=== PATIENT | male | born 1935 | race Caucasian/White ===

== ENCOUNTER → 2018-06-06 11:15 | Outpatient (CLI) | payer MEDICARE, OTHER, SELFPAY ==
--- NOTE | 2018-06-06 11:10 | DI.REPORT_ITS ---
SYMPTOM/DIAGNOSIS: PAIN LEFT HAND: There are degenerative changes involving the distal interphalangeal joints which are of mild degree. 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 In addition, there are degenerative changes involving the radial carpal joints and carpus. There is no evidence of a fracture or dislocation.
== END ==
PROVIDERS: PCP Family Medicine; Visit Provider Orthopaedic Surgery
DX: G56.02 Carpal tunnel syndrome, left upper limb (principal); M79.642 Pain in left hand; M18.12 Unilateral primary osteoarthritis of first carpometacarpal joint, left hand; M19.042 Primary osteoarthritis, left hand; M19.032 Primary osteoarthritis, left wrist
CPT/HCPCS: 73130; 99213

== ENCOUNTER → 2018-06-13 12:59 | Outpatient (CLI) | payer MEDICARE, SELFPAY | PROVIDERS: PCP Family Medicine; Visit Provider Orthopaedic Surgery | DX: G56.02 Carpal tunnel syndrome, left upper limb (principal); Z01.818 Encounter for other preprocedural examination ==

== ENCOUNTER → 2018-06-27 10:45 | Outpatient (CLI) | payer MEDICARE, OTHER, SELFPAY | PROVIDERS: PCP Family Medicine; Visit Provider Orthopaedic Surgery | DX: Z47.89 Encounter for other orthopedic aftercare (principal); G56.02 Carpal tunnel syndrome, left upper limb ==

== ENCOUNTER 2018-07-11 11:15 | Outpatient (REF) | payer MEDICARE, OTHER, SELFPAY ==
[2018-07-11 12:36] LABS: Abs Immature Grans 0.01 k/cumm (0.0-0.09); Absolute Basophil Count 0.03 k/cumm (0.0-0.2); Absolute Eosinophil Count 0.12 k/cumm (0.0-0.7); Absolute Lymphocyte Count 1.17 k/cumm (1.2-3.4); Absolute Monocyte Count 0.48 k/cumm (0.11-0.7); Absolute Neutrophil Count 4.46 k/cumm (1.2-6.7); Basophils % 0.5; Eosinophils % 1.9; HCT 36.4 % (40.0-50.0); HGB 12.2 g/dL (13.5-17.5); Immature Grans % 0.2; Lymphocytes % 18.7; Mean Corp. HGB Concentration 33.5 g/dL (32.0-36.0); Mean Corpuscular Hemoglobin 31.9 pg (27.0-33.0); Mean Corpuscular Volume 95.3 fL (80-95); Mean Platelet Volume 10.1 fL (8.0-11.0); Monocytes % 7.7; Platelet Count 327 x1000/uL (130-400); RBC 3.82 m/cumm (4.50-6.00); White Blood Cell Count 6.27 k/cumm (4.4-10.8)
[2018-07-11 12:44] LABS: ALT 38 U/L (12-78); AST 30 U/L (15-37); Albumin 3.9 g/dL (3.4-5.0); Alkaline Phosphatase 77 U/L (46-116); Anion Gap 11.3 mmol/L (3-11); BUN 23 mg/dL (7-18); Bilirubin, Total 0.5 mg/dL (0.2-1.0); CO2 25.7 mmol/L (21.0-32.0); CREATININE 1.11 mg/dL (0.70-1.30); Calcium 8.9 mg/dL (8.5-10.1); Chloride 103 mmol/L (98-107); Glucose 146 mg/dL (70-100); Potassium 4.1 mmol/L (3.5-5.1); Sodium 140 mmol/L (136-145); Total Protein 7.1 g/dL (6.4-8.2)
== END 2018-07-11 11:35 ==
LOC: NCHCN 11:15
PROVIDERS: PCP Family Medicine; Visit Provider Nurse Practitioner Family
DX: R10.32 Left lower quadrant pain (principal); M70.22 Olecranon bursitis, left elbow; Z01.812 Encounter for preprocedural laboratory examination
CPT/HCPCS: 80053; 85025

== ENCOUNTER 2018-07-13 11:16 | Emergency (ER) | payer MEDICARE, OTHER, SELFPAY ==
[2018-07-13 11:21] VITALS: BP 130/54; PULSE 80; RESP 16; TEMP 36.2; O2SAT 91
--- NOTE | 2018-07-13 11:32 | W.ED.GENAD ---
Discharge Plan Discharge Details Chief Complaint: Abd Prob Primary Care Provider: Yvonne Solorio ED Provider: Fabiano Thorpe Home Meds and New Rx's Prescriptions: No Action acetaminophen 500 MG tablet 1,000 mg PO Q4H PRN RF: 0 psyllium husk [Metamucil] 660 GM powder 1 tbsp PO DAILY RF: 0 melatonin 3 MG tablet 3 mg PO HS RF: 0 polyethylene glycol 3350 17 GM powder in packet 17 g PO DAILY Qty: 3350 RF: 11 ranitidine HCl 150 MG tablet 150 mg PO BID PRNQty: 180 RF: 3 finasteride 5 MG tablet 5 mg PO DAILY Qty: 90 RF: 3 diclofenac sodium [Voltaren] 100 GM gel 100 gm Topical BID MDD twice Qty: 1 RF: 2 linaclotide [Linzess] 290 MCG capsule 290 mcg PO DAILY MDD 1 30 Days Qty: 90 RF: 3 lisinopril-hydrochlorothiazide [Zestoretic] 1 EACH tablet 1 tab-cap PO DAILY Qty: 90 RF: 2 ondansetron HCl 4 MG tablet 4 mg PO TID PRN10 Days Qty: 30 RF: 2 paroxetine HCl [Paxil] 30 MG tablet 30 mg PO DAILY Qty: 90 RF: 3 naloxone [Narcan] 4 MG spray,non-aerosol 4 mg NS as directed 1 Days Qty: 2 RF: 0 fentanyl 1 EACH patch 72 hour 1 adh.patch Transdermal Q72H MDD 1 patch Q72 hours 30 Days Qty: 10 RF: 0 carica papaya 1 EACH tablet 1 ea PO PRN PRNRF: 0 mirtazapine 30 MG tablet 30 mg PO HS RF: 0 gabapentin 300 MG capsule 600 mg PO BID RF: 0 magnesium 250 MG tablet 250 mg PO DAILY RF: 0 oxycodone 10 MG tablet 10 mg PO TID RF: 0 Cyanocobalamin (Vitamin B-12) [Vitamin B-12] 1,000 MCG Capsule 1,000 mcg PO DAILY RF: 0 Famotidine 20 MG Tablet 20 mg PO PRN PRNRF: 0 hydrocodone-acetaminophen 1 EACH tablet 1 tab PO Q6H PRN PRNQty: 10 RF: 0 cyanocobalamin (vitamin B-12) 1,000 mcg Tablet 1,000 mcg PO DAILY RF: 0 ondansetron 4 mg Tablet,Disintegrating 4 mg PO QID PRNRF: 0 latanoprost [Xalatan] 2.5 ML drops 1 drp OU HS Qty: 0 RF: 0 cholecalciferol (vitamin D3) 1,000 UNITS tablet 1,000 units PO DAILY RF: 0 Medical Decision Making MDM Narrative Medical decision making narrative: Pleasant 83-year-old male presents from home with his with days of left lower quadrant abdominal pain. He is afebrile, in no significant distress, but exam reveals tenderness over the left lower quadrant. Differential diagnosis includes diverticulitis, colitis, ileus, pathology given the reports of discomfort with urination. Patient had IV access established, he was given fluids and antiemetics, peripheral laboratory testing and CT images. Patient's laboratories reveal a white blood cell count 7, hematocrit 37, platelets 362. Chemistries are reassuring with a normal lipase. Urinalysis with positive leuk esterase, many white blood cells and bacteria, positive epithelial cells. CT images do not reveal acute inflammatory or other findings. I do feel this is likely urinary tract infection, would not exclude an early diverticulitis. I will treat him with a course of Augmentin. He will follow-up with primary care for recheck. Return precautions to the ER were discussed with the patient and his at the bedside prior to discharge. ECG Data Attestation: I personally reviewed and interpreted this ECG (s) as follows: Interpretation: Normal sinus rhythm, the rate is 67, the QRS is narrow, no acute ST segment elevation HPI - General Adult General Mode of arrival: ambulatory. Date/Time Provider Initiated Documentation: 07/13/18 11:25. Limitations to Documentation: no limitations. Information obtained by: patient. History of Present Illness 83 year old M presents to the emergency department with the chief complaint of Lower abdominal pain, described as moderate, Quality is described as aching, and is localized to the abdomen and left. Patient reports no radiation. Patient started experiencing this day(s) and it has been constant. Rest improves symptom(s), Eating worsens symptoms . Patient notes fever/chills. Patient did receive the following treatments prior to arrival, none HPI Narrative: 83-year-old male presents from home with his complaining of the gradual onset of left lower quadrant abdominal pain over days time, no worse, associated with decreased p.o. intake, subjective fever and chills. Similar to previous episodes of diverticulitis. He also noted burning with urination and some discomfort with the stream of urine. Related Data Home Medications Medication Instructions Recorded Confirmed acetaminophen 1,000 mg PO Q4H PRN tab-cap 07/09/15 07/13/18 psyllium husk [Metamucil] 1 tbsp PO DAILY 01/04/16 07/13/18 melatonin 3 mg PO HS 03/07/17 07/13/18 ranitidine HCl 150 mg PO BID PRN #180 tab-cap 08/14/17 07/13/18 ondansetron HCl 4 mg PO TID PRN 10 Days #30 tab-cap 11/09/17 07/13/18 cholecalciferol (vitamin D3) 1,000 units PO DAILY 03/14/18 07/13/18 Cyanocobalamin (Vitamin B-12) 1,000 mcg PO DAILY 06/13/18 07/13/18 [Vitamin B-12] Famotidine 20 mg PO PRN PRN 06/13/18 07/13/18 carica papaya 1 ea PO PRN PRN 06/13/18 07/13/18 gabapentin 600 mg PO BID 06/13/18 07/13/18 magnesium 250 mg PO DAILY 06/13/18 07/13/18 mirtazapine 30 mg PO HS 06/13/18 07/13/18 oxycodone 10 mg PO TID 06/13/18 07/13/18 cyanocobalamin (vitamin B-12) 1,000 mcg PO DAILY 07/13/18 07/13/18 ondansetron 4 mg PO QID PRN 07/13/18 07/13/18 Previous Rx's Medication Instructions Recorded latanoprost [Xalatan] 1 drp OU HS #0 btl 03/09/17 polyethylene glycol 3350 17 g PO DAILY #3350 gm 08/13/17 finasteride 5 mg PO DAILY #90 tab 08/14/17 diclofenac sodium [Voltaren] 100 gm TOPICAL BID #1 script MDD 09/11/17 twice linaclotide [Linzess] 290 mcg PO DAILY 30 Days #90 cap 10/08/17 MDD 1 lisinopril-hydrochlorothiazide 1 tab-cap PO DAILY #90 tab-cap 11/09/17 [Zestoretic] paroxetine HCl [Paxil] 30 mg PO DAILY #90 tab-cap 01/22/18 naloxone [Narcan] 4 mg NS as directed 1 Days #2 spray 01/23/18 fentanyl 1 adh.patch TRANSDERMAL Q72H 30 03/26/18 Days #10 adh.patch MDD 1 patch Q72 hours hydrocodone-acetaminophen 1 tab PO Q6H PRN PRN #10 tablet 06/19/18 Allergies Allergy/AdvReac Type Severity Reaction Status Date / Time aspirin AdvReac Intermediate GI Bleeding Unverified 07/13/18 11:34 NSAIDS (Non-Steroidal AdvReac Intermediate GI Bleeding Unverified 07/13/18 11:34 Anti-Inflamma General Stated Complaint: Abd Prob DIAZ: 3 Review of Systems Review of Systems 8 systems reviewed and otherwise neg PFSH Family History Mother Diabetes Essential hypertension Cerebrovascular accident Uterine cancer Father Colon cancer Sister Breast cancer Sister Ovarian cancer Sister Ovarian cancer Sister No problems noted. Sister No problems noted. Sister No problems noted. Sister No problems noted. Sister No problems noted. Brother Diabetes Brother No problems noted. Brother No problems noted. Medical History Diabetes mellitus Diverticula of colon GERD (gastroesophageal reflux disease) GI bleed Hemorrhoid Hypertension Neuropathy Obesity Osteoarthritis Spinal stenosis Social History Smoking/Tobacco Use Status: Never Surgical History Endoscopic Carpal Tunnel release (05/04/15) Extraction of cataract (02/15/16) Repair of inguinal hernia (08/31/11) Rotator Cuff Repair (~1996) Total replacement of hip (~1999) spinal stenosis (08/15/01) spinal stenosis (~2005) Exam Narrative Exam Narrative: GEN: awake, alert, oriented 3. Pleasant, well groomed, interactive. HEAD: Normocephalic, atraumatic ENT: Mucous membranes moist, oropharynx unremarkable, External ear exam unremarkable EYES: PERRL, EOMI NECK: Full ROM, no COLTON, no menigismus CHEST/RESP: Nontender, clear to auscultation bilateral, no wheeze/rhonchi/rales CARDIOVASCULAR: RRR, no murmur, rub evan. 2+ Rad pulse bilateral ABDOMEN: Soft, tender left lower quadrant with mild rebound, no mass. +Bowel sounds EXT: Full ROM, no edema, no rash Neuro: Grossly normal neurologic exam, conversant, interactive. Psych: Speech fluent, thoughts congruent, affect normal Course Vital Signs Temperature 36.2 C L 07/13/18 11:21 Pulse 80 07/13/18 11:21 Respiratory Rate 16 07/13/18 11:21 Blood Pressure 130/54 L 07/13/18 11:21 Pulse Oximetry 91 L 07/13/18 11:21 Temperature 36.2 C L 07/13/18 11:21 Pulse 80 07/13/18 11:21 Respiratory Rate 16 07/13/18 11:21 Blood Pressure 130/54 L 07/13/18 11:21 Pulse Oximetry 91 L 07/13/18 11:21
--- NOTE | 2018-07-13 11:36 | ED.GENADUL_ITS ---
Discharge Plan Discharge Details Chief Complaint: Abd Prob Primary Care Provider: Yvonne Solorio ED Provider: Fabiano Thorpe Home Meds and New Rx's Prescriptions: No Action acetaminophen 500 MG tablet 1,000 mg PO Q4H PRN RF: 0 psyllium husk [Metamucil] 660 GM powder 1 tbsp PO DAILY RF: 0 melatonin 3 MG tablet 3 mg PO HS RF: 0 polyethylene glycol 3350 17 GM powder in packet 17 g PO DAILY Qty: 3350 RF: 11 ranitidine HCl 150 MG tablet 150 mg PO BID PRNQty: 180 RF: 3 finasteride 5 MG tablet 5 mg PO DAILY Qty: 90 RF: 3 diclofenac sodium [Voltaren] 100 GM gel 100 gm Topical BID MDD twice Qty: 1 RF: 2 linaclotide [Linzess] 290 MCG capsule 290 mcg PO DAILY MDD 1 30 Days Qty: 90 RF: 3 lisinopril-hydrochlorothiazide [Zestoretic] 1 EACH tablet 1 tab-cap PO DAILY Qty: 90 RF: 2 ondansetron HCl 4 MG tablet 4 mg PO TID PRN10 Days Qty: 30 RF: 2 paroxetine HCl [Paxil] 30 MG tablet 30 mg PO DAILY Qty: 90 RF: 3 naloxone [Narcan] 4 MG spray,non-aerosol 4 mg NS as directed 1 Days Qty: 2 RF: 0 fentanyl 1 EACH patch 72 hour 1 adh.patch Transdermal Q72H MDD 1 patch Q72 hours 30 Days Qty: 10 RF: 0 carica papaya 1 EACH tablet 1 ea PO PRN PRNRF: 0 mirtazapine 30 MG tablet 30 mg PO HS RF: 0 gabapentin 300 MG capsule 600 mg PO BID RF: 0 magnesium 250 MG tablet 250 mg PO DAILY RF: 0 oxycodone 10 MG tablet 10 mg PO TID RF: 0 Cyanocobalamin (Vitamin B-12) [Vitamin B-12] 1,000 MCG Capsule 1,000 mcg PO DAILY RF: 0 Famotidine 20 MG Tablet 20 mg PO PRN PRNRF: 0 hydrocodone-acetaminophen 1 EACH tablet 1 tab PO Q6H PRN PRNQty: 10 RF: 0 cyanocobalamin (vitamin B-12) 1,000 mcg Tablet 1,000 mcg PO DAILY RF: 0 ondansetron 4 mg Tablet,Disintegrating 4 mg PO QID PRNRF: 0 latanoprost [Xalatan] 2.5 ML drops 1 drp OU HS Qty: 0 RF: 0 cholecalciferol (vitamin D3) 1,000 UNITS tablet 1,000 units PO DAILY RF: 0 Medical Decision Making MDM Narrative Medical decision making narrative: Pleasant 83-year-old male presents from home with his with days of left lower quadrant abdominal pain. He is afebrile, in no significant distress, but exam reveals tenderness over the left lower quadrant. Differential diagnosis includes diverticulitis, colitis, ileus, pathology given the reports of discomfort with urination. Patient had IV access established, he was given fluids and antiemetics, peripheral laboratory testing and CT images. Patient's laboratories reveal a white blood cell count 7, hematocrit 37, platelets 362. Chemistries are reassuring with a normal lipase. Urinalysis with positive leuk esterase, many white blood cells and bacteria, positive epithelial cells. CT images do not reveal acute inflammatory or other findings. I do feel this is likely urinary tract infection, would not exclude an early diverticulitis. I will treat him with a course of Augmentin. He will follow- up with primary care for recheck. Return precautions to the ER were discussed with the patient and his at the bedside prior to discharge. ECG Data Attestation: I personally reviewed and interpreted this ECG (s) as follows: Interpretation: Normal sinus rhythm, the rate is 67, the QRS is narrow, no acute ST segment elevation HPI - General Adult General Mode of arrival: ambulatory . Date/Time Provider Initiated Documentation: 07/13/18 11:25 . Limitations to Documentation: no limitations . Information obtained by: patient . History of Present Illness 83 year old M presents to the emergency department with the chief complaint of Lower abdominal pain, described as moderate, Quality is described as aching , and is localized to the abdomen and left. Patient reports no radiation. Patient started experiencing this day(s) and it has been constant. Rest improves symptom(s), Eating worsens symptoms . Patient notes fever/chills. Patient did receive the following treatments prior to arrival, none HPI Narrative: 83-year-old male presents from home with his complaining of the gradual onset of left lower quadrant abdominal pain over days time, no worse , associated with decreased p.o. intake, subjective fever and chills. Similar to previous episodes of diverticulitis. He also noted burning with urination and some discomfort with the stream of urine. Related Data Home Medications Medication Instructions Recorded Confirmed acetaminophen 1,000 mg PO Q4H PRN tab-cap 07/09/15 07/13/18 psyllium husk [Metamucil] 1 tbsp PO DAILY 01/04/16 07/13/18 melatonin 3 mg PO HS 03/07/17 07/13/18 ranitidine HCl 150 mg PO BID PRN #180 tab-cap 08/14/17 07/13/18 ondansetron HCl 4 mg PO TID PRN 10 Days #30 tab-cap 11/09/17 07/13/18 cholecalciferol (vitamin D3) 1,000 units PO DAILY 03/14/18 07/13/18 Cyanocobalamin (Vitamin B-12) 1,000 mcg PO DAILY 06/13/18 07/13/18 [Vitamin B-12] Famotidine 20 mg PO PRN PRN 06/13/18 07/13/18 carica papaya 1 ea PO PRN PRN 06/13/18 07/13/18 gabapentin 600 mg PO BID 06/13/18 07/13/18 magnesium 250 mg PO DAILY 06/13/18 07/13/18 mirtazapine 30 mg PO HS 06/13/18 07/13/18 oxycodone 10 mg PO TID 06/13/18 07/13/18 cyanocobalamin (vitamin B-12) 1,000 mcg PO DAILY 07/13/18 07/13/18 ondansetron 4 mg PO QID PRN 07/13/18 07/13/18 Previous Rx's Medication Instructions Recorded latanoprost [Xalatan] 1 drp OU HS #0 btl 03/09/17 polyethylene glycol 3350 17 g PO DAILY #3350 gm 08/13/17 finasteride 5 mg PO DAILY #90 tab 08/14/17 diclofenac sodium [Voltaren] 100 gm TOPICAL BID #1 script MDD 09/11/17 twice linaclotide [Linzess] 290 mcg PO DAILY 30 Days #90 cap 10/08/17 MDD 1 lisinopril-hydrochlorothiazide 1 tab-cap PO DAILY #90 tab-cap 11/09/17 [Zestoretic] paroxetine HCl [Paxil] 30 mg PO DAILY #90 tab-cap 01/22/18 naloxone [Narcan] 4 mg NS as directed 1 Days #2 spray 01/23/18 fentanyl 1 adh.patch TRANSDERMAL Q72H 30 03/26/18 Days #10 adh.patch MDD 1 patch Q72 hours hydrocodone-acetaminophen 1 tab PO Q6H PRN PRN #10 tablet 06/19/18 Allergies Allergy/AdvReac Type Severity Reaction Status Date / Time aspirin AdvReac Intermediate GI Bleeding Unverified 07/13/18 11:34 NSAIDS (Non-Steroidal AdvReac Intermediate GI Bleeding Unverified 07/13/18 11:34 Anti-Inflamma General Stated Complaint: Abd Prob DIAZ: 3 Review of Systems Review of Systems 8 systems reviewed and otherwise neg PFSH Family History Mother Diabetes Essential hypertension Cerebrovascular accident Uterine cancer Father Colon cancer Sister Breast cancer Sister Ovarian cancer Sister Ovarian cancer Sister No problems noted. Sister No problems noted. Sister No problems noted. Sister No problems noted. Sister No problems noted. Brother Diabetes Brother No problems noted. Brother No problems noted. Medical History Diabetes mellitus Diverticula of colon GERD (gastroesophageal reflux disease) GI bleed Hemorrhoid Hypertension Neuropathy Obesity Osteoarthritis Spinal stenosis Social History Smoking/Tobacco Use Status: Never Surgical History Endoscopic Carpal Tunnel release (05/04/15) Extraction of cataract (02/15/16) Repair of inguinal hernia (08/31/11) Rotator Cuff Repair (~1996) Total replacement of hip (~1999) spinal stenosis (08/15/01) spinal stenosis (~2005) Exam Narrative Exam Narrative: GEN: awake, alert, oriented 3. Pleasant, well groomed, interactive. HEAD: Normocephalic, atraumatic ENT: Mucous membranes moist, oropharynx unremarkable, External ear exam unremarkable EYES: PERRL, EOMI NECK: Full ROM, no COLTON, no menigismus CHEST/RESP: Nontender, clear to auscultation bilateral, no wheeze/rhonchi/rales CARDIOVASCULAR: RRR, no murmur, rub evan. 2+ Rad pulse bilateral ABDOMEN: Soft, tender left lower quadrant with mild rebound, no mass. +Bowel sounds EXT: Full ROM, no edema, no rash Neuro: Grossly normal neurologic exam, conversant, interactive. Psych: Speech fluent, thoughts congruent, affect normal Course Vital Signs Temperature 36.2 C L 07/13/18 11:21 Pulse 80 07/13/18 11:21 Respiratory Rate 16 07/13/18 11:21 Blood Pressure 130/54 L 07/13/18 11:21 Pulse Oximetry 91 L 07/13/18 11:21 Temperature 36.2 C L 07/13/18 11:21 Pulse 80 07/13/18 11:21 Respiratory Rate 16 07/13/18 11:21 Blood Pressure 130/54 L 07/13/18 11:21 Pulse Oximetry 91 L 07/13/18 11:21
[2018-07-13] MEDS: Ondansetron 4 MG/2 ML VIAL IVP (11:54)
[2018-07-13] MEDS: Normal Saline 1,000 ML 125 ML IV (11:54)
[2018-07-13 11:57] LABS: Abs Immature Grans 0.02 k/cumm (0.0-0.09); Absolute Basophil Count 0.03 k/cumm (0.0-0.2); Absolute Eosinophil Count 0.08 k/cumm (0.0-0.7); Absolute Lymphocyte Count 1.43 k/cumm (1.2-3.4); Absolute Neutrophil Count 5.65 k/cumm (1.2-6.7); Basophils % 0.4; HCT 37.8 % (40.0-50.0); HGB 12.9 g/dL (13.5-17.5); Immature Grans % 0.3; Lymphocytes % 18.1; Mean Corp. HGB Concentration 34.1 g/dL (32.0-36.0); Mean Corpuscular Hemoglobin 32.3 pg (27.0-33.0); Mean Corpuscular Volume 94.5 fL (80-95); Mean Platelet Volume 9.5 fL (8.0-11.0); Monocytes % 8.8; Neutrophils % 71.4; Platelet Count 362 x1000/uL (130-400); RBC Distribution Width 13.1 % (11.8-14.1); White Blood Cell Count 7.91 k/cumm (4.4-10.8)
[2018-07-13 12:10] LABS: ALT 28 U/L (12-78); AST 18 U/L (15-37); Alkaline Phosphatase 80 U/L (46-116); Anion Gap 9.4 mmol/L (3-11); BUN 25 mg/dL (7-18); Bilirubin, Total 0.3 mg/dL (0.2-1.0); CO2 28.6 mmol/L (21.0-32.0); CREATININE 0.97 mg/dL (0.70-1.30); Calcium 9.1 mg/dL (8.5-10.1); Chloride 101 mmol/L (98-107); Glucose 105 mg/dL (70-100); Lipase 197 U/L (73-393); Potassium 4.1 mmol/L (3.5-5.1); Sodium 139 mmol/L (136-145); Total Protein 7.6 g/dL (6.4-8.2)
[2018-07-13 12:15] LABS: Bilirubin Negative (Negative); Blood Negative (Negative); Clarity Sl Cloudy; Glucose Negative (Negative); Ketones Negative (Negative); Leukocyte Esterase Moderate (Negative); Nitrite Negative (Negative); Urobilinogen 0.2 EU/dL (Up TO 0.2); pH 5.5 (5-8)
[2018-07-13 12:23] LABS: Bacteria Moderate HPF (Negative); C & S Indicated? No/Sq. Contamination; Casts Negative LPF (Negative); Crystals Negative HPF (Negative); Epithelial Cells Many HPF (Negative); Mucus Trace (Negative); RBC Negative (0-2); WBC >50 HPF (0-5)
[2018-07-13] MEDS: Omnipaque 350 MG/ML 100 ML BTL IJ (12:51)
--- NOTE | 2018-07-13 12:52 | DI.CT_ITS ---
SYMPTOM/DIAGNOSIS: LLQ ABD PAIN ABDOMEN AND PELVIC CT: Comparison is made with 04/11/18. The lung bases show no acute abnormalities. The liver is normal in size. No suspicious hepatic mass is seen. The gallbladder is negative. No biliary ductal dilatation is present. Calcifications are seen in the liver and spleen and lung bases consistent with prior granulomatous disease. The spleen, pancreas and adrenal glands are unremarkable. The kidneys show normal and symmetric enhancement. There are a few tiny hypodensities in the kidneys likely reflecting small cysts but are too small for further characterization. The renal collecting system appears unremarkable. The urinary bladder is intact. There is a calcification seen in the region of the urinary bladder which may represent a bladder stone. It is difficult to assess due to the artifact from the patient's bilateral total hip replacements. There is atherosclerosis of the abdominal aorta without aneurysmal dilatation. No significant abdominal or pelvic adenopathy, ascites or pneumoperitoneum is seen. There is diverticulosis of the colon but no evidence of acute diverticulitis. The bowel shows no evidence of obstruction or inflammation. No findings to suggest an acute appendicitis are present. The patient has bilateral total hip prostheses which cause artifact in the pelvis and decrease evaluation of portions of the urinary bladder and colon. Severe degenerative changes are seen throughout the spine. The patient is status L 1 through L 5 laminectomies. IMPRESSION: No definite acute abdominal or pelvic abnormality.
[2018-07-13] MEDS: MORPHine 10 MG/ML VIAL 2 MG IVP (12:59)
[2018-07-13 13:00] VITALS: BP 140/56; PULSE 67; RESP 16; O2SAT 98
--- NOTE | 2018-07-13 13:16 | DI.VRAD_ITS ---
EXAM: CT Abdomen and Pelvis With Intravenous Contrast CLINICAL HISTORY: 83 years old, male; Pain; Abdominal pain; Flank; Left lower quadrant (llq); Patient HX: Llq abdomen pain. TECHNIQUE: Axial computed tomography images of the abdomen and pelvis with intravenous contrast. Coronal and sagittal reformatted images were created and reviewed. COMPARISON: CT - ABD PELVIS WITH CONTRAST 04/11/2018 10:54 AM FINDINGS: Bilateral total hip placements with streak artifact through the pelvis including the region of the ureterovesical junctions. There is a possible calcification in the pelvis on the axial images which could not be excluded from being in the urinary bladder however on the reformatted images particularly the sagittal this appears to be posterior to the bladder. Diverticulosis without evidence of diverticulitis. No significant free fluid. No obstructive uropathy. No evidence of bowel obstruction. Small hiatal hernia. No specific inflammatory process. IMPRESSION: No definite etiology identified for the patient's symptoms. Dictated and Authenticated by: Nathan Madison MD. Ordering:MICHAEL MAURICE MD
[2018-07-13] MEDS: Amoxicillin 875/Clav. 125 TAB PO (13:39)
[2018-07-13 13:40] VITALS: BP 122/60; PULSE 65; RESP 16; O2SAT 96
== END 2018-07-13 13:49 | disposition home or self-care (01) ==
PROVIDERS: Emergency Provider Emergency Medicine; PCP Family Medicine
DX: N30.00 Acute cystitis without hematuria (principal); I10 Essential (primary) hypertension; E11.40 Type 2 diabetes mellitus with diabetic neuropathy, unspecified
CPT/HCPCS: 36415; 80053; 83690; 93005; 96374; 96375; 99285; 74177; 81003; 81015; 85025; 93010; 99284; J2270; J2405; J3490

== ENCOUNTER 2019-04-21 09:27 | Emergency (ER) | payer OTHER, SELFPAY ==
[2019-04-21] VITALS (57 sets, daily range): BP systolic 106–169; BP diastolic 46–84; PULSE 85–101; RESP 4–26; TEMP 36.7–37.4; O2SAT 88–98
[2019-04-21] MEDS: Albuterol/Ipratropium 3 ML UPD VIAL (09:35)
--- NOTE | 2019-04-21 09:40 | W.ED.GENAD ---
Discharge Plan Disposition Patient Disposition: HOME Condition: Improving Discharge Details Chief Complaint: SOB Clinical Impression: Dyspnea, Acute exacerbation of chronic obstructive pulmonary disease (COPD) Primary Care Provider: Yvonne Solorio ED Provider: Dipesh Mcdaniel Minong Meds and New Rx's Prescriptions: New prednisone 20 mg tablet 40 mg PO DAILY 4 Days Qty: 8 RF: 0 azithromycin 250 mg tablet 250 mg PO DAILY 5 Days Qty: 5 RF: 0 Continued acetaminophen 500 MG tablet 1,000 mg PO Q4H PRN RF: 0 Metamucil 660 GM powder 1 tbsp PO DAILY RF: 0 melatonin 3 MG tablet 3 mg PO HS RF: 0 polyethylene glycol 3350 17 GM powder in packet 17 g PO DAILY Qty: 3350 RF: 11 ranitidine HCl 150 MG tablet 150 mg PO BID PRNQty: 180 RF: 3 finasteride 5 MG tablet 5 mg PO DAILY Qty: 90 RF: 3 diclofenac sodium [Voltaren] 100 GM gel 100 gm Topical BID MDD twice Qty: 1 RF: 2 Linzess 290 MCG capsule 290 mcg PO DAILY MDD 1 30 Days Qty: 90 RF: 3 paroxetine HCl [Paxil] 30 MG tablet 30 mg PO DAILY Qty: 90 RF: 3 Narcan 4 MG spray,non-aerosol 4 mg NS as directed 1 Days Qty: 2 RF: 0 fentanyl 1 EACH patch 72 hour 1 adh.patch Transdermal Q72H MDD 1 patch Q72 hours 30 Days Qty: 10 RF: 0 carica papaya 1 EACH tablet 1 ea PO PRN PRNRF: 0 mirtazapine 30 MG tablet 30 mg PO HS RF: 0 gabapentin 300 MG capsule 300 mg PO TID RF: 0 magnesium 250 MG tablet 250 mg PO DAILY RF: 0 oxycodone 10 MG tablet 10 mg PO TID RF: 0 Cyanocobalamin (Vitamin B-12) [Vitamin B-12] 1,000 MCG Capsule 1,000 mcg PO DAILY RF: 0 Famotidine 20 MG Tablet 20 mg PO PRN PRNRF: 0 hydrocodone-acetaminophen 1 EACH tablet 1 tab PO Q6H PRN PRNQty: 10 RF: 0 cyanocobalamin (vitamin B-12) 1,000 mcg Tablet 1,000 mcg PO DAILY RF: 0 tamsulosin 0.4 mg Capsule 0.4 mg PO HS RF: 0 melatonin 3 mg Tablet 3 mg PO HS RF: 0 losartan-hydrochlorothiazide 100-25 mg Tablet 1 tab PO DAILY RF: 0 ondansetron HCl 4 mg Tablet 4 mg PO TID PRNRF: 0 dextromethorphan-guaifenesin 20-400 mg Tablet 1 tab PO Q6H PRNRF: 0 amitriptyline 10 mg Tablet 10 - 20 mg PO HS RF: 0 albuterol sulfate [Ventolin HFA] 90 mcg/actuation Hfa Aerosol Inhaler 2 puff Inhalation Q6H PRNRF: 0 dextromethorphan-guaifenesin [Mucinex DM] 60-1,200 mg Tablet Extended Release 12 Hr 1 tab PO BID RF: 0 albuterol sulfate 2.5 mg /3 mL (0.083 %) Solution For Nebulization 2.5 mg Inhalation Q6H PRNRF: 0 latanoprost [Xalatan] 2.5 ML drops 1 drp OU HS Qty: 0 RF: 0 cholecalciferol (vitamin D3) 1,000 UNITS tablet 1,000 units PO DAILY RF: 0 Discharge Instructions Instructions: COPD (Chronic Obstructive Pulmonary Disease) (ED), Dyspnea (ED) Additional Instructions: Your treated for your shortness of breath in our emergency department today. Your exam was significant for wheezing consistent with exacerbation of your COPD. We did not find any evidence of blockage to your heart such as cardiac ischemia. We did not find any evidence of a blood clot or pneumonia on your lung imaging. You did mention that you have had shortness of breath with walking for quite some time and I feel that this needs to be addressed further with your primary care provider. They may require obtaining another echocardiogram to further evaluate this. Follow-up with your primary care provider is very important. Return to the emergency department if your symptoms worsen in the interim. We have prescribed an antibiotic which she will start today, Z-Rush, as well as steroids called prednisone she will start tomorrow. Continue using your nebulizers at home as needed. Discharge Data Discharge Date/Time-TO BE ENTERED AT DEPARTURE: 04/21/19 14:45 Medical Decision Making CTA read by radiologist as no PE, no acute pathology. Patient feeling much better and requesting DC to home after multiple nebulizer treatments and 125 mg Solu-Medrol. Given patient's reports of ongoing dyspnea on exertion for the past year, he likely will require an echocardiogram. I suspect however his issue today is more of COPD exacerbation given the amount of bronchospasm he has. We were able to have him ambulate in the ED prior to discharge and he was able to do so with his baseline work of breathing according to the patient. Oxygen saturations greater than 90%. Prescription for prednisone 40 mg x 4 days as well as Z-Rush given. He has his home albuterol which she will be using. [facility] CR CHEST [REPORTED] 07/19/2016 at 09:18 AM EDT [[id number]] KWADWO PARKS SR [[id number]] 81Y Order/Notes Attachments Order Info Date: 1935 Study Reason: REASON FOR EXAM: EXERCISE RELATED SWEATING, FATIGUE, NAUSEA Patient History: MEDICAL HISTORY: OBESITY, CHRONIC BACK PAIN, FOOT DROP Referring Physician: HENNY LINK MD Age: 83Y Sex: M Study Priority: ROUTINE Phys Primary #: No Report Split View [id number]/PreviousFlow LayoutHide/ShowWindow/LevelSharp EdgeOrientationStudy ActionsViewer Help CR CHEST [REPORTED] 07/19/2016 at 09:18 AM EDT [[id number]] KWADWO PARKS SR [[id number]] 81Y Report Info Name: KWADWO PARKS SR Date: 1935 Description: CHEST 2 VIEWS PA,LAT Procedure Code: RAD-CXRC Radiologist: MCKENNA CARBALLO ID: [id number] Sex: M Acc#: [id number] Study Date: 07/19/2016 09:18 AM EDT Report Date: 07/19/2016 10:50 AM EDT RAD-CXRC^CHEST 2 VIEWS PA,LAT ^NVT MEDICAL HISTORY: OBESITY, CHRONIC BACK PAIN, FOOT DROP Patient Name: KWADWO PARKS SR Unit #: [id number] Loc: DI Ordering Provider: HENNY LINK M.D. Status: REG [facility] Primary Care Provider: HENNY LINK M.D. Date of Exam: 07/19/16 Sex: M : 1935 Age: 81 Exam(s) [id number] RAD:Chest 2 Views PA,Lat SYMPTOM/DIAGNOSIS: EXERCISE RELATED SWEATING, FATIGUE, NAUSEA, R61, DECREASED FUNCTIONAL MOBILITY, Z74.09, CHRONIC BACK PAIN PA AND LATERAL CHEST: There are no prior comparison exams. The heart size is within normal limits. The aorta is mildly tortuous. The lungs are well inflated and clear. No infiltrate or effusion is seen. There are no visible emphysematous or fibrotic changes. No pulmonary nodules or adenopathy is visible. Impression: Negative chest xray. Ordered By: HENNY LINK M.D. CC: Dictated By: EMMANUEL CARBALLO M.D. 07/19/16 1034 1146 Transcribed By: Rosemary Jones 07/19/16 1050 This is privileged, confidential information intended only for the provider named. Any use or distribution by any person other than this provider is strictly prohibited. If you receive this report in error, please notify us immediately at [phone] and return the original report to us at the address above. Thank-you. 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 No fevers, has felt rundown. He has had short-term relief with home nebulizers. No other treatment thus far. Denies chest pain, palpitations, lightheadedness, weight gain, leg swelling. General Date/Time Provider Initiated Documentation: 04/21/19 09:35. Related Data Home Medications Medication Instructions Recorded Confirmed acetaminophen 1,000 mg PO Q4H PRN tab-cap 07/09/15 04/21/19 Metamucil 1 tbsp PO DAILY 01/04/16 04/21/19 melatonin 3 mg PO HS 03/07/17 04/21/19 latanoprost [Xalatan] 1 drp OU HS #0 btl 03/09/17 04/21/19 polyethylene glycol 3350 17 g PO DAILY #3350 gm 08/13/17 04/21/19 finasteride 5 mg PO DAILY #90 tab 08/14/17 04/21/19 ranitidine HCl 150 mg PO BID PRN #180 tab-cap 08/14/17 04/21/19 diclofenac sodium [Voltaren] 100 gm TOPICAL BID #1 script MDD 09/11/17 04/21/19 twice Linzess 290 mcg PO DAILY 30 Days #90 cap 10/08/17 04/21/19 MDD 1 paroxetine HCl [Paxil] 30 mg PO DAILY #90 tab-cap 01/22/18 04/21/19 Narcan 4 mg NS as directed 1 Days #2 spray 01/23/18 04/21/19 cholecalciferol (vitamin D3) 1,000 units PO DAILY 03/14/18 04/21/19 fentanyl 1 adh.patch TRANSDERMAL Q72H 30 03/26/18 04/21/19 Days #10 adh.patch MDD 1 patch Q72 hours Cyanocobalamin (Vitamin B-12) 1,000 mcg PO DAILY 06/13/18 04/21/19 [Vitamin B-12] Famotidine 20 mg PO PRN PRN 06/13/18 04/21/19 carica papaya 1 ea PO PRN PRN 06/13/18 04/21/19 gabapentin 300 mg PO TID 06/13/18 04/21/19 magnesium 250 mg PO DAILY 06/13/18 04/21/19 mirtazapine 30 mg PO HS 06/13/18 04/21/19 oxycodone 10 mg PO TID 06/13/18 04/21/19 hydrocodone-acetaminophen 1 tab PO Q6H PRN PRN #10 tablet 06/19/18 04/21/19 cyanocobalamin (vitamin B-12) 1,000 mcg PO DAILY 07/13/18 04/21/19 albuterol sulfate 2.5 mg INHALATION Q6H PRN 04/21/19 04/21/19 albuterol sulfate [Ventolin HFA] 2 puff INHALATION Q6H PRN 04/21/19 04/21/19 amitriptyline 10 - 20 mg PO HS 04/21/19 04/21/19 azithromycin 250 mg PO DAILY 5 Days #5 tab 04/21/19 dextromethorphan-guaifenesin 1 tab PO Q6H PRN 04/21/19 04/21/19 dextromethorphan-guaifenesin 1 tab PO BID 04/21/19 04/21/19 [Mucinex DM] losartan-hydrochlorothiazide 1 tab PO DAILY 04/21/19 04/21/19 melatonin 3 mg PO HS 04/21/19 04/21/19 ondansetron HCl 4 mg PO TID PRN 04/21/19 04/21/19 prednisone 40 mg PO DAILY 4 Days #8 tab 04/21/19 tamsulosin 0.4 mg PO HS 04/21/19 04/21/19 Previous Rx's Medication Instructions Recorded latanoprost [Xalatan] 1 drp OU HS #0 btl 03/09/17 polyethylene glycol 3350 17 g PO DAILY #3350 gm 08/13/17 finasteride 5 mg PO DAILY #90 tab 08/14/17 diclofenac sodium [Voltaren] 100 gm TOPICAL BID #1 script MDD 09/11/17 twice Linzess 290 mcg PO DAILY 30 Days #90 cap 10/08/17 MDD 1 paroxetine HCl [Paxil] 30 mg PO DAILY #90 tab-cap 01/22/18 Narcan 4 mg NS as directed 1 Days #2 spray 01/23/18 fentanyl 1 adh.patch TRANSDERMAL Q72H 30 03/26/18 Days #10 adh.patch MDD 1 patch Q72 hours hydrocodone-acetaminophen 1 tab PO Q6H PRN PRN #10 tablet 06/19/18 azithromycin 250 mg PO DAILY 5 Days #5 tab 04/21/19 prednisone 40 mg PO DAILY 4 Days #8 tab 04/21/19 Allergies Allergy/AdvReac Type Severity Reaction Status Date / Time aspirin AdvReac Intermediate GI Bleeding Unverified 07/13/18 11:34 NSAIDS (Non-Steroidal AdvReac Intermediate GI Bleeding Unverified 07/13/18 11:34 Anti-Inflamma General Stated Complaint: SOB DIAZ: 2 Review of Systems Constitutional Denies chills, Denies fatigue, Denies fever(s) and Denies lethargy Eyes Denies loss of vision ENT Denies nasal congestion and Denies sore throat Cardiovascular Denies chest pain Gastrointestinal Denies abdominal pain, Denies nausea and Denies vomiting Musculoskeletal Denies back pain, Denies muscle weakness and Denies numbness Integumentary/Breasts Denies rash Neurologic Denies focal weakness, Denies loss of vision and Denies numbness Endocrine Denies fatigue Hematologic/Lymphatic Denies easy bruising PFSH Social History Smoking/Tobacco Use Status: Never Alcohol Intake: never Drug use: Never Do you feel safe at home: Yes Do you feel safe in your relationship?: Yes Exam Const General: cooperative, healthy appearing and no acute distress HENMT Head: normal to inspection Ears: hearing grossly normal bilaterally Eyes EOM: EOM intact bilaterally Neck Neck: normal visual inspection Resp Effort & Inspection: normal respiratory effort Other: Tachypnea, wheezing diffusely. Cardio Rate: regular rate Rhythm: regular rhythm Heart Sounds: no murmurs GI Palpation: soft and nontender Skin General skin exam: no rashes or lesions noted Neuro General: alert, awake and oriented x3 Speech: speech normal Gait: normal gait Extrem General: normal to inspection Other: Trace pitting edema lower extremities bilaterally Course Vital Signs Temperature 37.1 C 04/21/19 09:37 Pulse 94 H 04/21/19 09:37 Respiratory Rate 10 L 04/21/19 09:37 Blood Pressure 169/73 H 04/21/19 09:37 Pulse Oximetry 97 04/21/19 09:37 Temperature 37.1 C 04/21/19 09:37 Temperature Source Skin 04/21/19 09:37 Pulse 94 H 04/21/19 09:37 Respiratory Rate 10 L 04/21/19 09:37 Blood Pressure 169/73 H 04/21/19 09:37 Pulse Oximetry 97 04/21/19 09:37 Oxygen Delivery Method Aerosol Mask 04/21/19 09:37 Pain Level 0 04/21/19 09:37
--- NOTE | 2019-04-21 09:43 | ED.GENADUL_ITS ---
Discharge Plan Disposition Patient Disposition: HOME Condition: Improving Discharge Details Chief Complaint: SOB Clinical Impression: Dyspnea, Acute exacerbation of chronic obstructive pulmonary disease (COPD) Primary Care Provider: Yvonne Solorio ED Provider: Dipesh Mcdaniel Clyo Meds and New Rx's Prescriptions: New prednisone 20 mg tablet 40 mg PO DAILY 4 Days Qty: 8 RF: 0 azithromycin 250 mg tablet 250 mg PO DAILY 5 Days Qty: 5 RF: 0 Continued acetaminophen 500 MG tablet 1,000 mg PO Q4H PRN RF: 0 Metamucil 660 GM powder 1 tbsp PO DAILY RF: 0 melatonin 3 MG tablet 3 mg PO HS RF: 0 polyethylene glycol 3350 17 GM powder in packet 17 g PO DAILY Qty: 3350 RF: 11 ranitidine HCl 150 MG tablet 150 mg PO BID PRNQty: 180 RF: 3 finasteride 5 MG tablet 5 mg PO DAILY Qty: 90 RF: 3 diclofenac sodium [Voltaren] 100 GM gel 100 gm Topical BID MDD twice Qty: 1 RF: 2 Linzess 290 MCG capsule 290 mcg PO DAILY MDD 1 30 Days Qty: 90 RF: 3 paroxetine HCl [Paxil] 30 MG tablet 30 mg PO DAILY Qty: 90 RF: 3 Narcan 4 MG spray,non-aerosol 4 mg NS as directed 1 Days Qty: 2 RF: 0 fentanyl 1 EACH patch 72 hour 1 adh.patch Transdermal Q72H MDD 1 patch Q72 hours 30 Days Qty: 10 RF: 0 carica papaya 1 EACH tablet 1 ea PO PRN PRNRF: 0 mirtazapine 30 MG tablet 30 mg PO HS RF: 0 gabapentin 300 MG capsule 300 mg PO TID RF: 0 magnesium 250 MG tablet 250 mg PO DAILY RF: 0 oxycodone 10 MG tablet 10 mg PO TID RF: 0 Cyanocobalamin (Vitamin B-12) [Vitamin B-12] 1,000 MCG Capsule 1,000 mcg PO DAILY RF: 0 Famotidine 20 MG Tablet 20 mg PO PRN PRNRF: 0 hydrocodone-acetaminophen 1 EACH tablet 1 tab PO Q6H PRN PRNQty: 10 RF: 0 cyanocobalamin (vitamin B-12) 1,000 mcg Tablet 1,000 mcg PO DAILY RF: 0 tamsulosin 0.4 mg Capsule 0.4 mg PO HS RF: 0 melatonin 3 mg Tablet 3 mg PO HS RF: 0 losartan-hydrochlorothiazide 100-25 mg Tablet 1 tab PO DAILY RF: 0 ondansetron HCl 4 mg Tablet 4 mg PO TID PRNRF: 0 dextromethorphan-guaifenesin 20-400 mg Tablet 1 tab PO Q6H PRNRF: 0 amitriptyline 10 mg Tablet 10 - 20 mg PO HS RF: 0 albuterol sulfate [Ventolin HFA] 90 mcg/actuation Hfa Aerosol Inhaler 2 puff Inhalation Q6H PRNRF: 0 dextromethorphan-guaifenesin [Mucinex DM] 60-1,200 mg Tablet Extended Release 12 Hr 1 tab PO BID RF: 0 albuterol sulfate 2.5 mg /3 mL (0.083 %) Solution For Nebulization 2.5 mg Inhalation Q6H PRNRF: 0 latanoprost [Xalatan] 2.5 ML drops 1 drp OU HS Qty: 0 RF: 0 cholecalciferol (vitamin D3) 1,000 UNITS tablet 1,000 units PO DAILY RF: 0 Discharge Instructions Instructions: COPD (Chronic Obstructive Pulmonary Disease) (ED), Dyspnea (ED) Additional Instructions: Your treated for your shortness of breath in our emergency department today. Your exam was significant for wheezing consistent with exacerbation of your COPD. We did not find any evidence of blockage to your heart such as cardiac ischemia. We did not find any evidence of a blood clot or pneumonia on your lung imaging. You did mention that you have had shortness of breath with walking for quite some time and I feel that this needs to be addressed further w ith your primary care provider. They may require obtaining another echocardiogram to further evaluate this. Follow-up with your primary care provider is very important. Return to the emergency department if your symptoms worsen in the interim. We have prescribed an antibiotic which she will start today, Z-Rush, as well as steroids called prednisone she will start tomorrow. Continue using your nebulizers at home as needed. Discharge Data Discharge Date/Time-TO BE ENTERED AT DEPARTURE: 04/21/19 14:45 Medical Decision Making CTA read by radiologist as no PE, no acute pathology. Patient feeling much better and requesting DC to home after multiple nebulizer treatments and 125 mg Solu-Medrol. Given patient's reports of ongoing dyspnea on exertion for the past year, he likely will require an echocardiogram. I suspect however his issue today is more of COPD exacerbation given the amount of bronchospasm he has. We were able to have him ambulate in the ED prior to discharge and he was able to do so with his baseline work of breathing according to the patient. Oxygen saturations greater than 90%. Prescription for prednisone 40 mg x 4 days as well as Z-Rush given. He has his home albuterol which she will be using. [facility] CR CHEST [REPORTED] 07/19/2016 at 09:18 AM EDT [[id number]] DEANNARonaldoKWADWO, [[id number]] 81Y Order/Notes Attachments Order Info Date: 1935 Study Reason: REASON FOR EXAM: EXERCISE RELATED SWEATING, FATIGUE, NAUSEA Patient History: MEDICAL HISTORY: OBESITY, CHRONIC BACK PAIN, FOOT DROP Referring Physician: HENNY LINK MD Age: 83Y Sex: M Study Priority: ROUTINE Phys Primary #: No Report Split View [id number]/PreviousFlow LayoutHide/ShowWindow/LevelSharp EdgeOrientationStudy ActionsViewer Help CR CHEST [REPORTED] 07/19/2016 at 09:18 AM EDT [[id number]] KWADWO PARKS SR [[id number]] 81Y Report Info Name: KWADWO PARKS SR Date: 1935 Description: CHEST 2 VIEWS PA,LAT Procedure Code: RAD-CXRC Radiologist: MCKENNA CARBALLO ID: [id number] Sex: M Acc#: [id number] Study Date: 07/19/2016 09:18 AM EDT Report Date: 07/19/2016 10:50 AM EDT RAD-CXRC^CHEST 2 VIEWS PA,LAT ^NVT MEDICAL HISTORY: OBESITY, CHRONIC BACK PAIN, FOOT DROP Patient Name: KWADWO PARKS SR Unit #: [id number] Loc: DI Ordering Provider: HENNY LINK M.D. Status: REG [facility] Primary Care Provider: HENNY LINK M.D. Date of Exam: 07/19/16 Sex: M : 1935 Age: 81 Exam(s) [id number] RAD:Chest 2 Views PA,Lat SYMPTOM/DIAGNOSIS: EXERCISE RELATED SWEATING, FATIGUE, NAUSEA, R61, DECREASED FUNCTIONAL MOBILITY, Z74.09, CHRONIC BACK PAIN PA AND LATERAL CHEST: There are no prior comparison exams. The heart size is within normal limits. The aorta is mildly tortuous. The lungs are well inflated and clear. No infiltrate or effusion is seen. There are no visible emphysematous or fibrotic changes. No pulmonary nodules or adenopathy is visible. Impression: Negative chest xray. Ordered By: HENNY LINK M.D. CC: Dictated By: EMMANUEL CARBALLO M.D. 07/19/16 1034 1146 Transcribed By: Rosemary Jones 07/19/16 1050 This is privileged, confidential information intended only for the provider named. Any use or distribution by any person other than this provider is strictly prohibited. If you receive this report in error, please notify us immediately at [phone] and return the original report to us at the address above. Thank-you. 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 No fevers, has felt rundown. He has had short-term relief with home nebulizers. No other treatment thus far. Denies chest pain, palpitations, lightheadedness, weight gain, leg swelling. General Date/Time Provider Initiated Documentation: 04/21/19 09:35 . Related Data Home Medications Medication Instructions Recorded Confirmed acetaminophen 1,000 mg PO Q4H PRN tab-cap 07/09/15 04/21/19 Metamucil 1 tbsp PO DAILY 01/04/16 04/21/19 melatonin 3 mg PO HS 03/07/17 04/21/19 latanoprost [Xalatan] 1 drp OU HS #0 btl 03/09/17 04/21/19 polyethylene glycol 3350 17 g PO DAILY #3350 gm 08/13/17 04/21/19 finasteride 5 mg PO DAILY #90 tab 08/14/17 04/21/19 ranitidine HCl 150 mg PO BID PRN #180 tab-cap 08/14/17 04/21/19 diclofenac sodium [Voltaren] 100 gm TOPICAL BID #1 script MDD 09/11/17 04/21/19 twice Linzess 290 mcg PO DAILY 30 Days #90 cap 10/08/17 04/21/19 MDD 1 paroxetine HCl [Paxil] 30 mg PO DAILY #90 tab-cap 01/22/18 04/21/19 Narcan 4 mg NS as directed 1 Days #2 spray 01/23/18 04/21/19 cholecalciferol (vitamin D3) 1,000 units PO DAILY 03/14/18 04/21/19 fentanyl 1 adh.patch TRANSDERMAL Q72H 30 03/26/18 04/21/19 Days #10 adh.patch MDD 1 patch Q72 hours Cyanocobalamin (Vitamin B-12) 1,000 mcg PO DAILY 06/13/18 04/21/19 [Vitamin B-12] Famotidine 20 mg PO PRN PRN 06/13/18 04/21/19 carica papaya 1 ea PO PRN PRN 06/13/18 04/21/19 gabapentin 300 mg PO TID 06/13/18 04/21/19 magnesium 250 mg PO DAILY 06/13/18 04/21/19 mirtazapine 30 mg PO HS 06/13/18 04/21/19 oxycodone 10 mg PO TID 06/13/18 04/21/19 hydrocodone-acetaminophen 1 tab PO Q6H PRN PRN #10 tablet 06/19/18 04/21/19 cyanocobalamin (vitamin B-12) 1,000 mcg PO DAILY 07/13/18 04/21/19 albuterol sulfate 2.5 mg INHALATION Q6H PRN 04/21/19 04/21/19 albuterol sulfate [Ventolin HFA] 2 puff INHALATION Q6H PRN 04/21/19 04/21/19 amitriptyline 10 - 20 mg PO HS 04/21/19 04/21/19 azithromycin 250 mg PO DAILY 5 Days #5 tab 04/21/19 dextromethorphan-guaifenesin 1 tab PO Q6H PRN 04/21/19 04/21/19 dextromethorphan-guaifenesin 1 tab PO BID 04/21/19 04/21/19 [Mucinex DM] losartan-hydrochlorothiazide 1 tab PO DAILY 04/21/19 04/21/19 melatonin 3 mg PO HS 04/21/19 04/21/19 ondansetron HCl 4 mg PO TID PRN 04/21/19 04/21/19 prednisone 40 mg PO DAILY 4 Days #8 tab 04/21/19 tamsulosin 0.4 mg PO HS 04/21/19 04/21/19 Previous Rx's Medication Instructions Recorded latanoprost [Xalatan] 1 drp OU HS #0 btl 03/09/17 polyethylene glycol 3350 17 g PO DAILY #3350 gm 08/13/17 finasteride 5 mg PO DAILY #90 tab 08/14/17 diclofenac sodium [Voltaren] 100 gm TOPICAL BID #1 script MDD 09/11/17 twice Linzess 290 mcg PO DAILY 30 Days #90 cap 10/08/17 MDD 1 paroxetine HCl [Paxil] 30 mg PO DAILY #90 tab-cap 01/22/18 Narcan 4 mg NS as directed 1 Days #2 spray 01/23/18 fentanyl 1 adh.patch TRANSDERMAL Q72H 30 03/26/18 Days #10 adh.patch MDD 1 patch Q72 hours hydrocodone-acetaminophen 1 tab PO Q6H PRN PRN #10 tablet 06/19/18 azithromycin 250 mg PO DAILY 5 Days #5 tab 04/21/19 prednisone 40 mg PO DAILY 4 Days #8 tab 04/21/19 Allergies Allergy/AdvReac Type Severity Reaction Status Date / Time aspirin AdvReac Intermediate GI Bleeding Unverified 07/13/18 11:34 NSAIDS (Non-Steroidal AdvReac Intermediate GI Bleeding Unverified 07/13/18 11:34 Anti-Inflamma General Stated Complaint: SOB DIAZ: 2 Review of Systems Constitutional Denies chills, Denies fatigue, Denies fever(s) and Denies lethargy Eyes Denies loss of vision ENT Denies nasal congestion and Denies sore throat Cardiovascular Denies chest pain Gastrointestinal Denies abdominal pain, Denies nausea and Denies vomiting Musculoskeletal Denies back pain, Denies muscle weakness and Denies numbness Integumentary/Breasts Denies rash Neurologic Denies focal weakness, Denies loss of vision and Denies numbness Endocrine Denies fatigue Hematologic/Lymphatic Denies easy bruising PFSH Social History Smoking/Tobacco Use Status: Never Alcohol Intake: never Drug use: Never Do you feel safe at home: Yes Do you feel safe in your relationship?: Yes Exam Const General: cooperative, healthy appearing and no acute distress HENMT Head: normal to inspection Ears: hearing grossly normal bilaterally Eyes EOM: EOM intact bilaterally Neck Neck: normal visual inspection Resp Effort & Inspection: normal respiratory effort Other: Tachypnea, wheezing diffusely. Cardio Rate: regular rate Rhythm: regular rhythm Heart Sounds: no murmurs GI Palpation: soft and nontender Skin General skin exam: no rashes or lesions noted Neuro General: alert, awake and oriented x3 Speech: speech normal Gait: normal gait Extrem General: normal to inspection Other: Trace pitting edema lower extremities bilaterally Course Vital Signs Temperature 37.1 C 04/21/19 09:37 Pulse 94 H 04/21/19 09:37 Respiratory Rate 10 L 04/21/19 09:37 Blood Pressure 169/73 H 04/21/19 09:37 Pulse Oximetry 97 04/21/19 09:37 Temperature 37.1 C 04/21/19 09:37 Temperature Source Skin 04/21/19 09:37 Pulse 94 H 04/21/19 09:37 Respiratory Rate 10 L 04/21/19 09:37 Blood Pressure 169/73 H 04/21/19 09:37 Pulse Oximetry 97 04/21/19 09:37 Oxygen Delivery Method Aerosol Mask 04/21/19 09:37 Pain Level 0 04/21/19 09:37
[2019-04-21 09:51] LABS: HCO3 (Venous) 28 mmol/L (22-28); O2 Sat (Venous) 69 % (70-80); TCO2 (Venous) 25 mmol/L (22-29); pCO2 (Venous) 44 mm/Hg (34-47); pH (Venous) 7.41 (7.32-7.43); pO2 (Venous) 36 mm/Hg (28-44)
[2019-04-21 09:54] LABS: Abs Immature Grans 0.01 k/cumm (0.0-0.09); Absolute Basophil Count 0.04 k/cumm (0.0-0.2); Absolute Eosinophil Count 0.27 k/cumm (0.0-0.7); Absolute Lymphocyte Count 0.68 k/cumm (1.2-3.4); Absolute Monocyte Count 0.67 k/cumm (0.11-0.7); Absolute Neutrophil Count 7.48 k/cumm (1.2-6.7); Basophils % 0.4; HCT 36.7 % (40.0-50.0); HGB 12.3 g/dL (13.5-17.5); Immature Grans % 0.1; Lactate-non-spesis 1.4 mmol/l (0.6-1.4); Lymphocytes % 7.4; Mean Corp. HGB Concentration 33.5 g/dL (32.0-36.0); Mean Corpuscular Hemoglobin 32.5 pg (27.0-33.0); Mean Corpuscular Volume 97.1 fL (80-95); Mean Platelet Volume 10.2 fL (8.0-11.0); Monocytes % 7.3; Neutrophils % 81.8; Platelet Count 277 x1000/uL (130-400); RBC 3.78 m/cumm (4.50-6.00); RBC Distribution Width 12.8 % (11.8-14.1); White Blood Cell Count 9.15 k/cumm (4.4-10.8)
--- NOTE | 2019-04-21 09:58 | DI.RAD_ITS ---
SYMPTOM/DIAGNOSIS: DYSPNEA, COUGH X 3 DAYS AP AND LATERAL CHEST: Comparison is made with 19 Jul 2016 The heart is mildly enlarged. The aorta is mildly tortuous. There is a density in the right upper lobe which could represent pneumonia however, mass could not be excluded. This is not seen on previous exam. There is no evidence of effusion or pulmonary edema. IMPRESSION: Right upper lobe infiltrate. A follow up exam is recommended following treatment to exclude a mass.
[2019-04-21 10:36] LABS: ALT 24 U/L (12-78); AST 24 U/L (15-37); Alkaline Phosphatase 97 U/L (46-116); Anion Gap 10.9 mmol/L (3-11); BUN 24 mg/dL (7-18); Bilirubin, Total 0.6 mg/dL (0.2-1.0); CO2 26.1 mmol/L (21.0-32.0); CREATININE 1.26 mg/dL (0.70-1.30); Calcium 8.9 mg/dL (8.5-10.1); Chloride 102 mmol/L (98-107); Estimated GFR 54.93 (mL/min/1.73m2); Glucose 133 mg/dL (70-100); NT-proBNP 524 pg/mL; Potassium 4.7 mmol/L (3.5-5.1); Sodium 139 mmol/L (136-145); Total Protein 7.4 g/dL (6.4-8.2)
[2019-04-21 10:41] LABS: Troponin I < 0.05 ng/mL (0.00-0.06)
[2019-04-21] MEDS: Albuterol/Ipratropium 3 ML UPD VIAL UPD ×2 (10:54→14:18)
[2019-04-21] MEDS: methylPREDNISolone SUCC 125 MG VIAL IVP (10:54)
[2019-04-21 11:15] LABS: D-Dimer 2426 ng/mlFEU (<500)
[2019-04-21] MEDS: Omnipaque 350 MG/ML 100 ML BTL IJ (12:01)
[2019-04-21] MEDS: Normal Saline Flush 10 ML SYR IVP (12:02)
--- NOTE | 2019-04-21 12:02 | DI.CT_ITS ---
SYMPTOM/DIAGNOSIS: DYSPNEA, HYPOXIA PE CHEST CT: CT angiography was performed with multi slice acquisition and multi planar and 3D reconstruction. There is no evidence of aortic dissection or pulmonary emboli. The chest xray performed earlier the same day questioned a right upper lobe opacity. The findings represent calcified pleural plaques. No infiltrate or mass is seen. There is respiratory motion and the lungs are suboptimally evaluated. No infiltrate or pleural effusion is seen. Calcified pleural plaques are also noted along the left anterior and posterior chest. The heart size is normal. The visualized portions of the upper abdomen are unremarkable. IMPRESSION: No acute abnormality. No evidence of pulmonary emboli or pulmonary infiltrates.
--- NOTE | 2019-04-21 14:51 | NUR.NOTE ---
Nursing Note: 1430 walked in dept to states he feels he is ready to go home now.
== END 2019-04-21 14:45 | disposition home or self-care (01) ==
PROVIDERS: Emergency Provider Physician Assistant Medical; PCP Family Medicine
DX: J44.1 Chronic obstructive pulmonary disease with (acute) exacerbation (principal)
CPT/HCPCS: 36415; 71275; 80053; 82805; 94640; 96374; 99285; 71046; 83605; 83880; 84484; 85025; 85379; 99284; J2930; J3490; J7620

== ENCOUNTER 2019-05-15 00:20 | Outpatient (CLI) | payer OTHER, SELFPAY ==
--- NOTE | 2019-05-15 13:52 | MERGE_ITS ---
*[facility]* *[facility]* [address] [place] [address] Date of study: 05/15/2019 Transthoracic Echocardiography M-mode, complete 2D, complete spectral Doppler, and color Doppler *STUDY CONCLUSIONS* Summary: 1. Left ventricle: The cavity size was normal. Wall thickness was increased in a pattern of mild LVH. Systolic function was hyperdynamic. The estimated ejection fraction was 65-70%. Diastolic parameters were normal. There was no evidence of elevated ventricular filling pressure by Doppler parameters. 2. Mitral valve: There was mild regurgitation. 3. Right ventricle: The cavity size was normal. Wall thickness was normal. Systolic function was normal. 4. Right atrium: The atrium was mildly dilated. 5. Atrial septum: No defect or patent foramen ovale was identified. 6. Pulmonary arteries: Pulmonary systolic pressure was in the range of 30mm Hg to 40mm Hg. 7. Inferior vena cava: The vessel was normal in size. The respirophasic diameter changes were in the normal range (greater than or equal to 50%), consistent with normal central venous pressure. *PATIENT PRESENTATION* Height: 172.7cm (68in ) S/D Pressure: 160 / 79 Weight: 99.8kg (219.5lb ) BSA: 2.22m^2 Test start time: 01:52 PM. Test stop time: 02:36 PM. PERFORMING Unknown CONSULTING Yvonne Solorio ORDERING Yvonne Solorio REFERRING Yvonne Solorio PERFORMING [facility] LIC[employer]ED [employer]ON[employer]MAN Yolie Jeffrey *PROCEDURE DATA* Procedure information: This study was interpreted by [facility]. Pertinent images and digital data are archived for permanent storage and are available for subsequent review. No prior study was available for comparison. Study status: Routine. Transthoracic echocardiography. M-mode, complete 2D, complete spectral Doppler, and color Doppler. A Transthoracic Echocardiogram was performed. Scanning was performed from the parasternal, apical, subcostal, and suprasternal notch acoustic windows. Images were obtained using an Encentuate 2000 cardiac ultrasound machine. Image quality was good. Study completion: The patient tolerated the procedure well. History: PMH: SOB. *CARDIAC ANATOMY* Left ventricle: The cavity size was normal. Wall thickness was increased in a pattern of mild LVH. Systolic function was hyperdynamic. The estimated ejection fraction was 65-70%. The tissue Doppler parameters were normal. Diastolic parameters were normal. There was no evidence of elevated ventricular filling pressure by Doppler parameters. Aortic valve: Trileaflet. Doppler: There was no stenosis. There was no significant regurgitation. VTI ratio of LVOT to aortic valve: 0.83. Valve area (VTI): 2.6cm^2. Indexed valve area (VTI): 1.2cm^2/m^2. Peak velocity ratio of LVOT to aortic valve: 0.73. Valve area (Vmax): 2.3cm^2. Indexed valve area (Vmax): 1cm^2/m^2. Mean velocity ratio of LVOT to aortic valve: 0.64. Valve area (Vmean): 2cm^2. Indexed valve area (Vmean): 0.9cm^2/m^2. Mean gradient (S): 9.8mm Hg. Peak gradient (S): 17.5mm Hg. Aorta: Aortic root: The aortic root was normal in size. Ascending aorta: The ascending aorta was mildly dilated. Mitral valve: Doppler: There was no evidence for stenosis. There was mild regurgitation. Valve area by pressure half-time: 3.6cm^2. Indexed valve area by pressure half-time: 1.6cm^2/m^2. Peak gradient (D): 3.6mm Hg. Left atrium: The atrium was normal in size. Atrial septum: No defect or patent foramen ovale was identified. Right ventricle: The cavity size was normal. Wall thickness was normal. Systolic function was normal. Pulmonic valve: Doppler: There was no evidence for stenosis. There was mild regurgitation. Peak gradient (S): 7.2mm Hg. Tricuspid valve: Doppler: There was mild regurgitation. Pulmonary artery: Poorly visualized. Pulmonary systolic pressure was in the range of 30mm Hg to 40mm Hg. Right atrium: The atrium was mildly dilated. Pericardium: There was no pericardial effusion. Systemic veins: Inferior vena cava: The vessel was normal in size. The respirophasic diameter changes were in the normal range (greater than or equal to 50%), consistent with normal central venous pressure. Measurements Left ventricle Value Reference LV ID, ED, PLAX 5.0 cm 3.5 - 6.0 LV ID, ES, PLAX 3.6 cm 2.1 - 4.0 LV PW thickness, ED, PLAX 1.2 cm LV end-diastolic volume, 1-p A2C 83 ml LV ejection fraction, 1-p A2C 64 % LV end-diastolic volume, 1-p A4C 87 ml LV ejection fraction, 1-p A4C 64 % LV e', lateral 0.121 m/sec LV E/e', lateral 8 LV e', medial 0.092 m/sec LV E/e', medial 10 LV e', average 0.106 m/sec LV E/e', average 9 Ventricular septum Value Reference IVS thickness, ED, PLAX 1.2 cm LVOT Value Reference LVOT ID, A-P 2.0 cm LVOT area 3.1 cm^2 LVOT peak velocity, S 1.53 m/sec LVOT mean velocity, S 0.96 m/sec LVOT VTI, S 32.2 cm LVOT peak gradient, S 9.3 mm Hg LVOT mean gradient, S 4.5 mm Hg Stroke volume (SV), LVOT DP 101 ml Stroke index (SV/bsa), LVOT DP 45 ml/m^2 Aortic valve Value Reference Aortic valve peak velocity, S 2.1 m/sec Aortic valve mean velocity, S 1.5 m/sec Aortic valve VTI, S 39.0 cm Aortic mean gradient, S 9.8 mm Hg Aortic peak gradient, S 17.5 mm Hg VTI ratio, LVOT/AV 0.83 Aortic valve area, VTI 2.6 cm^2 Velocity ratio, peak, LVOT/AV 0.73 Aortic valve area, peak velocity 2.3 cm^2 Velocity ratio, mean, LVOT/AV 0.64 Aortic valve area, mean velocity 2 cm^2 Aortic valve area/bsa, mean velocity 0.9 cm^2/m^2 Aorta Value Reference Aortic root ID, ED 3.6 cm Ascending aorta ID, A-P, S 3.9 cm Left atrium Value Reference LA ID, A-P, ES 4.4 cm LA ID/bsa, A-P 2.0 cm/m^2 <=2.2 LA volume, ES, 2-p 67 ml LA volume/bsa, ES, 2-p 30 ml/m^2 LA/aortic root ratio 1.22 Mitral valve Value Reference Mitral E-wave peak velocity 0.95 m/sec Mitral A-wave peak velocity 0.98 m/sec Mitral deceleration time 213 ms 150 - 230 Mitral pressure half-time 62 ms Mitral peak gradient, D 3.6 mm Hg Mitral E/A ratio, peak 0.97 Mitral valve area, PHT, DP 3.6 cm^2 Tricuspid valve Value Reference Tricuspid regurg peak velocity 2.8 m/sec Tricuspid peak RV-RA gradient 31.6 mm Hg Right atrium Value Reference RA area, ES, A4C (H) 19.7 cm^2 8.3 - 19.5 Pulmonic valve Value Reference Pulmonic peak gradient, S 7.2 mm Hg Legend: (L) and (H) lester values outside specified reference range. I have personally reviewed the images and have reviewed and edited the reported findings. Electronically signed by Andre Arceo MD 05/15/2019 16:31
== END 2019-05-15 00:40 ==
PROVIDERS: PCP Family Medicine; Visit Provider Family Medicine
DX: R06.02 Shortness of breath (principal); I34.0 Nonrheumatic mitral (valve) insufficiency; I10 Essential (primary) hypertension
CPT/HCPCS: 93306

== ENCOUNTER 2019-05-22 09:46 | Outpatient (CLI) | payer OTHER, SELFPAY | END 2019-05-22 10:06 | PROVIDERS: PCP Family Medicine; Visit Provider Internal Medicine Cardiovascular Disease | DX: R06.02 Shortness of breath; I10 Essential (primary) hypertension; J44.9 Chronic obstructive pulmonary disease, unspecified; Z96.643 Presence of artificial hip joint, bilateral | CPT/HCPCS: 99204; 99214 ==

== ENCOUNTER 2019-05-26 00:16 | Outpatient (CLI) | payer OTHER, MEDICAID, SELFPAY ==
--- NOTE | 2019-05-26 07:36 | MERGEMPI_ITS ---
*[facility]* *[facility]* [address] [place] [address] Myocardial Perfusion Imaging - SPECT Regadenoson Date of study: 05/26/2019 *PATIENT PRESENTATION* Height: 175.3cm (69in) Blood Pressure: Weight: 100kg (220lb) BSA: 2.24m^2 Referring physician: Andre Arceo MD Ordering physician: Marita Ventura Impressions: - Normal perfusion by Tc99m Sestamibi Imaging. - Abnormal contraction consistent with cardiomyopathy. Summary: 1. Myocardial perfusion imaging: No myocardial perfusion defects noted. 2. The calculated left ventricular ejection fraction after stress: 46%. There is dyskinesis involving the basal inferior wall(s) of the left ventricle. Indication: R06.02. History: REASON FOR VISIT: TO RULE OUT ISCHEMIC ETIOLOGY FOR HIS INCREASING SHORTNESS OF BREATH ON EXERTION OVER THE LAST YEAR. PT DENIES ANY SYMPTOMS OF CHEST PAIN/PRESSURE. PMH: COPD. Risk factors: Family history of coronary artery disease. Hypertension. Obesity. Cholesterol: 199mg/dl. HDL: 53mg/dl. LDL: 131mg/dl. Triglycerides: 162mg/dl. ALLERGIES: ASPIRIN. NSAIDS. MEDICATIONS: TAMSULOSIN 0.4 MG Q HS. PARAXETINE HCL 30 MG DAILY. OXYCODONE 10 MG TID. MIRTAZAPINE 30 MG Q HS. MELATONIN 3 MG Q HS. MAGNESIUM 250 MG DAILY. LOSARTAN-HYDROCHLOROTHIAZIDE 1 TAB DAILY. LINACLOTIDE 290 MCG CAP DAILY PRN. LATANOPROST 1 DROP OU HS. GABAPENTIN 300 MG TID. FINASTERIDE 5 MG DAILY. FENTANYL 1 PATCH Q 72 HRS. MUCINEX 1 TAB BID. CYANOCOBALAMIN 1,000 MCG DAILY. CHOLECALCIFEROL 1,000 UNITS DAILY. AMITRIPTYLINE 10-20 MG Q HS. ALBUTEROL SULFATE 2 PUFFS Q6 HRS PRN. Imaging Technique: Protocol: Regadenoson. Acquisition: Gated SPECT; 1 day - rest/stress. The patient was imaged in the supine position. Attenuation correction used. Isotope administration: - Rest. Tc[99m]-sestamibi. Dose: 12.4mCi. Injection time: 08:45 AM. Injection to stress time: 00:45. - Stress. Tc[99m]-sestamibi. Dose: 37.5mCi. Injection time: 10:48 AM. 1-2 min before end of exercise Baseline ECG: SINUS RHYTHM. HR 71 BPM. Stress protocol: +--------+--+ + + !Stage !HR!BP (mmHg) !Comments ! +--------+--+ + + !Baseline!71!158/74 (102)! ! +--------+--+ + + !1 min !81!148/80 (103)!Inject Regadenoson.! +--------+--+ + + !3 min !86!150/82 (105)! ! +--------+--+ + + !6 min !87!160/76 (104)! ! +--------+--+ + + * Stress results: The rate-pressure product for the peak heart rate and blood pressure was 35441pb Hg/min. Stress ECG: STRESS TEST ENDED IN 6 MINUTES & 8 SECONDS. PT EXPERIENCED NO SIGNIFICANT SIDE EFFECTS FROM LEXISCAN INJECTION. NORMAL HEART RATE AND BLOOD PRESSURE RESPONSE TO EXERCISE. OCCASIONAL PVCs. NO ANGINA NO SIGNIFICANT ST SEGMENT CHANGES Myocardial perfusion: Imaging information: gated. No myocardial perfusion defects noted. Ventricular Function (Wall Motion): The calculated left ventricular ejection fraction after stress: 46%. There is dyskinesis involving the basal inferior wall(s) of the left ventricle. Study data: Andre Arceo MD supervised and was readily available during the procedure. This study was interpreted by [facility]. Study status: Routine. Consent: The risks, benefits, and alternatives to the procedure were explained to the patient and informed consent was obtained. Procedure: Initial setup. A baseline ECG was recorded. Surface ECG leads and manual cuff blood pressure measurements were monitored. Heart sounds: Normal. Lung sounds: Normal. Regadenoson stress test. Stress testing was performed, with regadenoson by intravenous bolus, for a total dose of 0.4mgover 10.00sec, followed by a 5ml saline flush. The infusion was terminated due to per protocol. Study completion: All catheters inserted during the procedure were removed. The patient tolerated the procedure well and was discharged from the lab. Discharge: The patient left the laboratory in stable condition. Birthdate: Patient birthdate: 1935. Sex: Gender: male. Study date: Study date: 05/26/2019. Study time: 00:01 AM. Electronically signed by Andre Arceo MD 05/26/2019 14:50
[2019-05-26] MEDS: Regadenoson 0.4 MG/5 ML SYR IVP (11:11)
== END 2019-05-26 00:36 ==
PROVIDERS: PCP Family Medicine; Visit Provider Internal Medicine Cardiovascular Disease
DX: R06.02 Shortness of breath (principal); I42.9 Cardiomyopathy, unspecified; I10 Essential (primary) hypertension; J44.9 Chronic obstructive pulmonary disease, unspecified; Z82.49 Family history of ischemic heart disease and other diseases of the circulatory system
CPT/HCPCS: 78452; 93016; 93018; 93017; J2785

== ENCOUNTER 2020-11-29 15:45 | Outpatient (REF) | payer OTHER, SELFPAY ==
[2020-11-29 13:43] LABS: HCT 38.6 % (40.0-50.0); HGB 12.7 g/dL (13.5-17.5); MCH 31.5 pg (27.0-33.0); MCHC 32.9 % (32.0-36.0); MCV 95.8 fL (80-95); MPV 10.5 fL (8.0-11.0); Platelet Count 270 10^3/uL (130-400); RBC 4.03 10^6/uL (4.36-5.78); RDW 12.7 % (11.8-14.1); RDW-SD 45.2 fL; WBC 6.55 10^3/uL (4.4-10.8)
[2020-11-29 14:06] LABS: ALT 27 U/L (16-63); AST 21 U/L (15-37); Albumin 3.9 g/dL (3.4-5.0); Alkaline Phosphatase 105 U/L (46-116); Anion Gap 5.3 mmol/L (3-11); Bilirubin, Total 0.6 mg/dL (0.2-1.0); CO2 31.7 mmol/L (21.0-32.0); Calcium 9.4 mg/dL (8.5-10.1); Calculated LDL 97 mg/dL (<100); Chloride 102 mmol/L (98-107); Cholesterol 180 mg/dL (<200); Glucose 95 mg/dL (74-106); HDL Cholesterol 73 mg/dL (40-60); Potassium 4.3 mmol/L (3.5-5.1); Sodium 139 mmol/L (136-145); Total Protein 6.9 g/dL (6.4-8.2); Triglyceride 54 mg/dL (<150)
[2020-11-29 14:39] LABS: BUN 29 mg/dL (7-18)
== END 2020-11-29 16:05 ==
LOC: NCHCN 15:45
PROVIDERS: PCP Family Medicine; Visit Provider Family Medicine
DX: I10 Essential (primary) hypertension (principal); E66.9 Obesity, unspecified
CPT/HCPCS: 80053; 80061; 85027

== ENCOUNTER 2021-02-24 05:34 | Emergency (ER) | payer OTHER, SELFPAY ==
[2021-02-24] VITALS (33 sets, daily range): BP systolic 133–152; BP diastolic 60–82; PULSE 77–98; RESP 12–24; TEMP 36.3; O2SAT 91–97
--- NOTE | 2021-02-24 05:45 | DI.CT_ITS ---
EXAM: CT ABDOMEN PELVIS CTA CLINICAL HISTORY: abdomen pain ?mesenteric ischemia. TECHNIQUE: Imaging Protocol: Axial computed tomography images with coronal and sagittal reformatted images were created and reviewed CONTRAST MATERIAL: Intravenous: Omnipaque 350 Contrast volume:100 ml Oral: None COMPARISON: CT CT CHEST PE CTA from 04/21/2019 FINDINGS: VISUALIZED LUNG BASES: Mild infiltrate posterior basal segment right lower lobe. Small calcified gra nuloma left lung base. Calcified pleural plaques in both lung bases noted. No pleural effusions. ABDOMEN: On this CTA study the abdominal aorta is patent without significant aneurysm as are the aortoiliac se gments. There are no aneurysms and no significant not lesions in the aorta and iliac arteries.. The common femoral arteries are also patent as are the visualized origin of both SFA arteries celiac art declan is patent. There is mild disease at the origin of the superior mesenteric artery but no tight st enosis at this level. The inferior mesenteric artery is patent. Calcified plaque is noted at the or igin of the right renal artery. There are 2 left renal arteries, with mild plaque at the level the p roximal upper dominant left renal artery but no tight stenosis in either vessel. Both kidneys exhibi t normal size. There is no ascites. LIVER: There are no focal hepatic lesions nor dilatation of intrahepatic ducts. GALLBLADDER/BILIARY: No obvious gallbladder pathology. CBD is not dilated. PANCREAS: No evidence of pancreatic mass nor dilatation of the pancreatic duct. SPLEEN: Spleen is not enlarged. There are no intrasplenic lesions. Splenic and portal veins are kaiser nt. ADRENALS: There are no significant adrenal masses. KIDNEYS: Tiny cortical cyst left kidney noted. Also tiny cortical cysts right kidney. No calculi no r hydronephrosis. No solid renal masses. ABDOMINAL AORTA: The abdominal aorta is not enlarged. LYMPH NODES: There is no retroperitoneal nor para-aortic adenopathy. No obvious mesenteric masses. ABDOMINAL WALL/GI: No evidence of significant anterior abdominal wall hernia. There is no bowel obst ruction. No ischemic appearing bowel loops evident. PELVIS: LYMPH NODES: There is no intrapelvic nor inguinal adenopathy. GI: No evidence of appendicitis.No evidence of sigmoid diverticulitis. URINARY BLADDER: Partially obscured by beam hardening artifact from bilateral hip prostheses. REPRODUCTIVE: Partially obscured by beam hardening artifact from bilateral hip prostheses. OSSEOUS: No significant osseous lesions. Evidence of previous lumbar laminectomy surgery. 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 IMPRESSION: 1. No evidence of aortic aneurysm. No evidence of significant stenosis in the aorta and iliac arteri es. Also no evidence of significant stenosis in the main branch vessels as described above. There a re no ischemic appearing bowel loops. Is no ascites. 2. Small benign cysts are noted in both kidneys. No solid renal masses. No calculi nor hydronephros is. 3. Bilateral hip prostheses and evidence of multilevel laminectomies in the lumbosacral spine. 4. RADIATION DOSE DELIVERED: 1,597.5mGy.cm Total DLP DATA REPOSITORY: All CT scans at this facility are submitted to the National Radiology Data Registry (NRDR) Dose Index Registry (DIR) with the [employer] (ACR). RADIATION OPTIMIZATION: All CT scans at this facility use at least one of these dose optimization te chniques: automated exposure control; mA and/or kV adjustment per patient size (includes targeted exa ms where dose is matched to clinical indication); or iterative reconstruction.
--- NOTE | 2021-02-24 05:55 | ED.GENADUL_ITS ---
Discharge Plan Disposition Patient Disposition: HOME Condition: Improving Discharge Details Clinical Impression: UTI (urinary tract infection), Abdominal pain Primary Care Provider: Yvonne Solorio ED Provider: Brenda Jackson Home Meds and New Rx's Prescriptions: New levofloxacin 750 mg tablet 750 mg PO DAILY 4 Days Qty: 4 RF: 0 Continued Linzess 290 mcg capsule 290 mcg PO DAILY PRNRF: 0 polyethylene glycol 3350 17 gram powder in packet 17 g PO DAILY PRNRF: 0 acetaminophen 500 MG tablet 1,000 mg PO Q4H PRN RF: 0 melatonin 3 MG tablet 3 mg PO HS RF: 0 finasteride 5 MG tablet 5 mg PO DAILY Qty: 90 RF: 3 diclofenac sodium [Voltaren] 100 GM gel 100 gm Topical BID MDD twice Qty: 1 RF: 2 Narcan 4 MG spray,non-aerosol 4 mg NS as directed 1 Days Qty: 2 RF: 0 fentanyl 1 EACH patch 72 hour 1 adh.patch Transdermal Q72H MDD 1 patch Q72 hours 30 Days Qty: 10 RF: 0 mirtazapine 30 MG tablet 30 mg PO HS RF: 0 magnesium 250 MG tablet 250 mg PO DAILY RF: 0 oxycodone 10 MG tablet 10 mg PO QID RF: 0 cyanocobalamin (vitamin B-12) 1,000 mcg Tablet 1,000 mcg PO DAILY RF: 0 tamsulosin 0.4 mg Capsule 0.4 mg PO HS RF: 0 losartan-hydrochlorothiazide 100-25 mg Tablet 1 tab PO DAILY RF: 0 albuterol sulfate [Ventolin HFA] 90 mcg/actuation Hfa Aerosol Inhaler 2 puff Inhalation Q6H PRNRF: 0 albuterol sulfate 2.5 mg /3 mL (0.083 %) Solution For Nebulization 2.5 mg Inhalation Q6H PRNRF: 0 latanoprost [Xalatan] 2.5 ML drops 1 drp OU HS Qty: 0 RF: 0 cholecalciferol (vitamin D3) 1,000 UNITS tablet 1,000 units PO DAILY RF: 0 ipratropium-albuterol 0.5 mg-3 mg(2.5 mg base)/3 mL solution for nebulization 3 ml INHALATION DIRECTED RF: 0 buspirone 30 mg tablet 30 mg PO DAILY RF: 0 Trelegy Ellipta 100-62.5-25 mcg blister with device 1 inh INHALATION QAM RF: 0 No Action gabapentin 600 mg tablet 600 mg PO TID RF: 0 famotidine 40 mg tablet 40 mg PO DAILY RF: 0 Discharge Instructions Instructions: Urinary Tract Infection in Men (ED), Abdominal Pain (ED) Additional Instructions: Drink plenty of fluids and get plenty of rest. Take Tylenol as needed and directed for pain. Your prescription has been sent electronically to your pharmacy. Call the pharmacy to make sure your prescription is ready before pickup. Take the prescription as directed. Call your primary care doctor's office today to schedule a follow-up appointment for reevaluation within the next week. Return immediately to the emergency department if you develop any worsening or new concerning symptoms. Discharge Data Discharge Date/Time-TO BE ENTERED AT DEPARTURE: 02/24/21 10:07 Discharge Physician: Brenda Jackson Medical Decision Making <Andre Post MD - Last Filed: 02/24/21 06:02> 85 yo male with hx of hypertension who denies prior abdominal surgeries comes in with chief complaint of abdomen pain since Sunday and has never had pain like this in the past. Denies nausea or vomit and no urinary or bowel changes or symptoms. He denies chest pain or pressure, no dyspnea, no fevers. He has tenderness on exam in the mid abdomen aroud the umbilicus and left lower abdomen, no upper abdomen tenderness. He was recently treated for a right lower leg cellulitis with cephalexin per his and his right leg is now much improved per patient, no longer swollen and has no pain and has no significant erythema or warmth on exam. His abdomen pain could be from diverticulitis, sbo and possibly mesenteric ischemia though no pain out of proportion to exam. Will obtain labs and ct imaging and reassess. Differential Diagnosis Differential Diagnosis: mesenteric ischemia, diverticulitis, appendicitis, sbo Medical Records Medical records reviewed: Yes I reviewed the patient's medical records. Lab Data Lab results reviewed: Yes I reviewed the patient's lab results. <Brenad Jackson DO - Last Filed: 02/25/21 12:38> 0730 --please see Dr. Post's note for initial presentation, exam and plan. 85-year-old male with 4 days of lower abdominal pain. He states pain was improved with morphine here but is now returning. Also admits to fatigue and decreased appetite but denies any vomiting, diarrhea or urinary symptoms. Labs and imaging reviewed. Normal white blood cell count. Normal electrolytes. Lactate negative. Lipase negative. Urinalysis consistent with UTI. CT reviewed and negative for acute findings. We will give a 500 bolus of IV fluids, IV Tylenol for returning pain. Patient states he feels good to go home. Patient's right leg does appear minimally erythematous but he denies any pain and there is no edema. states patient was treated for cellulitis with Keflex but states he did not tolerate this from a GI perspective. Will treat the UTI with Levaquin and send a prescription electronically to the pharmacy rather than Rocephin and Keflex due to his recent adverse reaction. Advised to call the primary care doctor today for a follow-up appointment within the next week. Usual and customary return precautions given prior to discharge. Medical Records Medical records reviewed: Yes I reviewed the patient's medical records. Imaging Data Radiologic Study: Radiologist's impression: CTA Abdomen and Pelvis With Contrast Exam date and time: 02/24/2021 6:42 AM Age: 85 years old Clinical indication: Abdominal pain; Generalized; Patient HX: Abdomen pain. ? Mesenteric ischemia TECHNIQUE: Imaging protocol: Computed tomographic angiography of the abdomen and pelvis with contrast material. 3D rendering (Not supervised by radiologist): MIP and/or 3D reconstructed images were created by the technologist. Radiation optimization: All CT scans at this facility use at least one of these dose optimization techniques: automated exposure control; mA and/or kV adjustment per patient size (includes targeted exams where dose is matched to clinical indication); or iterative reconstruction. Contrast material: [id number]; Contrast volume: 100 ml; Contrast route: INTRAVENOUS (IV); COMPARISON: CT Private^ROUTINE ABDOMEN PELVIS WITH CONTRAST (Adult) 07/13/2018 12:37 PM FINDINGS: Aorta: No aortic aneurysm. No aortic dissection. Celiac trunk and mesenteric arteries: No occlusion or significant stenosis. Renal arteries: No occlusion or significant stenosis. Right iliac arteries: No occlusion or significant stenosis. Left iliac arteries: No occlusion or significant stenosis. Liver: No mass. Gallbladder and bile ducts: Unremarkable. No calcified stones. No ductal dilation. Pancreas: Unremarkable. No mass. No ductal dilation. Spleen: Unremarkable. No splenomegaly. Adrenal glands: Unremarkable. No mass. Kidneys and ureters: Unremarkable. No solid mass. No hydronephrosis. Stomach and bowel: Colonic diverticulosis Appendix: No evidence of appendicitis. Intraperitoneal space: Unremarkable. No free air. No significant fluid collection. Lymph nodes: Unremarkable. No enlarged lymph nodes. Urinary bladder: Unremarkable. No mass. Reproductive: Unremarkable as visualized. Bones/joints: Multilevel degenerative changes of the lumbar spine. Bilateral hip arthroplasties. Soft tissues: Unremarkable. IMPRESSION: Patent mesenteric vessels. No evidence of mesenteric ischemia. Lab Data Lab results reviewed: Yes I reviewed the patient's lab results. Labs: 02/24/21 07:20 Urine - Reflex from Ua Urine Culture - Preliminary Pseudomonas aeruginosa Laboratory Tests Range/Units 02/24/21 02/24/21 02/24/21 05:50 05:50 05:50 WBC (4.4-10.8) 10^3/uL 9.42 RBC (4.36-5.78) 10^6/uL 4.16 L Hgb (13.5-17.5) g/dL 13.2 L Hct (40.0-50.0) % 39.5 L MCV (80-95) fL 95.0 MCH (27.0-33.0) pg 31.7 MCHC (32.0-36.0) % 33.4 RDW (11.8-14.1) % 12.3 Plt Count (130-400) 10^3/uL 351 MPV (8.0-11.0) fL 9.8 Immature Gran % 0.2 Neutrophils % 71.4 Lymphocytes % 16.5 Monocytes % 7.9 Eosinophils % 3.5 Basophils % 0.5 Nucleated RBC % % 0 Absolute Neutrophils (1.2-6.7) 10^3/uL 6.73 H Absolute Lymphocytes (1.2-3.4) 10^3/uL 1.55 Absolute Monocytes (0.1-0.8) 10^3/uL 0.74 Absolute Eosinophils (0.0-0.7) 10^3/uL 0.33 Absolute Basophils (0.0-0.2) 10^3/uL 0.05 PT (9.3-11.0) sec INR (0.9-1.1) APTT (21.0-27.5) sec VBG Lactate (0.6-1.4) mmol/L 1.0 Sodium (136-145) mmol/L 137 Potassium (3.5-5.1) mmol/L 4.2 Chloride (98-107) mmol/L 100 Carbon Dioxide (21.0-32.0) mmol/L 28.8 Anion Gap (3-11) mmol/L 8.2 BUN (7-18) mg/dL 18 Creatinine (0.70-1.30) mg/dL 1.0 Estimated GFR/1.73 m2 (mL/min/1.73m2) >= 60.00 Glucose (74-106) mg/dL 112 H Calcium (8.5-10.1) mg/dL 9.5 Magnesium (1.8-2.4) mg/dL 1.9 Total Bilirubin (0.2-1.0) mg/dL 0.6 Conjugated Bilirubin (0.0-0.2) mg/dL 0.2 AST (15-37) U/L 23 ALT (16-63) U/L 23 Alkaline Phosphatase (46-116) U/L 123 H Total Protein (6.4-8.2) g/dL 7.6 Albumin (3.4-5.0) g/dL 3.7 Lipase (73-393) U/L 57 Urine Color (Yellow) Urine Clarity (Clear) Urine pH (5-8) Ur Specific [place] (1.005-1.025) Urine Protein (Negative) mg/dL Urine Ketones (Negative) mg/dL Urine Blood (Negative) Urine Nitrite (Negative) Urine Bilirubin (Negative) Urine Urobilinogen (Up TO 0.2) EU/dL Ur Leukocyte Esterase (Negative) Urine RBC (0-2) HPF Urine WBC (0-5) HPF Ur Epithelial Cells (Negative) HPF Urine Crystals (Negative) HPF Urine Bacteria (Negative) HPF Urine Casts (Negative) LPF Urine Mucus (Negative) Ur Culture Indicated? Urine Glucose (Negative) mg/dL Range/Units 02/24/21 02/24/21 05:50 07:20 WBC (4.4-10.8) 10^3/uL RBC (4.36-5.78) 10^6/uL Hgb (13.5-17.5) g/dL Hct (40.0-50.0) % MCV (80-95) fL MCH (27.0-33.0) pg MCHC (32.0-36.0) % RDW (11.8-14.1) % Plt Count (130-400) 10^3/uL MPV (8.0-11.0) fL Immature Gran % Neutrophils % Lymphocytes % Monocytes % Eosinophils % Basophils % Nucleated RBC % % Absolute Neutrophils (1.2-6.7) 10^3/uL Absolute Lymphocytes (1.2-3.4) 10^3/uL Absolute Monocytes (0.1-0.8) 10^3/uL Absolute Eosinophils (0.0-0.7) 10^3/uL Absolute Basophils (0.0-0.2) 10^3/uL PT (9.3-11.0) sec 10.3 INR (0.9-1.1) 1.0 APTT (21.0-27.5) sec 25.7 VBG Lactate (0.6-1.4) mmol/L Sodium (136-145) mmol/L Potassium (3.5-5.1) mmol/L Chloride (98-107) mmol/L Carbon Dioxide (21.0-32.0) mmol/L Anion Gap (3-11) mmol/L BUN (7-18) mg/dL Creatinine (0.70-1.30) mg/dL Estimated GFR/1.73 m2 (mL/min/1.73m2) Glucose (74-106) mg/dL Calcium (8.5-10.1) mg/dL Magnesium (1.8-2.4) mg/dL Total Bilirubin (0.2-1.0) mg/dL Conjugated Bilirubin (0.0-0.2) mg/dL AST (15-37) U/L ALT (16-63) U/L Alkaline Phosphatase (46-116) U/L Total Protein (6.4-8.2) g/dL Albumin (3.4-5.0) g/dL Lipase (73-393) U/L Urine Color (Yellow) Yellow Urine Clarity (Clear) Sl cloudy Urine pH (5-8) 7.0 Ur Specific [place] (1.005-1.025) 1.015 Urine Protein (Negative) mg/dL Negative Urine Ketones (Negative) mg/dL 15 H Urine Blood (Negative) Trace-lysed H Urine Nitrite (Negative) Positive H Urine Bilirubin (Negative) Negative Urine Urobilinogen (Up TO 0.2) EU/dL 0.2 Ur Leukocyte Esterase (Negative) Small H Urine RBC (0-2) HPF 3-5 H Urine WBC (0-5) HPF 10-20 H Ur Epithelial Cells (Negative) HPF Rare Urine Crystals (Negative) HPF Negative Urine Bacteria (Negative) HPF Few Urine Casts (Negative) LPF Negative Urine Mucus (Negative) Trace Ur Culture Indicated? Yes Urine Glucose (Negative) mg/dL Negative HPI <Andre Post MD - Last Filed: 02/24/21 06:02> General Mode of arrival: wheelchair . Date/Time Provider Initiated Documentation: 02/24/21 05:35 . Limitations to Documentation: no limitations . Information obtained by: patient . History of Present Illness 85 year old M presents to the emergency department with the chief complaint of abdomen pain, described as moderate, and is localized to the abdomen. Patient reports no radiation. Patient started experiencing this day(s) (3) and it has been constant. No relieving factors improve symptom(s), No exacerbating factors reported . Patient notes no other symptoms.. Patient did receive the following treatments prior to arrival, none Related Data Home Medications Medication Instructions Recorded Confirmed acetaminophen 1,000 mg PO Q4H PRN tab-cap 07/09/15 02/24/21 melatonin 3 mg PO HS 03/07/17 02/24/21 latanoprost [Xalatan] 1 drp OU HS #0 btl 03/09/17 02/24/21 finasteride 5 mg PO DAILY #90 tab 08/14/17 02/25/21 diclofenac sodium [Voltaren] 100 gm TOPICAL BID #1 script MDD 09/11/17 02/24/21 twice Narcan 4 mg NS as directed 1 Days #2 spray 01/23/18 02/24/21 cholecalciferol (vitamin D3) 1,000 units PO DAILY 03/14/18 02/24/21 fentanyl 1 adh.patch TRANSDERMAL Q72H 30 03/26/18 02/24/21 Days #10 adh.patch MDD 1 patch Q72 hours magnesium 250 mg PO DAILY 06/13/18 02/24/21 mirtazapine 30 mg PO HS 06/13/18 02/24/21 oxycodone 10 mg PO QID 06/13/18 02/25/21 cyanocobalamin (vitamin B-12) 1,000 mcg PO DAILY 07/13/18 02/24/21 albuterol sulfate 2.5 mg INHALATION Q6H PRN 04/21/19 02/24/21 albuterol sulfate [Ventolin HFA] 2 puff INHALATION Q6H PRN 04/21/19 02/24/21 losartan-hydrochlorothiazide 1 tab PO DAILY 04/21/19 02/24/21 tamsulosin 0.4 mg PO HS 04/21/19 02/24/21 linaclotide 290 mcg capsule 290 mcg PO DAILY PRN cap 05/22/19 02/24/21 polyethylene glycol 3350 17 gram 17 g PO DAILY PRN gm 05/22/19 02/24/21 oral powder packet Trelegy Ellipta 1 inh INHALATION QAM 02/24/21 02/24/21 buspirone 30 mg PO DAILY 02/24/21 02/24/21 ipratropium-albuterol 3 ml INHALATION DIRECTED 02/24/21 02/24/21 levofloxacin 750 mg PO DAILY 4 Days #4 tab 02/24/21 02/24/21 famotidine 40 mg PO DAILY 02/25/21 02/25/21 gabapentin 600 mg PO TID 02/25/21 02/25/21 Previous Rx's Medication Instructions Recorded latanoprost [Xalatan] 1 drp OU HS #0 btl 03/09/17 finasteride 5 mg PO DAILY #90 tab 08/14/17 diclofenac sodium [Voltaren] 100 gm TOPICAL BID #1 script MDD 09/11/17 twice Narcan 4 mg NS as directed 1 Days #2 spray 01/23/18 fentanyl 1 adh.patch TRANSDERMAL Q72H 30 03/26/18 Days #10 adh.patch MDD 1 patch Q72 hours levofloxacin 750 mg PO DAILY 4 Days #4 tab 02/24/21 Allergies Allergy/AdvReac Type Severity Reaction Status Date / Time aspirin AdvReac Intermediate GI Bleeding Unverified 02/24/21 16:39 NSAIDS (Non-Steroidal AdvReac Intermediate GI Bleeding Unverified 02/24/21 16:39 Anti-Inflamma General Stated Complaint: Abd Prob DIAZ: 3 Review of Systems <Andre Post MD - Last Filed: 02/24/21 06:02> All systems reviewed & are unremarkable except as noted in HPI and below Constitutional Constitutional: Denies chills, Denies fever(s) and Denies weakness Cardiovascular Cardiovascular: Denies chest pain and Denies dyspnea Respiratory Respiratory: Denies cough and Denies dyspnea Gastrointestinal Gastrointestinal: Denies nausea and Denies vomiting Genitourinary Genitourinary: Denies dysuria Musculoskeletal Musculoskeletal: Denies joint swelling Integumentary/Breasts Skin/Breast: Denies rash Neurologic Neurologic: Denies weakness [facility] <Andre Post MD - Last Filed: 02/24/21 06:02> Medical History (Updated 02/25/21 @ 08:20 by Brneda Jackson DO) Diabetes mellitus Diverticula of colon GERD (gastroesophageal reflux disease) GI bleed Hemorrhoid Hypertension Neuropathy Obesity Osteoarthritis Spinal stenosis Surgical History (Updated 02/24/21 @ 21:27 by Jerad Gómez MD) Endoscopic Carpal Tunnel release (05/04/15) Right by Dr. Ayala Extraction of cataract (02/15/16) [place] R with IOL; and L as well, Dr. Dickinson in [place] Repair of inguinal hernia (08/31/11) Right sided with orchiectomy Rotator Cuff Repair (~1996) Right spinal stenosis (08/15/01) L foot drop result; L4 laminectomy and L4-5 R discectomy, Dr Campbell; [place] approx 02/2017 L1-L2 Laminectomy Dr. Cortes [facility] spinal stenosis (~2005) L foot drop result; L4 laminectomy and L4-5 R discectomy, Dr Campbell; second procedure [place] approx 02/2017 L1-L2 Laminectomy Dr. 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 Diabetes age 50 Essential hypertension Stroke Uterine cancer Father , Colon CA at age 87. Colon cancer Sister Breast cancer Sister Ovarian cancer Sister Ovarian cancer Sister No problems noted. Sister No problems noted. Sister No problems noted. Sister No problems noted. Sister No problems noted. Brother Diabetes Brother No problems noted. Brother No problems noted. Social History Smoking/Tobacco Use Status: Never Smoking risk assessment performed?: Yes Alcohol Intake: never Drug use: Never Substance use type: does not use Do you feel safe at home: Yes Do you feel safe in your relationship?: Yes Exam <Andre Post MD - Last Filed: 02/24/21 06:02> Const General: no acute distress Orientation: alert HENMT Head: normal to inspection Ears: external ears normal General nose exam: external nose normal Mouth: moist mucous membranes Eyes General: appearance normal, both eyes and all related structures Neck Neck: normal visual inspection Resp Effort & Inspection: normal respiratory effort and able to speak in complete sentences Cardio Rate: regular rate GI Palpation: soft and tender Skin General skin exam: no rashes or lesions noted Neuro General: patient alert and patient oriented x3 Extrem General: normal to inspection Psych Mental Status: mental status grossly normal Course <Andre Post MD - Last Filed: 02/24/21 06:02> Vital Signs Vital signs: Vital Signs Temperature 36.3 C L 02/24/21 05:42 Pulse 89 02/24/21 05:42 Respiratory Rate 18 02/24/21 05:42 Blood Pressure 152/82 H 02/24/21 05:42 Pulse Oximetry 95 02/24/21 05:42 Temperature 36.3 C L 02/24/21 05:42 Temperature Source Skin 02/24/21 05:42 Pulse 89 02/24/21 05:42 Respiratory Rate 18 02/24/21 05:42 Blood Pressure 152/82 H 02/24/21 05:42 Pulse Oximetry 95 02/24/21 05:42 Pain Level 10 02/24/21 05:42 Sign Out <Andre Post MD - Last Filed: 02/24/21 06:02> Sign Out Data: Sign Out Comment: abdomen pain, pending CT Last updated by Andre Post MD at 02/24/21 06:26
[2021-02-24 05:58] LABS: Abs Immature Grans 0.02 10^3/uL (0.0-0.06); Absolute Basophil Count 0.05 10^3/uL (0.0-0.2); Absolute Eosinophil Count 0.33 10^3/uL (0.0-0.7); Absolute Lymphocyte Count 1.55 10^3/uL (1.2-3.4); Absolute Monocyte Count 0.74 10^3/uL (0.1-0.8); Absolute Neutrophil Count 6.73 10^3/uL (1.2-6.7); Basophils % 0.5; Eosinophils % 3.5; HCT 39.5 % (40.0-50.0); HGB 13.2 g/dL (13.5-17.5); Immature Grans % 0.2; Lymphocytes % 16.5; MCH 31.7 pg (27.0-33.0); MCHC 33.4 % (32.0-36.0); MPV 9.8 fL (8.0-11.0); Monocytes % 7.9; Neutrophils % 71.4; Nucleated RBC 0 %; Platelet Count 351 10^3/uL (130-400); RBC 4.16 10^6/uL (4.36-5.78); RDW 12.3 % (11.8-14.1); WBC 9.42 10^3/uL (4.4-10.8)
[2021-02-24 06:12] LABS: PTT Activated 25.7 sec (21.0-27.5); Prothrombin Time 10.3 sec (9.3-11.0)
[2021-02-24 06:16] LABS: ALT 23 U/L (16-63); AST 23 U/L (15-37); Albumin 3.7 g/dL (3.4-5.0); Alkaline Phosphatase 123 U/L (46-116); Anion Gap 8.2 mmol/L (3-11); BUN 18 mg/dL (7-18); Bilirubin, Direct 0.2 mg/dL (0.0-0.2); Bilirubin, Total 0.6 mg/dL (0.2-1.0); CO2 28.8 mmol/L (21.0-32.0); Calcium 9.5 mg/dL (8.5-10.1); Chloride 100 mmol/L (98-107); Glucose 112 mg/dL (74-106); Lipase 57 U/L (73-393); Magnesium 1.9 mg/dL (1.8-2.4); Potassium 4.2 mmol/L (3.5-5.1); Sodium 137 mmol/L (136-145); Total Protein 7.6 g/dL (6.4-8.2)
[2021-02-24] MEDS: Normal Saline Flush 10 ML SYR IVP (06:58)
[2021-02-24] MEDS: Omnipaque 350 MG/ML 100 ML BTL IJ (06:58)
[2021-02-24] MEDS: Normal Saline - Diluent 50 ML VIAL IV (06:59)
[2021-02-24 07:27] LABS: Bilirubin Negative (Negative); Blood Trace-lysed (Negative); Clarity Sl Cloudy (Clear); Glucose Negative (Negative); Ketones 15 mg/dL (Negative); Leukocyte Esterase Small (Negative); Nitrite Positive (Negative); Specific Gravity 1.015 (1.005-1.025); Urobilinogen 0.2 EU/dL (Up TO 0.2)
--- NOTE | 2021-02-24 07:33 | DI.VRAD_ITS ---
PROCEDURE INFORMATION: Exam: CTA Abdomen and Pelvis With Contrast Exam date and time: 02/24/2021 6:42 AM Age: 85 years old Clinical indication: Abdominal pain; Generalized; Patient HX: Abdomen pain. ? Mesenteric ischemia TECHNIQUE: Imaging protocol: Computed tomographic angiography of the abdomen and pelvis with contrast material. 3D rendering (Not supervised by radiologist): MIP and/or 3D reconstructed images were created by the technologist. Radiation optimization: All CT scans at this facility use at least one of these dose optimization techniques: automated exposure control; mA and/or kV adjustment per patient size (includes targeted exams where dose is matched to clinical indication); or iterative reconstruction. Contrast material: [id number]; Contrast volume: 100 ml; Contrast route: INTRAVENOUS (IV); COMPARISON: CT Private^ROUTINE ABDOMEN PELVIS WITH CONTRAST (Adult) 07/13/2018 12:37 PM FINDINGS: Aorta: No aortic aneurysm. No aortic dissection. Celiac trunk and mesenteric arteries: No occlusion or significant stenosis. Renal arteries: No occlusion or significant stenosis. Right iliac arteries: No occlusion or significant stenosis. Left iliac arteries: No occlusion or significant stenosis. Liver: No mass. Gallbladder and bile ducts: Unremarkable. No calcified stones. No ductal dilation. Pancreas: Unremarkable. No mass. No ductal dilation. Spleen: Unremarkable. No splenomegaly. Adrenal glands: Unremarkable. No mass. Kidneys and ureters: Unremarkable. No solid mass. No hydronephrosis. Stomach and bowel: Colonic diverticulosis Appendix: No evidence of appendicitis. Intraperitoneal space: Unremarkable. No free air. No significant fluid collection. Lymph nodes: Unremarkable. No enlarged lymph nodes. Urinary bladder: Unremarkable. No mass. Reproductive: Unremarkable as visualized. Bones/joints: Multilevel degenerative changes of the lumbar spine. Bilateral hip arthroplasties. Soft tissues: Unremarkable. IMPRESSION: Patent mesenteric vessels. No evidence of mesenteric ischemia. Dictated and Authenticated by: Nilson Gomez MD. Ordering:CHRISTIE Powell MD
[2021-02-24 07:34] LABS: Bacteria Few HPF (Negative); C & S Indicated? Yes; Casts Negative LPF (Negative); Crystals Negative HPF (Negative); Epithelial Cells Rare HPF (Negative); Mucus Trace (Negative)
[2021-02-24] MEDS: Normal Saline 500 ML IV (07:58)
[2021-02-24] MEDS: ACETAMINOPHEN 1,000 MG/100 ML BTL 400 MG IVPB (08:52)
[2021-02-24] MEDS: levoFLOXacin 500 MG, levoFLOXacin 250 MG 750 MG PO (08:53)
== END 2021-02-24 10:07 | disposition home or self-care (01) ==
PROVIDERS: Emergency Medicine; Emergency Provider Physician Assistant; PCP Family Medicine
DX: N39.0 Urinary tract infection, site not specified (principal); B96.5 Pseudomonas (aeruginosa) (mallei) (pseudomallei) as the cause of diseases classified elsewhere; R10.32 Left lower quadrant pain
CPT/HCPCS: 80053; 83690; 87077; 96361; 96374; 96375; 99285; 74174; 81003; 81015; 82248; 83605; 83735; 85025; 85610; 85730; 87086; 87186; 99283; J0131; J3490

== ENCOUNTER 2021-02-24 16:29 | Observation (INO) | payer OTHER, SELFPAY ==
[2021-02-24 16:36] VITALS: BP 118/61; PULSE 75; RESP 22; TEMP 36.5; O2SAT 91
[2021-02-24 16:40] VITALS: BP 118/61; PULSE 80; O2SAT 94
--- NOTE | 2021-02-24 17:15 | DI.CT_ITS ---
Exam(s) CT ABDOMEN PELVIS W EXAM: CT ABDOMEN PELVIS W CLINICAL HISTORY: severe persistent abd pain TECHNIQUE: Imaging Protocol: Axial computed tomography images with coronal and sagittal reformatted images were created and reviewed CONTRAST MATERIAL: Intravenous: Omnipaque 350 Contrast volume:100 mL Oral: yes / no COMPARISON: CT CT ABDOMEN PELVIS CTA from 02/24/2021 FINDINGS: ABDOMEN: Lung Bases: Bilateral basilar infiltrates. This may represent atelectasis, scarring or pneumonia. P lease correlate clinically. There are bilateral calcified pleural plaques. There is a calcified gra nuloma in the left lower lobe. Mild cardiomegaly. Liver: Normal density. No measurable mass. Portal, Superior Mesenteric, and Splenic Veins: Unremarkable. Gallbladder and Biliary Tract: No radiodense calculus or dilation. Pancreas: Normal density, no abnormal calcifications or inflammatory process. Spleen: Normal. Adrenals: No masses seen. Kidneys: Normal size, contour and axis. No radiodense stones or obstructive uropathy. There are tiny hypodensities in the kidneys. They are too small for further characterization but likely reflect sma ll cysts. There is a simple cyst in the superior pole of the right kidney measuring 1 cm. No furthe r follow-up is recommended. Abdominal Aorta: Abdominal portion non-dilated. Atherosclerosis. Bowel: No obstruction or bowel wall thickening. No evidence of appendicitis. Peritoneal Cavity: No ascites, collection or mesenteric inflammatory response. No free air. Lymph Nodes: Within normal limits. Bones: The patient has bilateral total hip replacements. This causes artifact in the pelvis. Postsu rgical laminectomy changes are seen in the lumbar spine. Marked degenerative changes are seen in the thoracic and lumbar spine. Multilevel central spinal canal and neural foraminal stenosis is present no acute fractures or subluxations. Soft Tissues: Unremarkable. PELVIS: Bladder: The urinary bladder is partially obscured by the artifact from the patient's orthopedic hard bach. There is I did contrast material in the urinary bladder from the patient's CT scan from [facility] in the day. Reproductive Organs: The prostate gland appears markedly enlarged and impinges upon the base of the u rinary bladder. Lymph Nodes: Within normal limits. Bones: Please see above. IMPRESSION: 1. Bilateral basilar infiltrates, right greater than left. Findings may reflect pneumonia. Please c orrelate clinically. 2. No acute abdominal or pelvic process. 3. No evidence of acute appendicitis. RADIATION DOSE DELIVERED: 1,044.77mGy.cm Total DLP DATA REPOSITORY: All CT scans at this facility are submitted to the National Radiology Data Registry (NRDR) Dose Index Registry (DIR) with the [employer] (ACR). RADIATION OPTIMIZATION: All CT scans at this facility use at least one of these dose optimization te chniques: automated exposure control; mA and/or kV adjustment per patient size (includes targeted exa ms where dose is matched to clinical indication); or iterative reconstruction.
--- NOTE | 2021-02-24 17:21 | W.ED.GENAD ---
Discharge Plan Disposition Condition: Stable Discharge Details Chief Complaint: GI Bleed Admit Date/Time: 02/24/21 19:20 Admit Provider: Jerad Gómez Attending Provider: Jerad Gómez Primary Care Provider: Yvonne Solorio ED Provider: Jere Hassan Discharge Instructions Activity:: Activity as Tolerated Equipment/Supplies:: catheter Diet:: Low Sodium Discharge Orders Discharge Orders: Discharge Order (Routine); Ordered 02/26/21 Ordered By: Tuyet Gomez Discharge Data Discharge Date/Time-TO BE ENTERED AT DEPARTURE: 02/24/21 20:08 Medical Decision Making 1727??85-year-old male with multiple medical problems including history of diabetes, diverticular colon, GERD, hemorrhoid and GI bleed, hypertension, here with severe abdominal pain over the past 4 days, seen here earlier today and had negative CTA of the abdomen pelvis, was diagnosed with UTI and started on Levaquin and discharged home. Patient has had worsening pain today. He is tender and now rigid on abdominal exam. Consider perforation. Plan to repeat CT of the abdomen pelvis to assess for acute surgical pathology. Initial concern for GI bleed. Rectal exam performed and Hemoccult negative. Patient did take Pepto-Bismol and I suspect this is resulted in his black stool. Dilaudid 1 mg IV for pain. We will give IV fluids as she is not tolerating oral intake at home. Patient has had recent prolonged cellulitis of the right lower extremity. He does have some erythema of his leg today with mild edema no significant tenderness. 1904 --CT of the abdomen pelvis interpreted by radiology: IMPRESSION: 1. Right lower lobe aspiration, query pneumonia. 2. No evidence for perforation. Normal caliber large and small bowel without evidence for obstruction. 3. Normal appendix. No appendicitis. We will obtain chest x-ray given finding on CT. Patient notes no cough, is saturating well in no respiratory distress. Unlikely pneumonia. Plan to admit to hospitalist service for IV fluid hydration and pain control. 1909--I spoke with Dr. Gómez, discussed ED presentation and course including diagnostics, he will admit the patient. He request bridging orders be placed before. Chest x-ray is pending at time of admission. HPI General Mode of arrival: ambulatory. Date/Time Provider Initiated Documentation: 02/24/21 16:35. Limitations to Documentation: no limitations. Information obtained by: patient and family. HPI Narrative: 85-year-old male with multiple medical problems including history of diabetes, GERD, hemorrhoids, hypertension, neuropathy, recently seen earlier today in the emergency department for 4 days of abdominal pain, had CTA of the abdomen and pelvis that was nondiagnostic, had labs and urinalysis and was diagnosed with a UTI. He was started on Levaquin and discharged home. He notes that today pain is persisted and worsened. Pain is localized to mid abdomen and severe. Described as crampy and sharp. Also notes black stool. Patient states this is his first formed stool in the past 4 days. He does note that he took Pepto-Bismol about 2 days ago. Related Data Home Medications Medication Instructions Recorded Confirmed acetaminophen 1,000 mg PO Q4H PRN tab-cap 07/09/15 03/02/21 melatonin 3 mg PO HS PRN 03/07/17 03/02/21 latanoprost [Xalatan] 1 drp OU HS #0 btl 03/09/17 03/02/21 diclofenac sodium [Voltaren] 100 gm TOPICAL BID #1 script MDD 09/11/17 03/02/21 twice Narcan 4 mg NS as directed 1 Days #2 spray 01/23/18 03/02/21 cholecalciferol (vitamin D3) 1,000 units PO DAILY 03/14/18 03/02/21 fentanyl 1 adh.patch TRANSDERMAL Q72H 30 03/26/18 03/02/21 Days #10 adh.patch MDD 1 patch Q72 hours magnesium 250 mg PO DAILY 06/13/18 03/02/21 mirtazapine 30 mg PO HS 06/13/18 03/02/21 oxycodone 10 mg PO QID 06/13/18 03/02/21 albuterol sulfate 2.5 mg INHALATION Q6H PRN 04/21/19 03/02/21 losartan-hydrochlorothiazide 1 tab PO DAILY 04/21/19 03/02/21 tamsulosin 0.4 mg PO HS 04/21/19 03/02/21 linaclotide 290 mcg capsule 290 mcg PO DAILY PRN cap 05/22/19 03/02/21 Trelegy Ellipta 1 inh INHALATION QAM 02/24/21 03/02/21 buspirone 30 mg PO DAILY 02/24/21 03/02/21 ipratropium-albuterol 3 ml INHALATION DIRECTED 02/24/21 03/02/21 famotidine 40 mg PO DAILY 02/25/21 03/02/21 gabapentin 600 mg PO TID 02/25/21 03/02/21 albuterol sulfate [ProAir HFA] 2 inh INHALATION Q4H PRN 03/02/21 03/02/21 amitriptyline 10 mg PO HS 03/02/21 03/02/21 bisacodyl 10 mg ND DAILY PRN 03/02/21 03/02/21 cetirizine 10 mg PO DAILY 03/02/21 03/02/21 ciprofloxacin HCl 500 mg PO BID 03/02/21 03/02/21 dextromethorphan-guaifenesin 1 tab PO Q6H 03/02/21 03/02/21 dextromethorphan-guaifenesin 1 tab PO BID PRN 03/02/21 03/02/21 [Mucinex DM] finasteride 5 mg PO HS 03/02/21 03/02/21 ondansetron 4 mg PO TID PRN 03/02/21 03/02/21 phenazopyridine [Pyridium] 100 mg PO TID #6 tab 03/02/21 polyethylene glycol 3350 17 g PO DAILY PRN 03/02/21 03/02/21 prednisone See Rx Instructions .ROUTE .COMPLEX 03/02/21 03/02/21 triamcinolone acetonide 1 applic TOPICAL DAILY 03/02/21 03/02/21 Previous Rx's Medication Instructions Recorded latanoprost [Xalatan] 1 drp OU HS #0 btl 03/09/17 diclofenac sodium [Voltaren] 100 gm TOPICAL BID #1 script MDD 09/11/17 twice Narcan 4 mg NS as directed 1 Days #2 spray 01/23/18 fentanyl 1 adh.patch TRANSDERMAL Q72H 30 03/26/18 Days #10 adh.patch MDD 1 patch Q72 hours phenazopyridine [Pyridium] 100 mg PO TID #6 tab 03/02/21 Allergies Allergy/AdvReac Type Severity Reaction Status Date / Time aspirin AdvReac Intermediate GI Bleeding Unverified 03/02/21 08:54 NSAIDS (Non-Steroidal AdvReac Intermediate GI Bleeding Unverified 03/02/21 08:54 Anti-Inflamma General Stated Complaint: GI Bleed DIAZ: 3 Review of Systems All systems reviewed & are unremarkable except as noted in HPI and below Constitutional Constitutional: Denies fever(s) Gastrointestinal Gastrointestinal: Reports as per HPI [facility] Medical History (Updated 03/03/21 @ 14:07 by Desmond Mccullough MD) Diabetes mellitus Diverticula of colon Foreign body in bladder and urethra GERD (gastroesophageal reflux disease) GI bleed Hemorrhoid Hypertension Neuropathy Obesity Osteoarthritis Spinal stenosis Surgical History Endoscopic Carpal Tunnel release (05/04/15) Right by Dr. Ayala Extraction of cataract (02/15/16) [place] R with IOL; and L as well, Dr. Dickinson in [place] Repair of inguinal hernia (08/31/11) Right sided with orchiectomy Rotator Cuff Repair (~1996) Right spinal stenosis (08/15/01) L foot drop result; L4 laminectomy and L4-5 R discectomy, Dr Campbell; second procedure at [place], [place] approx 02/2017 L1-L2 Laminectomy Dr. Cortes [facility] [place] stenosis (~2005) L foot drop result; L4 laminectomy and L4-5 R discectomy, Dr Campbell; second procedure at [place], [place] approx 02/2017 L1-L2 Laminectomy Dr. Cortes [facility] [place] Total replacement of hip (~1999) Right hip, later revised in 2005 left side 2006 Family History Mother , CVA at age 85. Diabetes age 50 Essential hypertension Stroke Uterine cancer Father , Colon CA at age 87. Colon cancer Sister Breast cancer Sister Ovarian cancer Sister Ovarian cancer Sister No problems noted. Sister No problems noted. Sister No problems noted. Sister No problems noted. Sister No problems noted. Brother Diabetes Brother No problems noted. Brother No problems noted. Social History Smoking/Tobacco Use Status: Never Smoking risk assessment performed?: Yes Alcohol Intake: never Drug use: Never Substance use type: does not use Do you feel safe at home: Yes Do you feel safe in your relationship?: Yes Exam Const General: cooperative and uncomfortable [facility] Head: normocephalic and atraumatic Mouth: moist mucous membranes Eyes Conjunctivae: normal conjunctivae Sclera: normal sclerae Neck Neck: trachea midline Resp Auscultation: clear to auscultation bilaterally, no rales, no rhonchi and no wheezes Cardio Rate: regular rate and not tachycardic Rhythm: regular rhythm GI Palpation: soft, firm, no guarding, no masses, not rigid and tender (Diffuse, worse mid abdomen) Auscultation: hypoactive bowel sounds Rectal Exam: abnormal stool black; with no danica blood and heme negative stool (Control passed) Skin General skin exam: no rashes or lesions noted Neuro General: patient alert, patient awake, patient oriented x3 and tone normal Extrem General: edema Laterality: right (Trace lower rt leg) Right lower extremity: lower leg Details: erythema; no tenderness Psych Appearance: grossly normal Mental Status: mental status grossly normal Course Vital Signs Vital signs: Vital Signs Temperature 36.5 C 02/24/21 16:36 Pulse 75 02/24/21 16:36 Respiratory Rate 22 02/24/21 16:36 Blood Pressure 118/61 02/24/21 16:36 Pulse Oximetry 91 L 02/24/21 16:36 Temperature 36.5 C 02/24/21 16:36 Temperature Source Skin 02/24/21 16:36 Pulse 75 02/24/21 16:36 Respiratory Rate 22 02/24/21 16:36 Respiratory Effort 02/24/21 16:55 Blood Pressure 118/61 02/24/21 16:36 Blood Pressure Position Sitting 02/24/21 16:36 Pulse Oximetry 91 L 02/24/21 16:36 Oxygen Delivery Method Room Air 02/24/21 16:36 Oxygen Flow Rate 0 02/24/21 16:36 Pain Level 6 02/24/21 16:36
[2021-02-24] MEDS: HYDROmorphone 2 MG/ML VIAL 1 MG IVP (17:31)
[2021-02-24] MEDS: Normal Saline 500 ML IV (17:31)
[2021-02-24 17:33] LABS: Abs Immature Grans 0.03 10^3/uL (0.0-0.06); Absolute Basophil Count 0.07 10^3/uL (0.0-0.2); Absolute Eosinophil Count 0.23 10^3/uL (0.0-0.7); Absolute Lymphocyte Count 1.83 10^3/uL (1.2-3.4); Absolute Monocyte Count 1.01 10^3/uL (0.1-0.8); Basophils % 0.7; Eosinophils % 2.4; HCT 38.4 % (40.0-50.0); HGB 12.9 g/dL (13.5-17.5); Immature Grans % 0.3; Lymphocytes % 18.7; MCH 31.8 pg (27.0-33.0); MCHC 33.6 % (32.0-36.0); MCV 94.6 fL (80-95); MPV 10.2 fL (8.0-11.0); Monocytes % 10.3; Neutrophils % 67.6; Nucleated RBC 0 %; Platelet Count 353 10^3/uL (130-400); RBC 4.06 10^6/uL (4.36-5.78); RDW 11.9 % (11.8-14.1); RDW-SD 41.8 fL; WBC 9.77 10^3/uL (4.4-10.8)
[2021-02-24 17:34] LABS: Lactate 0.8 mmol/L (0.6-1.4)
[2021-02-24] MEDS: Omnipaque 350 MG/ML 100 ML BTL IJ (17:53)
[2021-02-24 17:58] LABS: ALT 24 U/L (16-63); AST 35 U/L (15-37); Albumin 3.6 g/dL (3.4-5.0); Alkaline Phosphatase 118 U/L (46-116); Anion Gap 10.8 mmol/L (3-11); BUN 16 mg/dL (7-18); Bilirubin, Total 0.5 mg/dL (0.2-1.0); CO2 27.2 mmol/L (21.0-32.0); CREATININE 0.9 mg/dL (0.70-1.30); Calcium 9.1 mg/dL (8.5-10.1); Chloride 100 mmol/L (98-107); Glucose 100 mg/dL (74-106); Lipase 72 U/L (73-393); Potassium 4.2 mmol/L (3.5-5.1); Sodium 138 mmol/L (136-145); Total Protein 7.3 g/dL (6.4-8.2)
[2021-02-24 18:02] VITALS: O2SAT 96
[2021-02-24 18:16] VITALS: BP 133/101; PULSE 84; O2SAT 94
--- NOTE | 2021-02-24 18:36 | DI.VRAD_ITS ---
PROCEDURE INFORMATION: Exam: CT Abdomen And Pelvis With Contrast Exam date and time: 02/24/2021 5:59 PM Age: 85 years old Clinical indication: Abdominal pain TECHNIQUE: Imaging protocol: Computed tomography of the abdomen and pelvis with contrast. COMPARISON: CT ABDOMEN CTA 02/24/2021 6:34 AM FINDINGS: Lungs: Posteromedial right lower lobe aspiration. Multiple lingular pericardial calcifications and calcified granulomas in the medial basal left lower lobe. Stable calcified pleural plaques in the medial right lower hemithorax. Heart: Mild cardiomegaly. Moderate coronary artery calcifications. Liver: Normal. No mass. Lateral dome coarse calcified granuloma. Gallbladder and bile ducts: Normal. No calcified stones. No ductal dilation. Pancreas: Normal. No ductal dilation. Spleen: Normal. No splenomegaly. Adrenal glands: Normal. No mass. Kidneys and ureters: Numerous simple bilateral renal cortical cysts. Stomach and bowel: Unremarkable. No obstruction. No mucosal thickening. Sigmoid diverticula without evidence for acute diverticulitis. Appendix: Normal appendix. No appendicitis. Intraperitoneal space: Unremarkable. No free air. No significant fluid collection. Vasculature: See Heart finding. Lymph nodes: Unremarkable. No enlarged lymph nodes. Urinary bladder: Urinary bladder is distended with urine and contrast from the prior CT angiogram. Reproductive: Marked prostate gland enlargement. Bones/joints: Bilateral total hip arthroplasties. Multilevel degenerative changes throughout the upper lumbar spine with severe disc space narrowing and discogenic endplate changes. Soft tissues: Unremarkable. IMPRESSION: 1. Right lower lobe aspiration, query pneumonia. 2. No evidence for perforation. Normal caliber large and small bowel without evidence for obstruction. 3. Normal appendix. No appendicitis. Dictated and Authenticated by: Milli Dooley MD. Ordering:BOOGIE Oquendo MD
[2021-02-24 19:26] LABS: Source Nasal/Nares
--- NOTE | 2021-02-24 19:30 | DI.RAD_ITS ---
Exam(s) XR PORTABLE CHEST AP EXAM: XR PORTABLE CHEST AP CLINICAL HISTORY: ? pna on abd ct TECHNIQUE: 2D digital imaging was performed. COMPARISON: No exams were available for comparison FINDINGS: MEDIASTINUM: Normal. HEART: Normal. PULMONARY VASCULATURE: Normal. There is tortuosity of the thoracic aorta. LUNGS: There is an infiltrate in the right lung base medially. The lungs are otherwise clear. PLEURAL SPACE: No pleural effusion or pneumothorax. BONE:Within normal limits for the patient's age. OTHER FINDINGS:Normal. IMPRESSION: Right basilar infiltrate. DATA REPOSITORY: RADIATION DOSE DELIVERED:
--- NOTE | 2021-02-24 19:42 | DI.VRAD_ITS ---
PROCEDURE INFORMATION: Exam: XR Chest Exam date and time: 02/24/2021 7:04 PM Age: 85 years old Clinical indication: Abnormal findings; Abnormal radiologic exam of lung or chest; Patient HX: Abnormal abd/pel CT TECHNIQUE: Imaging protocol: XR of the chest. Views: 1 view. COMPARISON: CR XR CHEST 2V PA LATERAL 04/21/2019 9:55 AM FINDINGS: Lungs: Medial right lower lung infiltrate. The right upper lobe and left lung is clear. Pleural spaces: Unremarkable. No pleural effusion. No pneumothorax. Heart/Mediastinum: Unremarkable. No cardiomegaly. Vasculature: Tortuous aorta. Bones/joints: Unremarkable. IMPRESSION: Medial right lower lung infiltrate. Dictated and Authenticated by: Milli Dooley MD. Ordering:BOOGIE Oquendo MD
--- NOTE | 2021-02-24 20:05 | NUR.NOTE ---
Nursing Note: REPORT TO DON
[2021-02-24 20:33] VITALS: BP 149/78; PULSE 77; RESP 18; TEMP 36.8; O2SAT 96
--- NOTE | 2021-02-24 21:13 | HPE_ITS ---
Date of service: 02/24/21 Time of Service: 21:14 Assessment and Plan Assessment and plan (1) UTI (urinary tract infection): Status: Acute Assessment and plan: No h/o UTI per pt. No flank pain or other signs that he might have obstructing nephrolithiasis. Consider renal US Rocephin 1 gram IV Q24 hours. Culture pending. LIkely the cause of his abd pain. (2) SOBOE (shortness of breath on exertion): Status: Acute Assessment and plan: No dx of COPD or asthma but is on Trelegy scheduled as well as Duonebs and albuterol prn. No current c/o SOA, cough, sputum. Covid test pending. Is on Rocephin for UTI; potential coverage for pulmonary infiltrate. (3) spinal stenosis: Status: None Assessment and plan: Cont fentanyhl patch. Takes oxycodone at home. Given dose of IV dilaudid in the ED; cont prn IV dilaudid until abd pain improves, then back to oxycodone. + neuropathy; cont gabapentin (4) Lung infiltrate: Status: Acute Assessment and plan: See SOBOE (5) Essential hypertension: Status: Acute Assessment and plan: Cont Losartan and HCTZ. Monitor (6) BPH (benign prostatic hyperplasia): Status: Chronic Assessment and plan: Marked prostate gland enlargment on CT. Cont tamsulosin and finasteride. No signs of prostatitis. 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 He initially presented earlier in the day of this admission with c/o a 4 day h/o abd pain. CTA of abd/pelvis was unremarkable. Dxd with a UTI and d/c'd to home on Levaquin. He presented back with abd pain that he now states is in the lower mid abd; sharp and crampy qualities. No emesis, hematemesis. He has a h/o consitpation and recently noted a dark stool. He had also taken Pepto Bismol 2 days prior to presenting to the ED. Stool was heme negative. Urine was + for nitrities, WBCs, few bacteria. No dysuria or frequency. No pain in the perineum. Repeat CT abd/pelvis was negative for any acute findings, though there was a concern for RLL aspiration. CXR showed a medial R lung infiltrate. He denied any cough/sputum, F/C, increased SOB over his baseline. Covid test pending. He was admitted for IV antibiotics for his UTI and pain control. Review of Systems All systems reviewed & are unremarkable except as noted in HPI and below PFSH Medical History (Updated 02/24/21 @ 21:28 by Jerad Gómez MD) Diabetes mellitus Diverticula of colon GERD (gastroesophageal reflux disease) GI bleed Hemorrhoid Hypertension Neuropathy Obesity Osteoarthritis Spinal stenosis Surgical History (Updated 02/24/21 @ 21:27 by Jerad Gómez MD) Endoscopic Carpal Tunnel release (05/04/15) Right by Dr. Ayala Extraction of cataract (02/15/16) [place] R with IOL; and L as well, Dr. Dickinson in [place] Repair of inguinal hernia (08/31/11) Right sided with orchiectomy Rotator Cuff Repair (~1996) Right spinal stenosis (08/15/01) L foot drop result; L4 laminectomy and L4-5 R discectomy, Dr Campbell; second procedure at [place], [place] approx 02/2017 L1-L2 Laminectomy Dr. Cortes [facility] [place] spinal stenosis (~2005) L foot drop result; L4 laminectomy and L4-5 R discectomy, Dr Campbell; second procedure at [place], [place] approx 02/2017 L1-L2 Laminectomy Dr. 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 Diabetes age 50 Essential hypertension Stroke Uterine cancer Father , Colon CA at age 87. Colon cancer Sister Breast cancer Sister Ovarian cancer Sister Ovarian cancer Sister No problems noted. Sister No problems noted. Sister No problems noted. Sister No problems noted. Sister No problems noted. Brother Diabetes Brother No problems noted. Brother No problems noted. Social History Smoking/Tobacco Use Status: Never Smoking risk assessment performed?: Yes Alcohol Intake: never Drug use: Never Substance use type: does not use Do you feel safe at home: Yes Do you feel safe in your relationship?: Yes Meds Allergies and Home Medications Allergies Allergy/AdvReac Type Severity Reaction Status Date / Time aspirin AdvReac Intermediate GI Bleeding Unverified 02/24/21 16:39 NSAIDS (Non-Steroidal AdvReac Intermediate GI Bleeding Unverified 02/24/21 16:39 Anti-Inflamma Home Medications Medication Instructions Recorded Confirmed Type acetaminophen 1,000 mg PO Q4H PRN tab-cap 07/09/15 02/24/21 History melatonin 3 mg PO HS 03/07/17 02/24/21 History latanoprost [Xalatan] 1 drp OU HS #0 btl 03/09/17 02/24/21 Rx finasteride 5 mg PO DAILY #90 tab 08/14/17 02/24/21 Rx diclofenac sodium [Voltaren] 100 gm TOPICAL BID #1 script MDD 09/11/17 02/24/21 Rx twice Narcan 4 mg NS as directed 1 Days #2 spray 01/23/18 02/24/21 Rx cholecalciferol (vitamin D3) 1,000 units PO DAILY 03/14/18 02/24/21 History fentanyl 1 adh.patch TRANSDERMAL Q72H 30 03/26/18 02/24/21 Rx Days #10 adh.patch MDD 1 patch Q72 hours Famotidine 20 mg PO PRN PRN 06/13/18 02/24/21 History gabapentin 300 mg PO TID 06/13/18 02/24/21 History magnesium 250 mg PO DAILY 06/13/18 02/24/21 History mirtazapine 30 mg PO HS 06/13/18 02/24/21 History oxycodone 10 mg PO TID 06/13/18 02/24/21 History cyanocobalamin (vitamin B-12) 1,000 mcg PO DAILY 07/13/18 02/24/21 History albuterol sulfate 2.5 mg INHALATION Q6H PRN 04/21/19 02/24/21 History albuterol sulfate [Ventolin HFA] 2 puff INHALATION Q6H PRN 04/21/19 02/24/21 History amitriptyline 10 - 20 mg PO HS 04/21/19 02/24/21 History losartan-hydrochlorothiazide 1 tab PO DAILY 04/21/19 02/24/21 History tamsulosin 0.4 mg PO HS 04/21/19 02/24/21 History linaclotide 290 mcg capsule 290 mcg PO DAILY PRN cap 05/22/19 02/24/21 History polyethylene glycol 3350 17 gram 17 g PO DAILY PRN gm 05/22/19 02/24/21 History oral powder packet Trelegy Ellipta 1 inh INHALATION QAM 02/24/21 02/24/21 History buspirone 30 mg PO DAILY 02/24/21 02/24/21 History ipratropium-albuterol 3 ml INHALATION DIRECTED 02/24/21 02/24/21 History levofloxacin 750 mg PO DAILY 4 Days #4 tab 02/24/21 02/24/21 Rx Exam Const General: cooperative and no acute distress Nutritional Appearance: overweight Orientation: alert and oriented x3 HENMT Head: normocephalic and atraumatic Eyes Sclera: sclerae normal Pupils: PERRL Resp Effort & Inspection: normal respiratory effort Auscultation: clear to auscultation bilaterally Cardio Rate: regular rate Rhythm: regular rhythm Heart Sounds: S1 normal and S2 normal GI Palpation: firm and tender suprapubicly; with no rebound tenderness Auscultation: normal bowel sounds Skin General skin exam: no rashes or lesions noted and other (R lovell with violacious discoloration.) Neuro General: no focal motor deficits Cognition: normal cognition Speech: speech normal Extrem General: no pedal edema and no calf tenderness Results Labs Result diagrams: 02/24/21 17:12 02/24/21 17:12 Labs: Laboratory Results - last 24 hr 02/24/21 02/24/21 02/24/21 17:12 17:12 17:26 WBC 9.77 RBC 4.06 L Hgb 12.9 L Hct 38.4 L MCV 94.6 MCH 31.8 MCHC 33.6 RDW 11.9 Plt Count 353 MPV 10.2 Immature Gran % 0.3 Neutrophils % 67.6 Lymphocytes % 18.7 Monocytes % 10.3 Eosinophils % 2.4 Basophils % 0.7 Nucleated RBC % 0 Absolute Neutrophils 6.60 Absolute Lymphocytes 1.83 Absolute Monocytes 1.01 H Absolute Eosinophils 0.23 Absolute Basophils 0.07 VBG Lactate 0.8 Sodium 138 Potassium 4.2 Chloride 100 Carbon Dioxide 27.2 Anion Gap 10.8 BUN 16 Creatinine 0.9 Estimated GFR/1.73 m2 >= 60.00 Glucose 100 Calcium 9.1 Total Bilirubin 0.5 AST 35 ALT 24 Alkaline Phosphatase 118 H Total Protein 7.3 Albumin 3.6 Lipase 72 COVID-19 Source 02/24/21 19:22 WBC RBC Hgb Hct MCV MCH MCHC RDW Plt Count MPV Immature Gran % Neutrophils % Lymphocytes % Monocytes % Eosinophils % Basophils % Nucleated RBC % Absolute Neutrophils Absolute Lymphocytes Absolute Monocytes Absolute Eosinophils Absolute Basophils VBG Lactate Sodium Potassium Chloride Carbon Dioxide Anion Gap BUN Creatinine Estimated GFR/1.73 m2 Glucose Calcium Total Bilirubin AST ALT Alkaline Phosphatase Total Protein Albumin Lipase COVID-19 Source Nasal/nares Last Vital Signs Temp 36.8 C 02/24/21 20:33 Pulse 77 02/24/21 20:33 Resp 18 02/24/21 20:33 BP 149/78 H 02/24/21 20:33 Pulse Ox 96 02/24/21 20:33 COVID-19 Screening Have you, or household traveled for leisure in last 14 days?: No Had IN PERSON contact w/suspected or confirmed C-19 person: No
[2021-02-24 22:03] LABS: COVID-19 PCR Negative (Negative)
[2021-02-24 22:10] LABS: TSH 1.56 uIU/mL (0.36-3.74)
[2021-02-24] MEDS: fentaNYL 12 MCG PATCH TD (22:20)
[2021-02-24] MEDS: Normal Saline Flush 10 ML SYR IVP ×2 (22:21→22:31)
[2021-02-24] MEDS: HYDROmorphone 2 MG/ML VIAL 0.5 MG IVP (22:21)
[2021-02-24] MEDS: Melatonin 3 MG TAB PO (22:23)
[2021-02-24] MEDS: Heparin 5,000 UNITS/ML VIAL 5000 UNITS SC (22:23)
[2021-02-24] MEDS: Tamsulosin 0.4 MG CAPCR PO (22:23)
[2021-02-24] MEDS: Normal Saline 500 ML 30 ML IV (22:37)
[2021-02-24] MEDS: cefTRIAXone 1 GM/50 ML BAG IVPB (22:37)
[2021-02-24] MEDS: Mirtazapine 15 MG TAB 30 MG PO (22:46)
[2021-02-24 22:53] VITALS: BP 142/72; PULSE 80; RESP 18; TEMP 36.8; O2SAT 97
--- NOTE | 2021-02-25 | DI.US_ITS ---
Exam(s) US RENAL EXAM: US RENAL CLINICAL HISTORY: supra pubic pain, r/o nephroliathasis. TECHNIQUE: Jack scale, color and spectral Doppler were used. COMPARISON: No exams were available for comparison FINDINGS: Renal size in cm: Right: 9.9. Left: 11.4. Echogenicity: Normal. Hydronephrosis: No. Cyst or mass: No. Nephrolithiasis: No. Other findings: None. Bladder:Normal. Ureteral jets: Right: Visualized and unremarkable. Left: Visualized and unremarkable. Prevoid vol:395 cc Postvoid vol:120 cc Prostate: 96 cc Renal color flow: Symmetric and within normal limits. IMPRESSION: 1. No evidence of nephrolithiasis or hydronephrosis. 2. Marked prostatic enlargement. 3. Large postvoid urinary bladder volume. DATA REPOSITORY:
[2021-02-25] MEDS: Lactated Ringers 1,000 ML 80 ML IV ×2 (01:17→15:34)
[2021-02-25] MEDS: Normal Saline Flush 10 ML SYR IVP ×5 (01:35→09:53)
[2021-02-25] MEDS: HYDROmorphone 2 MG/ML VIAL 0.5 MG IVP ×4 (01:35→09:53)
[2021-02-25 03:52] VITALS: BP 145/79; PULSE 84; RESP 16; TEMP 37.2; O2SAT 92
[2021-02-25] MEDS: Heparin 5,000 UNITS/ML VIAL 5000 UNITS SC ×3 (06:03→22:30)
[2021-02-25 07:07] LABS: Abs Immature Grans 0.01 10^3/uL (0.0-0.06); Absolute Basophil Count 0.04 10^3/uL (0.0-0.2); Absolute Eosinophil Count 0.25 10^3/uL (0.0-0.7); Absolute Lymphocyte Count 1.89 10^3/uL (1.2-3.4); Absolute Neutrophil Count 4.93 10^3/uL (1.2-6.7); Basophils % 0.5; Eosinophils % 3.2; HCT 36.7 % (40.0-50.0); HGB 12.5 g/dL (13.5-17.5); Immature Grans % 0.1; Lymphocytes % 23.9; MCH 31.6 pg (27.0-33.0); MCHC 34.1 % (32.0-36.0); MCV 92.7 fL (80-95); MPV 9.9 fL (8.0-11.0); Monocytes % 10.1; Neutrophils % 62.2; Nucleated RBC 0 %; Platelet Count 325 10^3/uL (130-400); RBC 3.96 10^6/uL (4.36-5.78); RDW 12.1 % (11.8-14.1); RDW-SD 41.4 fL; WBC 7.92 10^3/uL (4.4-10.8)
[2021-02-25 07:34] LABS: Anion Gap 10.1 mmol/L (3-11); BUN 17 mg/dL (7-18); CO2 26.9 mmol/L (21.0-32.0); CREATININE 0.9 mg/dL (0.70-1.30); Calcium 8.6 mg/dL (8.5-10.1); Chloride 104 mmol/L (98-107); Glucose 98 mg/dL (74-106); Potassium 3.8 mmol/L (3.5-5.1); Sodium 141 mmol/L (136-145)
[2021-02-25] MEDS: Losartan 50 MG TAB 100 MG PO (08:14)
[2021-02-25] MEDS: Finasteride 5 MG TAB PO (08:15)
[2021-02-25] MEDS: busPIRone 15 MG TAB 30 MG PO (08:15)
[2021-02-25] MEDS: Magnesium Oxide 400 MG TAB PO (08:15)
[2021-02-25] MEDS: hydroCHLOROthiazide 25 MG TAB PO (08:15)
[2021-02-25] MEDS: Gabapentin 300 MG CAP PO ×2 (08:15→10:30)
[2021-02-25 08:20] VITALS: BP 139/69; PULSE 89; RESP 18; TEMP 37.3; O2SAT 93
[2021-02-25] MEDS: Acetaminophen 325 MG TAB 650 MG PO ×2 (09:01→22:29)
--- NOTE | 2021-02-25 09:29 | NUR.NOTE ---
Nursing Note: At 0925 on 02/25/21, this RN answered a call from the pt.'s . Pt.'s was updated regarding the pt.'s mentation, pain level, head to toe assessment, plan of care, including discharge plan, etc. Pt.'s verbalized understanding and presented with a few questions that were answered. RN will reassess as necessary.
[2021-02-25] MEDS: fentaNYL 25 MCG PATCH TD (10:30)
[2021-02-25 11:12] VITALS: BP 153/69; PULSE 78; RESP 19; TEMP 37; O2SAT 91
--- NOTE | 2021-02-25 13:11 | W.PM.PROGNOT ---
Date of Service Date of service: 02/25/21 Time of Service: 13:11 Assessment and Plan Assessment and plan (1) UTI (urinary tract infection): Start date: 02/25/21 Start time: 13:20 Status: Acute Assessment and plan: No h/o UTI per pt. No flank pain or other signs that he might have obstructing nephrolithiasis. Renal u/s ordered Rocephin 1 gram IV Q24 hours. Culture growing revealing pseudomonas aeruginosa greater than 100,000 Trial pyridium for pain (2) SOBOE (shortness of breath on exertion): Start date: 02/25/21 Start time: 13:24 Status: Resolved Assessment and plan: No dx of COPD or asthma but is on Trelegy patient states he takes prn as well as Duonebs and albuterol prn. No current c/o SOA, cough, sputum. Covid test negative Is on Rocephin for UTI; potential coverage for pulmonary infiltrate. (3) Lung infiltrate: Start date: 02/25/21 Start time: 13:26 Status: Acute Assessment and plan: See SOBOE (4) Essential hypertension: Start date: 02/25/21 Start time: 13:26 Status: Acute Assessment and plan: Cont Losartan and HCTZ. Monitor (5) BPH (benign prostatic hyperplasia): Start date: 02/25/21 Start time: 13:26 Status: Chronic Assessment and plan: Marked prostate gland enlargment on CT. Cont tamsulosin and finasteride. No signs of prostatitis. as above (6) DVT prophylaxis: Start date: 02/25/21 Start time: 13:27 Status: Acute Assessment and plan: Heparin sc. (7) Discharge planning issues: Start date: 02/25/21 Start time: 13:28 Status: Acute Assessment and plan: D/c home when medically ready Subjective Subjective Patient reports: other Interval history since last seen: Doing better patient states his pain is still in the suprabupic region will trial pyridium otherwise. no pain. LSC, denies CP, SOB, N/V/d Exam Const General: cooperative and no acute distress Nutritional Appearance: overweight Orientation: alert and oriented x3 HENMT Head: normocephalic and atraumatic Eyes Sclera: sclerae normal Pupils: PERRL Resp Effort & Inspection: normal respiratory effort Auscultation: clear to auscultation bilaterally Cardio Rate: regular rate Rhythm: regular rhythm Heart Sounds: S1 normal and S2 normal GI Palpation: firm and tender suprapubicly; with no rebound tenderness Auscultation: normal bowel sounds Skin General skin exam: no rashes or lesions noted and other (R lovell with violacious discoloration.) Neuro General: no focal motor deficits Cognition: normal cognition Speech: speech normal Extrem General: no pedal edema and no calf tenderness Objective Last Vital Signs Temp 37.0 C 02/25/21 11:12 Pulse 78 02/25/21 11:12 Resp 19 02/25/21 11:12 BP 153/69 H 02/25/21 11:12 Pulse Ox 91 L 02/25/21 11:12 Laboratory Results - last 24 hr 02/24/21 02/24/21 02/24/21 17:12 17:12 17:12 WBC 9.77 RBC 4.06 L Hgb 12.9 L Hct 38.4 L MCV 94.6 MCH 31.8 MCHC 33.6 RDW 11.9 Plt Count 353 MPV 10.2 Immature Gran % 0.3 Neutrophils % 67.6 Lymphocytes % 18.7 Monocytes % 10.3 Eosinophils % 2.4 Basophils % 0.7 Nucleated RBC % 0 Absolute Neutrophils 6.60 Absolute Lymphocytes 1.83 Absolute Monocytes 1.01 H Absolute Eosinophils 0.23 Absolute Basophils 0.07 VBG Lactate Sodium 138 Potassium 4.2 Chloride 100 Carbon Dioxide 27.2 Anion Gap 10.8 BUN 16 Creatinine 0.9 Estimated GFR/1.73 m2 >= 60.00 Glucose 100 Calcium 9.1 Total Bilirubin 0.5 AST 35 ALT 24 Alkaline Phosphatase 118 H Total Protein 7.3 Albumin 3.6 Lipase 72 TSH 1.56 COVID-19 Source SARS-CoV-2 (PCR) 02/24/21 02/24/21 02/25/21 17:26 19:22 06:56 WBC RBC Hgb Hct MCV MCH MCHC RDW Plt Count MPV Immature Gran % Neutrophils % Lymphocytes % Monocytes % Eosinophils % Basophils % Nucleated RBC % Absolute Neutrophils Absolute Lymphocytes Absolute Monocytes Absolute Eosinophils Absolute Basophils VBG Lactate 0.8 Sodium 141 Potassium 3.8 Chloride 104 Carbon Dioxide 26.9 Anion Gap 10.1 BUN 17 Creatinine 0.9 Estimated GFR/1.73 m2 >= 60.00 Glucose 98 Calcium 8.6 Total Bilirubin AST ALT Alkaline Phosphatase Total Protein Albumin Lipase TSH COVID-19 Source Nasal/nares SARS-CoV-2 (PCR) Negative 02/25/21 06:56 WBC 7.92 RBC 3.96 L Hgb 12.5 L Hct 36.7 L MCV 92.7 MCH 31.6 MCHC 34.1 RDW 12.1 Plt Count 325 MPV 9.9 Immature Gran % 0.1 Neutrophils % 62.2 Lymphocytes % 23.9 Monocytes % 10.1 Eosinophils % 3.2 Basophils % 0.5 Nucleated RBC % 0 Absolute Neutrophils 4.93 Absolute Lymphocytes 1.89 Absolute Monocytes 0.80 Absolute Eosinophils 0.25 Absolute Basophils 0.04 VBG Lactate Sodium Potassium Chloride Carbon Dioxide Anion Gap BUN Creatinine Estimated GFR/1.73 m2 Glucose Calcium Total Bilirubin AST ALT Alkaline Phosphatase Total Protein Albumin Lipase TSH COVID-19 Source SARS-CoV-2 (PCR)
[2021-02-25] MEDS: Gabapentin 300 MG CAP 600 MG PO ×2 (13:53→19:40)
[2021-02-25] MEDS: Gabapentin 600 MG TAB PO ×2 (13:53→19:41)
[2021-02-25] MEDS: Phenazopyridine 100 MG TAB PO ×2 (14:01→19:41)
--- NOTE | 2021-02-25 15:00 | CHAPLAIN ---
Jamie was resting in bed when I visited. He was pleasant and engaged in a conversation. He hopes to be discharged soon.
[2021-02-25 15:53] VITALS: BP 127/72; PULSE 86; RESP 18; TEMP 37.3; O2SAT 93
[2021-02-25] MEDS: CEFEPIME 1 GM in Normal Saline 50 ML IVPB (15:54)
[2021-02-25] MEDS: oxyCODONE 10 MG TAB PO ×2 (16:02→22:29)
--- NOTE | 2021-02-25 18:31 | INITIAL_ITS ---
- If Service Date Differs Date of service: 02/25/21 Time of Service: 19:35 Care Management Initial Assess REASON FOR HOSPITALIZATION:: Abdominal pain intractable PAST MEDICAL HISTORY/PAST SURGICAL HISTORY:: Diabetes mellitus. Diverticula of colon. GERD (gastroesophageal reflux disease). GI bleed. Hemorrhoid. Hypertension. Neuropathy. Obesity. Osteoarthritis. Spinal stenosis. Endoscopic Carpal Tunnel release (05/04/15). Right by Dr. Ayala. Extraction of cataract (02/15/16). [place] R with IOL; and L as well, Dr. Dickinson in [place]. Repair of inguinal hernia (08/31/11). Right sided with orchiectomy. Rotator Cuff Repair (~1996). Right. spinal stenosis (08/15/01). L foot drop result; L4 laminectomy and L4-5 R discectomy, Dr Campbell; second procedure at [place], [place] approx 2005. 02/2017 L1[place]L2 [place]amine[place] [facility] [place] ([place] L foot drop result; L4 laminectomy and L4-5 R discectomy, Dr Campbell; second procedure at [place], [place] approx 2005. 02/2017 L1-L2 Lamine[place] [facility] [place] replacement of hip (~1999). Right hip, later revised in 2005. left side 2006 PREVIOUS FUNCTIONAL STATUS/SOCIAL/FAMILY SUPPORTS:: Resides in [place] with , Aydee, the couple have three adult children who reside locally. Jamie is independent at baseline in the community. CURRENT HOME/COMMUNITY SERVICES/EQUIPMENT:: Raised toilet seat, grab bars, tub seat/bench, handrails PRIMARY CARE PHYSICIAN:: Yvonne Solorio POTENTIAL DISCHARGE NEEDS:: Follow up appointments. PATIENT/FAMILY EDUCATION NEEDS:: Review discharge instructions, discuss Ask Me Three. ANTICIPATED BARRIERS TO DISCHARGE:: None identified. TRANSPORTATION:: Via private vehicle with his . PLAN:: Jamie will return home when ready per MD. He will follow up with his PCP and plan of care as prescribed. He will transport via private vehicle with his , Aydee.
[2021-02-25 19:40] VITALS: BP 143/68; PULSE 78; RESP 16; TEMP 36.5; O2SAT 92
[2021-02-25] MEDS: Mirtazapine 15 MG TAB 30 MG PO (22:29)
[2021-02-25] MEDS: Tamsulosin 0.4 MG CAPCR PO (22:29)
[2021-02-25 23:32] VITALS: BP 149/83; PULSE 86; RESP 16; TEMP 36.3; O2SAT 93
[2021-02-26] MEDS: Acetaminophen 325 MG TAB 650 MG PO ×2 (02:26→08:10)
[2021-02-26] MEDS: Melatonin 3 MG TAB PO (02:26)
[2021-02-26 03:16] VITALS: BP 145/106; PULSE 86; RESP 16; TEMP 36.2; O2SAT 90
[2021-02-26] MEDS: CEFEPIME 1 GM in Normal Saline 50 ML IVPB (03:32)
[2021-02-26] MEDS: oxyCODONE 10 MG TAB PO ×2 (03:32→09:14)
[2021-02-26] MEDS: Lactated Ringers 1,000 ML 80 ML IV (04:20)
[2021-02-26] MEDS: Heparin 5,000 UNITS/ML VIAL 5000 UNITS SC (05:21)
[2021-02-26 06:52] LABS: HCT 36.8 % (40.0-50.0); HGB 12.6 g/dL (13.5-17.5); MCHC 34.2 % (32.0-36.0); MCV 93.4 fL (80-95); Platelet Count 324 10^3/uL (130-400); RBC 3.94 10^6/uL (4.36-5.78); RDW 12.1 % (11.8-14.1); RDW-SD 42.1 fL; WBC 8.44 10^3/uL (4.4-10.8)
[2021-02-26 07:29] VITALS: BP 128/67; PULSE 86; RESP 17; TEMP 36.6; O2SAT 92
[2021-02-26] MEDS: Losartan 50 MG TAB 100 MG PO (08:09)
[2021-02-26] MEDS: Gabapentin 600 MG TAB PO (08:09)
[2021-02-26] MEDS: hydroCHLOROthiazide 25 MG TAB PO (08:10)
[2021-02-26] MEDS: Phenazopyridine 100 MG TAB PO (08:10)
[2021-02-26] MEDS: Finasteride 5 MG TAB PO (08:10)
[2021-02-26] MEDS: busPIRone 15 MG TAB 30 MG PO (08:10)
[2021-02-26] MEDS: Magnesium Oxide 400 MG TAB PO (08:10)
--- NOTE | 2021-02-26 09:01 | PDOC.CMDIS ---
LACE Index Scoring Tool - Questions: Length of Stay (in days): 2 Acuity (Admit via E.D.?): Yes Comorbidities: Diabetes w/o Complication E.D. Visits: 2 - Answers: Total Score: 8 Risk of Readmission: Low Risk Care Management Discharge Reason for Hospitalization: Abdominal pain intractable Discharge Plan: Jamie will return home when ready per MD. He will follow up with his PCP and plan of care as prescribed. He will transport via private vehicle with his , Aydee. Patient/Family Education Needs: Review discharge instructions, discuss Ask Me Three.
[2021-02-26] MEDS: Umeclidinium 7 CAP INHALER 1 CAP IH (09:08)
[2021-02-26] MEDS: Budesonide/Formoterol 80/4.5 6.9 GM 60 PUFF INH IH (09:09)
[2021-02-26] MEDS: Inhaler, Assist Device 1 EACH MC (09:09)
[2021-02-26 11:00] VITALS: BP 138/83; PULSE 74; RESP 18; TEMP 36.6; O2SAT 93
--- NOTE | 2021-02-26 11:10 | NUR.NOTE ---
Nursing Note: Report given and responsibility of care transferred to Aileen Mathew LPN at 1105 on 02/26/21. RN will reassess as necessary.
--- NOTE | 2021-02-26 11:35 | DSE_ITS ---
Date of service: 02/26/21 Time of Service: 11:35 DS: Diagnosis Discharge Diagnosis (1) UTI (urinary tract infection): Start date: 02/26/21 Start time: 11:35 Status: Acute Asessment and Plan: Cx grew pseudomonas aeruginosa greater than 100,000 colonies. U/s ordered IMPRESSION: 1. No evidence of nephrolithiasis or hydronephrosis. 2. Marked prostatic enlargement. 3. Large postvoid urinary bladder volume. He is being discharged home on course of cefpodoxime for both questionable lung infiltrate and UTI no fever or leukocytosis. He will also be discharged home on oxybutynin for bladder spasms. Caban catheter being placed and he will need follow up with Dr. Mccullough this week. Complicated UTI total 14 day course (2) SOBOE (shortness of breath on exertion): Start date: 02/26/21 Start time: 11:38 Status: Resolved Asessment and Plan: No SOB, Not reqiuring oxygen as above (3) Lung infiltrate: Start date: 02/26/21 Start time: 11:41 Status: Acute Asessment and Plan: Being treated for both UTI and pneumonia, though does not clinical appear to have this. Will continue treatment for total 14 day course (4) Essential hypertension: Start date: 02/26/21 Start time: 11:42 Status: Acute Asessment and Plan: continue home regimen (5) BPH (benign prostatic hyperplasia): Start date: 02/26/21 Start time: 11:58 Status: Chronic Asessment and Plan: appears it may be worse as above discussed with Dr. martins Discharge Plan Disposition Patient Disposition: HOME Condition: Stable Discharge Details Reason For Visit: ABDOMINAL PAIN INTRACTABLE Admit Date/Time: 02/24/21 19:20 Admit Provider: Jerad Martins Attending Provider: Jerad Martins Primary Care Provider: Lyndsey,[facility] Course Hospital Course: This is an 85 yo male with a PMH of DM/diet controlled, GI bleed, HTN, Spinal stenosis with neuropathy, on COPD/Asthma medications with dx of HINDS in chart, BPH. He initially presented earlier in the day of this admission with c/o a 4 day h/o abd pain. CTA of abd/pelvis was unremarkable. Dxd with a UTI and d/c'd to home on Levaquin. He presented back with abd pain that he now states is in the lower mid abd; sharp and crampy qualities. No emesis, hematemesis. He has a h/o constipation and recently noted a dark stool. He had also taken Pepto Bismol 2 days prior to presenting to the ED. Stool was heme negative. Urine was + for nitrities, WBCs, few bacteria. No dysuria or frequency. No pain in the perineum. Repeat CT abd/pelvis was negative for any acute findings, though there was a concern for RLL aspiration. CXR showed a medial R lung infiltrate. He denied any cough/sputum, F/C, increased SOB over his baseline. Covid test negative. He was admitted for IV antibiotics for his UTI and pain control. Over course of treatment he was found to have pseudomonas in his urine cx. Ceftr iaxone dcd and he was started on cefepime IV. Renal u/s revealed large amount PVR, though bladder scans only showing 150 ml. He has been afebrile no leukocytosis, no clinical sx of CAP, not requiring oxygen; though he will be covered for both lungs and UTI with cefpodoxime 400 mg bid x 14 days. Will insert caban catheter for home and leave in place. Have him follow up as an outpatient with Dr. Mccullough this week we will call Sunday to set up this appt. He will also have oxybutynin po for spasms. Pain is suprapubic, that comes and goes sounds mostly like spasms due to volume overload. He denies CP, SOB, N/V/D Home Meds and New Rx's Prescriptions: New oxybutynin chloride [Ditropan XL] 5 mg Tablet Extended Release 24hr 5 mg PO DAILY Qty: 14 RF: 0 oxycodone 10 mg Tablet 10 mg PO Q6H PRN PRNQty: 20 RF: 0 cefpodoxime 200 mg tablet 400 mg PO Q12H Qty: 28 RF: 0 Continued Linzess 290 mcg capsule 290 mcg PO DAILY PRNRF: 0 polyethylene glycol 3350 17 gram powder in packet 17 g PO DAILY PRNRF: 0 acetaminophen 500 MG tablet 1,000 mg PO Q4H PRN RF: 0 melatonin 3 MG tablet 3 mg PO HS RF: 0 finasteride 5 MG tablet 5 mg PO DAILY Qty: 90 RF: 3 diclofenac sodium [Voltaren] 100 GM gel 100 gm Topical BID MDD twice Qty: 1 RF: 2 Narcan 4 MG spray,non-aerosol 4 mg NS as directed 1 Days Qty: 2 RF: 0 fentanyl 1 EACH patch 72 hour 1 adh.patch Transdermal Q72H MDD 1 patch Q72 hours 30 Days Qty: 10 RF: 0 mirtazapine 30 MG tablet 30 mg PO HS RF: 0 magnesium 250 MG tablet 250 mg PO DAILY RF: 0 oxycodone 10 MG tablet 10 mg PO QID RF: 0 cyanocobalamin (vitamin B-12) 1,000 mcg Tablet 1,000 mcg PO DAILY RF: 0 tamsulosin 0.4 mg Capsule 0.4 mg PO HS RF: 0 losartan-hydrochlorothiazide 100-25 mg Tablet 1 tab PO DAILY RF: 0 albuterol sulfate [Ventolin HFA] 90 mcg/actuation Hfa Aerosol Inhaler 2 puff Inhalation Q6H PRNRF: 0 albuterol sulfate 2.5 mg /3 mL (0.083 %) Solution For Nebulization 2.5 mg Inhalation Q6H PRNRF: 0 gabapentin 600 mg tablet 600 mg PO TID RF: 0 famotidine 40 mg tablet 40 mg PO DAILY RF: 0 latanoprost [Xalatan] 2.5 ML drops 1 drp OU HS Qty: 0 RF: 0 cholecalciferol (vitamin D3) 1,000 UNITS tablet 1,000 units PO DAILY RF: 0 ipratropium-albuterol 0.5 mg-3 mg(2.5 mg base)/3 mL solution for nebulization 3 ml INHALATION DIRECTED RF: 0 buspirone 30 mg tablet 30 mg PO DAILY RF: 0 Trelegy Ellipta 100-62.5-25 mcg blister with device 1 inh INHALATION QAM RF: 0 Discontinued levofloxacin 750 mg tablet 750 mg PO DAILY 4 Days Qty: 4 RF: 0 Discharge Instructions Instructions: Enlarged Prostate (BPH) (DC), Urinary Tract Infection in Men (ED), Caban Catheter Placement and Care (DC) Additional Instructions: Follow up with Dr. Mccullough this week, we will make an appt for you on Sunday and call with day and time. Continue caban until you see Dr. Mccullough Take Antibiotic twice a day for 2 weeks Activity:: Activity as Tolerated Equipment/Supplies:: catheter Diet:: Low Sodium Discharge Orders Discharge Orders: Discharge Order (Routine); Ordered 02/26/21 Ordered By: Tuyet Gomez DS: Summary Time Spent with Patient providing and/or coordinating discharge services: Less than 30 minutes Status at Discharge Functional status at discharge: independent ambulation Overall status at discharge: patient is progressing back to baseline Mental Status: mental status grossly normal Speech and Movement: speech and movement normal Mood: congruent mood Affect: normal affect Exam Const General: cooperative and no acute distress Nutritional Appearance: overweight Orientation: alert and oriented x3 HENMT Head: normocephalic and atraumatic Eyes Sclera: sclerae normal Pupils: PERRL Resp Effort & Inspection: normal respiratory effort Auscultation: clear to auscultation bilaterally Cardio Rate: regular rate Rhythm: regular rhythm Heart Sounds: S1 normal and S2 normal GI Palpation: firm and tender suprapubicly; with no rebound tenderness Auscultation: normal bowel sounds Skin General skin exam: no rashes or lesions noted and other (R lovell with violacious discoloration.) Neuro General: no focal motor deficits Cognition: normal cognition Speech: speech normal Extrem General: no pedal edema and no calf tenderness Psych Mental Status: mental status grossly normal Speech and Movement: speech and movement normal Mood: congruent mood Affect: normal affect DS: Data Vitals/I&O Vitals and I&O: Vital Signs Temperature 36.6 C 02/26/21 11:00 Temperature Source Temporal Artery Scan 02/26/21 11:00 Pulse 74 02/26/21 11:00 Pulse Rhythm Regular 02/26/21 08:00 Respiratory Rate 18 02/26/21 11:00 Respiratory Effort Non-Labored 02/26/21 08:00 Respiratory Depth Normal 02/26/21 08:00 Respiratory Pattern Normal 02/26/21 08:00 Blood Pressure 138/83 02/26/21 11:00 Blood Pressure Mean 109 02/24/21 18:16 Blood Pressure Position Sitting 02/24/21 16:36 Pulse Oximetry 93 02/26/21 11:00 Oxygen Delivery Method Room Air 02/26/21 11:00 Oxygen Flow Rate 0 02/26/21 11:00 Pain Level 3 02/26/21 11:02 Comment 02/26/21 03:16 Intake & Output 02/25/21 02/25/21 02/26/21 11:59 23:59 11:59 Intake Total 1773.333 / 4121.334 2348.001 / 4121.334 2754.667 / 2754.667 Output Total 1250 / 3075 1825 / 3075 2400 / 2400 Balance 523.333 / 1046.334 523.001 / 1046.334 354.667 / 354.667 Weight 93 kg 90.4 kg Intake: IV 573.333 / 1121.334 548.001 / 1121.334 914.667 / 914.667 Oral 1200 / 3000 1800 / 3000 1840 / 1840 Output: Urine 1250 / 3075 1825 / 3075 2400 / 2400 Other: Urine Color Yellow Dark Red [place] Urine Appearance Clear Cloudy Clear Urine Odor Normal None Normal Comment Void x1 in the urinal. Post void residual Void x1 in the urinal. Voiding Methods Urinal Urinal Urinal Data Completed and Pending Completed studies during hospitalization [Text1]: Exam(s) a RAD:XR portable chest AP Exam(s) XR PORTABLE CHEST AP EXAM: XR PORTABLE CHEST AP CLINICAL HISTORY: ? pna on abd ct TECHNIQUE: 2D digital imaging was performed. COMPARISON: No exams were available for comparison FINDINGS: MEDIASTINUM: Normal. HEART: Normal. PULMONARY VASCULATURE: Normal. There is tortuosity of the thoracic aorta. LUNGS: There is an infiltrate in the right lung base medially. The lungs are otherwise clear. PLEURAL SPACE: No pleural effusion or pneumothorax. BONE:Within normal limits for the patient's age. OTHER FINDINGS:Normal. IMPRESSION: Right basilar infiltrate. Exam(s) PROCEDURE INFORMATION: Exam: XR Chest Exam date and time: 02/24/2021 7:04 PM Age: 85 years old Clinical indication: Abnormal findings; Abnormal radiologic exam of lung or chest; Patient HX: Abnormal abd/pel CT TECHNIQUE: Imaging protocol: XR of the chest. Views: 1 view. COMPARISON: CR XR CHEST 2V PA LATERAL 04/21/2019 9:55 AM FINDINGS: Lungs: Medial right lower lung infiltrate. The right upper lobe and left lung is clear. Pleural spaces: Unremarkable. No pleural effusion. No pneumothorax. Heart/Mediastinum: Unremarkable. No cardiomegaly. Vasculature: Tortuous aorta. Bones/joints: Unremarkable. IMPRESSION: Medial right lower lung infiltrate. Exam(s) a US:US renal Exam(s) US RENAL EXAM: US RENAL CLINICAL HISTORY: supra pubic pain, r/o nephroliathasis. TECHNIQUE: Jack scale, color and spectral Doppler were used. COMPARISON: No exams were available for comparison FINDINGS: Renal size in cm: Right: 9.9. Left: 11.4. Echogenicity: Normal. Hydronephrosis: No. Cyst or mass: No. Nephrolithiasis: No. Other findings: None. Bladder:Normal. Ureteral jets: Right: Visualized and unremarkable. Left: Visualized and unremarkable. Prevoid vol:395 cc Postvoid vol:120 cc Prostate: 96 cc Renal color flow: Symmetric and within normal limits. IMPRESSION: 1. No evidence of nephrolithiasis or hydronephrosis. 2. Marked prostatic enlargement. 3. Large postvoid urinary bladder volume. Labs on day of discharge: Labs from last 24 hours 02/26/21 06:20 WBC 8.44 RBC 3.94 L Hgb 12.6 L Hct 36.8 L MCV 93.4 MCH 32.0 MCHC 34.2 RDW 12.1 Plt Count 324 MPV 10.0 PFSH Medical History Diabetes mellitus Diverticula of colon GERD (gastroesophageal reflux disease) GI bleed Hemorrhoid Hypertension Neuropathy Obesity Osteoarthritis Spinal stenosis Surgical History Endoscopic Carpal Tunnel release (05/04/15) Right by Dr. Ayala Extraction of cataract (02/15/16) [place] R with IOL; and L as well, Dr. Dickinson in [place] Repair of inguinal hernia (08/31/11) Right sided with orchiectomy Rotator Cuff Repair (~1996) Right spinal stenosis (08/15/01) L foot drop result; L4 laminectomy and L4-5 R discectomy, Dr Campbell; second procedure at [place], [place] approx 02/2017 L1[place]2 [place] [facility] [place] L foot drop result; L4 laminectomy and L4-5 R discectomy, Dr Campbell; second procedure at [place], [place] approx 02/2017 L1-L2 Laminectomy Dr. Cortes [facility] Total replacement of hip (~1999) Right hip, later revised in 2005 left side 2006 Family History Mother , CVA at age 85. Diabetes age 50 Essential hypertension Stroke Uterine cancer Father , Colon CA at age 87. Colon cancer Sister Breast cancer Sister Ovarian cancer Sister Ovarian cancer Sister No problems noted. Sister No problems noted. Sister No problems noted. Sister No problems noted. Sister No problems noted. Brother Diabetes Brother No problems noted. Brother No problems noted. Social History Smoking/Tobacco Use Status: Never Smoking risk assessment performed?: Yes Alcohol Intake: never Drug use: Never Substance use type: does not use Do you feel safe at home: Yes Do you feel safe in your relationship?: Yes
[2021-02-26] MEDS: Oxybutynin-CR 5 MG TABCR PO (11:51)
[2021-02-26] MEDS: Lidocaine 2% Jelly 11 ML SYR UR (12:19)
== END 2021-02-26 14:43 | disposition home or self-care (01) ==
LOC: ER 16:32 → MS 20:12
PROVIDERS: Admitting Provider Family Medicine; Emergency Provider Student in an Organized Health Care Education/Training Program; PCP Family Medicine; Visit Provider Family Medicine
DX: N39.0 Urinary tract infection, site not specified (principal); J18.9 Pneumonia, unspecified organism; Z20.822 Contact with and (suspected) exposure to COVID-19; N40.0 Benign prostatic hyperplasia without lower urinary tract symptoms; I10 Essential (primary) hypertension; M48.00 Spinal stenosis, site unspecified; M54.10 Radiculopathy, site unspecified; J44.9 Chronic obstructive pulmonary disease, unspecified; K21.9 Gastro-esophageal reflux disease without esophagitis; B96.5 Pseudomonas (aeruginosa) (mallei) (pseudomallei) as the cause of diseases classified elsewhere; E11.42 Type 2 diabetes mellitus with diabetic polyneuropathy
CPT/HCPCS: 36415; 76770; 80048; 80053; 83690; 85027; 87635; 94640; 96361; 96374; 99285; 71045; 74177; 83605; 84443; 85025; 99217; 99220; 99225; 99232; 99239; G0378; J0696; J1644; J3490

== ENCOUNTER 2021-02-27 06:24 | Emergency (ER) | payer OTHER, SELFPAY ==
[2021-02-27] VITALS (25 sets, daily range): BP systolic 127–152; BP diastolic 55–98; PULSE 62–93; RESP 16–18; TEMP 36.6–36.8; O2SAT 93–98
--- NOTE | 2021-02-27 06:29 | ED.GENADUL_ITS ---
Discharge Plan Disposition Patient Disposition: [facility] Condition: Stable Discharge Details Clinical Impression: Dislodged Caban catheter Primary Care Provider: Yvonne Solorio ED Provider: Andre Post Home Meds and New Rx's Prescriptions: Continued Linzess 290 mcg capsule 290 mcg PO DAILY PRNRF: 0 polyethylene glycol 3350 17 gram powder in packet 17 g PO DAILY PRNRF: 0 acetaminophen 500 MG tablet 1,000 mg PO Q4H PRN RF: 0 melatonin 3 MG tablet 3 mg PO HS RF: 0 finasteride 5 MG tablet 5 mg PO DAILY Qty: 90 RF: 3 diclofenac sodium [Voltaren] 100 GM gel 100 gm Topical BID MDD twice Qty: 1 RF: 2 Narcan 4 MG spray,non-aerosol 4 mg NS as directed 1 Days Qty: 2 RF: 0 fentanyl 1 EACH patch 72 hour 1 adh.patch Transdermal Q72H MDD 1 patch Q72 hours 30 Days Qty: 10 RF: 0 mirtazapine 30 MG tablet 30 mg PO HS RF: 0 magnesium 250 MG tablet 250 mg PO DAILY RF: 0 oxycodone 10 MG tablet 10 mg PO QID RF: 0 cyanocobalamin (vitamin B-12) 1,000 mcg Tablet 1,000 mcg PO DAILY RF: 0 tamsulosin 0.4 mg Capsule 0.4 mg PO HS RF: 0 losartan-hydrochlorothiazide 100-25 mg Tablet 1 tab PO DAILY RF: 0 albuterol sulfate [Ventolin HFA] 90 mcg/actuation Hfa Aerosol Inhaler 2 puff Inhalation Q6H PRNRF: 0 albuterol sulfate 2.5 mg /3 mL (0.083 %) Solution For Nebulization 2.5 mg Inhalation Q6H PRNRF: 0 gabapentin 600 mg tablet 600 mg PO TID RF: 0 famotidine 40 mg tablet 40 mg PO DAILY RF: 0 oxybutynin chloride [Ditropan XL] 5 mg Tablet Extended Release 24hr 5 mg PO DAILY Qty: 14 RF: 0 oxycodone 10 mg Tablet 10 mg PO Q6H PRN PRNQty: 20 RF: 0 cefpodoxime 200 mg tablet 400 mg PO Q12H Qty: 28 RF: 0 latanoprost [Xalatan] 2.5 ML drops 1 drp OU HS Qty: 0 RF: 0 cholecalciferol (vitamin D3) 1,000 UNITS tablet 1,000 units PO DAILY RF: 0 ipratropium-albuterol 0.5 mg-3 mg(2.5 mg base)/3 mL solution for nebulization 3 ml INHALATION DIRECTED RF: 0 buspirone 30 mg tablet 30 mg PO DAILY RF: 0 Trelegy Ellipta 100-62.5-25 mcg blister with device 1 inh INHALATION QAM RF: 0 Discharge Instructions Additional Instructions: Resume medications as before. Caban care as before. Follow-up with primary care and Dr. Mccullough has scheduled. Return to ED if further problems. Medical Decision Making <Sharath Conrad MD - Last Filed: 02/27/21 08:11> Patient discharged home yesterday with Caban in place on antibiotics. Catheter inadvertently pulled out overnight. Will need to replace here continue antibiotics and have follow-up with Dr. Mccullough as previously planned. Nurse noted that felt like something present in shaft of penis. Patient had brought caban and bag in from home. Caban examined and noted to be broken. Patient has blown up balloon in bladder with catheter passing through prostate but broken about mid shaft of penis. He is draining urine. Call Placed to Dr. Mccullough but no return call. Singed out to Dr. Post who will discuss with [facility]. Medical Records Medical records reviewed: Yes I reviewed the patient's medical records. <Andre Post MD - Last Filed: 02/27/21 09:19> Spoke with Dr. Pace from urology who requested imaging to confirm it was still in and on ct still does have the caban in. I could not remove at bedside. Spoke with Dr. Elkins who accepts to their ED for evaluation. Patient updated and agrees with plan. CT does show evidence of infection and is being treated with antibiotics currently Imaging Data Radiologic Study: Attestation: I personally reviewed and interpreted this imaging study as follows: Imaging: CT Scan Radiologist's impression: IMPRESSION: 1. 6 mm metallic density in the bladder. Series 2, image 30. Series 4 image 29. This could represent segment of a catheter in the appropriate clinical setting.. 2. The bladder wall measures 8 mm. This is nonspecific and may represent inflammation or infection. Neoplastic process and neurogenic bladder are included in the differential. Recommend urology consult. HPI <Sharath Conrad MD - Last Filed: 02/27/21 08:11> General Mode of arrival: wheelchair . Date/Time Provider Initiated Documentation: 02/27/21 06:29 . Limitations to Documentation: no limitations . Information obtained by: patient and RN notes reviewed . HPI Narrative: Patient presents to ED after accidentally pulling his Caban out overnight. Patient discharged from the hospital yesterday with Caban in place for treatment of UTI, BPH, urinary retention. He does not know how he managed to pull the catheter out overnight. He is dribbling urine output at this time. Otherwise feels okay. Related Data Home Medications Medication Instructions Recorded Confirmed acetaminophen 1,000 mg PO Q4H PRN tab-cap 07/09/15 02/27/21 melatonin 3 mg PO HS 03/07/17 02/27/21 latanoprost [Xalatan] 1 drp OU HS #0 btl 03/09/17 02/27/21 finasteride 5 mg PO DAILY #90 tab 08/14/17 02/27/21 diclofenac sodium [Voltaren] 100 gm TOPICAL BID #1 script MDD 09/11/17 02/27/21 twice Narcan 4 mg NS as directed 1 Days #2 spray 01/23/18 02/27/21 cholecalciferol (vitamin D3) 1,000 units PO DAILY 03/14/18 02/27/21 fentanyl 1 adh.patch TRANSDERMAL Q72H 30 03/26/18 02/27/21 Days #10 adh.patch MDD 1 patch Q72 hours magnesium 250 mg PO DAILY 06/13/18 02/27/21 mirtazapine 30 mg PO HS 06/13/18 02/27/21 oxycodone 10 mg PO QID 06/13/18 02/27/21 cyanocobalamin (vitamin B-12) 1,000 mcg PO DAILY 07/13/18 02/27/21 albuterol sulfate 2.5 mg INHALATION Q6H PRN 04/21/19 02/27/21 albuterol sulfate [Ventolin HFA] 2 puff INHALATION Q6H PRN 04/21/19 02/27/21 losartan-hydrochlorothiazide 1 tab PO DAILY 04/21/19 02/27/21 tamsulosin 0.4 mg PO HS 04/21/19 02/27/21 linaclotide 290 mcg capsule 290 mcg PO DAILY PRN cap 05/22/19 02/27/21 polyethylene glycol 3350 17 gram 17 g PO DAILY PRN gm 05/22/19 02/27/21 oral powder packet Sin Blancas 1 inh INHALATION QAM 02/24/21 02/27/21 buspirone 30 mg PO DAILY 02/24/21 02/27/21 ipratropium-albuterol 3 ml INHALATION DIRECTED 02/24/21 02/27/21 famotidine 40 mg PO DAILY 02/25/21 02/27/21 gabapentin 600 mg PO TID 02/25/21 02/27/21 cefpodoxime 400 mg PO Q12H #28 tab 02/26/21 02/27/21 oxybutynin chloride [Ditropan XL] 5 mg PO DAILY #14 tab 02/26/21 02/27/21 oxycodone 10 mg PO Q6H PRN PRN #20 tab 02/26/21 02/27/21 Previous Rx's Medication Instructions Recorded latanoprost [Xalatan] 1 drp OU HS #0 btl 03/09/17 finasteride 5 mg PO DAILY #90 tab 08/14/17 diclofenac sodium [Voltaren] 100 gm TOPICAL BID #1 script MDD 09/11/17 twice Narcan 4 mg NS as directed 1 Days #2 spray 01/23/18 fentanyl 1 adh.patch TRANSDERMAL Q72H 30 03/26/18 Days #10 adh.patch MDD 1 patch Q72 hours cefpodoxime 400 mg PO Q12H #28 tab 02/26/21 oxybutynin chloride [Ditropan XL] 5 mg PO DAILY #14 tab 02/26/21 oxycodone 10 mg PO Q6H PRN PRN #20 tab 02/26/21 Allergies Allergy/AdvReac Type Severity Reaction Status Date / Time aspirin AdvReac Intermediate GI Bleeding Unverified 02/27/21 07:35 NSAIDS (Non-Steroidal AdvReac Intermediate GI Bleeding Unverified 02/27/21 07:35 Anti-Inflamma General DIAZ: 3 Review of Systems <Sharath Conrad MD - Last Filed: 02/27/21 08:11> Narrative: As documented in HPI otherwise negative as below. Const: no fever, chills, weakness Resp: no cough, SOB, pleuritic pain CV: no CP, diaphoresis, edema, syncope GI: no abdominal pain, nausea, vomiting, diarrhea Neuro: no headache, numbness, focal weakness, confusion PFSH <Sharath Conrad MD - Last Filed: 02/27/21 08:11> Medical History Diabetes mellitus Diverticula of colon GERD (gastroesophageal reflux disease) GI bleed Hemorrhoid Hypertension Neuropathy Obesity Osteoarthritis Spinal stenosis Surgical History Endoscopic Carpal Tunnel release (05/04/15) Right by Dr. Ayala Extraction of cataract (02/15/16) [place] R with IOL; and L as well, Dr. Dickinson in [place] Repair of inguinal hernia (08/31/11) Right sided with orchiectomy Rotator Cuff Repair (~1996) Right spinal stenosis (08/15/01) L foot drop result; L4 laminectomy and L4-5 R discectomy, Dr Campbell; second procedure at [place], [place] approx 02/2017 L1-L2 Laminectomy Dr. Cortes [facility] spinal stenosis (~2005) L foot drop result; L4 laminectomy and L4-5 R discectomy, Dr Campbell; second procedure at [place], [place] approx 02/2017 L1-L2 Laminectomy Dr. 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 Diabetes age 50 Essential hypertension Stroke Uterine cancer Father , Colon CA at age 87. Colon cancer Sister Breast cancer Sister Ovarian cancer Sister Ovarian cancer Sister No problems noted. Sister No problems noted. Sister No problems noted. Sister No problems noted. Sister No problems noted. Brother Diabetes Brother No problems noted. Brother No problems noted. Social History Smoking/Tobacco Use Status: Never Smoking risk assessment performed?: Yes Alcohol Intake: never Drug use: Never Substance use type: does not use Do you feel safe at home: Yes Do you feel safe in your relationship?: Yes Exam <Sharath Conrad MD - Last Filed: 02/27/21 08:11> Narrative Exam Narrative: Const: WDWN elderly male in NAD. HEENT: NC/AT. Normal facial exam. Eyes: Normal conjunctiva and sclera. Neck: Supple. Trachea midline. Lungs: Normal respiratory effort. : Normal male genitalia. Small amount of blood noticed at the meatus. Neuro: A+O x 3. Normal speech, mentation. Cranial nerves II - XII grossly intact. No gross motor or sensory deficit. Sign Out <Sharath Conrad MD - Last Filed: 02/27/21 08:11> Sign Out Data: Sign Out Comment: pending discussion with urology Last updated by Sharath Conrad MD at 02/27/21 08:07
[2021-02-27] MEDS: Lidocaine 2% Jelly 6 ML SYR (07:00)
--- NOTE | 2021-02-27 08:15 | DI.CT_ITS ---
Exam(s) CT PELVIC WO EXAM: CT PELVIC WO CLINICAL HISTORY: ?retained caban in bladder. TECHNIQUE: Imaging Protocol: Axial computed tomography images with coronal and sagittal reformatted images were created and reviewed. CONTRAST MATERIAL: Oral: yes / no COMPARISON: CT CT ABDOMEN PELVIS W from 02/24/2021 FINDINGS: PELVIS: Abdominal Aorta: Abdominal portion non-dilated. Bowel: No obstruction or bowel wall thickening. There is diverticulosis of the sigmoid colon but no e vidence of acute diverticulitis. No evidence of acute appendicitis. Peritoneal Cavity: No ascites, collection or mesenteric inflammatory response. Soft Tissues: Unremarkable. Bladder: Incomplete distension. The bladder wall is thickened up to 8 mm. A Caban catheter is seen in the urinary bladder. The tubing extends to the penile urethra but appears to end before the tip o f the penis. There is a 6 mm metallic density in the dependent portion of the urinary bladder. (Ser ies 4, image 29 and series 2, image 30). Reproductive Organs: Unremarkable as visualized. Lymph Nodes: Within normal limits. Bones: There is artifact from the patient's bilateral total hip replacements. IMPRESSION: 1. The catheter within the urinary bladder. The catheter tubing extends throughout the penile urethr a but appears to in before the tip of the penis. Please correlate clinically. 2. Metallic density within the urinary bladder. This may represent a foreign body. 3. Diffuse thickening of the bladder wall. While this may be due to underdistention, infectious or i nflammatory process should be considered. Neoplasm and neurogenic bladder are also included in the d ifferential. Urology consult should be considered. RADIATION DOSE DELIVERED: 488.5mGy.cmTotal DLP 488.5mGy.cmTotal DLP DATA REPOSITORY: All CT scans at this facility are submitted to the National Radiology Data Registry (NRDR) Dose Index Registry (DIR) with the [employer] ([employer]). RADIATION OPTIMIZATION: All CT scans at this facility use at least one of these dose optimization te chniques: automated exposure control; mA and/or kV adjustment per patient size (includes targeted exa ms where dose is matched to clinical indication); or iterative reconstruction.
--- NOTE | 2021-02-27 08:55 | DI.VRAD_ITS ---
Addendum created by Memo Carter MD on 02/27/2021 8:59:07 AM EDT: Addendum:pt. Jamie Aguilar. Dr. Post confirmed that he has seen the report and has no questions Initial report created on 02/27/2021 8:55:32 AM EDT: PROCEDURE INFORMATION: Exam: CT Pelvis Without Contrast Exam date and time: 02/27/2021 8:27 AM Age: 85 years old Clinical indication: Device placement; Bladder; Other: FX catheter TECHNIQUE: Imaging protocol: Computed tomography images of the pelvis without contrast. COMPARISON: CT ABDOMEN PELVIS W 02/24/2021 5:51 PM FINDINGS: Stomach and bowel: Diverticulosis of the rectosigmoid. No diverticulitis Appendix: No evidence of appendicitis. Intraperitoneal space: Unremarkable. No free air. No significant fluid collection. Lymph nodes: Unremarkable. No enlarged lymph nodes. Urinary bladder: Garcia catheter in the bladder .. 6 mm metallic density in the bladder. Series 2, image 30. Series 4 image 29. This could represent segment of a catheter in the appropriate clinical setting.. The bladder wall measures 8 mm. This is nonspecific and may represent inflammation or infection. Neoplastic process and neurogenic bladder are included in the differential. Recommend urology consult. Reproductive: Normal as visualized. Bones/joints: Bilateral total hip replacements cause significant artifact in the pelvis. Laminectomy at L5 Soft tissues: Unremarkable. IMPRESSION: 1. 6 mm metallic density in the bladder. Series 2, image 30. Series 4 image 29. This could represent segment of a catheter in the appropriate clinical setting.. 2. The bladder wall measures 8 mm. This is nonspecific and may represent inflammation or infection. Neoplastic process and neurogenic bladder are included in the differential. Recommend urology consult. Dictated and Authenticated by: Memo Carter MD. Ordering:CHRISTIE Powell MD
--- NOTE | 2021-02-27 10:06 | NUR.NOTE ---
Nursing Note: Urine culture result with sensitivities was faxed to [facility]. F [phone] Lucia Ireland
--- NOTE | 2021-02-27 16:00 | NUR.NOTE ---
Nursing Note: This afternoon I found paperwork of the patient's that was from his admission discharge. I have mailed the information to the patient's along with a letter of apology that it was left behind. Lucia Ireland
== END 2021-02-27 09:54 | disposition short-term general hospital (02) ==
PROVIDERS: Emergency Provider Emergency Medicine; PCP Family Medicine
DX: T83.028A Displacement of other urinary catheter, initial encounter (principal)
CPT/HCPCS: 99285; 72192; 99283

== ENCOUNTER 2021-03-02 08:43 | Emergency (ER) | payer OTHER, SELFPAY ==
[2021-03-02] VITALS (29 sets, daily range): BP systolic 122–145; BP diastolic 56–95; PULSE 78–102; RESP 12–32; TEMP 36.5; O2SAT 93–95
--- NOTE | 2021-03-02 09:08 | ED.GENADUL_ITS ---
Discharge Plan Disposition Patient Disposition: HOME Condition: Improving Discharge Details Clinical Impression: Hematuria, Acute UTI Primary Care Provider: Yvonne Solorio ED Provider: Fabiano Thorpe Home Meds and New Rx's Prescriptions: New phenazopyridine [Pyridium] 100 mg tablet 100 mg PO TID Qty: 6 RF: 0 Continued Linzess 290 mcg capsule 290 mcg PO DAILY PRNRF: 0 acetaminophen 500 MG tablet 1,000 mg PO Q4H PRN RF: 0 melatonin 3 MG tablet 3 mg PO HS PRNRF: 0 diclofenac sodium [Voltaren] 100 GM gel 100 gm Topical BID MDD twice Qty: 1 RF: 2 Narcan 4 MG spray,non-aerosol 4 mg NS as directed 1 Days Qty: 2 RF: 0 fentanyl 1 EACH patch 72 hour 1 adh.patch Transdermal Q72H MDD 1 patch Q72 hours 30 Days Qty: 10 RF: 0 mirtazapine 30 MG tablet 30 mg PO HS RF: 0 magnesium 250 MG tablet 250 mg PO DAILY RF: 0 oxycodone 10 MG tablet 10 mg PO QID RF: 0 tamsulosin 0.4 mg Capsule 0.4 mg PO HS RF: 0 losartan-hydrochlorothiazide 100-25 mg Tablet 1 tab PO DAILY RF: 0 albuterol sulfate 2.5 mg /3 mL (0.083 %) Solution For Nebulization 2.5 mg Inhalation Q6H PRNRF: 0 gabapentin 600 mg tablet 600 mg PO TID RF: 0 famotidine 40 mg tablet 40 mg PO DAILY RF: 0 prednisone 10 mg Tablet See Rx Instructions .ROUTE .COMPLEX RF: 0 amitriptyline 10 mg Tablet 10 mg PO HS RF: 0 dextromethorphan-guaifenesin [Mucinex DM] 60-1,200 mg Tablet Extended Release 12 Hr 1 tab PO BID PRNRF: 0 polyethylene glycol 3350 17 gram/dose powder 17 g PO DAILY PRN (Reason: Constipation) RF: 0 albuterol sulfate [ProAir HFA] 90 mcg/actuation HFA aerosol inhaler 2 inh INHALATION Q4H PRNRF: 0 ondansetron 4 mg Tablet,Disintegrating 4 mg PO TID PRNRF: 0 dextromethorphan-guaifenesin 20-400 mg Tablet 1 tab PO Q6H RF: 0 ciprofloxacin HCl 500 mg tablet 500 mg PO BID RF: 0 bisacodyl 10 mg Suppository 10 mg MA DAILY PRNRF: 0 cetirizine 10 mg Tablet 10 mg PO DAILY RF: 0 triamcinolone acetonide 0.1 % cream 1 applic TOPICAL DAILY RF: 0 finasteride 5 MG tablet 5 mg PO HS RF: 0 latanoprost [Xalatan] 2.5 ML drops 1 drp OU HS Qty: 0 RF: 0 cholecalciferol (vitamin D3) 1,000 UNITS tablet 1,000 units PO DAILY RF: 0 ipratropium-albuterol 0.5 mg-3 mg(2.5 mg base)/3 mL solution for nebulization 3 ml INHALATION DIRECTED RF: 0 buspirone 30 mg tablet 30 mg PO DAILY RF: 0 Trelegy Ellipta 100-62.5-25 mcg blister with device 1 inh INHALATION QAM RF: 0 Discharge Instructions Instructions: Urinary Tract Infection in Men (ED), Hematuria (ED) Additional Instructions: Please follow-up with Dr. Mccullough in the hospital specialty clinics tomorrow at 1 PM. Avoid the use of aspirin, Advil or Motrin/ibuprofen. Continue your prescribed medications including ciprofloxacin. Return if you have inability to urinate, develop a fever, or any other acute concerns. May continue the prescribed Pyridium as needed for pain with urination. Medical Decision Making 85-year-old male who was recently admitted for UTI, had Garcia catheter placement but was somewhat traumatic, and then the patient had dislodgment/rupture of the catheter device with remnant in the bladder for which she was transferred to [facility], had cystoscopy with retrieval of Garcia catheter remnant, and was discharged home on February 27 on ciprofloxacin. He has had persistent dysuria with burning upon urination, production of bloody urine with some clots. Has not noted any urinary obstruction. Is not had a fever. He has had worsening diarrhea that has been going on for days. Reassuring exam , patient stable, afebrile, no active bleeding at this time. IV access established, stool, C. difficile PCR, blood and urinalysis obtained. Patient growing Pseudomonas that is sensitive to ciprofloxacin from urine culture on February 24. Today's labs no white count 8, hematocrit 40, platelets 329. INR 1.1. Chemistries reassuring with BUN 24, creatinine 1.1. Urinalysis concentrated with specific gravity 1.03. Large blood present with leuk esterase, white blood cells and red blood cells present. I discussed the case with on-call urology, patient improved following the administration of high radium. We will continue ciprofloxacin as his culture shows sensitivities to this. He will follow-up with urology tomorrow at 1 PM. He may continue Pyridium in the interim. He is stable and improved at this time. HPI General Mode of arrival: ambulatory . Date/Time Provider Initiated Documentation: 03/02/21 08:44 . Limitations to Documentation: no limitations . Information obtained by: patient . History of Present Illness 85 year old M presents to the emergency department with the chief complaint of Dysuria and hematuria, described as moderate, and is localized to the pelvis and genitals. Patient reports no radiation. Patient started experiencing this day(s) and it has been intermittent. No relieving factors improve symptom(s), No exacerbating factors reported . Patient notes denies fever/chills, malaise and nausea/vomiting. Patient did receive the following treatments prior to arrival, other (Ciprofloxacin) Related Data Home Medications Medication Instructions Recorded Confirmed acetaminophen 1,000 mg PO Q4H PRN tab-cap 07/09/15 03/02/21 melatonin 3 mg PO HS PRN 03/07/17 03/02/21 latanoprost [Xalatan] 1 drp OU HS #0 btl 03/09/17 03/02/21 diclofenac sodium [Voltaren] 100 gm TOPICAL BID #1 script MDD 09/11/17 03/02/21 twice Narcan 4 mg NS as directed 1 Days #2 spray 01/23/18 03/02/21 cholecalciferol (vitamin D3) 1,000 units PO DAILY 03/14/18 03/02/21 fentanyl 1 adh.patch TRANSDERMAL Q72H 30 03/26/18 03/02/21 Days #10 adh.patch MDD 1 patch Q72 hours magnesium 250 mg PO DAILY 06/13/18 03/02/21 mirtazapine 30 mg PO HS 06/13/18 03/02/21 oxycodone 10 mg PO QID 06/13/18 03/02/21 albuterol sulfate 2.5 mg INHALATION Q6H PRN 04/21/19 03/02/21 losartan-hydrochlorothiazide 1 tab PO DAILY 04/21/19 03/02/21 tamsulosin 0.4 mg PO HS 04/21/19 03/02/21 linaclotide 290 mcg capsule 290 mcg PO DAILY PRN cap 05/22/19 03/02/21 Trelegy Ellipta 1 inh INHALATION QAM 02/24/21 03/02/21 buspirone 30 mg PO DAILY 02/24/21 03/02/21 ipratropium-albuterol 3 ml INHALATION DIRECTED 02/24/21 03/02/21 famotidine 40 mg PO DAILY 02/25/21 03/02/21 gabapentin 600 mg PO TID 02/25/21 03/02/21 albuterol sulfate [ProAir HFA] 2 inh INHALATION Q4H PRN 03/02/21 03/02/21 amitriptyline 10 mg PO HS 03/02/21 03/02/21 bisacodyl 10 mg MA DAILY PRN 03/02/21 03/02/21 cetirizine 10 mg PO DAILY 03/02/21 03/02/21 ciprofloxacin HCl 500 mg PO BID 03/02/21 03/02/21 dextromethorphan-guaifenesin 1 tab PO Q6H 03/02/21 03/02/21 dextromethorphan-guaifenesin 1 tab PO BID PRN 03/02/21 03/02/21 [Mucinex DM] finasteride 5 mg PO HS 03/02/21 03/02/21 ondansetron 4 mg PO TID PRN 03/02/21 03/02/21 phenazopyridine [Pyridium] 100 mg PO TID #6 tab 03/02/21 polyethylene glycol 3350 17 g PO DAILY PRN 03/02/21 03/02/21 prednisone See Rx Instructions .ROUTE .COMPLEX 03/02/21 03/02/21 triamcinolone acetonide 1 applic TOPICAL DAILY 03/02/21 03/02/21 Previous Rx's Medication Instructions Recorded latanoprost [Xalatan] 1 drp OU HS #0 btl 03/09/17 diclofenac sodium [Voltaren] 100 gm TOPICAL BID #1 script MDD 09/11/17 twice Narcan 4 mg NS as directed 1 Days #2 spray 01/23/18 fentanyl 1 adh.patch TRANSDERMAL Q72H 30 03/26/18 Days #10 adh.patch MDD 1 patch Q72 hours phenazopyridine [Pyridium] 100 mg PO TID #6 tab 03/02/21 Allergies Allergy/AdvReac Type Severity Reaction Status Date / Time aspirin AdvReac Intermediate GI Bleeding Unverified 03/02/21 08:54 NSAIDS (Non-Steroidal AdvReac Intermediate GI Bleeding Unverified 03/02/21 08:54 Anti-Inflamma General Stated Complaint: Urinary DIAZ: 3 Review of Systems Narrative: No fever, chills. Discharge from [facility] on February 27. On ciprofloxacin. 6 systems reviewed and otherwise negative [facility] Medical History Diabetes mellitus Diverticula of colon GERD (gastroesophageal reflux disease) GI bleed Hemorrhoid Hypertension Neuropathy Obesity Osteoarthritis Spinal stenosis Surgical History Endoscopic Carpal Tunnel release (05/04/15) Right by Dr. Ayala Extraction of cataract (02/15/16) [place] R with IOL; and L as well, Dr. Dickinson in [place] Repair of inguinal hernia (08/31/11) Right sided with orchiectomy Rotator Cuff Repair (~1996) Right spinal stenosis (08/15/01) L foot drop result; L4 laminectomy and L4-5 R discectomy, Dr Campbell; second procedure at [place], [place] approx 02/2017 L1-L2 Laminectomy Dr. Cortes [facility] [place] spinal stenosis (~2005) L foot drop result; L4 laminectomy and L4-5 R discectomy, Dr Campbell; second procedure at [place], [place] approx 02/2017 L1-L2 Laminectomy Dr. Cortes [facility] [place] Total replacement of hip (~1999) Right hip, later revised in 2005 left side 2006 Family History Mother , CVA at age 85. Diabetes age 50 Essential hypertension Stroke Uterine cancer Father , Colon CA at age 87. Colon cancer Sister Breast cancer Sister Ovarian cancer Sister Ovarian cancer Sister No problems noted. Sister No problems noted. Sister No problems noted. Sister No problems noted. Sister No problems noted. Brother Diabetes Brother No problems noted. Brother No problems noted. Social History Smoking/Tobacco Use Status: Never Smoking risk assessment performed?: Yes Alcohol Intake: never Drug use: Never Substance use type: does not use Do you feel safe at home: Yes Do you feel safe in your relationship?: Yes Exam Narrative Exam Narrative: GEN: awake, alert, oriented 3. Pleasant, well groomed, interactive. HEAD: Normocephalic, atraumatic ENT: Mucous membranes moist, oropharynx unremarkable, External ear exam unremark able EYES: PERRL, EOMI NECK: Full ROM, no COLTON, no menigismus CHEST/RESP: Nontender, clear to auscultation bilateral, no wheeze/rhonchi/rales CARDIOVASCULAR: RRR, no murmur, rub evan. 2+ Rad pulse bilateral ABDOMEN: Soft, nontender, no mass. +Bowel sounds, uncircumcised penis, no blood at urethral meatus. Unremarkable exam. EXT: Full ROM, no edema, no rash Neuro: Grossly normal neurologic exam, conversant, interactive. Psych: Speech fluent, thoughts congruent, affect normal Course Vital Signs Vital signs: Vital Signs Temperature 36.5 C 03/02/21 08:51 Pulse 95 H 03/02/21 08:51 Respiratory Rate 22 03/02/21 08:51 Blood Pressure 145/95 H 03/02/21 08:51 Pulse Oximetry 94 03/02/21 08:51 Temperature 36.5 C 03/02/21 08:51 Temperature Source Skin 03/02/21 08:51 Pulse 95 H 03/02/21 08:51 Respiratory Rate 22 03/02/21 08:51 Respiratory Effort Non-Labored 03/02/21 08:55 Blood Pressure 145/95 H 03/02/21 08:51 Blood Pressure Position Supine 03/02/21 08:51 Pulse Oximetry 94 03/02/21 08:51 Oxygen Delivery Method Room Air 03/02/21 08:51 Oxygen Flow Rate 0 03/02/21 08:51 Pain Level 10 03/02/21 08:59
[2021-03-02] MEDS: Normal Saline 1,000 ML 75 ML IV (09:24)
[2021-03-02 09:35] LABS: Abs Immature Grans 0.03 10^3/uL (0.0-0.06); Absolute Eosinophil Count 0.42 10^3/uL (0.0-0.7); Absolute Monocyte Count 0.79 10^3/uL (0.1-0.8); Absolute Neutrophil Count 5.59 10^3/uL (1.2-6.7); Basophils % 1.2; Eosinophils % 5.1; HCT 40.8 % (40.0-50.0); HGB 13.7 g/dL (13.5-17.5); Immature Grans % 0.4; Lymphocytes % 15.8; MCH 31.9 pg (27.0-33.0); MCHC 33.6 % (32.0-36.0); MCV 94.9 fL (80-95); MPV 10.1 fL (8.0-11.0); Monocytes % 9.6; Neutrophils % 67.9; Nucleated RBC 0 %; Platelet Count 329 10^3/uL (130-400); RDW 12.4 % (11.8-14.1); RDW-SD 43.2 fL; WBC 8.23 10^3/uL (4.4-10.8)
[2021-03-02 09:43] LABS: ALT 48 U/L (16-63); AST 38 U/L (15-37); Albumin 3.8 g/dL (3.4-5.0); Alkaline Phosphatase 103 U/L (46-116); Anion Gap 7.1 mmol/L (3-11); BUN 24 mg/dL (7-18); Bilirubin, Total 0.4 mg/dL (0.2-1.0); CO2 30.9 mmol/L (21.0-32.0); CREATININE 1.1 mg/dL (0.70-1.30); Calcium 8.9 mg/dL (8.5-10.1); Chloride 102 mmol/L (98-107); Glucose 108 mg/dL (74-106); INR 1.1 (0.9-1.1); PTT Activated 25.2 sec (21.0-27.5); Prothrombin Time 11.2 sec (9.3-11.0); Sodium 140 mmol/L (136-145); Total Protein 7.5 g/dL (6.4-8.2)
[2021-03-02 09:50] LABS: Bilirubin Small (Negative); Blood Large (Negative); Clarity Sl Cloudy (Clear); Glucose Negative (Negative); Ketones Trace mg/dL (Negative); Leukocyte Esterase Small (Negative); Nitrite Negative (Negative); Specific Gravity >= 1.030 (1.005-1.025); Urobilinogen 0.2 EU/dL (Up TO 0.2); pH 5.5 (5-8)
[2021-03-02] MEDS: Phenazopyridine 200 MG TAB PO (09:55)
[2021-03-02 09:56] LABS: Bacteria Few HPF (Negative); C & S Indicated? Yes; Casts Negative LPF (Negative); Crystals Negative HPF (Negative); Epithelial Cells Few HPF (Negative); Mucus Negative (Negative); RBC >50 HPF (0-2)
--- NOTE | 2021-03-02 10:55 | NUR.NOTE ---
pt and provided with meal tray Nursing Note:
== END 2021-03-02 11:56 | disposition home or self-care (01) ==
PROVIDERS: Emergency Provider Emergency Medicine; PCP Family Medicine
DX: N39.0 Urinary tract infection, site not specified; Z87.440 Personal history of urinary (tract) infections; R31.9 Hematuria, unspecified
CPT/HCPCS: 36415; 80053; 99283; 81003; 81015; 85025; 85610; 85730; 87086

== ENCOUNTER → 2021-03-03 12:54 | Outpatient (BNVA) | payer OTHER, SELFPAY | PROVIDERS: PCP Family Medicine; Referring Provider Family Medicine; Visit Provider Urology | DX: T19.1XXA Foreign body in bladder, initial encounter (principal); T19.0XXA Foreign body in urethra, initial encounter; N39.0 Urinary tract infection, site not specified; J44.9 Chronic obstructive pulmonary disease, unspecified | CPT/HCPCS: 52310; 99204; 99213 ==

== ENCOUNTER 2021-06-06 04:12 | Outpatient (CLI) | payer OTHER, SELFPAY ==
[2021-06-06] MEDS: Albuterol HFA 18 GM 200 PUFF INH IH (16:02)
[2021-06-06] MEDS: Inhaler, Assist Device 1 EACH MC (16:02)
--- NOTE | 2021-06-06 16:59 | W.PFT ---
Date of service: 06/06/21 Time of Service: 15:02 Pulmonary Function Test Result Requesting Provider Yvonne Solorio Interpretation Spirometry: There is no airflow obstruction. There is a pattern of restriction present. There is no bronchodilator response. Lung Volumes: There is reduced total lung capacity. Diffusion Capacity: The diffusion is normal. Airway Pressure: Airways resistance is normal. Impression Pulmonary function tests consistent with a restrictive lung disease. Clinical Correlation therefore is recommended.
== END 2021-06-06 04:13 | disposition home or self-care (01) ==
LOC: RT 04:12
PROVIDERS: PCP Family Medicine; Visit Provider Family Medicine
DX: J44.9 Chronic obstructive pulmonary disease, unspecified (principal)
CPT/HCPCS: 94060; 94726; 94729

== ENCOUNTER 2021-06-07 14:05 | Outpatient (CLI) | payer OTHER, SELFPAY ==
[2021-06-07 21:29] LABS: Rheumatoid Factor <8.6 IU/mL (<12.0)
[2021-06-08 08:59] LABS: Cyclic Citrullinated Peptide <2.5 U/mL (<5.0)
[2021-06-08 13:55] LABS: ANA Interpretation Positive (Negative); ANA Titer Pattern 1:80 Speckled
[2021-06-20 16:46] LABS: Misc Referral (MAYO) See Comments
== END 2021-06-07 14:06 | disposition home or self-care (01) ==
LOC: RT 14:05
PROVIDERS: PCP Family Medicine; Visit Provider Student in an Organized Health Care Education/Training Program
DX: J98.4 Other disorders of lung (principal)
CPT/HCPCS: 86200; 86038; 86431; 94762

== ENCOUNTER 2021-06-13 01:57 | Outpatient (CLI) | payer OTHER, SELFPAY ==
--- NOTE | 2021-06-13 08:00 | DI.CT_ITS ---
Exam(s) CT CHEST HIGH RESOLUTION EXAM: CT CHEST HIGH RESOLUTION CLINICAL HISTORY: Concern for ILD - ortega and asbestos exposure,RESTRICTIVE LUNG DISEASE,. TECHNIQUE: Multi planar reconstructions were performed. CONTRAST MATERIAL: None COMPARISON: CT CT ABDOMEN PELVIS W from 02/24/2021 CR,XR XR PORTABLE CHEST AP from 02/24/2021 CR,XR XR PORTABLE CHEST AP from 02/24/[address] ABDOMEN PELVIS W from 02/24/2021 FINDINGS: CHEST: Compared to the uppermost images of an abdominal CT scan performed 02/24/2021 LUNGS: There are calcified pleural plaques bilaterally over both upper lobes and posteriorly over the lower lobes. These are sessile and have benign appearance and 0 seen in the lung bases on the previ ous abdominal CT scan appear unchanged from that study of 02/24/2021. Calcified granuloma in the lef t lower lobe posterior basal segment also appears unchanged. There is atelectasis and mild infiltrate in the posterior basal segment of the right lower lobe. Als o some atelectasis and infiltrate in the right middle lobe, more so than previous. No infiltrates in the left upper lobe and lingular segments. No infiltrates in the superior segment of the left lower lobe the exception of some mild infiltrate noted lower down the basal segments posterior basal segme nt left lower lobe, slightly more so than previous. No pleural effusion. MEDIASTINUM: There is no obvious hilar nor mediastinal adenopathy. Visualized thyroid unremarkable.No obvious axillary adenopathy CARDIAC: Heart size upper normal. No pericardial effusion. Coronary artery calcification noted.Mauri jermaine of the thoracic aorta is within normal limits. VISUALIZED UPPER ABDOMEN:No adrenal mass is seen. Calcified granuloma in the liver peripheral aspect right lobe., unchanged. OSSEOUS: No significant osseous lesions.. IMPRESSION: 1. There is some atelectasis and mild infiltrate in the right lower and right middle lobes injury and lower lobe left-side, these findings increased from the prior study. Calcified pleural plaques agai n noted bilaterally and remain unchanged. There are no pleural effusions. no intrathoracic adenopat hy. 2. Recommend follow-up chest CT scan in 6 months. Earlier if clinically indicated. 3. RADIATION DOSE DELIVERED: 629.36mGy.cm Total DLP DATA REPOSITORY: All CT scans at this facility are submitted to the National Radiology Data Registry (NRDR) Dose Index Registry (DIR) with the [employer] (ACR). RADIATION OPTIMIZATION: All CT scans at this facility use at least one of these dose optimization te chniques: automated exposure control; mA and/or kV adjustment per patient size (includes targeted exa ms where dose is matched to clinical indication); or iterative reconstruction.
== END 2021-06-13 02:17 ==
PROVIDERS: PCP Family Medicine; Visit Provider Student in an Organized Health Care Education/Training Program
DX: J98.4 Other disorders of lung (principal); J98.11 Atelectasis; R91.8 Other nonspecific abnormal finding of lung field; J94.8 Other specified pleural conditions; S27.301A Unspecified injury of lung, unilateral, initial encounter; X58.XXXA Exposure to other specified factors, initial encounter
CPT/HCPCS: 71250

== ENCOUNTER 2022-01-31 15:13 | Outpatient (REF) | payer MEDICARE, SELFPAY | END 2022-01-31 15:14 | disposition home or self-care (01) | LOC: LBN 15:13 | PROVIDERS: PCP Family Medicine; Visit Provider Student in an Organized Health Care Education/Training Program | DX: J47.9 Bronchiectasis, uncomplicated (principal) | CPT/HCPCS: 87116; 87206 ==

== ENCOUNTER → 2022-02-06 01:06 | Outpatient (CLI) | payer MEDICARE, SELFPAY ==
--- NOTE | 2022-02-06 09:49 | DI.US_ITS ---
APPROVED REPORT EXAM: Comprehensive 2D, Doppler, and color-flow Echocardiogram Patient Location: Out-Patient [employer] Repairer: Yolie Jeffrey RDCS (AE) Indications: Dyspnea Other Information Study Quality: Adequate Conclusion Normal left ventricular chamber size. Mild concentric left ventricular hypertrophy. Ejection fracti on is normal. There are no segmental wall motion abnormalities Normal right ventricular size and systolic function Left atrium is mildly dilated. The right atrium is normal in size The aortic valve is very mildly sclerotic and trileaflet without stenosis or regurgitation Mild mitral annular calcification. Trace to mild mitral regurgitation Normal tricuspid valve with mild regurgitation. Estimated right ventricular systolic pressure is 34 mmHg Normal pulmonic valve, moderate regurgitation Dilated ascending aorta measuring 3.84 cm Wall motion Left Ventricle The left ventricle is normal size. The left ventricular systolic function is normal. The left ventric ular ejection fraction is within the normal range. Mild concentric left ventricular hypertrophy. Ther e is normal LV segmental wall motion. There is no ventricular septal defect visualized. LVEF is 57%. Right Ventricle The right ventricle is normal size. The right ventricular systolic function is normal. The RVSP is 34 .3 mmHg. Atria Left atrium is mildly dilated. The right atrium size is normal. The interatrial septum is intact with no evidence for an atrial septal defect. Aortic Valve The Aortic valve is mildly sclerotic. Aortic valve is trileaflet. No hemodynamically significant valv ular aortic stenosis. No aortic regurgitation is present. Mitral Valve Mild mitral annular calcification. No evidence of mitral valve stenosis. Trace to mild mitral regurgi tation. Tricuspid Valve The tricuspid valve is normal in structure. There is no tricuspid valve stenosis. Mild tricuspid regu rgitation. Pulmonic Valve The pulmonary valve is normal in structure. There is no pulmonic valvular stenosis. Moderate pulmonic regurgitation. Great Vessels The aortic root is normal in size. The ascending aorta is mildly dilated.3.84 cm Aortic arch is not w ell visualized. IVC is normal in size and collapses >50% with inspiration. Pericardium There is no pericardial effusion. 2D Dimensions IVSD d PLAX 1.31 cm M: 0.6-1.2 LV Vol A2C d MOD 105.0 mL LVPW d PLAX 1.32 cm M: 0.6 - 1.2 LV Vol A4C d MOD 94.0 mL LVID d PLAX 4.41 cm M: 4.2 - 5.8 LA vol/ BSA A2C s A-L 26.6 mL/m2 LVDs 3.10 cm M: 2.5 - 4.0 LA vol/ BSA A4C s A-L 34.5 mL/m2 Ao Root d 3.38 cm M: 3.1 - 3.7 LA Vol/ BSA Biplane s A-L 31.4 mL/m2 RA Area A4C 13.22 cm2 LA Area A4C s MOD 23.87 cm2 RA Vol/ BSA A4C s A-L 14.3 mL/m2 LA Area A2C s MOD 20.17 cm2 Ao Asc Diam d 3.84 cm M: 2.6 - 3.4 LV EF A4C MOD 57.5 % LV EF Teichholz 56.0 % LV EF A2C MOD 57.1 % LVEF (Cevallos's) 57.13 % M: 52 - 72 LV EF Biplane MOD 57.1 % LV Volume 73.29 mL M: 62 - 150 SV 57.34 mL LV Volume Index 33.77 mL/m2 M: 34 - 74 SV Index 26.40 mL/m2 LV Vol Biplane MOD 100.4 mL FS 29.05 % M-Mode TAPSE 2.51 cm (M/F) >1.7 LV Diastology MV E' medial 0.062 (>0.07 m/s) E/A Ratio 0.8 LV E/e MED 12.30 (<14) MV E Vmax 0.76 (0.4-1.3 m/s) MV E' lateral 0.108 (>0.1 m/s) MV A Vmax 0.90 (0.4-1.3 m/s) LV E/e LAT 7.10 (<14) MV E/A Ratio 0.84 MV E/E' medial 12.34 MV E/E' lateral 7.10 Aortic Valve LVOT Area 3.69 cm2 AoV Area Vmax 2.29 cm2 LVOT Vmax 1.22 m/s AoV Area/ BSA (Vmax) 1.06 cm2/m2 LVOT Mean Carlos. 0.75 m/s ANDREWS Mean Carlos. 1.98 cm2 LVOT Peak Grad 6.0 mmHg ANDREWS Mean Carlos. Index 0.91 cm2/m2 LVOT Mean Grad 2.7 mmHg LVOT VTI 0.231 m LVOT Diam s 2.15 cm AoV Vmax 1.97 m/s Velocity Ratio 0.61 AoV Mean Carlos. 1.41 m/s AoV Peak Grad 15.6 mmHg LVOT SV 85.46 mL AoV Mean Grad 8.7 mmHg AoV VTI 0.344 m AoV Area VTI 2.49 cm2 AoV Area/ BSA (VTI) 1.14 cm/m2 Mitral Valve MV DT 244 (160-240 msec) MV PHT 71 msec MV Area PHT 3.10 cm2 MV VTI 0.280 m MV Area VTI 3.05 (4.0-6.0 cm2) Pulmonary Valve PV Vmax 1.29 (0.5-1.5 m/s) RVOT Peak Gr. 4.37 mmHg PV Peak Grad 6.7 mmHg RVOT Mean Gr. 2.15 mmHg PV Mean Grad 3.3 mmHg RVOT VTI 0.162 m PV VTI 0.196 m RVOT Vmax 1.05 m/s Tricuspid Valve TR Peak Grad 31.3 mmHg TR Vmax 2.80 m/s RA Pressure 3.00 mmHg RVSP (TR) 34.3 mmHg
--- NOTE | 2022-02-06 10:19 | DI.CT_ITS ---
Exam(s) CT CHEST WO EXAM: CT CHEST WO CLINICAL HISTORY: f/u previously seen infiltrate,r91.8 TECHNIQUE: Imaging Protocol: Axial computed tomography images with coronal and sagittal reformatted images were created and reviewed CONTRAST MATERIAL: Intravenous: Omnipaque 350 Contrast volume:structured data in ml. COMPARISON: CR,XR XR PORTABLE CHEST AP from 02/24/[address] PELVIC WO from 02/27/[address] CHEST HIGH RESOLUTION from 06/13/2021 FINDINGS: Tracheobronchial tree: No bronchiectasis or mucous plugging. Mediastinum and Flor: No dominant adenopathy or fluid collection. Pulmonary parenchyma: No consolidation or dominant measurable mass. No infiltrates. Linear areas of scarring greater right right lower lobe. Pleura: No effusion or pneumothorax. Calcified pleural plaques. Heart: The heart is not dilated. Erju-go-weikryhw coronary artery calcifications are seen. Aorta: Thoracic aorta non-dilated. Upper abdomen: Atrophic pancreas, otherwise unremarkable. Lymph nodes: Within normal limits. Bones: Degenerative changes throughout the spine. Degenerative changes sternoclavicular joints. Tubes, Catheters, and Lines: Soft tissues: Unremarkable. IMPRESSION: Linear areas of scarring. No evidence of infiltrate, mass or adenopathy. Calcified pleural plaques. RADIATION DOSE DELIVERED: 624.24mGy.cm Total DLP DATA REPOSITORY: All CT scans at this facility are submitted to the National Radiology Data Registry (NRDR) Dose Index Registry (DIR) with the [employer] (ACR). RADIATION OPTIMIZATION: All CT scans at this facility use at least one of these dose optimization te chniques: automated exposure control; mA and/or kV adjustment per patient size (includes targeted exa ms where dose is matched to clinical indication); or iterative reconstruction.
== END ==
PROVIDERS: PCP Family Medicine; Visit Provider Student in an Organized Health Care Education/Training Program
DX: R91.8 Other nonspecific abnormal finding of lung field (principal); R06.02 Shortness of breath; R06.09 Other forms of dyspnea
CPT/HCPCS: 71250; 93306

== ENCOUNTER 2022-04-20 11:51 | Emergency (ER) | payer MEDICARE, SELFPAY ==
[2022-04-20 12:21] VITALS: BP 130/68; PULSE 93; RESP 16; TEMP 36.7; O2SAT 93
--- NOTE | 2022-04-20 12:32 | W.ED.GENAD ---
Discharge Plan Disposition Patient Disposition: HOME Condition: Stable Discharge Details Clinical Impression: Bilateral lower leg cellulitis Primary Care Provider: Yvonne Solorio ED Provider: Brenda Jackson Home Meds and New Rx's Prescriptions: New doxycycline hyclate 100 mg tablet 100 mg PO BID 7 Days Qty: 14 0RF Continued Linzess 290 mcg capsule 290 mcg PO DAILY PRN acetaminophen 500 MG tablet 1,000 mg PO Q4H PRN melatonin 3 MG tablet 3 mg PO HS PRN Rx Instructions: 03/04/17 Dr BASURTO [facility] diclofenac sodium [Voltaren] 100 GM gel 100 gm Topical BID MDD twice Qty: 1 2RF naloxone [Narcan] 4 MG spray,non-aerosol 4 mg NS as directed 1 Days Qty: 2 0RF Rx Instructions: instill 1 spray into 1 nostril for opioid overdose-may repeat once in opposite nostril if no response fentanyl 1 EACH patch 72 hour 1 adh.patch Transdermal Q72H MDD 1 patch Q72 hours 30 Days Qty: 10 0RF Rx Instructions: 25mcg - remove old patch when applying new patch magnesium 250 MG tablet 250 mg PO DAILY oxycodone 10 MG tablet 10 mg PO QID tamsulosin 0.4 mg Capsule 0.4 mg PO HS losartan-hydrochlorothiazide 100-25 mg Tablet 1 tab PO DAILY albuterol sulfate 2.5 mg /3 mL (0.083 %) Solution For Nebulization 2.5 mg Inhalation Q6H PRN gabapentin 600 mg tablet 600 mg PO TID Label Comments: TAKE ONE TABLET BY MOUTH THREE TIMES A DAY famotidine 40 mg tablet 40 mg PO DAILY Label Comments: TAKE ONE TABLET BY MOUTH EVERY DAY dextromethorphan-guaifenesin [Mucinex DM] 60-1,200 mg Tablet Extended Release 12 Hr 1 tab PO BID PRN polyethylene glycol 3350 17 gram/dose powder 17 g PO DAILY PRN (Reason: Constipation) Label Comments: TAKE 17G ONE CAPFUL BY MOUTH MIXED IN 8OZ OF LIQUID AND DRINK ONCE DAILY NEEDED albuterol sulfate [ProAir HFA] 90 mcg/actuation HFA aerosol inhaler 2 inh INHALATION Q4H PRN Label Comments: INHALE TWO PUFFS BY MOUTH EVERY 4 TO 6 HOURS NEEDED ondansetron 4 mg Tablet,Disintegrating 4 mg PO TID PRN triamcinolone acetonide 0.1 % cream 1 applic TOPICAL DAILY Label Comments: APPLY TO AFFECTED AREA S ONCE DAILY finasteride 5 MG tablet 5 mg PO HS Rx Instructions: for lower urinary track symptoms latanoprost [Xalatan] 2.5 ML drops 1 drp OU HS Qty: 0 0RF cholecalciferol (vitamin D3) 1,000 UNITS tablet 1,000 units PO DAILY ipratropium-albuterol 0.5 mg-3 mg(2.5 mg base)/3 mL solution for nebulization 3 ml INHALATION DIRECTED buspirone 30 mg tablet 30 mg PO DAILY Label Comments: TAKE ONE TABLET BY MOUTH EVERY DAY Sin Prasadta 100-62.5-25 mcg blister with device 1 inh INHALATION QAM Label Comments: INHALE ONE PUFF BY MOUTH EVERY MORNING Discharge Instructions Instructions: Cellulitis (ED) Additional Instructions: Your lab work and imaging today is reassuring and shows no evidence of acute concerning or significant findings. Keep your legs elevated as much as possible. Limit sodium in your diet which can contribute to fluid retention. A prescription for antibiotics has been sent electronically to your pharmacy to take as directed until finished. Call your primary care doctor's office today to schedule a follow-up appointment for reevaluation within the next week. Return immediately to the emergency department if you develop any worsening or new concerning symptoms such as fever, worsening pain, redness or swelling. Discharge Data Discharge Date/Time-TO BE ENTERED AT DEPARTURE: 04/20/22 15:57 Discharge Physician: Brenda Jackson Medical Decision Making 86-year-old M with a history of hypertension, diabetes, obesity, osteoarthritis, GERD who presents for bilateral lower leg redness, pain and swelling for the past month, minimally improved with outpatient Keflex x2 now presents with persistent redness, pain and swelling. 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 He appears comfortable and nontoxic. He is afebrile. He has bilateral lower extremity 1+ pitting edema, with increased swelling in the left leg. He has erythema with scattered areas of scaling and crust. There is no abscess noted. He is otherwise neurovascularly intact. We will obtain screening labs and refer for bilateral leg ultrasound. Labs and imaging reviewed. Normal white blood cell count. CRP minimally elevated to 0.6. Ultrasounds negative for DVT. Discussed with patient that his labs are reassuring for significant infection but he would like to treat with antibiotics. Discussed that his symptoms could be due to venous stasis or peripheral vascular disease although he has intact bilateral lower extremity pulses. Discussed concern for clindamycin and potential for diarrhea and risk of C. difficile colitis. We will treat with doxycycline. Advised to call the PCP office for follow-up within the next week. Usual and customary return precautions given prior to discharge. Medical Records Medical records reviewed: Yes I reviewed the patient's medical records. Imaging Data Radiologic Study: Radiologist's impression: US EXTREMITY VENOUS BI CLINICAL HISTORY: ? leg swelling, pain, redness, r/o dvt.? TECHNIQUE:? Bilateral lower extremity venous ultrasound performed using grayscale, color-flow, and spectral Doppler analysis. COMPARISON:? No exams were available for comparison FINDINGS: The bilateral common femoral, femoral and popliteal veins demonstrate normal compressibility, augmentation, and color Doppler. The posterior tibial veins are patent.? Soft tissue edema is seen.? No focal collection. IMPRESSION: Right: Negative for DVT Left: Negative for DVT Lab Data Lab results reviewed: Yes I reviewed the patient's lab results. Labs: 04/20/22 14:01 Blood Blood Culture - Pending 04/20/22 13:50 Blood Blood Culture - Pending Laboratory Tests Range/Units 04/20/22 04/20/22 13:06 13:06 WBC (4.4-10.8) 10^3/uL 9.56 RBC (4.36-5.78) 10^6/uL 4.31 L Hgb (13.5-17.5) g/dL 13.9 Hct (40.0-50.0) % 40.4 MCV (80-95) fL 94 MCH (27.0-33.0) pg 32.3 MCHC (32.0-36.0) % 34.4 RDW (11.8-14.1) % 12.2 Plt Count (130-400) 10^3/uL 344 MPV (8.0-11.0) fL 9.7 Immature Gran % 0.3 Neutrophils % 70.3 Lymphocytes % 15.7 Monocytes % 9.7 Eosinophils % 3.2 Basophils % 0.8 Nucleated RBC % (0.0-0.3) % 0.0 Absolute Neutrophils (1.2-6.7) 10^3/uL 6.71 H Absolute Lymphocytes (1.2-3.4) 10^3/uL 1.50 Absolute Monocytes (0.1-0.8) 10^3/uL 0.93 H Absolute Eosinophils (0.0-0.7) 10^3/uL 0.31 Absolute Basophils (0.0-0.2) 10^3/uL 0.08 Sodium (136-145) mmol/L 131 L Potassium (3.5-5.1) mmol/L 3.8 Chloride (98-107) mmol/L 92 L Carbon Dioxide (21.0-32.0) mmol/L 36.2 H Anion Gap (3-11) mmol/L 2.8 L BUN (7-18) mg/dL 27 H Creatinine (0.70-1.30) mg/dL 1.2 Estimated GFR/1.73 m2 (mL/min/1.73m2) 57.68 Glucose (74-106) mg/dL 103 Calcium (8.5-10.1) mg/dL 9.4 Total Bilirubin (0.2-1.0) mg/dL 0.4 AST (15-37) U/L 19 ALT (16-63) U/L 23 Alkaline Phosphatase (46-116) U/L 110 C-Reactive Protein (0.0-0.3) mg/dL 0.62 H Total Protein (6.4-8.2) g/dL 7.8 Albumin (3.4-5.0) g/dL 3.9 HPI General Mode of arrival: ambulatory. Date/Time Provider Initiated Documentation: 04/20/22 12:31. Limitations to Documentation: no limitations. Information obtained by: patient. HPI Narrative: Patient is a an 86-year-old male with a history of obesity, hypertension, GERD who presents with bilateral lower leg swelling, redness and pain for the past month. Patient states he saw [facility] for this complaint and was placed on Keflex without relief and given an additional regimen of Keflex with minimal relief. Patient states the pain is constant but worse with ambulating. He denies any fever, injury. Related Data Home Medications Medication Instructions Recorded Confirmed acetaminophen 500 mg tablet 1,000 mg PO Q4H PRN 07/09/15 04/18/22 melatonin 3 mg tablet 3 mg PO HS PRN 03/07/17 04/18/22 latanoprost 0.005 % eye drops 1 drp OU HS ##0 03/09/17 04/18/22 (Xalatan) diclofenac sodium 1 % topical gel 100 gm topical BID ##1 09/11/17 04/18/22 (Voltaren) naloxone 4 mg/actuation nasal 4 mg NS as directed 1 day #2 sprays 01/23/18 04/18/22 spray (Narcan) cholecalciferol (vitamin D3) 25 1,000 units PO DAILY 03/14/18 04/18/22 mcg (1,000 unit) tablet fentanyl 12 mcg/hr transdermal 1 adh.patch transdermal Q72H 30 03/26/18 04/18/22 patch days ##10 magnesium 250 mg tablet 250 mg PO DAILY 06/13/18 04/18/22 oxycodone 10 mg tablet 10 mg PO QID 06/13/18 04/18/22 albuterol sulfate 2.5 mg/3 mL 2.5 mg inhalation Q6H PRN 04/21/19 04/18/22 (0.083 %) solution for nebulization losartan 100 1 tab PO DAILY 04/21/19 04/18/22 mg-hydrochlorothiazide 25 mg tablet tamsulosin 0.4 mg capsule 0.4 mg PO HS 04/21/19 04/18/22 linaclotide 290 mcg capsule 290 mcg PO DAILY PRN 05/22/19 04/18/22 (Linzess) buspirone 30 mg tablet 30 mg PO DAILY 02/24/21 04/18/22 fluticasone fur. 100 mcg-umeclid 1 inh inhalation QAM 02/24/21 04/18/22 62.5 mcg-vilant 25 mcg inhalat.powder (Trelegy Ellipta) ipratropium 0.5 mg-albuterol 3 mg 3 ml inhalation DIRECTED 02/24/21 04/18/22 (2.5 mg base)/3 mL nebulization soln famotidine 40 mg tablet 40 mg PO DAILY 02/25/21 04/18/22 gabapentin 600 mg tablet 600 mg PO TID 02/25/21 04/18/22 albuterol sulfate 90 mcg/actuation 2 inh inhalation Q4H PRN 03/02/21 04/18/22 aerosol inhaler (ProAir HFA) dextromethorphan-guaifenesin ER 60 1 tab PO BID PRN 03/02/21 04/18/22 mg-1,200 mg tab,extend release,12hr (Mucinex DM) finasteride 5 mg tablet 5 mg PO HS 03/02/21 04/18/22 ondansetron 4 mg disintegrating 4 mg PO TID PRN 03/02/21 04/18/22 tablet polyethylene glycol 3350 17 17 g PO DAILY PRN Constipation 03/02/21 04/18/22 gram/dose oral powder triamcinolone acetonide 0.1 % 1 applic topical DAILY 03/02/21 04/18/22 topical cream doxycycline hyclate 100 mg tablet 100 mg PO BID 7 days #14 tabs 04/20/22 Previous Rx's Medication Instructions Recorded latanoprost 0.005 % eye drops 1 drp OU HS ##0 03/09/17 (Xalatan) diclofenac sodium 1 % topical gel 100 gm topical BID ##1 09/11/17 (Voltaren) naloxone 4 mg/actuation nasal 4 mg NS as directed 1 day #2 sprays 01/23/18 spray (Narcan) fentanyl 12 mcg/hr transdermal 1 adh.patch transdermal Q72H 30 03/26/18 patch days ##10 doxycycline hyclate 100 mg tablet 100 mg PO BID 7 days #14 tabs 04/20/22 Allergies Allergy/AdvReac Type Severity Reaction Status Date / Time aspirin AdvReac Intermediate GI Bleeding Unverified 04/18/22 15:33 NSAIDS (Non-Steroidal AdvReac Intermediate GI Bleeding Unverified 04/18/22 15:33 Anti-Inflamma General Stated Complaint: Cellulitis DIAZ: 3 Review of Systems All systems reviewed & are unremarkable except as noted in HPI and below Constitutional Constitutional: Denies chills, Denies excessive sweating, Denies fatigue, Denies fever(s), Denies weakness and Denies weight loss Eyes Eyes: Reports system reviewed and no additional complaints, except as documented and Denies blurry vision ENT Ears, Nose, Mouth, and Throat: Denies vertigo, Denies dizziness, Denies otalgia, Denies nasal congestion, Denies sore throat and Denies throat swelling Cardiovascular Cardiovascular: Denies chest pain, Denies syncope, Denies rapid heart rate and Denies dyspnea Respiratory Respiratory: Denies chest congestion, Denies cough, Denies pain on inspiration and Denies dyspnea Gastrointestinal Gastrointestinal: Denies abdominal pain, Denies diarrhea and Denies vomiting Genitourinary Genitourinary: Denies hematuria, Denies dysuria and Denies flank pain Musculoskeletal Musculoskeletal: Denies back pain and Denies joint swelling Comments: b/l leg swelling, redness, pain Integumentary/Breasts Skin/Breast: Denies lesions and Denies rash Neurologic Neurologic: Denies behavioral changes, Denies confusion, Denies vertigo, Denies dizziness, Denies syncope, Denies localized weakness and Denies weakness Psychiatric Psychiatric: Denies behavioral changes, Denies confusion and Denies depression Endocrine Endocrine: Denies excessive sweating and Denies fatigue Hematologic/Lymphatic Hematologic/Lymphatic: Denies easy bruising and Denies lymphadenopathy Allergic/Immunologic Allergic/Immunologic: Denies throat swelling PFSH All Active Problems (Updated 04/20/22 @ 15:49 by Brenda Jackson DO) Bilateral lower leg cellulitis (Acute) 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 exposure (Acute) Respiratory failure with hypoxia (Acute) Bronchiectasis (Acute) Nocturnal hypoxia (Acute) Restrictive lung disease (Acute) Foreign body in bladder and urethra (Acute) Dislodged Garcia catheter (Acute) Hematuria (Acute) Acute UTI (Acute) Discharge planning issues (Acute) DVT prophylaxis (Acute) Abdominal pain (Acute) BPH (benign prostatic hyperplasia) (Chronic) Essential hypertension (Acute) Lung infiltrate (Acute) UTI (urinary tract infection) (Acute) 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 Ayala Extraction of cataract (02/15/16) [place] R with IOL; and L as well, Dr. Dickinson in [place] Repair of inguinal hernia (08/31/11) Right sided with orchiectomy Rotator Cuff Repair (~1996) Right spinal stenosis (~2005) L foot drop result; L4 laminectomy and L4-5 R discectomy, Dr Campbell; second procedure at [place], [place] approx 02/2017 L1-L2 Lamine[address] Dr. 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 Diabetes age 50 Essential hypertension Stroke Uterine cancer Father , Colon CA at age 87. Colon cancer Sister Breast cancer Sister Ovarian cancer Sister Ovarian cancer Sister No problems noted. Sister No problems noted. Sister No problems noted. Sister No problems noted. Sister No problems noted. Brother Diabetes Brother No problems noted. Brother No problems noted. Social History Smoking/Tobacco Use Status: Never Smoking risk assessment performed?: Yes Alcohol Intake: never Drug use: Never Substance use type: does not use Do you feel safe at home: Yes Do you feel safe in your relationship?: Yes Exam Const General: cooperative Nutritional Appearance: obese centrally obese Orientation: alert, awake and oriented x3 HENMT Head: normal to inspection Ears: hearing grossly normal bilaterally, external ears normal and TM's normal bilaterally General nose exam: external nose normal Face and sinus: normal facial exam Mouth: oral mucosae normal Teeth and gingiva: dentition normal Throat: posterior oropharynx normal Eyes General: appearance normal, both eyes and all related structures Eyelids: eyelids normal Pupils: PERRL EOM: EOM intact bilaterally Neck Neck: normal visual inspection Lymphatic: no lymphadenopathy noted Chest Chest: normal inspection of the chest Resp Effort & Inspection: normal respiratory effort and able to speak in complete sentences Cardio Rate: regular rate GI Inspection: normal to inspection Palpation: soft, not firm, no guarding, no hepatosplenomegaly, no masses and nontender Auscultation: normal bowel sounds Back/Spine/Pelvis Back: no CVA tenderness Skin General skin exam: no rashes or lesions noted Neuro General: patient alert and patient awake Cognition: normal cognition Speech: speech normal Gait: normal gait Motor: muscle tone normal throughout Sensory Exam: no sensory deficits noted Extrem Upper/lower leg/hip images: 1. Bilateral lower extremity 1+ pitting edema, with some increase of edema in the left lower extremity. There is erythema and scattered crusted and scaling but no evidence of abscess or fluctuance, induration. Bilateral DP/PT pulse present. Psych Appearance: grossly normal Mental Status: mental status grossly normal Speech and Movement: speech and movement normal Affect: normal affect Thought Process: normal Course Vital Signs Vital signs: Vital Signs Temperature 98.1 F 04/20/22 12:21 Pulse 93 H 04/20/22 12:21 Respiratory Rate 16 04/20/22 12:21 Blood Pressure 130/68 04/20/22 12:21 Pulse Oximetry 93 04/20/22 12:21 Temperature 98.1 F 04/20/22 12:21 Temperature Source Temporal Artery Scan 04/20/22 12:21 Pulse 93 H 04/20/22 12:21 Respiratory Rate 16 04/20/22 12:21 Blood Pressure 130/68 04/20/22 12:21 Blood Pressure Position Sitting 04/20/22 12:21 Pulse Oximetry 93 04/20/22 12:21 Oxygen Delivery Method Room Air 04/20/22 12:21 Oxygen Flow Rate 0 04/20/22 12:21 Pain Level 6 04/20/22 12:21
--- NOTE | 2022-04-20 12:45 | DI.US_ITS ---
Exam(s) US EXTREMITY VENOUS BI EXAM: US EXTREMITY VENOUS BI CLINICAL HISTORY: leg swelling, pain, redness, r/o dvt. TECHNIQUE: Bilateral lower extremity venous ultrasound performed using grayscale, color-flow, and sp ectral Doppler analysis. COMPARISON: No exams were available for comparison FINDINGS: The bilateral common femoral, femoral and popliteal veins demonstrate normal compressibility, augment ation, and color Doppler. The posterior tibial veins are patent. Soft tissue edema is seen. No foca l collection. IMPRESSION: Right: Negative for DVT Left: Negative for DVT DATA REPOSITORY:
[2022-04-20 13:16] LABS: Abs Immature Grans 0.03 10^3/uL (0.0-0.06); Absolute Basophil Count 0.08 10^3/uL (0.0-0.2); Absolute Eosinophil Count 0.31 10^3/uL (0.0-0.7); Absolute Monocyte Count 0.93 10^3/uL (0.1-0.8); Absolute Neutrophil Count 6.71 10^3/uL (1.2-6.7); Basophils % 0.8; Eosinophils % 3.2; HCT 40.4 % (40.0-50.0); HGB 13.9 g/dL (13.5-17.5); Immature Grans % 0.3; Lymphocytes % 15.7; MCH 32.3 pg (27.0-33.0); MCHC 34.4 % (32.0-36.0); MCV 94 fL (80-95); MPV 9.7 fL (8.0-11.0); Monocytes % 9.7; Neutrophils % 70.3; Platelet Count 344 10^3/uL (130-400); RBC 4.31 10^6/uL (4.36-5.78); RDW 12.2 % (11.8-14.1); RDW-SD 42.4 fL; WBC 9.56 10^3/uL (4.4-10.8)
[2022-04-20 13:37] LABS: ALT 23 U/L (16-63); AST 19 U/L (15-37); Albumin 3.9 g/dL (3.4-5.0); Alkaline Phosphatase 110 U/L (46-116); Anion Gap 2.8 mmol/L (3-11); BUN 27 mg/dL (7-18); Bilirubin, Total 0.4 mg/dL (0.2-1.0); C-Reactive Protein 0.62 mg/dL (0.0-0.3); CO2 36.2 mmol/L (21.0-32.0); CREATININE 1.2 mg/dL (0.70-1.30); Calcium 9.4 mg/dL (8.5-10.1); Chloride 92 mmol/L (98-107); Estimated GFR 57.68 (mL/min/1.73m2); Glucose 103 mg/dL (74-106); Potassium 3.8 mmol/L (3.5-5.1); Sodium 131 mmol/L (136-145); Total Protein 7.8 g/dL (6.4-8.2)
[2022-04-20 15:55] VITALS: PULSE 68; RESP 14; O2SAT 99
== END 2022-04-20 15:57 | disposition home or self-care (01) ==
PROVIDERS: Emergency Provider Physician Assistant; PCP Family Medicine
DX: L03.115 Cellulitis of right lower limb (principal); L03.116 Cellulitis of left lower limb
CPT/HCPCS: 36415; 80053; 87040; 99284; 85025; 86140; 93970

== ENCOUNTER 2022-05-04 04:29 | Outpatient (CLI) | payer MEDICARE, SELFPAY ==
--- NOTE | 2022-05-08 11:08 | W.PFT ---
Date of service: 05/04/22 Time of Service: 13:02 Pulmonary Function Test Result Requesting Provider Duchene Indications: HTS trial Interpretation Spirometry: There is no airflow limitation. There was no significant decline in lung function with administration of hypertonic saline. The appearance of the flow volume curve is consistent with secretions impeding airflow. Impression No decline in lung function with hypertonic saline administration. Note: When compared to 06/06/21, lung function is stable. Clinical Correlation therefore is recommended.
== END 2022-05-04 04:30 | disposition home or self-care (01) ==
LOC: RT 04:29
PROVIDERS: PCP Family Medicine; Visit Provider Student in an Organized Health Care Education/Training Program
DX: J47.9 Bronchiectasis, uncomplicated (principal); R06.09 Other forms of dyspnea; R05.9 Cough, unspecified
CPT/HCPCS: 94060

== ENCOUNTER 2022-05-15 16:37 | Outpatient (REF) | payer MEDICARE, SELFPAY ==
[2022-05-15 14:40] LABS: Anion Gap 6.9 mmol/L (3-11); BUN 29 mg/dL (7-18); CO2 34.1 mmol/L (21.0-32.0); CREATININE 1.4 mg/dL (0.70-1.30); Calcium 9.2 mg/dL (8.5-10.1); Chloride 95 mmol/L (98-107); Estimated GFR 48.28 (mL/min/1.73m2); Glucose 117 mg/dL (74-106); Potassium 4.6 mmol/L (3.5-5.1); Sodium 136 mmol/L (136-145)
== END 2022-05-15 16:38 | disposition home or self-care (01) ==
LOC: NCHCN 16:37
PROVIDERS: PCP Family Medicine; Visit Provider Family Medicine
DX: I10 Essential (primary) hypertension (principal)
CPT/HCPCS: 80048

== ENCOUNTER 2022-11-24 12:16 | Outpatient (REF) | payer MEDICARE, SELFPAY ==
[2022-11-24 16:04] LABS: Abs Immature Grans 0.03 10^3/uL (0.0-0.06); Absolute Basophil Count 0.06 10^3/uL (0.0-0.2); Absolute Eosinophil Count 0.22 10^3/uL (0.0-0.7); Absolute Lymphocyte Count 1.53 10^3/uL (1.2-3.4); Absolute Monocyte Count 1.29 10^3/uL (0.1-0.8); Absolute Neutrophil Count 7.23 10^3/uL (1.2-6.7); Basophils % 0.6; Eosinophils % 2.1; HCT 39.3 % (40.0-50.0); HGB 12.9 g/dL (13.5-17.5); Immature Grans % 0.3; Lymphocytes % 14.8; MCH 31.1 pg (27.0-33.0); MCHC 32.8 % (32.0-36.0); MCV 95 fL (80-95); Monocytes % 12.5; Neutrophils % 69.7; Platelet Count 280 10^3/uL (130-400); RBC 4.15 10^6/uL (4.36-5.78); RDW 12.7 % (11.8-14.1); RDW-SD 43.8 fL; WBC 10.36 10^3/uL (4.4-10.8)
[2022-11-24 16:08] LABS: ESR 42 mm/hr (0-20)
[2022-11-24 16:12] LABS: Uric Acid 5.7 mg/dL (3.5-7.2)
== END 2022-11-24 12:17 | disposition home or self-care (01) ==
LOC: NCHCN 12:16
PROVIDERS: PCP Family Medicine; Visit Provider Nurse Practitioner Family
DX: M25.561 Pain in right knee (principal); M25.521 Pain in right elbow
CPT/HCPCS: 85652; 84550; 85025

== ENCOUNTER 2022-11-27 02:03 | Outpatient (CLI) | payer MEDICARE, SELFPAY ==
--- NOTE | 2022-11-27 | DI.RAD_ITS ---
Exam(s) XR KNEE RT 3V AP,LAT,GERA EXAM: XR KNEE RT 3V AP,LAT,GERA CLINICAL HISTORY: RT KNEE PAIN, M25.561. TECHNIQUE: 2D digital imaging was performed of the right knee. Three views obtained. AP, lateral an d PA tunnel views were obtained. COMPARISON: None. FINDINGS: BONES: No acute fracture is present. No bony destructive lesion is seen. JOINTS: The knee is normally aligned. There is a moderate joint effusion. Periarticular spurring is seen involving all 3 joint compartments. There is loss of the lateral femoral tibial joint space wit h subchondral sclerosis and subchondral cysts present. Dystrophic calcifications are seen in the sof t tissues medial and laterally. SOFT TISSUE: Normal. IMPRESSION: Marked degenerative changes of the right knee. DATA REPOSITORY: RADIATION DOSE DELIVERED:
--- NOTE | 2022-11-27 | DI.RAD_ITS ---
Exam(s) XR ELBOW RT COMPLETE EXAM: XR ELBOW RT COMPLETE CLINICAL HISTORY: RT ELBOW PAIN, M25.521. TECHNIQUE: 2D digital imaging was performed of the left elbow. Three images were obtained. AP, lat eral and oblique views were obtained. COMPARISON: No exams were available for comparison FINDINGS: Examination is limited due to decreased range of motion. BONES: No acute fracture is present. No bony destructive lesion is seen. JOINTS: The elbow is normally aligned. No joint effusion is seen. Chondrocalcinosis is present. Mild hypertrophic changes are seen in the medial joint. SOFT TISSUE: Soft tissue calcifications are seen near the triceps insertion site. IMPRESSION: Degenerative changes of the right elbow. DATA REPOSITORY: RADIATION DOSE DELIVERED:
== END 2022-11-27 02:23 ==
LOC: DI 02:03
PROVIDERS: PCP Family Medicine; Visit Provider Nurse Practitioner Family
DX: M25.521 Pain in right elbow (principal); M25.561 Pain in right knee; M25.461 Effusion, right knee; M17.11 Unilateral primary osteoarthritis, right knee; M19.021 Primary osteoarthritis, right elbow; M11.221 Other chondrocalcinosis, right elbow
CPT/HCPCS: 73562; 73080

== ENCOUNTER 2023-01-31 15:19 | Outpatient (REF) | payer MEDICARE, SELFPAY ==
[2023-01-31 21:19] LABS: Iron 81 ug/dL (65-175); Total Iron Binding Capacity 336 ug/dL (250-450); Transferrin Sat 24 % (20-55)
[2023-01-31 21:39] LABS: ALT 21 U/L (16-63); AST 16 U/L (15-37); Albumin 4.1 g/dL (3.4-5.0); Alkaline Phosphatase 118 U/L (46-116); Anion Gap 6.3 mmol/L (3-11); BUN 21 mg/dL (7-18); Bilirubin, Total 0.3 mg/dL (0.2-1.0); CO2 34.7 mmol/L (21.0-32.0); CREATININE 1.3 mg/dL (0.70-1.30); Calcium 9.3 mg/dL (8.5-10.1); Chloride 104 mmol/L (98-107); Estimated GFR 53.84 (mL/min/1.73m2); Ferritin 114 ng/mL (26-388); Glucose 111 mg/dL (74-106); Potassium 4.9 mmol/L (3.5-5.1); Sodium 145 mmol/L (136-145); Total Protein 7.4 g/dL (6.4-8.2); Vitamin B12 1174 pg/mL (193-986)
== END 2023-01-31 15:20 | disposition home or self-care (01) ==
LOC: NCHCN 15:19
PROVIDERS: PCP Family Medicine; Visit Provider Family Medicine
DX: D64.9 Anemia, unspecified (principal); R01.1 Cardiac murmur, unspecified; R53.1 Weakness; Z86.39 Personal history of other endocrine, nutritional and metabolic disease
CPT/HCPCS: 80053; 82607; 82728; 83540; 83550

== ENCOUNTER 2023-04-27 08:31 | Emergency (ER) | payer MEDICARE, SELFPAY ==
[2023-04-27 08:42] VITALS: BP 139/70; PULSE 100; RESP 18; TEMP 36.7; O2SAT 95
--- NOTE | 2023-04-27 09:00 | DI.RAD_ITS ---
Exam(s) XR KNEE RT 3V AP,LAT,GERA EXAM: XR KNEE RT 3V AP,LAT,GERA CLINICAL HISTORY: pain. TECHNIQUE: 2D digital imaging was performed. Three views. COMPARISON: CR XR KNEE RT 3V AP,LAT,GERA from 11/27/2022 FINDINGS: Severe degenerative changes are noted at the lateral femoral tibial joint. There is joint space narr owing and subchondral cyst formation. Chondrocalcinosis is also present. There is a prominent spurr ing at the patella. Small joint effusion is seen. Findings similar to prior. There is no evidence of fracture. IMPRESSION: severe degenerative changes. DATA REPOSITORY: RADIATION DOSE DELIVERED:
--- NOTE | 2023-04-27 09:11 | ED.GENADUL_ITS ---
Discharge Plan Disposition Patient Disposition: Home Condition: Stable Discharge Details Clinical Impression: Knee pain, right Primary Care Provider: Yvonne Solorio ED Provider: Andre Post Home Meds and New Rx's Prescriptions: New prednisone 20 mg tablet 60 mg PO DAILY 5 Days Qty: 15 0RF Continued Linzess 290 mcg capsule 290 mcg PO DAILY PRN acetaminophen 500 MG tablet 1,000 mg PO Q4H PRN melatonin 3 MG tablet 3 mg PO HS PRN Rx Instructions: 03/04/17 Dr BASURTO [facility] diclofenac sodium [Voltaren] 100 GM gel 100 gm Topical BID MDD twice Qty: 1 2RF naloxone [Narcan] 4 MG spray,non-aerosol 4 mg NS as directed 1 Days Qty: 2 0RF Rx Instructions: instill 1 spray into 1 nostril for opioid overdose-may repeat once in opposite nostril if no response fentanyl 1 EACH patch 72 hour 1 adh.patch Transdermal Q72H MDD 1 patch Q72 hours 30 Days Qty: 10 0RF Rx Instructions: 25mcg - remove old patch when applying new patch sodium chloride 7 % solution for nebulization 4 ml inhalation BID Qty: 240 12RF oxycodone 10 mg tablet extended release 12 hr 10 mg PO BID gabapentin 300 mg capsule 300 mg PO TID Rx Instructions: dose is 300mg q am, 300mg in the afternoon, then 900mg q hs hydrochlorothiazide 25 mg tablet 25 mg PO DAILY losartan 100 mg tablet 100 mg PO DAILY oxycodone 10 MG tablet 10 mg PO QID tamsulosin 0.4 mg Capsule 0.4 mg PO HS albuterol sulfate 2.5 mg /3 mL (0.083 %) Solution For Nebulization 2.5 mg Inhalation Q6H PRN famotidine 40 mg tablet 40 mg PO DAILY Patient Comments: TAKE ONE TABLET BY MOUTH EVERY DAY dextromethorphan-guaifenesin [Mucinex DM] 60-1,200 mg Tablet Extended Release 12 Hr 1 tab PO BID PRN polyethylene glycol 3350 17 gram/dose powder 17 g PO DAILY PRN (Reason: Constipation) Patient Comments: TAKE 17G ONE CAPFUL BY MOUTH MIXED IN 8OZ OF LIQUID AND DRINK ONCE DAILY NEEDED albuterol sulfate [ProAir HFA] 90 mcg/actuation HFA aerosol inhaler 2 inh INHALATION Q4H PRN Patient Comments: INHALE TWO PUFFS BY MOUTH EVERY 4 TO 6 HOURS NEEDED ondansetron 4 mg Tablet,Disintegrating 4 mg PO TID PRN triamcinolone acetonide 0.1 % cream 1 applic TOPICAL DAILY Patient Comments: APPLY TO AFFECTED AREA S ONCE DAILY finasteride 5 MG tablet 5 mg PO HS Rx Instructions: for lower urinary track symptoms latanoprost [Xalatan] 2.5 ML drops 1 drp OU HS Qty: 0 0RF cholecalciferol (vitamin D3) 1,000 UNITS tablet 1,000 units PO DAILY ipratropium-albuterol 0.5 mg-3 mg(2.5 mg base)/3 mL solution for nebulization 3 ml INHALATION DIRECTED buspirone 30 mg tablet 30 mg PO DAILY Patient Comments: TAKE ONE TABLET BY MOUTH EVERY DAY Trelegy Ellipta 100-62.5-25 mcg blister with device 1 inh INHALATION QAM Patient Comments: INHALE ONE PUFF BY MOUTH EVERY MORNING Discharge Instructions Instructions: Knee Pain (ED) Additional Instructions: your xray showed severe arthritis in the knee follow up with orthopedics, call their office tomorrow to arrange a follow up appointment if you feel more ill, have fevers or redness of the knee return to the emergency department Referrals: Rafael Ricci MD [ [facility] STAFF PHYSICIAN] - Medical Decision Making 87 yo male with hx of chronic back pain on oxycodone, who has had issues with his right knee for years and was told in the past he may need a knee replacement per the patient, comes in with right knee pain. Denies any falls or trauma, no fevers, no rashes. He arrives stable and appears well. His right knee is swollen compared to the left, it is not warm and there is no erythema. He has no other pain elsewhere, intact distal sensation. HE can range the knee though with pain. No calf swelling or tenderness. Suspect arthritis vs degenerative joint disease, will proceed with xrays. He has no erythema no warmth and no fevers/chills so doubt septic joint xray shows severe degenerative joint disease, pt stable, no changes in exam. Will place in knee brace, he has a walker already. Will try short course of steroid to see if this helps. Will refer to ortho, He is stable for d/c, return precautions given Differential Diagnosis Differential Diagnosis: arthritis, degenerative disease HPI General Date/Time Provider Initiated Documentation: 04/27/23 08:51 . Limitations to Documentation: no limitations . Information obtained by: patient . History of Present Illness 87 year old M presents to the emergency department with the chief complaint of right knee pain, described as moderate, with intensity rated at 7. Quality is described as aching, and is localized to the right and lower extremity. Patient reports no radiation. Patient started experiencing this year(s) (2) and it has been intermittent. No relieving factors improve symptom(s), No exacerbating factors reported . Patient notes no other symptoms.. Patient did receive the following treatments prior to arrival, none Related Data Home Medications Medication Instructions Recorded Confirmed acetaminophen 500 mg tablet 1,000 mg PO Q4H PRN 07/09/15 11/17/22 melatonin 3 mg tablet 3 mg PO HS PRN 03/07/17 11/17/22 latanoprost 0.005 % eye drops 1 drp OU HS ##0 03/09/17 11/17/22 (Xalatan) diclofenac sodium 1 % topical gel 100 gm topical BID ##1 09/11/17 11/17/22 (Voltaren) naloxone 4 mg/actuation nasal 4 mg NS as directed 1 day #2 sprays 01/23/18 11/17/22 spray (Narcan) cholecalciferol (vitamin D3) 25 1,000 units PO DAILY 03/14/18 11/17/22 mcg (1,000 unit) tablet fentanyl 12 mcg/hr transdermal 1 adh.patch transdermal Q72H 30 03/26/18 11/17/22 patch days ##10 oxycodone 10 mg tablet 10 mg PO QID 06/13/18 11/17/22 albuterol sulfate 2.5 mg/3 mL 2.5 mg inhalation Q6H PRN 04/21/19 11/17/22 (0.083 %) solution for nebulization tamsulosin 0.4 mg capsule 0.4 mg PO HS 04/21/19 11/17/22 linaclotide 290 mcg capsule 290 mcg PO DAILY PRN 05/22/19 11/17/22 (Linzess) buspirone 30 mg tablet 30 mg PO DAILY 02/24/21 11/17/22 fluticasone fur. 100 mcg-umeclid 1 inh inhalation QAM 02/24/21 11/17/22 62.5 mcg-vilant 25 mcg inhalat.powder (Trelegy Ellipta) ipratropium 0.5 mg-albuterol 3 mg 3 ml inhalation DIRECTED 02/24/21 11/17/22 (2.5 mg base)/3 mL nebulization soln famotidine 40 mg tablet 40 mg PO DAILY 02/25/21 11/17/22 albuterol sulfate 90 mcg/actuation 2 inh inhalation Q4H PRN 03/02/21 11/17/22 aerosol inhaler (ProAir HFA) dextromethorphan-guaifenesin ER 60 1 tab PO BID PRN 03/02/21 11/17/22 mg-1,200 mg tab,extend release,12hr (Mucinex DM) finasteride 5 mg tablet 5 mg PO HS 03/02/21 11/17/22 ondansetron 4 mg disintegrating 4 mg PO TID PRN 03/02/21 11/17/22 tablet polyethylene glycol 3350 17 17 g PO DAILY PRN Constipation 03/02/21 11/17/22 gram/dose oral powder triamcinolone acetonide 0.1 % 1 applic topical DAILY 03/02/21 11/17/22 topical cream sodium chloride 7 % for 4 ml inhalation BID #240 mL 05/08/22 11/17/22 nebulization gabapentin 300 mg capsule 300 mg PO TID 02/06/23 hydrochlorothiazide 25 mg tablet 25 mg PO DAILY 02/06/23 losartan 100 mg tablet 100 mg PO DAILY 02/06/23 oxycodone 10 mg tablet,extended 10 mg PO BID 02/06/23 release,12 hr prednisone 20 mg tablet 60 mg PO DAILY 5 days #15 tabs 04/27/23 Previous Rx's Medication Instructions Recorded latanoprost 0.005 % eye drops 1 drp OU HS ##0 03/09/17 (Xalatan) diclofenac sodium 1 % topical gel 100 gm topical BID ##1 09/11/17 (Voltaren) naloxone 4 mg/actuation nasal 4 mg NS as directed 1 day #2 sprays 01/23/18 spray (Narcan) fentanyl 12 mcg/hr transdermal 1 adh.patch transdermal Q72H 30 03/26/18 patch days ##10 sodium chloride 7 % for 4 ml inhalation BID #240 mL 05/08/22 nebulization prednisone 20 mg tablet 60 mg PO DAILY 5 days #15 tabs 04/27/23 Allergies Allergy/AdvReac Type Severity Reaction Status Date / Time aspirin AdvReac Intermediate GI Bleeding Verified 11/17/22 14:09 NSAIDS (Non-Steroidal AdvReac Intermediate GI Bleeding Verified 11/17/22 14:09 Anti-Inflamma General Stated Complaint: Orthopedic DIAZ: 3 Review of Systems All systems reviewed & are unremarkable except as noted in HPI and below Constitutional Constitutional: Denies chills, Denies fever(s) and Denies weakness Cardiovascular Cardiovascular: Denies chest pain and Denies dyspnea Respiratory Respiratory: Denies cough and Denies dyspnea Gastrointestinal Gastrointestinal: Denies abdominal pain, Denies nausea and Denies vomiting Integumentary/Breasts Skin/Breast: Denies rash Neurologic Neurologic: Denies weakness Psychiatric Psychiatric: Denies depression PFSH All Active Problems (Updated 04/27/23 @ 10:28 by Andre Post MD) Knee pain, right (Acute) 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 exposure (Acute) Respiratory failure with hypoxia (Acute) Bronchiectasis (Acute) Nocturnal hypoxia (Acute) Restrictive lung disease (Acute) Foreign body in bladder and urethra (Acute) Dislodged Garcia catheter (Acute) Hematuria (Acute) Acute UTI (Acute) Discharge planning issues (Acute) DVT prophylaxis (Acute) Abdominal pain (Acute) BPH (benign prostatic hyperplasia) (Chronic) Essential hypertension (Acute) Lung infiltrate (Acute) UTI (urinary tract infection) (Acute) 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 Ayala Extraction of cataract (02/15/16) [employer] R with IOL; and L as well, Dr. Dickinson in [place] [employer] Repair of inguinal hernia (08/31/11) Right sided with orchiectomy Rotator Cuff Repair (~1996) Right spinal stenosis (~2005) L foot drop result; L4 laminectomy and L4-5 R discectomy, Dr Campbell; second procedure at [place], [place] approx 02/2017 L1-L2 [address] [place] [facility] [place] replacement of [place] (~1999) Right hip, later revised in 2005 left side 2006 Family History Mother , CVA at age 85. Diabetes age 50 Essential hypertension Stroke Uterine cancer Father , Colon CA at age 87. Colon cancer Sister Breast cancer Sister Ovarian cancer Sister Ovarian cancer Sister No problems noted. Sister No problems noted. Sister No problems noted. Sister No problems noted. Sister No problems noted. Brother Diabetes Brother No problems noted. Brother No problems noted. Social History Smoking/Tobacco Use Status: Never Smoking risk assessment performed?: Yes Alcohol Intake: never Drug use: Never Substance use type: does not use Do you feel safe at home: Yes Do you feel safe in your relationship?: Yes Exam Const General: no acute distress Orientation: alert HENMT Head: normal to inspection Ears: external ears normal General nose exam: external nose normal Mouth: moist mucous membranes Eyes General: appearance normal, both eyes and all related structures Neck Neck: normal visual inspection Resp Effort & Inspection: normal respiratory effort and able to speak in complete sentences Cardio Rate: regular rate Skin General skin exam: no rashes or lesions noted Neuro General: patient alert and patient oriented x3 Extrem General: capillary refill normal Psych Mental Status: mental status grossly normal Course Vital Signs Vital signs: Vital Signs Temperature 36.7 C 04/27/23 08:42 Pulse 100 H 04/27/23 08:42 Respiratory Rate 18 04/27/23 08:42 Blood Pressure 139/70 04/27/23 08:42 Pulse Oximetry 95 04/27/23 08:42 Temperature 36.7 C 04/27/23 08:42 Temperature Source Temporal Artery Scan 04/27/23 08:42 Pulse 100 H 04/27/23 08:42 Respiratory Rate 18 04/27/23 08:42 Blood Pressure 139/70 04/27/23 08:42 Blood Pressure Position Sitting 04/27/23 08:42 Pulse Oximetry 95 04/27/23 08:42 Oxygen Delivery Method Room Air 04/27/23 08:42 Oxygen Flow Rate 0 04/27/23 08:42
[2023-04-27] MEDS: Acetaminophen 500 MG TAB 1000 MG PO (09:15)
== END 2023-04-27 10:44 | disposition home or self-care (01) ==
PROVIDERS: Emergency Provider Emergency Medicine; PCP Family Medicine
DX: M25.561 Pain in right knee (principal); M17.11 Unilateral primary osteoarthritis, right knee; M25.461 Effusion, right knee; M11.261 Other chondrocalcinosis, right knee; I10 Essential (primary) hypertension
CPT/HCPCS: 73562; 99283

== ENCOUNTER 2023-05-03 08:10 | Emergency (ER) | payer MEDICARE, SELFPAY ==
[2023-05-03] VITALS (68 sets, daily range): BP systolic 92–147; BP diastolic 50–96; PULSE 58–124; RESP 11–36; TEMP 36.3–37.3; O2SAT 92–97
--- NOTE | 2023-05-03 08:00 | RT.EKG_ITS ---
APPROVED REPORT Exam: Resting ECG Reason for Exam: syncopal episode Patient Location: E HR:96 bpm ECG Measurements Heart Rate 96 AXIS TX 164 P 54 QRSd 131 QRS -34 QT 371 T -44 QTc 465 Conclusion Sinus rhythm...normal P axis, V-rate 60- 99 Atrial premature complexes...SV complexes w/ short R-R intvls Right bundle branch block...QRSd>120, terminal axis(90,270) Inferior infarct, age indeterminate...Q>35mS, T neg, II III aVF sinus rhythm, RBBB, PAC
--- NOTE | 2023-05-03 08:30 | DI.CT_ITS ---
Exam(s) CT ABDOMEN PELVIS W EXAM: CT ABDOMEN PELVIS W CLINICAL HISTORY: gi bleed. TECHNIQUE: Imaging Protocol: Axial computed tomography images with coronal and sagittal reformatted images were created and reviewed CONTRAST MATERIAL: Intravenous: Omnipaque 350 Contrast volume:100 ml Oral: yes / no COMPARISON: CT CT ABDOMEN PELVIS W from 02/24/[address] PELVIC WO from 02/27/2021 FINDINGS: Exam limited by motion. Pelvis it is limited by artifact from bilateral hip prostheses core obscurin g visualization of the prostate and portion of the bladder and colon. ABDOMEN: Lung Bases: Pleural calcification. Scarring right lower lobe. Dependent changes bilaterally. Respi ratory motion. Coronary artery calcifications. Liver: Small liver cyst. No measurable mass. Gallbladder and biliary tract: No radiodense calculus or dilation. Pancreas: Somewhat atrophic. Motion in the region of the head of the pancreas.. Spleen: Normal. Kidneys: Normal size, contour and axis. No radiodense stones or obstructive uropathy. No suspicious m asses seen. Adrenal glands: No masses seen. Abdominal Aorta: Abdominal portion non-dilated. Soft tissues: Unremarkable. PELVIS: Bladder: Mild wall thickening. No calculi.No focal mass. Bowel: Dilatation and thickening of the wall of the descending duodenum could indicate duodenitis. Th ere is unfortunately motion in this area. No definite pancreatic inflammation. Peritoneal cavity: No ascites, collection or mesenteric inflammatory response. Bones: Severe degenerative changes of the lumbar spine. Bilateral hip prostheses. Reproductive organs: Markedly enlarged prostate. Lymph nodes: Unremarkable. Impression: Dilatation and wall thickening of the descending duodenum could indicate duodenitis. No evidence of p erforation. There is no evidence of bowel obstruction. Findings called to Dr. Jasso of the emergency department. RADIATION DOSE DELIVERED: 1,431.13mGy.cm Total DLP DATA REPOSITORY: All CT scans at this facility are submitted to the National Radiology Data Registry (NRDR) Dose Index Registry (DIR) with the [employer] ([employer]). RADIATION OPTIMIZATION: All CT scans at this facility use at least one of these dose optimization te chniques: automated exposure control; mA and/or kV adjustment per patient size (includes targeted exa ms where dose is matched to clinical indication); or iterative reconstruction.
[2023-05-03] MEDS: Normal Saline 1,000 ML 1000 ML IV (08:40)
--- NOTE | 2023-05-03 08:42 | ED.GENADUL_ITS ---
Discharge Plan Disposition Patient Disposition: Transfer-Acute Inpatient Care Specific Acute Inpt Facility: [facility] Condition: Serious Discharge Details Chief Complaint: GI Bleed Clinical Impression: Acute GI bleeding, Anemia Primary Care Provider: Yvonne Solorio ED Provider: Jerad Suarez Home Meds and New Rx's Prescriptions: No Action Linzess 290 mcg capsule 290 mcg PO DAILY PRN acetaminophen 500 MG tablet 1,000 mg PO Q4H PRN melatonin 3 MG tablet 3 mg PO HS PRN Rx Instructions: 03/04/17 Dr BASURTO [facility] diclofenac sodium [Voltaren] 100 GM gel 100 gm Topical BID MDD twice Qty: 1 2RF naloxone [Narcan] 4 MG spray,non-aerosol 4 mg NS as directed 1 Days Qty: 2 0RF Rx Instructions: instill 1 spray into 1 nostril for opioid overdose-may repeat once in opposite nostril if no response fentanyl 1 EACH patch 72 hour 1 adh.patch Transdermal Q72H MDD 1 patch Q72 hours 30 Days Qty: 10 0RF Rx Instructions: 25mcg - remove old patch when applying new patch sodium chloride 7 % solution for nebulization 4 ml inhalation BID Qty: 240 12RF oxycodone 10 mg tablet extended release 12 hr 10 mg PO BID hydrochlorothiazide 25 mg tablet 25 mg PO DAILY losartan 100 mg tablet 100 mg PO DAILY oxycodone 10 MG tablet 10 mg PO QID PRN (Reason: Pain) tamsulosin 0.4 mg Capsule 0.4 mg PO HS albuterol sulfate 2.5 mg /3 mL (0.083 %) Solution For Nebulization 2.5 mg Inhalation Q6H PRN famotidine 40 mg tablet 40 mg PO DAILY Patient Comments: TAKE ONE TABLET BY MOUTH EVERY DAY dextromethorphan-guaifenesin [Mucinex DM] 60-1,200 mg Tablet Extended Release 12 Hr 1 tab PO BID PRN polyethylene glycol 3350 17 gram/dose powder 17 g PO DAILY PRN (Reason: Constipation) Patient Comments: TAKE 17G ONE CAPFUL BY MOUTH MIXED IN 8OZ OF LIQUID AND DRINK ONCE DAILY NEEDED albuterol sulfate [ProAir HFA] 90 mcg/actuation HFA aerosol inhaler 2 inh INHALATION Q4H PRN Patient Comments: INHALE TWO PUFFS BY MOUTH EVERY 4 TO 6 HOURS NEEDED ondansetron 4 mg Tablet,Disintegrating 4 mg PO TID PRN triamcinolone acetonide 0.1 % cream 1 applic TOPICAL DAILY Patient Comments: APPLY TO AFFECTED AREA S ONCE DAILY finasteride 5 MG tablet 5 mg PO HS Rx Instructions: for lower urinary track symptoms gabapentin 600 mg tablet 600 mg PO QID Patient Comments: TAKE ONE TABLET BY MOUTH FOUR TIMES A DAY DIRECTED latanoprost [Xalatan] 2.5 ML drops 1 drp OU HS Qty: 0 0RF cholecalciferol (vitamin D3) 1,000 UNITS tablet 1,000 units PO DAILY ipratropium-albuterol 0.5 mg-3 mg(2.5 mg base)/3 mL solution for nebulization 3 ml INHALATION DIRECTED buspirone 30 mg tablet 30 mg PO DAILY Patient Comments: TAKE ONE TABLET BY MOUTH EVERY DAY Trelegy Ellipta 100-62.5-25 mcg blister with device 1 inh INHALATION QAM Patient Comments: INHALE ONE PUFF BY MOUTH EVERY MORNING Medical Decision Making 87-year-old male brought in by EMS for evaluation of decreased responsiveness this home and bloody stool, patient covered in hematochezia, noted to be pale dry and fatigued. Patient is alert following commands. Maintaining hemodynamics currently however in an irregular rhythm EKG showing frequent PACs and right bundle branch block with T wave inversions and depressions; no chest pain or shortness of breath. Concern for GI bleed lower versus brisk upper. Must consider malignancy versus colitis versus C. difficile given recent antibiotics versus peptic ulcer disease versus variceal bleed. Ultrasound- guided IV placed left brachial, fluids started, loaded with Zofran and pantoprazole and octreotide. Type and screen INR been drawn, basic labs, CT abdomen pelvis chest x-ray. Given patient's clinical examination will likely need blood transfusion. Disposition pending reassessment and results 10: 40 evidence of duodenitis likely cause of brisk upper GI bleed. Relative anemia compared to baseline around 14. Given clinical presentation hemodynamics stat consultation for transfer has been initiated with GI at [facility] with hopes that he will be accepted for critical care placement. 11: 33 [facility] transfer has been in contact with [place] rep[employer] sheet and GI team to see if this patient could go to the facility however transfer does not have interventional team or anesthesia available for possible interventional needs/endoscopy. Patient will be transferred ED to ED to [facility]. Patient amenable to transfer. 11: 41 patient removed his own IV in his left AC as it was pinching him. Patient has a point of access on his right arm. Will work on repeat second point of access. 12: 22 transfer center staff indicate that ICU staff at [facility] do not believe patient needs ICU level care. Transfer center unable to get a hold of GI team as they are currently in a procedure. I have ordered 2 units PRBC given patient's initial clinical appearance vital signs and downtrending hemoglobin. Patient will need ICU level care have requested to speak with critical care team at [facility] 12: 38 discussed case with [facility] GI team who agrees that this is likely a upper GI bleed and patient will require urgent upper endoscopy and ICU level care. Transfer center has put me in touch with telemetry emergency physician for acceptance ICU team to meet patient in emergency department for initial screening upon his arrival. Dr. Blils accepting ED physician HPI General Date/Time Provider Initiated Documentation: 05/03/23 08:19 . 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 Related Data Home Medications Medication Instructions Recorded Confirmed acetaminophen 500 mg tablet 1,000 mg PO Q4H PRN 07/09/15 11/17/22 melatonin 3 mg tablet 3 mg PO HS PRN 03/07/17 11/17/22 latanoprost 0.005 % eye drops 1 drp OU HS ##0 03/09/17 05/03/23 (Xalatan) diclofenac sodium 1 % topical gel 100 gm topical BID ##1 09/11/17 11/17/22 (Voltaren) naloxone 4 mg/actuation nasal 4 mg NS as directed 1 day #2 sprays 01/23/18 11/17/22 spray (Narcan) cholecalciferol (vitamin D3) 25 1,000 units PO DAILY 03/14/18 11/17/22 mcg (1,000 unit) tablet fentanyl 12 mcg/hr transdermal 1 adh.patch transdermal Q72H 30 03/26/18 05/03/23 patch days ##10 oxycodone 10 mg tablet 10 mg PO QID PRN Pain 06/13/18 05/03/23 albuterol sulfate 2.5 mg/3 mL 2.5 mg inhalation Q6H PRN 04/21/19 05/03/23 (0.083 %) solution for nebulization tamsulosin 0.4 mg capsule 0.4 mg PO HS 04/21/19 05/03/23 linaclotide 290 mcg capsule 290 mcg PO DAILY PRN 05/22/19 05/03/23 (Linzess) buspirone 30 mg tablet 30 mg PO DAILY 02/24/21 11/17/22 fluticasone fur. 100 mcg-umeclid 1 inh inhalation QAM 02/24/21 05/03/23 62.5 mcg-vilant 25 mcg inhalat.powder (Trelegy Ellipta) ipratropium 0.5 mg-albuterol 3 mg 3 ml inhalation DIRECTED 02/24/21 11/17/22 (2.5 mg base)/3 mL nebulization soln famotidine 40 mg tablet 40 mg PO DAILY 02/25/21 11/17/22 albuterol sulfate 90 mcg/actuation 2 inh inhalation Q4H PRN 03/02/21 05/03/23 aerosol inhaler (ProAir HFA) dextromethorphan-guaifenesin ER 60 1 tab PO BID PRN 03/02/21 11/17/22 mg-1,200 mg tab,extend release,12hr (Mucinex DM) finasteride 5 mg tablet 5 mg PO HS 03/02/21 05/03/23 ondansetron 4 mg disintegrating 4 mg PO TID PRN 03/02/21 11/17/22 tablet polyethylene glycol 3350 17 17 g PO DAILY PRN Constipation 03/02/21 05/03/23 gram/dose oral powder triamcinolone acetonide 0.1 % 1 applic topical DAILY 03/02/21 11/17/22 topical cream sodium chloride 7 % for 4 ml inhalation BID #240 mL 05/08/22 11/17/22 nebulization hydrochlorothiazide 25 mg tablet 25 mg PO DAILY 02/06/23 05/03/23 losartan 100 mg tablet 100 mg PO DAILY 02/06/23 05/03/23 oxycodone 10 mg tablet,extended 10 mg PO BID 02/06/23 release,12 hr gabapentin 600 mg tablet 600 mg PO QID 05/03/23 05/03/23 Previous Rx's Medication Instructions Recorded latanoprost 0.005 % eye drops 1 drp OU HS ##0 03/09/17 (Xalatan) diclofenac sodium 1 % topical gel 100 gm topical BID ##1 09/11/17 (Voltaren) naloxone 4 mg/actuation nasal 4 mg NS as directed 1 day #2 sprays 01/23/18 spray (Narcan) fentanyl 12 mcg/hr transdermal 1 adh.patch transdermal Q72H 30 03/26/18 patch days ##10 sodium chloride 7 % for 4 ml inhalation BID #240 mL 05/08/22 nebulization Allergies Allergy/AdvReac Type Severity Reaction Status Date / Time aspirin AdvReac Intermediate GI Bleeding Verified 05/03/23 09:51 NSAIDS (Non-Steroidal AdvReac Intermediate GI Bleeding Verified 05/03/23 09:51 Anti-Inflamma General Stated Complaint: GI Bleed DIAZ: 2 Review of Systems Narrative: Review of Systems Constitutional: Fatigue Eyes: negative ENT: negative Cardiovascular: negative Respiratory: negative Gastrointestinal: GI bleed : negative Musculoskeletal: negative Skin: negative Neurologic: negative Psych: negative PFSH All Active Problems (Updated 05/03/23 @ 12:42 by Jerad Suarez MD) Knee pain, right (Acute) Acute GI bleeding (Acute) Anemia (Chronic) 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 exposure (Acute) Respiratory failure with hypoxia (Acute) Bronchiectasis (Acute) Nocturnal hypoxia (Acute) Restrictive lung disease (Acute) Foreign body in bladder and urethra (Acute) Dislodged Garcia catheter (Acute) Hematuria (Acute) Acute UTI (Acute) Discharge planning issues (Acute) DVT prophylaxis (Acute) Abdominal pain (Acute) BPH (benign prostatic hyperplasia) (Chronic) Essential hypertension (Acute) Lung infiltrate (Acute) UTI (urinary tract infection) (Acute) 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 Ayala Extraction of cataract (02/15/16) [place] R with IOL; and L as well, Dr. Dickinson in [place] Repair of inguinal hernia (08/31/11) Right sided with orchiectomy Rotator Cuff Repair (~1996) Right spinal stenosis (~2005) L foot drop result; L4 laminectomy and L4-5 R discectomy, Dr Campbell; second procedure at [place], [place] approx 02/2017 L1-L2 [address] 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 Diabetes age 50 Essential hypertension Stroke Uterine cancer Father , Colon CA at age 87. Colon cancer Sister Breast cancer Sister Ovarian cancer Sister Ovarian cancer Sister No problems noted. Sister No problems noted. Sister No problems noted. Sister No problems noted. Sister No problems noted. Brother Diabetes Brother No problems noted. Brother No problems noted. Social History Smoking/Tobacco Use Status: Never Smoking risk assessment performed?: Yes Alcohol Intake: never Drug use: Never Substance use type: does not use Housing: house Do you feel safe at home: Yes Do you feel safe in your relationship?: Yes Exam Narrative Exam Narrative: Physical Examination General: Fatigued HEENT: normocephalic, atraumatic; PERRL, EOM intact, conjunctiva pallor; no nasal discharge; dry oral mucosa Neck: supple, trachea midline; full ROM Chest: normal to inspection Respiratory: normal respiratory effort, speaking in full sentences, clear to auscultation, no wheezing, rales or rhonchi Cardiac: Rhythm irregular, S1S2 intact, no murmurs rubs or gallops GI: abdomen soft, non-tender, non-distended; no palpable mass or hepatosplenomegaly; hematochezia within rectal vault Skin: no lesions, rashes or trauma appreciated; covered in bloody stool Neuro: AAOx3, normal speech, moving all extremities; following commands Psych: Appropriate mood and affect Course Vital Signs Vital signs: Vital Signs Temperature 36.3 C L 05/03/23 08:09 Pulse 72 05/03/23 08:09 Respiratory Rate 20 05/03/23 08:09 Blood Pressure 112/80 05/03/23 08:09 Pulse Oximetry 92 05/03/23 08:09 Temperature 36.3 C L 05/03/23 08:09 Temperature Source Tympanic 05/03/23 08:09 Pulse 90 05/03/23 08:16 Pulse 98 H 05/03/23 08:20 Respiratory Rate 20 05/03/23 08:20 Blood Pressure 120/56 L 05/03/23 08:16 Blood Pressure Mean 70 05/03/23 08:16 Blood Pressure Position Sitting 05/03/23 08:09 Pulse Oximetry 92 05/03/23 08:09 Oxygen Delivery Method Room Air 05/03/23 08:09 Oxygen Flow Rate 0 05/03/23 08:09
[2023-05-03 08:48] LABS: Abs Immature Grans 0.15 10^3/uL (0.0-0.06); Basophils % 0.1; HCT 33.1 % (40.0-50.0); HGB 11.6 g/dL (13.5-17.5); Immature Grans % 0.7; Lymphocytes % 10.3; MCH 32.2 pg (27.0-33.0); MCV 92 fL (80-95); MPV 10.5 fL (8.0-11.0); Monocytes % 10.9; Platelet Count 364 10^3/uL (130-400); RDW 12.7 % (11.8-14.1); RDW-SD 42.4 fL; WBC 21.31 10^3/uL (4.4-10.8)
[2023-05-03] MEDS: Octreotide 100 MCG/ML VIAL 50 MCG IVP (08:48)
[2023-05-03 08:49] LABS: Absolute Basophil Count 0.02 10^3/uL (0.0-0.2); Absolute Lymphocyte Count 2.19 10^3/uL (1.2-3.4); Absolute Monocyte Count 2.32 10^3/uL (0.1-0.8); Absolute Neutrophil Count 16.62 10^3/uL (1.2-6.7)
[2023-05-03] MEDS: Ondansetron 4 MG/2 ML VIAL IVP (08:55)
[2023-05-03] MEDS: Pantoprazole 40 MG VIAL 80 MG IVP (08:59)
[2023-05-03 09:03] LABS: ALT 52 U/L (16-63); AST 42 U/L (15-37); Albumin 3.2 g/dL (3.4-5.0); Alkaline Phosphatase 66 U/L (46-116); Anion Gap 9.8 mmol/L (3-11); BUN 71 mg/dL (7-18); Bilirubin, Total 0.6 mg/dL (0.2-1.0); CO2 27.2 mmol/L (21.0-32.0); CREATININE 1.4 mg/dL (0.70-1.30); Calcium 8.4 mg/dL (8.5-10.1); Chloride 99 mmol/L (98-107); Estimated GFR 49.25 (mL/min/1.73m2); Glucose 151 mg/dL (74-106); INR 1.1 (0.9-1.1); Lipase 32 U/L (16-77); PTT Activated 20.1 sec (21.5-31.9); Potassium 4.2 mmol/L (3.5-5.1); Sodium 136 mmol/L (136-145); Total Protein 6.3 g/dL (6.4-8.2)
[2023-05-03] MEDS: Normal Saline - Diluent 50 ML VIAL IJ (09:44)
[2023-05-03] MEDS: Omnipaque 350 MG/ML 100 ML BTL IJ (09:44)
--- NOTE | 2023-05-03 09:48 | DI.RAD_ITS ---
Exam(s) XR CHEST 1V IN DI DEPT EXAM: XR CHEST 1V IN DI DEPT CLINICAL HISTORY: weakness, gi bleed TECHNIQUE: 2D digital imaging was performed. COMPARISON: CT CT CHEST WO from 02/06/[address] ABDOMEN PELVIS W from 05/03/2023 FINDINGS: Exam is limited by multiple leads overlying the chest and poor pulmonary inflation. The majority of the chest is included on the abdomen pelvic CT performed earlier the same day which does not show ac marni abnormalities. LUNGS: Pleural plaques noted right upper chest. No infiltrate. HEART: Normal size. AORTA: Normal diameter. BONES: Degenerative changes in the spine. Soft tissues: Unremarkable. IMPRESSION: No acute findings. DATA REPOSITORY: RADIATION DOSE DELIVERED:
[2023-05-03 09:51] LABS: Diff Comment Diff Reviewed
[2023-05-03 09:52] LABS: RBC Morphology Normal
[2023-05-03 11:42] LABS: HCT 27.7 % (40.0-50.0); HGB 9.8 g/dL (13.5-17.5)
== END 2023-05-03 14:30 | disposition short-term general hospital (02) ==
PROVIDERS: Emergency Provider Emergency Medicine; PCP Family Medicine
DX: K92.2 Gastrointestinal hemorrhage, unspecified (principal); D64.9 Anemia, unspecified; E11.9 Type 2 diabetes mellitus without complications; I10 Essential (primary) hypertension
CPT/HCPCS: 36415; 36430; 80053; 83690; 86850; 86900; 86901; 86920; 93005; 96361; 96374; 96375; 99285; 71045; 74177; 83735; 85014; 85018; 85025; 85610; 85730; 93010; J2354; J2405; J3490; P9016

== ENCOUNTER 2023-05-21 08:54 | Emergency (ER) | payer MEDICARE, SELFPAY ==
[2023-05-21] VITALS (14 sets, daily range): BP systolic 119–152; BP diastolic 56–80; PULSE 51–77; RESP 20; TEMP 37; O2SAT 87–94
--- NOTE | 2023-05-21 09:08 | W.ED.GENAD ---
Discharge Plan Disposition Patient Disposition: Home Condition: Improving Discharge Details Chief Complaint: Abd Prob Clinical Impression: Abdominal pain Primary Care Provider: Yvonne Solorio ED Provider: Jerad Suarez Home Meds and New Rx's Prescriptions: No Action Linzess 290 mcg capsule 290 mcg PO DAILY PRN acetaminophen 500 MG tablet 1,000 mg PO Q4H PRN Patient Comments: Not on medication list melatonin 3 MG tablet 3 mg PO HS PRN Patient Comments: Not on medication list Rx Instructions: 03/04/17 Dr BASURTO [facility] diclofenac sodium [Voltaren] 100 GM gel 100 gm Topical BID MDD twice Qty: 1 2RF Patient Comments: Not on medication list naloxone [Narcan] 4 MG spray,non-aerosol 4 mg NS as directed 1 Days Qty: 2 0RF Rx Instructions: instill 1 spray into 1 nostril for opioid overdose-may repeat once in opposite nostril if no response fentanyl 1 EACH patch 72 hour 1 adh.patch Transdermal Q72H MDD 1 patch Q72 hours 30 Days Qty: 10 0RF Rx Instructions: 25mcg - remove old patch when applying new patch sodium chloride 7 % solution for nebulization 4 ml inhalation BID Qty: 240 12RF Patient Comments: Not on medication list oxycodone 10 mg tablet extended release 12 hr 10 mg PO BID Patient Comments: Not on medication list hydrochlorothiazide 25 mg tablet 25 mg PO DAILY losartan 100 mg tablet 100 mg PO DAILY oxycodone 10 MG tablet 10 mg PO QID PRN (Reason: Pain) tamsulosin 0.4 mg Capsule 0.4 mg PO HS albuterol sulfate 2.5 mg /3 mL (0.083 %) Solution For Nebulization 2.5 mg Inhalation Q6H PRN famotidine 40 mg tablet 40 mg PO DAILY Patient Comments: Not on medication list dextromethorphan-guaifenesin [Mucinex DM] 60-1,200 mg Tablet Extended Release 12 Hr 1 tab PO BID PRN Patient Comments: Not on medication list polyethylene glycol 3350 17 gram/dose powder 17 g PO DAILY PRN (Reason: Constipation) Patient Comments: TAKE 17G ONE CAPFUL BY MOUTH MIXED IN 8OZ OF LIQUID AND DRINK ONCE DAILY NEEDED albuterol sulfate [ProAir HFA] 90 mcg/actuation HFA aerosol inhaler 2 inh INHALATION Q4H PRN Patient Comments: INHALE TWO PUFFS BY MOUTH EVERY 4 TO 6 HOURS NEEDED ondansetron 4 mg Tablet,Disintegrating 4 mg PO TID PRN Patient Comments: Not on medication list triamcinolone acetonide 0.1 % cream 1 applic TOPICAL DAILY Patient Comments: Not on medication list finasteride 5 MG tablet 5 mg PO HS Rx Instructions: for lower urinary track symptoms gabapentin 600 mg tablet 600 mg PO QID Patient Comments: TAKE ONE TABLET BY MOUTH FOUR TIMES A DAY DIRECTED nystatin 100,000 unit/gram cream 1 applic TOPICAL BID Patient Comments: APPLY LIBERALLY TO AFFECTED AREA(S) TWO TIMES A DAY DIRECTED latanoprost [Xalatan] 2.5 ML drops 1 drp OU HS Qty: 0 0RF cholecalciferol (vitamin D3) 1,000 UNITS tablet 1,000 units PO DAILY Patient Comments: Not on medication list ipratropium-albuterol 0.5 mg-3 mg(2.5 mg base)/3 mL solution for nebulization 3 ml INHALATION DIRECTED buspirone 30 mg tablet 30 mg PO DAILY Patient Comments: Not on medication list Trelegy Ellipta 100-62.5-25 mcg blister with device 1 inh INHALATION QAM Patient Comments: INHALE ONE PUFF BY MOUTH EVERY MORNING Discharge Instructions Instructions: Abdominal Pain (ED) Additional Instructions: Please follow-up closely with your primary care physician and GI specialist. Please return to the emergency department for any worsening symptoms Medical Decision Making 87-year-old male brought in by EMS for evaluation of blood in stool noted blood streak in his stool this morning, patient endorses acute on chronic abdominal discomfort, no nausea no vomiting, recent visit for upper GI bleed evidence of duodenitis on CT patient was transferred to [facility] for GI evaluation possible endoscopy, will attempt to obtain records from last visit at [facility]. Patient is hemodynamically stable nontoxic nonperitoneal. Rectal exam normal no external or internal hemorrhoids appreciated no fissures no mass appreciated, normal stool guaiac negative. Consider recurrent gastritis versus duodenitis versus less likely pancreatitis, at this time no evidence of acute GI bleed however will obtain basic labs will provide GI cocktail and close reassessment, likely close follow-up with GI pending results and reassess 9: 40 records were obtained from most recent admission to [facility], patient underwent 2 upper endoscopies with localized epinephrine injection into multiple duodenal ulcers as well as bipolar cauterization, patient required massive transfusion and ICU level of care while at [facility], eventually underwent IR guided embolization of GDA. Hemoglobin at discharge was 8.9. 10: 41 no evidence of active bleeding. Patient is hemodynamically stable. Feeling better after GI cocktail. Likely component of continued duodenal ulcers without active bleeding. Patient is taking PPI, instructed to avoid steroids NSAIDs and similar medications, given strict return precautions for any worsening symptoms. Patient feels comfortable going home and following up. HPI General Date/Time Provider Initiated Documentation: 05/21/23 09:05. HPI Narrative: 87-year-old male presents brought in by EMS for possible GI bleed, noted some blood streaking in his stool this morning, patient recently had an upper GI bleed was transferred to [facility] for endoscopy. Patient does have abdominal discomfort. Related Data Home Medications Medication Instructions Recorded Confirmed acetaminophen 500 mg tablet 1,000 mg PO Q4H PRN 07/09/15 11/17/22 melatonin 3 mg tablet 3 mg PO HS PRN 03/07/17 11/17/22 latanoprost 0.005 % eye drops 1 drp OU HS ##0 03/09/17 05/21/23 (Xalatan) diclofenac sodium 1 % topical gel 100 gm topical BID ##1 09/11/17 11/17/22 (Voltaren) naloxone 4 mg/actuation nasal 4 mg NS as directed 1 day #2 sprays 01/23/18 05/21/23 spray (Narcan) cholecalciferol (vitamin D3) 25 1,000 units PO DAILY 03/14/18 11/17/22 mcg (1,000 unit) tablet fentanyl 12 mcg/hr transdermal 1 adh.patch transdermal Q72H 30 03/26/18 05/21/23 patch days ##10 oxycodone 10 mg tablet 10 mg PO QID PRN Pain 06/13/18 05/21/23 albuterol sulfate 2.5 mg/3 mL 2.5 mg inhalation Q6H PRN 04/21/19 05/21/23 (0.083 %) solution for nebulization tamsulosin 0.4 mg capsule 0.4 mg PO HS 04/21/19 05/21/23 linaclotide 290 mcg capsule 290 mcg PO DAILY PRN 05/22/19 05/21/23 (Linzess) buspirone 30 mg tablet 30 mg PO DAILY 02/24/21 11/17/22 fluticasone fur. 100 mcg-umeclid 1 inh inhalation QAM 02/24/21 05/21/23 62.5 mcg-vilant 25 mcg inhalat.powder (Trelegy Ellipta) ipratropium 0.5 mg-albuterol 3 mg 3 ml inhalation DIRECTED 02/24/21 05/21/23 (2.5 mg base)/3 mL nebulization soln famotidine 40 mg tablet 40 mg PO DAILY 02/25/21 11/17/22 albuterol sulfate 90 mcg/actuation 2 inh inhalation Q4H PRN 03/02/21 05/21/23 aerosol inhaler (ProAir HFA) dextromethorphan-guaifenesin ER 60 1 tab PO BID PRN 03/02/21 11/17/22 mg-1,200 mg tab,extend release,12hr (Mucinex DM) finasteride 5 mg tablet 5 mg PO HS 03/02/21 05/21/23 ondansetron 4 mg disintegrating 4 mg PO TID PRN 03/02/21 11/17/22 tablet polyethylene glycol 3350 17 17 g PO DAILY PRN Constipation 03/02/21 05/21/23 gram/dose oral powder triamcinolone acetonide 0.1 % 1 applic topical DAILY 03/02/21 11/17/22 topical cream sodium chloride 7 % for 4 ml inhalation BID #240 mL 05/08/22 11/17/22 nebulization hydrochlorothiazide 25 mg tablet 25 mg PO DAILY 02/06/23 05/21/23 losartan 100 mg tablet 100 mg PO DAILY 02/06/23 05/21/23 oxycodone 10 mg tablet,extended 10 mg PO BID 02/06/23 release,12 hr gabapentin 600 mg tablet 600 mg PO QID 05/03/23 05/21/23 nystatin 100,000 unit/gram topical 1 applic topical BID 05/21/23 05/21/23 cream Previous Rx's Medication Instructions Recorded latanoprost 0.005 % eye drops 1 drp OU HS ##0 03/09/17 (Xalatan) diclofenac sodium 1 % topical gel 100 gm topical BID ##1 09/11/17 (Voltaren) naloxone 4 mg/actuation nasal 4 mg NS as directed 1 day #2 sprays 01/23/18 spray (Narcan) fentanyl 12 mcg/hr transdermal 1 adh.patch transdermal Q72H 30 03/26/18 patch days ##10 sodium chloride 7 % for 4 ml inhalation BID #240 mL 05/08/22 nebulization Allergies Allergy/AdvReac Type Severity Reaction Status Date / Time aspirin AdvReac Intermediate GI Bleeding Verified 05/21/23 09:05 NSAIDS (Non-Steroidal AdvReac Intermediate GI Bleeding Verified 05/21/23 09:05 Anti-Inflamma General Stated Complaint: Abd Prob DIAZ: 3 Review of Systems Narrative: Review of Systems Constitutional: negative Eyes: negative ENT: negative Cardiovascular: negative Respiratory: negative Gastrointestinal: Abdominal pain : negative Musculoskeletal: negative Skin: negative Neurologic: negative Psych: negative PFSH All Active Problems (Updated 05/21/23 @ 10:42 by Jerad Suarez MD) Knee pain, right (Acute) Acute GI bleeding (Acute) Anemia (Chronic) Abdominal pain (Acute) 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 exposure (Acute) Respiratory failure with hypoxia (Acute) Bronchiectasis (Acute) Nocturnal hypoxia (Acute) Restrictive lung disease (Acute) Foreign body in bladder and urethra (Acute) Dislodged Gracia catheter (Acute) Hematuria (Acute) Acute UTI (Acute) Discharge planning issues (Acute) DVT prophylaxis (Acute) Abdominal pain (Acute) BPH (benign prostatic hyperplasia) (Chronic) Essential hypertension (Acute) Lung infiltrate (Acute) UTI (urinary tract infection) (Acute) 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 Ayala Extraction of cataract (02/15/16) [place] R with IOL; and L as well, Dr. Dickinson in [place] Repair of inguinal hernia (08/31/11) Right sided with orchiectomy Rotator Cuff Repair (~1996) Right spinal stenosis (~2005) L foot drop result; L4 laminectomy and L4-5 R discectomy, Dr Campbell; second procedure at [place], [place] approx 02/2017 L1-L2 [address] 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 Diabetes age 50 Essential hypertension Stroke Uterine cancer Father , Colon CA at age 87. Colon cancer Sister Breast cancer Sister Ovarian cancer Sister Ovarian cancer Sister No problems noted. Sister No problems noted. Sister No problems noted. Sister No problems noted. Sister No problems noted. Brother Diabetes Brother No problems noted. Brother No problems noted. Social History Smoking/Tobacco Use Status: Never Smoking risk assessment performed?: Yes Alcohol Intake: never Drug use: Never Substance use type: does not use Housing: house Do you feel safe at home: Yes Do you feel safe in your relationship?: Yes Additional Social history: lives with . Exam Narrative Exam Narrative: Physical Examination General: alert, awake, cooperative, resting comfortably, no acute distress HEENT: normocephalic, atraumatic; PERRL, EOM intact, conjunctiva normal; no nasal discharge; moist mucous membranes, oral and pharyngeal mucosa normal, tolerating secretions Neck: supple, trachea midline; full ROM Chest: normal to inspection Respiratory: normal respiratory effort, speaking in full sentences, clear to auscultation, no wheezing, rales or rhonchi Cardiac: regular rate, regular rhythm, S1S2 intact, no murmurs rubs or gallops GI: abdomen soft, non-tender, non-distended; no palpable mass or hepatosplenomegaly; normal color nonmelanotic stool, no appreciable mass hemorrhoid or fissure, guaiac negative Skin: no lesions, rashes or trauma appreciated Neuro: AAOx3, normal speech, moving all extremities Psych: Appropriate mood and affect Course Vital Signs Vital signs: Vital Signs Temperature 37.0 C 05/21/23 08:56 Pulse 77 05/21/23 08:56 Respiratory Rate 20 05/21/23 08:56 Blood Pressure 142/80 H 05/21/23 08:56 Pulse Oximetry 92 05/21/23 08:56 Temperature 37.0 C 05/21/23 08:56 Temperature Source Tympanic 05/21/23 08:56 Pulse 77 05/21/23 08:56 Respiratory Rate 20 05/21/23 08:56 Respiratory Effort Normal, Non-Labored 05/21/23 09:06 Blood Pressure 142/80 H 05/21/23 08:56 Blood Pressure Position Supine 05/21/23 08:56 Pulse Oximetry 92 05/21/23 08:56 Oxygen Delivery Method Room Air 05/21/23 08:56 Oxygen Flow Rate 0 05/21/23 08:56 Pain Level 10 05/21/23 08:56
[2023-05-21] MEDS: ACETAMINOPHEN 1,000 MG/100 ML BTL 400 MG IVPB (09:30)
[2023-05-21] MEDS: Famotidine 20 MG/2 ML VIAL IVP (09:31)
[2023-05-21] MEDS: Ondansetron 4 MG/2 ML VIAL IVP (09:31)
[2023-05-21] MEDS: Mylanta Suspension 30 ML CUP PO (09:31)
[2023-05-21] MEDS: Normal Saline 500 ML 1000 ML IV (09:31)
[2023-05-21] MEDS: Normal Saline 50 ML 200 ML (09:34)
[2023-05-21 09:36] LABS: Abs Immature Grans 0.03 10^3/uL (0.0-0.06); Absolute Basophil Count 0.05 10^3/uL (0.0-0.2); Absolute Eosinophil Count 0.03 10^3/uL (0.0-0.7); Absolute Lymphocyte Count 0.94 10^3/uL (1.2-3.4); Absolute Monocyte Count 0.71 10^3/uL (0.1-0.8); Absolute Neutrophil Count 7.29 10^3/uL (1.2-6.7); Basophils % 0.6; Eosinophils % 0.3; HCT 28.6 % (40.0-50.0); Immature Grans % 0.3; Lymphocytes % 10.4; MCH 29.9 pg (27.0-33.0); MCHC 31.5 % (32.0-36.0); MCV 95 fL (80-95); MPV 10.4 fL (8.0-11.0); Monocytes % 7.8; Neutrophils % 80.6; Platelet Count 420 10^3/uL (130-400); RBC 3.01 10^6/uL (4.36-5.78); RDW 18.2 % (11.8-14.1); RDW-SD 62.4 fL; WBC 9.05 10^3/uL (4.4-10.8)
[2023-05-21 09:51] LABS: ALT 27 U/L (16-63); AST 23 U/L (15-37); Albumin 2.9 g/dL (3.4-5.0); Alkaline Phosphatase 106 U/L (46-116); Anion Gap 8.8 mmol/L (3-11); BUN 18 mg/dL (7-18); Bilirubin, Total 0.5 mg/dL (0.2-1.0); CO2 28.2 mmol/L (21.0-32.0); CREATININE 0.8 mg/dL (0.70-1.30); Calcium 8.3 mg/dL (8.5-10.1); Chloride 102 mmol/L (98-107); Estimated GFR 86.73 (mL/min/1.73m2); Glucose 112 mg/dL (74-106); Lipase 24 U/L (16-77); Potassium 3.9 mmol/L (3.5-5.1); Sodium 139 mmol/L (136-145); Total Protein 6.2 g/dL (6.4-8.2)
[2023-05-21 09:52] LABS: PTT Activated 19.6 sec (21.5-31.9); Prothrombin Time 10.4 sec (9.3-11.0)
--- NOTE | 2023-05-22 16:28 | PDOC.CMPRO ---
Date of service: 05/22/23 Time of Service: 16:28 Care Management Progress Note Progress Note Text Progress Note Text: Jamie was seen in the ED; Care management consult was placed to discuss additional support at home. HARLEY called and spoke to his , Aydee, who described how Jamie's care has increased recently due to a recent hospitalization at [facility] for GI bleed. She stated that he has generally not been feeling well, and has been complaining of abdominal pain, which is why she brought him to the ED. HARLEY discussed the possibility of home health services, and Aydee stated at first that they may benefit from a nurse checking in on him once every couple of weeks, or once a month. She stated that she does not feel that he would tolerate PT right now due to his abdominal pain. Later in the conversation she stated that she does not want home health services before talking to his PCP, Yvonne Solorio, whom he has a follow up appointment with soon. She stated that she is his primary caregiver, and her son lives nearby and helps out often. HARLEY called his PCP office to discuss the potential need for services with the chronic healthcare economics manager, Mónica, and left a message, as she was not available. HARLEY [facility] to provide a warm hand off for his transition of care in the community.
--- NOTE | 2023-05-24 07:25 | NUR.NOTE ---
Nursing Note: Folder w/patient medication list found at paint stock clerk desk. Mailed to patient on this date.
== END 2023-05-21 12:04 | disposition home or self-care (01) ==
PROVIDERS: Emergency Provider Emergency Medicine; PCP Family Medicine
DX: R10.9 Unspecified abdominal pain (principal); R19.7 Diarrhea, unspecified
CPT/HCPCS: 80053; 83690; 96374; 96375; 99284; 85025; 85610; 85730; J0131; J2405

== ENCOUNTER 2023-06-14 19:16 | Outpatient (REF) | payer MEDICARE, SELFPAY ==
[2023-06-14 15:13] LABS: Abs Immature Grans 0.07 10^3/uL (0.0-0.06); Absolute Basophil Count 0.06 10^3/uL (0.0-0.2); Absolute Eosinophil Count 0.09 10^3/uL (0.0-0.7); Absolute Lymphocyte Count 1.18 10^3/uL (1.2-3.4); Absolute Monocyte Count 0.89 10^3/uL (0.1-0.8); Absolute Neutrophil Count 8.15 10^3/uL (1.2-6.7); Basophils % 0.6; Eosinophils % 0.9; HGB 8.4 g/dL (13.5-17.5); Immature Grans % 0.7; Lymphocytes % 11.3; MCH 29.5 pg (27.0-33.0); MCHC 31.1 % (32.0-36.0); MCV 95 fL (80-95); MPV 9.5 fL (8.0-11.0); Monocytes % 8.5; RBC 2.85 10^6/uL (4.36-5.78); RDW 15.1 % (11.8-14.1); RDW-SD 51.7 fL; WBC 10.44 10^3/uL (4.4-10.8)
[2023-06-14 15:26] LABS: ALT 21 U/L (16-63); AST 23 U/L (15-37); Albumin 2.7 g/dL (3.4-5.0); Alkaline Phosphatase 124 U/L (46-116); BUN 12 mg/dL (7-18); Bilirubin, Total 0.2 mg/dL (0.2-1.0); CREATININE 0.8 mg/dL (0.70-1.30); Calcium 9.1 mg/dL (8.5-10.1); Chloride 104 mmol/L (98-107); Estimated GFR 86.19 (mL/min/1.73m2); Glucose 122 mg/dL (74-106); Potassium 4.8 mmol/L (3.5-5.1); Sodium 142 mmol/L (136-145); Total Protein 5.9 g/dL (6.4-8.2)
[2023-06-14 16:00] LABS: Diff Comment RBC Morph Reviewed; Platelet Count 817 10^3/uL (130-400); RBC Morphology Normal
== END 2023-06-14 19:17 | disposition home or self-care (01) ==
LOC: LBN 19:16
PROVIDERS: PCP Family Medicine; Visit Provider Physician Assistant
DX: R10.9 Unspecified abdominal pain (principal)
CPT/HCPCS: 80053; 85025

== ENCOUNTER → 2023-06-17 05:14 | Emergency (ER) | payer MEDICARE, SELFPAY | END | disposition other institution (70) | PROVIDERS: Emergency Provider Emergency Medicine; PCP Family Medicine | DX: Z53.21 Procedure and treatment not carried out due to patient leaving prior to being seen by health care provider (principal) ==

== ENCOUNTER 2023-06-17 11:07 | Emergency (ER) | payer MEDICARE, SELFPAY ==
[2023-06-17 11:14] VITALS: BP 125/59; PULSE 82; RESP 16; TEMP 36.8; O2SAT 96
--- NOTE | 2023-06-17 12:39 | ED.GENADUL_ITS ---
Discharge Plan Disposition Patient Disposition: Home Discharge Details Clinical Impression: Post-operative state Primary Care Provider: Yvonne Solorio ED Provider: Kadi Rico Home Meds and New Rx's Prescriptions: Continued Linzess 290 mcg capsule 290 mcg PO DAILY PRN acetaminophen 500 MG tablet 1,000 mg PO Q4H PRN Patient Comments: Not on medication list melatonin 3 MG tablet 3 mg PO HS PRN Patient Comments: Not on medication list Rx Instructions: 03/04/17 Dr BASURTO [facility] diclofenac sodium [Voltaren] 100 GM gel 100 gm Topical BID MDD twice Qty: 1 2RF Patient Comments: Not on medication list naloxone [Narcan] 4 MG spray,non-aerosol 4 mg NS as directed 1 Days Qty: 2 0RF Rx Instructions: instill 1 spray into 1 nostril for opioid overdose-may repeat once in opposite nostril if no response fentanyl 1 EACH patch 72 hour 1 adh.patch Transdermal Q72H MDD 1 patch Q72 hours 30 Days Qty: 10 0RF Rx Instructions: 25mcg - remove old patch when applying new patch sodium chloride 7 % solution for nebulization 4 ml inhalation BID Qty: 240 12RF Patient Comments: Not on medication list oxycodone 10 mg tablet extended release 12 hr 10 mg PO BID Patient Comments: Not on medication list hydrochlorothiazide 25 mg tablet 25 mg PO DAILY losartan 100 mg tablet 100 mg PO DAILY oxycodone 10 MG tablet 10 mg PO QID PRN (Reason: Pain) tamsulosin 0.4 mg Capsule 0.4 mg PO HS albuterol sulfate 2.5 mg /3 mL (0.083 %) Solution For Nebulization 2.5 mg Inhalation Q6H PRN famotidine 40 mg tablet 40 mg PO DAILY Patient Comments: Not on medication list dextromethorphan-guaifenesin [Mucinex DM] 60-1,200 mg Tablet Extended Release 12 Hr 1 tab PO BID PRN Patient Comments: Not on medication list polyethylene glycol 3350 17 gram/dose powder 17 g PO DAILY PRN (Reason: Constipation) Patient Comments: TAKE 17G ONE CAPFUL BY MOUTH MIXED IN 8OZ OF LIQUID AND DRINK ONCE DAILY NEEDED albuterol sulfate [ProAir HFA] 90 mcg/actuation HFA aerosol inhaler 2 inh INHALATION Q4H PRN Patient Comments: INHALE TWO PUFFS BY MOUTH EVERY 4 TO 6 HOURS NEEDED ondansetron 4 mg Tablet,Disintegrating 4 mg PO TID PRN Patient Comments: Not on medication list triamcinolone acetonide 0.1 % cream 1 applic TOPICAL DAILY Patient Comments: Not on medication list finasteride 5 MG tablet 5 mg PO HS Rx Instructions: for lower urinary track symptoms gabapentin 600 mg tablet 600 mg PO QID Patient Comments: TAKE ONE TABLET BY MOUTH FOUR TIMES A DAY DIRECTED nystatin 100,000 unit/gram cream 1 applic TOPICAL BID Patient Comments: APPLY LIBERALLY TO AFFECTED AREA(S) TWO TIMES A DAY DIRECTED latanoprost [Xalatan] 2.5 ML drops 1 drp OU HS Qty: 0 0RF cholecalciferol (vitamin D3) 1,000 UNITS tablet 1,000 units PO DAILY Patient Comments: Not on medication list ipratropium-albuterol 0.5 mg-3 mg(2.5 mg base)/3 mL solution for nebulization 3 ml INHALATION DIRECTED buspirone 30 mg tablet 30 mg PO DAILY Patient Comments: Not on medication list Trelegy Ellipta 100-62.5-25 mcg blister with device 1 inh INHALATION QAM Patient Comments: INHALE ONE PUFF BY MOUTH EVERY MORNING Discharge Instructions Additional Instructions: Keep wound clean and dry I will call you regarding the surgeon's instructions Continue to follow their recommendations that were detailed in your discharge summary and return earlier should you have new or worsening complaints Discharge Data Discharge Date/Time-TO BE ENTERED AT DEPARTURE: 06/17/23 12:50 Medical Decision Making 88-year-old gentleman presenting for staple removal request postoperative state Surgery was performed on 03 June per patient, denies any current complaints, would like his carlton removed, is leaving the health and rehab today reportedly has not called the surgeon [facility] records were reviewed, it sounds like patient had a large ulcerated bleeding area in his duodenum which was cauterized and had exploratory laparotomy and duodenotomy I called [facility] and spoke with Dr. Bonds who does state that we are able to remove carlton today as its been approximately 14 days, but he is also willing to follow-up with the patient tomorrow morning Initially department said it would be approximately 2 to 3 hours before the surgeon responded to phone call, so patient asked to be discharged home I spoke with Dr. Bonds and relayed information the they can call the clinic tomorrow and the sutures can be removed at [facility] so they can recheck the incision site, discussed with Aydee, HPI General Date/Time Provider Initiated Documentation: 06/17/23 11:57 . HPI Narrative: This 88-year-old male presents with report of recent GI bleed with exploratory laparoscopy and duodenotomy from the rehabilitation center where he is being discharged from today for need for suture removal of his abdominal carlton. He was not given any discharge instructions per patient. In they are wondering if sutures should be removed at this time. They deny any current complaints. Patient denies any abdominal pain, nausea, vomiting, fever, chills, redness to wounds. He denies any blood in his stools. Related Data Home Medications Medication Instructions Recorded Confirmed acetaminophen 500 mg tablet 1,000 mg PO Q4H PRN 07/09/15 06/17/23 melatonin 3 mg tablet 3 mg PO HS PRN 03/07/17 06/17/23 latanoprost 0.005 % eye drops 1 drp OU HS ##0 03/09/17 06/17/23 (Xalatan) diclofenac sodium 1 % topical gel 100 gm topical BID ##1 09/11/17 06/17/23 (Voltaren) naloxone 4 mg/actuation nasal 4 mg NS as directed 1 day #2 sprays 01/23/18 06/17/23 spray (Narcan) cholecalciferol (vitamin D3) 25 1,000 units PO DAILY 03/14/18 06/17/23 mcg (1,000 unit) tablet fentanyl 12 mcg/hr transdermal 1 adh.patch transdermal Q72H 30 03/26/18 06/17/23 patch days ##10 oxycodone 10 mg tablet 10 mg PO QID PRN Pain 06/13/18 06/17/23 albuterol sulfate 2.5 mg/3 mL 2.5 mg inhalation Q6H PRN 04/21/19 06/17/23 (0.083 %) solution for nebulization tamsulosin 0.4 mg capsule 0.4 mg PO HS 04/21/19 06/17/23 linaclotide 290 mcg capsule 290 mcg PO DAILY PRN 05/22/19 06/17/23 (Linzess) buspirone 30 mg tablet 30 mg PO DAILY 02/24/21 06/17/23 fluticasone fur. 100 mcg-umeclid 1 inh inhalation QAM 02/24/21 06/17/23 62.5 mcg-vilant 25 mcg inhalat.powder (Trelegy Ellipta) ipratropium 0.5 mg-albuterol 3 mg 3 ml inhalation DIRECTED 02/24/21 06/17/23 (2.5 mg base)/3 mL nebulization soln famotidine 40 mg tablet 40 mg PO DAILY 02/25/21 06/17/23 albuterol sulfate 90 mcg/actuation 2 inh inhalation Q4H PRN 03/02/21 06/17/23 aerosol inhaler (ProAir HFA) dextromethorphan-guaifenesin ER 60 1 tab PO BID PRN 03/02/21 06/17/23 mg-1,200 mg tab,extend release,12hr (Mucinex DM) finasteride 5 mg tablet 5 mg PO HS 03/02/21 06/17/23 ondansetron 4 mg disintegrating 4 mg PO TID PRN 03/02/21 06/17/23 tablet polyethylene glycol 3350 17 17 g PO DAILY PRN Constipation 03/02/21 06/17/23 gram/dose oral powder triamcinolone acetonide 0.1 % 1 applic topical DAILY 03/02/21 06/17/23 topical cream sodium chloride 7 % for 4 ml inhalation BID #240 mL 05/08/22 06/17/23 nebulization hydrochlorothiazide 25 mg tablet 25 mg PO DAILY 02/06/23 06/17/23 losartan 100 mg tablet 100 mg PO DAILY 02/06/23 06/17/23 oxycodone 10 mg tablet,extended 10 mg PO BID 02/06/23 06/17/23 release,12 hr gabapentin 600 mg tablet 600 mg PO QID 05/03/23 06/17/23 nystatin 100,000 unit/gram topical 1 applic topical BID 05/21/23 06/17/23 cream Previous Rx's Medication Instructions Recorded latanoprost 0.005 % eye drops 1 drp OU HS ##0 03/09/17 (Xalatan) diclofenac sodium 1 % topical gel 100 gm topical BID ##1 09/11/17 (Voltaren) naloxone 4 mg/actuation nasal 4 mg NS as directed 1 day #2 sprays 01/23/18 spray (Narcan) fentanyl 12 mcg/hr transdermal 1 adh.patch transdermal Q72H 30 03/26/18 patch days ##10 sodium chloride 7 % for 4 ml inhalation BID #240 mL 05/08/22 nebulization Allergies Allergy/AdvReac Type Severity Reaction Status Date / Time aspirin AdvReac Intermediate GI Bleeding Verified 06/17/23 11:19 NSAIDS (Non-Steroidal AdvReac Intermediate GI Bleeding Verified 06/17/23 11:19 Anti-Inflamma General Stated Complaint: SutureRem DIAZ: 4 PFSH All Active Problems (Updated 06/03/23 @ 00:11 by SURINDER FISCHER) Abdominal pain (Acute) Post-operative state (Acute) 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 exposure (Acute) Respiratory failure with hypoxia (Acute) Bronchiectasis (Acute) Nocturnal hypoxia (Acute) Restrictive lung disease (Acute) Foreign body in bladder and urethra (Acute) Dislodged Garcia catheter (Acute) Hematuria (Acute) Acute UTI (Acute) Discharge planning issues (Acute) DVT prophylaxis (Acute) Abdominal pain (Acute) BPH (benign prostatic hyperplasia) (Chronic) Essential hypertension (Acute) Lung infiltrate (Acute) UTI (urinary tract infection) (Acute) 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 Ayala Extraction of cataract (02/15/16) [place] R with IOL; and L as well, Dr. Dickinson in [place] Repair of inguinal hernia (08/31/11) Right sided with orchiectomy Rotator Cuff Repair (~1996) Right spinal stenosis (~2005) L foot drop result; L4 laminectomy and L4-5 R discectomy, Dr Campbell; second procedure at [place], [place] approx 02/2017 L1-L2 Laminectomy Dr. Cortes [facility] Total replacement of hip (~1999) Right hip, later revised in 2005 left side 2007 Family History Mother , CVA at age 85. Diabetes age 50 Essential hypertension Stroke Uterine cancer Father , Colon CA at age 87. Colon cancer Sister Breast cancer Sister Ovarian cancer Sister Ovarian cancer Sister No problems noted. Sister No problems noted. Sister No problems noted. Sister No problems noted. Sister No problems noted. Brother Diabetes Brother No problems noted. Brother No problems noted. Social History Smoking/Tobacco Use Status: Never Smoking risk assessment performed?: Yes Alcohol Intake: never Drug use: Never Substance use type: does not use Housing: house Do you feel safe at home: Yes Do you feel safe in your relationship?: Yes Additional Social history: lives with . Course Vital Signs Vital signs: Vital Signs Temperature 36.8 C 06/17/23 11:14 Pulse 82 06/17/23 11:14 Respiratory Rate 16 06/17/23 11:14 Blood Pressure 125/59 L 06/17/23 11:14 Pulse Oximetry 96 06/17/23 11:14 Temperature 36.8 C 06/17/23 11:14 Temperature Source Tympanic 06/17/23 11:14 Pulse 82 06/17/23 11:14 Respiratory Rate 16 06/17/23 11:14 Blood Pressure 125/59 L 06/17/23 11:14 Blood Pressure Position Sitting 06/17/23 11:14 Pulse Oximetry 96 06/17/23 11:14 Oxygen Delivery Method Room Air 06/17/23 11:14 Oxygen Flow Rate 0 06/17/23 11:14 Pain Level 0 06/17/23 11:14
[2023-06-17 12:56] VITALS: BP 132/75; PULSE 82; RESP 16; O2SAT 94
== END 2023-06-17 12:50 | disposition home or self-care (01) ==
PROVIDERS: Emergency Provider Physician Assistant; PCP Family Medicine
DX: Z09 Encounter for follow-up examination after completed treatment for conditions other than malignant neoplasm (principal)
CPT/HCPCS: 99282

== ENCOUNTER 2023-08-03 07:49 | Inpatient (IN) | payer MEDICARE, SELFPAY ==
[2023-08-03] VITALS (14 sets, daily range): BP systolic 113–132; BP diastolic 57–86; PULSE 57–79; RESP 1–24; TEMP 36.1–36.8; O2SAT 88–96
--- NOTE | 2023-08-03 | DI.US_ITS ---
Exam(s) US RENAL EXAM: US RENAL CLINICAL HISTORY: GARO. TECHNIQUE: Jack scale, color and spectral Doppler were used. Portable exam. COMPARISON: No exams were available for comparison FINDINGS: Renal size in cm: Right: 10.7 left: 10.0 Echogenicity: Normal Hydronephrosis: No Cyst or mass: No Nephrolithiasis: No Mild ascites around liver and gallbladder noted. Visualized portions of liver and gallbladder are un remarkable. Bladder:Ureteral jets not visualized. No mass or stone identified. Prevoid vol:1209 Cc Postvoid vol:Patient unable to void. IMPRESSION: No evidence of hydronephrosis. Markedly distended urinary bladder. Small amount of ascites. DATA REPOSITORY:
--- NOTE | 2023-08-03 07:45 | RT.EKG_ITS ---
APPROVED REPORT Exam: Resting ECG Reason for Exam: shortness of breath Patient Location: E HR:61 bpm ECG Measurements Heart Rate 61 AXIS MO [id number] P [id number] QRSd 141 QRS 63 QT 470 T -8 QTc 475 Conclusion ? atrial activity Right bundle branch block...QRSd>120, terminal axis(90,270)
--- NOTE | 2023-08-03 08:00 | DI.US_ITS ---
Exam(s) US SCROTUM EXAM: US SCROTUM CLINICAL HISTORY: scrotal swelling. TECHNIQUE: Scrotal ultrasound performed using grayscale, color-flow and spectral Doppler analysis. COMPARISON: CT CT ABDOMEN PELVIS W from 05/03/2023 FINDINGS: Right testicle: 3.4 x 2.4 x 2.6 cm Left testicle: Status post left orchiectomy. Echogenicity: Normal. Contour: Smooth. Mass: None seen. Microlithiasis: None. Hydrocele: Small hydrocele 5.2 x 2.8 x 4.9 cm. Varicocele: None. Hernia: No peristalsing bowel loop identified. Epididymis: Normal. Scrotum: Markedly thickened and edematous scrotum, 2.5 cm in thickness on the right and 6.8 cm thickn ess on the left. There is no localized fluid collection or drainable abscess. DOPPLER: Color: uniform, no hyperemia. Duplex: testicular arterial waveforms visualized. IMPRESSION: Marked scrotal skin thickening and edema, left greater than right. Small right hydrocele. Status po st left orchiectomy. DATA REPOSITORY:
--- NOTE | 2023-08-03 08:14 | W.ED.GENAD ---
Discharge Plan Disposition Patient Disposition: Admit to [facility] Discharge Details Chief Complaint: GenMedical Clinical Impression: Heart failure, Kidney failure, Scrotal swelling, Edema Primary Care Provider: Yvonne Solorio ED Provider: Ami Vogel Home Meds and New Rx's Prescriptions: No Action Linzess 290 mcg capsule 290 mcg PO DAILY PRN acetaminophen 500 MG tablet 1,000 mg PO Q4H PRN Patient Comments: Not on medication list melatonin 3 MG tablet 3 mg PO HS PRN Patient Comments: Not on medication list Rx Instructions: 03/04/17 Dr BASURTO [facility] diclofenac sodium [Voltaren] 100 GM gel 100 gm Topical BID MDD twice Qty: 1 2RF Patient Comments: Not on medication list naloxone [Narcan] 4 MG spray,non-aerosol 4 mg NS as directed 1 Days Qty: 2 0RF Rx Instructions: instill 1 spray into 1 nostril for opioid overdose-may repeat once in opposite nostril if no response fentanyl 1 EACH patch 72 hour 1 adh.patch Transdermal Q72H MDD 1 patch Q72 hours 30 Days Qty: 10 0RF Rx Instructions: 25mcg - remove old patch when applying new patch sodium chloride 7 % solution for nebulization 4 ml inhalation BID Qty: 240 12RF Patient Comments: Not on medication list oxycodone 10 mg tablet extended release 12 hr 10 mg PO BID Patient Comments: Not on medication list hydrochlorothiazide 25 mg tablet 25 mg PO DAILY losartan 100 mg tablet 100 mg PO DAILY oxycodone 10 MG tablet 10 mg PO QID PRN (Reason: Pain) tamsulosin 0.4 mg Capsule 0.4 mg PO HS albuterol sulfate 2.5 mg /3 mL (0.083 %) Solution For Nebulization 2.5 mg Inhalation Q6H PRN famotidine 40 mg tablet 40 mg PO DAILY Patient Comments: Not on medication list dextromethorphan-guaifenesin [Mucinex DM] 60-1,200 mg Tablet Extended Release 12 Hr 1 tab PO BID PRN Patient Comments: Not on medication list polyethylene glycol 3350 17 gram/dose powder 17 g PO DAILY PRN (Reason: Constipation) Patient Comments: TAKE 17G ONE CAPFUL BY MOUTH MIXED IN 8OZ OF LIQUID AND DRINK ONCE DAILY NEEDED albuterol sulfate [ProAir HFA] 90 mcg/actuation HFA aerosol inhaler 2 inh INHALATION Q4H PRN Patient Comments: INHALE TWO PUFFS BY MOUTH EVERY 4 TO 6 HOURS NEEDED ondansetron 4 mg Tablet,Disintegrating 4 mg PO TID PRN Patient Comments: Not on medication list triamcinolone acetonide 0.1 % cream 1 applic TOPICAL DAILY Patient Comments: Not on medication list finasteride 5 MG tablet 5 mg PO HS Patient Comments: pts med list states not taking gabapentin 600 mg tablet 600 mg PO QID Patient Comments: TAKE ONE TABLET BY MOUTH FOUR TIMES A DAY DIRECTED nystatin 100,000 unit/gram cream 1 applic TOPICAL BID Patient Comments: APPLY LIBERALLY TO AFFECTED AREA(S) TWO TIMES A DAY DIRECTED latanoprost [Xalatan] 2.5 ML drops 1 drp OU HS Qty: 0 0RF cholecalciferol (vitamin D3) 1,000 UNITS tablet 1,000 units PO DAILY Patient Comments: Not on medication list ipratropium-albuterol 0.5 mg-3 mg(2.5 mg base)/3 mL solution for nebulization 3 ml INHALATION DIRECTED buspirone 30 mg tablet 30 mg PO DAILY Patient Comments: Not on medication list Trelegy Ellipta 100-62.5-25 mcg blister with device 1 inh INHALATION QAM Patient Comments: INHALE ONE PUFF BY MOUTH EVERY MORNING Medical Decision Making 88yo M with hx of restrictive lung disease, DM, HTN, recent GI bleed 1 month ago, presenting with scrotal swelling. History from patient and EMS. EMS reports patient's called because patient was short of breath; patient states this is baseline for him and that he is concerned about scrotal swelling. Vital signs reassuring, no respiratory distress. Does have marked LE and scrotal edema on exam, small pressure ulcer to left lower gluteal region. Labs reviewed as below, CBC with anemia Hg 8.4 (9.0 on 05/21/23, not significantly decreased), CMP with worsening kidney function with Cr 2.0 (0.8 in April), BNP elevated at 7474, troponin mildly elevated at 61. EKG with no sequela of occlusive OR; low voltages also present on prior EKG but even moreso today. CXR independently reviewed, no focal pneumonia or pneumothorax on my view, agree with radiology read below. Patient denies fevers and states at his baseline respiratory winn; favor atelectasis Cardiac POCT US very limited 2/t body habitus, appears to have globally reduced function, no significant pericardial effusion. Scrotal ultrasound independently reviewed; no abscess, consistent with edema, agree with radiology read below. Given 40mg IV lasix, home pain medications. With apparent new onset CHF and kidney failure, warrants admission for further workup and management. Discussed with hospitalist Dr. Lockhart and accepted to medicine service. Awaiting transfer to the floor. Imaging Data Radiologic Study: Imaging: Ultrasound Radiologist's impression: IMPRESSION: Marked scrotal skin thickening and edema, left greater than right.? Small right hydrocele.? Status post left orchiectomy. Radiologic Study #2: Imaging: X-Ray Radiologist's impression: IMPRESSION: Small right pleural effusion and adjacent compressive atelectasis versus infiltrate. Lab Data Lab results reviewed: Yes I reviewed the patient's lab results. HPI General Mode of arrival: EMS. Date/Time Provider Initiated Documentation: 08/03/23 07:54. Limitations to Documentation: no limitations. Information obtained by: patient and EMS. HPI Narrative: 88yo M with hx of restrictive lung disease, DM, HTN, recent GI bleed 1 month ago, presenting with scrotal swelling. History from patient and EMS. EMS reports patient's called because patient was short of breath. Patient denies any shortness of breath currently or recently; states he wants to be evaluated for scrotal swelling. Swelling has been present and worsening for the past three days. Associated with mild diffuse throbbing scrotal pain, no laterality or focality. No dysuria or hematuria. Has also noted worsening LE edema over the same period of time. Denies chest pain or new shortness of breath; has some SOB at baseline which he reports is unchanged. No lightheadedness or palpitations. He is otherwise in his usual state of health with no fevers, chills, rash, nausea, vomiting, abdominal pain, or other concerns. Related Data Home Medications Medication Instructions Recorded Confirmed acetaminophen 500 mg tablet 1,000 mg PO Q4H PRN 07/09/15 08/03/23 melatonin 3 mg tablet 3 mg PO HS PRN 03/07/17 08/03/23 latanoprost 0.005 % eye drops 1 drp OU HS ##0 03/09/17 08/03/23 (Xalatan) diclofenac sodium 1 % topical gel 100 gm topical BID ##1 09/11/17 08/03/23 (Voltaren) naloxone 4 mg/actuation nasal 4 mg NS as directed 1 day #2 sprays 01/23/18 08/03/23 spray (Narcan) cholecalciferol (vitamin D3) 25 1,000 units PO DAILY 03/14/18 08/03/23 mcg (1,000 unit) tablet fentanyl 12 mcg/hr transdermal 1 adh.patch transdermal Q72H 30 03/26/18 08/03/23 patch days ##10 oxycodone 10 mg tablet 10 mg PO QID PRN Pain 06/13/18 08/03/23 albuterol sulfate 2.5 mg/3 mL 2.5 mg inhalation Q6H PRN 04/21/19 08/03/23 (0.083 %) solution for nebulization tamsulosin 0.4 mg capsule 0.4 mg PO HS 04/21/19 08/03/23 linaclotide 290 mcg capsule 290 mcg PO DAILY PRN 05/22/19 08/03/23 (Linzess) buspirone 30 mg tablet 30 mg PO DAILY 02/24/21 08/03/23 fluticasone fur. 100 mcg-umeclid 1 inh inhalation QAM 02/24/21 08/03/23 62.5 mcg-vilant 25 mcg inhalat.powder (Trelegy Ellipta) ipratropium 0.5 mg-albuterol 3 mg 3 ml inhalation DIRECTED 02/24/21 08/03/23 (2.5 mg base)/3 mL nebulization soln famotidine 40 mg tablet 40 mg PO DAILY 02/25/21 08/03/23 albuterol sulfate 90 mcg/actuation 2 inh inhalation Q4H PRN 03/02/21 08/03/23 aerosol inhaler (ProAir HFA) dextromethorphan-guaifenesin ER 60 1 tab PO BID PRN 03/02/21 08/03/23 mg-1,200 mg tab,extend release,12hr (Mucinex DM) finasteride 5 mg tablet 5 mg PO HS 03/02/21 08/03/23 ondansetron 4 mg disintegrating 4 mg PO TID PRN 03/02/21 08/03/23 tablet polyethylene glycol 3350 17 17 g PO DAILY PRN Constipation 03/02/21 08/03/23 gram/dose oral powder triamcinolone acetonide 0.1 % 1 applic topical DAILY 03/02/21 08/03/23 topical cream sodium chloride 7 % for 4 ml inhalation BID #240 mL 05/08/22 08/03/23 nebulization hydrochlorothiazide 25 mg tablet 25 mg PO DAILY 02/06/23 08/03/23 losartan 100 mg tablet 100 mg PO DAILY 02/06/23 08/03/23 oxycodone 10 mg tablet,extended 10 mg PO BID 02/06/23 08/03/23 release,12 hr gabapentin 600 mg tablet 600 mg PO QID 05/03/23 08/03/23 nystatin 100,000 unit/gram topical 1 applic topical BID 05/21/23 08/03/23 cream furosemide 40 mg tablet 40 mg PO DAILY 08/03/23 08/03/23 quetiapine 25 mg tablet 25 mg PO HS 08/03/23 08/03/23 Previous Rx's Medication Instructions Recorded latanoprost 0.005 % eye drops 1 drp OU HS ##0 03/09/17 (Xalatan) diclofenac sodium 1 % topical gel 100 gm topical BID ##1 09/11/17 (Voltaren) naloxone 4 mg/actuation nasal 4 mg NS as directed 1 day #2 sprays 01/23/18 spray (Narcan) fentanyl 12 mcg/hr transdermal 1 adh.patch transdermal Q72H 30 03/26/18 patch days ##10 sodium chloride 7 % for 4 ml inhalation BID #240 mL 05/08/22 nebulization Allergies Allergy/AdvReac Type Severity Reaction Status Date / Time aspirin AdvReac Intermediate GI Bleeding Verified 06/17/23 11:19 NSAIDS (Non-Steroidal AdvReac Intermediate GI Bleeding Verified 06/17/23 11:19 Anti-Inflamma General Stated Complaint: GenMedical DIAZ: 3 Review of Systems Narrative: see HPI PFSH All Active Problems (Updated 08/03/23 @ 11:03 by Ami Vogel MD) Heart failure (Acute) Kidney failure (Chronic) Scrotal swelling (Acute) Edema (Acute) 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 exposure (Acute) Respiratory failure with hypoxia (Acute) Bronchiectasis (Acute) Nocturnal hypoxia (Acute) Restrictive lung disease (Acute) Foreign body in bladder and urethra (Acute) Dislodged Garcia catheter (Acute) Hematuria (Acute) Acute UTI (Acute) Discharge planning issues (Acute) DVT prophylaxis (Acute) Abdominal pain (Acute) BPH (benign prostatic hyperplasia) (Chronic) Essential hypertension (Acute) Lung infiltrate (Acute) UTI (urinary tract infection) (Acute) 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 Ayala Extraction of cataract (02/15/16) [place] R with IOL; and L as well, Dr. Dickinson in [place] Repair of inguinal hernia (08/31/11) Right sided with orchiectomy Rotator Cuff Repair (~1996) Right spinal stenosis (~2005) L foot drop result; L4 laminectomy and L4-5 R discectomy, Dr Campbell; second procedure at [place], [place] approx 02/2017 L1-L2 [place]amine[address] [place] [place] [facility] [place] of [place] (~1999) Right hip, later revised in 2005 left side 2006 Family History Mother , CVA at age 85. Diabetes age 50 Essential hypertension Stroke Uterine cancer Father , Colon CA at age 87. Colon cancer Sister Breast cancer Sister Ovarian cancer Sister Ovarian cancer Sister No problems noted. Sister No problems noted. Sister No problems noted. Sister No problems noted. Sister No problems noted. Brother Diabetes Brother No problems noted. Brother No problems noted. Social History Smoking/Tobacco Use Status: Never Smoking risk assessment performed?: Yes Alcohol Intake: never Drug use: Never Substance use type: does not use Housing: house Do you feel safe at home: Yes Do you feel safe in your relationship?: Yes Additional Social history: lives with . Exam Narrative Exam Narrative: General: Alert, well appearing, well nourished, in no acute distress. Head: Normocephalic, atraumatic Neck: Trachea midline, Neck supple. ENT: MMM. Cardiac: RRR, no murmurs appreciated Resp: No respiratory distress. CTAB. Abd: Soft, non-distended, nontender : No suprapubic tenderness. Marked scrotal edema. Extremities: No deformities. Tense symmetric edema bilateral lower extremities. Skin: Pressure ulcer left lower gluteal Neurologic: GCS 15. Moves all extremities freely against gravity Course Vital Signs Vital signs: Vital Signs Temperature 36.7 C 08/03/23 07:50 Pulse 58 L 08/03/23 07:50 Respiratory Rate 24 08/03/23 07:50 Blood Pressure 116/78 08/03/23 07:50 Pulse Oximetry 94 08/03/23 07:50 Temperature 36.7 C 08/03/23 07:50 Temperature Source Oral 08/03/23 07:50 Pulse 58 L 08/03/23 07:50 Respiratory Rate 24 08/03/23 07:50 Blood Pressure 116/78 08/03/23 07:50 Blood Pressure Position Supine 08/03/23 07:50 Pulse Oximetry 94 08/03/23 07:50 Oxygen Delivery Method Room Air 08/03/23 07:50 Oxygen Flow Rate 0 08/03/23 07:50 Pain Level 4 08/03/23 07:50 POCUS Exam (ED) Limited Cardiac Exam DATE OF EXAM: 08/03/23 TIME OF EXAM: 10:16 PROVIDER THAT PERFORMED THE STUDY: Ami Vogel REASON FOR EXAM: Dyspnea VISUALIZED STRUCTURES: Four Chambers VIEW OBTAINED: Apical 4-Chamber, Parasternal long-axis and Parasternal short-axis PERTINENT FINDINGS/IMPRESSION: LV dysfunction (globally decreased); No pericardial effusion Exam complete (limited 2/t body habitus, unable to tolerate subxiphoid 2/t recent surgery)
[2023-08-03 08:58] LABS: Abs Immature Grans 0.01 10^3/uL (0.0-0.06); Absolute Basophil Count 0.05 10^3/uL (0.0-0.2); Absolute Eosinophil Count 0.17 10^3/uL (0.0-0.7); Absolute Lymphocyte Count 1.29 10^3/uL (1.2-3.4); Absolute Monocyte Count 0.96 10^3/uL (0.1-0.8); Basophils % 0.7; Eosinophils % 2.5; HCT 26.8 % (40.0-50.0); HGB 8.4 g/dL (13.5-17.5); Immature Grans % 0.1; MCH 25.2 pg (27.0-33.0); MCHC 31.3 % (32.0-36.0); MCV 81 fL (80-95); MPV 9.9 fL (8.0-11.0); Monocytes % 14.2; Neutrophils % 63.5; Platelet Count 355 10^3/uL (130-400); RBC 3.33 10^6/uL (4.36-5.78); RDW 18.2 % (11.8-14.1); RDW-SD 53.1 fL; WBC 6.78 10^3/uL (4.4-10.8)
[2023-08-03] MEDS: fentaNYL 75 MCG PATCH TD (09:14)
[2023-08-03 09:31] LABS: ALT 17 U/L (16-63); AST 20 U/L (15-37); Albumin 3.3 g/dL (3.4-5.0); Alkaline Phosphatase 120 U/L (46-116); Anion Gap 6.4 mmol/L (3-11); BUN 39 mg/dL (7-18); Bilirubin, Total 0.6 mg/dL (0.2-1.0); CO2 30.6 mmol/L (21.0-32.0); Calcium 9.1 mg/dL (8.5-10.1); Chloride 95 mmol/L (98-107); Glucose 106 mg/dL (74-106); NT-proBNP 7474 pg/mL (<300); Potassium 4.5 mmol/L (3.5-5.1); Sodium 132 mmol/L (136-145)
--- NOTE | 2023-08-03 09:40 | DI.RAD_ITS ---
Exam(s) XR CHEST 2V PA LATERAL EXAM: XR CHEST 2V PA LATERAL CLINICAL HISTORY: shortness of breath TECHNIQUE: 2D digital imaging was performed. COMPARISON: CR XR CHEST 1V IN DI DEPT from 05/03/2023 FINDINGS: Exam is limited by poor pulmonary inflation semi-erect erect positioning. HEART: [id number] enlargement. Aorta: Ectatic. PULMONARY VASCULATURE: Normal. LUNGS: there is a small right pleural effusion. There is also question of increased right basilar de nsities on the lateral view. The left lung appears clear. BONE:Degenerative changes. IMPRESSION: Small right pleural effusion and adjacent compressive atelectasis versus infiltrate. DATA REPOSITORY: RADIATION DOSE DELIVERED:
[2023-08-03] MEDS: oxyCODONE 10 MG TAB PO ×3 (09:41→23:48)
[2023-08-03 09:43] LABS: Troponin I 61 ng/L (<or=60)
[2023-08-03] MEDS: Furosemide 40 MG/4 ML VIAL IVP (10:01)
[2023-08-03 10:20] LABS: Source Nasopharynx
--- NOTE | 2023-08-03 10:27 | NUR.NOTE ---
Nursing Note:Unable to insert caban catheter. Dr. Vogel aware.
--- NOTE | 2023-08-03 10:45 | DI.US_ITS ---
Exam(s) US EXTREMITY VENOUS BI EXAM: US EXTREMITY VENOUS BI CLINICAL HISTORY: BLE edema. TECHNIQUE: Bilateral lower extremity venous ultrasound performed using grayscale, color-flow, and sp ectral Doppler analysis. COMPARISON: No exams were available for comparison FINDINGS: The bilateral common femoral, femoral and popliteal veins demonstrate normal compressibility, augment ation, and color Doppler. The posterior tibial veins are patent. There is no Perla's cyst or hematom a. There is edema in the subcutaneous fat IMPRESSION: Right: Negative for DVT Left: Negative for DVT DATA REPOSITORY:
--- NOTE | 2023-08-03 11:00 | HPE_ITS ---
Date of service: 08/03/23 Time of Service: 11:00 Assessment and Plan Assessment and plan (1) Acute CHF: Status: Acute Assessment and plan: On an echo done in 02/17, LVEF was normal, there were no wall motion abnormalities, RV size and function were normal. RVSP was 45 mmHg. There was moderate pulmonic regurgitation. There was, otherwise, no significant valvular disease. Repeat echo is pending. We will diurese the patient while trending I/Os, daily weights, and very carefully monitoring Cr. (2) GARO (acute kidney injury): Status: Acute Assessment and plan: With evidence of urinary retention by bladder scan. Caban catheter placement is a good idea for I/O trending, and urology is consul dean. Obtain US renal. Obtain FeUrea. Hold losartan. Diurese carefully. (3) Scrotal edema: Status: Acute Assessment and plan: As above - diurese, place caban catheter (4) Chronic anemia: Status: Acute Assessment and plan: Obtain anemia studies (5) Bronchiectasis: Status: Chronic Assessment and plan: Continue home therapy RT consult (6) Diabetes mellitus: Status: Chronic Assessment and plan: Per chart review. Not on therapy. Obtain A1C Cover with SSI Carb consistent diet (7) Decubital ulcer: Status: Acute Assessment and plan: L buttock, present on admission. Patient states that he has not been ambulatory since return from [facility]. He states he spent most of his time in bed. He does not have home health currently. Wound care and PT are consulted. (8) Discharge planning issues: Status: Acute Assessment and plan: DNR/DNI (9) DVT prophylaxis: Status: Acute Assessment and plan: SC heparin History of Present Illness History of Present Illness Chief Complaint: shortness of breath, leg swelling Narrative: Mr Aguilar is an 88 year old male with PMHx of both restrictive lung disease and bronchiectasis, not on oxygen, as well as h/o NIDDM2, HTN, BPH, who was brought to [facility] ED today by ambulance for shortness of breath. On arrival to ER, per the ED provider, he was not as short of breath; however, he was found to be edematous in his LEs and scrotum. His CXR showed a small right pleural effusion and atelectasis vs infiltrate. His troponin I was initially 61, then 59 on recheck without evidence of acute ischemia. EKG showed low voltage and no acute ischemia. P waves could not be definitively seen, but there was no evidence of electrical alternans. POCUS echo done by the ER provider showed a low global EF and no pericardial effusion. He received a dose of furosemide 40 mg IV x 1 in the ED. He is not requiring oxygen. Hospitalist admission for workup and management of acute CHF was requested. Of note, the patient also has an elevated D-dimer. Venous doppler of BLEs was negative for DVT. His echocardiogram is still pending. He has an GARO with a Cr of 2.0, up from 0.8 in May of this year. A caban catheter could not be placed in the ED due to penile/scrotal edema. A post-void bladder scan revealed 364 ccs. Urology is consulted for caban catheter placement. The patient states that about a month and a half ago he was hospitalized for a long time at [facility] for a GI bleed, for which he required a laparatomy. He states ever since then he has had difficulty walking due to abdominal pain. The leg swelling started 1-2 weeks ago and the scrotal swelling started 3-4 days ago. He describes HINDS and palpitations on exertion, as well as PND. Denies CP, dizziness, SOB at rest, orthopnea, palpitations at rest, nausea, blood in stool, dysuria now (had some when the scrotal swelling first started). Review of Systems All systems reviewed & are unremarkable except as noted in HPI and below PFSH All Active Problems (Updated 08/03/23 @ 15:00 by Yajaira Lockhart MD) Decubital ulcer (Acute) Chronic anemia (Acute) GARO (acute kidney injury) (Acute) Scrotal edema (Acute) Acute CHF (Acute) Heart failure (Acute) Kidney failure (Chronic) Scrotal swelling (Acute) Edema (Acute) 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 exposure (Acute) Respiratory failure with hypoxia (Acute) Bronchiectasis (Chronic) Nocturnal hypoxia (Acute) Restrictive lung disease (Acute) Foreign body in bladder and urethra (Acute) Dislodged Caban catheter (Acute) Hematuria (Acute) Acute UTI (Acute) Discharge planning issues (Acute) DVT prophylaxis (Acute) Abdominal pain (Acute) Diabetes mellitus (Chronic) BPH (benign prostatic hyperplasia) (Chronic) Essential hypertension (Acute) Lung infiltrate (Acute) UTI (urinary tract infection) (Acute) 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 Ayala Extraction of cataract (02/15/16) [place] R with IOL; and L as well, Dr. Dickinson in [place] Repair of inguinal hernia (08/31/11) Right sided with orchiectomy Rotator Cuff Repair (~1996) Right spinal stenosis (~2005) L foot drop result; L4 laminectomy and L4-5 R discectomy, Dr Campbell; second procedure at [place], [place] approx 02/2017 L1-L2 Laminectomy Dr. Cortes [facility] Total replacement of hip (~1999) Right hip, later revised in 2005 left side 2006 Family History Mother , CVA at age 85. Diabetes age 50 Essential hypertension Stroke Uterine cancer Father , Colon CA at age 87. Colon cancer Sister Breast cancer Sister Ovarian cancer Sister Ovarian cancer Sister No problems noted. Sister No problems noted. Sister No problems noted. Sister No problems noted. Sister No problems noted. Brother Diabetes Brother No problems noted. Brother No problems noted. Social History Smoking/Tobacco Use Status: Never Smoking risk assessment performed?: Yes Alcohol Intake: never Drug use: Never Substance use type: does not use Housing: house Do you feel safe at home: Yes Do you feel safe in your relationship?: Yes Additional Social history: lives with . Meds Allergies and Home Medications Allergies Allergy/AdvReac Type Severity Reaction Status Date / Time aspirin AdvReac Intermediate GI Bleeding Verified 06/17/23 11:19 NSAIDS (Non-Steroidal AdvReac Intermediate GI Bleeding Verified 06/17/23 11:19 Anti-Inflamma Home Medications Medication Instructions Recorded Confirmed Type acetaminophen 500 mg tablet 1,000 mg PO Q4H PRN 07/09/15 08/03/23 History melatonin 3 mg tablet 3 mg PO HS PRN 03/07/17 08/03/23 History latanoprost 0.005 % eye drops 1 drp OU HS ##0 03/09/17 08/03/23 Rx (Xalatan) diclofenac sodium 1 % topical gel 100 gm topical BID ##1 09/11/17 08/03/23 Rx (Voltaren) naloxone 4 mg/actuation nasal 4 mg NS as directed 1 day #2 sprays 01/23/18 1 Rx spray (Narcan) cholecalciferol (vitamin D3) 25 1,000 units PO DAILY 03/14/18 08/03/23 History mcg (1,000 unit) tablet fentanyl 12 mcg/hr transdermal 1 adh.patch transdermal Q72H 30 03/26/18 08/03/23 Rx patch days ##10 oxycodone 10 mg tablet 10 mg PO QID PRN Pain 06/13/18 08/03/23 History albuterol sulfate 2.5 mg/3 mL 2.5 mg inhalation Q6H PRN 04/21/19 08/03/23 Hist ory (0.083 %) solution for nebulization tamsulosin 0.4 mg capsule 0.4 mg PO HS 04/21/19 08/03/23 History linaclotide 290 mcg capsule 290 mcg PO DAILY PRN 05/22/19 08/03/23 History (Linzess) buspirone 30 mg tablet 30 mg PO DAILY 02/24/21 08/03/23 History fluticasone fur. 100 mcg-umeclid 1 inh inhalation QAM 02/24/21 08/03/23 History 62.5 mcg-vilant 25 mcg inhalat.powder (Trelegy Ellipta) ipratropium 0.5 mg-albuterol 3 mg 3 ml inhalation DIRECTED 02/24/21 08/03/23 History (2.5 mg base)/3 mL nebulization soln famotidine 40 mg tablet 40 mg PO DAILY 02/25/21 08/03/23 History albuterol sulfate 90 mcg/actuation 2 inh inhalation Q4H PRN 03/02/21 08/03/23 History aerosol inhaler (ProAir HFA) dextromethorphan-guaifenesin ER 60 1 tab PO BID PRN 03/02/21 08/03/23 History mg-1,200 mg tab,extend release,12hr (Mucinex DM) finasteride 5 mg tablet 5 mg PO HS 03/02/21 08/03/23 History ondansetron 4 mg disintegrating 4 mg PO TID PRN 03/02/21 08/03/23 History tablet polyethylene glycol 3350 17 17 g PO DAILY PRN Constipation 03/02/21 08/03/23 History gram/dose oral powder triamcinolone acetonide 0.1 % 1 applic topical DAILY 03/02/21 08/03/23 History topical cream sodium chloride 7 % for 4 ml inhalation BID #240 mL 05/08/22 08/03/23 Rx nebulization hydrochlorothiazide 25 mg tablet 25 mg PO DAILY 02/06/23 08/03/23 History losartan 100 mg tablet 100 mg PO DAILY 02/06/23 08/03/23 History gabapentin 600 mg tablet 600 mg PO QID 05/03/23 08/03/23 History nystatin 100,000 unit/gram topical 1 applic topical BID 05/21/23 08/03/23 History cream furosemide 40 mg tablet 40 mg PO DAILY 08/03/23 08/03/23 History furosemide 40 mg tablet 40 mg PO DAILY 08/03/23 08/03/23 History latanoprost 0.005 % eye drops 1 drp ophthalmic (eye) HS 08/03/23 08/03/23 History quetiapine 25 mg tablet 25 mg PO HS 08/03/23 08/03/23 History Exam Narrative Exam Narrative: General: Pleasant elderly obese male who is A&Ox3, sitting up in bed at about a 30 degree angle, no dyspnea/tachynpea/cyanosis on RA Neurological: A&Ox3, no focal deficits Psychiatric: Appropriate speech pattern/content Skin: very mild erythema BLEs with some serosanguenous drainage from RLE HEENT: Atraumatic, normocephalic, EOMI, MMM, clear oropharynx, no submandibular or cervical lymphadenopathy, no goiter or JVD Cardiovascular: RRR, ?quiet LEONOR Lungs: CTAB Gastrointestinal: soft, obese, nontender; well-healed midline abdominal incision Genitourinary: scrotal edema Extremities: +1 BLE edema, symmetric, trace pedal pulses B, see skin exam above, no c/c. Results Imaging Imaging Studies: US scrotum: Marked scrotal skin thickening and edema, left greater than right.? Small right hydrocele.? Status post left orchiectomy. CXR: Small right pleural effusion and adjacent compressive atelectasis versus infiltrate. US venous: Right: Negative for DVT Left: Negative for DVT Echo read pending. EKG: ?junctional rhythm, HR 61, RBBB (old) Labs 08/03/23 08:51 08/03/23 08:51 Labs: Laboratory Results - last 24 hr 08/03/23 08/03/23 08/03/23 08:51 08:51 09:57 WBC 6.78 RBC 3.33 L Hgb 8.4 L Hct 26.8 L MCV 81 MCH 25.2 L MCHC 31.3 L RDW 18.2 H Plt Count 355 MPV 9.9 Immature Gran % 0.1 Neutrophils % 63.5 Lymphocytes % 19.0 Monocytes % 14.2 Eosinophils % 2.5 Basophils % 0.7 Nucleated RBC % 0.0 Absolute Neutrophils 4.30 Absolute Lymphocytes 1.29 Absolute Monocytes 0.96 H Absolute Eosinophils 0.17 Absolute Basophils 0.05 Sodium 132 L Potassium 4.5 Chloride 95 L Carbon Dioxide 30.6 Anion Gap 6.4 BUN 39 H Creatinine 2.0 H Est GFR (CKD-EPI 2020) 31.90 Glucose 106 Calcium 9.1 Total Bilirubin 0.6 AST 20 ALT 17 Alkaline Phosphatase 120 H Troponin I 61 H NT-Pro-B Natriuret Pep 7474 H Total Protein 7.0 Albumin 3.3 L COVID-19 Source Cancelled SARS-CoV-2 (PCR) Cancelled Influenza Type A (PCR) Cancelled Influenza Type B (PCR) Cancelled RSV (PCR) Cancelled 08/03/23 10:11 WBC RBC Hgb Hct MCV MCH MCHC RDW Plt Count MPV Immature Gran % Neutrophils % Lymphocytes % Monocytes % Eosinophils % Basophils % Nucleated RBC % Absolute Neutrophils Absolute Lymphocytes Absolute Monocytes Absolute Eosinophils Absolute Basophils Sodium Potassium Chloride Carbon Dioxide Anion Gap BUN Creatinine Est GFR (CKD-EPI 2020) Glucose Calcium Total Bilirubin AST ALT Alkaline Phosphatase Troponin I NT-Pro-B Natriuret Pep Total Protein Albumin COVID-19 Source Nasopharynx SARS-CoV-2 (PCR) Influenza Type A (PCR) Influenza Type B (PCR) RSV (PCR) Last Vital Signs Temp 36.7 C 08/03/23 07:50 Pulse 68 08/03/23 10:42 Resp 20 08/03/23 10:42 BP 132/86 08/03/23 10:42 Pulse Ox 95 08/03/23 10:42 Time Spent Time spent with Patient: 55-74 minutes Time was spent: preparing to see the patient(eg.review tests), obtaining and/or reviewing separately otained hiistory, ordering medications,tests, procedures, referring, communicating with other health foster care social worker, indepentently interpreting results, counseling the patient and care coordination
[2023-08-03 11:02] LABS: COVID-19 PCR Negative (Negative)
[2023-08-03 11:50] LABS: Bilirubin Negative (Negative); Blood Negative (Negative); Clarity Clear (Clear); Glucose Negative (Negative); Ketones Negative (Negative); Leukocyte Esterase Small (Negative); Nitrite Negative (Negative); Specific Gravity 1.015 (1.005-1.025); Urobilinogen 0.2 mg/dL (Up to 0.2); pH 5.5 (5-8)
[2023-08-03 11:51] LABS: Lab Add On Test DONE
[2023-08-03 11:58] LABS: Bacteria Rare HPF (Negative); C & S Indicated? Yes; Casts 0-2 Hyaline LPF (Negative); Crystals Negative HPF (Negative); Epithelial Cells Few HPF (Negative); Mucus Negative (Negative); RBC Negative HPF (0-2)
[2023-08-03 12:02] LABS: D-Dimer 3060 ng/mlFEU (<500)
[2023-08-03 12:08] LABS: Creatinine,Urine 89.63 mg/dL
[2023-08-03 12:17] LABS: FREE T4 1.06 ng/dL (0.76-1.46)
[2023-08-03 13:32] LABS: Troponin I 59 ng/L (<or=60)
--- NOTE | 2023-08-03 13:46 | RESPIRATORY ---
RT Assessment Start: 08/03/23 13:39 Freq: .q shift and prn Status: Active Protocol: Document 08/03/23 13:41 RT.MAGR (Rec: 08/03/23 13:46 RT.MAGR [id number]) RT Assessment Pulmonary History Pulmonary History Other Smoking History Smoking/Tobacco Use Status Never OXYGEN HISTORY: Supplemental O2 With Exertion 2 CPAP Can use home machine No BIPAP Can you home machine No Trilogy/AVAPS Can use home machine No DME/Compliance DME [facility] Current Respiratory Symptoms Current Respiratory Symptoms Cough Respiratory Breath Sounds Breath Sounds Any abnormal sounds, decreased breath sounds Pulse Rate <100 Respiratory Rate <18 Shortness of Breath None Respiratory Therapy Score Total 1 Assessment and Plan RT Treatment Protocol Lung Expansion Therapy Protocol Note Lung Expansion Therapy Protocol: Deep breathing/cough . IS at bedside.
[2023-08-03] MEDS: Heparin 5,000 UNITS/ML VIAL 5000 UNITS SC ×2 (14:25→21:09)
--- NOTE | 2023-08-03 14:41 | PT.INIE ---
PT Notes Visit Reasons: Acute CHF w/Pleural Effusion,GARO,Anemia Inpatient Physical Therapy Evaluation Date: 08/03/23 Referring Doctor: Yjaaira Lockhart MD PT Orders: PT CONSULT: Limited ability Precautions: Standard Patient Profile/Admitting Diagnosis: 88yo M with hx of restrictive lung disease, DM, HTN, recent GI bleed 1 month ago, presenting to [facility] ER today, 08/03/23, with SOB, scrotal swelling and development of L LE swelling.? PMHX: All Active Problems?(Updated 08/03/23 @ 14:29 by Yajaira Lockhart MD) Chronic anemia (Acute) GARO (acute kidney injury) (Acute) Scrotal edema (Acute) Acute CHF (Acute) Heart failure (Acute) Kidney failure (Chronic) Scrotal swelling (Acute) Edema (Acute) 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 exposure (Acute) Respiratory failure with hypoxia (Acute) Bronchiectasis (Chronic) Nocturnal hypoxia (Acute) Restrictive lung disease (Acute) Foreign body in bladder and urethra (Acute) Dislodged Garcia catheter (Acute) Hematuria (Acute) Acute UTI (Acute) Discharge planning issues (Acute) DVT prophylaxis (Acute) Abdominal pain (Acute) Diabetes mellitus (Chronic) BPH (benign prostatic hyperplasia) (Chronic) Essential hypertension (Acute) Lung infiltrate (Acute) UTI (urinary tract infection) (Acute) 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 Cooper of cataract (02/15/16) [place] R with IOL; and [place]) Right sided with orchiectomyRotator Cuff Repair (~1996) Rightspinal stenosis (~2005) L foot drop result; L4 laminectomy and L4-5 R discectomy, Dr Campbell; second procedure at [place], [place] approx 02/2017 L1-L2 Lamine[facility] Right hip, later revised in 2006 left side 2006 Social History/Home Situation: [] Current Functional Limitations: [] Equipment Owned/DME: [] Subjective: [] Objective: [] General Observation: [] Mental Status: [] Pain: [] Vital Signs: [] ROM: Right Upper Extremity: [] Left Upper Extremity: [] Right Lower Extremity: [] Left Lower Extremity: [] Strength: Right Upper Extremity: [] Left Upper Extremity: [] Right Lower Extremity: [] Left Lower Extremity: [] Sensation: [] Bed Mobility/Transfers: [] Gait: [] Balance: [] Static Sitting: [] Dynamic Sitting: [] Static Standing: [] Dynamic Standing: [] Special Tests: Mobility Limitations Standardized Measure [facility] 6 clicks Basic Mobility Inpatient Short Form: Raw Score: [] Standardized Score: [] CMS Score: [] Informed Consent/Education: Patient instructed in purpose of PT consult and plan of care. Assessment: Patient is a [] year old [] referred to physical therapy services with the diagnosis of []. Patient presents with clinical signs and symptoms consistent with [], as demonstrated by the following impairment level findings: []. Impairments are contributing to the following functional limitations: AMPAC score. Patient is assessed as a [] Low 64669 [] Moderate 98167 [] High 24073 complexity based on the following: History: [] Examination: [] Presentation: [] Decision Making: [] Goals: Goals X1 week 1. Supine-Sit [] 2. Sit-Supine [] 3. Sit-Stand [] 4. Stand-Sit [] 5. Bed-Chair [] 6. Chair-Bed [] 7. Gait [] 8. Stairs [] 9. Independent with home exercise program [] 10. Balance [] Plan of Care/Treatment Plan: 1-2x/day, 7 days/week x 1 week. Plan of care has been reviewed with the ACADEMIC COORDINATOR providing the service under Physical Therapy direction. Initiate Physical Therapy intervention for strengthening, bed mobility, transfers, gait, stairs, balance training, use of assistive device. DISCHARGE RECOMMENDATIONS: [] [] Home with no services [] [] Home with services [specify] [] Home with outpatient PT [] [] SNF for continued rehabilitation [] [] Nursing Home Care [] [] SNF versus LTC based on ability to participate and progress [] TREATMENT CODE/TIME: []
--- NOTE | 2023-08-03 15:05 | PT.INNT ---
PT Notes Visit Reasons: Acute CHF w/Pleural Effusion,GARO,Anemia Attempted PT evaluation at 3:00 p.m. Despite encouragement, patient refuses participation. He has been in tests all day since he got here at 6:00 a.m. He is exhausted and not even willing to sit up in bed. Agrees to consult tomorrow.
--- NOTE | 2023-08-03 15:33 | UCONE_ITS ---
Date of service: 08/03/23 Time of Service: 15:34 Assessment and Plan Assessment and plan (1) Scrotal swelling: Status: Acute Assessment and plan: The penile and a little edema seem to be related to total fluid overload rather than from a localized urologic issue. An indwelling catheter is certainly reasonable to help with both diuresis and skin care (especially given his finding of a sacral wound). I do not see any indication of chronic urinary retention, so once the diuresis is completed, I would have no objection to a voiding trial. History of Present Illness History of Present Illness Chief Complaint: Scrotal edema Narrative: This is an 88-year-old gentleman who is known to me from a previous encounter during which he had a retained fragment of his urethral catheter still in place. At that time, I did a flexible ureteroscopy in the office and we were able to visualize and grasp the catheter fragment. The patient comes in now with lower extremity and scrotal edema. His renal function has deteriorated. He is being diuresed. A Garcia catheter is request ed. Due to the degree of scrotal edema, the staff is unable to place a catheter [facility] All Active Problems (Updated 08/03/23 @ 15:00 by Yajaira Lockhart MD) Decubital ulcer (Acute) Chronic anemia (Acute) GARO (acute kidney injury) (Acute) Scrotal edema (Acute) Acute CHF (Acute) Heart failure (Acute) Kidney failure (Chronic) Scrotal swelling (Acute) Edema (Acute) 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 exposure (Acute) Respiratory failure with hypoxia (Acute) Bronchiectasis (Chronic) Nocturnal hypoxia (Acute) Restrictive lung disease (Acute) Foreign body in bladder and urethra (Acute) Dislodged Garcia catheter (Acute) Hematuria (Acute) Acute UTI (Acute) Discharge planning issues (Acute) DVT prophylaxis (Acute) Abdominal pain (Acute) Diabetes mellitus (Chronic) BPH (benign prostatic hyperplasia) (Chronic) Essential hypertension (Acute) Lung infiltrate (Acute) UTI (urinary tract infection) (Acute) 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 Ayala Extraction of cataract (02/15/16) [place] R with IOL; and L as well, Dr. Dickinson in [place] Repair of inguinal hernia (08/31/11) Right sided with orchiectomy Rotator Cuff Repair (~1996) Right spinal stenosis (~2005) L foot drop result; L4 laminectomy and L4-5 R discectomy, Dr Campbell; second procedure at [place], [place] approx 02/2017 L1-L2 Laminectomy Dr. 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 Diabetes age 50 Essential hypertension Stroke Uterine cancer Father , Colon CA at age 87. Colon cancer Sister Breast cancer Sister Ovarian cancer Sister Ovarian cancer Sister No problems noted. Sister No problems noted. Sister No problems noted. Sister No problems noted. Sister No problems noted. Brother Diabetes Brother No problems noted. Brother No problems noted. Social History Smoking/Tobacco Use Status: Never Smoking risk assessment performed?: Yes Alcohol Intake: never Drug use: Never Substance use type: does not use Housing: house Do you feel safe at home: Yes Do you feel safe in your relationship?: Yes Additional Social history: lives with . Exam Narrative Exam Narrative: He does not appear here septic or toxic He is uncircumcised. The penile skin and scrotum are diffusely edematous. There is tense pitting edema in the lower extremities bilaterally He is awake and alert I was able to review a CT scan of the abdomen and pelvis that was done about 4 month ago. There was no sign of hydronephrosis at that time. Results Last Vital Signs Temp 36.1 C L 08/03/23 13:52 Pulse 57 L 08/03/23 13:52 Resp 18 08/03/23 13:52 BP 115/57 L 08/03/23 13:52 Pulse Ox 96 08/03/23 13:52 Labs 08/03/23 08:51 08/03/23 08:51 Labs: Laboratory Results - last 24 hr 08/03/23 08/03/23 08/03/23 08:51 08:51 09:57 WBC 6.78 RBC 3.33 L Hgb 8.4 L Hct 26.8 L MCV 81 MCH 25.2 L MCHC 31.3 L RDW 18.2 H Plt Count 355 MPV 9.9 Immature Gran % 0.1 Neutrophils % 63.5 Lymphocytes % 19.0 Monocytes % 14.2 Eosinophils % 2.5 Basophils % 0.7 Nucleated RBC % 0.0 Absolute Neutrophils 4.30 Absolute Lymphocytes 1.29 Absolute Monocytes 0.96 H Absolute Eosinophils 0.17 Absolute Basophils 0.05 D-Dimer Sodium 132 L Potassium 4.5 Chloride 95 L Carbon Dioxide 30.6 Anion Gap 6.4 BUN 39 H Creatinine 2.0 H Est GFR (CKD-EPI 2020) 31.90 Glucose 106 Calcium 9.1 Total Bilirubin 0.6 AST 20 ALT 17 Alkaline Phosphatase 120 H Troponin I 61 H NT-Pro-B Natriuret Pep 7474 H Total Protein 7.0 Albumin 3.3 L TSH Free T4 Urine Color Urine Clarity Urine pH Ur Specific [place] Urine Protein Urine Ketones Urine Blood Urine Nitrite Urine Bilirubin Urine Urobilinogen Ur Leukocyte Esterase Urine RBC Urine WBC Ur Epithelial Cells Urine Crystals Urine Bacteria Urine Casts Urine Mucus Ur Culture Indicated? Ur Random Creatinine Urine Glucose COVID-19 Source Cancelled SARS-CoV-2 (PCR) Cancelled Influenza Type A (PCR) Cancelled Influenza Type B (PCR) Cancelled RSV (PCR) Cancelled Add-On Test Request 08/03/23 08/03/23 08/03/23 10:11 11:27 11:27 WBC RBC Hgb Hct MCV MCH MCHC RDW Plt Count MPV Immature Gran % Neutrophils % Lymphocytes % Monocytes % Eosinophils % Basophils % Nucleated RBC % Absolute Neutrophils Absolute Lymphocytes Absolute Monocytes Absolute Eosinophils Absolute Basophils D-Dimer 3060 H Sodium Potassium Chloride Carbon Dioxide Anion Gap BUN Creatinine Est GFR (CKD-EPI 2020) Glucose Calcium Total Bilirubin AST ALT Alkaline Phosphatase Troponin I NT-Pro-B Natriuret Pep Total Protein Albumin TSH 1.90 Free T4 1.06 Urine Color Urine Clarity Urine pH Ur Specific [place] Urine Protein Urine Ketones Urine Blood Urine Nitrite Urine Bilirubin Urine Urobilinogen Ur Leukocyte Esterase Urine RBC Urine WBC Ur Epithelial Cells Urine Crystals Urine Bacteria Urine Casts Urine Mucus Ur Culture Indicated? Ur Random Creatinine Urine Glucose COVID-19 Source Nasopharynx SARS-CoV-2 (PCR) Negative Influenza Type A (PCR) Influenza Type B (PCR) RSV (PCR) Add-On Test Request 08/03/23 08/03/23 08/03/23 11:38 11:38 11:50 WBC RBC Hgb Hct MCV MCH MCHC RDW Plt Count MPV Immature Gran % Neutrophils % Lymphocytes % Monocytes % Eosinophils % Basophils % Nucleated RBC % Absolute Neutrophils Absolute Lymphocytes Absolute Monocytes Absolute Eosinophils Absolute Basophils D-Dimer Sodium Potassium Chloride Carbon Dioxide Anion Gap BUN Creatinine Est GFR (CKD-EPI 2020) Glucose Calcium Total Bilirubin AST ALT Alkaline Phosphatase Troponin I NT-Pro-B Natriuret Pep Total Protein Albumin TSH Free T4 Urine Color Yellow Urine Clarity Clear Urine pH 5.5 Ur Specific [place] 1.015 Urine Protein 30 H Urine Ketones Negative Urine Blood Negative Urine Nitrite Negative Urine Bilirubin Negative Urine Urobilinogen 0.2 Ur Leukocyte Esterase Small H Urine RBC Negative Urine WBC 3-5 Ur Epithelial Cells Few Urine Crystals Negative Urine Bacteria Rare Urine Casts 0-2 Hyaline Urine Mucus Negative Ur Culture Indicated? Yes Ur Random Creatinine 89.63 Urine Glucose Negative COVID-19 Source SARS-CoV-2 (PCR) Influenza Type A (PCR) Influenza Type B (PCR) RSV (PCR) Add-On Test Request DONE 08/03/23 13:11 WBC RBC Hgb Hct MCV MCH MCHC RDW Plt Count MPV Immature Gran % Neutrophils % Lymphocytes % Monocytes % Eosinophils % Basophils % Nucleated RBC % Absolute Neutrophils Absolute Lymphocytes Absolute Monocytes Absolute Eosinophils Absolute Basophils D-Dimer Sodium Potassium Chloride Carbon Dioxide Anion Gap BUN Creatinine Est GFR (CKD-EPI 2020) Glucose Calcium Total Bilirubin AST ALT Alkaline Phosphatase Troponin I 59 NT-Pro-B Natriuret Pep Total Protein Albumin TSH Free T4 Urine Color Urine Clarity Urine pH Ur Specific [place] Urine Protein Urine Ketones Urine Blood Urine Nitrite Urine Bilirubin Urine Urobilinogen Ur Leukocyte Esterase Urine RBC Urine WBC Ur Epithelial Cells Urine Crystals Urine Bacteria Urine Casts Urine Mucus Ur Culture Indicated? Ur Random Creatinine Urine Glucose COVID-19 Source SARS-CoV-2 (PCR) Influenza Type A (PCR) Influenza Type B (PCR) RSV (PCR) Add-On Test Request Insert Bladder Catheter Text: Manual pressure was placed on the patient's foreskin in order to reduce some of the penile skin edema. Once this was done, I was able to visualize the urethral meatus. The penile skin was prepped with Betadine. A 16 Sammarinese coud? tipped catheter was passed through the urethra up into the bladder. The catheter balloon was inflated with 10 cc of sterile water and the catheter was hooked to gravity drainage. Clear urine was obtained.
[2023-08-03] MEDS: Gabapentin 600 MG TAB PO ×2 (15:57→21:11)
[2023-08-03] MEDS: Normal Saline Flush 10 ML SYR IVP (15:58)
[2023-08-03] MEDS: Furosemide 20 MG/2 ML VIAL IVP (15:59)
[2023-08-03] MEDS: Fentanyl Patch Removal 1 EACH TP (16:13)
[2023-08-03 18:43] LABS: Urea Nitrogen Random Urine 368 mg/dL (See Note)
[2023-08-03] MEDS: Albuterol/Ipratropium 3 ML UPD VIAL IH (19:14)
[2023-08-03] MEDS: Finasteride 5 MG TAB PO (21:10)
[2023-08-03] MEDS: Tamsulosin 0.4 MG CAPCR PO (21:10)
[2023-08-03] MEDS: QUEtiapine 25 MG TAB PO (21:11)
[2023-08-03] MEDS: Latanoprost 0.005% 2.5 ML BTL OP (21:20)
[2023-08-03] MEDS: Insulin Aspart 300 UNITS/3 ML PEN SC (21:21)
[2023-08-03] MEDS: Polyethylene Glycol 3350 17 GM PACKET PO (22:59)
[2023-08-04] VITALS (9 sets, daily range): BP systolic 116–138; BP diastolic 64–66; PULSE 70–91; RESP 5–18; TEMP 36.6–37.5; O2SAT 90–95
[2023-08-04] MEDS: Heparin 5,000 UNITS/ML VIAL 5000 UNITS SC ×3 (05:47→21:10)
[2023-08-04 07:29] LABS: HCT 27.1 % (40.0-50.0); HGB 8.4 g/dL (13.5-17.5); MCH 24.6 pg (27.0-33.0); MCV 80 fL (80-95); MPV 11.1 fL (8.0-11.0); Platelet Count 331 10^3/uL (130-400); RBC 3.41 10^6/uL (4.36-5.78); RDW 18.6 % (11.8-14.1); RDW-SD 53.8 fL; WBC 6.48 10^3/uL (4.4-10.8)
[2023-08-04] MEDS: Albuterol/Ipratropium 3 ML UPD VIAL IH ×4 (07:40→19:18)
[2023-08-04 07:47] LABS: Iron 14 ug/dL (65-175); Total Iron Binding Capacity 354 ug/dL (250-450); Transferrin Sat 4 % (20-55)
[2023-08-04 08:03] LABS: Hemoglobin A1C 6.6 % (<5.7)
[2023-08-04 08:11] LABS: Anion Gap 6.5 mmol/L (3-11); BUN 34 mg/dL (7-18); CO2 32.5 mmol/L (21.0-32.0); CREATININE 1.5 mg/dL (0.70-1.30); Calcium 9.1 mg/dL (8.5-10.1); Calculated LDL 63 mg/dL (<100); Chloride 97 mmol/L (98-107); Cholesterol 117 mg/dL (<200); Estimated GFR 45.06 (mL/min/1.73m2); Ferritin 31 ng/mL (26-388); Folate 8.7 ng/mL (8.6-20.0); Glucose 97 mg/dL (74-106); HDL Cholesterol 46 mg/dL (40-60); Magnesium 2.2 mg/dL (1.8-2.4); Potassium 3.8 mmol/L (3.5-5.1); Sodium 136 mmol/L (136-145); Triglyceride 42 mg/dL (<150); Vitamin B12 712 pg/mL (193-986)
[2023-08-04] MEDS: Gabapentin 600 MG TAB PO ×4 (08:21→21:11)
[2023-08-04] MEDS: Famotidine 20 MG TAB PO (08:22)
[2023-08-04] MEDS: Cholecalciferol (Vitamin D3) 1,000 UNIT TAB 1000 UNITS PO (08:22)
[2023-08-04] MEDS: Furosemide 20 MG/2 ML VIAL IVP (08:22)
[2023-08-04] MEDS: Normal Saline Flush 10 ML SYR IVP ×4 (08:22→16:21)
[2023-08-04] MEDS: Nystatin CREAM 30 GM TUBE TP ×2 (08:23→21:12)
[2023-08-04] MEDS: Diclofenac 1% Gel 100 GM TUBE TP ×2 (08:23→21:11)
[2023-08-04] MEDS: Triamcinolone 0.1% CR 15 GM TUBE TP (08:23)
[2023-08-04] MEDS: MORPHine 2 MG/ML SYR IVP ×4 (09:14→23:55)
--- NOTE | 2023-08-04 10:07 | INITIAL_ITS ---
Date of service: 08/04/23 Time of Service: 10:07 Care Management Initial Assmt Initial Assessment REASON FOR HOSPITALIZATION:: Acute CHF with Pleural Effusion, GARO, Anemia PREVIOUS FUNCTIONAL STATUS/SOCIAL/FAMILY SUPPORTS:: Resides in [place] with Aydee odonnell, the couple have three adult children who reside locally. Aydee reports she will be bringing Jamie hewitt from [facility]. CURRENT FUNCTIONAL STATUS:: Note on door states sleeping until evening. Has patient been provided with info about the portal/API?: No Did the patient sign up for the portal?: No CODE STATUS:: DNR/DNI INSURANCE COVERAGE / FINANCIAL ISSUES:: U[employer] Replacement PRIMARY CARE PHYSICIAN:: Yvonne Solorio POTENTIAL DISCHARGE NEEDS:: Urology, Palliative, Wound Care, RT and PT consults ordered as well as Renal US, ECHO PATIENT/FAMILY EDUCATION NEEDS:: Review discharge instructions, discuss Ask Me Three. ANTICIPATED BARRIERS TO DISCHARGE:: None identified. TRANSPORTATION:: Dependent on disposition and mobility. PLAN:: Per provider: diuresis the patient while trending I/Os, daily weights, and very carefully monitoring creatinine. , Aydee reports she will be bringing Jamie home upon discharge, anticipate further evaluations to inform discharge planning considerations. PFSH All Active Problems (Updated 08/06/23 @ 10:52 by Nick Stiles MD) Cellulitis of lower extremity (Acute) Constipation (Acute) Decubital ulcer (Acute) Chronic anemia (Acute) GARO (acute kidney injury) (Acute) Scrotal edema (Acute) Acute CHF (Acute) Heart failure (Acute) Kidney failure (Chronic) Scrotal swelling (Acute) Edema (Acute) 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 exposure (Acute) Respiratory failure with hypoxia (Acute) Bronchiectasis (Chronic) Nocturnal hypoxia (Acute) Restrictive lung disease (Acute) Foreign body in bladder and urethra (Acute) Dislodged Garcia catheter (Acute) Hematuria (Acute) Acute UTI (Acute) Discharge planning issues (Acute) DVT prophylaxis (Acute) Abdominal pain (Acute) Diabetes mellitus (Chronic) BPH (benign prostatic hyperplasia) (Chronic) Essential hypertension (Acute) Lung infiltrate (Acute) UTI (urinary tract infection) (Acute) 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 Ayala Extraction of cataract (02/15/16) [place] R with IOL; and L as well, Dr. Dickinson in [place] Repair of inguinal hernia (08/31/11) Right sided with orchiectomy Rotator Cuff Repair (~1996) Right spinal stenosis (~2005) L foot drop result; L4 laminectomy and L4-5 R discectomy, Dr Campbell; second procedure at [place], [place] approx 02/2017 L1-L2 Laminectomy Dr. 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 Diabetes age 50 Essential hypertension Stroke Uterine cancer Father , Colon CA at age 87. Colon cancer Sister Breast cancer Sister Ovarian cancer Sister Ovarian cancer Sister No problems noted. Sister No problems noted. Sister No problems noted. Sister No problems noted. Sister No problems noted. Brother Diabetes Brother No problems noted. Brother No problems noted. Social History Smoking/Tobacco Use Status: Never Smoking risk assessment performed?: Yes Alcohol Intake: never Drug use: Never Substance use type: does not use Housing: house Do you feel safe at home: Yes Do you feel safe in your relationship?: Yes Additional Social history: lives with .
[2023-08-04] MEDS: Spironolactone 25 MG TAB PO (10:30)
[2023-08-04] MEDS: Folic Acid 1 MG TAB PO (10:30)
[2023-08-04] MEDS: IRON SUCROSE COMPLEX 400 MG in Normal Saline 250 ML 100 MG IVPB (10:44)
[2023-08-04] MEDS: Potassium Chloride 10 MEQ CAPCR 20 MEQ PO ×2 (12:09→21:11)
[2023-08-04] MEDS: diazePAM 2 MG TAB PO ×2 (12:10→21:11)
--- NOTE | 2023-08-04 13:28 | IN_ITS ---
PT Notes Visit Reasons: Acute CHF w/Pleural Effusion,GARO,Anemia Inpatient Physical Therapy Evaluation Date: 08/04/23 Referring Doctor: Dr. Lockhart PT Orders: PT CONSULT: limited ability to ambulate Precautions: fall, standard Patient Profile/Admitting Diagnosis: Patient is an 88 year old male with PMHx of both restrictive lung disease and bronchiectasis, not on oxygen, as well as h/o NIDDM2, HTN, BPH, who was brought to [facility] ED today by ambulance for shortness of breath. He was noted to have significant LE and scrotal edema, and was found to have small right pleural effusion and atelectasis vs infiltrate. He was admitted for management of acute CHF. PT consult received yesterday for evaluation and treatment. Patient declined PT evaluation yesterday afternoon, and is seen for evaluation today, 08/04/23. Social History/Home Situation: Patient lives with his . States that he was fully independent up until about a month ago. Had been ambulating independently and without restriction. He went to [facility] for management of GI pain last month, and states that since then, he's been essentially bed-bound due to LE swelling and pain. Currently relying on for assistance with bed mobility and short distance ambulation for toileting. Equipment Owned/DME: FWW, commode. Has right AFO, which he does not utilize. States he's not even sure where it is. Subjective: Ray states that he is not getting up to walk today due to continued pain in his legs. He was up to the chair earlier, which he states went fine. Family is present at time of evaluation. Objective: General Observation: Semi-reclined at EOB, with LEs in dependent position. Garcia catheter in place. IV in RUE. Weeping wounds throughout the shins R>L, with redness noted in RLE. Mental Status: A&Ox3 Pain: bilat LE pain ROM: Right Upper Extremity: Shoulder flexion to 45*. Elbow and wrist motion WFL Left Upper Extremity: Shoulder flexion 165*. Elbow and wrist motion WFL Right Lower Extremity: Hip flexion to 80*. Knee motion 0-90* demonstrated functionally. Ankle DF to neutral only. Left Lower Extremity: Hip flexion to 80*. Knee motion 0-90* demonstrated functionally. Strength: Right Upper Extremity: Shoulder motions 3-/5 due to chronic dysfunction. Biceps 5/5. Triceps 5/5. Left Upper Extremity: Shoulder motions 3/5 or greater. Biceps 5/5. Triceps 5/5. Right Lower Extremity: Assessed functionally, as patient declines seated assessment. Able to perform SLR, heel slides. Ankle DF 3-/5, with patient reporting chronic foot drop. Left Lower Extremity: Assessed functionally, as patient declines seated assessment. Able to perform SLR, heel slides. Ankle DF 3/5 or greater Bed Mobility/Transfers: sit-supine: mod A x 1 for assistance to LEs Able to scoot in bed with mod A Gait: patient declines Balance: Static Sitting: good Dynamic Sitting: good Static Standing: unable to assess Dynamic Standing: unable to assess Special Tests: Mobility Limitations Standardized Measure [facility] AM-PAC 6 clicks Basic Mobility Inpatient Short Form: Raw Score: 15 CMS Score: 58% impairment Informed Consent/Education: Patient instructed in purpose of PT consult and plan of care. He was instructed in bed exercises for performance between PT sessions. Written directions on board: Ankle pumps 10x SLR 10x Heel slide 10x AA Punch ups 10x Assessment: Patient is an 88 year old male referred to physical therapy services with the diagnosis of limited ability to ambulate. Patient presents with reports of worsening mobility impairments related to ongoing medical issues. He has been only minimally ambulatory for the past 4-6 weeks, and is requiring assistance for bed mobility and transfers. He requires skilled PT intervention to address mobility impairments, and will require continued rehabilitation with PT upon discharge. He currently demonstrates the following impairment level findings: 1. decreased activity tolerance 2. bilat LE edema 3. bilat LE pain 4. Right foot drop Impairments are contributing to the following functional limitations: 1. unable to ambulate household distances 2. unable to manage stairs 3. unable to independently perform bed mobility Patient is assessed as Moderate [id number] complexity based on the following: History: Patient is an 88 year old male with extensive medical history, now in acute care for management of CFH with bilat LE edema. He reports recent decline in functional mobility, and requires skilled PT intervention for strengthening and gait training to allow for safe return home once medically stable. Examination: functional limitations as noted above Presentation: evolving Decision Making: moderate Goals: Goals X1 week 1. Supine-Sit : supervision 2. Sit-Supine : supervision 3. Sit-Stand : supervision 4. Stand-Sit : supervision 5. Bed-Chair : supervision with FWW 6. Chair-Bed : supervision with FWW 7. Gait : : supervision with FWW x 50' 8. Stairs : able to ascend and descend 6 steps with bilat rails, min A Plan of Care/Treatment Plan: 1-2x/day, 7 days/week x 1 week. Plan of care has been reviewed with the POSITION CLASSIFICATION SPECIALIST providing the service under Physical Therapy direction. Initiate Physical Therapy intervention for strengthening, bed mobility, transfers, gait, stairs, balance training, use of assistive device. 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 exposure (Acute) Respiratory failure with hypoxia (Acute) Bronchiectasis (Chronic) Nocturnal hypoxia (Acute) Restrictive lung disease (Acute) Foreign body in bladder and urethra (Acute) Dislodged Garcia catheter (Acute) Hematuria (Acute) Acute UTI (Acute) Discharge planning issues (Acute) DVT prophylaxis (Acute) Abdominal pain (Acute) Diabetes mellitus (Chronic) BPH (benign prostatic hyperplasia) (Chronic) Essential hypertension (Acute) Lung infiltrate (Acute) UTI (urinary tract infection) (Acute) 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 Ayala Extraction of cataract (02/15/16) [place] R with IOL; and L as well, Dr. Dickinson in [place] Repair of inguinal hernia (08/31/11) Right sided with orchiectomy Rotator Cuff Repair (~1996) Right spinal stenosis (~2005) L foot drop result; L4 laminectomy and L4-5 R discectomy, Dr Campbell; second procedure at [place], [place] approx 02/2017 L1-L2 Laminectomy Dr[address] 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
[2023-08-04] MEDS: Docusate Sodium 100 MG CAP PO (13:32)
[2023-08-04] MEDS: Milk of Magnesia 30 ML CUP PO (13:32)
--- NOTE | 2023-08-04 14:55 | PGE_ITS ---
Date of Service Date of service: 08/04/23 Time of Service: 14:55 Assessment and Plan Assessment and plan (1) Acute CHF: Status: Acute Assessment and plan: HFPEF, LVEF 65% w/ no RWMA; normal sized LV and normal size and probably normal RV function as well but now w/ worsening MR and TR, RVSP 48 mm patient diuresing well. I/O yesterday was net negative 2900 mL yesterday continue iv lasix and add spironolactone to his regimen, GARO is improving BUN 34 and creatinine 1.5 (down from 2.0 yesterday) (2) GARO (acute kidney injury): Status: Acute Assessment and plan: With evidence of urinary retention by bladder scan. Caban catheter placement is a good idea for I/O trending, and urology is consulted. renal US demonstrated distended urinary bladder w/out hydronephrosis. Caban was placed yesterday by Dr. Mccullough. Draining clear yellow urine now. (3) Scrotal edema: Status: Acute Assessment and plan: As above - diurese, place caban catheter (4) Chronic anemia: Status: Acute Assessment and plan: anemia studies c/w iron deficiency, I have put him on venofer. keep on famotidine for GI protection (5) Bronchiectasis: Status: Chronic Assessment and plan: Continue home therapy RT consult (6) Diabetes mellitus: Status: Chronic Assessment and plan: Per chart review. Not on therapy. Obtain A1C Cover with SSI Carb consistent diet (7) Decubital ulcer: Status: Acute Assessment and plan: L buttock, present on admission. Patient states that he has not been ambulatory since return from [facility] [place]. He states he spent most of his time in bed. He does not have home health currently. Wound care and PT are consulted. (8) Discharge planning issues: Status: Acute Assessment and plan: DNR/DNI (9) DVT prophylaxis: Status: Acute Assessment and plan: SC heparin Subjective Subjective Interval history since last seen: Jamie is feeling better, less dyspnea. He is now on room air. He has lost 7.7 kg since admission (111.1 to 103.4). He remains on lasix iv. His only complaint is that of constipation despite getting miralax and docusate. Exam Narrative Exam Narrative: elderly white male lying in bed who had sunk to the lower half of the bed. I assisted him in getting moved to the top of his bed in more upright position, leaving his HOB at 30 degrees He appear to be in no acute distress, not dyspneic and able to speak in complete sentences Lungs: clear anteriorly and posteriorly w/ only slight diminished breath sounds at the bases; no rhonchi or wheezing Heart: distant heart tones but regular, no thrill or heave Abdomen: soft, slight distension but nontender Legs and scrotum w/ 3+ edema; palpable pedal pulses, legs w/ diffue bilteral redness over tibia probably d/t dependent edema I helped nursing in elevation his legs w/ couple pillows Objective Last Vital Signs Temp 36.6 C 08/04/23 10:51 Pulse 88 08/04/23 12:31 Resp 18 08/04/23 10:51 BP 138/64 08/04/23 10:51 Pulse Ox 93 08/04/23 10:51 Laboratory Results - last 24 hr 08/04/23 08/04/23 08/04/23 06:37 06:37 06:37 WBC 6.48 RBC 3.41 L Hgb 8.4 L Hct 27.1 L MCV 80 MCH 24.6 L MCHC 31.0 L RDW 18.6 H Plt Count 331 MPV 11.1 H Sodium 136 Potassium 3.8 Chloride 97 L Carbon Dioxide 32.5 H Anion Gap 6.5 BUN 34 H Creatinine 1.5 H Est GFR (CKD-EPI 2020) 45.06 Glucose 97 Hemoglobin A1c Calcium 9.1 Magnesium 2.2 Iron 14 L TIBC 354 Transferrin % Sat 4 L Ferritin 31 Triglycerides 42 Total Cholesterol 117 LDL Cholesterol, Calc 63 HDL Cholesterol 46 Vitamin B12 712 Folate 8.7 08/04/23 06:37 WBC RBC Hgb Hct MCV MCH MCHC RDW Plt Count MPV Sodium Potassium Chloride Carbon Dioxide Anion Gap BUN Creatinine Est GFR (CKD-EPI 2020) Glucose Hemoglobin A1c 6.6 H Calcium Magnesium Iron TIBC Transferrin % Sat Ferritin Triglycerides Total Cholesterol LDL Cholesterol, Calc HDL Cholesterol Vitamin B12 Folate Time Spent with Patient Time Spent with Patient: 35-49 minutes Time was spent: preparing to see the patient(eg.review tests), ordering medications,tests, procedures, referring, communicating with other health career orientation teacher, indepentently interpreting results, counseling the patient and care coordination
[2023-08-04] MEDS: Bisacodyl 5 MG TABEC PO (16:18)
[2023-08-04] MEDS: Methylnaltrexone 12 MG/0.6 ML VIAL 8 MG SC (16:19)
[2023-08-04] MEDS: Furosemide 40 MG/4 ML VIAL IVP (16:19)
--- NOTE | 2023-08-04 16:25 | TELEP.MEDR_ITS ---
Date of service: 08/04/23 Time of Service: 16:25 [facility] Home Med Rec Allergies Allergies: aspirin Adverse Reaction (Intermediate, Verified 06/17/23 11:19) GI Bleeding NSAIDS (Non-Steroidal Anti-Inflamma Adverse Reaction (Intermediate, Verified 06/17/23 11:19) GI Bleeding Interview Person Interviewed: No one available for interview- I am posting note based on most recent pharmacy fill history. Additional Notes Additional Notes: The following medications have recently been filled and appear to be active, though it is not clear if patient is still taking or when last doses were: * Metoprolol succinate ER 100mg daily: filled 08/03 for 90 day supply * Ipratropium/albuterol 0.5-2.5mg/3mL: filled 07/29 for day supply * Oxycodone 10mg 4 times daily PRN: 112 tablets filled 07/25 for 28 day supply * quetiapine 25mg every evening: filled 07/20 for day supply * furosemide 40mg daily: filled 07/20 for day supply * gabapentin 600mg 4 times daily: filled 07/18 for day supply * tamsulosin 0.4mg at bedtime: filled 07/18 for day supply * losartan 100mg every day: filled 07/07 for 90 day supply * latanoprost eye drops 1 drop each eye HS: filled 07/06 for 60 day supply * finasteride 5mg every evening: filled 06/08 for 90 day supply * linzess 290mcg daily PRN: filled 06/04 for 90 day supply * hydrochlorothiazide 25mg daily: filled 05/30 for 90 day supply Of note, fentanyl 25mcg/hr patch was last filled 04/21 for a 30 day supply. It has not been filled since, does not appear to be active. Other medications that have not recently been filled, and appear to be : buspirone, famotidine, nystatin, ondansetron, Trelegy, triamcinolone. Recommended Changes Attestation: The home medication list is now updated to the best of my knowledge and is ready to be reconciled by the provider. Please contact the [facility] Medication Reconciliation Pharmacist at for any questions.
--- NOTE | 2023-08-04 16:25 | TELEP.MEDREC ---
Date of service: 08/04/23 Time of Service: 16:25 [facility] Home Med Rec Allergies Allergies: aspirin Adverse Reaction (Intermediate, Verified 06/17/23 11:19) GI Bleeding NSAIDS (Non-Steroidal Anti-Inflamma Adverse Reaction (Intermediate, Verified 06/17/23 11:19) GI Bleeding Interview Person Interviewed: No one available for interview- I am posting note based on most recent pharmacy fill history. Additional Notes Additional Notes: The following medications have recently been filled and appear to be active, though it is not clear if patient is still taking or when last doses were: Metoprolol succinate ER 100mg daily: filled 08/03 for day supply Ipratropium/albuterol 0.5-2.5mg/3mL: filled 07/29 for day supply Oxycodone 10mg 4 times daily PRN: 112 tablets filled 07/25 for day supply quetiapine 25mg every evening: filled 07/20 for day supply furosemide 40mg daily: filled 07/20 for day supply gabapentin 600mg 4 times daily: filled 07/18 for day supply tamsulosin 0.4mg at bedtime: filled 07/18 for day supply losartan 100mg every day: filled 07/07 for day supply latanoprost eye drops 1 drop each eye HS: filled 07/06 for 60 day supply finasteride 5mg every evening: filled 06/08 for day supply linzess 290mcg daily PRN: filled 06/04 for day supply hydrochlorothiazide 25mg daily: filled 05/30 for 90 day supply Of note, fentanyl 25mcg/hr patch was last filled 04/21 for a 30 day supply. It has not been filled since, does not appear to be active. Other medications that have not recently been filled, and appear to be : buspirone, famotidine, nystatin, ondansetron, Trelegy, triamcinolone. Recommended Changes Attestation: The home medication list is now updated to the best of my knowledge and is ready to be reconciled by the provider. Please contact the [facility] Medication Reconciliation Pharmacist at for any questions.
[2023-08-04] MEDS: Insulin Aspart 300 UNITS/3 ML PEN SC ×2 (17:07→21:21)
[2023-08-04] MEDS: Melatonin 3 MG TAB PO (21:11)
[2023-08-04] MEDS: Tamsulosin 0.4 MG CAPCR PO (21:11)
[2023-08-04] MEDS: Latanoprost 0.005% 2.5 ML BTL OP (21:11)
[2023-08-04] MEDS: Finasteride 5 MG TAB PO (21:11)
[2023-08-04] MEDS: QUEtiapine 25 MG TAB PO (21:11)
[2023-08-04] MEDS: oxyCODONE 10 MG TAB PO (22:01)
[2023-08-05 01:00] VITALS: BP 109/54; PULSE 80; RESP 18; TEMP 36.6; O2SAT 96
[2023-08-05] MEDS: Heparin 5,000 UNITS/ML VIAL 5000 UNITS SC ×3 (05:44→22:21)
[2023-08-05] MEDS: oxyCODONE 10 MG TAB PO ×3 (05:44→19:55)
[2023-08-05 07:16] VITALS: BP 119/68; PULSE 70; RESP 20; TEMP 35.6; O2SAT 96
[2023-08-05 07:35] VITALS: PULSE 75; RESP 8; O2SAT 96
[2023-08-05] MEDS: Albuterol/Ipratropium 3 ML UPD VIAL IH (07:35)
[2023-08-05 08:06] LABS: Abs Immature Grans 0.01 10^3/uL (0.0-0.06); Absolute Basophil Count 0.04 10^3/uL (0.0-0.2); Absolute Eosinophil Count 0.23 10^3/uL (0.0-0.7); Absolute Lymphocyte Count 1.31 10^3/uL (1.2-3.4); Absolute Monocyte Count 0.91 10^3/uL (0.1-0.8); Absolute Neutrophil Count 3.55 10^3/uL (1.2-6.7); Basophils % 0.7; Eosinophils % 3.8; HCT 26.3 % (40.0-50.0); HGB 8.2 g/dL (13.5-17.5); Immature Grans % 0.2; Lymphocytes % 21.7; MCH 25.5 pg (27.0-33.0); MCHC 31.2 % (32.0-36.0); MCV 82 fL (80-95); MPV 11.4 fL (8.0-11.0); Neutrophils % 58.6; Platelet Count 294 10^3/uL (130-400); RBC 3.22 10^6/uL (4.36-5.78); RDW 18.2 % (11.8-14.1); RDW-SD 53.8 fL; WBC 6.05 10^3/uL (4.4-10.8)
[2023-08-05 08:22] LABS: Anion Gap 6.8 mmol/L (3-11); BUN 23 mg/dL (7-18); CO2 33.2 mmol/L (21.0-32.0); CREATININE 1.2 mg/dL (0.70-1.30); Calcium 9.1 mg/dL (8.5-10.1); Chloride 99 mmol/L (98-107); Estimated GFR 58.89 (mL/min/1.73m2); Glucose 99 mg/dL (74-106); Potassium 3.9 mmol/L (3.5-5.1); Sodium 139 mmol/L (136-145)
[2023-08-05] MEDS: Cholecalciferol (Vitamin D3) 1,000 UNIT TAB 1000 UNITS PO (09:32)
[2023-08-05] MEDS: Gabapentin 600 MG TAB PO ×4 (09:32→20:25)
[2023-08-05] MEDS: Potassium Chloride 10 MEQ CAPCR 20 MEQ PO ×2 (09:32→20:25)
[2023-08-05] MEDS: Furosemide 40 MG/4 ML VIAL IVP ×2 (09:33→16:46)
[2023-08-05] MEDS: Famotidine 20 MG TAB PO (09:33)
[2023-08-05] MEDS: Folic Acid 1 MG TAB PO (09:33)
[2023-08-05] MEDS: Spironolactone 25 MG TAB PO (09:33)
[2023-08-05] MEDS: Nystatin CREAM 30 GM TUBE TP ×2 (09:37→22:20)
[2023-08-05] MEDS: Diclofenac 1% Gel 100 GM TUBE TP ×2 (09:37→20:31)
[2023-08-05] MEDS: Triamcinolone 0.1% CR 15 GM TUBE TP (09:38)
[2023-08-05] MEDS: IRON SUCROSE COMPLEX 300 MG in Normal Saline 250 ML 167 MG IVPB (09:49)
[2023-08-05] MEDS: Tiotropium Bromide-Respimat 10 PUFF INH 2 PUFF IH (09:49)
[2023-08-05] MEDS: Budesonide/Formoterol 80/4.5 6.9 GM 60 PUFF INH IH ×2 (09:50→19:19)
--- NOTE | 2023-08-05 09:52 | W.PM.PROGNOT ---
Date of Service Date of service: 08/05/23 Time of Service: 09:52 Assessment and Plan Assessment and plan (1) Acute CHF: Status: Acute Assessment and plan: HFPEF, LVEF 65% w/ no RWMA; normal sized LV and normal size and probably normal RV function as well but now w/ worsening MR and TR, RVSP 48 mm patient diuresing well. I/O yesterday was net negative 4130 mL yesterday, wt down to 103 kg yesterday; not weighed yet today continue iv lasix and add spironolactone to his regimen, GARO is improving BUN 23 and creatinine 1.2 (down from 2.0, 1.5) will add Jardiance prior to discharge (2) GARO (acute kidney injury): Status: Acute Assessment and plan: With evidence of urinary retention by bladder scan. renal US demonstrated distended urinary bladder w/out hydronephrosis. s/p caban placement by Dr. Mccullough on Sunday. (3) Scrotal edema: Status: Acute Assessment and plan: scrotal edema has improved w/ diuresing and overall improved CHF (4) Chronic anemia: Status: Acute Assessment and plan: anemia studies c/w iron deficiency, I have put him on venofer. keep on famotidine for GI protection (5) Bronchiectasis: Status: Chronic Assessment and plan: Continue home therapy RT consult He is currently on DuoNeb qid, I think this can be changed to prn rather than scheduled as he is not having COPD exacerbation; he had been on Trelegy Ellipta and this was ordered by Dr. Lockhart on admission but apparently [facility] [place] telepharmacy dc the order as he had not allegedly filled this recently but looking back on his PCP outside medication orders, this had been ordered as recent as late February of this year. He should be placed on the equivalent while hospitalized. I asked the pharmacist to reconcile this (6) Constipation: Status: Acute Assessment and plan: improved w/ enema and dulcolax along w/ Relistor; continue w/ stool softeners and schedule Miralax (7) Diabetes mellitus: Status: Chronic Assessment and plan: carb consistent diet. Inuslin per sliding scale; glucose running 99 to 170. A1C 6.6% (8) Decubital ulcer: Status: Acute Assessment and plan: L buttock, present on admission. Patient states that he has not been ambulatory since return from [facility]. He states he spent most of his time in bed. He does not have home health currently. Wound care and PT are consulted. Patient needs continued P.T. treatment to improve his mobility (9) Discharge planning issues: Status: Acute Assessment and plan: DNR/DNI (10) DVT prophylaxis: Status: Acute Assessment and plan: SC heparin Subjective Subjective Interval history since last seen: Patient finally had a good BM yesterday and his abdomen feels better. He is complaining however of headache and generalized aches and pains. Dyspnea has improved. he is now down to 1 lpm NC. Exam Narrative Exam Narrative: Ray is alert and oriented x 3, no distress other than his headache and generalized aches and pains Lungs: clear anteriorly but still w/ some bibasilar rales; no rhonchi or wheezing Heart: irregularly irregular, controlled rate; harsh systolic murmur c/w MR Abdomen: soft, nontender Legs: 1+ taut edema both lower legs w/ some redness over pretibial surfaces c/w stasis dermatitis; pedal pulses present although weak, no cyanosis Objective Last Vital Signs Temp 35.6 C L 08/05/23 07:16 Pulse 75 08/05/23 07:35 Resp 20 08/05/23 07:16 BP 119/68 08/05/23 07:16 Pulse Ox 96 08/05/23 07:35 Laboratory Results - last 24 hr 08/05/23 08/05/23 07:28 07:28 WBC 6.05 RBC 3.22 L Hgb 8.2 L Hct 26.3 L MCV 82 MCH 25.5 L MCHC 31.2 L RDW 18.2 H Plt Count 294 MPV 11.4 H Immature Gran % 0.2 Neutrophils % 58.6 Lymphocytes % 21.7 Monocytes % 15.0 Eosinophils % 3.8 Basophils % 0.7 Nucleated RBC % 0.0 Absolute Neutrophils 3.55 Absolute Lymphocytes 1.31 Absolute Monocytes 0.91 H Absolute Eosinophils 0.23 Absolute Basophils 0.04 Sodium 139 Potassium 3.9 Chloride 99 Carbon Dioxide 33.2 H Anion Gap 6.8 BUN 23 H Creatinine 1.2 Est GFR (CKD-EPI 2020) 58.89 Glucose 99 Calcium 9.1 Time Spent with Patient Time Spent with Patient: 25-34 minutes Time was spent: preparing to see the patient(eg.review tests), ordering medications,tests, procedures, referring, communicating with other health acute care clinical nurse specialist, indepentently interpreting results, counseling the patient and care coordination
[2023-08-05] MEDS: Acetaminophen 500 MG TAB 1000 MG PO (10:05)
[2023-08-05 11:35] VITALS: BP 120/70; PULSE 75; RESP 16; TEMP 36.4; O2SAT 96
[2023-08-05] MEDS: Insulin Aspart 300 UNITS/3 ML PEN SC ×3 (12:15→22:21)
--- NOTE | 2023-08-05 13:52 | PT.INTREAT ---
Date of service: 08/05/23 Time of Service: 11:45 PT Notes Visit Reasons: Acute CHF w/Pleural Effusion,GARO,Anemia Inpatient Physical Therapy Treatment Note [facility] Date: 08/05/2023 PRECAUTIONS: fall, standard SUBJECTIVE: Upset initially when I arrived to get him out of bed after lunch. Had been sleeping and I had to awaken him. Did indicate that I had tried to work with him 3 times in the am and due to request to wait had returned after lunch. He was agreeable once we discussed his decision to wait until later. OBJECTIVE: ? PAIN: Complained of tops of legs hurting prior to getting out of bed. ? Therapeutic Activities (61170t1): Direct one-on-one instruction in dynamic activities to improve functional performance. ? BED MOBILITY/TRANSFERS? Rolling L/R: Able to roll to the right when getting out of bed with HOB at approximately 40 degrees. Supine-sit: Mod assist of one ? Sit-stand: CGA of 2 ? Stand-sit: CGA of 2 ? Provided skilled cues and instruction on performance and technique throughout. ? GAIT? Assistive Device: FWW? Weight bearing: Full Assist: CGA of one with nurse in room also? Distance:? 23 ft ? Deviation: slow, shuffling gait. ? Therapeutic Exercises (75679h3): Direct one-on-one instruction in therapeutic exercises to develop strength, endurance, range of motion and flexibility. ? Exercises : Able to perform AP, SLR, heel slides and left UE arm punch ups for 10 reps each. Right arm receiving IV, so held on punch ups on this side. ? Provided skilled instruction in proper exercise performance Provided skilled manual cues to facilitate proper muscle recruitment and/or form: [] ASSESSMENT:? Did well with ambulation today, once up. PLAN: Continue with current POC with focus bed mobility and ambulation on flat surfaces / stairs for improved ADL function. TREATMENT CODE/TIME: [id number], 11:45 to 11:55 (10') and 1:05 to 1:20 (15')
[2023-08-05] MEDS: MORPHine 2 MG/ML SYR IVP ×2 (14:01→22:32)
[2023-08-05] MEDS: Docusate Sodium 100 MG CAP PO ×2 (14:02→20:26)
[2023-08-05 16:45] VITALS: BP 124/74; PULSE 84; RESP 20; TEMP 37.1; O2SAT 93
[2023-08-05 19:56] VITALS: BP 108/61; PULSE 85; RESP 18; TEMP 37.3; O2SAT 94
[2023-08-05] MEDS: Acetaminophen 325 MG TAB 650 MG PO (20:24)
[2023-08-05] MEDS: Melatonin 3 MG TAB PO (20:24)
[2023-08-05] MEDS: diazePAM 2 MG TAB PO (20:26)
[2023-08-05] MEDS: Latanoprost 0.005% 2.5 ML BTL OP (22:20)
[2023-08-05] MEDS: Finasteride 5 MG TAB PO (22:21)
[2023-08-05] MEDS: Tamsulosin 0.4 MG CAPCR PO (22:21)
[2023-08-05] MEDS: Senna TAB 1 TAB PO (22:21)
[2023-08-05] MEDS: QUEtiapine 25 MG TAB PO (22:21)
[2023-08-06] MEDS: oxyCODONE 10 MG TAB PO ×3 (00:03→19:57)
[2023-08-06] MEDS: diazePAM 2 MG TAB PO ×3 (00:03→21:44)
[2023-08-06 00:09] VITALS: BP 122/59; PULSE 84; RESP 18; TEMP 36.3; O2SAT 94
[2023-08-06 04:05] VITALS: BP 111/72; PULSE 78; RESP 18; TEMP 36.6; O2SAT 93
[2023-08-06] MEDS: Heparin 5,000 UNITS/ML VIAL 5000 UNITS SC ×3 (06:23→21:45)
[2023-08-06 07:37] VITALS: BP 116/73; PULSE 74; RESP 18; TEMP 36; O2SAT 93
[2023-08-06] MEDS: Budesonide/Formoterol 80/4.5 6.9 GM 60 PUFF INH IH ×2 (07:45→19:27)
[2023-08-06] MEDS: Tiotropium Bromide-Respimat 10 PUFF INH 2 PUFF IH (07:47)
[2023-08-06 07:55] VITALS: O2SAT 93
[2023-08-06] MEDS: Furosemide 40 MG/4 ML VIAL IVP ×2 (09:09→17:20)
[2023-08-06] MEDS: Cholecalciferol (Vitamin D3) 1,000 UNIT TAB 1000 UNITS PO (09:09)
[2023-08-06] MEDS: IRON SUCROSE COMPLEX 300 MG in Normal Saline 250 ML 167 MG IVPB (09:09)
[2023-08-06] MEDS: Spironolactone 25 MG TAB PO (09:10)
[2023-08-06] MEDS: Triamcinolone 0.1% CR 15 GM TUBE TP (09:10)
[2023-08-06] MEDS: Famotidine 20 MG TAB PO (09:10)
[2023-08-06] MEDS: Folic Acid 1 MG TAB PO (09:10)
[2023-08-06] MEDS: Potassium Chloride 10 MEQ CAPCR 20 MEQ PO ×2 (09:10→19:58)
[2023-08-06] MEDS: Nystatin CREAM 30 GM TUBE TP ×2 (09:10→19:58)
[2023-08-06] MEDS: Gabapentin 600 MG TAB PO ×4 (09:10→19:57)
[2023-08-06] MEDS: Docusate Sodium 100 MG CAP PO ×3 (09:10→19:57)
[2023-08-06] MEDS: Diclofenac 1% Gel 100 GM TUBE TP ×2 (09:10→21:49)
--- NOTE | 2023-08-06 10:37 | W.PM.PROGNOT ---
Date of Service Date of service: 08/06/23 Time of Service: 10:37 Assessment and Plan Assessment and plan (1) Acute CHF: Status: Acute Assessment and plan: HFPEF, LVEF 65% w/ no RWMA; normal sized LV and normal size and probably normal RV function as well but now w/ worsening MR and TR, RVSP 48 mm patient diuresing well. I/O yesterday was net negative 2485 mL yesterday, wt down to 102.8 kg labs not ordered for this morning. I will get repeat CBC, BMP and BNP continue iv lasix and spironolactone (2) Cellulitis of lower extremity: Status: Acute Assessment and plan: Initially the redness of his lower legs was attributed to dependent rubor from chronic leg edema from CHF. however he has some blisters that are weeping some purulent appearing material. I will put him on Ancef empirically for probable Strep pyogenes. (3) GARO (acute kidney injury): Status: Acute Assessment and plan: With evidence of urinary retention by bladder scan. renal US demonstrated distended urinary bladder w/out hydronephrosis. s/p caban placement by Dr. Mccullough on Sunday. improved BUN and creatinine at 17 and 1.3 (4) Scrotal edema: Status: Acute Assessment and plan: scrotal edema has improved w/ diuresing and overall improved CHF (5) Chronic anemia: Status: Acute Assessment and plan: anemia studies c/w iron deficiency, I have put him on venofer. keep on famotidine for GI protection. today is his last day of Venofer. Hb now at 8.4 gm (6) Bronchiectasis: Status: Chronic Assessment and plan: Continue home therapy RT consult Spiriva and Symbicort ordered in place of his Trelegy. I changed his DuoNeb to q4h prn. (7) Constipation: Status: Acute Assessment and plan: improved w/ enema and dulcolax along w/ Relistor; continue w/ stool softeners and schedule Miralax (8) Diabetes mellitus: Status: Chronic Assessment and plan: carb consistent diet. Inuslin per sliding scale; glucose running 115 to 163, A1C 6.6% (9) Decubital ulcer: Status: Acute Assessment and plan: L buttock, present on admission. Patient states that he has not been ambulatory since [place] [facility] He states he spent most of his time in bed. He does not have home health currently. Wound care and PT are consulted. Patient needs continued P.T. treatment to improve his mobility (10) Discharge planning issues: Status: Acute Assessment and plan: DNR/DNI I anticipate he will need either SNF or aggressive home health w/ P.T. and O.T. as well as nursing and ADVERTISING STATISTICAL CLERK. his is adamant against him [facility], she would prefer home health services. (11) DVT prophylaxis: Status: Acute Assessment and plan: SC heparin Subjective Subjective Interval history since last seen: [place] continues to improve. Not dyspneic at rest. Still on 2 lpm. Per his he has oxygen at home which he wears at night. 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 Ray still can not tolerate wearing the TRENT wraps. He is having some discharge from skin blisters from his leg edema. Exam Narrative Exam Narrative: Ray is alert and oriented, NAD Lungs: clear anteriorly but diminished at the bases posteriorly w/ some bibasilar rales, no rhonchi or wheezing Heart: irregularly irregular at controlled rate (per ICU staff his rhythm has been chronically afib rates 70's to 90's Abdomen: obese, soft, nontender, nondistended Legs: 1+ bilateral leg edema but now able to see some definition of his ankles, both tibia have persistent redness and the right leg has some small blisters draining purulent material Objective Last Vital Signs Temp 36.0 C L 08/06/23 07:37 Pulse 74 08/06/23 07:37 Resp 18 08/06/23 07:37 BP 116/73 08/06/23 07:37 Pulse Ox 93 08/06/23 07:55 Laboratory Results - last 24 hr 08/03/23 11:38 Urine Urea Nitrogen 368 Time Spent with Patient Time Spent with Patient: 25-34 minutes Time was spent: preparing to see the patient(eg.review tests), ordering medications,tests, procedures, referring, communicating with other health director of home care hospice, indepentently interpreting results, counseling the patient and care coordination
[2023-08-06] MEDS: ceFAZolin 2 GM/50 ML BAG IVPB ×2 (11:30→18:30)
[2023-08-06 11:31] LABS: Abs Immature Grans 0.03 10^3/uL (0.0-0.06); Absolute Basophil Count 0.05 10^3/uL (0.0-0.2); Absolute Lymphocyte Count 1.15 10^3/uL (1.2-3.4); Absolute Monocyte Count 0.89 10^3/uL (0.1-0.8); Absolute Neutrophil Count 4.49 10^3/uL (1.2-6.7); Basophils % 0.7; Eosinophils % 5.7; HGB 8.4 g/dL (13.5-17.5); Immature Grans % 0.4; Lymphocytes % 16.4; MCH 25.4 pg (27.0-33.0); MCHC 31.1 % (32.0-36.0); MCV 82 fL (80-95); Monocytes % 12.7; Neutrophils % 64.1; Platelet Count 314 10^3/uL (130-400); RBC 3.31 10^6/uL (4.36-5.78); RDW 18.3 % (11.8-14.1); RDW-SD 53.1 fL; WBC 7.01 10^3/uL (4.4-10.8)
--- NOTE | 2023-08-06 11:48 | PT.INNT ---
Date of service: 08/06/23 Time of Service: 10:50 PT Notes Visit Reasons: Acute CHF w/Pleural Effusion,GARO,Anemia Patient refused therapy x2. Nurse Kathleen and Olga Forde are aware. This therapist helped patient reposition in recliner as patient had slid down until patient's shoulders were in the crease where the chair back meets the seat of the recliner. Patient reported that he was unable even to assist repositioning due to pain. Nurse Kathleen aware of this also.
[2023-08-06 12:01] LABS: C-Reactive Protein 2.85 mg/dL (0.0-0.3)
[2023-08-06] MEDS: Insulin Aspart 300 UNITS/3 ML PEN SC ×3 (12:05→21:47)
[2023-08-06 12:10] LABS: Anion Gap 4.9 mmol/L (3-11); BUN 17 mg/dL (7-18); CO2 32.1 mmol/L (21.0-32.0); CREATININE 1.3 mg/dL (0.70-1.30); Calcium 9.2 mg/dL (8.5-10.1); Chloride 98 mmol/L (98-107); Glucose 148 mg/dL (74-106); NT-proBNP 6285 pg/mL (<300); Potassium 4.2 mmol/L (3.5-5.1); Sodium 135 mmol/L (136-145)
--- NOTE | 2023-08-06 16:11 | W.NUTRFU ---
Date of service: 08/06/23 Time of Service: 16:11 Nutrition Note NOTE: Reason for visit: Routine consult - diabetic education Jamei is 88yo male admitted with acute CHF, GARO, and lower L leg celulitis with decubitus ulcer on L buttock and constipation (resolved after meds and diuresing). Pt's most recent A1C 6.6% - new dx of diabetes. Pt started on Jardiance appropriately due to kidney disease and CHF. PT covered with sensitive sliding scale insulin Aspart at meals if necessary. Pt down 9.93kg since admission due to diuresis. 100% of meals taken since admission. No noted food allergies or orthodoxy needs toward foods. Pt ordered for heart healthy, consistent cho diet with normal textures. Estimated nutrition needs 2018kcals ([id number]), 68g protein (1g per kg of ideal body weight) Attempted to meet with pt x2 and unable to speak with him due to provider in room or sleeping. No significant nutrition intervention planned other than providing diabetes education when able to meet with patient (will amend document once provided) Time Spent in Nutritional Counseling and Treatment: 0
--- NOTE | 2023-08-06 16:17 | CMPROGNOTE_ITS ---
Date of service: 08/06/23 Time of Service: 16:17 Care Management Progress Note Progress Note Text Progress Note Text: S/O: Remains acute, refused PT today but was up throughout the day with nursing at times a 1 assist, other times documented as a 2 assist. remains adamant he will be returning home with her; CM continues to follow. A: 88 year old male admitted to [facility] 08/03/23 with acute CHF w/pleural effusion, GARO, anemia P: Ray continues to be closely monitored and treated, anticipate new home health services for PT/OT as his wants him to return home; CM continues to follow.
[2023-08-06] MEDS: Normal Saline Flush 10 ML SYR IVP (17:20)
[2023-08-06 19:45] VITALS: BP 116/67; PULSE 85; RESP 18; TEMP 36.5; O2SAT 95
[2023-08-06] MEDS: Melatonin 3 MG TAB PO (19:57)
--- NOTE | 2023-08-06 21:11 | WOUNDCONS ---
- If Service Date Differs Date of service: 08/06/23 Time of Service: 20:00 Wound Initial Evaluation Narrative: Patient is an 88 yom, He was brought in by EMS for SOB. Per patient he had spent about a month at [facility] for treatment of a GI bleed. Conservative treatment failed and he was treated with an open Laparotomy. He was transferred there to SNF, and then discharged to home. He was home with no services, which according to patient report was too much for his , He has spent most of the time bed bound, and until the last couple of days he was unable to assist with turning and repositioning of himself in bed. Here he has been treated for CHF. He has been diuresed And edema per provider report has improved. Patient is globally alert and oriented and provides the wound nurse with a good recent history. Patient consents to consult. H&P, labs allergies and pertinent information were reviewed prior to the consult. Body Four View: 1 - Unstageable ulcer 2 - rash with stasis ulcer 3 - Rash with stasis ulcer - Wound Left Buttock Wound Type: Pressure Ulcer, Full Thickness Wound General Appearance: Necrotic Wound Bed Greatest Portion: Yellow (Slough) Wound Bed Lesser Portion: Pale [place] Wound Surrounding Tissue Appearance: [place] Percent of Wound Bed Granulated/Red: 0 Percent of Wound Bed Slough/Yellow: 100 Wound Length: 1 cm Wound Width: 1.6 cm Wound Depth: 0.2 cm Wound Drainage Amount: Minimal Wound Drainage Odor: None/Absent Wound Drainage Description: Purulent Wound Topical Solution/Irrigant: Antibiotic Irrigant Wound Debridement Method: Other (Debrisoft) Wound Debridement Result: Healthy Tissue Revealed, Necrotic Remains Wound Debridement Amount of Tissue Removed: Minimal Right Tib/Fib(lower leg) Wound Type: Statis Ulcer, Full Thickness, Other (Rash) Wound General Appearance: Reddened, Draining Wound Bed Greatest Portion: Pale [place] Wound Surrounding Tissue Appearance: Dark Red Percent of Wound Bed Granulated/Red: 0 Wound Length: 21.5 cm Wound Width: 23 cm Wound Depth: 0.3 cm Wound Drainage Amount: Minimal Wound Drainage Odor: None/Absent Wound Drainage Description: Serous Wound Topical Solution/Irrigant: Antibiotic Irrigant Wound Debridement Method: Other (Debrisoft) Wound Debridement Result: Healthy Tissue Revealed Wound Debridement Amount of Tissue Removed: Minimal Left Tib/Fib(lower leg) Wound Type: Statis Ulcer, Partial Thickness, Other Wound General Appearance: Reddened, Draining, Unapproximated Wound Bed Greatest Portion: Red (Granulation) Wound Surrounding Tissue Appearance: Dark Red Percent of Wound Bed Granulated/Red: 100 Wound Length: 19.5 cm Wound Width: 12.7 cm Wound Depth: 0.1 cm Wound Drainage Amount: Minimal Wound Drainage Odor: None/Absent Wound Drainage Description: Bloody Wound Topical Solution/Irrigant: Antibiotic Irrigant Wound Debridement Method: Other (Debrisoft) Wound Debridement Result: Healthy Tissue Revealed Wound Debridement Amount of Tissue Removed: Minimal - Circulation, Sensation, Motion Edema Degree: 3+ Peripheral Pulse Strength: Normal Capillary Refill: Less than 3 seconds Sensation Description: Within Normal Limits Skin Temperature: Warm Skin Color: Pale - JAGDEEP Comment:: not performed - Pain Pain Level: 1 (With debridement of buttock) Pain Description: Burning Patient has been unable to move much for the recent time. That plus with only his 82 year old spouse to assist him, has been overwhelming and contributed to the formation of the wounds. Will attempt exudate management and compression to treat the BLE. Will use Anasept gel on the buttocks to facilitate the removal of the slough in the wound bed. Wound tablet would not connect to the senior sql server database developer. Pictures of the wound cannot be uploaded - Treatment/Dressing Change Topicals/Ointments: Anasept Gel Cleanse With: Anasept Dressing Types: Elastic Bandage, Mepilex w/Border - Nutrition Education Reviewed Nutrition Education: No - Recomendation Recomendation:: BLE. Machias Anasept on the wound bed and allow to dwell for two minutes. Scrub with Debrisoft and then pat dry. Cover open areas with Mepilex. Apply compression with caterina wraps as patient will tolerate. Change Mepilex every 3 days. Unwrap the aces daily to inspect legs, then wrap again. Keep legs elevated as patient will tolerate. Left buttock. Machias wound bed with Anasept, allow to dwell for two minutes. Scrub with Debrisoft, then pat dry. Apply a thin layer of Anasept gel to the wound bed, Cover with a Mepilex. Change every 2 days or PRN. Offload pressure every 2 hours as patient will tolerate Physcian/Nurse Practioner Notified: Yes (Dr. Stiles) Treatment Time - Time Total Time Spent with Patient: 1 hour - Patient Will be Seen Weekly Treatment: daily - For: For:: 1 week
[2023-08-06] MEDS: Acetaminophen 325 MG TAB 650 MG PO (21:43)
[2023-08-06] MEDS: Senna TAB 1 TAB PO (21:44)
[2023-08-06] MEDS: Tamsulosin 0.4 MG CAPCR PO (21:44)
[2023-08-06] MEDS: Finasteride 5 MG TAB PO (21:44)
[2023-08-06] MEDS: QUEtiapine 25 MG TAB PO (21:44)
[2023-08-06] MEDS: Latanoprost 0.005% 2.5 ML BTL OP (21:47)
[2023-08-06] MEDS: MORPHine 2 MG/ML SYR IVP (22:53)
[2023-08-06 23:38] VITALS: BP 153/79; PULSE 90; RESP 20; TEMP 36.5; O2SAT 94
[2023-08-07] MEDS: MORPHine 2 MG/ML SYR IVP ×3 (00:28→22:54)
[2023-08-07] MEDS: oxyCODONE 10 MG TAB PO ×3 (01:34→18:02)
[2023-08-07] MEDS: ceFAZolin 2 GM/50 ML BAG IVPB (02:32)
[2023-08-07 03:41] VITALS: BP 126/63; PULSE 83; RESP 16; TEMP 36.7; O2SAT 93
[2023-08-07] MEDS: Acetaminophen 325 MG TAB 650 MG PO ×2 (04:49→19:39)
[2023-08-07] MEDS: Tiotropium Bromide-Respimat 10 PUFF INH 2 PUFF IH (08:33)
[2023-08-07] MEDS: Budesonide/Formoterol 80/4.5 6.9 GM 60 PUFF INH IH ×2 (08:34→19:13)
[2023-08-07 08:55] VITALS: BP 103/89; PULSE 89; RESP 16; TEMP 37.1; O2SAT 92
[2023-08-07] MEDS: Normal Saline Flush 10 ML SYR IVP ×2 (08:58→19:41)
[2023-08-07] MEDS: Nystatin CREAM 30 GM TUBE TP ×2 (08:58→19:41)
[2023-08-07] MEDS: Triamcinolone 0.1% CR 15 GM TUBE TP (08:59)
[2023-08-07] MEDS: Insulin Aspart 300 UNITS/3 ML PEN SC ×2 (09:00→20:37)
[2023-08-07] MEDS: Potassium Chloride 10 MEQ CAPCR 20 MEQ PO (09:00)
[2023-08-07] MEDS: Diclofenac 1% Gel 100 GM TUBE TP ×2 (09:00→19:40)
[2023-08-07] MEDS: Famotidine 20 MG TAB PO (09:01)
[2023-08-07] MEDS: Cholecalciferol (Vitamin D3) 1,000 UNIT TAB 1000 UNITS PO (09:01)
[2023-08-07] MEDS: Folic Acid 1 MG TAB PO (09:01)
[2023-08-07] MEDS: Gabapentin 600 MG TAB PO ×4 (09:02→19:40)
[2023-08-07] MEDS: Spironolactone 25 MG TAB PO (09:02)
[2023-08-07] MEDS: Docusate Sodium 100 MG CAP PO ×3 (09:02→19:40)
[2023-08-07] MEDS: Furosemide 40 MG/4 ML VIAL IVP (09:03)
--- NOTE | 2023-08-07 09:03 | PGE_ITS ---
Date of Service Date of service: 08/07/23 Time of Service: 09:03 Assessment and Plan Assessment and plan (1) Acute CHF: Status: Acute Assessment and plan: HFPEF, LVEF 65% w/ no RWMA; normal sized LV and normal size and probably normal RV function as well but now w/ worsening MR and TR, RVSP 48 mm patient diuresing well. I/O yesterday was net negative 2780 mL yesterday, wt not done yet labs not done this moring, I have reordered them At this point will change to po lasix and continue spironolactone, add Jardiance; will resume low dose losartan tomorrow w/ holding parameters for his BP (2) Cellulitis of lower extremity: Status: Acute Assessment and plan: continue Ancef; monitor response, change to po keflex upon discharge from hospital (3) GARO (acute kidney injury): Status: Acute Assessment and plan: With evidence of urinary retention by bladder scan. renal US demonstrated distended urinary bladder w/out hydronephrosis. s/p caban placement by Dr. Mccullough on Sunday. BUN and creatinine continue to improve. 17 and 1.3 yesterday; repeating labs this morning. (4) Scrotal edema: Status: Acute Assessment and plan: scrotal edema has improved w/ diuresing and overall improved CHF (5) Chronic anemia: Status: Acute Assessment and plan: anemia studies c/w iron deficiency,patient has completed course of venofer. upon discharge he ough to have repeat CBC in 2 weeks, repeat iorn studies in 6 weeks (6) Bronchiectasis: Status: Chronic Assessment and plan: Continue home therapy RT consult Spiriva and Symbicort ordered in place of his Trelegy. I changed his DuoNeb to q4h prn. (7) Constipation: Status: Acute Assessment and plan: improved w/ enema and dulcolax along w/ Relistor; continue w/ stool softeners and schedule Miralax (8) Diabetes mellitus: Status: Chronic Assessment and plan: carb consistent diet. Inuslin per sliding scale; glucose running 115 to 189, A1C 6.6%, add Jardiance for multiple reasons: CHF, CKD as well as DM (9) Decubital ulcer: Status: Acute Assessment and plan: L buttock, present on admission. Patient states that he has not been ambulatory since return from [facility]. He states he spent most of his time in bed. He does not have home health currently. Wound care and PT are consulted. Patient needs continued P.T. treatment to improve his mobility (10) Discharge planning issues: Status: Acute Assessment and plan: DNR/DNI I anticipate he will need either SNF or aggressive home health w/ P.T. and O.T. as well as nursing and SORTING MACHINE ATTENDANT. his is adamant against him going to [facility], she would prefer home health services. (11) DVT prophylaxis: Status: Acute Assessment and plan: SC heparin; consider grind operator anticoagulation Subjective Subjective Interval history since last seen: Patient states that his breathing if fine. Much improved. Still w/ some joint pains, hips, knees (particularly right), but gets some relief w/ voltaren and tylenol. Exam Narrative Exam Narrative: Ray is alert, talkative, no acute distress, able to speak on full paragraphs w/out dyspnea Lungs: clear anteriorly but w/ some diminished breath sounds at the bases Heart: irregularly irregular but controlled rate, soft systolic murmur over apex c/w MR Abdomen: soft, nontender Legs/feet: edema has decreased dramatically, now 1+; still has erythema of his legs and some drainage from blisters Objective Last Vital Signs Temp 37.1 C 08/07/23 08:55 Pulse 89 08/07/23 08:55 Resp 16 08/07/23 08:55 BP 103/89 08/07/23 08:55 Pulse Ox 92 08/07/23 08:55 Laboratory Results - last 24 hr 08/06/23 08/06/23 08/06/23 11:05 11:05 11:05 WBC 7.01 RBC 3.31 L Hgb 8.4 L Hct 27.0 L MCV 82 MCH 25.4 L MCHC 31.1 L RDW 18.3 H Plt Count 314 MPV 11.0 Immature Gran % 0.4 Neutrophils % 64.1 Lymphocytes % 16.4 Monocytes % 12.7 Eosinophils % 5.7 Basophils % 0.7 Nucleated RBC % 0.0 Absolute Neutrophils 4.49 Absolute Lymphocytes 1.15 L Absolute Monocytes 0.89 H Absolute Eosinophils 0.40 Absolute Basophils 0.05 Sodium 135 L Potassium 4.2 Chloride 98 Carbon Dioxide 32.1 H Anion Gap 4.9 BUN 17 Creatinine 1.3 Est GFR (CKD-EPI 2020) 53.50 Glucose 148 H Calcium 9.2 C-Reactive Protein 2.85 H NT-Pro-B Natriuret Pep 6285 H Time Spent with Patient Time Spent with Patient: 35-49 minutes Time was spent: preparing to see the patient(eg.review tests), ordering medications,tests, procedures, referring, communicating with other health director of healthcare systems, indepentently interpreting results, counseling the patient and care coordination
--- NOTE | 2023-08-07 09:30 | RT.EKG_ITS ---
APPROVED REPORT Exam: Resting ECG Reason for Exam: CHF, ?atrial fib Patient Location: I HR:81 bpm ECG Measurements Heart Rate 81 AXIS MO [id number] P [id number] QRSd 145 QRS 83 QT 421 T -18 QTc 489 Conclusion Atrial fibrillation...V-rate 74- 85, irreg A-activity Ventricular premature complex...V complex w/ short R-R interval Right bundle branch block...QRSd>120, terminal axis(90,270)
--- NOTE | 2023-08-07 09:31 | CMPROGNOTE_ITS ---
Date of service: 08/07/23 Time of Service: 09:31 Care Management Progress Note Progress Note Text Progress Note Text: S/O: Phoenix was lying in bed when CM met with him. He stated that he is really tired today. When asked if he slept well last night he indicated that no one sleeps well in the hospital. Phoenix also talked a bit about his Shawna. He informed CM that Shawna is 82 and is beginning to have memory issues. He shared that at times she feels that she is being left out of conversations and decisions. He encouraged CM to reach out to Aydee with any needed updates or decisions that may be needed. Phoenix expressed concerns about his ability to function independently at home. He reported feeling weak and a bit unsteady and was not sure he could manage. CM asked about short term rehab. Phoenix stated that he would be agreeable if it is recommended and asked that CM discuss it with his daughter Wendi Marshall and Shawna. The original recommendation from PT was for home health PT, however Phoenix has not progressed as quickly as anticipated and would likely benefit from short term rehab. A: 88 year old male admitted to [facility] 08/03/23 with acute CHF w/pleural effusion, GARO, anemia P: Phoenix has not progressed as quickly as anticipated with PT and would likely be nefit from short term rehab. CM discussed this with Phoenix who tentatively agreed but asked that CM discuss it with his . CM spoke with Shawna, his , at length and the decision was made to see how Phoenix progresses in the next couple of days. referrals will be sent at that time if needed. CM will continue to support Phoenix and assess for discharge needs. ?
[2023-08-07 10:28] LABS: Abs Immature Grans 0.02 10^3/uL (0.0-0.06); Absolute Basophil Count 0.04 10^3/uL (0.0-0.2); Absolute Eosinophil Count 0.38 10^3/uL (0.0-0.7); Absolute Monocyte Count 1.05 10^3/uL (0.1-0.8); Absolute Neutrophil Count 5.29 10^3/uL (1.2-6.7); Basophils % 0.5; Eosinophils % 4.9; HCT 27.5 % (40.0-50.0); HGB 8.5 g/dL (13.5-17.5); Immature Grans % 0.3; Lymphocytes % 11.7; MCH 25.3 pg (27.0-33.0); MCHC 30.9 % (32.0-36.0); MCV 82 fL (80-95); MPV 11.5 fL (8.0-11.0); Monocytes % 13.7; Neutrophils % 68.9; Nucleated RBC 0.3 % (0.0-0.3); Platelet Count 268 10^3/uL (130-400); RBC 3.36 10^6/uL (4.36-5.78); RDW 18.8 % (11.8-14.1); RDW-SD 54.9 fL; WBC 7.68 10^3/uL (4.4-10.8)
[2023-08-07] MEDS: Empaglifozin 10 MG TAB PO (10:44)
[2023-08-07] MEDS: Linezolid 600 MG TAB PO ×2 (10:44→20:36)
[2023-08-07 10:50] LABS: BUN 15 mg/dL (7-18); CREATININE 1.1 mg/dL (0.70-1.30); Calcium 9.5 mg/dL (8.5-10.1); Chloride 98 mmol/L (98-107); Estimated GFR 65.38 (mL/min/1.73m2); Glucose 114 mg/dL (74-106); NT-proBNP 7947 pg/mL (<300); Potassium 4.5 mmol/L (3.5-5.1); Sodium 137 mmol/L (136-145)
--- NOTE | 2023-08-07 11:10 | PTTR_ITS ---
Date of service: 08/07/23 Time of Service: 10:48 PT Notes Visit Reasons: Acute CHF w/Pleural Effusion,GARO,Anemia Inpatient Physical Therapy Treatment Note [facility] Date: 08/07/23 PRECAUTIONS: Fall, standard, activity as tolerated SUBJECTIVE: Patient reports hating therapy. AFTERNOON: Patient grumps about having therapy again. Asks how many times he is going to be required to move. Appears to be at least half joking. OBJECTIVE: Sitting up in recliner with legs elevated. visiting. Agreeable to therapy despite hating it. Receiving 2L/min supplemental O2 via nasal cannula. Garcia catheter in place, which this therapist empties as it is heavy. 1350 mL removed from bag. This is reported to INDUSTRIAL MAINTENANCE TECHNICIAN Mac and CELLULAR PLASTICS CUTTER for documentation. [place] alarm active. AFTERNOON: Patient still on 2L/min O2 via nasal cannula, Garcia in place. Agreeable to therapy. ?[place] alarm active ? PAIN: Yes, reports multiple irritations, including where they tied up patient's scrotum. Pain much improved from yesterday. AFTERNOON: no pain reported. VITALS: monitored by nursing staff. ? Therapeutic Activities (46735a7): Direct one-on-one instruction in dynamic activities to improve functional performance. ? BED MOBILITY/TRANSFERS? Rolling L/R: not assessed Supine-sit: Not assessed. AFTERNOON: SBA ? Sit-supine: Not assessed. ?AFTERNOON: SBA ? Sit-stand: CGA? AFTERNOON: SBA? Stand-sit: CGA AFTERNOON: SBA? Bed-Chair: CGA AFTERNOON: SBA? Chair-bed: CGA AFTERNOON: SBA Patient reports a desire to be able to move about independently within his room. Afternoon session spend practicing walking SBA with FWW, being mindful of Garcia and O2 tubing, transferring bed to chair, chair to bed, getting in and out of bed to promote safety awareness, safe transfer techniques. Provided skilled cues and instruction on performance and technique throughout. ? Therapeutic Exercises ([id number]): Direct one-on-one instruction in therapeutic exercises to develop strength, endurance, range of motion and flexibility. ? Exercises: * Sit to stand x5 ?Ambulation ? Assistive Device: FWW? Weight bearing: full Assist: CGA ? Distance:? 75 feet, seated rest, 75 feet ?AFTERNOON: multiple short distances, corners. ? Deviation: extremely wide YUDY, shortened step length. Patient becomes mildly short of breath with exertion, but recovers quickly. AFTERNOON: emphasis on situational and environmental awareness for safety. ? Provided skilled instruction in proper exercise performance Provided skilled manual cues to facilitate proper muscle recruitment and/or form. ASSESSMENT:? Patient tolerates therapy well and verbally agrees to therapy again this afternoon. AFTERNOON: Patient tolerates therapy well, closes session stating If I were at home, I wouldn't push myself so hard, I would rest and catch my breath so I can move safely. So why am I going to push myself now? I think we're finished for today. PLAN: Continue global strengthening per plan of care until patient is medically cleared for discharge. TREATMENT CODE/TIME: 22 minutes beginning at 10:48 and 33 minutes beginning at 12:59 for a total of 55 minutes today.
[2023-08-07 15:58] VITALS: BP 126/64; PULSE 77; RESP 16; TEMP 37; O2SAT 96
[2023-08-07] MEDS: Furosemide 40 MG TAB PO (16:01)
[2023-08-07] MEDS: diazePAM 2 MG TAB PO (19:39)
[2023-08-07] MEDS: Melatonin 3 MG TAB PO (19:40)
[2023-08-07] MEDS: QUEtiapine 25 MG TAB PO (20:37)
[2023-08-07] MEDS: Senna TAB 1 TAB PO (20:37)
[2023-08-07] MEDS: Tamsulosin 0.4 MG CAPCR PO (20:37)
[2023-08-07] MEDS: Latanoprost 0.005% 2.5 ML BTL OP (20:37)
[2023-08-07] MEDS: Finasteride 5 MG TAB PO (20:37)
[2023-08-07] MEDS: Heparin 5,000 UNITS/ML VIAL 5000 UNITS SC (20:38)
[2023-08-07 23:13] VITALS: BP 119/62; PULSE 86; RESP 18; TEMP 36.9; O2SAT 93
[2023-08-08] MEDS: oxyCODONE 10 MG TAB PO ×3 (00:11→21:14)
[2023-08-08] MEDS: Acetaminophen 325 MG TAB 650 MG PO ×2 (00:11→11:35)
[2023-08-08] MEDS: Heparin 5,000 UNITS/ML VIAL 5000 UNITS SC ×3 (06:17→21:15)
[2023-08-08 07:19] LABS: Abs Immature Grans 0.02 10^3/uL (0.0-0.06); Absolute Basophil Count 0.04 10^3/uL (0.0-0.2); Absolute Eosinophil Count 0.51 10^3/uL (0.0-0.7); Absolute Lymphocyte Count 1.32 10^3/uL (1.2-3.4); Absolute Monocyte Count 0.89 10^3/uL (0.1-0.8); Absolute Neutrophil Count 3.32 10^3/uL (1.2-6.7); Basophils % 0.7; Eosinophils % 8.4; Immature Grans % 0.3; Lymphocytes % 21.6; MCH 25.2 pg (27.0-33.0); MCHC 30.8 % (32.0-36.0); MCV 82 fL (80-95); MPV 11.4 fL (8.0-11.0); Monocytes % 14.6; Neutrophils % 54.4; Platelet Count 307 10^3/uL (130-400); RBC 3.18 10^6/uL (4.36-5.78); RDW 19.4 % (11.8-14.1); RDW-SD 55.8 fL
[2023-08-08 07:34] LABS: Anion Gap 4.3 mmol/L (3-11); BUN 16 mg/dL (7-18); CO2 33.7 mmol/L (21.0-32.0); CREATININE 1.3 mg/dL (0.70-1.30); Calcium 9.1 mg/dL (8.5-10.1); Chloride 99 mmol/L (98-107); Glucose 100 mg/dL (74-106); Potassium 4.2 mmol/L (3.5-5.1); Sodium 137 mmol/L (136-145)
[2023-08-08 07:37] LABS: C-Reactive Protein 4.79 mg/dL (0.0-0.3)
[2023-08-08 07:50] VITALS: BP 121/69; PULSE 78; RESP 18; TEMP 36.5; O2SAT 91
[2023-08-08] MEDS: Spironolactone 25 MG TAB PO (08:20)
[2023-08-08] MEDS: Linezolid 600 MG TAB PO ×2 (08:21→21:15)
[2023-08-08] MEDS: Empaglifozin 10 MG TAB PO (08:21)
[2023-08-08] MEDS: Famotidine 20 MG TAB PO (08:21)
[2023-08-08] MEDS: Losartan 50 MG TAB PO (08:22)
[2023-08-08] MEDS: Docusate Sodium 100 MG CAP PO ×3 (08:22→21:13)
[2023-08-08] MEDS: Cholecalciferol (Vitamin D3) 1,000 UNIT TAB 1000 UNITS PO (08:22)
[2023-08-08] MEDS: Furosemide 40 MG TAB PO ×2 (08:23→16:43)
[2023-08-08] MEDS: Gabapentin 600 MG TAB PO ×4 (08:23→21:15)
[2023-08-08] MEDS: Normal Saline Flush 10 ML SYR IVP (08:24)
[2023-08-08] MEDS: Folic Acid 1 MG TAB PO (08:24)
[2023-08-08] MEDS: Diclofenac 1% Gel 100 GM TUBE TP ×2 (08:47→21:25)
[2023-08-08] MEDS: Triamcinolone 0.1% CR 15 GM TUBE TP (08:47)
[2023-08-08] MEDS: Nystatin CREAM 30 GM TUBE TP (08:47)
[2023-08-08] MEDS: Budesonide/Formoterol 80/4.5 6.9 GM 60 PUFF INH IH ×2 (08:50→19:13)
[2023-08-08] MEDS: Tiotropium Bromide-Respimat 10 PUFF INH 2 PUFF IH (08:50)
--- NOTE | 2023-08-08 10:48 | CMPROGNOTE_ITS ---
Date of service: 08/08/23 Time of Service: 10:48 Care Management Progress Note Progress Note Text Progress Note Text: S/O: Phoenix was sitting up in a jacinto when CM met with him. He stated that he had a good day and did well with PT. Phoenix informed CM that although he is improving, he still feels he would do better if he could go to rehab for a week or two. CM explained that [facility] does not have any male beds and that they do not expect any for a couple of weeks. CM asked if he would consider any other facilities. His was pretty clear yesterday that she did not want to have to travel far and was only considering the [facility]. Phoenix stated that both [facility] and [facility] were acceptable to him and asked CM to call Aydee, his , and discuss again with her. CM called Aydee and after a brief discussion, she agreed to sending referrals to [facility] and [facility] but expressed a strong preference for [facility]. Referrals will be sent in the morning. A: 88 year old male admitted to [facility] 08/03/23 with acute CHF w/pleural effusion, GARO, anemia P: Phoenix has not progressed as quickly as anticipated with PT and would likely benefit from short term rehab. A referral was sent to [facility] however they have no male beds. CM discussed this with Phoenix and his Aydee who agreed to have referrals sent to [facility] and [facility]. If neither has bed availability, he will be discharged home with full home health services for PT,OT, RN and ONLINE COMMUNITY MANAGER. CM will continue to support Phoenix and his discharge needs. ?
--- NOTE | 2023-08-08 10:55 | W.PM.PROGNOT ---
Date of Service Date of service: 08/08/23 Time of Service: 10:56 Assessment and Plan Assessment and plan (1) Acute CHF: Status: Acute Assessment and plan: HFPEF, LVEF 65% w/ no RWMA; normal sized LV and normal size and probably normal RV function as well but now w/ worsening MR and TR, RVSP 48 mm patient diuresing well. I/O yesterday was net negative 6450 mL yesterday, but I think this was inaccurate as they only listed 50 mL of intak. Wt 102.1 kg, markedly down from his admission wt of 111.1 kg continue oral lasix, spironolactone, losartan resumed at reduced dose of 50 mg daily. BUN and creatinine stable at 16 and 1.3, electrolytes are ok. K+ 4.2 (2) Cellulitis of lower extremity: Status: Acute Assessment and plan: I changed his antibiotics to Zyvox yesterday d/t Staph aureus growth from one of his blisters. It was MSSA but he was not improving on Ancef. He has improved considerably in last 24 hr. (3) GARO (acute kidney injury): Status: Acute Assessment and plan: With evidence of urinary retention by bladder scan. renal US demonstrated distended urinary bladder w/out hydronephrosis. s/p caban placement by Dr. Mccullough on Sunday. I will dc hime to SNF or home w/ caban in place and have patient follow up w/ Dr. Mccullough as outpatient for spontaneous voiding trial in the office. (4) Scrotal edema: Status: Acute Assessment and plan: scrotal edema has resolved. (5) Chronic anemia: Status: Acute Assessment and plan: anemia studies c/w iron deficiency,patient has completed course of venofer. upon discharge he ough to have repeat CBC in 2 weeks, repeat iorn studies in 6 weeks (6) Bronchiectasis: Status: Chronic Assessment and plan: Continue home therapy RT consult Spiriva and Symbicort ordered in place of his Trelegy. I changed his DuoNeb to q4h prn. (7) Constipation: Status: Acute Assessment and plan: improved w/ enema and dulcolax along w/ Relistor; continue w/ stool softeners and schedule Miralax (8) Diabetes mellitus: Status: Chronic Assessment and plan: carb consistent diet. Inuslin per sliding scale; glucose running 115 to 189, A1C 6.6%, add Jardiance for multiple reasons: CHF, CKD as well as DM (9) Decubital ulcer: Status: Acute Assessment and plan: L buttock, present on admission. Patient states that he has not been ambulatory since return from [facility]. He states he spent most of his time in bed. He does not have home health currently. Wound care and PT are consulted. Patient needs continued P.T. treatment to improve his mobility (10) Discharge planning issues: Status: Acute Assessment and plan: DNR/DNI I think he would benefit from short term SNF if he and his are willing. The patient is willing as long as it is not [facility]. Patient's who is a nurse says that he had horrible care there. (11) DVT prophylaxis: Status: Acute Assessment and plan: SC heparin; consider longwall machine operator helper anticoagulation Subjective Subjective Interval history since last seen: Patient complaining of joint pains, legs aching but breathing is improved. Not dyspneic w/ conversation Exam Narrative Exam Narrative: Ray is sitting up in his chair watching TV. No acute distress other than his leg pains. Lungs: clear anteriorly Heart: regular today, soft systolic murmur at apex; no thrill or heave or gallop Abdomen: nondistended, soft, nontender Legs: erythema has markedly improved and edema is gone. He has mepilex bandages over right and left lower legs at sites of open blisters. I did not take them down to look at them but did remove his TRENT wraps to get good look at the skin and there erythema has resolved. Objective Last Vital Signs Temp 36.5 C 08/08/23 07:50 Pulse 78 08/08/23 07:50 Resp 18 08/08/23 07:50 BP 121/69 08/08/23 07:50 Pulse Ox 91 L 08/08/23 07:50 Laboratory Results - last 24 hr 08/08/23 08/08/23 08/08/23 05:35 06:20 06:20 WBC 6.10 RBC 3.18 L Hgb 8.0 L Hct 26.0 L MCV 82 MCH 25.2 L MCHC 30.8 L RDW 19.4 H Plt Count 307 MPV 11.4 H Immature Gran % 0.3 Neutrophils % 54.4 Lymphocytes % 21.6 Monocytes % 14.6 Eosinophils % 8.4 Basophils % 0.7 Nucleated RBC % 0.0 Absolute Neutrophils 3.32 Absolute Lymphocytes 1.32 Absolute Monocytes 0.89 H Absolute Eosinophils 0.51 Absolute Basophils 0.04 Sodium 137 Potassium 4.2 Chloride 99 Carbon Dioxide 33.7 H Anion Gap 4.3 BUN 16 Creatinine 1.3 Est GFR (CKD-EPI 2020) 53.50 Glucose 100 Calcium 9.1 C-Reactive Protein 4.79 H Time Spent with Patient Time Spent with Patient: 35-49 minutes Time was spent: preparing to see the patient(eg.review tests), referring, communicating with other health manager critical care, indepentently interpreting results, counseling the patient and care coordination
[2023-08-08 11:01] VITALS: O2SAT 94
[2023-08-08] MEDS: diazePAM 2 MG TAB PO ×2 (11:36→21:14)
--- NOTE | 2023-08-08 14:29 | PT.INTREAT ---
Date of service: 08/08/23 Time of Service: 14:04 PT Notes Visit Reasons: Acute CHF w/Pleural Effusion,GARO,Anemia Inpatient Physical Therapy Treatment Note [facility] Date: 08/08/23 PRECAUTIONS: Fall, standard, activity as tolerated SUBJECTIVE: morning hold per CAREN Bellamy - patient in too much pain to participate. Afternoon: Patient reports not being excited to go across the street to SNF. Reports his was in that facility and did not have a good experience. OBJECTIVE: Sitting up in recliner, agreeable to therapy. Garcia in place. IV access in place. Nasal cannula on patient, no supplemental O2 flowing. ? PAIN: none reported VITALS: ? Pre-Treatment: SaO2 94%, HR 74 bpm ? Post-Treatment: SaO2 92%, HR 110 bpm? BED MOBILITY/TRANSFERS? Rolling L/R: Not assessed Supine-sit: not assessed? Sit-supine: not assessed ? Sit-stand: SBA? Stand-sit: SBA ? Bed-Chair: CGA? Chair-bed: CGA ? Therapeutic Exercises ([id number]): Direct one-on-one instruction in therapeutic exercises to develop strength, endurance, range of motion and flexibility. ?Ambulation ? Assistive Device: FWW? Weight bearing: full Assist: CGA, wheelchair follow? Distance:? 75 feet, seated rest, 145 feet ? Deviation: wide YUDY, reduced stride length. Trunk lurch noted towards right side. Patient reports feeling very short of breath, but SaO2 remains >90% for whole duration of therapy session. ? Provided skilled instruction in proper exercise performance Provided skilled manual cues to facilitate proper muscle recruitment and/or form. ASSESSMENT:? Patient tolerates therapy well, despite feeling short of breath with exertion. No report of increased pain. Demeanor improved today over previous days. Repeatedly mentions that he is not thrilled at the idea of going across the street, and once states that the other option is to go home and he doesn't think he's there yet. States that he appreciates the quality of care he is receiving here. This therapist explains that without need of medical services, he would not be able to stay in the hospital - that he can't just stay for therapy. Patient verbalizes understanding. PLAN: Continue global strengthening per plan of care until patient is medically cleared for discharge. TREATMENT CODE/TIME: 24 minutes beginning at 14:04
[2023-08-08 15:14] VITALS: BP 119/57; PULSE 71; RESP 20; TEMP 36.7; O2SAT 90
[2023-08-08] MEDS: Insulin Aspart 300 UNITS/3 ML PEN SC (16:43)
[2023-08-08] MEDS: Senna TAB 1 TAB PO (21:13)
[2023-08-08] MEDS: Finasteride 5 MG TAB PO (21:14)
[2023-08-08] MEDS: QUEtiapine 25 MG TAB PO (21:15)
[2023-08-08] MEDS: Tamsulosin 0.4 MG CAPCR PO (21:15)
[2023-08-08] MEDS: Melatonin 3 MG TAB PO (21:15)
[2023-08-08] MEDS: Latanoprost 0.005% 2.5 ML BTL OP (21:26)
[2023-08-08] MEDS: MORPHine 2 MG/ML SYR IVP ×2 (22:39→23:54)
[2023-08-08 23:13] VITALS: BP 129/64; PULSE 84; RESP 20; TEMP 37.2; O2SAT 93
[2023-08-09] VITALS (7 sets, daily range): BP systolic 95–112; BP diastolic 47–63; PULSE 81–85; RESP 5–20; TEMP 36.3–37.1; O2SAT 86–97
[2023-08-09] MEDS: MORPHine 2 MG/ML SYR IVP (02:52)
[2023-08-09] MEDS: Heparin 5,000 UNITS/ML VIAL 5000 UNITS SC ×3 (06:00→19:53)
[2023-08-09] MEDS: Empaglifozin 10 MG TAB PO (08:24)
[2023-08-09] MEDS: Docusate Sodium 100 MG CAP PO ×2 (08:24→13:16)
[2023-08-09] MEDS: Folic Acid 1 MG TAB PO (08:24)
[2023-08-09] MEDS: Cholecalciferol (Vitamin D3) 1,000 UNIT TAB 1000 UNITS PO (08:24)
[2023-08-09] MEDS: Famotidine 20 MG TAB PO (08:24)
[2023-08-09] MEDS: Diclofenac 1% Gel 100 GM TUBE TP ×2 (08:24→19:54)
[2023-08-09] MEDS: Furosemide 40 MG TAB PO ×2 (08:25→16:02)
[2023-08-09] MEDS: Losartan 50 MG TAB PO (08:25)
[2023-08-09] MEDS: Linezolid 600 MG TAB PO ×2 (08:25→19:51)
[2023-08-09] MEDS: Nystatin CREAM 30 GM TUBE TP ×2 (08:25→19:52)
[2023-08-09] MEDS: Gabapentin 600 MG TAB PO ×4 (08:25→19:50)
[2023-08-09] MEDS: Spironolactone 25 MG TAB PO (08:26)
[2023-08-09] MEDS: Triamcinolone 0.1% CR 15 GM TUBE TP (08:26)
[2023-08-09] MEDS: Tiotropium Bromide-Respimat 10 PUFF INH 2 PUFF IH (09:10)
[2023-08-09] MEDS: Budesonide/Formoterol 80/4.5 6.9 GM 60 PUFF INH IH ×2 (09:10→19:13)
[2023-08-09] MEDS: Albuterol 2.5 MG/3 ML INH SOLN VIAL UPD ×2 (09:20→19:11)
[2023-08-09 10:34] LABS: Magnesium 2.1 mg/dL (1.8-2.4)
--- NOTE | 2023-08-09 10:35 | PT.INNT ---
Date of service: 08/09/23 Time of Service: 10:28 PT Notes Visit Reasons: Acute CHF w/Pleural Effusion,GARO,Anemia Patient refuses morning therapy because he has had a busy morning, it's been one person after another and not five minutes between them. Patient wants to lay low for the morning, agreeable to afternoon therapy. HARLEY Davis aware.
[2023-08-09] MEDS: oxyCODONE 10 MG TAB PO ×2 (10:41→19:51)
[2023-08-09 10:45] LABS: Anion Gap 5.2 mmol/L (3-11); BUN 18 mg/dL (7-18); CO2 33.8 mmol/L (21.0-32.0); CREATININE 1.3 mg/dL (0.70-1.30); Calcium 9.2 mg/dL (8.5-10.1); Chloride 100 mmol/L (98-107); Glucose 137 mg/dL (74-106); NT-proBNP 6895 pg/mL (<300); Potassium 3.9 mmol/L (3.5-5.1); Sodium 139 mmol/L (136-145)
[2023-08-09] MEDS: Polyethylene Glycol 3350 17 GM PACKET PO (13:17)
[2023-08-09] MEDS: Milk of Magnesia 30 ML CUP PO (13:17)
--- NOTE | 2023-08-09 14:53 | CMPROGNOTE_ITS ---
Documented by User: Susan Ellis 08/09/23 14:59 Date of service: 08/09/23 Time of Service: 14:53 Care Management Progress Note Progress Note Text Progress Note Text: Phoenix has not progressed as quickly as anticipated with PT and may benefit from short term rehab. A referral was sent to [facility] however they have no male beds. CM discussed this with Phoenix and his Aydee who agreed to have referrals sent to [place] and [facility]. Zahraa Mensah stated that they were unable to accept Phoenix's insurance as [facility] Managed Medicare denies services once patients enter SNF. Anticipate he will be discharged home with full home health services for PT,OT, RN and VEHICLE BODY SANDER. CM will continue to support Ray and his discharge needs. Documented by User: Nevin Suarez 08/21/24 17:46 Care Management Progress Note Progress Note Text Progress Note Text: Phoenix has not progressed as quickly as anticipated with PT and may benefit from short term rehab. A referral was sent to [facility] however they have no male beds. CM discussed this with Phoenix and his Aydee who agreed to have referrals sent to [place] and [facility]. Zahraa Mensah stated that they were unable to accept Phoenix's insurance as [facility] Managed Medicare denies services once patients enter SNF. Anticipate he will be discharged home with full home health services for PT,OT, RN and VEHICLE BODY SANDER. CM will continue to support Ray and his discharge needs. The author of this record is unavailable to sign this entry for which they were the author.? This is being signed in an administrative capacity to close the note.
--- NOTE | 2023-08-09 14:56 | PT.INTREAT ---
PT Notes Visit Reasons: Acute CHF w/Pleural Effusion,GARO,Anemia Inpatient Physical Therapy Treatment Note [facility] ?Date: 08/09/23 ?PRECAUTIONS: Fall, standard, activity as tolerated. ?SUBJECTIVE: Patient reports feeling not great, states that he has not had a moment's rest since he came to the hospital, there's always someone coming or going. ?OBJECTIVE: Sitting up in chair, agreeable to therapy. On 1.5 L/m supplemental O2 via nasal cannula. Is unable to don his own brief. States his legs dont go that high and reports he has a bad back.?PAIN: yes, reports feeling as though he pulled something in his back. Also reports soreness in bilateral thighs about 3/4 through ambulation. ?VITALS: monitored by nursing staff ? ? ?BED MOBILITY/TRANSFERS? Rolling L/R: not assessed Supine-sit: not assessed ? Sit-supine: not assessed ? Sit-stand: SBA ? Stand-sit: SBA ? Bed-Chair: SBA ? Chair-bed: SBA ?Therapeutic Exercises ([id number]): Direct one-on-one instruction in therapeutic exercises to develop strength, endurance, range of motion and flexibility. ?Ambulation ?Assistive Device: FWW ?Weight bearing: full ?Assist: wheelchair follow?Distance:? 125 feet, seated rest, 75 feet?Deviation: Wide YUDY, stooped forward posture, bilateral knees lacking ~15-20 degrees of extension? Provided skilled instruction in proper exercise performance Provided skilled manual cues to facilitate proper muscle recruitment and/or form. ASSESSMENT:? Patient reports he is unable to go home at this time, as caring for him is too much for his who he reports is also unwell. Patient needs to be able to bathe and dress independently as well as have greater functional activity tolerance. PLAN: Continue global strengthening per plan of care until patient is medically cleared for discharge. TREATMENT CODE/TIME: 15 minutes beginning at 13:43
[2023-08-09] MEDS: Bisacodyl 10 MG SUPP PR (16:27)
[2023-08-09] MEDS: Methylnaltrexone 12 MG/0.6 ML VIAL 8 MG SC (16:37)
[2023-08-09] MEDS: QUEtiapine 25 MG TAB PO (19:50)
[2023-08-09] MEDS: diazePAM 2 MG TAB PO (19:50)
[2023-08-09] MEDS: Melatonin 3 MG TAB PO (19:51)
[2023-08-09] MEDS: Finasteride 5 MG TAB PO (19:51)
[2023-08-09] MEDS: Tamsulosin 0.4 MG CAPCR PO (19:52)
[2023-08-09] MEDS: Latanoprost 0.005% 2.5 ML BTL OP (19:53)
[2023-08-09] MEDS: Insulin Aspart 300 UNITS/3 ML PEN SC (22:10)
[2023-08-10] VITALS (8 sets, daily range): BP systolic 121–157; BP diastolic 63–77; PULSE 75–87; RESP 2–18; TEMP 35.9–36.9; O2SAT 91–97
[2023-08-10] MEDS: oxyCODONE 10 MG TAB PO ×4 (02:36→20:57)
[2023-08-10] MEDS: Heparin 5,000 UNITS/ML VIAL 5000 UNITS SC ×3 (06:11→20:57)
[2023-08-10 06:24] LABS: Abs Immature Grans 0.02 10^3/uL (0.0-0.06); Absolute Basophil Count 0.05 10^3/uL (0.0-0.2); Absolute Eosinophil Count 0.38 10^3/uL (0.0-0.7); Absolute Lymphocyte Count 1.67 10^3/uL (1.2-3.4); Absolute Monocyte Count 0.91 10^3/uL (0.1-0.8); Absolute Neutrophil Count 3.71 10^3/uL (1.2-6.7); Basophils % 0.7; Eosinophils % 5.6; HCT 29.2 % (40.0-50.0); Immature Grans % 0.3; Lymphocytes % 24.8; MCH 24.9 pg (27.0-33.0); MCHC 30.8 % (32.0-36.0); MCV 81 fL (80-95); MPV 10.4 fL (8.0-11.0); Monocytes % 13.5; Neutrophils % 55.1; Platelet Count 361 10^3/uL (130-400); RBC 3.61 10^6/uL (4.36-5.78); RDW 20.8 % (11.8-14.1); RDW-SD 55.8 fL; WBC 6.74 10^3/uL (4.4-10.8)
[2023-08-10 07:15] LABS: Anisocytosis 2+; Diff Comment RBC Morph Reviewed
--- NOTE | 2023-08-10 07:30 | W.PM.PROGNOT ---
Date of Service Date of service: 08/09/23 Time of Service: 16:00 Assessment and Plan Assessment and plan (1) Acute CHF: Status: Acute Assessment and plan: HFPEF, LVEF 65% w/ no RWMA; normal sized LV and normal size and probably normal RV function as well but now w/ worsening MR and TR, RVSP 48 mm patient diuresing well. I/O yesterday was net negative 2 liters yesterday, but I think this was inaccurate as they failed to record any of his intake. Wt 102.1 kg, markedly down from his admission wt of 111.1 kg continue oral lasix, spironolactone, losartan resumed at reduced dose of 50 mg daily. BUN and creatinine stable at 18 and 1.3, electrolytes are ok. K+ 3.9 (2) Cellulitis of lower extremity: Status: Acute Assessment and plan: I changed his antibiotics to Zyvox two days ago d/t Staph aureus growth from one of his blisters. It was MSSA but he was not improving on Ancef. He has improved considerably in last 48 hr. I would send him home on another 5 days for total of 7 days. (3) GARO (acute kidney injury): Status: Acute Assessment and plan: With evidence of urinary retention by bladder scan. renal US demonstrated distended urinary bladder w/out hydronephrosis. s/p caban placement by Dr. Mccullough on Sunday but has been successfully removed and he is voiding on his own. (4) Scrotal edema: Status: Acute Assessment and plan: scrotal edema has resolved. (5) Chronic anemia: Status: Acute Assessment and plan: anemia studies c/w iron deficiency,patient has completed course of venofer. upon discharge he ough to have repeat CBC in 2 weeks, repeat iorn studies in 6 weeks (6) Bronchiectasis: Status: Chronic Assessment and plan: Continue home therapy RT consult Spiriva and Symbicort ordered in place of his Trelegy. I changed his DuoNeb to q4h prn. Qualifiers: Bronchiectasis type: uncomplicated Qualified Code(s): J47.9 - Bronchiectasis, uncomplicated (7) Constipation: Status: Acute Assessment and plan: patient had been doing better w/ stool softeners but now is constipated again and Miralax Qualifiers: Constipation type: slow transit constipation Qualified Code(s): K59.01 - Slow transit constipation (8) Diabetes mellitus: Status: Chronic Assessment and plan: carb consistent diet. Inuslin per sliding scale; glucose running 115 to 189, A1C 6.6%, add Jardiance for multiple reasons: CHF, CKD as well as DM Qualifiers: Diabetes mellitus type: type 2 Diabetes mellitus intermediate insulin use: without keno terminal operator use Diabetes mellitus complication status: without complication Qualified Code(s): E11.9 - Type 2 diabetes mellitus without complications (9) Decubital ulcer: Status: Acute Assessment and plan: L buttock, present on admission. improving (10) Discharge planning issues: Status: Acute Assessment and plan: DNR/DNI patient to return home tomorrow w/ home health services including P.T., O.T. and nursing and CAMPUS RECRUITER. (11) DVT prophylaxis: Status: Acute Assessment and plan: SC heparin; consider intermediate anticoagulation Subjective Subjective Interval history since last seen: Patient had his caban removed this afternoon and passed his voiding trial however now says that he is constipated and feels distended this afternoon. I told him we would hold up his dc until tomorrow and give him an enema and suppository and Relistor. He has already had Miralax without success. Last BM was couple days ago. CM indicated that [facility] declined a bed for him. His is ok w/ bringing him home as long as he has home health services. Exam Narrative Exam Narrative: Elderly male who is sitting up in his chair, he is alert/oriented, he is in mild discomfort from abdominal distension Lungs: clear antriorly w/ prolonged expiratory phase, posteriorly some basilar rales, no rhonchi Heart: RRR, soft systolic murmur at apex; no thrill, heave or gallop Abdomen: obese, distended, firm but not hard, good bowel sounds, nontender to palpation legs: erythema has resolved, edema is resolved, mepilex over both tibia covering site of his open blisters Objective Last Vital Signs Temp 36.3 C L 08/10/23 06:03 Pulse 80 08/10/23 06:03 Resp 18 08/10/23 06:03 BP 132/70 08/10/23 06:03 Pulse Ox 91 L 08/10/23 01:23 Laboratory Results - last 24 hr 08/09/23 08/10/23 10:04 05:45 WBC 6.74 RBC 3.61 L Hgb 9.0 L Hct 29.2 L MCV 81 MCH 24.9 L MCHC 30.8 L RDW 20.8 H Plt Count 361 MPV 10.4 Immature Gran % 0.3 Neutrophils % 55.1 Lymphocytes % 24.8 Monocytes % 13.5 Eosinophils % 5.6 Basophils % 0.7 Nucleated RBC % 0.0 Absolute Neutrophils 3.71 Absolute Lymphocytes 1.67 Absolute Monocytes 0.91 H Absolute Eosinophils 0.38 Absolute Basophils 0.05 RBC Morphology See Below Anisocytosis 2+ Sodium 139 Potassium 3.9 Chloride 100 Carbon Dioxide 33.8 H Anion Gap 5.2 BUN 18 Creatinine 1.3 Est GFR (CKD-EPI 2020) 53.50 Glucose 137 H Calcium 9.2 Magnesium 2.1 NT-Pro-B Natriuret Pep 6895 H Time Spent with Patient Time Spent with Patient: 25-34 minutes Time was spent: preparing to see the patient(eg.review tests), ordering medications,tests, procedures, referring, communicating with other health healthcare recruiter, indepentently interpreting results, counseling the patient and care coordination
[2023-08-10] MEDS: Polyethylene Glycol 3350 17 GM PACKET PO (09:04)
[2023-08-10] MEDS: Furosemide 40 MG TAB PO ×2 (09:06→15:41)
[2023-08-10] MEDS: Linezolid 600 MG TAB PO ×2 (09:07→20:57)
[2023-08-10] MEDS: Spironolactone 25 MG TAB PO (09:07)
[2023-08-10] MEDS: Famotidine 20 MG TAB PO (09:07)
[2023-08-10] MEDS: Docusate Sodium 100 MG CAP PO ×2 (09:07→13:17)
[2023-08-10] MEDS: Folic Acid 1 MG TAB PO (09:07)
[2023-08-10] MEDS: Empaglifozin 10 MG TAB PO (09:07)
[2023-08-10] MEDS: Losartan 50 MG TAB PO (09:07)
[2023-08-10] MEDS: Gabapentin 600 MG TAB PO ×4 (09:07→20:57)
[2023-08-10] MEDS: Cholecalciferol (Vitamin D3) 1,000 UNIT TAB 1000 UNITS PO (09:07)
[2023-08-10] MEDS: Normal Saline Flush 10 ML SYR IVP (09:08)
[2023-08-10] MEDS: Triamcinolone 0.1% CR 15 GM TUBE TP (09:08)
[2023-08-10] MEDS: Diclofenac 1% Gel 100 GM TUBE TP ×2 (09:17→17:49)
[2023-08-10] MEDS: Albuterol 2.5 MG/3 ML INH SOLN VIAL UPD ×2 (09:24→19:13)
[2023-08-10] MEDS: Budesonide/Formoterol 80/4.5 6.9 GM 60 PUFF INH IH ×2 (09:24→19:15)
[2023-08-10] MEDS: Tiotropium Bromide-Respimat 10 PUFF INH 2 PUFF IH (09:24)
--- NOTE | 2023-08-10 09:31 | CMPROGNOTE_ITS ---
Date of service: 08/10/23 Time of Service: 09:31 Care Management Progress Note Progress Note Text Progress Note Text: S/O: Phoenix was sitting up in a jacinto when CM met with him. He was pleasant and engaged well with CM. CM informed him that he would likely be discharged home tomorrow with new home health services. Referrals were sent to several SNFs for short term rehab however all declined to offer a bed. Two of the facilities have no male beds and the third one does not accept his insurance. CM spoke with Aydee, his , and again explained the situation. Aydee stated that she is prepared to take him home as long as he can have PT at home. CM assured her that home health orders would be placed for nursing and PT and would likely commence on Sunday or Sunday. She was in agreement with the plan. A: 88 year old male admitted to [facility] 08/03/23 with acute CHF w/pleural effusion, GARO, anemia P: Phoenix has not progressed as quickly as anticipated with PT and would likely benefit from short term rehab. A referral was sent to [facility] however they have no male beds. CM discussed this with Phoenix and his Aydee who agreed to have referrals sent to [facility] and [facility]. If neither has bed availability, he will be discharged home with full home health services for PT,OT, RN and DRUGLESS DOCTOR. CM will continue to support Phoenix and his discharge needs. ?
[2023-08-10] MEDS: Acetaminophen 325 MG TAB 650 MG PO ×2 (12:06→17:50)
[2023-08-10] MEDS: rOPINIRole 0.5 MG TAB PO ×2 (12:06→20:57)
[2023-08-10] MEDS: diazePAM 2 MG TAB PO ×2 (13:16→18:16)
[2023-08-10] MEDS: Insulin Aspart 300 UNITS/3 ML PEN SC ×3 (13:24→21:02)
[2023-08-10] MEDS: Nystatin CREAM 30 GM TUBE TP (14:43)
[2023-08-10] MEDS: IRON SUCROSE COMPLEX 400 MG in Normal Saline 250 ML 100 MG IVPB (15:38)
--- NOTE | 2023-08-10 16:35 | PT.INNT ---
Date of service: 08/10/23 Time of Service: 11:28 PT Notes Visit Reasons: Acute CHF w/Pleural Effusion,GARO,Anemia Patient refused PT for the morning. Alerted patient that DPT Katie Miller will be in this afternoon for a progress note.
--- NOTE | 2023-08-10 19:52 | PGE_ITS ---
Date of Service Date of service: 08/10/23 Time of Service: 19:52 Assessment and Plan Assessment and plan (1) Acute CHF: Status: Acute Assessment and plan: HFPEF, LVEF 65% w/ no RWMA; normal sized LV and normal size and probably normal RV function as well but now w/ worsening MR and TR, RVSP 48 mm He has diuresed well: Wt 102.1 kg, markedly down from his admission wt of 111.1 kg continue oral lasix, spironolactone, losartan resumed at reduced dose of 50 mg daily. BUN and creatinine stable at 18 and 1.3, electrolytes are ok. K+ 3.9. Monitor. (2) Cellulitis of lower extremity: Status: Acute Assessment and plan: Continue Zyvox; Staph aureus growth from one of his blisters. It was MSSA but he was not improving on Ancef. Now improved. Planning 7-10 day course. (3) GARO (acute kidney injury): Status: Acute Assessment and plan: With evidence of urinary retention by bladder scan. renal US demonstrated distended urinary bladder w/out hydronephrosis. s/p caban placement by Dr. Mccullough on Sunday but has been successfully removed and he is voiding on his own. (4) Scrotal edema: Status: Acute Assessment and plan: scrotal edema has resolved. (5) Chronic anemia: Status: Acute Assessment and plan: anemia studies c/w iron deficiency,patient has completed course of venofer. upon discharge he ought to have repeat CBC in 2 weeks, repeat iorn studies in 6 weeks (6) Restless leg syndrome: Status: Acute Assessment and plan: LIkely secondary to iron deficiency. Iron infusions and Aranesp administered. Ropinerole initiated. (7) Bronchiectasis: Status: Chronic Assessment and plan: Continue home therapy RT consult Spiriva and Symbicort ordered in place of his Trelegy. I changed his DuoNeb to q4h prn. Qualifiers: Bronchiectasis type: uncomplicated Qualified Code(s): J47.9 - Bronchiectasis, uncomplicated (8) Constipation: Status: Acute Assessment and plan: patient had been doing better w/ stool softeners but now is constipated again . Cont miralax. Qualifiers: Constipation type: slow transit constipation Qualified Code(s): K59.01 - Slow transit constipation (9) Diabetes mellitus: Status: Chronic Assessment and plan: carb consistent diet. Inuslin per sliding scale; glucose running 115 to 189, A1C 6.6%, add Jardiance for multiple reasons: CHF, CKD as well as DM Qualifiers: Diabetes mellitus type: type 2 Diabetes mellitus long term care administrator insulin use: without senior living use Diabetes mellitus complication status: without complication Qualified Code(s): E11.9 - Type 2 diabetes mellitus without complications (10) Decubital ulcer: Status: Acute Assessment and plan: L buttock, present on admission. improving (11) Discharge planning issues: Status: Acute Assessment and plan: DNR/DNI patient to return home w/ home health services including P.T., O.T. and nursing and SAFETY PHYSICIAN. (12) DVT prophylaxis: Status: Acute Assessment and plan: SC heparin; consider senior living anticoagulation Subjective Subjective Patient reports: afebrile; denies diarrhea, nausea, vomiting or shortness of breath Interval history since last seen: C/O bilateral restless legs. Exam Narrative Exam Narrative: Gen: Elderly male who is sitting up in his chair, he is alert/oriented. Cooperative. Lungs: clear anteriorly, posteriorly some basilar rales, no rhonchi Heart: RRR, soft systolic murmur at apex Abdomen: obese, distended, firm but not hard, good bowel sounds, nontender to palpation legs: erythema of shins is mild. shins with shallow open blisters. No pitting edema. Objective Last Vital Signs Temp 35.9 C L 08/10/23 14:37 Pulse 87 08/10/23 19:32 Resp 18 08/10/23 19:32 BP 123/68 08/10/23 14:37 Pulse Ox 95 08/10/23 19:32 Laboratory Results - last 24 hr 08/10/23 05:45 WBC 6.74 RBC 3.61 L Hgb 9.0 L Hct 29.2 L MCV 81 MCH 24.9 L MCHC 30.8 L RDW 20.8 H Plt Count 361 MPV 10.4 Immature Gran % 0.3 Neutrophils % 55.1 Lymphocytes % 24.8 Monocytes % 13.5 Eosinophils % 5.6 Basophils % 0.7 Nucleated RBC % 0.0 Absolute Neutrophils 3.71 Absolute Lymphocytes 1.67 Absolute Monocytes 0.91 H Absolute Eosinophils 0.38 Absolute Basophils 0.05 RBC Morphology See Below Anisocytosis 2+ Time Spent with Patient Time Spent with Patient: 25-34 minutes Time was spent: preparing to see the patient(eg.review tests), obtaining and/or reviewing separately otained hiistory, ordering medications,tests, procedures, referring, communicating with other health healthcare technician, indepentently interpreting results, counseling the patient and care coordination
[2023-08-10] MEDS: QUEtiapine 25 MG TAB PO (20:57)
[2023-08-10] MEDS: Tamsulosin 0.4 MG CAPCR PO (20:57)
[2023-08-10] MEDS: Latanoprost 0.005% 2.5 ML BTL OP (21:02)
[2023-08-10] MEDS: Finasteride 5 MG TAB PO (21:07)
[2023-08-11] MEDS: oxyCODONE 10 MG TAB PO ×2 (04:13→11:44)
[2023-08-11 04:14] VITALS: BP 107/58; PULSE 83; RESP 18; TEMP 37.2; O2SAT 93
[2023-08-11] MEDS: Heparin 5,000 UNITS/ML VIAL 5000 UNITS SC (06:13)
[2023-08-11] MEDS: diazePAM 2 MG TAB PO (06:13)
[2023-08-11 07:23] LABS: Anion Gap 8.2 mmol/L (3-11); BUN 16 mg/dL (7-18); CO2 29.8 mmol/L (21.0-32.0); CREATININE 1.2 mg/dL (0.70-1.30); Calcium 9.3 mg/dL (8.5-10.1); Chloride 100 mmol/L (98-107); Estimated GFR 58.89 (mL/min/1.73m2); Glucose 92 mg/dL (74-106); Potassium 3.9 mmol/L (3.5-5.1); Sodium 138 mmol/L (136-145)
[2023-08-11 07:45] VITALS: BP 132/78; PULSE 83; RESP 18; TEMP 36.4; O2SAT 92
[2023-08-11] MEDS: Spironolactone 25 MG TAB PO (09:08)
[2023-08-11] MEDS: rOPINIRole 0.5 MG TAB PO (09:08)
[2023-08-11] MEDS: Polyethylene Glycol 3350 17 GM PACKET PO (09:08)
[2023-08-11] MEDS: Losartan 50 MG TAB PO (09:09)
[2023-08-11] MEDS: Linezolid 600 MG TAB PO (09:09)
[2023-08-11] MEDS: Cholecalciferol (Vitamin D3) 1,000 UNIT TAB 1000 UNITS PO (09:09)
[2023-08-11] MEDS: Furosemide 40 MG TAB PO (09:09)
[2023-08-11] MEDS: Famotidine 20 MG TAB PO (09:09)
[2023-08-11] MEDS: Docusate Sodium 100 MG CAP PO (09:09)
[2023-08-11] MEDS: Gabapentin 600 MG TAB PO ×2 (09:09→12:13)
[2023-08-11] MEDS: Folic Acid 1 MG TAB PO (09:10)
[2023-08-11] MEDS: Diclofenac 1% Gel 100 GM TUBE TP (09:10)
[2023-08-11] MEDS: Albuterol 2.5 MG/3 ML INH SOLN VIAL UPD (09:30)
[2023-08-11] MEDS: Budesonide/Formoterol 80/4.5 6.9 GM 60 PUFF INH IH (09:30)
[2023-08-11 09:31] VITALS: O2SAT 93
[2023-08-11] MEDS: Tiotropium Bromide-Respimat 10 PUFF INH 2 PUFF IH (09:31)
[2023-08-11 09:39] VITALS: PULSE 86
--- NOTE | 2023-08-11 10:40 | W.PM.DS.N ---
Date of service: 08/11/23 Time of Service: 10:40 DS: Diagnosis Discharge Diagnosis (1) Acute CHF: Status: Acute Asessment and Plan: HFpEF, LVEF 65% w/ no RWMA; normal sized LV and normal size and probably normal RV function as well but now w/ worsening MR and TR, RVSP 48 mm He has diuresed well: Wt 102.1 kg, markedly down from his admission wt of 111.1 kg continue oral lasix 40 mg daily , spironolactone, losartan resumed at reduced dose of 50 mg daily. BUN and creatinine stable at 18 and 1.3, electrolytes are ok. K+ 3.9. Low Na diet. (2) Cellulitis of lower extremity: Status: Acute Asessment and Plan: Resolving. Cont Zyvox for 3 more days. Elevate legs frequently above heart level to help avoid venous stasis. (3) GARO (acute kidney injury): Status: Acute Asessment and Plan: Resolved. (4) Chronic anemia: Status: Acute Asessment and Plan: Hgb 9 at time of discharge. His Fe was low at 14 with a % saturation of 4. Venofer infused. Monitor as outpt. (5) Restless leg syndrome: Status: Acute Asessment and Plan: Possibly secondary to low iron. Ropinorole was initiated and will d/c on 1mg QHS. (6) Bronchiectasis: Status: Chronic Asessment and Plan: Continue home regimen: Trelegy, albuterol, Duonebs, VibraPEP, Mucinex. (7) Constipation: Status: Acute Asessment and Plan: Continue miralax. (8) Diabetes mellitus: Status: Chronic Asessment and Plan: Diet, Jardiance. (9) Decubital ulcer: Status: Acute Asessment and Plan: Present on admission. Left buttock. Improving. (10) Discharge planning issues: Status: Acute Asessment and Plan: Home Health Nursing and PT. Discharge Plan Disposition Patient Disposition: Home W/Home Health Services Condition: Improving Discharge Details Reason For Visit: Acute CHF w/Pleural Effusion,GARO,Anemia Admit Date/Time: 08/03/23 10:54 Admit Provider: Yajaira Lockhart Attending Provider: Yajaira Lockhart Primary Care Provider: Yvonne Solorio [facility] Course Hospital Course: Mr Aguilar is an 88 year old male with PMHx of both restrictive lung disease and bronchiectasis, not on oxygen, as well as h/o NIDDM2, HTN, BPH, who was brought to [facility] ED today by ambulance for shortness of breath. On arrival to ER, per the ED provider, he was not as short of breath; however, he was found to be edematous in his LEs and scrotum. His CXR showed a small right pleural effusion and atelectasis vs infiltrate. His troponin I was initially 61, then 59 on recheck without evidence of acute ischemia. EKG showed low voltage and no acute ischemia. P waves could not be definitively seen, but there was no evidence of electrical alternans. POCUS echo done by the ER provider showed a low global EF and no pericardial effusion. He received a dose of furosemide 40 mg IV x 1 in the ED. He is not requiring oxygen. Hospitalist admission for workup and management of acute CHF was requested. Of note, the patient also has an elevated D-dimer. Venous doppler of BLEs was negative for DVT. His echocardiogram is still pending. He has an GARO with a Cr of 2.0, up from 0.8 in May of this year. A caban catheter could not be placed in the ED due to penile/scrotal edema. A post-void bladder scan revealed 364 ccs. Urology is consulted for caban catheter placement. The patient states that about a month and a half ago he was hospitalized for a long time at [facility] [facility] for a GI bleed, for which he required a laparatomy. He states ever since then he has had difficulty walking due to abdominal pain. The leg swelling started 1-2 weeks ago and the scrotal swelling started 3-4 days ago. He describes HINDS and palpitations on exertion, as well as PND. Denies CP, dizziness, SOB at rest, orthopnea, palpitations at rest, nausea, blood in stool, dysuria now (had some when the scrotal swelling first started).PCP f/u in 1 week. See Diagnosis F/U with PCP in 1 week Home Meds and New Rx's Prescriptions: New Jardiance 10 mg Tablet 10 mg PO QAM Qty: 30 0RF linezolid 600 mg Tablet 600 mg PO BID Qty: 7 0RF losartan 50 mg Tablet 50 mg PO DAILY Qty: 30 0RF spironolactone 25 mg Tablet 25 mg PO DAILY Qty: 30 0RF ropinirole 1 mg tablet 1 mg PO QHS Qty: 30 0RF Continued Linzess 290 mcg capsule 290 mcg PO DAILY PRN acetaminophen 500 MG tablet 1,000 mg PO Q4H PRN Patient Comments: Not on medication list melatonin 3 MG tablet 3 mg PO HS PRN Patient Comments: Not on medication list Rx Instructions: 03/04/17 Dr BASURTO [facility] diclofenac sodium [Voltaren] 100 GM gel 100 gm Topical BID MDD twice Qty: 1 2RF Patient Comments: Not on medication list naloxone [Narcan] 4 MG spray,non-aerosol 4 mg NS as directed 1 Days Qty: 2 0RF Rx Instructions: instill 1 spray into 1 nostril for opioid overdose-may repeat once in opposite nostril if no response sodium chloride 7 % solution for nebulization 4 ml inhalation BID Qty: 240 12RF Patient Comments: Not on medication list hydrochlorothiazide 25 mg tablet 25 mg PO DAILY oxycodone 10 MG tablet 10 mg PO QID PRN (Reason: Pain) tamsulosin 0.4 mg Capsule 0.4 mg PO HS albuterol sulfate 2.5 mg /3 mL (0.083 %) Solution For Nebulization 2.5 mg Inhalation Q6H PRN polyethylene glycol 3350 17 gram/dose powder 17 g PO DAILY PRN (Reason: Constipation) Patient Comments: TAKE 17G ONE CAPFUL BY MOUTH MIXED IN 8OZ OF LIQUID AND DRINK ONCE DAILY NEEDED albuterol sulfate [ProAir HFA] 90 mcg/actuation HFA aerosol inhaler 2 inh INHALATION Q4H PRN Patient Comments: INHALE TWO PUFFS BY MOUTH EVERY 4 TO 6 HOURS NEEDED ondansetron 4 mg Tablet,Disintegrating 4 mg PO TID PRN Patient Comments: Not on medication list triamcinolone acetonide 0.1 % cream 1 applic TOPICAL DAILY Patient Comments: Not on medication list gabapentin 600 mg tablet 600 mg PO QID Patient Comments: TAKE ONE TABLET BY MOUTH FOUR TIMES A DAY DIRECTED nystatin 100,000 unit/gram cream 1 applic TOPICAL BID Patient Comments: APPLY LIBERALLY TO AFFECTED AREA(S) TWO TIMES A DAY DIRECTED cholecalciferol (vitamin D3) 1,000 UNITS tablet 1,000 units PO DAILY Patient Comments: Not on medication list ipratropium-albuterol 0.5 mg-3 mg(2.5 mg base)/3 mL solution for nebulization 3 ml INHALATION DIRECTED Sin Prasadta 100-62.5-25 mcg blister with device 1 inh INHALATION QAM Patient Comments: INHALE ONE PUFF BY MOUTH EVERY MORNING quetiapine 25 mg tablet 25 mg PO HS Patient Comments: TAKE ONE TABLET BY MOUTH EVERY DAY IN THE EVENING latanoprost 0.005 % drops 1 drp ophthalmic (eye) HS Patient Comments: INSTILL ONE DROP INTO BOTH EYES AT BEDTIME. DUE FOR EYE EXAM. furosemide 40 mg tablet 40 mg PO DAILY Patient Comments: TAKE ONE TABLET BY MOUTH EVERY DAY Discontinued fentanyl 1 EACH patch 72 hour 1 adh.patch Transdermal Q72H MDD 1 patch Q72 hours 30 Days Qty: 10 0RF Rx Instructions: 25mcg - remove old patch when applying new patch losartan 100 mg tablet 100 mg PO DAILY famotidine 40 mg tablet 40 mg PO DAILY Patient Comments: Not on medication list dextromethorphan-guaifenesin [Mucinex DM] 60-1,200 mg Tablet Extended Release 12 Hr 1 tab PO BID PRN Patient Comments: Not on medication list finasteride 5 MG tablet 5 mg PO HS Patient Comments: pts med list states not taking buspirone 30 mg tablet 30 mg PO DAILY Patient Comments: Not on medication list Discharge Instructions Instructions: Heart Failure (DC), Acute Kidney Injury (DC) Stand Alone Forms: Nursing Discharge Form Referrals: Yvonne Solorio [Primary Care Provider] - (Voicemail left with office to call you on Sunday. If you do not hear from them on Sunday please call Sunday to make a follow up appointment for 1 week.) Activity:: Activity as Tolerated Equipment/Supplies:: No Equipment Needed Diet:: Low Sodium Discharge Orders Discharge Orders: Discharge Order (Routine); Ordered 08/11/23 Ordered By: Jerad Gómez DS: Summary Time Spent with Patient providing and/or coordinating discharge services: Greater than 30 minutes Status at Discharge Functional status at discharge: uses cane/walker Overall status at discharge: patient is progressing back to baseline Mental Status: mental status grossly normal Speech and Movement: speech clear Mood: congruent mood Affect: normal affect Exam Narrative Exam Narrative: Gen: Elderly male who is sitting up in his chair, he is alert/oriented. Cooperative. States the restless leg discomfort is improved. Lungs: clear anteriorly, posteriorly some basilar rales, no rhonchi Heart: RRR, soft systolic murmur at apex Abdomen: obese, distended, firm but not hard, good bowel sounds, nontender to palpation legs: erythema of shins is mild. shins with shallow open blisters. No pitting edema. Psych Mental Status: mental status grossly normal Speech and Movement: speech clear Mood: congruent mood Affect: normal affect DS: Data Vitals/I&O Vitals and I&O: Vital Signs Temperature 36.4 C L 08/11/23 07:45 Temperature Source Tympanic 08/11/23 07:45 Pulse 86 08/11/23 09:39 Pulse Rhythm Regular 08/11/23 09:35 Pulse 61 08/03/23 11:20 Respiratory Rate 18 08/11/23 07:45 Respiratory Effort Normal, Non-Labored 08/11/23 09:35 Respiratory Depth Normal 08/11/23 09:35 Respiratory Pattern Normal 08/11/23 09:35 Blood Pressure 132/78 08/11/23 07:45 Blood Pressure Position Supine 08/03/23 07:50 Pulse Oximetry 93 08/11/23 09:31 Oxygen Delivery Method Room Air 08/11/23 09:31 Oxygen Flow Rate 0 08/11/23 09:31 Pain Level 10 08/11/23 07:45 Comment spoke to RN about bp 08/10/23 07:32 Intake & Output 08/10/23 08/10/23 08/11/23 11:59 23:59 11:59 Intake Total 620 / 620 Output Total 1000 / 2300 1300 / 2300 1000 / 1000 Balance -1000 / -1680 -680 / -1680 -1000 / -1000 Intake: IV 280 / 280 Oral 340 / 340 Output: Urine 1000 / 2300 1300 / 2300 1000 / 1000 Other: Urine Color Yellow Yellow Light Paula Urine Appearance Clear Clear Clear Urine Odor Strong None Voiding Methods Urinal Urinal Data Completed and Pending Labs on day of discharge: Labs from last 24 hours 08/11/23 06:26 Sodium 138 Potassium 3.9 Chloride 100 Carbon Dioxide 29.8 Anion Gap 8.2 BUN 16 Creatinine 1.2 Est GFR (CKD-EPI 2020) 58.89 Glucose 92 Calcium 9.3 PFSH All Active Problems Restless leg syndrome (Acute) Cellulitis of lower extremity (Acute) Constipation (Acute) Decubital ulcer (Acute) Chronic anemia (Acute) GARO (acute kidney injury) (Acute) Scrotal edema (Acute) Acute CHF (Acute) Heart failure (Acute) Kidney failure (Chronic) Scrotal swelling (Acute) Edema (Acute) 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 exposure (Acute) Respiratory failure with hypoxia (Acute) Bronchiectasis (Chronic) Nocturnal hypoxia (Acute) Restrictive lung disease (Acute) Foreign body in bladder and urethra (Acute) Dislodged Caban catheter (Acute) Hematuria (Acute) Acute UTI (Acute) Discharge planning issues (Acute) DVT prophylaxis (Acute) Abdominal pain (Acute) Diabetes mellitus (Chronic) BPH (benign prostatic hyperplasia) (Chronic) Essential hypertension (Acute) Lung infiltrate (Acute) UTI (urinary tract infection) (Acute) 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 Cortes [facility] [place] [facility] Total replacement of hip (~1999) Right hip, later revised in 2005 left side 2006 Rotator Cuff Repair (~1996) Right Repair of inguinal hernia (08/31/11) Right sided with orchiectomy Endoscopic Carpal Tunnel release (05/04/15) Right by Dr. Ayala Extraction of cataract (02/15/16) [place] R with IOL; and L as well, Dr. Dickinson in [place] Family History Mother , CVA at age 85. Diabetes age 50 Essential hypertension Stroke Uterine cancer Father , Colon CA at age 87. Colon cancer Sister Breast cancer Sister Ovarian cancer Sister Ovarian cancer Sister No problems noted. Sister No problems noted. Sister No problems noted. Sister No problems noted. Sister No problems noted. Brother Diabetes Brother No problems noted. Brother No problems noted. Social History Smoking/Tobacco Use Status: Never Smoking risk assessment performed?: Yes Alcohol Intake: never Drug use: Never Substance use type: does not use Housing: house Do you feel safe at home: Yes Do you feel safe in your relationship?: Yes Additional Social history: lives with . Time Spent with Patient Time Spent with Patient: 45-69 minutes Time was spent: preparing to see the patient(eg.review tests), obtaining and/or reviewing separately otained hiistory, ordering medications,tests, procedures, referring, communicating with other health youth care worker, indepentently interpreting results, counseling the patient and care coordination
[2023-08-11] MEDS: Acetaminophen 325 MG TAB 650 MG PO (11:44)
[2023-08-11] MEDS: Milk of Magnesia 30 ML CUP PO (11:45)
[2023-08-11] MEDS: Nystatin CREAM 30 GM TUBE TP (11:50)
--- NOTE | 2023-08-11 11:56 | PDOC.HHF2F ---
Home Health Referral Home Health Orders Clinical synopsis of why skilled professionals are needed: Mr Aguilar presented with shorntness of breath. Found to be volume overloaded; diastolic CHF. Diuresed. Noted to have cellulitis of a lower extremity; improving with antibiotics. He will continue outpt oral antibiotic Zyvox for 3 more days. His chronic anemia was treated with IV Venofer and a dose of Aranesp. He developed restless leg symptoms and started on ropinerole. The RLS could be secondary to his iron deficiency. Medical diagnosis necessitation home health referral: Cellulitis of LE. Diastolic CHF; home on diuretic. Registered Nurse: Check all that apply Instruct on new or changed medication(s)/assess compliance: Ordered Physical Therapist: Check all that apply Increase strength & endurance for safe mobility at home: Ordered Home Bound Status Requires the aid of supportive device (check all that apply): Walker Assistance of another person (Describe assistance and medical necessity): Pt has weakness and dysmobility from long hospital stay and LE cellulitis. Requires a walker for ambulation. Describe why leaving home would require a considerable and taxing effort: Requires frequent rest periods Encounter Date and Reason: I certify that a FTF encounter for this patient was performed on August 11, 2023 and that such encounter was related to the primary reason the patient requires home health services. The encounter was conducted in the following manner: By me as the certifying physician, [employer]ER, PA or By an inpatient physician, WO[employer] MANUFACTURER or PA during an inpatient stay who communicated findings to me, Certification And Authentication I certify that I composed the above information based on my clinical judgment relating to this patient's medical condition and, if applicable, clinical findings communicated to me by the NPP or inpatient physician who performed the FTF encounter. Name of Provider that will be monitoring home health services: Jerad Gómez
[2023-08-11] MEDS: Empaglifozin 10 MG TAB PO (12:05)
--- NOTE | 2023-08-11 13:02 | PT.INTREAT ---
PT Notes Visit Reasons: Acute CHF w/Pleural Effusion,GARO,Anemia Inpatient Physical Therapy Treatment Note [facility] Date: 08/11/23 SUBJECTIVE:[place] states that he thinks he is going home today at some point. OBJECTIVE: []? Therapeutic Activities ([id number]): Direct one-on-one instruction in dynamic activities to improve functional performance. ? Sit-stand: I ? Stand-sit:I ? Provided skilled cues and instruction on performance and technique throughout. GAIT? Assistive Device: FWW? Weight bearing:full Assist: SBA? Distance:?approx 250'? Deviation:one seated rest break x 1min, due to B thigh fatigue ? ASSESSMENT:?tolerated session well. Improvement in thigh discomfort and SOB compared to yesterday. He feels as though he can get along enough to get back home. No LOB noted. Is I with transfers. PLAN: pt d/c home TREATMENT CODE/TIME: 24 min [id number]
--- NOTE | 2023-08-11 16:49 | PDOC.CMDIS ---
Date of service: 08/11/23 Time of Service: 16:49 LACE Index Scoring Tool Questions: Length of Stay (in days): 7 - 13 Was the patient admitted via the E.D.?: Yes Comorbidities: Diabetes w/o Complication, Congestive Heart Failure, Chronic Pulmonary Disease and Liver or Renal Disease E.D. Visits: 6 Answers: Total Score: 17 Risk of Readmission: High Risk Care Management Discharge Plan Reason for Hospitalization: Acute CHF with Pleural Effusion, GARO, Anemia Discharge Plan: Ray will be discharged home with new home health services for nursing and PT. He will follow up with his community providers and plan of care and transport with family. Patient/Family Education Needs: Review discharge instructions, limitations, follow up plan and discuss Ask Me Three. Services Needed at Discharge: Home Health Care Services
--- NOTE | 2023-08-13 12:02 | PT.INDS ---
PT Notes Visit Reasons: Acute CHF w/Pleural Effusion,GARO,Anemia Inpatient Physical Therapy Discharge Summary Dates of Service: 08/04/23 - 08/11/23 Date: 08/13/23 Referring Doctor: Dr. Lockhart PT Orders: PT CONSULT: limited ability to ambulate This document serves as a summary of care. No PT services were provided on this date. Patient Profile/Admitting Diagnosis: Patient is an 88 year old male with PMHx of both restrictive lung disease and bronchiectasis, not on oxygen, as well as h/o NIDDM2, HTN, BPH, who was brought to [facility] ED today by ambulance for shortness of breath. He was noted to have significant LE and scrotal edema, and was found to have small right pleural effusion and atelectasis vs infiltrate. He was admitted for management of acute CHF. Patient was seen for 7 sessions of PT intervention over the course of 10 days. They were able to demonstrate safety and mobility sufficient to allow for safe return home with PT. Social History/Home Situation: Patient lives with his . States that he was fully independent up until about a month ago. Had been ambulating independently and without restriction. He went to [facility] for management of GI pain last month, and states that since then, he's been essentially bed-bound due to LE swelling and pain. Currently relying on for assistance with bed mobility and short distance ambulation for toileting. Equipment Owned/DME: FWW, commode. Has right AFO, which he does not utilize. States he's not even sure where it is. Subjective: none obtained Objective: ROM: Right Upper Extremity: Shoulder flexion to 45*. Elbow and wrist motion WFL Left Upper Extremity: Shoulder flexion 165*. Elbow and wrist motion WFL Right Lower Extremity: Hip flexion to 80*. Knee motion 0-90* demonstrated functionally. Ankle DF to neutral only. Left Lower Extremity: Hip flexion to 80*. Knee motion 0-90* demonstrated functionally. Strength: Right Upper Extremity: Shoulder motions 3-/5 due to chronic dysfunction. Biceps 5/5. Triceps 5/5. Left Upper Extremity: Shoulder motions 3/5 or greater. Biceps 5/5. Triceps 5/5. Right Lower Extremity: Assessed functionally, as patient declines seated assessment. Able to perform SLR, heel slides. Ankle DF 3-/5, with patient reporting chronic foot drop. Left Lower Extremity: Assessed functionally, as patient declines seated assessment. Able to perform SLR, heel slides. Ankle DF 3/5 or greater Bed Mobility: supine-sit: SBA sit-supine: SBA Sit-stand: I ? Stand-sit:I ? GAIT? Assistive Device: FWW? Weight bearing:full Assist: SBA? Distance:?approx 250'? Balance: Static Sitting: good Dynamic Sitting: good Static Standing: fair Dynamic Standing: fair Assessment: Patient is an 88 year old male referred to physical therapy services with the diagnosis of limited ability to ambulate. Patient presented with reports of worsening mobility impairments related to ongoing medical issues. He was seen for 7 sessions of PT intervention over the course of 10 days. They were able to demonstrate safety and mobility sufficient to allow for safe return home with PT. Goals: Goals X1 week 1. Supine-Sit : supervision (MET) 2. Sit-Supine : supervision (MET) 3. Sit-Stand : supervision(MET) 4. Stand-Sit : supervision(MET) 5. Bed-Chair : supervision with FWW (MET) 6. Chair-Bed : supervision with FWW (MET) 7. Gait : : supervision with FWW x 50' (Progressing Toward) 8. Stairs : able to ascend and descend 6 steps with bilat rails, min A (Progressing Toward) Plan of Care/Treatment Plan: D/C from PT in acute care setting DISCHARGE RECOMMENDATIONS: Home with services : HH PT TREATMENT CODE/TIME: none Aydee Sanches, PT, DPT [place] [facility]
== END 2023-08-11 12:53 | disposition home health service (06) | DRG 291 ==
LOC: ER 11:03 → MS 12:43
PROVIDERS: Family Medicine; Internal Medicine; Admitting Provider Internal Medicine; Emergency Provider Student in an Organized Health Care Education/Training Program; PCP Family Medicine; Visit Provider Internal Medicine
DX: I13.0 Hypertensive heart and chronic kidney disease with heart failure and stage 1 through stage 4 chronic kidney disease, or unspecified chronic kidney disease (principal); I50.31 Acute diastolic (congestive) heart failure; N17.9 Acute kidney failure, unspecified; L03.115 Cellulitis of right lower limb; L03.116 Cellulitis of left lower limb; L97.812 Non-pressure chronic ulcer of other part of right lower leg with fat layer exposed; J98.4 Other disorders of lung; N18.9 Chronic kidney disease, unspecified; J47.9 Bronchiectasis, uncomplicated; N50.89 Other specified disorders of the male genital organs; J92.0 Pleural plaque with presence of asbestos; M47.816 Spondylosis without myelopathy or radiculopathy, lumbar region; M51.26 Other intervertebral disc displacement, lumbar region; K21.9 Gastro-esophageal reflux disease without esophagitis; E11.40 Type 2 diabetes mellitus with diabetic neuropathy, unspecified; E11.22 Type 2 diabetes mellitus with diabetic chronic kidney disease; M48.00 Spinal stenosis, site unspecified; E66.9 Obesity, unspecified; K64.9 Unspecified hemorrhoids; K57.30 Diverticulosis of large intestine without perforation or abscess without bleeding; R33.9 Retention of urine, unspecified; Z66 Do not resuscitate; N40.1 Benign prostatic hyperplasia with lower urinary tract symptoms; I08.1 Rheumatic disorders of both mitral and tricuspid valves; D50.9 Iron deficiency anemia, unspecified; L89.320 Pressure ulcer of left buttock, unstageable; I83.018 Varicose veins of right lower extremity with ulcer other part of lower leg; B95.61 Methicillin susceptible Staphylococcus aureus infection as the cause of diseases classified elsewhere; K59.01 Slow transit constipation; G25.81 Restless legs syndrome; Z68.33 Body mass index [BMI] 33.0-33.9, adult
CPT/HCPCS: 36415; 36416; 76770; 80048; 80053; 80061; 82962; 85027; 87077; 87635; 87637; 93005; 93308; 94640; 96365; 96366; 96367; 96372; 96375; 96376; 97110; 97162; 97530; 99222; 99232; 99285; 71046; 76870; 81003; 81015; 82565; 82607; 82728; 82746; 83036; 83540; 83550; 83735; 83880; 84439; 84443; 84484; 84540; 85025; 85379; 86140; 87070; 87086; 87186; 93010; 93306; 93970; 94664; 94760; 99223; 99233; 99239; J0690; J1644; J1756; J1940; J1941; J2270; J3490; J7613; J7620

== ENCOUNTER 2023-10-05 09:18 | Inpatient (IN) | payer MEDICARE, SELFPAY ==
[2023-10-05] VITALS (25 sets, daily range): BP systolic 133–169; BP diastolic 70–100; PULSE 46–78; RESP 2–22; TEMP 36.4–36.9; O2SAT 90–99
--- NOTE | 2023-10-05 09:15 | RT.EKG_ITS ---
APPROVED REPORT Exam: Resting ECG Reason for Exam: Bradycardia Patient Location: E HR:53 bpm ECG Measurements Heart Rate 53 AXIS WA [id number] P [id number] QRSd 152 QRS 116 QT 516 T 31 QTc 485 Conclusion Junctional rhythm...absent P waves, slow V-rate Right bundle branch block...QRSd>120, terminal axis(90,270) Physician: no stemi. RBBB appears relatively unchanged
--- NOTE | 2023-10-05 09:15 | DI.RAD_ITS ---
Exam(s) XR PORTABLE CHEST AP EXAM: XR PORTABLE CHEST AP CLINICAL HISTORY: chest pain, sob. TECHNIQUE: 2D digital imaging was performed. COMPARISON: CR XR CHEST 1V IN DI DEPT from 05/03/2023 CR XR CHEST 2V PA LATERAL from 08/03/2023 FINDINGS: Single AP portable somewhat lordotic view. Mild cardiomegaly. Mediastinum not widened. Size of the moderate size right pleural effusion is unc hanged, allowing for changes in technique. There appears to be some infiltrate in the right lung bas e. Mild increased markings evident in the left lower lobe posterior to left heart border, possibly v ascular. No obvious pleural effusion on the left side. No pneumothorax. IMPRESSION: Cardiomegaly. Pulmonary venous hypertension pattern. Moderate size right pleural effusion which was not evident on 05/03/2023 and which appears unchanged from 08/03/2023. Mild infiltrate in the lung bases. DATA REPOSITORY: RADIATION DOSE DELIVERED:
[2023-10-05] MEDS: Albuterol/Ipratropium 3 ML UPD VIAL UPD ×2 (09:36→18:15)
--- NOTE | 2023-10-05 09:49 | W.ED.GENAD ---
Discharge Plan Disposition Patient Disposition: Admit to [facility] Condition: Improving Discharge Details Chief Complaint: Chest Pain Clinical Impression: Reactive airway disease, Congestive heart failure, Hypoxemia Primary Care Provider: Yvonne Solorio ED Provider: Pasha Carballo Home Meds and New Rx's Prescriptions: No Action Linzess 290 mcg capsule 290 mcg PO DAILY PRN acetaminophen 500 MG tablet 1,000 mg PO Q4H PRN Patient Comments: Not on medication list melatonin 3 MG tablet 3 mg PO HS PRN Patient Comments: Not on medication list Rx Instructions: 03/04/17 Dr BASURTO [facility] diclofenac sodium [Voltaren] 100 GM gel 100 gm Topical BID MDD twice Qty: 1 2RF Patient Comments: Not on medication list naloxone [Narcan] 4 MG spray,non-aerosol 4 mg NS as directed 1 Days Qty: 2 0RF Rx Instructions: instill 1 spray into 1 nostril for opioid overdose-may repeat once in opposite nostril if no response hydrochlorothiazide 25 mg tablet 25 mg PO DAILY sodium chloride 7 % solution for nebulization See Rx Instructions .ROUTE .COMPLEX Qty: 240 12RF Dose Instruction: INHALE THE CONTENTS OF ONE VIAL VIA NEBULIZER TWO TIMES A DAY Rx Instructions: INHALE THE CONTENTS OF ONE VIAL VIA NEBULIZER TWO TIMES A DAY oxycodone 10 MG tablet 10 mg PO QID PRN (Reason: Pain) tamsulosin 0.4 mg Capsule 0.4 mg PO HS albuterol sulfate 2.5 mg /3 mL (0.083 %) Solution For Nebulization 2.5 mg Inhalation Q6H PRN polyethylene glycol 3350 17 gram/dose powder 17 g PO DAILY PRN (Reason: Constipation) Patient Comments: TAKE 17G ONE CAPFUL BY MOUTH MIXED IN 8OZ OF LIQUID AND DRINK ONCE DAILY NEEDED albuterol sulfate [ProAir HFA] 90 mcg/actuation HFA aerosol inhaler 2 inh INHALATION Q4H PRN Patient Comments: INHALE TWO PUFFS BY MOUTH EVERY 4 TO 6 HOURS NEEDED ondansetron 4 mg Tablet,Disintegrating 4 mg PO TID PRN Patient Comments: Not on medication list triamcinolone acetonide 0.1 % cream 1 applic TOPICAL DAILY Patient Comments: Not on medication list gabapentin 600 mg tablet 600 mg PO QID Patient Comments: TAKE ONE TABLET BY MOUTH FOUR TIMES A DAY DIRECTED nystatin 100,000 unit/gram cream 1 applic TOPICAL BID Patient Comments: APPLY LIBERALLY TO AFFECTED AREA(S) TWO TIMES A DAY DIRECTED metoprolol succinate 100 mg tablet extended release 24 hr PO Patient Comments: TAKE ONE TABLET BY MOUTH EVERY DAY cholecalciferol (vitamin D3) 1,000 UNITS tablet 1,000 units PO DAILY Patient Comments: Not on medication list ipratropium-albuterol 0.5 mg-3 mg(2.5 mg base)/3 mL solution for nebulization 3 ml INHALATION DIRECTED Trelegy Ellipta 100-62.5-25 mcg blister with device 1 inh INHALATION QAM Patient Comments: INHALE ONE PUFF BY MOUTH EVERY MORNING quetiapine 25 mg tablet 25 mg PO HS Patient Comments: TAKE ONE TABLET BY MOUTH EVERY DAY IN THE EVENING furosemide 40 mg tablet 40 mg PO DAILY Patient Comments: TAKE ONE TABLET BY MOUTH EVERY DAY Jardiance 10 mg Tablet 10 mg PO QAM Qty: 30 0RF losartan 50 mg Tablet 50 mg PO DAILY Qty: 30 0RF spironolactone 25 mg Tablet 25 mg PO DAILY Qty: 30 0RF ropinirole 1 mg tablet 1 mg PO QHS Qty: 30 0RF Medical Decision Making 88-year-old male with a past medical history of reactive airway disease, GERD, previous notable GI bleed requiring laparotomy within the past 3 months, bronchiectasis with no oxygen dependence, type 2 diabetes mellitus, BPH, previous fluid overload. Patient presents today via EMS. Per EMS the patient woke up feeling short of breath with chest tightness. EMS was called, initial call out was for STEMI, but when repeat EKG was performed by senior [employer] consultant unit, there was no evidence of STEMI. Patient was in the 80s for O2 status. He also had intermittent bradycardia with a rate oscillating between the 20s to 50s. No other complaints. Patient was brought to the ER for further assessment. He was given 325 aspirin. Currently the patient admits to mild chest tightness, but denies any chest pain, history of heart attack, vomiting or diarrhea. He does admit to mild cough which she states has been present for the last day. No other complaints at this time. No other modifying factors. He states that he did take his nighttime medications last night but he did not take his daytime meds. Exam demonstrates pitting edema in lower extremities, rhonchorous breath sounds. EKG demonstrates junctional rhythm with a right bundle branch block. No STEMI. Appears somewhat change compared to prior EKG. Breathing treatment will be given to help with wheezing concern for reactive airway component. We will reassess for potential chest tightness after this. POCUS was performed and demonstrates what appears to be a notably dilated heart with a dilated left ventricle and notably dilated left atria. Ejection fraction appears to be around 40 to 50%. Comparison of prior POCUS performed a month or so ago does seem to demonstrate slight worsening of current ejection fraction. There is definite wall motion abnormality in the left ventricle, but uncertain if this is acute versus chronic. Will continue to monitor closely and reassess. 11:39 AM We have titrated the patient down on his oxygen demands. We titrated his 2 L to 0, and at this time he hangs out around 94 to 95%, but he does get conversationally dyspneic and dropped down to around 90. He is still mildly tachypneic. He is chest tightness completely resolved with the breathing treatment. Laboratory workup shows no white count or bandemia. Patient does not report a significant worsening in his chronic cough to me when asked. He denies any recent fever or chills. Electrolytes appear stable. Troponin normal. proBNP is 8500 which is notably higher than normal. Urinalysis negative for infection. Patient was given 40 units of Lasix out of concern for CHF. Chest x-ray does show cardiomegaly pulmonary venous hypertension, moderate pleural effusion mild infiltrate in the lung bases. Symptoms do not appear consistent or close suggestive of pneumonia with his history as he has no white count, he has had no fever or chills. And he denies any worsening of his cough. For that matter his neutrophil count is normal. I suspect that this is more likely a mixed picture of primary congestive heart failure mild exacerbation as his echo seems to demonstrate worsening and ejection fraction in comparison to prior. Additionally I feel there may be some reactive airway disease/COPD on top, compounded by his chronic bronchiectasis. I do feel that he would benefit from admission due to his borderline oxygen demands. We will plan to admit. Contacted the hospitalist and discussed the case with Dr. Lockhart. She agrees with the plan. We will add Solu-Medrol and flu.. I have extensively reviewed the treatment plan with the patient. I have addressed all patient concerns at this time. I have also discussed the plan with the admitting physician and they agree with the current assessment and plan and have agreed to assume responsibility for the patient. All parties demonstrate verbal understanding and agreement with our assessment and plan at this time. The documentation in this chart was dictated using [employer] dictation software. Please excuse any dictation errors. FINDINGS: Single AP portable somewhat lordotic view. Mild cardiomegaly. Mediastinum not widened. Size of the moderate size right pleural effusion is unchanged, allowing for changes in technique. There appears to be some infiltrate in the right lung base. Mild increased markings evident in the left lower lobe posterior to left heart border, possibly vascular. No obvious pleural effusion on the left side. No pneumothorax. IMPRESSION: Cardiomegaly. Pulmonary venous hypertension pattern. Moderate size right pleural effusion which was not evident on 05/03/2023 and which appears unchanged from 08/03/2023. Mild infiltrate in the lung bases. HPI General Date/Time Provider Initiated Documentation: 10/05/23 09:49. HPI Narrative: 88-year-old male with a past medical history of reactive airway disease, GERD, previous notable GI bleed requiring laparotomy within the past 3 months, bronchiectasis with no oxygen dependence, type 2 diabetes mellitus, BPH, previous fluid overload. Patient presents today via EMS. Per EMS the patient woke up feeling short of breath with chest tightness. EMS was called, initial call out was for STEMI, but when repeat EKG was performed by senior [employer] consultant unit, there was no evidence of STEMI. Patient was in the 80s for O2 status. He also had intermittent bradycardia with a rate oscillating between the 20s to 50s. No other complaints. Patient was brought to the ER for further assessment. He was given 325 aspirin. Currently the patient admits to mild chest tightness, but denies any chest pain, history of heart attack, vomiting or diarrhea. He does admit to mild cough which she states has been present for the last day. No other complaints at this time. No other modifying factors. He states that he did take his nighttime medications last night but he did not take his daytime meds. Related Data Home Medications Medication Instructions Recorded Confirmed acetaminophen 500 mg tablet 1,000 mg PO Q4H PRN 07/09/15 10/05/23 melatonin 3 mg tablet 3 mg PO HS PRN 03/07/17 10/05/23 diclofenac sodium 1 % topical gel 100 gm topical BID ##1 09/11/17 10/05/23 (Voltaren) naloxone 4 mg/actuation nasal 4 mg NS as directed 1 day #2 sprays 01/23/18 10/05/23 spray (Narcan) cholecalciferol (vitamin D3) 25 1,000 units PO DAILY 03/14/18 10/05/23 mcg (1,000 unit) tablet oxycodone 10 mg tablet 10 mg PO QID PRN Pain 06/13/18 10/05/23 albuterol sulfate 2.5 mg/3 mL 2.5 mg inhalation Q6H PRN 04/21/19 10/05/23 (0.083 %) solution for nebulization tamsulosin 0.4 mg capsule 0.4 mg PO HS 04/21/19 10/05/23 linaclotide 290 mcg capsule 290 mcg PO DAILY PRN 05/22/19 10/05/23 (Linzess) fluticasone fur. 100 mcg-umeclid 1 inh inhalation QAM 02/24/21 10/05/23 62.5 mcg-vilant 25 mcg inhalat.powder (Trelegy Ellipta) ipratropium 0.5 mg-albuterol 3 mg 3 ml inhalation DIRECTED 02/24/21 10/05/23 (2.5 mg base)/3 mL nebulization soln albuterol sulfate 90 mcg/actuation 2 inh inhalation Q4H PRN 03/02/21 10/05/23 aerosol inhaler (ProAir HFA) ondansetron 4 mg disintegrating 4 mg PO TID PRN 03/02/21 10/05/23 tablet polyethylene glycol 3350 17 17 g PO DAILY PRN Constipation 03/02/21 10/05/23 gram/dose oral powder triamcinolone acetonide 0.1 % 1 applic topical DAILY 03/02/21 10/05/23 topical cream hydrochlorothiazide 25 mg tablet 25 mg PO DAILY 02/06/23 10/05/23 gabapentin 600 mg tablet 600 mg PO QID 05/03/23 10/05/23 nystatin 100,000 unit/gram topical 1 applic topical BID 05/21/23 10/05/23 cream furosemide 40 mg tablet 40 mg PO DAILY 08/03/23 10/05/23 quetiapine 25 mg tablet 25 mg PO HS 08/03/23 10/05/23 empagliflozin 10 mg tablet 10 mg PO QAM #30 tabs 08/11/23 10/05/23 (Jardiance) losartan 50 mg tablet 50 mg PO DAILY #30 tabs 08/11/23 10/05/23 ropinirole 1 mg tablet 1 mg PO QHS #30 tabs 08/11/23 10/05/23 spironolactone 25 mg tablet 25 mg PO DAILY #30 tabs 08/11/23 10/05/23 sodium chloride 7 % for See Rx Instructions .Route 08/27/23 10/05/23 nebulization .COMPLEX #240 mL metoprolol succinate 100 mg mg PO 10/05/23 tablet,extended release 24 hr Previous Rx's Medication Instructions Recorded diclofenac sodium 1 % topical gel 100 gm topical BID ##1 09/11/17 (Voltaren) naloxone 4 mg/actuation nasal 4 mg NS as directed 1 day #2 sprays 01/23/18 spray (Narcan) empagliflozin 10 mg tablet 10 mg PO QAM #30 tabs 08/11/23 (Jardiance) losartan 50 mg tablet 50 mg PO DAILY #30 tabs 08/11/23 ropinirole 1 mg tablet 1 mg PO QHS #30 tabs 08/11/23 spironolactone 25 mg tablet 25 mg PO DAILY #30 tabs 08/11/23 sodium chloride 7 % for See Rx Instructions .Route 08/27/23 nebulization .COMPLEX #240 mL Allergies Allergy/AdvReac Type Severity Reaction Status Date / Time aspirin AdvReac Intermediate GI Bleeding Verified 10/05/23 09:45 NSAIDS (Non-Steroidal AdvReac Intermediate GI Bleeding Verified 10/05/23 09:45 Anti-Inflamma General Stated Complaint: Chest Pain DIAZ: 2 Review of Systems All systems reviewed & are unremarkable except as noted in HPI and below PFSH All Active Problems (Updated 10/05/23 @ 11:43 by Pasha Carballo DO) Hypoxemia (Acute) Congestive heart failure (Chronic) Reactive airway disease (Acute) Restless leg syndrome (Acute) Cellulitis of lower extremity (Acute) Constipation (Acute) Decubital ulcer (Acute) Chronic anemia (Acute) 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 exposure (Acute) Respiratory failure with hypoxia (Acute) Bronchiectasis (Chronic) Nocturnal hypoxia (Acute) Restrictive lung disease (Acute) Foreign body in bladder and urethra (Acute) Dislodged Garcia catheter (Acute) Hematuria (Acute) Acute UTI (Acute) Abdominal pain (Acute) Diabetes mellitus (Chronic) BPH (benign prostatic hyperplasia) (Chronic) Essential hypertension (Acute) Lung infiltrate (Acute) UTI (urinary tract infection) (Acute) 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 Cortes [facility] Total replacement of hip (~1999) Right hip, later revised in 2005 left side 2006 Rotator Cuff Repair (~1996) Right Repair of inguinal hernia (08/31/11) Right sided with orchiectomy Endoscopic Carpal Tunnel release (05/04/15) Right by Dr. Ayala Extraction of cataract (02/15/16) [place] R with IOL; and L as well, Dr. Dickinson in [place] Family History Mother , CVA at age 85. Diabetes age 50 Essential hypertension Stroke Uterine cancer Father , Colon CA at age 87. Colon cancer Sister Breast cancer Sister Ovarian cancer Sister Ovarian cancer Sister No problems noted. Sister No problems noted. Sister No problems noted. Sister No problems noted. Sister No problems noted. Brother Diabetes Brother No problems noted. Brother No problems noted. Social History Smoking/Tobacco Use Status: Never Smoking risk assessment performed?: Yes Alcohol Intake: never Drug use: Never Substance use type: does not use Housing: house Do you feel safe at home: Yes Do you feel safe in your relationship?: Yes Additional Social history: lives with . Exam Narrative Exam Narrative: 1.Const: Well-nourished, Well-developed, appearing stated age 2.Eyes: PERRL, no conjunctival injection, and symmetrical lids. 3.ENT: Atraumatic external nose and ears. Moist MM. Neck: Symmetric, trachea midline, No thyromegaly. 4.CVS: +S1/S2, No murmurs or gallops. Peripheral pulses 2+ and equal in all extremities. Brisk capillary refill in all extremities. 5.RESP: Rhonchorous breath sounds. Scattered wheezes 6.GI: Soft, Nontender/Nondistended, No hepatosplenomegaly. No guarding or rebound. 7.MSK: Normocephalic/Atraumatic, Extremities w/o deformity or ttp No cyanosis or clubbing, Normal movement of all extremities. +2 pitting edema in lower extremities bilaterally. 8.Skin: Warm, Dry. No rashes or lesions. 9.Neuro: machinist mate II-XII grossly intact. Sensation grossly intact, no focal neurologic deficits. 10.Psych: (AAO) x3. Appropriate mood and affect Course Vital Signs Vital signs: Vital Signs Temperature 36.5 C 10/05/23 09:16 Pulse 55 L 10/05/23 09:16 Respiratory Rate 17 10/05/23 09:16 Blood Pressure 169/94 H 10/05/23 09:16 Pulse Oximetry 99 10/05/23 09:16 Temperature 36.5 C 10/05/23 09:16 Temperature Source Skin 10/05/23 09:16 Pulse 52 L 10/05/23 09:32 Pulse 52 L 10/05/23 09:32 Respiratory Rate 16 10/05/23 09:35 Respiratory Effort Short of Breath 10/05/23 09:35 Blood Pressure 147/91 H 10/05/23 09:32 Blood Pressure Mean 112 10/05/23 09:32 Pulse Oximetry 99 10/05/23 09:16 Oxygen Delivery Method Non-Rebreather 10/05/23 09:16 Oxygen Flow Rate 8 10/05/23 09:16 POCUS Exam (ED) Limited Cardiac Exam DATE OF EXAM: 10/05/23 TIME OF EXAM: 10:10 PROVIDER THAT PERFORMED THE STUDY: Pasha Carballo IS THIS A REPEAT EXAM DURING THIS ENCOUNTER: no REASON FOR EXAM: Dyspnea VISUALIZED STRUCTURES: Left atrium, Left ventricle, Right ventricle, Aortic valve and Interventricular septum VIEW OBTAINED: Parasternal long-axis and Parasternal short-axis PERTINENT FINDINGS/IMPRESSION: LV dysfunction and RV dysfunction; No pericardial effusion Exam complete
[2023-10-05 10:03] LABS: Abs Immature Grans 0.01 10^3/uL (0.0-0.06); Absolute Basophil Count 0.07 10^3/uL (0.0-0.2); Absolute Eosinophil Count 0.15 10^3/uL (0.0-0.7); Absolute Lymphocyte Count 1.14 10^3/uL (1.2-3.4); Absolute Monocyte Count 0.76 10^3/uL (0.1-0.8); Absolute Neutrophil Count 3.53 10^3/uL (1.2-6.7); Basophils % 1.2; Eosinophils % 2.7; HCT 35.2 % (40.0-50.0); HGB 11.3 g/dL (13.5-17.5); Immature Grans % 0.2; Lymphocytes % 20.1; MCH 28.6 pg (27.0-33.0); MCHC 32.1 % (32.0-36.0); MCV 89 fL (80-95); MPV 10.3 fL (8.0-11.0); Monocytes % 13.4; Neutrophils % 62.4; Platelet Count 252 10^3/uL (130-400); RBC 3.95 10^6/uL (4.36-5.78); WBC 5.66 10^3/uL (4.4-10.8)
[2023-10-05 10:17] LABS: Anisocytosis 2+; Diff Comment RBC Morph Reviewed; INR 1.2 (0.9-1.1); Macrocytosis 1+; PTT Activated 27.6 sec (23.6-32.8); Polychromasia Present; Prothrombin Time 11.6 sec (9.1-11.1)
[2023-10-05 10:28] LABS: ALT 30 U/L (16-63); AST 33 U/L (15-37); Albumin 3.8 g/dL (3.4-5.0); Alkaline Phosphatase 201 U/L (46-116); Anion Gap 2.4 mmol/L (3-11); BUN 27 mg/dL (7-18); Bilirubin, Total 0.7 mg/dL (0.2-1.0); CO2 33.6 mmol/L (21.0-32.0); CREATININE 1.2 mg/dL (0.70-1.30); Calcium 9.3 mg/dL (8.5-10.1); Chloride 97 mmol/L (98-107); Estimated GFR 58.89 (mL/min/1.73m2); Glucose 102 mg/dL (74-106); NT-proBNP 8586 pg/mL (<300); Potassium 4.7 mmol/L (3.5-5.1); Sodium 133 mmol/L (136-145); Total Protein 7.5 g/dL (6.4-8.2); Troponin I < 50 ng/L (<or=60)
[2023-10-05] MEDS: Furosemide 40 MG/4 ML VIAL IVP ×2 (10:39→16:53)
[2023-10-05] MEDS: Lidocaine 2% Jelly 11 ML SYR (11:15)
[2023-10-05 11:34] LABS: Bilirubin Negative (Negative); Blood Negative (Negative); Clarity Clear (Clear); Glucose Negative (Negative); Ketones Negative (Negative); Leukocyte Esterase Negative (Negative); Nitrite Negative (Negative); Specific Gravity 1.015 (1.005-1.025); Urobilinogen 0.2 mg/dL (Up to 0.2); pH 5.5 (5-8)
[2023-10-05] MEDS: methylPREDNISolone SUCC 125 MG VIAL IVP (11:39)
--- NOTE | 2023-10-05 11:44 | DI.US_ITS ---
APPROVED REPORT EXAM: Comprehensive 2D, Doppler, and color-flow Echocardiogram Patient Location: ER Room/Bed: 2 Project Estimator: Yolie Jeffrey RDCS (AE) Indications: Acute CHF, Limited follow up echo done 08/03/2023 Other Information Study Quality: Adequate. Technically limited study due to body habitus, inability to position patient exam done supine bedside ER. Conclusion Normal left ventricular wall thickness and chamber size. Ejection fraction is 60%. Wall motion is n ormal Normal right ventricular size and systolic function Both atria are normal in size Left ventricular function appears unchanged compared to July 2023 Wall motion Left Ventricle The left ventricular systolic function is normal. The left ventricular ejection fraction is within th e normal range. There is normal LV segmental wall motion. LVEF is 60%. Great Vessels IVC is normal in size and collapses >50% with inspiration. Pericardium There is no pericardial effusion. Auto EF LV EDV A4C 130.4 mL LV EDV A2C 95.3 mL LV EDV BP 112.9 mL LV ESV A4C 46.8 mL LV ESV A2C 44.1 mL LV ESV BP 45.4 mL LVEF(%) A4C 64.1 % LVEF(%) A2C 53.7 % LVEF(%) BP 59.8 % LV SV A4C 83.6 ml LV SV A2C 51.2 ml LV SV BP 67.5 ml LV CO A4C 5.0 L/min LV CO A2C 2.9 L/min LV CO BP 4.0 L/min HR A4C 60.40 BPM HR A2C 57.24 BPM LV EDV Index (BP) LV Strain Long Pk Overal Avg (s) 16.87
[2023-10-05 11:50] LABS: Lab Add On Test DONE
[2023-10-05 12:32] LABS: COVID-19 PCR Negative (Negative); Influenza A PCR Negative (Negative); Influenza B PCR Negative (Negative); RSV PCR Negative (Negative)
[2023-10-05 12:33] LABS: Source Nasopharynx
[2023-10-05 12:40] LABS: Procalcitonin < 0.1 ng/mL
--- NOTE | 2023-10-05 14:17 | W.NUTRFU ---
Date of service: 10/05/23 Time of Service: 14:17 Nutrition Note NOTE: Mr Aguilar know to me from prior admission recently this July. received request for consult for diabetes education. Most recent A1C was 6.6% back on 08/04/23. Reports fair to good appetite and taking 100% of meals most meals. Currently ordered for heart healthy and CHO consistent diet with normal consistencies. Pt voices no need for further diabetes education at this time. Will continue to follow this admission for intake, weight, and any further need or desire for diabetes education. Time Spent in Nutritional Counseling and Treatment: 15 minutes
[2023-10-05] MEDS: Gabapentin 600 MG TAB PO ×2 (14:40→20:43)
[2023-10-05] MEDS: oxyCODONE 10 MG TAB PO ×2 (14:41→19:01)
--- NOTE | 2023-10-05 14:45 | IN_ITS ---
PT Notes Visit Reasons: Acute Hypoxic Respiratory Failure;CHF,Bronchiectas Inpatient Physical Therapy Evaluation Date: 10/05/2023 Referring Doctor: Yajaira Lockhart MD PT Orders: PT CONSULT: Limited ability Precautions: Fall. Standard. Activity as tolerated. Patient Profile/Admitting Diagnosis: Patient is an 88 year old male with medical history significnat for restrictive lung disease and bronchiectasis, not on oxygen, as well as h/o NIDDM2, HTN, BPH, who was brought to [facility] ED today due to shortness of breath and chest tightness. He is admitted for management of acute on chronic congestive heart failure, COPD exacerbation and generalized weakness. Social History/Home Situation: Patient lives with his in a private home with two steps to enter. Ambulatory with walker with carrying a chair directly behind patient so it is ready whenever he needs to sit down. Only covers about 30 feet of level surface ambulation at home. Equipment Owned/DME: FWW, bedside commode Subjective: Agreeable to getting up to sit on bedside chair. Complains about being hungry as he has not eaten since yesterday. Requested JUAN LUIS Barajas to order sandwich for patient as PT got patient out of bed to transfer onto chair for his meal. Complained of pain in crotch area and B knees with weight bearing. Complaining of B knees in pain and weight bearing Objective: General Observation: Semi-reclined at EOB, with LEs in dependent position. Garcia catheter in place. IV in RUE. Scabbed areas in R anterior lovell noted. Skin to B legs discolored. Mental Status: A&Ox3 Pain: As above ROM: Right Upper Extremity: Shoulder flexion to 45*. Elbow and wrist motion WFL Left Upper Extremity: Shoulder flexion 165*. Elbow and wrist motion WFL Right Lower Extremity: Hip flexion to 80*. Knee motion 0-90* demonstrated functionally. Ankle DF to neutral only. Left Lower Extremity: Hip flexion to 80*. Knee motion 0-90* demonstrated functionally. Strength: Right Upper Extremity: Shoulder motions 3-/5 due to chronic dysfunction. Biceps 5/5. Triceps 5/5. Left Upper Extremity: Shoulder motions 3/5 or greater. Biceps 5/5. Triceps 5/5. Right Lower Extremity: Assessed functionally, as patient declines seated assessment. Able to perform SLR, heel slides. Ankle DF 3-/5, with patient reporting chronic foot drop. Left Lower Extremity: Assessed functionally, as patient declines seated assessment. Able to perform SLR, heel slides. Ankle DF 3/5 or greater Bed Mobility/Transfers: Moderate verbal cueing provided for movement sequence, posture, and use of B UE for support to reduce fall risk and pain report. sit-supine: moderate assist sit to stand: moderate assist bed to chair: moderate assist Gait: Patient was guided from edge of bed to bedside chair covering about 8 small steps using front-wheeled walker with minimal assist of PT Dianne and PT Shahrzad with moderate verbal cueing provided for walker management, limb advancement, and increasing B knee extension as tolerated to minimize pain and to reduce fall risk. Balance: Static Sitting: Good Dynamic Sitting: Good Static Standing: Fair Dynamic Standing: Poor Special Tests: Mobility Limitations Standardized Measure [facility] AM-PAC 6 clicks Basic Mobility Inpatient Short Form: Raw Score: 12 CMS Score: 69% impairment Informed Consent/Education: Patient instructed in purpose of PT consult and plan of care. ASSESSMENT: Patient is an 88 year old male with medical history significant for restrictive lung disease and bronchiectasis, not on oxygen, as well as h/o NIDDM2, HTN, BPH, who was brought to [facility] ED today due to shortness of breath and chest tightness. He is admitted for management of acute on chronic congestive heart failure, COPD exacerbation and generalized weakness. Patient presents with clinical signs and symptoms consistent with current/admitting diagnoses that have resulted to mobility limitations, gait instability, generalized weakness, and overall ADL decline as demonstrated by the following impairment level findings: 1. Decreased strength to B UE/LE major muscle groups 2. Impaired sitting/standing balance 3. Impaired activity tolerance 4. Limitation of joint range of motion in B shoulders and knees 5. Shortness of breath 6. Pain in B knees Impairments are contributing to the following functional limitations: 1. Decline in bed mobility skills 2. Decline in transfer skills 3. Difficulty with ambulation without assistive device and physical assistance 4. Increased completion time for mobility ADL performance 5. Increased risk for falls 6. Difficulty with managing steps alone safely Patient is assessed as Moderate 22087 complexity based on the following: History: Patient is an 88 year old male with extensive medical history, now in acute care for management of CFH with bilat LE edema. He reports recent decline in functional mobility, and requires skilled PT intervention for strengthening and gait training to allow for safe return home once medically stable. Examination: functional limitations as noted above Presentation: evolving Decision Makin moderate complexity Goals: Goals X1 week 1. Supine-Sit: supervision 2. Sit-Supine: supervision 3. Sit-Stand: supervision 4. Stand-Sit: supervision 5. Bed-Chair: supervision with FWW 6. Chair-Bed: supervision with FWW 7. Gait:supervision with FWW x 50' 8. Stairs: able to ascend and descend 6 steps with bilat rails, min A Plan of Care/Treatment Plan: 1-2x/day, 7 days/week x 1 week. Plan of care has been reviewed with the TECHNICAL WRITING LEAD/MGR providing the service under Physical Therapy direction. Initiate Physical Therapy intervention for strengthening, bed mobility, transfers, gait, stairs, balance training, use of assistive device. DISCHARGE RECOMMENDATIONS: Home with services : PT TREATMENT CODE/TIME: 27024 x 24 minutes for 1 unit beginning at 14:45 PM Thank you for the opportunity to participate in the care of this patient. Katie Miller PT, DPT, CLT [facility] [place], [place]
[2023-10-05 17:01] LABS: Troponin I < 50 ng/L (<or=60)
[2023-10-05] MEDS: Normal Saline Flush 10 ML SYR IVP ×2 (17:22→20:44)
[2023-10-05] MEDS: Insulin Aspart 300 UNITS/3 ML PEN SC ×2 (17:22→21:48)
--- NOTE | 2023-10-05 17:32 | NUR.NOTE ---
Nursing Note: Pt lost IV access at 17:05, Anna Peck LPN answered pts call yates and heard him saying i'm leaking fluid; more nurses followed when she called for gauze and help. Pt lost what they approximated a half a unit of blood. VSS after blood loss. This keno writer/runner entered the room to assist. Pt clotted off after minutes of holding pressure. Pt has an order for heparin; this nurse held heparin due to bleeding.
--- NOTE | 2023-10-05 19:14 | HPE_ITS ---
Date of service: 10/05/23 Time of Service: 19:14 Assessment and Plan Assessment and plan (1) (HFpEF) heart failure with preserved ejection fraction: Status: Acute Assessment and plan: In acute exacerbation. Will diurese, while monitoring I/Os and daily weights. (2) Pulmonary hypertension: Status: Acute Assessment and plan: RVSP on echo in 08/20 was 48 mmHg. As above (3) Pleural effusion: Status: Acute Assessment and plan: As above The size of the effusion is stable. Consider thoracenthesis. (4) Bronchiectasis: Status: Chronic Assessment and plan: In acute exacerbation. Procalcitonin negative. Not starting abx. Encourage pulmonary toilet. Started on prednisone. Qualifiers: Bronchiectasis type: uncomplicated Qualified Code(s): J47.9 - Bronchiectasis, uncomplicated (5) Restrictive lung disease: Status: Chronic Assessment and plan: Encourage pulmonary toilet (6) Hypoxemia: Status: Acute Assessment and plan: Due to all of the above As above (7) DVT prophylaxis: Status: Acute Assessment and plan: Sc heparin (8) Discharge planning issues: Status: Acute Assessment and plan: Full code (changed code status from DNR/DNI to full code in the ED). C/s PT and palliative care History of Present Illness History of Present Illness Chief Complaint: shortness of breath and chest tightness Narrative: Mr Aguilar is an 88 year old male with PMHx of CHFpEF, bronchiectasis, NIDDM2, HTN, chronic pain, who was brought to [facility] ED today by EMS (initially a STEMI alert, which was then cancelled) with complaints of shortness of breath and wheezing. The patient was saturating 80s on RA for EMS. The patient had no evidence of STEMI. 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 His presentation in the ED was consistent with pulmonary edema as well as exacerbation of bronchiectasis. A nebulizer treatment relieved his chest tightness. Troponins were negative for ischemia, as was the EKG. Initially, he required 8L of O2 by NC, but was able to be successfully weaned down to RA with O2 sats in low 90s, though still mildly tachypneic. He tested negative for Flu/RSV/COVID-19. Hospitalist admission for further treatment of CHF and bronchiectasis was requested. On my interview with him, the patient stated that he has had worsening shortness of breath and swelling in LEs for about 3-4 days. He has also noted some scrotal swelling. Endorses nonproductive cough and occasional dizziness, nausea, and palpitations which he calls anxiety. He denies fevers, runny nose, sore throat. He denies noncompliance with medications or dietary indiscretions. He endorses orthopnea (has been elevating the head of bed at home) as well as PND. He also says he snores and uses 2L of O2 by NC at night. States his lower extremities have been pink ever since he left the hospital last time. Review of Systems All systems reviewed & are unremarkable except as noted in HPI and below PFSH All Active Problems (Updated 10/05/23 @ 19:28 by Yajaira Lockhart MD) Discharge planning issues (Acute) DVT prophylaxis (Acute) Pleural effusion (Acute) Pulmonary hypertension (Acute) (HFpEF) heart failure with preserved ejection fraction (Acute) Hypoxemia (Acute) Congestive heart failure (Chronic) Reactive airway disease (Acute) Restless leg syndrome (Acute) Cellulitis of lower extremity (Acute) Constipation (Acute) Decubital ulcer (Acute) Chronic anemia (Acute) 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 exposure (Acute) Respiratory failure with hypoxia (Acute) Bronchiectasis (Chronic) Nocturnal hypoxia (Acute) Restrictive lung disease (Chronic) Foreign body in bladder and urethra (Acute) Dislodged Caban catheter (Acute) Hematuria (Acute) Acute UTI (Acute) Abdominal pain (Acute) Diabetes mellitus (Chronic) BPH (benign prostatic hyperplasia) (Chronic) Essential hypertension (Acute) Lung infiltrate (Acute) UTI (urinary tract infection) (Acute) 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 Cortes [facility] Total replacement of hip (~1999) Right hip, later revised in 2005 left side 2007 Rotator Cuff Repair (~1996) Right Repair of inguinal hernia (08/31/11) Right sided with orchiectomy Endoscopic Carpal Tunnel release (05/04/15) Right by Dr. Ayala Extraction of cataract (02/15/16) [place] R with IOL; and L as well, Dr. Dickinson in [place] Family History Mother , CVA at age 85. Diabetes age 50 Essential hypertension Stroke Uterine cancer Father , Colon CA at age 87. Colon cancer Sister Breast cancer Sister Ovarian cancer Sister Ovarian cancer Sister No problems noted. Sister No problems noted. Sister No problems noted. Sister No problems noted. Sister No problems noted. Brother Diabetes Brother No problems noted. Brother No problems noted. Social History Smoking/Tobacco Use Status: Never Smoking risk assessment performed?: Yes Alcohol Intake: never Drug use: Never Substance use type: does not use Housing: house Do you feel safe at home: Yes Do you feel safe in your relationship?: Yes Additional Social history: lives with . Meds Allergies and Home Medications Allergies Allergy/AdvReac Type Severity Reaction Status Date / Time aspirin AdvReac Intermediate GI Bleeding Verified 10/05/23 09:45 NSAIDS (Non-Steroidal AdvReac Intermediate GI Bleeding Verified 10/05/23 09:45 Anti-Inflamma Home Medications Medication Instructions Recorded Confirmed Type acetaminophen 500 mg tablet 1,000 mg PO Q4H PRN 07/09/15 10/05/23 History melatonin 3 mg tablet 3 mg PO HS PRN 03/07/17 10/05/23 History diclofenac sodium 1 % topical gel 100 gm topical BID ##1 09/11/17 10/05/23 Rx (Voltaren) naloxone 4 mg/actuation nasal 4 mg NS as directed 1 day #2 sprays 01/23/18 10/05/23 Rx spray (Narcan) cholecalciferol (vitamin D3) 25 1,000 units PO DAILY 03/14/18 10/05/23 History mcg (1,000 unit) tablet oxycodone 10 mg tablet 10 mg PO QID PRN Pain 06/13/18 10/05/23 History albuterol sulfate 2.5 mg/3 mL 2.5 mg inhalation Q6H PRN 04/21/19 10/05/23 History (0.083 %) solution for nebulization tamsulosin 0.4 mg capsule 0.4 mg PO HS 04/21/19 10/05/23 History linaclotide 290 mcg capsule 290 mcg PO DAILY PRN 05/22/19 10/05/23 History (Linzess) fluticasone fur. 100 mcg-umeclid 1 inh inhalation QAM 02/24/21 10/05/23 History 62.5 mcg-vilant 25 mcg inhalat.powder (Trelegy Ellipta) ipratropium 0.5 mg-albuterol 3 mg 3 ml inhalation DIRECTED 02/24/21 10/05/23 History (2.5 mg base)/3 mL nebulization soln albuterol sulfate 90 mcg/actuation 2 inh inhalation Q4H PRN 03/02/21 10/05/23 History aerosol inhaler (ProAir HFA) ondansetron 4 mg disintegrating 4 mg PO TID PRN 03/02/21 10/05/23 History tablet polyethylene glycol 3350 17 17 g PO DAILY PRN Constipation 03/02/21 10/05/23 History gram/dose oral powder triamcinolone acetonide 0.1 % 1 applic topical DAILY 03/02/21 10/05/23 History topical cream hydrochlorothiazide 25 mg tablet 25 mg PO DAILY 02/06/23 10/05/23 History gabapentin 600 mg tablet 600 mg PO QID 05/03/23 10/05/23 History nystatin 100,000 unit/gram topical 1 applic topical BID 05/21/23 10/05/23 History cream furosemide 40 mg tablet 40 mg PO DAILY 08/03/23 10/05/23 History quetiapine 25 mg tablet 25 mg PO HS 08/03/23 10/05/23 History empagliflozin 10 mg tablet 10 mg PO QAM #30 tabs 08/11/23 10/05/23 Rx (Jardiance) losartan 50 mg tablet 50 mg PO DAILY #30 tabs 08/11/23 10/05/23 Rx ropinirole 1 mg tablet 1 mg PO QHS #30 tabs 08/11/23 10/05/23 Rx spironolactone 25 mg tablet 25 mg PO DAILY #30 tabs 08/11/23 10/05/23 Rx sodium chloride 7 % for See Rx Instructions .Route 08/27/23 10/05/23 Rx nebulization .COMPLEX #240 mL metoprolol succinate 100 mg mg PO 10/05/23 History tablet,extended release 24 hr Exam Narrative Exam Narrative: General: A pleasant elderly male who is A&Ox3, appear comfortable in bed laying at about 30 degree angle on RA Neurological: A&Ox3, no focal deficits Psychiatric: mildly anxious, appropriate speech pattern/content Skin: distal BLE w/ mild erythema and warmth, symmetric HEENT: Atraumatic, normocephalic, EOMI, dry MM, clear oropharynx, no submandibular or cervical lymphadenopathy, no goiter or JVD Cardiovascular: RRR, no m/r/g Lungs: Diminished breath sounds B Gastrointestinal: soft, nontender, nondistended Genitourinary: has a caban catheter; scrotal edema Extremities: woody edema BLEs, see skin exam above, +1 pedal pulse in LLE, unable to palpate pedal pulse RLE, no lesions on B feet; L foot 1st digit with onychomycosis Results Imaging Additional studies: CXR: Cardiomegaly. Pulmonary venous hypertension pattern. Moderate size right pleural effusion which was not evident on 05/03/2023 and which appears unchanged from 08/03/2023. Mild infiltrate in the lung bases. Echo limited views; Normal left ventricular wall thickness and chamber size. Ejection fraction is 60%. Wall motion is normal Normal right ventricular size and systolic function Both atria are normal in size Left ventricular function appears unchanged compared to July 2023 EKG: Junctional rhythm, HR 53, RBBB, no acute ischemia. Both junctional rhythm and RBBB are old. Labs 10/05/23 09:55 10/05/23 09:55 Labs: Laboratory Results - last 24 hr 10/05/23 10/05/23 10/05/23 09:25 09:40 09:55 WBC Cancelled 5.66 RBC Cancelled 3.95 L Hgb Cancelled 11.3 L Hct Cancelled 35.2 L MCV Cancelled 89 MCH Cancelled 28.6 MCHC Cancelled 32.1 RDW Cancelled Plt Count Cancelled 252 MPV Cancelled 10.3 Immature Gran % Cancelled 0.2 Neutrophils % Cancelled 62.4 Band Neutrophils % Cancelled Lymphocytes % Cancelled 20.1 Atypical Lymphs % Cancelled Monocytes % Cancelled 13.4 Eosinophils % Cancelled 2.7 Basophils % Cancelled 1.2 Metamyelocytes % Cancelled Myelocytes % Cancelled Promyelocytes % Cancelled Other Cells % Cancelled Nucleated RBC % Cancelled 0.0 Absolute Neutrophils Cancelled 3.53 Absolute Lymphocytes Cancelled 1.14 L Absolute Monocytes Cancelled 0.76 Absolute Eosinophils Cancelled 0.15 Absolute Basophils Cancelled 0.07 RBC Morphology Cancelled See Below Polychromasia Cancelled Present Hypochromasia Cancelled Poikilocytosis Cancelled Basophilic Stippling Cancelled Anisocytosis Cancelled 2+ Microcytosis Cancelled Macrocytosis Cancelled 1+ Spherocytes Cancelled Tear Drop Cells Cancelled Ovalocytes Cancelled Stomatocytes Cancelled Quijano-Wakeman Bodies Cancelled Malgorzata Cells/Echinocytes Cancelled Acanthocytes (Spur) Cancelled Schistocytes Cancelled PT Cancelled 11.6 H INR Cancelled 1.2 H APTT Cancelled 27.6 Sodium Cancelled 133 L Potassium Cancelled 4.7 Chloride Cancelled 97 L Carbon Dioxide Cancelled 33.6 H Anion Gap Cancelled 2.4 L BUN Cancelled 27 H Creatinine Cancelled 1.2 Est GFR (CKD-EPI 2020) Cancelled 58.89 Glucose Cancelled 102 Calcium Cancelled 9.3 Total Bilirubin Cancelled 0.7 AST Cancelled 33 ALT Cancelled 30 Alkaline Phosphatase Cancelled 201 H Troponin I Cancelled < 50 NT-Pro-B Natriuret Pep Cancelled 8586 H Total Protein Cancelled 7.5 Albumin Cancelled 3.8 Procalcitonin < 0.1 TSH Cancelled 4.30 H Free T4 0.90 Urine Color Urine Clarity Urine pH Ur Specific [place] Urine Protein Urine Ketones Urine Blood Urine Nitrite Urine Bilirubin Urine Urobilinogen Ur Leukocyte Esterase Urine Glucose COVID-19 Source SARS-CoV-2 (PCR) Influenza Type A (PCR) Influenza Type B (PCR) RSV (PCR) Add-On Test Request DONE Patient ABO/Rh O Positive Antibody Screen NEGATIVE 10/05/23 10/05/23 10/05/23 11:20 11:40 16:30 WBC RBC Hgb Hct MCV MCH MCHC RDW Plt Count MPV Immature Gran % Neutrophils % Band Neutrophils % Lymphocytes % Atypical Lymphs % Monocytes % Eosinophils % Basophils % Metamyelocytes % Myelocytes % Promyelocytes % Other Cells % Nucleated RBC % Absolute Neutrophils Absolute Lymphocytes Absolute Monocytes Absolute Eosinophils Absolute Basophils RBC Morphology Polychromasia Hypochromasia Poikilocytosis Basophilic Stippling Anisocytosis Microcytosis Macrocytosis Spherocytes Tear Drop Cells Ovalocytes Stomatocytes Quijano-Wakeman Bodies Malgorzata Cells/Echinocytes Acanthocytes (Spur) Schistocytes PT INR APTT Sodium Potassium Chloride Carbon Dioxide Anion Gap BUN Creatinine Est GFR (CKD-EPI 2020) Glucose Calcium Total Bilirubin AST ALT Alkaline Phosphatase Troponin I < 50 NT-Pro-B Natriuret Pep Total Protein Albumin Procalcitonin TSH Free T4 Urine Color Yellow Urine Clarity Clear Urine pH 5.5 Ur Specific [place] 1.015 Urine Protein Negative Urine Ketones Negative Urine Blood Negative Urine Nitrite Negative Urine Bilirubin Negative Urine Urobilinogen 0.2 Ur Leukocyte Esterase Negative Urine Glucose Negative COVID-19 Source Nasopharynx SARS-CoV-2 (PCR) Negative Influenza Type A (PCR) Negative Influenza Type B (PCR) Negative RSV (PCR) Negative Add-On Test Request Patient ABO/Rh Antibody Screen Last Vital Signs Temp 36.9 C 10/05/23 17:17 Pulse 71 10/05/23 18:21 Resp 18 10/05/23 18:15 BP 144/81 H 10/05/23 17:17 Pulse Ox 93 10/05/23 18:21 Time Spent Time spent with Patient: 55-74 minutes Time was spent: preparing to see the patient(eg.review tests), obtaining and/or reviewing separately otained hiistory, ordering medications,tests, procedures, referring, communicating with other health child care education coordinator, indepentently interpreting results, counseling the patient and care coordination
[2023-10-05] MEDS: Budesonide/Formoterol 80/4.5 6.9 GM 60 PUFF INH IH (20:05)
[2023-10-05] MEDS: Tamsulosin 0.4 MG CAPCR PO (21:57)
[2023-10-05] MEDS: rOPINIRole 1 MG TAB PO (21:57)
[2023-10-06] VITALS (20 sets, daily range): BP systolic 107–139; BP diastolic 57–70; PULSE 20–84; RESP 2–71; TEMP 36.1–36.8; O2SAT 89–99
[2023-10-06] MEDS: oxyCODONE 10 MG TAB PO ×3 (03:29→22:56)
[2023-10-06] MEDS: Heparin 5,000 UNITS/ML VIAL 5000 UNITS SC ×2 (05:49→17:56)
[2023-10-06] MEDS: Albuterol/Ipratropium 3 ML UPD VIAL UPD ×5 (05:54→22:57)
[2023-10-06 06:44] LABS: Abs Immature Grans 0.03 10^3/uL (0.0-0.06); Absolute Basophil Count 0.02 10^3/uL (0.0-0.2); Absolute Lymphocyte Count 1.08 10^3/uL (1.2-3.4); Absolute Monocyte Count 1.22 10^3/uL (0.1-0.8); Absolute Neutrophil Count 6.98 10^3/uL (1.2-6.7); Basophils % 0.2; HCT 33.1 % (40.0-50.0); HGB 10.8 g/dL (13.5-17.5); Immature Grans % 0.3; Lymphocytes % 11.6; MCH 28.3 pg (27.0-33.0); MCHC 32.6 % (32.0-36.0); MCV 87 fL (80-95); MPV 10.7 fL (8.0-11.0); Monocytes % 13.1; Neutrophils % 74.8; Platelet Count 267 10^3/uL (130-400); RBC 3.81 10^6/uL (4.36-5.78); WBC 9.33 10^3/uL (4.4-10.8)
[2023-10-06 07:01] LABS: Anion Gap 4.8 mmol/L (3-11); BUN 34 mg/dL (7-18); CO2 31.2 mmol/L (21.0-32.0); CREATININE 1.3 mg/dL (0.70-1.30); Calcium 9.1 mg/dL (8.5-10.1); Chloride 99 mmol/L (98-107); Glucose 140 mg/dL (74-106); Potassium 4.4 mmol/L (3.5-5.1); Sodium 135 mmol/L (136-145)
[2023-10-06 07:07] LABS: Anisocytosis 2+; Diff Comment RBC Morph Reviewed; Hypochromasia 1+
[2023-10-06] MEDS: Pantoprazole 40 MG TABCR PO (07:29)
[2023-10-06] MEDS: Normal Saline Flush 10 ML SYR IVP ×4 (07:31→21:31)
[2023-10-06] MEDS: Albuterol 2.5 MG/3 ML INH SOLN VIAL UPD (07:51)
[2023-10-06] MEDS: Furosemide 40 MG/4 ML VIAL IVP ×2 (08:28→16:14)
[2023-10-06] MEDS: hydroCHLOROthiazide 25 MG TAB PO (08:40)
[2023-10-06] MEDS: Gabapentin 600 MG TAB PO ×4 (08:40→19:32)
[2023-10-06] MEDS: Empaglifozin 10 MG TAB PO (08:40)
[2023-10-06] MEDS: Spironolactone 25 MG TAB PO (08:41)
[2023-10-06] MEDS: Metoprolol CR 100 MG TABCR PO (08:41)
[2023-10-06] MEDS: Docusate Sodium 100 MG CAP PO (08:41)
[2023-10-06] MEDS: predniSONE 20 MG TAB 40 MG PO (08:41)
[2023-10-06] MEDS: Losartan 50 MG TAB PO (08:43)
[2023-10-06] MEDS: Tiotropium Bromide-Respimat 10 PUFF INH 2 PUFF IH (09:10)
[2023-10-06] MEDS: Budesonide/Formoterol 80/4.5 6.9 GM 60 PUFF INH IH ×2 (09:10→19:39)
--- NOTE | 2023-10-06 11:34 | INITIAL_ITS ---
Date of service: 10/06/23 Time of Service: 11:34 Care Management Initial Assmt Initial Assessment REASON FOR HOSPITALIZATION:: Acute hypoxic respiratory failure; CHF, bronchiectasis PREVIOUS FUNCTIONAL STATUS/SOCIAL/FAMILY SUPPORTS:: Resides in [place] with , Aydee. The couple has three adult children. Per reports, Jamie sundowns in the late afternoon. CURRENT FUNCTIONAL STATUS:: Down and back to [facility] for shoulder relocation today. Has patient been provided with info about the portal/API?: Yes Did the patient sign up for the portal?: No CODE STATUS:: Full Code INSURANCE COVERAGE / FINANCIAL ISSUES:: [facility] MCR Replacement CURRENT HOME/COMMUNITY SERVICES/EQUIPMENT:: Raised toilet seat, grab bars, tub seat/bench, handrails PRIMARY CARE PHYSICIAN:: Yvonne Solorio POTENTIAL DISCHARGE NEEDS:: Follow up appointments, wound consult, PT and Palliative consults, Plastic Eye Technician consult PATIENT/FAMILY EDUCATION NEEDS:: Review discharge instructions, discuss Ask Me Three. ANTICIPATED BARRIERS TO DISCHARGE:: None identified TRANSPORTATION:: Via private vehicle with his . PLAN:: Jamie will return home when ready per MD. He will follow up with his PCP and plan of care as prescribed. He will transport via private vehicle with his , Aydee. PFSH All Active Problems (Updated 10/08/23 @ 10:22 by Pili Coreas MD, DC) Palliative care encounter (Acute) Advance care planning (Acute) Discharge planning issues (Acute) DVT prophylaxis (Acute) Pleural effusion (Acute) Pulmonary hypertension (Acute) (HFpEF) heart failure with preserved ejection fraction (Acute) Hypoxemia (Acute) Congestive heart failure (Chronic) Reactive airway disease (Acute) Restless leg syndrome (Acute) Cellulitis of lower extremity (Acute) Constipation (Acute) Decubital ulcer (Acute) Chronic anemia (Acute) 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 exposure (Acute) Respiratory failure with hypoxia (Acute) Bronchiectasis (Chronic) Nocturnal hypoxia (Acute) Restrictive lung disease (Chronic) Foreign body in bladder and urethra (Acute) Dislodged Garcia catheter (Acute) Hematuria (Acute) Acute UTI (Acute) Abdominal pain (Acute) Diabetes mellitus (Chronic) BPH (benign prostatic hyperplasia) (Chronic) Essential hypertension (Acute) Lung infiltrate (Acute) UTI (urinary tract infection) (Acute) 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 Cortes [facility] Total replacement of hip (~1999) Right hip, later revised in 2005 left side 2006 Rotator Cuff Repair (~1996) Right Repair of inguinal hernia (08/31/11) Right sided with orchiectomy Endoscopic Carpal Tunnel release (05/04/15) Right by Dr. Ayala Extraction of cataract (02/15/16) [place] R with IOL; and L as well, Dr. Dickinson in [place] Family History Mother , CVA at age 85. Diabetes age 50 Essential hypertension Stroke Uterine cancer Father , Colon CA at age 87. Colon cancer Sister Breast cancer Sister Ovarian cancer Sister Ovarian cancer Sister No problems noted. Sister No problems noted. Sister No problems noted. Sister No problems noted. Sister No problems noted. Brother Diabetes Brother No problems noted. Brother No problems noted. Social History Smoking/Tobacco Use Status: Never Smoking risk assessment performed?: Yes Alcohol Intake: never Drug use: Never Substance use type: does not use Housing: house Do you feel safe at home: Yes Do you feel safe in your relationship?: Yes Additional Social history: lives with .
[2023-10-06] MEDS: Insulin Aspart 300 UNITS/3 ML PEN SC ×3 (11:58→21:20)
--- NOTE | 2023-10-06 12:12 | PT.INNT ---
PT Notes Visit Reasons: Acute Hypoxic Respiratory Failure;CHF,Bronchiectas refused PT x2
--- NOTE | 2023-10-06 13:06 | PGE_ITS ---
Date of Service Date of service: 10/06/23 Time of Service: 13:06 Assessment and Plan Assessment and plan (1) (HFpEF) heart failure with preserved ejection fraction: Status: Acute Assessment and plan: In acute exacerbation. Continue IV diuretics, adjust losartan, adjust spironolactone, consider transition over to Entresto. Monitor daily weights Professional time evaluating the patient, putting in orders, documenting his care and discussion of his care w/ his providers took 35 minutes Qualifiers: Heart failure chronicity: acute on chronic Qualified Code(s): I50.33 - Acute on chronic diastolic (congestive) heart failure (2) Pulmonary hypertension: Status: Acute Assessment and plan: RVSP on echo in 08/20 was 48 mmHg. As above (3) Pleural effusion: Status: Acute Assessment and plan: As above The size of the effusion is stable. Consider thoracenthesis. (4) Bronchiectasis: Status: Chronic Assessment and plan: In acute exacerbation. Procalcitonin negative. Not starting abx. Encourage pulmonary toilet. Started on prednisone. Qualifiers: Bronchiectasis type: uncomplicated Qualified Code(s): J47.9 - Bronchiectasis, uncomplicated (5) Restrictive lung disease: Status: Chronic Assessment and plan: Encourage pulmonary toilet (6) Hypoxemia: Status: Acute Assessment and plan: Due to all of the above As above (7) DVT prophylaxis: Status: Acute Assessment and plan: Sc heparin (8) Discharge planning issues: Status: Acute Assessment and plan: Full code (changed code status from DNR/DNI to full code in the ED). C/s PT and palliative care Subjective Subjective Interval history since last seen: Jamie is having increased pain from his restless leg syndrome. He has been medicated with oxycodone has been chronically on gabapentin and takes ropinirole at night. Also not been sleeping well. Added Remeron 7.5 mg nightly and will increase his ropinirole to 1.5 mg nightly. Continue current gabapentin 600 mg qid but consider titrating to 900 mg 3 times daily. With respect to his breathing and has improved with bronchodilators and diuresis Patient is net -5 L since admission. Weight is down 2.2 kg since admission. He continues to receive furosemide 40 mg twice a day intravenously and I have increased his spironolactone from 25 mg daily to 50 mg daily. He remains on Jardiance. I have adjusted his losartan to 75 mg daily.. Exam Narrative Exam Narrative: Jamie is alert and oriented Lungs with bibasilar rales no rhonchi or wheezing Heart is irregularly irregular, telemetry demonstrates atrial fibrillation at a controlled rate in the 60s to 70s. Abdomen is obese soft and nontender Lower extremities 1+ pitting edema legs are wrapped with Moris wraps. Objective Last Vital Signs Temp 36.8 C 10/06/23 11:10 Pulse 75 10/06/23 12:53 Resp 20 10/06/23 12:53 BP 133/57 L 10/06/23 11:10 Pulse Ox 95 10/06/23 12:53 Laboratory Results - last 24 hr 10/05/23 10/06/23 16:30 06:04 WBC 9.33 RBC 3.81 L Hgb 10.8 L Hct 33.1 L MCV 87 MCH 28.3 MCHC 32.6 RDW Plt Count 267 MPV 10.7 Immature Gran % 0.3 Neutrophils % 74.8 Lymphocytes % 11.6 Monocytes % 13.1 Eosinophils % 0.0 Basophils % 0.2 Nucleated RBC % 0.0 Absolute Neutrophils 6.98 H Absolute Lymphocytes 1.08 L Absolute Monocytes 1.22 H Absolute Eosinophils 0.00 Absolute Basophils 0.02 RBC Morphology See Below Hypochromasia 1+ Anisocytosis 2+ Sodium 135 L Potassium 4.4 Chloride 99 Carbon Dioxide 31.2 Anion Gap 4.8 BUN 34 H Creatinine 1.3 Est GFR (CKD-EPI 2020) 53.50 Glucose 140 H Calcium 9.1 Magnesium 2.0 Troponin I < 50 Time Spent with Patient Time Spent with Patient: 35-49 minutes Time was spent: preparing to see the patient(eg.review tests), ordering medications,tests, procedures, referring, communicating with other health rn palliative care, indepentently interpreting results, counseling the patient and care coordination
--- NOTE | 2023-10-06 13:10 | NUR.NOTE ---
Nursing Note: Patient was in pain at the time so this technical proposal writer entered room to give pain meds and patient was intermediate out of bed. Patient was safe and helped to the side of the bed. This technical proposal writer noticed blood coming from the posterior part of his R leg. It appeared as if a blister had popped and was bleeding. Gauze placed on open area and TRENT wraps placed over per MD orders.
[2023-10-06] MEDS: Polyethylene Glycol 3350 17 GM PACKET PO (15:55)
--- NOTE | 2023-10-06 17:33 | WOUNDCONS ---
Date of service: 10/06/23 Time of Service: 16:30 Wound Initial Evaluation Narrative Narrative: Pt was admitted for sob and found to have pulmonary edema. Also was noted to have cellulitis of the lower extremities with significant edema. Pt does have a history including: Pulmonary hypertension, heart failure with preserved ejection fraction, Hypoxemia, Reactive airway disease, Restless leg syndrome, Chronic anemia, 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 exposure, Bronchiectasis, Restrictiive lung disease, Diabetes mellitus, BPH, Spondylosis of lumbosacral region without myelopathy or radiculopathy, Herniated lumbar disc. Body Four View: 1. Left posterior tib\fib (calf) 2. Right posterior tib\fib (calf) 3. Right proximal anterior tib 4. Right medial great toe Wound Left Posterior Tib/Fib(lower leg): Wound Type: Statis Ulcer and Partial Thickness Wound General Appearance: Reddened, Draining and Unapproximated Wound Bed Greatest Portion: Dusky Red Wound Bed Lesser Portion: Yellow (Slough) Wound Surrounding Tissue Appearance: Bright Red Percent of Wound Bed Granulated/Red: 50 Percent of Wound Bed Slough/Yellow: 40 Percent of Wound Bed Eschar/Black: 10 Wound Length: 0.79 in Wound Width: 0.2 in Wound Depth: 0.04 in Wound Drainage Amount: Minimal Wound Drainage Odor: None/Absent Wound Drainage Description: Sero Sanguineous Wound Topical Solution/Irrigant: Other (Anasept) Wound Debridement Method: Other (Debrisoft sponge) Wound Debridement Result: Yellow Sloughing Remains Wound Debridement Amount of Tissue Removed: Minimal Right Posterior Tib/Fib(lower leg): Wound Type: Statis Ulcer and Partial Thickness Wound General Appearance: Reddened, Blackened and Unapproximated Wound Bed Greatest Portion: Dusky Red Wound Bed Lesser Portion: Black (Eschar) Wound Surrounding Tissue Appearance: Bright Red, Shiny and Edematous-pitting Percent of Wound Bed Granulated/Red: 20 Percent of Wound Bed Slough/Yellow: 50 Percent of Wound Bed Eschar/Black: 30 Wound Length: 1.57 in Wound Width: 0.79 in Wound Depth: 0.04 in Wound Drainage Amount: None Wound Drainage Odor: None/Absent Wound Topical Solution/Irrigant: Other (Anasept) Wound Debridement Method: Other (Debrisoft) Wound Debridement Result: Necrotic Remains Wound Debridement Amount of Tissue Removed: None Right Anterior Tib/Fib(lower leg): Wound Type: Abrasion, Statis Ulcer and Partial Thickness Wound General Appearance: Reddened, Blackened and Unapproximated Wound Bed Greatest Portion: Red (Granulation) and Shiny Wound Bed Lesser Portion: Yellow (Slough) and Black (Eschar) Wound Surrounding Tissue Appearance: Blanched/Dull and Edematous-pitting Percent of Wound Bed Granulated/Red: 70 Percent of Wound Bed Slough/Yellow: 15 Percent of Wound Bed Eschar/Black: 15 Wound Drainage Amount: None Wound Drainage Odor: None/Absent Wound Topical Solution/Irrigant: Other (Anasept) Wound Debridement Method: Other (Debrisoft sponge) Wound Debridement Result: Yellow Sloughing Remains Wound Debridement Amount of Tissue Removed: None Right Medial Great toe: Wound Type: Diabetic Ulcer and Other Pressure Ulcer Stage: Eschar/Unstageable Wound General Appearance: Blackened and Other (callused area around wound) Wound Bed Greatest Portion: Black (Eschar) Wound Bed Lesser Portion: Blanched/Dull Wound Surrounding Tissue Appearance: Blanched/Dull Percent of Wound Bed Granulated/Red: 0 Percent of Wound Bed Slough/Yellow: 10 Percent of Wound Bed Eschar/Black: 90 Wound Length: 0.2 in Wound Width: 0.24 in Wound Drainage Amount: None Wound Drainage Odor: None/Absent Wound Topical Solution/Irrigant: Other (Anasept) Wound Debridement Method: Other (Debrisoft sponge) Wound Debridement Result: Necrotic Remains Wound Debridement Amount of Tissue Removed: None Circulation, Sensation, Motion Edema Degree: 3+ (2+ on left, 3+ on right) Peripheral Pulse Strength: Normal Skin Temperature: Warm Skin Color: Other (red) Additional Other Comments: bilateral anterior tib fib pink\red in color with small fluid filled blisters that are soft JAGDEEP Comment:: Machine is out of service for re-calibration. Pain Pain Level: 2 Pain Scale Used: Adult Pain Description: Burning Wound Summary Wound Summary: Edema apparently has declined significantly since admission. Shins remain red with small fluid filled blisters. Blisters are soft and palpable. No weeping noted. Pt encouraged to keep legs elevated while in the recliner as well as on two pillows while in bed with leg portion of the bed raised. Instructed to limit his salt intake. Verbalized understanding of instructions. Photo Photo: Treatment/Dressing Change Topicals/Ointments: Anasept Gel Cleanse With: Anasept Dressing Types: Mepilex w/Border Dressing Comment: Wrap legs from base of the toes to below the knee with caterina wraps. Nutrition Education Reviewed Nutrition Education: Yes Recomendation Recomendation:: 1. Clean legs and wounds with Anasept cleanser. 2. Pat dry. 3. Apply 1/8 inch thick Anasept gel to wounds. 4. Cover with Mepelix dressings. 5. Change every 3 days and prn 6. Wrap with caterina wraps started at the toes up to the knees with 50% overlap and 50% stretch. Reapply wraps as needed. Keep legs elevated while in recliner and while in bed using at least 2 pillows length winn so that there is support under the knees. Physcian/Nurse Practioner Notified: Yes Referrals: Other (Requested podiatry consult for right great toe necrotic area. Elementary School Tutor is apparently on leave currently. ) Treatment Time Time Total Time Spent with Patient: 60 minutes
[2023-10-06] MEDS: Tamsulosin 0.4 MG CAPCR PO (19:32)
[2023-10-06] MEDS: Mirtazapine 15 MG TAB PO (19:32)
[2023-10-06] MEDS: rOPINIRole 1 MG TAB 1.5 MG PO (21:19)
[2023-10-06] MEDS: Melatonin 3 MG TAB PO (22:48)
[2023-10-07] VITALS (19 sets, daily range): BP systolic 103–155; BP diastolic 33–87; PULSE 52–79; RESP 5–20; TEMP 35.7–36.5; O2SAT 89–98
[2023-10-07] MEDS: diphenhydrAMINE 50 MG/ML VIAL IM/IVP (01:04)
[2023-10-07] MEDS: oxyCODONE 10 MG TAB PO (01:43)
[2023-10-07] MEDS: Albuterol/Ipratropium 3 ML UPD VIAL UPD ×4 (05:56→23:32)
[2023-10-07] MEDS: Heparin 5,000 UNITS/ML VIAL 5000 UNITS SC ×2 (05:57→18:19)
[2023-10-07] MEDS: Polyethylene Glycol 3350 17 GM PACKET PO ×2 (06:12→20:57)
[2023-10-07 07:24] LABS: Anion Gap 7.5 mmol/L (3-11); BUN 32 mg/dL (7-18); CO2 33.5 mmol/L (21.0-32.0); CREATININE 1.3 mg/dL (0.70-1.30); Calcium 9.4 mg/dL (8.5-10.1); Chloride 96 mmol/L (98-107); Glucose 140 mg/dL (74-106); Magnesium 2.1 mg/dL (1.8-2.4); Potassium 3.8 mmol/L (3.5-5.1); Sodium 137 mmol/L (136-145)
[2023-10-07] MEDS: Furosemide 40 MG/4 ML VIAL IVP (07:48)
[2023-10-07] MEDS: Normal Saline Flush 10 ML SYR IVP ×2 (07:48→20:59)
[2023-10-07] MEDS: Losartan 50 MG TAB 75 MG PO (07:49)
[2023-10-07] MEDS: Gabapentin 600 MG TAB PO ×4 (07:50→20:57)
[2023-10-07] MEDS: Pantoprazole 40 MG TABCR PO (07:50)
[2023-10-07] MEDS: Spironolactone 50 MG TAB PO (07:51)
[2023-10-07] MEDS: hydroCHLOROthiazide 25 MG TAB PO (07:51)
[2023-10-07] MEDS: predniSONE 20 MG TAB 40 MG PO (07:51)
[2023-10-07] MEDS: Empaglifozin 10 MG TAB PO (07:52)
[2023-10-07] MEDS: Metoprolol CR 100 MG TABCR PO (07:52)
[2023-10-07] MEDS: Tiotropium Bromide-Respimat 10 PUFF INH 2 PUFF IH (08:29)
[2023-10-07] MEDS: Budesonide/Formoterol 80/4.5 6.9 GM 60 PUFF INH IH ×2 (08:29→20:12)
[2023-10-07] MEDS: Albuterol 2.5 MG/3 ML INH SOLN VIAL UPD ×2 (08:29→20:08)
--- NOTE | 2023-10-07 10:00 | PT.INTREAT ---
PT Notes Visit Reasons: Acute Hypoxic Respiratory Failure;CHF,Bronchiectas Inpatient Physical Therapy Treatment Note [facility] Date: 10/07/23 SUBJECTIVE: [place] states that he will do what he can today. He reports feeling better today compared to yesterday. He reports just getting back into his recliner from toilet and getting cleaned up. He c/o dizziness when on his feet. OBJECTIVE: []? VITALS: ? monitored by nursing ? Therapeutic Exercises ([id number]): Direct one-on-one instruction in therapeutic exercises to develop strength, endurance, range of motion and flexibility. ? Exercises ?Seated: AP, SLR, hip ab/add, marching, LAQ x10 each. mini squats x3. Ambulation ? Assistive Device: FWW? Weight bearing: full Assist: SBA ? Distance:?stood in place x 1min. Increased c/o dizziness as well as significant pain/crepitus right knee.? ASSESSMENT:?pt fatigued as he has had a busy am. More active today vs yesterday. No pain with sitting ex in knee, only wt bearing. PLAN: will continue to work on strength and improving his functional mobility to tolerance. TREATMENT CODE/TIME: 18 min. [id number]
[2023-10-07] MEDS: Bisacodyl 10 MG SUPP PR (11:41)
[2023-10-07] MEDS: Insulin Aspart 300 UNITS/3 ML PEN SC ×3 (12:53→20:59)
[2023-10-07] MEDS: Milk of Magnesia 30 ML CUP PO (13:43)
[2023-10-07] MEDS: Docusate Sodium 100 MG CAP PO ×2 (13:43→20:58)
--- NOTE | 2023-10-07 14:10 | W.PM.PROGNOT ---
Date of Service Date of service: 10/07/23 Time of Service: 14:10 Assessment and Plan Assessment and plan (1) (HFpEF) heart failure with preserved ejection fraction: Status: Acute Assessment and plan: In acute exacerbation. Change IV Lasix to oral Lasix at 40 mg twice a day, adjust losartan, adjust spironolactone, consider transition over to Entresto. Monitor daily weights Professional time evaluating the patient, putting in orders, documenting his care and discussion of his care w/ his providers took 35 minutes Qualifiers: Heart failure chronicity: acute on chronic Qualified Code(s): I50.33 - Acute on chronic diastolic (congestive) heart failure (2) Pulmonary hypertension: Status: Acute Assessment and plan: RVSP on echo in 08/20 was 48 mmHg. As above (3) Pleural effusion: Status: Acute Assessment and plan: As above The size of the effusion is stable. Consider thoracenthesis. Will obtain follow-up chest x-ray to assess pleural effusion.. Consider thoracic ultrasound. (4) Bronchiectasis: Status: Chronic Assessment and plan: In acute exacerbation. Procalcitonin negative. Not starting abx. Encourage pulmonary toilet. Started on prednisone. Qualifiers: Bronchiectasis type: uncomplicated Qualified Code(s): J47.9 - Bronchiectasis, uncomplicated (5) Restrictive lung disease: Status: Chronic Assessment and plan: Encourage pulmonary toilet (6) Hypoxemia: Status: Acute Assessment and plan: Due to all of the above Now off oxygen and on room air. SpO2 90 to 94%. (7) DVT prophylaxis: Status: Acute Assessment and plan: Sc heparin (8) Discharge planning issues: Status: Acute Assessment and plan: Full code (changed code status from DNR/DNI to full code in the ED). C/s PT and palliative care I suspect patient may need short-term SNF stay to regain his strength and mobility Subjective Subjective Interval history since last seen: Patient's breathing has improved. He has diuresed cumulative net negative 9700 mL and negative 2600 since yesterday. His weight is down to 101.1 kg from 112.3 kg on admission. At this point I am changing his iv lasix to oral lasix and continue his spironolactone. However he is now constipated and has abdominal bloating but not in actual pain and no vomiting. I will check abdominal upright and flat plate and get follow up CXR. He is already on stool softeners, miralax and I have added MOM. I will increase his Senna and his Miralax and order an enema after I check his abdominal films. Exam Narrative Exam Narrative: Patient sitting up in his chair he is alert and oriented in no acute distress although he does feel abdominal discomfort and bloating. Lungs are clear to auscultation Heart is irregularly irregular at a controlled rate Abdomen is distended he has active bowel sounds however abdomen is soft there is no guarding or rebound tenderness Lower extremities without edema Garcia draining clear yellow urine Objective Last Vital Signs Temp 35.9 C L 10/07/23 11:12 Pulse 68 10/07/23 12:29 Resp 20 10/07/23 12:29 BP 137/81 10/07/23 11:12 Pulse Ox 90 L 10/07/23 12:24 Laboratory Results - last 24 hr 10/07/23 06:44 Sodium 137 Potassium 3.8 Chloride 96 L Carbon Dioxide 33.5 H Anion Gap 7.5 BUN 32 H Creatinine 1.3 Est GFR (CKD-EPI 2020) 53.50 Glucose 140 H Calcium 9.4 Magnesium 2.1 Time Spent with Patient Time Spent with Patient: 35-49 minutes Time was spent: preparing to see the patient(eg.review tests), ordering medications,tests, procedures, referring, communicating with other health primary care md, indepentently interpreting results, counseling the patient and care coordination
--- NOTE | 2023-10-07 15:09 | DI.RAD_ITS ---
Exam(s) XR CHEST 2V PA LATERAL EXAM: XR CHEST 2V PA LATERAL CLINICAL HISTORY: CHF, pleural effusion TECHNIQUE: 2D digital imaging was performed. COMPARISON: CR XR CHEST 1V IN DI DEPT from 05/03/2023 CR XR CHEST 2V PA LATERAL from 08/03/2023 CR XR PORTABLE CHEST AP from 10/05/2023 FINDINGS: Exam limited by poor pulmonary inflation. HEART: Enlarged, unchanged. Aorta: Not dilated. PULMONARY VASCULATURE: Normal. LUNGS: Clear. PLEURAL SPACE: No change in moderate right pleural effusion. BONE:Unremarkable for age. Soft tissues: Unremarkable. IMPRESSION: Stable right pleural effusion. DATA REPOSITORY: RADIATION DOSE DELIVERED:
--- NOTE | 2023-10-07 15:10 | DI.RAD_ITS ---
Exam(s) XR ABDOMEN FLAT PLATE EXAM: 2D digital imaging was performed. CLINICAL HISTORY: abdominal distension. COMPARISON: No exams were available for comparison TECHNIQUE: Upright view of the abdomen performed. FINDINGS: Limited exam. Pelvis not fully included on the exam. BOWEL GAS PATTERN: Nondistended. CALCIFICATIONS: No radiopaque calcifications. OSSEOUS STRUCTURES: Normal prominent osteophytes and advanced degenerative changes in the spine. Soft tissues: Metallic coils seen mid abdomen. Small right pleural effusion. No free air visible. IMPRESSION: 1. Nonobstructive bowel gas pattern. 2. Small right pleural effusion DATA REPOSITORY: RADIATION DOSE DELIVERED:
[2023-10-07] MEDS: Furosemide 40 MG TAB PO (15:15)
--- NOTE | 2023-10-07 15:47 | DI.VRAD_ITS ---
PROCEDURE INFORMATION: Exam: XR Chest Exam date and time: 10/07/2023 2:54 PM Age: 88 years old Clinical indication: Other: Chf, pleural effusion TECHNIQUE: Imaging protocol: Radiologic exam of the chest. Views: 2 views. COMPARISON: CR XR PORTABLE CHEST AP 10/05/2023 10:17 AM FINDINGS: Lungs: No new consolidation. Pleural spaces: Small to moderate size right pleural effusion is unchanged. Heart/Mediastinum: Stable Bones/joints: No significant abnormality IMPRESSION: Stable right pleural effusion Dictated and Authenticated by: Ralph Gonzales MD. Ordering:.[facility] Linsey Romero MD
--- NOTE | 2023-10-07 15:48 | DI.VRAD_ITS ---
PROCEDURE INFORMATION: Exam: XR Abdomen Exam date and time: 10/07/2023 2:56 PM Age: 88 years old Clinical indication: Other: Abdominal distension TECHNIQUE: Imaging protocol: Radiologic exam of the abdomen. Views: Frontal supine view of the abdomen. 1 View. COMPARISON: CT ABDOMEN PELVIS W 05/03/2023 9:36 AM FINDINGS: Gastrointestinal tract: Nonobstructive bowel-gas pattern. Intraperitoneal space: No obvious pneumoperitoneum. Bones/joints: Degenerative changes of the visualized spine. IMPRESSION: No acute findings Dictated and Authenticated by: Ralph Gonzales MD. Ordering:.[facility] Linsey Romero MD
[2023-10-07] MEDS: Tamsulosin 0.4 MG CAPCR PO (20:58)
[2023-10-07] MEDS: rOPINIRole 1 MG TAB 1.5 MG PO (20:58)
[2023-10-07] MEDS: Mirtazapine 15 MG TAB PO (20:58)
[2023-10-07] MEDS: Acetaminophen 325 MG TAB PO (20:58)
[2023-10-07] MEDS: Senna TAB 1 TAB PO (21:12)
[2023-10-07] MEDS: Melatonin 3 MG TAB PO (21:12)
[2023-10-08] VITALS (13 sets, daily range): BP systolic 116–146; BP diastolic 63–89; PULSE 56–80; RESP 2–18; TEMP 36.1–37; O2SAT 91–97
[2023-10-08] MEDS: oxyCODONE 10 MG TAB PO ×4 (00:01→23:02)
[2023-10-08] MEDS: Acetaminophen 325 MG TAB PO ×2 (04:13→20:44)
[2023-10-08] MEDS: Heparin 5,000 UNITS/ML VIAL 5000 UNITS SC ×2 (06:38→17:50)
[2023-10-08 06:54] LABS: Abs Immature Grans 0.02 10^3/uL (0.0-0.06); Absolute Basophil Count 0.02 10^3/uL (0.0-0.2); Absolute Eosinophil Count 0.04 10^3/uL (0.0-0.7); Absolute Lymphocyte Count 1.32 10^3/uL (1.2-3.4); Absolute Monocyte Count 0.82 10^3/uL (0.1-0.8); Absolute Neutrophil Count 4.98 10^3/uL (1.2-6.7); Basophils % 0.3; Eosinophils % 0.6; HCT 35.5 % (40.0-50.0); HGB 11.2 g/dL (13.5-17.5); Immature Grans % 0.3; Lymphocytes % 18.3; MCH 28.4 pg (27.0-33.0); MCHC 31.5 % (32.0-36.0); MCV 90 fL (80-95); MPV 10.2 fL (8.0-11.0); Monocytes % 11.4; Neutrophils % 69.1; Platelet Count 257 10^3/uL (130-400); RBC 3.95 10^6/uL (4.36-5.78); RDW 26.4 % (11.8-14.1); RDW-SD 82.3 fL
[2023-10-08 07:08] LABS: Anion Gap 5.9 mmol/L (3-11); Anisocytosis 2+; BUN 31 mg/dL (7-18); CO2 37.1 mmol/L (21.0-32.0); CREATININE 1.2 mg/dL (0.70-1.30); Calcium 9.5 mg/dL (8.5-10.1); Chloride 95 mmol/L (98-107); Diff Comment RBC Morph Reviewed; Estimated GFR 58.89 (mL/min/1.73m2); Glucose 111 mg/dL (74-106); Potassium 4.1 mmol/L (3.5-5.1); Sodium 138 mmol/L (136-145)
[2023-10-08 07:20] LABS: Iron 34 ug/dL (65-175); Total Iron Binding Capacity 318 ug/dL (250-450); Transferrin Sat 11 % (20-55)
[2023-10-08 07:40] LABS: Ferritin 99 ng/mL (26-388); Folate 10.3 ng/mL (8.6-20.0); Vitamin B12 558 pg/mL (193-986)
--- NOTE | 2023-10-08 07:48 | W.PALLCONSUL ---
Date of service: 10/08/23 Time of Service: 07:49 History of Present Illness History of Present Illness Chief Complaint: CODE STATUS confusion, CHF exacerbation. Narrative: Phoenix is an 88-year-old man who has a long history of pulmonary and cardiac problems. He was admitted for acute CHF exacerbation. He has known bronchiectasis and pulmonary hypertension. He has been treated with diuretics and pulmonary treatments and the aim of improving his status that he is able to go home. I did going to see him this morning. He states that he was quite sleepy. He did not understand what he meant about CODE STATUS. He says his helps him to make decisions. I contacted care management to let them know I would be back in the afternoon. Addendum: Initially thought to be going home today, but couldn't get a ride. Hospitalist asked about a Palliative visit. He didn't feel up to it today. Assessment and Plan Assessment and plan (1) Advance care planning: Status: Acute (2) Pulmonary hypertension: Status: Acute (3) (HFpEF) heart failure with preserved ejection fraction: Status: Acute Qualifiers: Heart failure chronicity: acute on chronic Qualified Code(s): I50.33 - Acute on chronic diastolic (congestive) heart failure (4) Congestive heart failure: Status: Chronic (5) Palliative care encounter: Status: Acute Assessment and plan: Short discussion with Phoenix about his CODE STATUS. He was quite sleepy. He does not have any memory of being asked about this in the ER. He does want to include his and discussion. I will make contact with her and also let care management know that I will be back sometime between 4 and 6 this afternoon. If for some reason he is discharged prior to this time, we will meet up with him outpatient Review of Systems Narrative: He does feel that his breathing is better. He is not able to ambulate very well. He does not have any chest pain at this time. PFSH All Active Problems (Updated 10/08/23 @ 10:22 by Pili Coreas MD, [place]) Palliative care encounter (Acute) Advance care planning (Acute) Discharge planning issues (Acute) DVT prophylaxis (Acute) Pleural effusion (Acute) Pulmonary hypertension (Acute) (HFpEF) heart failure with preserved ejection fraction (Acute) Hypoxemia (Acute) Congestive heart failure (Chronic) Reactive airway disease (Acute) Restless leg syndrome (Acute) Cellulitis of lower extremity (Acute) Constipation (Acute) Decubital ulcer (Acute) Chronic anemia (Acute) 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 exposure (Acute) Respiratory failure with hypoxia (Acute) Bronchiectasis (Chronic) Nocturnal hypoxia (Acute) Restrictive lung disease (Chronic) Foreign body in bladder and urethra (Acute) Dislodged Garcia catheter (Acute) Hematuria (Acute) Acute UTI (Acute) Abdominal pain (Acute) Diabetes mellitus (Chronic) BPH (benign prostatic hyperplasia) (Chronic) Essential hypertension (Acute) Lung infiltrate (Acute) UTI (urinary tract infection) (Acute) Spondylosis of lumbosacral region without myelopathy or radiculopathy (Chronic) Herniated lumbar disc without myelopathy (Chronic) Medical History Obesity Hypertension GERD (gastroesophageal reflux disease) Spinal stenosis Neuropathy Osteoarthritis Hemorrhoid Diverticula of colon GI bleed Surgical History spinal stenosis (~2005) L foot drop result; L4 laminectomy and L4-5 R discectomy, Dr Campbell; second procedure at [place], [place] approx 02/2017 L1-L2 Laminectomy Dr. Cortes [facility] [place] Total replacement of hip (~1999) Right hip, later revised in 2005 left side 2006 Rotator Cuff Repair (~1996) Right Repair of inguinal hernia (08/31/11) Right sided with orchiectomy Endoscopic Carpal Tunnel release (05/04/15) Right by Dr. Ayala Extraction of cataract (02/15/16) [place] R with IOL; and L as well, Dr. Dickinson in [place] Family History Mother , CVA at age 85. Diabetes age 50 Essential hypertension Stroke Uterine cancer Father , Colon CA at age 87. Colon cancer Sister Breast cancer Sister Ovarian cancer Sister Ovarian cancer Sister No problems noted. Sister No problems noted. Sister No problems noted. Sister No problems noted. Sister No problems noted. Brother Diabetes Brother No problems noted. Brother No problems noted. Social History Smoking/Tobacco Use Status: Never Smoking risk assessment performed?: Yes Alcohol Intake: never Drug use: Never Substance use type: does not use Housing: house Do you feel safe at home: Yes Do you feel safe in your relationship?: Yes Additional Social history: lives with . Exam Const General: frail appearing Nutritional Appearance: obese Orientation: awake Limitations: other limitations Eyes General: appearance normal, both eyes and all related structures Neck Neck: supple Thyroid: other Carotids: normal carotid upstroke Chest Chest: normal inspection of the chest Resp Effort & Inspection: abnormal respiratory pattern Auscultation: diminished lung sounds and rales Cardio Rate: regular rate Heart Sounds: other (distant heart sounds) GI Inspection: obesity Auscultation: normal bowel sounds Back/Spine/Pelvis Back: no CVA tenderness Extrem General: no pedal edema (support in place, caterina bandages) Psych Mental Status: other (sleepy) Mood: other (sleepy) Results Last Vital Signs Temp 98.1 F 10/08/23 07:40 Pulse 59 L 10/08/23 07:40 Resp 18 10/08/23 07:40 BP 135/68 10/08/23 07:40 Pulse Ox 96 10/08/23 07:40 Labs 10/08/23 06:35 10/08/23 06:35 Labs: Laboratory Results - last 24 hr 10/08/23 06:35 WBC 7.20 RBC 3.95 L Hgb 11.2 L Hct 35.5 L MCV 90 MCH 28.4 MCHC 31.5 L RDW 26.4 H Plt Count 257 MPV 10.2 Immature Gran % 0.3 Neutrophils % 69.1 Lymphocytes % 18.3 Monocytes % 11.4 Eosinophils % 0.6 Basophils % 0.3 Nucleated RBC % 0.0 Absolute Neutrophils 4.98 Absolute Lymphocytes 1.32 Absolute Monocytes 0.82 H Absolute Eosinophils 0.04 Absolute Basophils 0.02 RBC Morphology See Below Anisocytosis 2+ Sodium 138 Potassium 4.1 Chloride 95 L Carbon Dioxide 37.1 H Anion Gap 5.9 BUN 31 H Creatinine 1.2 Est GFR (CKD-EPI 2020) 58.89 Glucose 111 H Calcium 9.5 Iron 34 L TIBC 318 Transferrin % Sat 11 L Ferritin 99 Vitamin B12 558 Folate 10.3 Imaging Additional studies: CXR FINDINGS: Lungs: No new consolidation. Pleural spaces: Small to moderate size right pleural effusion is unchanged. Heart/Mediastinum: Stable Bones/joints: No significant abnormality IMPRESSION: Stable right pleural effusion
[2023-10-08 07:58] LABS: NT-proBNP 10968 pg/mL (<300)
[2023-10-08] MEDS: Albuterol 2.5 MG/3 ML INH SOLN VIAL UPD ×2 (08:02→20:09)
[2023-10-08] MEDS: Tiotropium Bromide-Respimat 10 PUFF INH 2 PUFF IH (08:02)
[2023-10-08] MEDS: Budesonide/Formoterol 80/4.5 6.9 GM 60 PUFF INH IH ×2 (08:03→20:09)
[2023-10-08] MEDS: Gabapentin 600 MG TAB PO ×4 (08:23→20:43)
[2023-10-08] MEDS: Furosemide 40 MG TAB PO ×2 (08:24→16:38)
[2023-10-08] MEDS: Docusate Sodium 100 MG CAP PO ×3 (08:24→20:43)
[2023-10-08] MEDS: Spironolactone 50 MG TAB PO (08:24)
[2023-10-08] MEDS: Pantoprazole 40 MG TABCR PO (08:24)
[2023-10-08] MEDS: predniSONE 20 MG TAB 40 MG PO (08:24)
[2023-10-08] MEDS: hydroCHLOROthiazide 25 MG TAB PO (08:24)
[2023-10-08] MEDS: Empaglifozin 10 MG TAB PO (08:25)
[2023-10-08] MEDS: Milk of Magnesia 30 ML CUP PO (08:25)
[2023-10-08] MEDS: Polyethylene Glycol 3350 17 GM PACKET PO ×2 (08:25→20:42)
[2023-10-08] MEDS: Losartan 50 MG TAB 75 MG PO (08:25)
[2023-10-08] MEDS: Normal Saline Flush 10 ML SYR IVP ×2 (08:26→20:44)
--- NOTE | 2023-10-08 09:50 | PDOC.CMPRO ---
Date of service: 10/08/23 Time of Service: 10:01 Care Management Progress Note Progress Note Text Progress Note Text: S/O: Jamie was sitting up in his chair when CM met with him. He stated that he feels that he is making slow progression toward improvement. He stated that he is working with the provider on his constipation; CM noted that per report, he had three BM's yesterday, and he stated that he did, but they were small. He reported that he is doing ok with PT, and that per PT, today he did better than yesterday. Per report, PT is recommending HH PT upon discharge. CM asked if he has current HH services; he stated that they have been to his home for an assessment, but they are not there regularly. CM will contact [facility] to inform them of his potential discharge home with new vs resumption of HH services. CM will continue to follow. A: Jamie is an 88 year old male admitted to [facility] on 10/05/23 for acute hypoxic respiratory failure, CHF. P: Jamie will return home when ready per MD. He will follow up with his PCP and plan of care as prescribed. He will transport via private vehicle with his , Aydee. CM will continue to follow.
--- NOTE | 2023-10-08 11:26 | PTTR_ITS ---
PT Notes Visit Reasons: Acute Hypoxic Respiratory Failure;CHF,Bronchiectas Inpatient Physical Therapy Treatment Note Date: 10/08/2023 Precautions: Fall. Standard. Activity as tolerated Subjective: Feels better compared to start day of admission. Willing to walk as afr as he is able today, wanted to use toilet first. Objective: General Observation: Resting in bed. Garcia catheter in place. IV in RUE. Scabbed areas in R anterior lovell noted. Skin to B legs discolored. Mental Status: A&Ox3 Pain: As above Bed Mobility/Transfers: Moderate verbal cueing provided for movement sequence, posture, and use of B UE for support to reduce fall risk and pain report. sit-supine: minimal assist sit to stand: minimal assist bed to chair: minimal assist Gait: 15 feet to toilet, 15 feet from toilet to chair, 30 feet to wall outside room using FWW. Minimal cues provided for improved posture, walker management, maximizing extension on either knee prior to advancing the other LE, and safety startegies f=to reduce falls and minimize pain. DF in B sides decreased. Balance: Static Sitting: Good Dynamic Sitting: Good Static Standing: Fair Dynamic Standing: Poor ASSESSMENT: Functional mobility independence and activity tolerance improving. Pain level much decreased as Nurse Shylin pre-medicated patient prior to PT visit. Walking stability improved compared to last week. Provided assiatnce with pericare after bowel movement as patient is unable to independently do so. Plan of Care/Treatment Plan: 1-2x/day, 7 days/week x 1 week. Plan of care has been reviewed with the [facility] providing the service under Physical Therapy direction. Initiate Physical Therapy intervention for strengthening, bed mobility, transfers, gait, stairs, balance training, use of assistive device. DISCHARGE RECOMMENDATIONS: Home with services : PT TREATMENT CODE/TIME: 65898 x 34 minutes for 2 units beginning at 11:26 AM
[2023-10-08] MEDS: Insulin Aspart 300 UNITS/3 ML PEN SC ×3 (12:03→20:43)
[2023-10-08] MEDS: Albuterol/Ipratropium 3 ML UPD VIAL UPD ×2 (12:52→17:54)
--- NOTE | 2023-10-08 14:18 | W.PM.PROGNOT ---
Date of Service Date of service: 10/08/23 Time of Service: 14:19 Assessment and Plan Assessment and plan (1) (HFpEF) heart failure with preserved ejection fraction: Status: Acute Assessment and plan: In acute exacerbation. Will diurese, while monitoring I/Os and daily weights. Caban for strict I&O - very swollen scrotum C/O pain at insertion - UA also ordered Qualifiers: Heart failure chronicity: acute on chronic Qualified Code(s): I50.33 - Acute on chronic diastolic (congestive) heart failure (2) Pulmonary hypertension: Status: Acute Assessment and plan: RVSP on echo in 08/20 was 48 mmHg. As above (3) Pleural effusion: Status: Acute Assessment and plan: As above The size of the effusion is stable. No horacenthesis. (4) Bronchiectasis: Status: Chronic Assessment and plan: Encourage pulmonary toilet. Continue on prednisone. Qualifiers: Bronchiectasis type: uncomplicated Qualified Code(s): J47.9 - Bronchiectasis, uncomplicated (5) Restrictive lung disease: Status: Chronic Assessment and plan: Encourage pulmonary toilet (6) Hypoxemia: Status: Acute Assessment and plan: Due to all of the above As above (7) DVT prophylaxis: Status: Acute Assessment and plan: Sc heparin (8) Discharge planning issues: Status: Acute Assessment and plan: Full code (changed code status from DNR/DNI to full code in the ED). C/s PT and palliative care - out patient Subjective Subjective Patient reports: no new complaints, feels better, tolerating a regular diet and afebrile; denies diarrhea or fever Exam Narrative Exam Narrative: General: Elderly male who is A&Ox3, appears comfortable in bed, semi fowlers, RA Neurological: A&Ox3, no focal deficits Psychiatric: appropriate speech pattern/content Skin: distal BLE w/ mild erythema and warmth, symmetric HEENT: Atraumatic, normocephalic, EOMI, dry MM, clear oropharynx, no submandibular or cervical lymphadenopathy, no goiter or JVD Cardiovascular: RRR, no m/r/g Lungs: Diminished breath sounds B Gastrointestinal: soft, nontender, nondistended Genitourinary: has a caban catheter; scrotal edema Extremities: woody edema BLEs, see skin exam above, +1 pedal pulse in LLE, unable to palpate pedal pulse RLE, no lesions on B feet; L foot 1st digit with onychomycosis Objective Last Vital Signs Temp 36.6 C 10/08/23 11:51 Pulse 67 10/08/23 12:59 Resp 16 10/08/23 12:52 BP 136/89 10/08/23 11:51 Pulse Ox 92 10/08/23 12:52 Laboratory Results - last 24 hr 10/08/23 06:35 WBC 7.20 RBC 3.95 L Hgb 11.2 L Hct 35.5 L MCV 90 MCH 28.4 MCHC 31.5 L RDW 26.4 H Plt Count 257 MPV 10.2 Immature Gran % 0.3 Neutrophils % 69.1 Lymphocytes % 18.3 Monocytes % 11.4 Eosinophils % 0.6 Basophils % 0.3 Nucleated RBC % 0.0 Absolute Neutrophils 4.98 Absolute Lymphocytes 1.32 Absolute Monocytes 0.82 H Absolute Eosinophils 0.04 Absolute Basophils 0.02 RBC Morphology See Below Anisocytosis 2+ Sodium 138 Potassium 4.1 Chloride 95 L Carbon Dioxide 37.1 H Anion Gap 5.9 BUN 31 H Creatinine 1.2 Est GFR (CKD-EPI 2020) 58.89 Glucose 111 H Calcium 9.5 Iron 34 L TIBC 318 Transferrin % Sat 11 L Ferritin 99 NT-Pro-B Natriuret Pep 35791 H Vitamin B12 558 Folate 10.3 Time Spent with Patient Time Spent with Patient: 25-34 minutes Time was spent: preparing to see the patient(eg.review tests), ordering medications,tests, procedures, indepentently interpreting results and care coordination
--- NOTE | 2023-10-08 14:53 | PT.INTREAT ---
Date of service: 10/08/23 Time of Service: 14:50 PT Notes Visit Reasons: Acute Hypoxic Respiratory Failure;CHF,Bronchiectas Inpatient Physical Therapy Treatment Note [facility] Date: 10/08/23 PRECAUTIONS: Fall, standard, activity as tolerated. SUBJECTIVE: Patient reports feeling not too good. States that he has already been walking, doesn't need to go again. Later reports pain and swelling in testicles making walking painful. Also reports that his catheter doesn't feel like it's in right. Reports pain and a feeling of needing to pee, suspects that it is infected. Charge nurse Mia informed. OBJECTIVE: Sitting up in recliner. Garcia catheter in place. Agreeable to therapy.? PAIN: yes, in scrotum VITALS: monitored by nursing staff ? BED MOBILITY/TRANSFERS? Rolling L/R: not assessed Supine-sit: not assessed ? Sit-supine: not assessed ? Sit-stand: CGA ? Stand-sit: CGA ? Bed-Chair: CGA ? Chair-bed: CGA ? Therapeutic Exercises ([id number]): Direct one-on-one instruction in therapeutic exercises to develop strength, endurance, range of motion and flexibility. Ambulation ? Assistive Device: FWW? Weight bearing: full Assist: CGA ? Distance:? 40 feet ? Deviation: reduced song, extreme wide YUDY, reduced step height, reduced step length, report of pain with ambulation. ? Provided skilled instruction in proper exercise performance Provided skilled manual cues to facilitate proper muscle recruitment and/or form. ASSESSMENT:? Patient tolerates therapy, no SOB, no LOB, no report of dizziness. CAREN Bellamy comes to see patient at end of treatment session to evaluate catheter placement. PLAN: Continue global strengthening per plan of care until patient is medically cleared for discharge. TREATMENT CODE/TIME: 10 minutes beginning at 14:40
[2023-10-08 16:51] LABS: Bilirubin Negative (Negative); Blood Moderate (Negative); Clarity Clear (Clear); Glucose 500 mg/dL (Negative); Ketones Negative (Negative); Leukocyte Esterase Small (Negative); Nitrite Negative (Negative); Urobilinogen 0.2 mg/dL (Up to 0.2); pH 7.5 (5-8)
[2023-10-08 17:00] LABS: Bacteria Rare HPF (Negative); C & S Indicated? Yes; Casts Negative LPF (Negative); Crystals Negative HPF (Negative); Epithelial Cells Rare HPF (Negative); Mucus Negative (Negative)
[2023-10-08] MEDS: Tamsulosin 0.4 MG CAPCR PO (20:43)
[2023-10-08] MEDS: Senna TAB 1 TAB PO (20:43)
[2023-10-08] MEDS: Mirtazapine 15 MG TAB PO (20:44)
[2023-10-08] MEDS: Melatonin 3 MG TAB PO (20:44)
[2023-10-08] MEDS: rOPINIRole 1 MG TAB 1.5 MG PO (20:44)
[2023-10-09] VITALS (11 sets, daily range): BP systolic 118–144; BP diastolic 58–77; PULSE 61–81; RESP 2–18; TEMP 36.2–37; O2SAT 91–97
[2023-10-09] MEDS: Albuterol/Ipratropium 3 ML UPD VIAL UPD ×2 (00:06→11:47)
--- NOTE | 2023-10-09 06:00 | RT.EKG_ITS ---
APPROVED REPORT Exam: Resting ECG Reason for Exam: Rhythmn change Patient Location: I HR:71 bpm ECG Measurements Heart Rate 71 AXIS IL [id number] P [id number] QRSd 130 QRS 33 QT 422 T -57 QTc 459 Conclusion Atrial fibrillation...? atrial activity Right bundle branch block...QRSd>120, terminal axis(90,270) Repol abnrm suggests ischemia, diffuse leads...ST-T neg, ant/lat/inf Artifact in lead(s) I,II,III,aVR,aVF,V1,V2,V3,V4,V5,V6 I have reviewed and interpreted ECG and agree with software generated interpretation.
[2023-10-09] MEDS: Heparin 5,000 UNITS/ML VIAL 5000 UNITS SC (06:44)
[2023-10-09] MEDS: Bisacodyl 10 MG SUPP PR (06:45)
[2023-10-09 07:01] LABS: Abs Immature Grans 0.03 10^3/uL (0.0-0.06); Absolute Basophil Count 0.02 10^3/uL (0.0-0.2); Absolute Eosinophil Count 0.08 10^3/uL (0.0-0.7); Absolute Lymphocyte Count 1.53 10^3/uL (1.2-3.4); Absolute Monocyte Count 0.96 10^3/uL (0.1-0.8); Absolute Neutrophil Count 5.79 10^3/uL (1.2-6.7); Basophils % 0.2; HCT 35.8 % (40.0-50.0); HGB 11.5 g/dL (13.5-17.5); Immature Grans % 0.4; Lymphocytes % 18.2; MCH 28.6 pg (27.0-33.0); MCHC 32.1 % (32.0-36.0); MCV 89 fL (80-95); MPV 10.1 fL (8.0-11.0); Monocytes % 11.4; Neutrophils % 68.8; Platelet Count 242 10^3/uL (130-400); RBC 4.02 10^6/uL (4.36-5.78); RDW 26.3 % (11.8-14.1); RDW-SD 80.9 fL; WBC 8.41 10^3/uL (4.4-10.8)
[2023-10-09 07:23] LABS: Anion Gap 4.5 mmol/L (3-11); BUN 27 mg/dL (7-18); CO2 36.5 mmol/L (21.0-32.0); CREATININE 1.2 mg/dL (0.70-1.30); Calcium 9.3 mg/dL (8.5-10.1); Chloride 97 mmol/L (98-107); Estimated GFR 58.89 (mL/min/1.73m2); Glucose 111 mg/dL (74-106); Magnesium 2.4 mg/dL (1.8-2.4); Potassium 4.4 mmol/L (3.5-5.1); Sodium 138 mmol/L (136-145)
--- NOTE | 2023-10-09 07:46 | UCONE_ITS ---
Date of service: 10/10/23 Time of Service: 11:00 History of Present Illness History of Present Illness Chief Complaint: Garcia catheter placement Narrative: This is an 88-year-old who has only ever been seen me for acute catheter related problem. Please see my last consult note from 07/2023. I initially saw him in 2020 when he had a retained catheter fragment. It is not clear to me why that catheter was initially placed. I wound up doing a cystoscopy in the office to remove the catheter fragment. I was then asked to place a catheter back in July when the patient was admitted with fluid overload and needed to be diuresed. As part of his fluid overload, he had lower extremity and scrotal edema. The staff was not able to place his catheter. I needed to manually compress the edematous foreskin to be able to expose the glans and place the catheter. He is again admitted with fluid overload, although the patient tells me he is not actually certain why he is in the hospital. When he came into the emergency department, a Garcia catheter was placed. Diuresis was begun. Last evening, the catheter became quite uncomfortable and was removed. Once the catheter was removed, the patient voided 500 cc, but his bladder scan still showed about 300 cc in the bladder. The nursing staff last evening was able to replace his catheter. The patient tells me that prior to the admission, he was having urinary hesitancy. He did not have any episodes of complete urinary retention. He was not having any incontinence, dysuria or gross hematuria. He was not sure if he was taking any medications for his prostate, but in reviewing his records, tamsulosin 0.4 mg daily has been on his medicine list dating back to 2019. It is not clear if he ever had an increase in dosage over time. He has no known history of urinary tract infections or hydronephrosis. 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 exposure (Acute) Respiratory failure with hypoxia (Acute) Bronchiectasis (Chronic) Nocturnal hypoxia (Acute) Foreign body in bladder and urethra (Acute) Dislodged Garcia catheter (Acute) Hematuria (Acute) Acute UTI (Acute) Abdominal pain (Acute) Diabetes mellitus (Chronic) BPH (benign prostatic hyperplasia) (Chronic) Essential hypertension (Acute) Lung infiltrate (Acute) UTI (urinary tract infection) (Acute) 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 Cortes [facility] [place] Total replacement of hip (~1999) Right hip, later revised in 2005 left side 2006 Rotator Cuff Repair (~1996) Right Repair of inguinal hernia (08/31/11) Right sided with orchiectomy Endoscopic Carpal Tunnel release (05/04/15) Right by Dr. Ayala Extraction of cataract (02/15/16) [place] R with IOL; and L as well, Dr. Dickinson in [place] Family History Mother , CVA at age 85. Diabetes age 50 Essential hypertension Stroke Uterine cancer Father , Colon CA at age 87. Colon cancer Sister Breast cancer Sister Ovarian cancer Sister Ovarian cancer Sister No problems noted. Sister No problems noted. Sister No problems noted. Sister No problems noted. Sister No problems noted. Brother Diabetes Brother No problems noted. Brother No problems noted. Social History Smoking/Tobacco Use Status: Never Smoking risk assessment performed?: Yes Alcohol Intake: never Drug use: Never Substance use type: does not use Housing: house Do you feel safe at home: Yes Do you feel safe in your relationship?: Yes Additional Social history: lives with . Exam Narrative Exam Narrative: He is cooperative. He does not appear septic or toxic His vital signs are documented elsewhere His abdomen is soft with edematous skin and soft tissue below the umbilicus. The scrotum and penile skin are edematous without any abrasions, erythema or ecchymosis There is a Garcia catheter in place that is draining clear urine Both lower extremities are edematous with chronic skin changes. Compression dressings are in place and were not removed for this exam He is awake and alert Results Last Vital Signs Temp 36.6 C 10/09/23 07:31 Pulse 69 10/09/23 07:31 Resp 16 10/09/23 07:31 BP 144/77 H 10/09/23 07:31 Pulse Ox 96 10/09/23 07:31 Labs 10/09/23 06:46 10/09/23 06:46 Labs: Laboratory Results - last 24 hr 10/08/23 10/08/23 10/09/23 06:35 16:36 06:46 WBC 8.41 RBC 4.02 L Hgb 11.5 L Hct 35.8 L MCV 89 MCH 28.6 MCHC 32.1 RDW 26.3 H Plt Count 242 MPV 10.1 Immature Gran % 0.4 Neutrophils % 68.8 Lymphocytes % 18.2 Monocytes % 11.4 Eosinophils % 1.0 Basophils % 0.2 Nucleated RBC % 0.0 Absolute Neutrophils 5.79 Absolute Lymphocytes 1.53 Absolute Monocytes 0.96 H Absolute Eosinophils 0.08 Absolute Basophils 0.02 Sodium 138 Potassium 4.4 Chloride 97 L Carbon Dioxide 36.5 H Anion Gap 4.5 BUN 27 H Creatinine 1.2 Est GFR (CKD-EPI 2020) 58.89 Glucose 111 H Calcium 9.3 Magnesium 2.4 NT-Pro-B Natriuret Pep 73936 H Urine Color Yellow Urine Clarity Clear Urine pH 7.5 Ur Specific [place] 1.020 Urine Protein Negative Urine Ketones Negative Urine Blood Moderate H Urine Nitrite Negative Urine Bilirubin Negative Urine Urobilinogen 0.2 Ur Leukocyte Esterase Small H Urine RBC 10-20 H Urine WBC 3-5 Ur Epithelial Cells Rare Urine Crystals Negative Urine Bacteria Rare Urine Casts Negative Urine Mucus Negative Ur Culture Indicated? Yes Urine Glucose 500 H
[2023-10-09] MEDS: Tiotropium Bromide-Respimat 10 PUFF INH 2 PUFF IH (07:52)
[2023-10-09] MEDS: Budesonide/Formoterol 80/4.5 6.9 GM 60 PUFF INH IH (07:52)
[2023-10-09] MEDS: Normal Saline Flush 10 ML SYR IVP ×2 (08:00→09:16)
[2023-10-09] MEDS: oxyCODONE 10 MG TAB PO ×2 (08:01→13:57)
[2023-10-09] MEDS: Losartan 50 MG TAB 75 MG PO (08:02)
[2023-10-09] MEDS: Metoprolol CR 100 MG TABCR PO (08:02)
[2023-10-09] MEDS: Pantoprazole 40 MG TABCR PO (08:02)
[2023-10-09] MEDS: Empaglifozin 10 MG TAB PO (08:03)
[2023-10-09] MEDS: predniSONE 20 MG TAB 40 MG PO (08:03)
[2023-10-09] MEDS: Spironolactone 50 MG TAB PO (08:03)
[2023-10-09] MEDS: Furosemide 40 MG TAB PO ×2 (08:03→15:05)
[2023-10-09] MEDS: hydroCHLOROthiazide 25 MG TAB PO (08:03)
[2023-10-09] MEDS: Docusate Sodium 100 MG CAP PO ×2 (08:03→13:57)
[2023-10-09] MEDS: Gabapentin 600 MG TAB PO ×3 (08:03→15:05)
[2023-10-09] MEDS: Polyethylene Glycol 3350 17 GM PACKET PO (08:20)
[2023-10-09] MEDS: Furosemide 40 MG/4 ML VIAL IVP (09:15)
[2023-10-09 10:03] LABS: Transferrin 245 mg/dL (201-352)
[2023-10-09] MEDS: Insulin Aspart 300 UNITS/3 ML PEN SC (11:35)
--- NOTE | 2023-10-09 14:30 | PT.INTREAT ---
Date of service: 10/09/23 Time of Service: 14:12 PT Notes Visit Reasons: Acute Hypoxic Respiratory Failure;CHF,Bronchiectas Inpatient Physical Therapy Treatment Note [facility] Date:10/09/23 PRECAUTIONS: Fall, standard, activity as tolerated. SUBJECTIVE: Patient reports that his knees are bothering today. OBJECTIVE: Sitting in recliner, agreeable to therapy. Respiratory therapist Tanya also present for exercise oximetry test. ? PAIN: yes, bilateral knees. VITALS: closely monitored by respiratory therapist Tanya? ? ? BED MOBILITY/TRANSFERS? Rolling L/R: not assessed Supine-sit: not assessed ? Sit-supine: not assessed ? Sit-stand: SBA ? Stand-sit: SBA ? Bed-Chair: CGA ? Chair-bed: CGA ? Therapeutic Exercises ([id number]): Direct one-on-one instruction in therapeutic exercises to develop strength, endurance, range of motion and flexibility. Ambulation ? Assistive Device: FWW? Weight bearing: full Assist: CGA? Distance:? 75 feet ? Deviation: Wide YUDY, reduced song, reduced step length, reduced step height, stiff back, inability to straighten knees ~30 degrees.? Provided skilled instruction in proper exercise performance Provided skilled manual cues to facilitate proper muscle recruitment and/or form. ASSESSMENT:? Patient tolerates therapy well, passes oximetry test according to Tanya PLAN: Continue global strengthening per plan of care until patient is medically ready for discharge. TREATMENT CODE/TIME: 17 minutes beginning at 14:12
--- NOTE | 2023-10-09 15:03 | DSE_ITS ---
Date of service: 10/09/23 Time of Service: 15:00 DS: Diagnosis Discharge Diagnosis (1) Difficult Garcia catheter placement: Status: Acute Discharge Plan Disposition Patient Disposition: Home W/Home Health Services Condition: Fair Discharge Details Reason For Visit: Acute Hypoxic Respiratory Failure;CHF,Bronchiectas Admit Date/Time: 10/05/23 11:44 Admit Provider: Yajaira Lockhart Attending Provider: Yajaira Lockhart Primary Care Provider: Yvonne Solorio Hospital Course Hospital Course: Mr Aguilar is an 88 year old male with PMHx of both restrictive lung disease and bronchiectasis, not on oxygen, as well as h/o NIDDM2, HTN, BPH, who was brought to [facility] ED 10/05 by ambulance for shortness of breath. On arrival to ED, per the ED provider, he was not as short of breath; however, he was found to be edematous in his LEs and scrotum.. His presentation in the ED was consistent with pulmonary edema as well as exacerbation of bronchiectasis. A nebulizer treatment relieved his chest tightness. Troponins were negative for ischemia, as was the EKG. Initially, he required 8L of O2 by NC, but was able to be successfu lly weaned down to RA with O2 sats in low 90s, though still mildly tachypneic. He tested negative for Flu/RSV/COVID-19. Hospitalist admission for further treatment of CHF and bronchiectasis was requested. Endorsed nonproductive cough and occasional dizziness, nausea, and palpitations which he calls anxiety. He denied fevers, runny nose, sore throat. He denied noncompliance with medications or dietary indiscretions. He endorsed orthopnea (has been elevating the head of bed at home) as well as PND. He also stated he snores and uses 2L of O2 by NC at night. Stated his lower extremities have been pink ever since he left the hospital last time, 08/11/23. Echo 10/05: Normal left ventricular wall thickness and chamber size. Ejection fraction is 60%. Wall motion is normal Normal right ventricular size and systolic function Both atria are normal in size Left ventricular function appears unchanged compared to July 2023. HFpEF. Patient was diuresed. Patient was found to have bilateral lower extremity wounds, was seen by the wound care nurse and recommendations were followed. Patient was discharged to home with home heatlh services. Labs (BMP) should be drawn 10/12 with results to PCP. Further wound care orders by PCP. Patient had no oxygen requirement. Home Meds and New Rx's Prescriptions: Continued Linzess 290 mcg capsule 290 mcg PO DAILY PRN acetaminophen 500 MG tablet 1,000 mg PO Q4H PRN Patient Comments: Not on medication list melatonin 3 MG tablet 3 mg PO HS PRN Patient Comments: Not on medication list Rx Instructions: 03/04/17 Dr BASURTO [facility]&R diclofenac sodium [Voltaren] 100 GM gel 100 gm Topical BID MDD twice Qty: 1 2RF Patient Comments: Not on medication list naloxone [Narcan] 4 MG spray,non-aerosol 4 mg NS as directed 1 Days Qty: 2 0RF Rx Instructions: instill 1 spray into 1 nostril for opioid overdose-may repeat once in opposite nostril if no response hydrochlorothiazide 25 mg tablet 25 mg PO DAILY sodium chloride 7 % solution for nebulization See Rx Instructions .ROUTE .COMPLEX Qty: 240 12RF Dose Instruction: INHALE THE CONTENTS OF ONE VIAL VIA NEBULIZER TWO TIMES A DAY Rx Instructions: INHALE THE CONTENTS OF ONE VIAL VIA NEBULIZER TWO TIMES A DAY oxycodone 10 MG tablet 10 mg PO QID PRN (Reason: Pain) tamsulosin 0.4 mg Capsule 0.4 mg PO HS albuterol sulfate 2.5 mg /3 mL (0.083 %) Solution For Nebulization 2.5 mg Inhalation Q6H PRN polyethylene glycol 3350 17 gram/dose powder 17 g PO DAILY PRN (Reason: Constipation) Patient Comments: TAKE 17G ONE CAPFUL BY MOUTH MIXED IN 8OZ OF LIQUID AND DRINK ONCE DAILY NEEDED albuterol sulfate [ProAir HFA] 90 mcg/actuation HFA aerosol inhaler 2 inh INHALATION Q4H PRN Patient Comments: INHALE TWO PUFFS BY MOUTH EVERY 4 TO 6 HOURS NEEDED ondansetron 4 mg Tablet,Disintegrating 4 mg PO TID PRN Patient Comments: Not on medication list triamcinolone acetonide 0.1 % cream 1 applic TOPICAL DAILY Patient Comments: Not on medication list gabapentin 600 mg tablet 600 mg PO QID Patient Comments: TAKE ONE TABLET BY MOUTH FOUR TIMES A DAY DIRECTED nystatin 100,000 unit/gram cream 1 applic TOPICAL BID Patient Comments: APPLY LIBERALLY TO AFFECTED AREA(S) TWO TIMES A DAY DIRECTED metoprolol succinate 100 mg tablet extended release 24 hr PO Patient Comments: TAKE ONE TABLET BY MOUTH EVERY DAY furosemide 40 mg tablet See Rx Instructions .ROUTE .COMPLEX Rx Instructions: take 80 mg every morning and 40 mg every evening; cholecalciferol (vitamin D3) 1,000 UNITS tablet 1,000 units PO DAILY Patient Comments: Not on medication list ipratropium-albuterol 0.5 mg-3 mg(2.5 mg base)/3 mL solution for nebulization 3 ml INHALATION DIRECTED Sin Ellipta 100-62.5-25 mcg blister with device 1 inh INHALATION QAM Patient Comments: INHALE ONE PUFF BY MOUTH EVERY MORNING quetiapine 25 mg tablet 25 mg PO HS Patient Comments: TAKE ONE TABLET BY MOUTH EVERY DAY IN THE EVENING Jardiance 10 mg Tablet 10 mg PO QAM Qty: 30 0RF losartan 50 mg Tablet 50 mg PO DAILY Qty: 30 0RF spironolactone 25 mg Tablet 25 mg PO DAILY Qty: 30 0RF ropinirole 1 mg tablet 1 mg PO QHS Qty: 30 0RF Discontinued furosemide 40 mg tablet See Rx Instructions .ROUTE .COMPLEX Rx Instructions: take 80 mg every morning and 40 mg every evening; furosemide 40 mg tablet 40 mg PO DAILY Patient Comments: TAKE ONE TABLET BY MOUTH EVERY DAY Discharge Instructions Instructions: Heart Failure (DC) Additional Instructions: There is a change in the furosemide dosing. Take 80 mg every morning and 40 mg every night. A prescription has been sent to your pharmacy. Your doctor has been made aware of the change. Home Health will draw your blood Sunday before your Doctor's appointment on 10/10. Wound care recommendation: 1. Clean legs and wounds with Anasept cleanser. 2. Pat dry. 3. Apply 1/8 inch thick Anasept gel to wounds. 4. Cover with Mepelix dressings. 5. Change every 3 days and prn 6. Wrap with caterina wraps started at the toes up to the knees with 50% overlap and 50% stretch. Reapply wraps as needed. Keep legs elevated while in recliner and while in bed using at least 2 pillows length winn so that there is support under the knees. PCP should follow up Stand Alone Forms: Nursing Discharge Form Referrals: Yvonne Solorio [Primary Care Provider] - 10/17/23 10:15 am (Patient has increase in furosemide to 80 mg in the am and 40 mg pm - BMP ordered for 10/12 with results to PCP. Wound care recommendation: 1. Clean legs and wounds with Anasept cleanser. 2. Pat dry. 3. Apply 1/8 inch thick Anasept gel to wounds. 4. Cover with Mepelix dressings. 5. Change every 3 days and prn 6. Wrap with caterina wraps started at the toes up to the knees with 50% overlap and 50% stretch. Reapply wraps as needed. ) Activity:: Activity as Tolerated Equipment/Supplies:: No Equipment Needed Diet:: Low Sodium Discharge Orders Discharge Orders: Discharge Order (Routine); Ordered 10/09/23 Ordered By: Shannan Mcadams Other Ambulatory Orders: Basic Metabolic Panel (Routine) Timeframe: 20231012 Facility: [facility] - Location: Laboratory Outpatient - [facility] Ordered By: Shannan Mcadams Discharge Data Discharge Date/Time-TO BE ENTERED AT DEPARTURE: 10/09/23 15:49 DS: Summary Time Spent with Patient providing and/or coordinating discharge services: Greater than 30 minutes Status at Discharge Functional status at discharge: uses cane/walker Overall status at discharge: patient is back to baseline Mental Status: mental status grossly normal Speech and Movement: speech and movement normal Mood: congruent mood Affect: normal affect Exam Narrative Exam Narrative: General: A pleasant elderly male who is A&Ox3, appear comfortable in bed laying at about 30 degree angle on RA Neurological: A&Ox3, no focal deficits Psychiatric: mildly anxious, appropriate speech pattern/content Skin: distal BLE w/ mild erythema and warmth, symmetric HEENT: Atraumatic, normocephalic, EOMI, dry MM, clear oropharynx, no submandibular or cervical lymphadenopathy, no goiter or JVD Cardiovascular: RRR, no m/r/g Lungs: Diminished breath sounds B Gastrointestinal: soft, nontender, nondistended Genitourinary: decreased scrotal edema Extremities: woody edema BLEs, see skin exam above, +1 pedal pulse in LLE, unable to palpate pedal pulse RLE, no lesions on B feet; L foot 1st digit with onychomycosis Psych Mental Status: mental status grossly normal Speech and Movement: speech and movement normal Mood: congruent mood Affect: normal affect DS: Data Vitals/I&O Vitals and I&O: Vital Signs Temperature 36.2 C L 10/09/23 09:43 Temperature Source Tympanic 10/09/23 09:43 Pulse 70 10/09/23 12:52 Pulse Rhythm Regular 10/09/23 08:31 Pulse 53 L 10/05/23 10:50 Respiratory Rate 16 10/09/23 11:54 Respiratory Effort Normal, Non-Labored 10/08/23 19:45 Respiratory Depth Normal 10/08/23 19:45 Respiratory Pattern Normal 10/08/23 19:45 Blood Pressure 118/70 10/09/23 12:52 Blood Pressure Mean 125 10/05/23 10:47 Pulse Oximetry 91 L 10/09/23 12:52 Oxygen Delivery Method Room Air 10/09/23 12:52 Oxygen Flow Rate 0 10/09/23 12:52 Pain Level 9 10/09/23 13:57 Comment reported to 10/09/23 06:30 Intake & Output 10/08/23 10/09/23 10/09/23 23:59 11:59 23:59 Intake Total 490 / 500 600 / 600 Output Total 4000 / 5575 3600 / 4750 1150 / 4750 Balance -3510 / -5075 -3000 / -4150 -1150 / -4150 Weight 96.95 kg Intake: Oral 490 / 490 600 / 600 Output: Urine 4000 / 5575 3600 / 4750 1150 / 4750 Other: Urine Color Yellow Pale Yellow Urine Appearance Clear Clear Clear Urine Odor None None None Comment Pt c/o burning sensation in urethra. Stool Occult Blood Negative Stool Size Large Large Stool Characteristics Soft Soft Brown Brown Voiding Methods Urinal Data Completed and Pending Labs on day of discharge: Labs from last 24 hours 10/09/23 10/08/23 10/08/23 06:46 16:36 06:35 WBC 8.41 RBC 4.02 L Hgb 11.5 L Hct 35.8 L MCV 89 MCH 28.6 MCHC 32.1 RDW 26.3 H Plt Count 242 MPV 10.1 Immature Gran % 0.4 Neutrophils % 68.8 Lymphocytes % 18.2 Monocytes % 11.4 Eosinophils % 1.0 Basophils % 0.2 Nucleated RBC % 0.0 Absolute Neutrophils 5.79 Absolute Lymphocytes 1.53 Absolute Monocytes 0.96 H Absolute Eosinophils 0.08 Absolute Basophils 0.02 Sodium 138 Potassium 4.4 Chloride 97 L Carbon Dioxide 36.5 H Anion Gap 4.5 BUN 27 H Creatinine 1.2 Est GFR (CKD-EPI 2020) 58.89 Glucose 111 H Calcium 9.3 Magnesium 2.4 Transferrin 245 Urine Color Yellow Urine Clarity Clear Urine pH 7.5 Ur Specific [place] 1.020 Urine Protein Negative Urine Ketones Negative Urine Blood Moderate H Urine Nitrite Negative Urine Bilirubin Negative Urine Urobilinogen 0.2 Ur Leukocyte Esterase Small H Urine RBC 10-20 H Urine WBC 3-5 Ur Epithelial Cells Rare Urine Crystals Negative Urine Bacteria Rare Urine Casts Negative Urine Mucus Negative Ur Culture Indicated? Yes Urine Glucose 500 H 10/09/23 08:31 Stool Stool Occult Blood (DELBERT) - Pending Preliminary micro results at discharge 10/08/23 16:36 Urine Culture - Preliminary Urine - Reflex from Ua 10/09/23 08:31 Stool Occult Blood (DELBERT) - Pending Stool PFSH All Active Problems (Updated 10/09/23 @ 07:47 by Desmond Mccullough MD) Difficult Garcia catheter placement (Acute) Palliative care encounter (Acute) Advance care planning (Acute) Discharge planning issues (Acute) DVT prophylaxis (Acute) Pleural effusion (Acute) Pulmonary hypertension (Acute) (HFpEF) heart failure with preserved ejection fraction (Acute) Hypoxemia (Acute) Congestive heart failure (Chronic) Reactive airway disease (Acute) Restless leg syndrome (Acute) Cellulitis of lower extremity (Acute) Constipation (Acute) Decubital ulcer (Acute) Chronic anemia (Acute) 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 exposure (Acute) Respiratory failure with hypoxia (Acute) Bronchiectasis (Chronic) Nocturnal hypoxia (Acute) Restrictive lung disease (Chronic) Foreign body in bladder and urethra (Acute) Dislodged Garcia catheter (Acute) Hematuria (Acute) Acute UTI (Acute) Abdominal pain (Acute) Diabetes mellitus (Chronic) BPH (benign prostatic hyperplasia) (Chronic) Essential hypertension (Acute) Lung infiltrate (Acute) UTI (urinary tract infection) (Acute) 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 [place] Total replacement of hip (~1999) Right hip, later revised in 2005 left side 2006 Rotator Cuff Repair (~1996) Right Repair of inguinal hernia (08/31/11) Right sided with orchiectomy Endoscopic Carpal Tunnel release (05/04/15) Right by Dr. Ayala Extraction of cataract (02/15/16) [place] R with IOL; and L as well, Dr. Dickinson in [place] Family History Mother , CVA at age 85. Diabetes age 50 Essential hypertension Stroke Uterine cancer Father , Colon CA at age 87. Colon cancer Sister Breast cancer Sister Ovarian cancer Sister Ovarian cancer Sister No problems noted. Sister No problems noted. Sister No problems noted. Sister No problems noted. Sister No problems noted. Brother Diabetes Brother No problems noted. Brother No problems noted. Social History Smoking/Tobacco Use Status: Never Smoking risk assessment performed?: Yes Alcohol Intake: never Drug use: Never Substance use type: does not use Housing: house Do you feel safe at home: Yes Do you feel safe in your relationship?: Yes Additional Social history: lives with . Time Spent with Patient Time Spent with Patient: <45 minutes Time was spent: preparing to see the patient(eg.review tests), ordering medications,tests, procedures, referring, communicating with other health career counselor, indepentently interpreting results and care coordination
--- NOTE | 2023-10-09 15:14 | CMDISCH_ITS ---
Date of service: 10/09/23 Time of Service: 15:15 LACE Index Scoring Tool Questions: Length of Stay (in days): 4 - 6 Was the patient admitted via the E.D.?: Yes Comorbidities: Diabetes w/o Complication and Congestive Heart Failure E.D. Visits: 6 Answers: Total Score: 14 Risk of Readmission: High Risk Care Management Discharge Plan Reason for Hospitalization: Acute hypoxic respiratory failure; CHF, bronchiectasis Discharge Plan: Jamie returned home today with new orders for HH RN, PT, OT, EXPLOSIVES MIXER OPERATOR. His son, Phoenix, drove him home via private vehicle. CM spoke to his , Aydee, who had been here earlier in the day, but was unable to bring him home. Jamie will follow up with his PCP and discharge plan of care. He is happy to be going home. Patient/Family Education Needs: Review discharge instructions and limitations, discussion of self care needs including 'ask me three'. Services Needed at Discharge: Home Health Care Services (new HH RN, PT, OT, EXPLOSIVES MIXER OPERATOR)
--- NOTE | 2023-10-09 16:17 | NUR.NOTE ---
This nurse called patient to let her know there was a discrepancy in the discharge paperwork stating patient was to stop furosemide, although new orders for furosemide 80mg in the morning and 40 mg at night was called into [facility] and picked up by family. This nurse let patient know that patient was to continue taking the furosemide at prescribed dosage. Pt stated, I know he takes 80 in the morning and 40 at night. This nurse stated that was correct and then patient stated, I am pressing charges because it is unconscionable that a patient was sent out in zero degree weather in nothing but cloth pants and a shirt. This nurse stated that patient wanted to wear the clothing because he stated he had no other clothes. I also informed that patient son was in the room at the time and mentioned nothing about patient having any clothes. stated, I was downstairs and didn't have time to get up there. Again, this nurse stated that the son was in the room and he never said anything about anyone having clothes to be brought up. Patient's stated she didn't wanna talk anymore and hung up the phone. equipment records supervisor aware.
--- NOTE | 2023-10-09 16:20 | NUR.NOTE ---
Pt asked if he was going home and at the time, a couple hours ago, there was not an order for him to be dc'd. He stated it's just as well, she'd just take it out on me. This nurse asked if he felt safe at home, he replied that he did, he just knows how she gets. He knows thatwhen she gets upset, it lasts a long time' .Nursing Note:
--- NOTE | 2023-10-09 17:16 | PDOC.HHF2F ---
Home Health Referral Home Health Orders Clinical synopsis of why skilled professionals are needed: Mr Aguilar is an 88 year old male with PMHx of both restrictive lung disease and bronchiectasis, not on oxygen, as well as h/o NIDDM2, HTN, BPH, who was brought to [facility] ED 10/05 by ambulance for shortness of breath. On arrival to ED, per the ED provider, he was not as short of breath; however, he was found to be edematous in his LEs and scrotum.. His presentation in the ED was consistent with pulmonary edema as well as exacerbation of bronchiectasis. A nebulizer treatment relieved his chest tightness. Troponins were negative for ischemia, as was the EKG. Initially, he required 8L of O2 by NC, but was able to be successfully weaned down to RA with O2 sats in low 90s, though still mildly tachypneic. He tested negative for Flu/RSV/COVID-19. Hospitalist admission for further treatment of CHF and bronchiectasis was requested. Endorsed nonproductive cough and occasional dizziness, nausea, and palpitations which he calls anxiety. He denied fevers, runny nose, sore throat. He denied noncompliance with medications or dietary indiscretions. He endorsed orthopnea (has been elevating the head of bed at home) as well as PND. He also stated he snores and uses 2L of O2 by NC at night. Stated his lower extremities have been pink ever since he left the hospital last time, 08/11/23. Echo 10/05: Normal left ventricular wall thickness and chamber size. Ejection fraction is 60%. Wall motion is normal Normal right ventricular size and systolic function Both atria are normal in size Left ventricular function appears unchanged compared to July 2023. HFpEF. Patient was diuresed. Patient was found to have bilateral lower extremity wounds, was seen by the wound care nurse and recommendations were followed. Patient was discharged to home with home heatlh services. Labs (BMP) should be drawn 10/12 with results to PCP. Further wound care orders by PCP. Patient had no oxygen requirement. Medical diagnosis necessitation home health referral: HFpEF; bilateral lower extremity wounds Registered Nurse: Check all that apply Instruct on new or changed medication(s)/assess compliance: Ordered Assess for exacerbation of medical condition, instruct patient/caregivers on signs and symptoms to report for early detection: Ordered Assess wound for signs and symptoms of infection, instruct on wound care and/or provide skilled wound care consisting of: Wound care recommendation: 1. Clean legs and wounds with Anasept cleanser. 2. Pat dry. 3. Apply 1/8 inch thick Anasept gel to wounds. 4. Cover with Mepelix dressings. 5. Change every 3 days and prn 6. Wrap with caterina wraps started at the toes up to the knees with 50% overlap and 50% stretch. Reapply wraps as needed. Keep legs elevated while in recliner and while in bed using at least 2 pillows length winn so that there is support under the knees. PCP should follow up Further wound care orders from PCP Other: Patient's furosemide was increased to 80 mg in the am and 40 mg in the PM Please draw BMP on 10/12; dx code 150.3; results to Dr Solorio - concern for electrolyte imbalance with increase in diuretics. Physical Therapist: Check all that apply Increase strength & endurance for safe mobility at home: Ordered To design/establish home maintenance program: Ordered Fall reduction therapy program for patient with history of frequent falls: Ordered Home safety evaluation and teaching/gait training including stair management (if applicable): Ordered Occupational Therapist: Evaluate and treat for patient unable to perform ADL/IADL/self-care: Ordered Upper extremity strengthening, range and motion: Ordered Pipe Testing Technician: Assist with community resources: Ordered Assist with pipe and boiler covers supervisor care planning: Ordered Home Bound Status Requires the aid of supportive device (check all that apply): Walker Patient has a condition such that leaving home is medically contraindicated (Describe): Intermittent oxygen requirement, weak, needs device and at least one person to assist with ambulation. Describe why leaving home would require a considerable and taxing effort: Requires frequent rest periods and Oxygen Encounter Date and Reason: I certify that a FTF encounter for this patient was performed on October 09, 2023 and that such encounter was related to the primary reason the patient requires home health services. The encounter was conducted in the following manner: By me as the certifying physician, ACQUISITION MARKETING COORDINATOR, PA or By an inpatient physician, ACQUISITION MARKETING COORDINATOR or PA during an inpatient stay who communicated findings to me, Certification And Authentication I certify that I composed the above information based on my clinical judgment relating to this patient's medical condition and, if applicable, clinical findings communicated to me by the NPP or inpatient physician who performed the FTF encounter. Name of Provider that will be monitoring home health services: Yvonne Solorio
== END 2023-10-09 15:49 | disposition home health service (06) | DRG 291 ==
LOC: ER 12:04 → MS 12:50
PROVIDERS: Internal Medicine; Nurse Practitioner Family; Admitting Provider Internal Medicine; Emergency Provider Student in an Organized Health Care Education/Training Program; PCP Family Medicine; Visit Provider Internal Medicine
DX: I11.0 Hypertensive heart disease with heart failure (principal); I50.33 Acute on chronic diastolic (congestive) heart failure; J96.01 Acute respiratory failure with hypoxia; J47.1 Bronchiectasis with (acute) exacerbation; L97.211 Non-pressure chronic ulcer of right calf limited to breakdown of skin; L97.221 Non-pressure chronic ulcer of left calf limited to breakdown of skin; L97.811 Non-pressure chronic ulcer of other part of right lower leg limited to breakdown of skin; L97.518 Non-pressure chronic ulcer of other part of right foot with other specified severity; I27.20 Pulmonary hypertension, unspecified; J98.4 Other disorders of lung; G89.29 Other chronic pain; I45.10 Unspecified right bundle-branch block; J45.909 Unspecified asthma, uncomplicated; G25.81 Restless legs syndrome; K59.00 Constipation, unspecified; D64.9 Anemia, unspecified; N40.0 Benign prostatic hyperplasia without lower urinary tract symptoms; M47.897 Other spondylosis, lumbosacral region; E66.9 Obesity, unspecified; E11.40 Type 2 diabetes mellitus with diabetic neuropathy, unspecified; Z96.643 Presence of artificial hip joint, bilateral; I83.012 Varicose veins of right lower extremity with ulcer of calf; I83.022 Varicose veins of left lower extremity with ulcer of calf; I83.018 Varicose veins of right lower extremity with ulcer other part of lower leg; E11.621 Type 2 diabetes mellitus with foot ulcer; Z79.84 Long term (current) use of oral hypoglycemic drugs
CPT/HCPCS: 00123; 36415; 51702; 80048; 80053; 84145; 86850; 86900; 86901; 87637; 93005; 93306; 93308; 94618; 94640; 96374; 96375; 97110; 97162; 97530; 99221; 99285; 71045; 71046; 74018; 81003; 81015; 82270; 82607; 82728; 82746; 83540; 83550; 83735; 83880; 84439; 84443; 84466; 84484; 85025; 85610; 85730; 87070; 87086; 87205; 93010; 94664; 94667; 94668; 94760; 99223; 99232; 99233; 99239; J1200; J1644; J1940; J2930; J7512; J7613; J7620

== ENCOUNTER → 2023-10-09 07:41 | Outpatient (BNVA) | payer MEDICARE, SELFPAY | PROVIDERS: PCP Family Medicine; Referring Provider Family Medicine; Visit Provider Urology ==

== ENCOUNTER 2023-10-15 14:51 | Outpatient (REF) | payer MEDICARE, SELFPAY ==
[2023-10-15 15:00] LABS: Anion Gap 6.2 mmol/L (3-11); BUN 34 mg/dL (7-18); CO2 33.8 mmol/L (21.0-32.0); CREATININE 1.1 mg/dL (0.70-1.30); Calcium 9.4 mg/dL (8.5-10.1); Chloride 101 mmol/L (98-107); Estimated GFR 65.38 (mL/min/1.73m2); Glucose 127 mg/dL (74-106); Potassium 4.3 mmol/L (3.5-5.1); Sodium 141 mmol/L (136-145)
== END 2023-10-15 14:52 | disposition home or self-care (01) ==
LOC: NCHCN 14:51
PROVIDERS: PCP Family Medicine; Visit Provider Family Medicine
DX: I50.22 Chronic systolic (congestive) heart failure (principal)
CPT/HCPCS: 80048

== ENCOUNTER 2023-12-18 20:39 | Outpatient (REF) | payer MEDICARE, SELFPAY ==
[2023-12-18 20:53] LABS: Anion Gap 7.5 mmol/L (3-11); BUN 30 mg/dL (7-18); CO2 33.5 mmol/L (21.0-32.0); Calcium 9.3 mg/dL (8.5-10.1); Chloride 101 mmol/L (98-107); Glucose 101 mg/dL (74-106); Potassium 4.4 mmol/L (3.5-5.1); Sodium 142 mmol/L (136-145)
== END 2023-12-18 20:40 | disposition home or self-care (01) ==
LOC: NCHCN 20:39
PROVIDERS: PCP Family Medicine; Visit Provider Family Medicine
DX: I11.0 Hypertensive heart disease with heart failure (principal); I50.33 Acute on chronic diastolic (congestive) heart failure
CPT/HCPCS: 80048

== ENCOUNTER 2024-01-21 10:18 | Inpatient (IN) | payer MEDICARE, SELFPAY ==
[2024-01-21] VITALS (38 sets, daily range): BP systolic 107–161; BP diastolic 51–86; PULSE 45–113; RESP 2–20; TEMP 36–36.9; O2SAT 85–99
--- NOTE | 2024-01-21 10:15 | RT.EKG_ITS ---
APPROVED REPORT Exam: Resting ECG Reason for Exam: weakness Patient Location: E HR:64 bpm ECG Measurements Heart Rate 64 AXIS CA 322 P 0 QRSd 154 QRS -10 QT 479 T -36 QTc 496 Conclusion Sinus rhythm...normal P axis, V-rate 60- 99 Prolonged CA interval...CA >220, V-rate 50- 90 Right bundle branch block...QRSd>120, terminal axis(90,270) Inferior infarct, age indeterminate...Q>35mS, T neg, II III aVF
--- NOTE | 2024-01-21 10:24 | ED.GENADUL_ITS ---
Discharge Plan Disposition Patient Disposition: Admit to [facility] Condition: Stable Discharge Details Clinical Impression: Acute renal failure Primary Care Provider: Yvonne Solorio ED Provider: Pasha Amezquita Home Meds and New Rx's Prescriptions: No Action Linzess 290 mcg capsule 290 mcg PO DAILY PRN acetaminophen 500 MG tablet 1,000 mg PO Q4H PRN Patient Comments: Not on medication list naloxone [Narcan] 4 MG spray,non-aerosol 4 mg NS as directed 1 Days Qty: 2 0RF Rx Instructions: instill 1 spray into 1 nostril for opioid overdose-may repeat once in opposite nostril if no response sodium chloride 7 % solution for nebulization See Rx Instructions .ROUTE .COMPLEX Qty: 240 12RF Dose Instruction: INHALE THE CONTENTS OF ONE VIAL VIA NEBULIZER TWO TIMES A DAY Rx Instructions: INHALE THE CONTENTS OF ONE VIAL VIA NEBULIZER TWO TIMES A DAY latanoprost 0.005 % drops 1 drp ophthalmic (eye) DAILY potassium chloride 10 mEq capsule, extended release 10 meq PO DAILY silver sulfadiazine [Silvadene] 1 % cream 1 applic topical BID Rx Instructions: apply a 1.5 mm thickness oxycodone 10 MG tablet 10 mg PO QID PRN (Reason: Pain) tamsulosin 0.4 mg Capsule 0.4 mg PO HS albuterol sulfate 2.5 mg /3 mL (0.083 %) Solution For Nebulization 2.5 mg Inhalation Q6H PRN polyethylene glycol 3350 17 gram/dose powder 17 g PO DAILY PRN (Reason: Constipation) Patient Comments: TAKE 17G ONE CAPFUL BY MOUTH MIXED IN 8OZ OF LIQUID AND DRINK ONCE DAILY NEEDED albuterol sulfate [ProAir HFA] 90 mcg/actuation HFA aerosol inhaler 2 inh INHALATION Q4H PRN Patient Comments: INHALE TWO PUFFS BY MOUTH EVERY 4 TO 6 HOURS NEEDED gabapentin 600 mg tablet 600 mg PO QID Patient Comments: TAKE ONE TABLET BY MOUTH FOUR TIMES A DAY DIRECTED metoprolol succinate 100 mg tablet extended release 24 hr 100 mg PO DAILY Patient Comments: TAKE ONE TABLET BY MOUTH EVERY DAY furosemide 40 mg tablet 40 mg PO DAILY cholecalciferol (vitamin D3) 1,000 UNITS tablet 1,000 units PO DAILY Patient Comments: Not on medication list ipratropium-albuterol 0.5 mg-3 mg(2.5 mg base)/3 mL solution for nebulization 3 ml INHALATION DIRECTED Sin Blancas 100-62.5-25 mcg blister with device 1 inh INHALATION QAM Patient Comments: INHALE ONE PUFF BY MOUTH EVERY MORNING quetiapine 25 mg tablet 75 mg PO HS potassium chloride 10 mEq tablet extended release 10 meq PO DAILY Patient Comments: TAKE ONE TABLET BY MOUTH EVERY DAY losartan 100 mg tablet 100 mg PO DAILY Patient Comments: TAKE ONE TABLET BY MOUTH EVERY DAY HPI General Date/Time Provider Initiated Documentation: 01/21/24 10:24 . HPI Narrative: 88 year-old male presents to ED today by EMS with a chief complaint of weakness over the past 3-4 days per home health. Usually uses a walker, but couldn't even stand to pivot for EMS. They note some increased leg swelling, he reports pain in his legs. Quality described as shortness of breath, does not O2 at baseline, denies chest pain, no radiation to fever, open leg wounds, abdominal pain, nausea/vomiting, severe headache, slurred speech, altered mentation. Severity is described as moderate to severe. Palliating factors include nothing specific attempted. Provoking factors include nothing specific- he did receive a recent straight cath from [facility] with output of 600mL urine. Patient not anticoagulated. Related Data Home Medications Medication Instructions Recorded Confirmed acetaminophen 500 mg tablet 1,000 mg PO Q4H PRN 07/09/15 01/21/24 naloxone 4 mg/actuation nasal 4 mg NS as directed 1 day #2 sprays 01/23/18 01/21/24 spray (Narcan) cholecalciferol (vitamin D3) 25 1,000 units PO DAILY 03/14/18 01/21/24 mcg (1,000 unit) tablet oxycodone 10 mg tablet 10 mg PO QID PRN Pain 06/13/18 01/21/24 albuterol sulfate 2.5 mg/3 mL 2.5 mg inhalation Q6H PRN 04/21/19 01/21/24 (0.083 %) solution for nebulization tamsulosin 0.4 mg capsule 0.4 mg PO HS 04/21/19 01/21/24 linaclotide 290 mcg capsule 290 mcg PO DAILY PRN 05/22/19 01/21/24 (Linzess) fluticasone fur. 100 mcg-umeclid 1 inh inhalation QAM 02/24/21 01/21/24 62.5 mcg-vilant 25 mcg inhalat.powder (Trelegy Ellipta) ipratropium 0.5 mg-albuterol 3 mg 3 ml inhalation DIRECTED 02/24/21 01/21/24 (2.5 mg base)/3 mL nebulization soln albuterol sulfate 90 mcg/actuation 2 inh inhalation Q4H PRN 03/02/21 01/21/24 aerosol inhaler (ProAir HFA) polyethylene glycol 3350 17 17 g PO DAILY PRN Constipation 03/02/21 01/21/24 gram/dose oral powder gabapentin 600 mg tablet 600 mg PO QID 05/03/23 01/21/24 quetiapine 25 mg tablet 75 mg PO HS 08/03/23 01/21/24 sodium chloride 7 % for See Rx Instructions .Route 08/27/23 01/21/24 nebulization .COMPLEX #240 mL metoprolol succinate 100 mg 100 mg PO DAILY 10/05/23 01/21/24 tablet,extended release 24 hr furosemide 40 mg tablet 40 mg PO DAILY 10/09/23 01/21/24 latanoprost 0.005 % eye drops 1 drp ophthalmic (eye) DAILY 11/21/23 01/21/24 potassium chloride 10 mEq 10 meq PO DAILY 11/21/23 01/21/24 capsule,extended release silver sulfadiazine 1 % topical 1 applic topical BID 11/21/23 01/21/24 cream (Silvadene) losartan 100 mg tablet 100 mg PO DAILY 01/21/24 01/21/24 potassium chloride 10 mEq 10 meq PO DAILY 01/21/24 01/21/24 tablet,extended release Previous Rx's Medication Instructions Recorded naloxone 4 mg/actuation nasal 4 mg NS as directed 1 day #2 sprays 01/23/18 spray (Narcan) sodium chloride 7 % for See Rx Instructions .Route 08/27/23 nebulization .COMPLEX #240 mL Allergies Allergy/AdvReac Type Severity Reaction Status Date / Time diclofenac Allergy Mild Other (See Verified 01/21/24 10:25 Comment) aspirin AdvReac Intermediate GI Bleeding Verified 01/21/24 10:25 NSAIDS (Non-Steroidal AdvReac Intermediate GI Bleeding Verified 01/21/24 10:25 Anti-Inflamma General DIAZ: 2 Review of Systems All systems reviewed & are unremarkable except as noted in HPI and below Exam Narrative Exam Narrative: GENERAL APPEARANCE: Well-nourished, non-toxic, awake and alert, atraumatic, no acute distress. SKIN: Warm, pink, dry, intact, without rashes/lesions/ulcerations. HEAD: Normocephalic, atraumatic, normal hair distribution for gender/age. EYES: Pupils PERRLA, EOMs intact without nystagmus, normal conjunctiva, no exudates on lids/lashes. ENT: Nares patent, no circumoral cyanosis, no facial swelling NECK: Supple, trachea midline, painless cervical ROM. LUNGS/CHEST: Lungs - wheezing diffusely, no rales at bases, non-labored respirations, increased A/P diameter, symmetrical expansion, no chest wall deformity HEART (CV/PV): Regular rate and rhythm without murmur, no peripheral edema, no JVD. ABDOMEN: Soft, non-distended, no guarding, nontendern diffusely. MSK: Normal ROM, no swelling/deformity to bilateral UEs or LEs, moving all extremities without weakness, no cyanosis, spine midline without tenderness, normal curvature. NEURO: Mental Status AAOx4 - alert to person, place, time, events No facial droop, no forehead involvement. Motor: No focal weakness - strength 5/5 in bilateral UEs and LEs, proximal and distal, symmetric. Sensory: sensation intact to light touch globally. Gait NT PSYCH: euthymic, cooperative, pleasant, appropriate speech- chronic hoarse voice Medical Decision Making This dictation utilizes [id number] dictation software and may contain unedited grammatical errors. 88 y/o M presents to ED today with a chief complaint of leg pain, weakness, denies fever, denies chest pain, denies abdominal pain- recent straight cath by HomeHealth with 600mL urine output, increased leg swelling. Patient was placed on 2 L nasal cannula by EMS but does not use home O2, denies URI symptoms but the patient is a poor historian. Patients' medical history: CHF, COPD, pulmonary hypertension, GERD, history of GI bleeding, varicosities of lower extremities, urinary retention, glaucoma, dementia, chronic anemia, respiratory failure, bronchiectasis, diabetes mellitus. Family and social history: unable to obtain accurate history, lives with , has HomeHealth. Pertinent exam findings / vital signs include diffuse wheezing to lungs, no auscultated cardiac murmur but difficult auscultation due to body habitus, benign abdomen, bilateral lower extremity swelling with taut skin, slightly warm to touch, no redness to either joints of lower extremity, no pain with passive range of motion at the knees and ankles. Differential / pathologies of concern include COPD Exacerbation, CHF, DVT, Cellulitis, Respiratory Failure, PE, UTI. Diagnostic studies of: -CBC, CMP, CRP/ESR, lactate, procalcitonin, lipase, magnesium, BNP, troponin I, D-dimer, urinalysis, blood cultures, VBG, COVID/flu/RSV PCR, EKG. Add-on CT ABD/Pelvis wo for obstructive r/o. -CBC shows leukocytosis, mild chronic anemia -D-dimer elevated to 3000 > ordering U/S bilat LEs for DVT r/o -CMP shows GARO SCr 3.9, baseline 1.2 > may need hydration prior to CTA for PE ruleout, low likelihood -VBG shows pH 7.25 -Lactate 1.2, Procalcitonin negative -BNP ~13,000 - likely CHF exacerbation w mixed COPD etiology -Trop I neg -Lipase WNL -Covid/Flu/RSV PCR negative -Blood Cx's pending -EKG shows sinus rhythm at 64 with a prolonged NE interval, normal axis, some ST depression in lateral leads with slightly widened QRS, QT is 479, right bundle branch block, consistent with priors. -Portable CXR shows stable pleural effusion, no pulmonary edema -U/S bilat LEs pending at time of admission -CT ABD/Pelvis wo Contrast shows no hydronephrosis or obstructive pathology to explain elevated SCr Interventions of: -6mL DuoNeb, 500mL fluid bolus, 250mL bolus about 90 minutes later. ED Course/Assessment/Plan: 88-year-old male presents by EMS with weakness progressing over the last 3 to 4 days, he is a poor historian but has no complaints of chest pain or respiratory distress beyond baseline, he states that he has leg and knee pain, he has increased dependent edema of the legs with some skin changes and the skin is very taut and warm to touch she has no fluctuant swelling consistent with abscess, likely chronic venous insufficiency, he has a known diastolic heart failure, I suspect that he is in somewhat of a CHF exacerbation with elevated BNP but also likely dehydrated as he has acute renal failure with an acute creatinine elevation to 3.9. Chest x-ray shows stable right pleural effusion, CT abdomen pelvis without contrast shows no obstructive pathology as cause of creatinine elevation, his laboratory workup shows no suspicion for sepsis. His D-dimer is significantly elevated at 3000, I ordered ultrasound of bilateral lower extremities to rule out DVTs. Patient has potential to need CT angiogram should his respiratory status changed once his creatinine is improved a little bit for contrast study but I have low suspicion for PE at this time. I consulted with hospitalist Dr. Stiles for admission for acute renal failure which was accepted at 1335. Findings not consistent with. Disposition of Acute Renal Failure. Patient verbalized understanding of the plan and return to ED criteria and engaged in shared decision making. Medical Records Medical records reviewed: Yes I reviewed the patient's medical records. Imaging Data Radiologic Study: Attestation: I personally reviewed and interpreted this imaging study as follows: Imaging: X-Ray Radiologist's impression: EXAM: XR PORTABLE CHEST AP CLINICAL HISTORY: wheezing TECHNIQUE: 2D digital imaging was performed. COMPARISON: CR,XR XR CHEST 2V PA LATERAL from 10/07/2023 CR,XR XR ABDOMEN FLAT PLATE from 10/07/2023 FINDINGS: Exam limited by poor pulmonary inflation and motion. Leads overlie the chest. LUNGS: Right pleural effusion again identified. Adjacent atelectasis. No left effusion. HEART: Enlarged, stable. AORTA: Normal diameter. BONES: Unremarkable for age. Soft tissues: Unremarkable. IMPRESSION: Stable appearance of moderate right pleural effusion. Adjacent atelectasis. Poor pulmonary inflation. Radiologic Study #2: Attestation: I personally reviewed and interpreted this imaging study as follows: Imaging: Ultrasound Radiologic Study #3: Attestation: I personally reviewed and interpreted this imaging study as follows: Imaging: CT Scan Radiologist's impression: EXAM: CT ABDOMEN PELVIS WO CLINICAL HISTORY: GARO, ?obstructive pathology. TECHNIQUE: Imaging Protocol: Axial computed tomography images with coronal and sagittal reformatted images were created and reviewed. Oral: / no COMPARISON: CT CT ABDOMEN PELVIS W from 05/03/2023 FINDINGS: Lung Bases: Moderate right pleural effusion. Calcified pleural plaques. Heart is enlarged. Coronary artery calcifications. Bibasilar atelectasis, right greater than left. Liver: Normal density. No suspicious mass. Gallbladder and biliary tract: No radiodense calculus or biliary dilation. Pancreas: Normal somewhat atrophic. No abnormal calcifications or inflammatory process. Spleen: Normal. Kidneys: Normal size, contour and axis. No radiodense stones or obstructive uropathy. No suspicious masses seen. Adrenal glands: No masses seen. Lymph nodes: Within normal limits. Vasculature: Abdominal aorta non-dilated. Soft tissues: Unremarkable. Bladder: No wall thickening. Partially obscured by artifact. Bowel: No obstruction or bowel wall thickening. Peritoneal cavity: Multiple surgical clips create artifact in the midline of the upper abdomen. No ascites, collection or mesenteric inflammatory response. Reproductive organs: Prostate is enlarged impresses on the base of the bladder. Prostate is partially obscured by artifact. Bones: Bilateral hip prostheses creates artifact in the low pelvis. Degenerative and postsurgical changes of the lumbar spine. IMPRESSION: No renal calcification or hydronephrosis. Enlarged prostate. Moderate size right pleural effusion and adjacent atelectasis. Lab Data Lab results reviewed: Yes I reviewed the patient's lab results. Labs: 01/21/24 11:12 Blood Blood Culture - Pending 01/21/24 11:21 Blood Blood Culture - Pending Laboratory Tests Range/Units 01/21/24 01/21/24 01/21/24 10:30 10:30 10:30 WBC (4.4-10.8) 10^3/uL 7.06 RBC (4.36-5.78) 10^6/uL 3.42 L Hgb (13.5-17.5) g/dL 11.0 L Hct (40.0-50.0) % 33.7 L MCV (80-95) fL 99 H MCH (27.0-33.0) pg 32.2 MCHC (32.0-36.0) % 32.6 RDW (11.8-14.1) % 15.2 H Plt Count (130-400) 10^3/uL 215 MPV (8.0-11.0) fL 10.6 Immature Gran % 0.3 Neutrophils % 74.1 Lymphocytes % 12.9 Monocytes % 10.8 Eosinophils % 1.1 Basophils % 0.8 Nucleated RBC % (0.0-0.3) % 0.0 Absolute Neutrophils (1.2-6.7) 10^3/uL 5.23 Absolute Lymphocytes (1.2-3.4) 10^3/uL 0.91 L Absolute Monocytes (0.1-0.8) 10^3/uL 0.76 Absolute Eosinophils (0.0-0.7) 10^3/uL 0.08 Absolute Basophils (0.0-0.2) 10^3/uL 0.06 ESR (0-20) mm/hr 44 H D-Dimer (<500) ng/mlFEU 3175 H VBG pH (7.31-7.41) 7.25 L VBG pCO2 (41-51) mmHg 54 H VBG pO2 mmHg 52 VBG HCO3 (23-28) mmol/L 23 VBG Total CO2 (24-29) mmol/L 22 L VBG O2 Saturation % 83 VBG Base Excess (-2-3) mmol/L -4 L VBG Lactate (0.6-1.4) mmol/L Sodium Cancelled 134 L Potassium Cancelled 4.4 Chloride Cancelled Carbon Dioxide Anion Gap BUN Creatinine Est GFR (CKD-EPI 2020) Glucose Calcium Magnesium (1.8-2.4) mg/dL Total Bilirubin AST ALT Alkaline Phosphatase Creatine Kinase (39-308) U/L Troponin I (< or =60) ng/L C-Reactive Protein NT-Pro-B Natriuret Pep (<300) pg/mL Total Protein Albumin Lipase (16-77) U/L Procalcitonin ng/mL COVID-19 Source SARS-CoV-2 (PCR) (Negative) Influenza Type A (PCR) (Negative) Influenza Type B (PCR) (Negative) RSV (PCR) (Negative) Range/Units 01/21/24 01/21/24 01/21/24 10:30 10:30 10:30 WBC (4.4-10.8) 10^3/uL RBC (4.36-5.78) 10^6/uL Hgb (13.5-17.5) g/dL Hct (40.0-50.0) % MCV (80-95) fL MCH (27.0-33.0) pg MCHC (32.0-36.0) % RDW (11.8-14.1) % Plt Count (130-400) 10^3/uL MPV (8.0-11.0) fL Immature Gran % Neutrophils % Lymphocytes % Monocytes % Eosinophils % Basophils % Nucleated RBC % (0.0-0.3) % Absolute Neutrophils (1.2-6.7) 10^3/uL Absolute Lymphocytes (1.2-3.4) 10^3/uL Absolute Monocytes (0.1-0.8) 10^3/uL Absolute Eosinophils (0.0-0.7) 10^3/uL Absolute Basophils (0.0-0.2) 10^3/uL ESR (0-20) mm/hr D-Dimer (<500) ng/mlFEU VBG pH (7.31-7.41) VBG pCO2 (41-51) mmHg VBG pO2 mmHg VBG HCO3 (23-28) mmol/L VBG Total CO2 (24-29) mmol/L VBG O2 Saturation % VBG Base Excess (-2-3) mmol/L VBG Lactate (0.6-1.4) mmol/L Sodium Potassium Chloride 98 Carbon Dioxide Cancelled 24.2 Anion Gap Cancelled 11.8 H BUN Cancelled Creatinine Est GFR (CKD-EPI 2020) Glucose Calcium Magnesium (1.8-2.4) mg/dL Total Bilirubin AST ALT Alkaline Phosphatase Creatine Kinase (39-308) U/L Troponin I (< or =60) ng/L C-Reactive Protein NT-Pro-B Natriuret Pep (<300) pg/mL Total Protein Albumin Lipase (16-77) U/L Procalcitonin ng/mL COVID-19 Source SARS-CoV-2 (PCR) (Negative) Influenza Type A (PCR) (Negative) Influenza Type B (PCR) (Negative) RSV (PCR) (Negative) Range/Units 01/21/24 01/21/24 01/21/24 10:30 10:30 10:30 WBC (4.4-10.8) 10^3/uL RBC (4.36-5.78) 10^6/uL Hgb (13.5-17.5) g/dL Hct (40.0-50.0) % MCV (80-95) fL MCH (27.0-33.0) pg MCHC (32.0-36.0) % RDW (11.8-14.1) % Plt Count (130-400) 10^3/uL MPV (8.0-11.0) fL Immature Gran % Neutrophils % Lymphocytes % Monocytes % Eosinophils % Basophils % Nucleated RBC % (0.0-0.3) % Absolute Neutrophils (1.2-6.7) 10^3/uL Absolute Lymphocytes (1.2-3.4) 10^3/uL Absolute Monocytes (0.1-0.8) 10^3/uL Absolute Eosinophils (0.0-0.7) 10^3/uL Absolute Basophils (0.0-0.2) 10^3/uL ESR (0-20) mm/hr D-Dimer (<500) ng/mlFEU VBG pH (7.31-7.41) VBG pCO2 (41-51) mmHg VBG pO2 mmHg VBG HCO3 (23-28) mmol/L VBG Total CO2 (24-29) mmol/L VBG O2 Saturation % VBG Base Excess (-2-3) mmol/L VBG Lactate (0.6-1.4) mmol/L Sodium Potassium Chloride Carbon Dioxide Anion Gap BUN 79 H Creatinine Cancelled 3.9 H* Est GFR (CKD-EPI 2020) Cancelled 14.32 Glucose Cancelled Calcium Magnesium (1.8-2.4) mg/dL Total Bilirubin AST ALT Alkaline Phosphatase Creatine Kinase (39-308) U/L Troponin I (< or =60) ng/L C-Reactive Protein NT-Pro-B Natriuret Pep (<300) pg/mL Total Protein Albumin Lipase (16-77) U/L Procalcitonin ng/mL COVID-19 Source SARS-CoV-2 (PCR) (Negative) Influenza Type A (PCR) (Negative) Influenza Type B (PCR) (Negative) RSV (PCR) (Negative) Range/Units 01/21/24 01/21/24 01/21/24 10:30 10:30 10:30 WBC (4.4-10.8) 10^3/uL RBC (4.36-5.78) 10^6/uL Hgb (13.5-17.5) g/dL Hct (40.0-50.0) % MCV (80-95) fL MCH (27.0-33.0) pg MCHC (32.0-36.0) % RDW (11.8-14.1) % Plt Count (130-400) 10^3/uL MPV (8.0-11.0) fL Immature Gran % Neutrophils % Lymphocytes % Monocytes % Eosinophils % Basophils % Nucleated RBC % (0.0-0.3) % Absolute Neutrophils (1.2-6.7) 10^3/uL Absolute Lymphocytes (1.2-3.4) 10^3/uL Absolute Monocytes (0.1-0.8) 10^3/uL Absolute Eosinophils (0.0-0.7) 10^3/uL Absolute Basophils (0.0-0.2) 10^3/uL ESR (0-20) mm/hr D-Dimer (<500) ng/mlFEU VBG pH (7.31-7.41) VBG pCO2 (41-51) mmHg VBG pO2 mmHg VBG HCO3 (23-28) mmol/L VBG Total CO2 (24-29) mmol/L VBG O2 Saturation % VBG Base Excess (-2-3) mmol/L VBG Lactate (0.6-1.4) mmol/L Sodium Potassium Chloride Carbon Dioxide Anion Gap BUN Creatinine Est GFR (CKD-EPI 2020) Glucose 110 H Calcium Cancelled 8.4 L Magnesium (1.8-2.4) mg/dL 2.4 Total Bilirubin Cancelled 0.6 AST Cancelled ALT Alkaline Phosphatase Creatine Kinase (39-308) U/L Troponin I (< or =60) ng/L C-Reactive Protein NT-Pro-B Natriuret Pep (<300) pg/mL Total Protein Albumin Lipase (16-77) U/L Procalcitonin ng/mL COVID-19 Source SARS-CoV-2 (PCR) (Negative) Influenza Type A (PCR) (Negative) Influenza Type B (PCR) (Negative) RSV (PCR) (Negative) Range/Units 01/21/24 01/21/24 01/21/24 10:30 10:30 10:30 WBC (4.4-10.8) 10^3/uL RBC (4.36-5.78) 10^6/uL Hgb (13.5-17.5) g/dL Hct (40.0-50.0) % MCV (80-95) fL MCH (27.0-33.0) pg MCHC (32.0-36.0) % RDW (11.8-14.1) % Plt Count (130-400) 10^3/uL MPV (8.0-11.0) fL Immature Gran % Neutrophils % Lymphocytes % Monocytes % Eosinophils % Basophils % Nucleated RBC % (0.0-0.3) % Absolute Neutrophils (1.2-6.7) 10^3/uL Absolute Lymphocytes (1.2-3.4) 10^3/uL Absolute Monocytes (0.1-0.8) 10^3/uL Absolute Eosinophils (0.0-0.7) 10^3/uL Absolute Basophils (0.0-0.2) 10^3/uL ESR (0-20) mm/hr D-Dimer (<500) ng/mlFEU VBG pH (7.31-7.41) VBG pCO2 (41-51) mmHg VBG pO2 mmHg VBG HCO3 (23-28) mmol/L VBG Total CO2 (24-29) mmol/L VBG O2 Saturation % VBG Base Excess (-2-3) mmol/L VBG Lactate (0.6-1.4) mmol/L Sodium Potassium Chloride Carbon Dioxide Anion Gap BUN Creatinine Est GFR (CKD-EPI 2020) Glucose Calcium Magnesium (1.8-2.4) mg/dL Total Bilirubin AST 11 L ALT Cancelled 9 L Alkaline Phosphatase Cancelled 112 Creatine Kinase (39-308) U/L 91 Troponin I (< or =60) ng/L < 50 C-Reactive Protein Cancelled NT-Pro-B Natriuret Pep (<300) pg/mL Total Protein Albumin Lipase (16-77) U/L Procalcitonin ng/mL COVID-19 Source SARS-CoV-2 (PCR) (Negative) Influenza Type A (PCR) (Negative) Influenza Type B (PCR) (Negative) RSV (PCR) (Negative) Range/Units 01/21/24 01/21/24 01/21/24 10:30 10:30 10:30 WBC (4.4-10.8) 10^3/uL RBC (4.36-5.78) 10^6/uL Hgb (13.5-17.5) g/dL Hct (40.0-50.0) % MCV (80-95) fL MCH (27.0-33.0) pg MCHC (32.0-36.0) % RDW (11.8-14.1) % Plt Count (130-400) 10^3/uL MPV (8.0-11.0) fL Immature Gran % Neutrophils % Lymphocytes % Monocytes % Eosinophils % Basophils % Nucleated RBC % (0.0-0.3) % Absolute Neutrophils (1.2-6.7) 10^3/uL Absolute Lymphocytes (1.2-3.4) 10^3/uL Absolute Monocytes (0.1-0.8) 10^3/uL Absolute Eosinophils (0.0-0.7) 10^3/uL Absolute Basophils (0.0-0.2) 10^3/uL ESR (0-20) mm/hr D-Dimer (<500) ng/mlFEU VBG pH (7.31-7.41) VBG pCO2 (41-51) mmHg VBG pO2 mmHg VBG HCO3 (23-28) mmol/L VBG Total CO2 (24-29) mmol/L VBG O2 Saturation % VBG Base Excess (-2-3) mmol/L VBG Lactate (0.6-1.4) mmol/L Sodium Potassium Chloride Carbon Dioxide Anion Gap BUN Creatinine Est GFR (CKD-EPI 2020) Glucose Calcium Magnesium (1.8-2.4) mg/dL Total Bilirubin AST ALT Alkaline Phosphatase Creatine Kinase (39-308) U/L Troponin I (< or =60) ng/L C-Reactive Protein 1.40 H NT-Pro-B Natriuret Pep (<300) pg/mL 85974 H Total Protein Cancelled 7.7 Albumin Cancelled 3.8 Lipase (16-77) U/L 24 Procalcitonin ng/mL COVID-19 Source SARS-CoV-2 (PCR) (Negative) Influenza Type A (PCR) (Negative) Influenza Type B (PCR) (Negative) RSV (PCR) (Negative) Range/Units 01/21/24 01/21/24 11:21 11:26 WBC (4.4-10.8) 10^3/uL RBC (4.36-5.78) 10^6/uL Hgb (13.5-17.5) g/dL Hct (40.0-50.0) % MCV (80-95) fL MCH (27.0-33.0) pg MCHC (32.0-36.0) % RDW (11.8-14.1) % Plt Count (130-400) 10^3/uL MPV (8.0-11.0) fL Immature Gran % Neutrophils % Lymphocytes % Monocytes % Eosinophils % Basophils % Nucleated RBC % (0.0-0.3) % Absolute Neutrophils (1.2-6.7) 10^3/uL Absolute Lymphocytes (1.2-3.4) 10^3/uL Absolute Monocytes (0.1-0.8) 10^3/uL Absolute Eosinophils (0.0-0.7) 10^3/uL Absolute Basophils (0.0-0.2) 10^3/uL ESR (0-20) mm/hr D-Dimer (<500) ng/mlFEU VBG pH (7.31-7.41) VBG pCO2 (41-51) mmHg VBG pO2 mmHg VBG HCO3 (23-28) mmol/L VBG Total CO2 (24-29) mmol/L VBG O2 Saturation % VBG Base Excess (-2-3) mmol/L VBG Lactate (0.6-1.4) mmol/L 1.2 Sodium Potassium Chloride Carbon Dioxide Anion Gap BUN Creatinine Est GFR (CKD-EPI 2020) Glucose Calcium Magnesium (1.8-2.4) mg/dL Total Bilirubin AST ALT Alkaline Phosphatase Creatine Kinase (39-308) U/L Troponin I (< or =60) ng/L C-Reactive Protein NT-Pro-B Natriuret Pep (<300) pg/mL Total Protein Albumin Lipase (16-77) U/L Procalcitonin ng/mL < 0.1 COVID-19 Source Nasopharynx SARS-CoV-2 (PCR) (Negative) Negative Influenza Type A (PCR) (Negative) Negative Influenza Type B (PCR) (Negative) Negative RSV (PCR) (Negative) Negative Quality:SDOH Health Related Social Needs: No Data to Display PFSH All Active Problems (Updated 01/21/24 @ 13:36 by GAGANDEEP Vitale) Acute renal failure (Acute) Cardiac murmur (Acute) Essential hypertension (Acute) Anxiety (Chronic) Polyneuropathy (Acute) 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 (Acute) Right foot drop (Acute) Pain in thoracic spine (Acute) Urinary retention (Acute) Dyspnea (Acute) Neuropathic pain (Acute) Idiopathic osteoarthritis (Acute) Glaucoma (Chronic) Pleural plaque (Acute) Actinic keratosis (Acute) Disorder of lung (Acute) Steatosis, liver (Acute) Diastolic heart failure (Acute) Congestive heart failure (Chronic) Dementia (Chronic) Generalized edema (Acute) Pain in lower limb (Acute) Insomnia (Acute) (HFpEF) heart failure with preserved ejection fraction (Acute) Restless leg syndrome (Acute) Cellulitis of lower extremity (Acute) Constipation (Acute) Decubital ulcer (Acute) Chronic anemia (Acute) 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 exposure (Acute) Respiratory failure with hypoxia (Acute) Bronchiectasis (Chronic) Nocturnal hypoxia (Acute) Foreign body in bladder and urethra (Acute) Dislodged Garcia catheter (Acute) Hematuria (Acute) Acute UTI (Acute) Abdominal pain (Acute) Diabetes mellitus (Chronic) BPH (benign prostatic hyperplasia) (Chronic) Essential hypertension (Acute) Lung infiltrate (Acute) UTI (urinary tract infection) (Acute) 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 [facility] [place] of [place] (~1999) Right hip, later revised in 2005 left side 2007 Rotator Cuff Repair (~1996) Right Repair of inguinal hernia (08/31/11) Right sided with orchiectomy Endoscopic Carpal Tunnel release (05/04/15) Right by Dr. Ayala Extraction of cataract (02/15/16) [place] R with IOL; and L as well, Dr. Dickinson in [place] Family History Mother , CVA at age 85. Diabetes age 50 Essential hypertension Stroke Uterine cancer Father , Colon CA at age 87. Colon cancer Sister Breast cancer Sister Ovarian cancer Sister Ovarian cancer Sister No problems noted. Sister No problems noted. Sister No problems noted. Sister No problems noted. Sister No problems noted. Brother Diabetes Brother No problems noted. Brother No problems noted. Social History Smoking/Tobacco Use Status: Never Smoking risk assessment performed?: Yes Alcohol Intake: never Drug use: Never Substance use type: does not use Housing: house Do you feel safe at home: Yes Do you feel safe in your relationship?: Yes Additional Social history: lives with .
[2024-01-21 10:49] LABS: BE (Venous) -4 mmol/L (-2-3); HCO3 (Venous) 23 mmol/L (23-28); O2 Sat (Venous) 83 %; TCO2 (Venous) 22 mmol/L (24-29); pCO2 (Venous) 54 mmHg (41-51); pH (Venous) 7.25 (7.31-7.41); pO2 (Venous) 52 mmHg
[2024-01-21 10:51] LABS: Abs Immature Grans 0.02 10^3/uL (0.0-0.06); Absolute Basophil Count 0.06 10^3/uL (0.0-0.2); Absolute Eosinophil Count 0.08 10^3/uL (0.0-0.7); Absolute Lymphocyte Count 0.91 10^3/uL (1.2-3.4); Absolute Monocyte Count 0.76 10^3/uL (0.1-0.8); Absolute Neutrophil Count 5.23 10^3/uL (1.2-6.7); Basophils % 0.8; Eosinophils % 1.1; HCT 33.7 % (40.0-50.0); Immature Grans % 0.3; Lymphocytes % 12.9; MCH 32.2 pg (27.0-33.0); MCHC 32.6 % (32.0-36.0); MCV 99 fL (80-95); MPV 10.6 fL (8.0-11.0); Monocytes % 10.8; Neutrophils % 74.1; Platelet Count 215 10^3/uL (130-400); RBC 3.42 10^6/uL (4.36-5.78); RDW 15.2 % (11.8-14.1); RDW-SD 54.7 fL; WBC 7.06 10^3/uL (4.4-10.8)
[2024-01-21] MEDS: Albuterol/Ipratropium 3 ML UPD VIAL UPD ×2 (10:52→21:45)
[2024-01-21 10:53] LABS: ESR 44 mm/hr (0-20)
[2024-01-21] MEDS: Normal Saline 500 ML IV (10:55)
[2024-01-21 11:21] LABS: D-Dimer 3175 ng/mlFEU (<500)
[2024-01-21 11:24] LABS: ALT 9 U/L (16-63); AST 11 U/L (15-37); Albumin 3.8 g/dL (3.4-5.0); Alkaline Phosphatase 112 U/L (46-116); Anion Gap 11.8 mmol/L (3-11); BUN 79 mg/dL (7-18); Bilirubin, Total 0.6 mg/dL (0.2-1.0); CO2 24.2 mmol/L (21.0-32.0); Calcium 8.4 mg/dL (8.5-10.1); Chloride 98 mmol/L (98-107); Creatine Kinase 91 U/L (39-308); Estimated GFR 14.32 (mL/min/1.73m2); Glucose 110 mg/dL (74-106); Lipase 24 U/L (16-77); Magnesium 2.4 mg/dL (1.8-2.4); NT-proBNP 12890 pg/mL (<300); Potassium 4.4 mmol/L (3.5-5.1); Sodium 134 mmol/L (136-145); Total Protein 7.7 g/dL (6.4-8.2); Troponin I < 50 ng/L (< or =60)
[2024-01-21 11:26] LABS: Lactate 1.2 mmol/L (0.6-1.4)
[2024-01-21 11:27] LABS: CREATININE 3.9 mg/dL (0.70-1.30)
--- NOTE | 2024-01-21 11:30 | DI.US_ITS ---
Exam(s) US EXTREMITY VENOUS BI EXAM: US EXTREMITY VENOUS BI CLINICAL HISTORY: elevated d-dimer, leg swelling bilateral. TECHNIQUE: Bilateral lower extremity venous ultrasound performed using grayscale, color-flow, and sp ectral Doppler analysis. COMPARISON: No exams were available for comparison FINDINGS: The bilateral common femoral, femoral and popliteal veins demonstrate normal compressibility, augment ation, and color Doppler. The posterior tibial veins are patent. IMPRESSION: Right: Negative for DVT Left: Negative for DVT DATA REPOSITORY:
--- NOTE | 2024-01-21 11:56 | DI.RAD_ITS ---
Exam(s) XR PORTABLE CHEST AP EXAM: XR PORTABLE CHEST AP CLINICAL HISTORY: wheezing TECHNIQUE: 2D digital imaging was performed. COMPARISON: CR,XR XR CHEST 2V PA LATERAL from 10/07/2023 CR,XR XR ABDOMEN FLAT PLATE from 10/07/2023 FINDINGS: Exam limited by poor pulmonary inflation and motion. Leads overlie the chest. LUNGS: Right pleural effusion again identified. Adjacent atelectasis. No left effusion. HEART: Enlarged, stable. AORTA: Normal diameter. BONES: Unremarkable for age. Soft tissues: Unremarkable. IMPRESSION: Stable appearance of moderate right pleural effusion. Adjacent atelectasis. Poor pulmonary inflatio n. DATA REPOSITORY: RADIATION DOSE DELIVERED:
[2024-01-21 11:57] LABS: Procalcitonin < 0.1 ng/mL
[2024-01-21 12:22] LABS: COVID-19 PCR Negative (Negative); Influenza A PCR Negative (Negative); Influenza B PCR Negative (Negative); RSV PCR Negative (Negative)
[2024-01-21 12:26] LABS: Source Nasopharynx
--- NOTE | 2024-01-21 12:45 | DI.CT_ITS ---
Exam(s) CT ABDOMEN PELVIS WO EXAM: CT ABDOMEN PELVIS WO CLINICAL HISTORY: GARO, ?obstructive pathology. TECHNIQUE: Imaging Protocol: Axial computed tomography images with coronal and sagittal reformatted images were created and reviewed. Oral: / no COMPARISON: CT CT ABDOMEN PELVIS W from 05/03/2023 FINDINGS: Lung Bases: Moderate right pleural effusion. Calcified pleural plaques. Heart is enlarged. Coronar y artery calcifications. Bibasilar atelectasis, right greater than left. Liver: Normal density. No suspicious mass. Gallbladder and biliary tract: No radiodense calculus or biliary dilation. Pancreas: Normal somewhat atrophic. No abnormal calcifications or inflammatory process. Spleen: Normal. Kidneys: Normal size, contour and axis. No radiodense stones or obstructive uropathy. No suspicious m asses seen. Adrenal glands: No masses seen. Lymph nodes: Within normal limits. Vasculature: Abdominal aorta non-dilated. Soft tissues: Unremarkable. Bladder: No wall thickening. Partially obscured by artifact. Bowel: No obstruction or bowel wall thickening. Peritoneal cavity: Multiple surgical clips create artifact in the midline of the upper abdomen. No a scites, collection or mesenteric inflammatory response. Reproductive organs: Prostate is enlarged impresses on the base of the bladder. Prostate is partiall y obscured by artifact. Bones: Bilateral hip prostheses creates artifact in the low pelvis. Degenerative and postsurgical c hanges of the lumbar spine. IMPRESSION: No renal calcification or hydronephrosis. Enlarged prostate. Moderate size right pleural effusion and adjacent atelectasis. RADIATION DOSE DELIVERED: Total DLP DATA REPOSITORY: All CT scans at this facility are submitted to the National Radiology Data Registry (NRDR) Dose Index Registry (DIR) with the [employer] (ACR). RADIATION OPTIMIZATION: All CT scans at this facility use at least one of these dose optimization te chniques: automated exposure control; mA and/or kV adjustment per patient size (includes targeted exa ms where dose is matched to clinical indication); or iterative reconstruction.
--- NOTE | 2024-01-21 13:40 | W.PM.HP.N ---
Date of service: 01/21/24 Time of Service: 13:40 Assessment and Plan Assessment and plan (1) Acute renal failure: Status: Acute Assessment and plan: markedly elevated since lab month with creatinine now at 3.9 hold nephrotoxic drugs including losaratan and lasix. will update echo ? cardiorenal, does appear dry will give gentle IV fluids no evidence of hydro or obstructive uropathy on CT scan, monitor for retention (2) Essential hypertension: Status: Acute Assessment and plan: hold losartan and lasix, continue bb monitor and adjust meds as needed. (3) (HFpEF) heart failure with preserved ejection fraction: Status: Acute Assessment and plan: echo pending monitor I/Os and daily weights. Qualifiers: Heart failure chronicity: acute on chronic Qualified Code(s): I50.33 - Acute on chronic diastolic (congestive) heart failure (4) BPH (benign prostatic hyperplasia): Status: Chronic Assessment and plan: no evidence of obstructive uropathy. monitor for retention continue home medication (5) Pulmonary hypertension: Assessment and plan: RVSP on echo in 08/20 was 48 mmHg. As above (6) Pleural effusion: Status: Acute Assessment and plan: The size of the effusion is stable. Consider thoracentesis. (7) DVT prophylaxis: Status: Acute Assessment and plan: Sc heparin (8) Discharge planning issues: Status: Acute Assessment and plan: Full code (discussed in the ED). care management will follow for discharge planning discussed with Dr Stiles History of Present Illness History of Present Illness Chief Complaint: weakness Narrative: Presents to the emergency department with progressive generalized weakness and bilateral lower extremity edema Workup in the emergency department shows acute kidney injury with a creatinine up to 3.7. CT imaging showed no obstructive uropathy. 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 (Acute) Right foot drop (Acute) Pain in thoracic spine (Acute) Urinary retention (Acute) Dyspnea (Acute) Neuropathic pain (Acute) Idiopathic osteoarthritis (Acute) Glaucoma (Chronic) Pleural plaque (Acute) Actinic keratosis (Acute) Disorder of lung (Acute) Steatosis, liver (Acute) Diastolic heart failure (Acute) Congestive heart failure (Chronic) Dementia (Chronic) Generalized edema (Acute) Pain in lower limb (Acute) Insomnia (Acute) (HFpEF) heart failure with preserved ejection fraction (Acute) Restless leg syndrome (Acute) Cellulitis of lower extremity (Acute) Constipation (Acute) Decubital ulcer (Acute) Chronic anemia (Acute) 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 exposure (Acute) Respiratory failure with hypoxia (Acute) Bronchiectasis (Chronic) Nocturnal hypoxia (Acute) Dislodged Garcia catheter (Acute) Hematuria (Acute) Acute UTI (Acute) Abdominal pain (Acute) Diabetes mellitus (Chronic) BPH (benign prostatic hyperplasia) (Chronic) Essential hypertension (Acute) Lung infiltrate (Acute) UTI (urinary tract infection) (Acute) 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 [facility] [place] of [place] (~[place]) Right hip, later revised in 2005 left side 2006 Rotator Cuff Repair (~1996) Right Repair of inguinal hernia (08/31/11) Right sided with orchiectomy Endoscopic Carpal Tunnel release (05/04/15) Right by Dr. Ayala Extraction of cataract (02/15/16) [place] R with IOL; and L as well, Dr. Dickinson in [place] Family History Mother , CVA at age 85. Diabetes age 50 Essential hypertension Stroke Uterine cancer Father , Colon CA at age 87. Colon cancer Sister Breast cancer Sister Ovarian cancer Sister Ovarian cancer Sister No problems noted. Sister No problems noted. Sister No problems noted. Sister No problems noted. Sister No problems noted. Brother Diabetes Brother No problems noted. Brother No problems noted. Social History Smoking/Tobacco Use Status: Never Smoking risk assessment performed?: Yes Alcohol Intake: never Drug use: Never Substance use type: does not use Housing: house Do you feel safe at home: Yes Do you feel safe in your relationship?: Yes Additional Social history: lives with . Meds Allergies and Home Medications Allergies Allergy/AdvReac Type Severity Reaction Status Date / Time diclofenac Allergy Mild Other (See Verified 01/21/24 10:25 Comment) aspirin AdvReac Intermediate GI Bleeding Verified 01/21/24 10:25 NSAIDS (Non-Steroidal AdvReac Intermediate GI Bleeding Verified 01/21/24 10:25 Anti-Inflamma Home Medications Medication Instructions Recorded Confirmed Type acetaminophen 500 mg tablet 1,000 mg PO Q4H PRN 07/09/15 01/21/24 History naloxone 4 mg/actuation nasal 4 mg NS as directed 1 day #2 sprays 01/23/18 01/21/24 Rx spray (Narcan) cholecalciferol (vitamin D3) 25 1,000 units PO DAILY 03/14/18 01/21/24 History mcg (1,000 unit) tablet oxycodone 10 mg tablet 10 mg PO QID PRN Pain 06/13/18 01/21/24 History albuterol sulfate 2.5 mg/3 mL 2.5 mg inhalation Q6H PRN 04/21/19 01/21/24 History (0.083 %) solution for nebulization tamsulosin 0.4 mg capsule 0.4 mg PO HS 04/21/19 01/21/24 History linaclotide 290 mcg capsule 290 mcg PO DAILY PRN 05/22/19 01/21/24 History (Linzess) fluticasone fur. 100 mcg-umeclid 1 inh inhalation QAM 02/24/21 01/21/24 History 62.5 mcg-vilant 25 mcg inhalat.powder (Trelegy Ellipta) ipratropium 0.5 mg-albuterol 3 mg 3 ml inhalation DIRECTED 02/24/21 01/21/24 History (2.5 mg base)/3 mL nebulization soln albuterol sulfate 90 mcg/actuation 2 inh inhalation Q4H PRN 03/02/21 01/21/24 History aerosol inhaler (ProAir HFA) polyethylene glycol 3350 17 17 g PO DAILY PRN Constipation 03/02/21 01/21/24 History gram/dose oral powder gabapentin 600 mg tablet 600 mg PO QID 05/03/23 01/21/24 History quetiapine 25 mg tablet 75 mg PO HS 08/03/23 01/21/24 History sodium chloride 7 % for See Rx Instructions .Route 08/27/23 01/21/24 Rx nebulization .COMPLEX #240 mL metoprolol succinate 100 mg 100 mg PO DAILY 10/05/23 01/21/24 History tablet,extended release 24 hr furosemide 40 mg tablet 40 mg PO DAILY 10/09/23 01/21/24 History latanoprost 0.005 % eye drops 1 drp ophthalmic (eye) DAILY 11/21/23 01/21/24 History potassium chloride 10 mEq 10 meq PO DAILY 11/21/23 01/21/24 History capsule,extended release silver sulfadiazine 1 % topical 1 applic topical BID 11/21/23 01/21/24 History cream (Silvadene) losartan 100 mg tablet 100 mg PO DAILY 01/21/24 01/21/24 History potassium chloride 10 mEq 10 meq PO DAILY 01/21/24 01/21/24 History tablet,extended release Results Labs 01/22/24 06:18 01/22/24 06:18 Labs: Laboratory Results - last 24 hr 01/21/24 01/21/24 01/21/24 10:30 10:30 10:30 WBC 7.06 RBC 3.42 L Hgb 11.0 L Hct 33.7 L MCV 99 H MCH 32.2 MCHC 32.6 RDW 15.2 H Plt Count 215 MPV 10.6 Immature Gran % 0.3 Neutrophils % 74.1 Lymphocytes % 12.9 Monocytes % 10.8 Eosinophils % 1.1 Basophils % 0.8 Nucleated RBC % 0.0 Absolute Neutrophils 5.23 Absolute Lymphocytes 0.91 L Absolute Monocytes 0.76 Absolute Eosinophils 0.08 Absolute Basophils 0.06 ESR 44 H D-Dimer 3175 H VBG pH 7.25 L VBG pCO2 54 H VBG pO2 52 VBG HCO3 23 VBG Total CO2 22 L VBG O2 Saturation 83 VBG Base Excess -4 L VBG Lactate Sodium Cancelled 134 L Potassium Cancelled 4.4 Chloride Cancelled Carbon Dioxide Anion Gap BUN Creatinine Est GFR (CKD-EPI 2020) Glucose Calcium Magnesium Total Bilirubin AST ALT Alkaline Phosphatase Creatine Kinase Troponin I C-Reactive Protein NT-Pro-B Natriuret Pep Total Protein Albumin Lipase Procalcitonin COVID-19 Source SARS-CoV-2 (PCR) Influenza Type A (PCR) Influenza Type B (PCR) RSV (PCR) 01/21/24 01/21/24 01/21/24 10:30 10:30 10:30 WBC RBC Hgb Hct MCV MCH MCHC RDW Plt Count MPV Immature Gran % Neutrophils % Lymphocytes % Monocytes % Eosinophils % Basophils % Nucleated RBC % Absolute Neutrophils Absolute Lymphocytes Absolute Monocytes Absolute Eosinophils Absolute Basophils ESR D-Dimer VBG pH VBG pCO2 VBG pO2 VBG HCO3 VBG Total CO2 VBG O2 Saturation VBG Base Excess VBG Lactate Sodium Potassium Chloride 98 Carbon Dioxide Cancelled 24.2 Anion Gap Cancelled 11.8 H BUN Cancelled Creatinine Est GFR (CKD-EPI 2020) Glucose Calcium Magnesium Total Bilirubin AST ALT Alkaline Phosphatase Creatine Kinase Troponin I C-Reactive Protein NT-Pro-B Natriuret Pep Total Protein Albumin Lipase Procalcitonin COVID-19 Source SARS-CoV-2 (PCR) Influenza Type A (PCR) Influenza Type B (PCR) RSV (PCR) 01/21/24 01/21/24 01/21/24 10:30 10:30 10:30 WBC RBC Hgb Hct MCV MCH MCHC RDW Plt Count MPV Immature Gran % Neutrophils % Lymphocytes % Monocytes % Eosinophils % Basophils % Nucleated RBC % Absolute Neutrophils Absolute Lymphocytes Absolute Monocytes Absolute Eosinophils Absolute Basophils ESR D-Dimer VBG pH VBG pCO2 VBG pO2 VBG HCO3 VBG Total CO2 VBG O2 Saturation VBG Base Excess VBG Lactate Sodium Potassium Chloride Carbon Dioxide Anion Gap BUN 79 H Creatinine Cancelled 3.9 H* Est GFR (CKD-EPI 2020) Cancelled 14.32 Glucose Cancelled Calcium Magnesium Total Bilirubin AST ALT Alkaline Phosphatase Creatine Kinase Troponin I C-Reactive Protein NT-Pro-B Natriuret Pep Total Protein Albumin Lipase Procalcitonin COVID-19 Source SARS-CoV-2 (PCR) Influenza Type A (PCR) Influenza Type B (PCR) RSV (PCR) 01/21/24 01/21/24 01/21/24 10:30 10:30 10:30 WBC RBC Hgb Hct MCV MCH MCHC RDW Plt Count MPV Immature Gran % Neutrophils % Lymphocytes % Monocytes % Eosinophils % Basophils % Nucleated RBC % Absolute Neutrophils Absolute Lymphocytes Absolute Monocytes Absolute Eosinophils Absolute Basophils ESR D-Dimer VBG pH VBG pCO2 VBG pO2 VBG HCO3 VBG Total CO2 VBG O2 Saturation VBG Base Excess VBG Lactate Sodium Potassium Chloride Carbon Dioxide Anion Gap BUN Creatinine Est GFR (CKD-EPI 2020) Glucose 110 H Calcium Cancelled 8.4 L Magnesium 2.4 Total Bilirubin Cancelled 0.6 AST Cancelled ALT Alkaline Phosphatase Creatine Kinase Troponin I C-Reactive Protein NT-Pro-B Natriuret Pep Total Protein Albumin Lipase Procalcitonin COVID-19 Source SARS-CoV-2 (PCR) Influenza Type A (PCR) Influenza Type B (PCR) RSV (PCR) 01/21/24 01/21/24 01/21/24 10:30 10:30 10:30 WBC RBC Hgb Hct MCV MCH MCHC RDW Plt Count MPV Immature Gran % Neutrophils % Lymphocytes % Monocytes % Eosinophils % Basophils % Nucleated RBC % Absolute Neutrophils Absolute Lymphocytes Absolute Monocytes Absolute Eosinophils Absolute Basophils ESR D-Dimer VBG pH VBG pCO2 VBG pO2 VBG HCO3 VBG Total CO2 VBG O2 Saturation VBG Base Excess VBG Lactate Sodium Potassium Chloride Carbon Dioxide Anion Gap BUN Creatinine Est GFR (CKD-EPI 2020) Glucose Calcium Magnesium Total Bilirubin AST 11 L ALT Cancelled 9 L Alkaline Phosphatase Cancelled 112 Creatine Kinase 91 Troponin I < 50 C-Reactive Protein Cancelled NT-Pro-B Natriuret Pep Total Protein Albumin Lipase Procalcitonin COVID-19 Source SARS-CoV-2 (PCR) Influenza Type A (PCR) Influenza Type B (PCR) RSV (PCR) 01/21/24 01/21/24 01/21/24 10:30 10:30 10:30 WBC RBC Hgb Hct MCV MCH MCHC RDW Plt Count MPV Immature Gran % Neutrophils % Lymphocytes % Monocytes % Eosinophils % Basophils % Nucleated RBC % Absolute Neutrophils Absolute Lymphocytes Absolute Monocytes Absolute Eosinophils Absolute Basophils ESR D-Dimer VBG pH VBG pCO2 VBG pO2 VBG HCO3 VBG Total CO2 VBG O2 Saturation VBG Base Excess VBG Lactate Sodium Potassium Chloride Carbon Dioxide Anion Gap BUN Creatinine Est GFR (CKD-EPI 2020) Glucose Calcium Magnesium Total Bilirubin AST ALT Alkaline Phosphatase Creatine Kinase Troponin I C-Reactive Protein 1.40 H NT-Pro-B Natriuret Pep 72663 H Total Protein Cancelled 7.7 Albumin Cancelled 3.8 Lipase 24 Procalcitonin COVID-19 Source SARS-CoV-2 (PCR) Influenza Type A (PCR) Influenza Type B (PCR) RSV (PCR) 01/21/24 01/21/24 11:21 11:26 WBC RBC Hgb Hct MCV MCH MCHC RDW Plt Count MPV Immature Gran % Neutrophils % Lymphocytes % Monocytes % Eosinophils % Basophils % Nucleated RBC % Absolute Neutrophils Absolute Lymphocytes Absolute Monocytes Absolute Eosinophils Absolute Basophils ESR D-Dimer VBG pH VBG pCO2 VBG pO2 VBG HCO3 VBG Total CO2 VBG O2 Saturation VBG Base Excess VBG Lactate 1.2 Sodium Potassium Chloride Carbon Dioxide Anion Gap BUN Creatinine Est GFR (CKD-EPI 2020) Glucose Calcium Magnesium Total Bilirubin AST ALT Alkaline Phosphatase Creatine Kinase Troponin I C-Reactive Protein NT-Pro-B Natriuret Pep Total Protein Albumin Lipase Procalcitonin < 0.1 COVID-19 Source Nasopharynx SARS-CoV-2 (PCR) Negative Influenza Type A (PCR) Negative Influenza Type B (PCR) Negative RSV (PCR) Negative Last Vital Signs Temp 36.5 C 01/21/24 10:19 Pulse 53 L 01/21/24 12:15 Resp 20 01/21/24 10:19 BP 124/66 01/21/24 12:15 Pulse Ox 89 L 01/21/24 12:20 Time Spent Time spent with Patient: 40-54 minutes Time was spent: preparing to see the patient(eg.review tests), obtaining and/or reviewing separately otained hiistory, ordering medications,tests, procedures, indepentently interpreting results and counseling the patient
[2024-01-21 16:42] LABS: Anion Gap 11.1 mmol/L (3-11); CO2 24.9 mmol/L (21.0-32.0); Calcium 8.5 mg/dL (8.5-10.1); Chloride 100 mmol/L (98-107); Estimated GFR 14.77 (mL/min/1.73m2); Glucose 101 mg/dL (74-106); Potassium 4.3 mmol/L (3.5-5.1); Sodium 136 mmol/L (136-145)
[2024-01-21 16:43] LABS: BUN 80 mg/dL (7-18)
[2024-01-21 16:45] LABS: CREATININE 3.8 mg/dL (0.70-1.30)
[2024-01-21] MEDS: Methylnaltrexone 12 MG/0.6 ML VIAL 6 MG SC (18:28)
[2024-01-21] MEDS: Budesonide/Formoterol 80/4.5 6.9 GM 60 PUFF INH IH (20:03)
[2024-01-21] MEDS: Normal Saline 1,000 ML 100 ML IV (20:26)
[2024-01-21] MEDS: Normal Saline Flush 10 ML SYR IVP (20:27)
[2024-01-21] MEDS: Heparin 5,000 UNITS/ML VIAL 5000 UNITS SC (20:31)
[2024-01-21] MEDS: Gabapentin 600 MG TAB 300 MG PO (20:31)
[2024-01-21] MEDS: Lidocaine 2% Jelly 6 ML SYR (20:31)
[2024-01-21 20:37] LABS: Bilirubin Negative (Negative); Blood Moderate (Negative); Clarity Clear (Clear); Glucose Negative (Negative); Ketones Negative (Negative); Leukocyte Esterase Large (Negative); Nitrite Positive (Negative); Urobilinogen 0.2 mg/dL (Up to 0.2)
[2024-01-21] MEDS: oxyCODONE 5 MG TAB PO (20:38)
[2024-01-21 20:48] LABS: Bacteria Few HPF (Negative); C & S Indicated? Yes; Casts Negative LPF (Negative); Crystals Negative HPF (Negative); Epithelial Cells Rare HPF (Negative); Mucus Negative (Negative); WBC >50 HPF (0-5)
[2024-01-21] MEDS: Tamsulosin 0.4 MG CAPCR PO (21:56)
[2024-01-21] MEDS: QUEtiapine 25 MG TAB 75 MG PO (21:56)
[2024-01-22] VITALS (8 sets, daily range): BP systolic 113–114; BP diastolic 66–74; PULSE 62–83; RESP 2–18; TEMP 36.4–36.6; O2SAT 92–96
[2024-01-22] MEDS: Normal Saline Flush 10 ML SYR IVP ×3 (06:04→13:47)
[2024-01-22 06:57] LABS: Abs Immature Grans 0.01 10^3/uL (0.0-0.06); Absolute Basophil Count 0.05 10^3/uL (0.0-0.2); Absolute Eosinophil Count 0.13 10^3/uL (0.0-0.7); Absolute Lymphocyte Count 1.37 10^3/uL (1.2-3.4); Absolute Monocyte Count 0.65 10^3/uL (0.1-0.8); Absolute Neutrophil Count 3.24 10^3/uL (1.2-6.7); Basophils % 0.9; Eosinophils % 2.4; HCT 32.1 % (40.0-50.0); HGB 10.3 g/dL (13.5-17.5); Immature Grans % 0.2; Lymphocytes % 25.1; MCH 31.7 pg (27.0-33.0); MCHC 32.1 % (32.0-36.0); MCV 99 fL (80-95); Monocytes % 11.9; Neutrophils % 59.5; Platelet Count 205 10^3/uL (130-400); RBC 3.25 10^6/uL (4.36-5.78); RDW 15.2 % (11.8-14.1); WBC 5.45 10^3/uL (4.4-10.8)
[2024-01-22 07:14] LABS: BUN 75 mg/dL (7-18); Calcium 8.5 mg/dL (8.5-10.1); Chloride 102 mmol/L (98-107); Estimated GFR 14.77 (mL/min/1.73m2); Glucose 101 mg/dL (74-106); Sodium 138 mmol/L (136-145)
[2024-01-22 07:19] LABS: CREATININE 3.8 mg/dL (0.70-1.30)
[2024-01-22] MEDS: Tiotropium Bromide-Respimat 10 PUFF INH IH (08:00)
[2024-01-22] MEDS: Budesonide/Formoterol 80/4.5 6.9 GM 60 PUFF INH IH ×2 (08:00→20:00)
--- NOTE | 2024-01-22 09:19 | RESPIRATORY ---
Patient advised he wears 2L Oxygen at Night at baseline. DME: Juan
--- NOTE | 2024-01-22 09:30 | DI.US_ITS ---
APPROVED REPORT EXAM: Comprehensive 2D, Doppler, and color-flow Echocardiogram Patient Location: In-Patient Room/Bed: 210 Gis Manager: Yolie Jeffrey RDCS (AE) Indications: CHF, Renal failure Other Information Study Quality: Adequate. Technically limited study due to inability to position patient exam done sup ine bedside. Conclusion Moderate concentric left ventricular hypertrophy. EF is 60%. Wall motion is normal Normal right ventricualr size and function Left atrium is moderately dilated. Right atrium is mildly dilated Aortic valve is sclerotic and trileaflet without stenosis or regurgitation Normal mitral valve with midl to moderate regurgitation Normal tricuspid vavle with moderate regurgitation Estimated right ventricular systolic pressure is 49 mmHg Echo report is similar to July 2023 Wall motion Left Ventricle The left ventricle is normal size. The left ventricular systolic function is normal. The left ventric ular ejection fraction is within the normal range. Moderate concentric left ventricular hypertrophy. There is normal LV segmental wall motion. There is no ventricular septal defect visualized. LVEF is 6 0%. Right Ventricle The right ventricle is normal size. The right ventricular systolic function is normal. Atria The left atrium size is moderately dilated The right atrium size is mildly dilated The interatrial se ptum is intact with no evidence for an atrial septal defect. Aortic Valve The Aortic valve is sclerotic. Aortic valve is trileaflet. There is no aortic valvular stenosis. No a ortic regurgitation is present. Mitral Valve The mitral valve is normal in structure. No evidence of mitral valve stenosis. Mild to moderate lawanda l regurgitation. Tricuspid Valve The tricuspid valve is normal in structure. There is no tricuspid valve stenosis. Moderate tricuspid regurgitation. The RVSP is 46.9mmHg. Pulmonic Valve The pulmonary valve is normal in structure. There is no pulmonic valvular stenosis. Mild pulmonic reg urgitation. Great Vessels The aortic root is normal in size. The ascending aorta is mildly dilated. Aortic arch is not well vis ualized. The IVC is plethoric. Pericardium There is no pericardial effusion. 2D Dimensions IVSD d PLAX 1.50 cm M: 0.6-1.2 Ao Root d 3.34 cm M: 3.1 - 3.7 LVPW d PLAX 1.50 cm M: 0.6 - 1.2 Ao Asc Diam d 3.86 cm M: 2.6 - 3.4 LVID d PLAX 4.40 cm M: 4.2 - 5.8 LVDs 3.10 cm M: 2.5 - 4.0 LV EF Teichholz 57.0 % FS 29.66 % LV EDV (Teich) 86.5 mL LV ESV (Teich) 37.2 mL M-Mode TAPSE 1.76 cm (M/F) >1.7 Auto EF LV EDV A4C 123.6 mL LV EDV A2C 119.7 mL LV EDV BP 121.4 mL LV ESV A4C 45.5 mL LV ESV A2C 48.0 mL LV ESV BP 47.0 mL LVEF(%) A4C 63.2 % LVEF(%) A2C 59.9 % LVEF(%) BP 61.3 % LV SV A4C 78.1 ml LV SV A2C 71.7 ml LV SV BP 74.4 ml LV CO A4C 5.2 L/min LV CO A2C 4.7 L/min LV CO BP 5.0 L/min HR A4C 66.67 BPM HR A2C 65.94 BPM LV EDV Index (BP) LA Volume LA Length A4C 5.6 cm LA Length A2C 5.9 cm LA Area A4C s 19.96 cm2 LA Area A2C s 18.89 cm2 LA Vol A4C A-L 60.65 mL LA Vol A2C A-L 51.57 mL LA Vol Biplane A-L 57.4 mL LA Vol/BSA A4C A-L LA Vol/BSA A2C A-L LA Vol/BSA BP A-L 26.3 mL/m2 LA Vol A4C MOD 58.0 mL LA Vol A2C MOD 49.3 mL LA Vol BP MOD 54.7 mL RA Volume RA Area A4C 16.4 cm2 RA ESV A4C (A-L) 43.6mL RA Vol/BSA A4C A-L RA Length A4C 5.3 cm RA ESV A4C (MOD) 41.1mL LV Diastology MV E' medial 0.058 (>0.07 m/s) MV E Vmax 1.19 (0.4-1.3 m/s) MV E/E' MED 20.47 (<14) MV A Vmax 0.65 (0.4-1.3 m/s) MV E' lateral 0.086 (>0.1 m/s) E/A Ratio 1.8 MV E/E' LAT 13.85 (<14) MV E' Average 0.072 m/s MV E/E'(average) 16.52 Aortic Valve AoV Vmax 1.97 m/s LVOT Vmax 0.92 m/s AoV Peak Grad 15.5 mmHg LVOT Peak Grad 3.4 mmHg AoV Area (Vmax) 1.47 cm2 LVOT VTI 0.214 m AoV VTI 0.419 m LVOT Mean Grad 2.1 mmHg AoV Mean Carlos. 1.36 m/s LVOT SV 67.33 mL AoV Mean Grad 8.6 mmHg LVOT Diam s 1.95 cm AoV Area (VTI) 1.61 cm2 Velocity Ratio 0.47 Mitral Valve MV DT 162 (160-240 msec) Pulmonary Valve PV Vmax 1.13 (0.5-1.5 m/s) RVOT Vmax 0.95 m/s PV Peak Grad 5.1 mmHg RVOT Peak Gr. 3.6 mmHg PV Mean Carlos 0.76 m/s RVOT VTI 0.195 m PV Mean Grad 2.6 mmHg RVOT Mean Gr. 1.8 mmHg Tricuspid Valve RA Pressure 8.00 mmHg TR Vmax 3.12 m/s TV S' 0.14 m/s TR Peak Grad 38.9 mmHg RVSP (TR) 46.9 mmHg
--- NOTE | 2024-01-22 09:56 | PDOC.CMIN ---
Date of service: 01/22/24 Time of Service: 09:57 Care Management Initial Assmt Initial Assessment REASON FOR HOSPITALIZATION:: Acute renal failure PREVIOUS FUNCTIONAL STATUS/SOCIAL/FAMILY SUPPORTS:: Jamie lives in [place] with his , Aydee. They have three adult children. Aydee is very involved in the care of Jamie, and appreciates being informed about his care while in the hospital. CURRENT FUNCTIONAL STATUS:: Phoenix was lying in bed when CM met with him. He was resting, but was awoken easily to CM's voice. He stated that he is doing well today, and is looking forward to returning home once he is medically ready. CM confirmed that he will have a urology consult, and will work with PT while inpatient. CM called his , Aydee, and provided an update. She was very appreciative of the update, and asked if Phoenix would be home in time to celebrate [facility]. CM discussed this with the provider, who stated that he will likely be ready for discharge in 48hours, if he continues to improve. CM will continue to follow. ADVANCE DIRECTIVES:: Not on file. Has patient been provided with info about the portal/API?: Yes Did the patient sign up for the portal?: No CODE STATUS:: Full Code INSURANCE COVERAGE / FINANCIAL ISSUES:: [facility] MCR replacement CURRENT HOME/COMMUNITY SERVICES/EQUIPMENT:: FWW, bedside commode PRIMARY CARE PHYSICIAN:: Yvonne Solorio POTENTIAL DISCHARGE NEEDS:: Evaluations for further needs, follow up appointments. PATIENT/FAMILY EDUCATION NEEDS:: Review discharge instructions and limitations, discussion of self care needs including ask me three. ANTICIPATED BARRIERS TO DISCHARGE:: None identified. TRANSPORTATION:: Via private vehicle by family. PLAN:: Anticipate Jamie will return home once medically cleared. He will be driven home via private vehicle by family. He will follow up with his PCP and discharge plan of care. CM will continue to follow. 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 (Acute) Right foot drop (Acute) Pain in thoracic spine (Acute) Urinary retention (Acute) Dyspnea (Acute) Neuropathic pain (Acute) Idiopathic osteoarthritis (Acute) Glaucoma (Chronic) Pleural plaque (Acute) Actinic keratosis (Acute) Disorder of lung (Acute) Steatosis, liver (Acute) Diastolic heart failure (Acute) Congestive heart failure (Chronic) Dementia (Chronic) Generalized edema (Acute) Pain in lower limb (Acute) Insomnia (Acute) (HFpEF) heart failure with preserved ejection fraction (Acute) Restless leg syndrome (Acute) Cellulitis of lower extremity (Acute) Constipation (Acute) Decubital ulcer (Acute) Chronic anemia (Acute) 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 exposure (Acute) Respiratory failure with hypoxia (Acute) Bronchiectasis (Chronic) Nocturnal hypoxia (Acute) Dislodged Garcia catheter (Acute) Hematuria (Acute) Acute UTI (Acute) Abdominal pain (Acute) Diabetes mellitus (Chronic) BPH (benign prostatic hyperplasia) (Chronic) Essential hypertension (Acute) Lung infiltrate (Acute) UTI (urinary tract infection) (Acute) 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 Cortes [facility] [place] Total replacement of hip (~1999) Right hip, later revised in 2005 left side 2007 Rotator Cuff Repair (~1996) Right Repair of inguinal hernia (08/31/11) Right sided with orchiectomy Endoscopic Carpal Tunnel release (05/04/15) Right by Dr. Ayala Extraction of cataract (02/15/16) [place] R with IOL; and L as well, Dr. Dickinson in [place] Family History Mother , CVA at age 85. Diabetes age 50 Essential hypertension Stroke Uterine cancer Father , Colon CA at age 87. Colon cancer Sister Breast cancer Sister Ovarian cancer Sister Ovarian cancer Sister No problems noted. Sister No problems noted. Sister No problems noted. Sister No problems noted. Sister No problems noted. Brother Diabetes Brother No problems noted. Brother No problems noted. Social History Smoking/Tobacco Use Status: Never Smoking risk assessment performed?: Yes Alcohol Intake: never Drug use: Never Substance use type: does not use Housing: house Do you feel safe at home: Yes Do you feel safe in your relationship?: Yes Additional Social history: lives with . SDOH(Care Management) Screening Will the Patient Participate in the Screening?: Yes Do you worry about having a steady place to live?: no In the past 12 months, have you had to go without electric, gas, oil or water in your home?: no Have you or anyone in your house had to go without enough food to eat?: no Has lack of transportation kept you from medical appointments or from doing things needed for daily living?: no Has anyone in your support network made you feel unsafe for any reason?: no
[2024-01-22] MEDS: cefTRIAXone 1 GM/50 ML BAG IVPB (10:56)
[2024-01-22] MEDS: Gabapentin 600 MG TAB 300 MG PO ×2 (10:59→19:23)
[2024-01-22] MEDS: Heparin 5,000 UNITS/ML VIAL 5000 UNITS SC ×2 (11:00→19:23)
[2024-01-22] MEDS: Metoprolol CR 100 MG TABCR PO (11:00)
[2024-01-22] MEDS: Latanoprost 0.005% 2.5 ML BTL OU (11:00)
[2024-01-22] MEDS: Polyethylene Glycol 3350 17 GM PACKET PO (11:00)
--- NOTE | 2024-01-22 12:04 | W.PM.PROGNOT ---
Date of Service Date of service: 01/22/24 Time of Service: 12:04 Assessment and Plan Assessment and plan (1) Acute renal failure: Status: Acute Assessment and plan: stable continue to hold nephrotoxic drugs. will give gentle IV fluids add renal ultrasound urine with no protein or casts, positive for UTI, no evidence of hydro but having some retention, urology consultation, caban placed. (2) Essential hypertension: Status: Acute Assessment and plan: stable off some home meds (3) (HFpEF) heart failure with preserved ejection fraction: Status: Acute Assessment and plan: echo unchanged. Conclusion Moderate concentric left ventricular hypertrophy. EF is 60%. Wall motion is normal Normal right ventricualr size and function Left atrium is moderately dilated. Right atrium is mildly dilated Aortic valve is sclerotic and trileaflet without stenosis or regurgitation Normal mitral valve with midl to moderate regurgitation Normal tricuspid vavle with moderate regurgitation Estimated right ventricular systolic pressure is 49 mmHg Echo report is similar to July 2023 monitor I/Os and daily weights. Qualifiers: Heart failure chronicity: acute on chronic Qualified Code(s): I50.33 - Acute on chronic diastolic (congestive) heart failure (4) BPH (benign prostatic hyperplasia): Status: Chronic Assessment and plan: did require catheterization, urology consulted tamsulosin dose increased. (5) Pulmonary hypertension: Assessment and plan: RVSP on echo in 08/20 was 48 mmHg. As above (6) Pleural effusion: Status: Acute Assessment and plan: The size of the effusion is stable. Consider thoracenthesis. (7) DVT prophylaxis: Status: Acute Assessment and plan: Sc heparin (8) Discharge planning issues: Status: Acute Assessment and plan: Full code (discussed in the ED). care management will follow for discharge planning discussed with Dr Stiles Subjective Subjective Interval history since last seen: patient with urinary retention overnight, urine concerning for a UTI. Exam Const General: cooperative, no acute distress, frail appearing and ill appearing chronically Nutritional Appearance: overweight Orientation: alert and awake [facility] Head: normal to inspection and normocephalic Ears: external ears normal Face and sinus: normal facial exam Mouth: moist mucous membranes abnormal (dry) Eyes General: appearance normal, both eyes and all related structures Neck Neck: normal visual inspection Resp Effort & Inspection: normal respiratory effort and able to speak in complete sentences Auscultation: rales (fine, bases) bilaterally Cardio Rate: regular rate Rhythm: regular rhythm GI Palpation: soft and tender Neuro General: patient alert and patient awake Extrem General: full ROM and pedal edema bilaterally Psych Mental Status: mental status grossly normal Objective Last Vital Signs Temp 36.6 C 01/22/24 07:32 Pulse 67 01/22/24 07:32 Resp 18 01/22/24 07:32 BP 113/74 01/22/24 07:32 Pulse Ox 94 01/22/24 09:18 Laboratory Results - last 24 hr 01/21/24 01/21/24 01/21/24 11:26 16:22 20:20 WBC RBC Hgb Hct MCV MCH MCHC RDW Plt Count MPV Immature Gran % Neutrophils % Lymphocytes % Monocytes % Eosinophils % Basophils % Nucleated RBC % Absolute Neutrophils Absolute Lymphocytes Absolute Monocytes Absolute Eosinophils Absolute Basophils Sodium 136 Potassium 4.3 Chloride 100 Carbon Dioxide 24.9 Anion Gap 11.1 H BUN 80 H Creatinine 3.8 H* Est GFR (CKD-EPI 2020) 14.77 Glucose 101 Calcium 8.5 Urine Color Yellow Urine Clarity Clear Urine pH 5.0 Ur Specific [place] 1.010 Urine Protein Negative Urine Ketones Negative Urine Blood Moderate H Urine Nitrite Positive H Urine Bilirubin Negative Urine Urobilinogen 0.2 Ur Leukocyte Esterase Large H Urine RBC 10-20 H Urine WBC >50 H Ur Epithelial Cells Rare Urine Crystals Negative Urine Bacteria Few Urine Casts Negative Urine Mucus Negative Ur Culture Indicated? Yes Urine Glucose Negative COVID-19 Source Nasopharynx SARS-CoV-2 (PCR) Negative Influenza Type A (PCR) Negative Influenza Type B (PCR) Negative RSV (PCR) Negative 01/22/24 06:18 WBC 5.45 RBC 3.25 L Hgb 10.3 L Hct 32.1 L MCV 99 H MCH 31.7 MCHC 32.1 RDW 15.2 H Plt Count 205 MPV 11.0 Immature Gran % 0.2 Neutrophils % 59.5 Lymphocytes % 25.1 Monocytes % 11.9 Eosinophils % 2.4 Basophils % 0.9 Nucleated RBC % 0.0 Absolute Neutrophils 3.24 Absolute Lymphocytes 1.37 Absolute Monocytes 0.65 Absolute Eosinophils 0.13 Absolute Basophils 0.05 Sodium 138 Potassium 4.0 Chloride 102 Carbon Dioxide 24.0 Anion Gap 12.0 H BUN 75 H Creatinine 3.8 H* Est GFR (CKD-EPI 2020) 14.77 Glucose 101 Calcium 8.5 Urine Color Urine Clarity Urine pH Ur Specific [place] Urine Protein Urine Ketones Urine Blood Urine Nitrite Urine Bilirubin Urine Urobilinogen Ur Leukocyte Esterase Urine RBC Urine WBC Ur Epithelial Cells Urine Crystals Urine Bacteria Urine Casts Urine Mucus Ur Culture Indicated? Urine Glucose COVID-19 Source SARS-CoV-2 (PCR) Influenza Type A (PCR) Influenza Type B (PCR) RSV (PCR) Time Spent with Patient Time Spent with Patient: 35-49 minutes Time was spent: preparing to see the patient(eg.review tests), ordering medications,tests, procedures, indepentently interpreting results and counseling the patient
--- NOTE | 2024-01-22 13:45 | DI.US_ITS ---
Exam(s) US RENAL EXAM: US RENAL CLINICAL HISTORY: acute kidney injury. TECHNIQUE: Jack scale, color and spectral Doppler were used. COMPARISON: US US RENAL from 08/03/[address] ABDOMEN PELVIS WO from 01/21/2024 FINDINGS: Renal size in cm: Right: 10.8. Left: 11.3. Echogenicity: Normal. Hydronephrosis: No. Cyst or mass: No. Nephrolithiasis: No. Other findings: None. Bladder:Normal. Ureteral jets: Right: Not visualized on this examination. Left: Not visualized on this examination. Prevoid vol:129 cc Postvoid vol:The patient was unable to void. Prostate: 94 cc Renal color flow: Symmetric and within normal limits. IMPRESSION: 1. No evidence of hydronephrosis. 2. Unremarkable kidneys. 3. Prostatic enlargement. DATA REPOSITORY:
[2024-01-22] MEDS: Lidocaine 2% Jelly 11 ML SYR UR (13:47)
[2024-01-22] MEDS: Lactated Ringers 1,000 ML 100 ML IV (14:30)
--- NOTE | 2024-01-22 15:58 | W.UROLOGYCON ---
Date of service: 01/22/24 Time of Service: 15:59 Assessment and Plan Assessment and plan (1) Urinary retention: Status: Acute (2) Acute UTI: Status: Acute Assessment and plan: Even though he has had complications from urethral catheter in past, think it is in his best interest to have the catheter at least until urine culture and sensitivity is back can choose the most appropriate antibiotic. In the meantime, the patient tells me he has not moved his bowels in a while, so bowel regimen would be helpful. When I looked back at his CT scan, there was not a large amount of stool present as far as I can tell. He does have quite a bit of air all the way down to the rectum. Do not see any hydronephrosis either on his CT scan and or on today's renal ultrasound. I am not overly hopeful that placing the urinary catheter will improve his renal function, but I still think it is worth a try. History of Present Illness History of Present Illness Chief Complaint: Urinary retention Narrative: This is an 88-year-old gentleman who is known to me from previous encounters. I initially saw him when he had a retained fragment of catheter in his bladder. My second encounter with him occurred while he was hospitalized with fluid overload. His penis and scrotum were so edematous but there was difficulty placing a catheter, so I was asked to place his catheter at that time. He is now admitted with worsening renal function. When he first came in to the hospital, a CT scan showed no sign of hydronephrosis. Overnight, he developed difficulty urinating was catheterized for over a liter of urine. The urinalysis that was obtained was suspicious for urinary tract action. He was started on antibiotics. He tells me that he has difficulty with both his urine and his bowels at the present time. I offered a Garcia catheter until his overall symptoms improved and the patient was agreeable. Review of Systems Narrative: No fevers or chills No vision change or dysphasia Diabetes with neuropathy. No thyroid dysfunction Shortness of breath with and without exertion. No hemoptysis No chest pain or palpitations No nausea, vomiting, hepatitis, ulcers, jaundice No seizures or strokes No bleeding disorders Spinal stenosis/herniated disk. 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 (Acute) Right foot drop (Acute) Pain in thoracic spine (Acute) Urinary retention (Acute) Dyspnea (Acute) Neuropathic pain (Acute) Idiopathic osteoarthritis (Acute) Glaucoma (Chronic) Pleural plaque (Acute) Actinic keratosis (Acute) Disorder of lung (Acute) Steatosis, liver (Acute) Diastolic heart failure (Acute) Congestive heart failure (Chronic) Dementia (Chronic) Generalized edema (Acute) Pain in lower limb (Acute) Insomnia (Acute) (HFpEF) heart failure with preserved ejection fraction (Acute) Restless leg syndrome (Acute) Cellulitis of lower extremity (Acute) Constipation (Acute) Decubital ulcer (Acute) Chronic anemia (Acute) 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 exposure (Acute) Respiratory failure with hypoxia (Acute) Bronchiectasis (Chronic) Nocturnal hypoxia (Acute) Dislodged Garcia catheter (Acute) Hematuria (Acute) Acute UTI (Acute) Abdominal pain (Acute) Diabetes mellitus (Chronic) BPH (benign prostatic hyperplasia) (Chronic) Essential hypertension (Acute) Lung infiltrate (Acute) UTI (urinary tract infection) (Acute) 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 Cortes [facility] [place] (~[place]) Right hip, later revised in 2005 left side 2007 Rotator Cuff Repair (~1996) Right Repair of inguinal hernia (08/31/11) Right sided with orchiectomy Endoscopic Carpal Tunnel release (05/04/15) Right by Dr. Ayala Extraction of cataract (02/15/16) [place] R with IOL; and L as well, Dr. Dickinson in [place] Family History Mother , CVA at age 85. Diabetes age 50 Essential hypertension Stroke Uterine cancer Father , Colon CA at age 87. Colon cancer Sister Breast cancer Sister Ovarian cancer Sister Ovarian cancer Sister No problems noted. Sister No problems noted. Sister No problems noted. Sister No problems noted. Sister No problems noted. Brother Diabetes Brother No problems noted. Brother No problems noted. Social History Smoking/Tobacco Use Status: Never Smoking risk assessment performed?: Yes Alcohol Intake: never Drug use: Never Substance use type: does not use Housing: house Do you feel safe at home: Yes Do you feel safe in your relationship?: Yes Additional Social history: lives with . Exam Narrative Exam Narrative: He does not appear acutely ill but appears more chronically ill. His abdomen is obese but soft with no peritoneal signs No significant or scrotal skin. The urethral meatus is easily visible There is edema of the lower extremities He is awake and alert I reviewed his CT scan the abdomen pelvis done on admission. There is no hydronephrosis and his bladder was not overly distended at that time Results Last Vital Signs Temp 36.4 C L 01/22/24 14:46 Pulse 62 01/22/24 14:46 Resp 18 01/22/24 14:46 BP 114/66 01/22/24 14:46 Pulse Ox 95 01/22/24 14:46 Labs 01/23/24 06:10 01/24/24 11:25 Labs: Laboratory Results - last 24 hr 01/21/24 01/21/24 01/22/24 16:22 20:20 06:18 WBC 5.45 RBC 3.25 L Hgb 10.3 L Hct 32.1 L MCV 99 H MCH 31.7 MCHC 32.1 RDW 15.2 H Plt Count 205 MPV 11.0 Immature Gran % 0.2 Neutrophils % 59.5 Lymphocytes % 25.1 Monocytes % 11.9 Eosinophils % 2.4 Basophils % 0.9 Nucleated RBC % 0.0 Absolute Neutrophils 3.24 Absolute Lymphocytes 1.37 Absolute Monocytes 0.65 Absolute Eosinophils 0.13 Absolute Basophils 0.05 Sodium 136 138 Potassium 4.3 4.0 Chloride 100 102 Carbon Dioxide 24.9 24.0 Anion Gap 11.1 H 12.0 H BUN 80 H 75 H Creatinine 3.8 H* 3.8 H* Est GFR (CKD-EPI 2020) 14.77 14.77 Glucose 101 101 Calcium 8.5 8.5 Urine Color Yellow Urine Clarity Clear Urine pH 5.0 Ur Specific [place] 1.010 Urine Protein Negative Urine Ketones Negative Urine Blood Moderate H Urine Nitrite Positive H Urine Bilirubin Negative Urine Urobilinogen 0.2 Ur Leukocyte Esterase Large H Urine RBC 10-20 H Urine WBC >50 H Ur Epithelial Cells Rare Urine Crystals Negative Urine Bacteria Few Urine Casts Negative Urine Mucus Negative Ur Culture Indicated? Yes Urine Glucose Negative Insert Bladder Catheter Text: He is seen at the bedside. He was placed in the supine position His genitalia was prepped with Betadine. 2% Xylocaine jelly was instilled into the urethra to act as a local anesthetic. A 16 Nepali catheter was passed through the urethra into the bladder. The catheter balloon was inflated with 10 cc of sterile water. 200 cc of yellow urine was obtained in the catheter was hooked to gravity drainage. He tolerated this procedure well
[2024-01-22] MEDS: Albuterol/Ipratropium 3 ML UPD VIAL UPD (20:00)
[2024-01-22] MEDS: QUEtiapine 25 MG TAB 75 MG PO (21:20)
[2024-01-22] MEDS: Tamsulosin 0.4 MG CAPCR 0.8 MG PO (21:20)
[2024-01-23] VITALS (7 sets, daily range): BP systolic 118–139; BP diastolic 67–75; PULSE 58–72; RESP 16–20; TEMP 36.3–36.9; O2SAT 91–95
[2024-01-23 07:19] LABS: Abs Immature Grans 0.02 10^3/uL (0.0-0.06); Absolute Basophil Count 0.04 10^3/uL (0.0-0.2); Absolute Eosinophil Count 0.12 10^3/uL (0.0-0.7); Absolute Lymphocyte Count 1.21 10^3/uL (1.2-3.4); Absolute Monocyte Count 1.05 10^3/uL (0.1-0.8); Basophils % 0.6; Eosinophils % 1.8; HCT 32.2 % (40.0-50.0); HGB 10.3 g/dL (13.5-17.5); Immature Grans % 0.3; Lymphocytes % 18.2; MCH 31.6 pg (27.0-33.0); MCV 99 fL (80-95); MPV 11.4 fL (8.0-11.0); Monocytes % 15.8; Neutrophils % 63.3; Platelet Count 197 10^3/uL (130-400); RBC 3.26 10^6/uL (4.36-5.78); RDW 15.2 % (11.8-14.1); RDW-SD 54.8 fL; WBC 6.64 10^3/uL (4.4-10.8)
[2024-01-23 07:36] LABS: BUN 79 mg/dL (7-18); Calcium 8.3 mg/dL (8.5-10.1); Chloride 102 mmol/L (98-107); Estimated GFR 14.77 (mL/min/1.73m2); Glucose 115 mg/dL (74-106); Potassium 4.3 mmol/L (3.5-5.1); Sodium 137 mmol/L (136-145)
[2024-01-23 07:49] LABS: CREATININE 3.8 mg/dL (0.70-1.30)
[2024-01-23] MEDS: oxyCODONE 5 MG TAB PO ×2 (08:01→21:48)
[2024-01-23] MEDS: Metoprolol CR 100 MG TABCR PO (08:25)
[2024-01-23] MEDS: Gabapentin 600 MG TAB 300 MG PO ×2 (08:25→21:51)
[2024-01-23] MEDS: Polyethylene Glycol 3350 17 GM PACKET PO (08:27)
[2024-01-23] MEDS: Heparin 5,000 UNITS/ML VIAL 5000 UNITS SC ×2 (08:27→21:56)
[2024-01-23] MEDS: Tiotropium Bromide-Respimat 10 PUFF INH IH (08:42)
[2024-01-23] MEDS: Budesonide/Formoterol 80/4.5 6.9 GM 60 PUFF INH IH ×2 (08:42→20:30)
[2024-01-23] MEDS: Latanoprost 0.005% 2.5 ML BTL OU (09:39)
[2024-01-23] MEDS: cefTRIAXone 1 GM/50 ML BAG IVPB (09:40)
[2024-01-23] MEDS: Normal Saline Flush 10 ML SYR IVP ×2 (09:41→15:00)
--- NOTE | 2024-01-23 09:50 | PDOC.CMPRO ---
Date of service: 01/23/24 Care Management Progress Note Progress Note Text Progress Note Text: S/O: Jamie was sitting up in a chair sleeping when CM arrived. Jamie reported that he is agreeable to [facility] and [facility] are not too far to send referrals to. CM sugar laboratory assistant sent the following SNF referrals: [facility], [facility], [place] and to [facility]. CM completed IMM form with Jamie. CM in the afternoon called and spoke to Gareth Aydee via phone and discussed this information. CM following. A: Jamie is an 88 year old male admitted to [facility] 01/20/26 for acute renal failure. P: SNF referrals pending. SDOH(Care Management) Screening Will the Patient Participate in the Screening?: Yes Do you worry about having a steady place to live?: no In the past 12 months, have you had to go without electric, gas, oil or water in your home?: no Have you or anyone in your house had to go without enough food to eat?: no Has lack of transportation kept you from medical appointments or from doing things needed for daily living?: no Has anyone in your support network made you feel unsafe for any reason?: no
--- NOTE | 2024-01-23 10:20 | PT.INIE ---
PT Notes Visit Reasons: Acute Renal Failure Inpatient Physical Therapy Evaluation Date: 01/23/2024 Referring Doctor: Charley Hernandez NP PT Orders: PT CONSULT: Eval/Treat Precautions: Fall. Standard. Activity as tolerated. Patient Profile/Admitting Diagnosis: Patient is an 88-year-old male with medical history significant for restrictive lung disease and bronchiectasis, as well as h/o NIDDM2, HTN, BPH, who was brought to [facility] ED on 01/21/2024 due to increasing generalized wekaness, difficulty standing up adn inability to walk along with shortness of breath and altered mental status. He is admitted for management of a acute renal failure, essential hypertension, HFpEF, BPH, pulmonary hypertension, and pleural effusion. PMHx: All Active Problems (Updated 10/05/23 @ 19:28 by Yajaira Lockhart MD) Discharge planning issues (Acute) DVT prophylaxis (Acute) Pleural effusion (Acute) Pulmonary hypertension (Acute) (HFpEF) heart failure with preserved ejection fraction (Acute) Hypoxemia (Acute) Congestive heart failure (Chronic) Reactive airway disease (Acute) Restless leg syndrome (Acute) Cellulitis of lower extremity (Acute) Constipation (Acute) Decubital ulcer (Acute) Chronic anemia (Acute) 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 exposure (Acute) Respiratory failure with hypoxia (Acute) Bronchiectasis (Chronic) Nocturnal hypoxia (Acute) Restrictive lung disease (Chronic) Foreign body in bladder and urethra (Acute) Dislodged Garcia catheter (Acute) Hematuria (Acute) Acute UTI (Acute) Abdominal pain (Acute) Diabetes mellitus (Chronic) BPH (benign prostatic hyperplasia) (Chronic) Essential hypertension (Acute) Lung infiltrate (Acute) UTI (urinary tract infection) (Acute) 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 Cortes [facility] otal replacement of hip (~1999) Right hip, later revised in 2005 left side 2007 Rotator Cuff Repair (~1996) Right Repair of inguinal hernia (08/31/11) Right sided with orchiectomy Endoscopic Carpal Tunnel release (05/04/15) Right by Dr. Ayala Extraction of cataract (02/15/16) [place] R with IOL; and L as well, Dr. Dickinson in [place] Social History/Home Situation: Patient lives with his in a private home with two steps to enter. Has not been able to walk for over 6 months now. Only had been able to transfer from [facility] ot bed. 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 Has supportive family members. Equipment Owned/DME: FWW, bedside commode, wheelchair, hospital bed Subjective: Complained of significant pain in the R knee that prevented patient to stand up from chair as putting weight on the R knee was too much. Agreeable to getting up to trying out standing with PT and nurse student Perla. Concerned about some mild cognitive issues with . Distanlty considering short-term rehab placement. has fallen 2-3x since last admission in this hospital back in September 2023. per Nurse julio c, patient was given 5 mg of Oxycodone a little after 8 am this morning. Objective: General Observation: Sitting on bedside recliner, with LEs elevated. Garcia catheter in place. IV in L UE. Scabbed areas in R anterior lovell noted. Skin to B legs discolored. Mental Status: A&Ox3 Pain: As above ROM: Right Upper Extremity: Shoulder Flexion abuout 10 degrees only. Shoulder abduction less than 10 degrees. Elbow flexion WFL. Wrist flexion WFL. Functional opening and closing of hand WFL. Left Upper Extremity: Shoulder Flexion WFL. Shoulder abduction WFL. Elbow flexion WFL. Wrist flexion WFL. Functional opening and closing of hand WFL. Right Lower Extremity: Hip flexion WFL. Hip abduction WFL. Knee flexion WFL. Ankle dorsiflexion to neutral only. Ankle plantarflexion WFL. Left Lower Extremity: Hip flexion WFL. Hip abduction WFL. Knee flexion WFL. Ankle dorsiflexion to neutral only. Ankle plantarflexion WFL. Strength: Right Upper Extremity: Shoulder flexors 2-/5. Shoulder abductors 2-/5. Elbow flexors 4-/5. Elbow extensors 4-/5. Radiology Services Manager strong. Left Upper Extremity: Shoulder flexors 4-/5. Shoulder abductors 4-/5. Elbow flexors 4-/5. Elbow extensors 4-/5. Radiology Services Manager strong. Right Lower Extremity: Hip flexors 4-/5. Hip abductors 4-/5. Knee flexors 4-/5. Knee extensors 4-/5. Ankle dorsiflexors 3-/5. Ankle plantarflexors 4-/5. Left Lower Extremity: Hip flexors 4-/5. Hip abductors 4-/5. Knee flexors 4-/5. Knee extensors 4-/5. Ankle dorsiflexors 3-/5. Ankle plantarflexors 4-/5. Bed Mobility/Transfers: Moderate verbal cueing provided for movement sequence, posture, and use of B UE for support to reduce fall risk and pain report. sit-supine: Moderate assist sit to stand: Unable at this time due to R kne pain; limited ability to scoot forward on chair, lean forward, and push off on arm rests of chair bed to chair: Moderate assist of 2 using STED Y lift Gait: Unable due to R knee pain Balance: Static Sitting: Fair Dynamic Sitting: Poor Static Standing: Unable Dynamic Standing: Poor Special Tests: Mobility Limitations Standardized Measure [facility] AM-PAC 6 clicks Basic Mobility Inpatient Short Form: Raw Score: 8 CMS Score: 87% impairment Informed Consent/Education: Patient instructed in purpose of PT consult and plan of care. ASSESSMENT: Unable to efficiently mobilize and perform transfers and ambulation due to R knee pain and geenralized weakness. Use STEDY lift for al transfers at this time. Patient is an 88-year-old male with medical history significant for restrictive lung disease and bronchiectasis, as well as h/o NIDDM2, HTN, BPH, who was brought to [facility] ED on 01/21/2024 due to increasing generalized wekaness, difficulty standing up adn inability to walk along with shortness of breath and altered mental status. He is admitted for management of a acute renal failure, essential hypertension, HFpEF, BPH, pulmonary hypertension, and pleural effusion. Patient presents with clinical signs and symptoms consistent with current/admitting diagnoses that have resulted to mobility limitations, gait instability, generalized weakness, and overall ADL decline as demonstrated by the following impairment level findings: 1. Decreased strength to B UE/LE major muscle groups 2. Impaired sitting/standing balance 3. Impaired activity tolerance 4. Limitation of joint range of motion in B shoulders and knees 5. Shortness of breath 6. Pain in B knees R<<L Impairments are contributing to the following functional limitations: 1. Decline in bed mobility skills 2. Decline in transfer skills 3. Difficulty with ambulation without assistive device and physical assistance 4. Increased completion time for mobility ADL performance 5. Increased risk for falls 6. Difficulty with managing steps alone safely Patient is assessed as Moderate 24284 complexity based on the following: History: Patient is an 88 year old male with extensive medical history, now in acute care for management of CFH with bilat LE edema. He reports recent decline in functional mobility, and requires skilled PT intervention for strengthening and gait training to allow for safe return home once medically stable. Examination: functional limitations as noted above Presentation: evolving Decision Makin moderate complexity Goals: Goals X1 week 1. Supine-Sit: supervision 2. Sit-Supine: supervision 3. Sit-Stand: minimal assist with FWW 4. Stand-Sit: minimal assist with FWW 5. Bed-Chair: minimal assist with FWW 6. Chair-Bed: minimal assist with FWW 7. Gait:minimal assist with FWW x 15 Plan of Care/Treatment Plan: 1-2x/day, 7 days/week x 1 week. Plan of care has been reviewed with the CASH POSTING REPRESENTATIVE providing the service under Physical Therapy direction. Initiate Physical Therapy intervention for strengthening, bed mobility, transfers, gait, stairs, balance training, use of assistive device. Coordinate with nurse for pain premedication. DISCHARGE RECOMMENDATIONS: Short-term rehab vs HH PT TREATMENT CODE/TIME: 07540 x 29 minutes for 1 unit (10:20-10:49). Thank you for the opportunity to participate in the care of this patient. Katie Miller PT, DPT, CLT [facility] [place], [place]
--- NOTE | 2024-01-23 11:59 | W.PM.PROGNOT ---
Date of Service Date of service: 01/23/24 Time of Service: 12:02 Assessment and Plan Assessment and plan (1) Acute renal failure: Status: Acute Assessment and plan: stable continue to hold nephrotoxic drugs. will give gentle IV fluids add renal ultrasound urine with no protein or casts, positive for UTI, no evidence of hydro but having some retention, urology consultation, caban placed. (2) Essential hypertension: Status: Acute Assessment and plan: stable off some home meds (3) (HFpEF) heart failure with preserved ejection fraction: Status: Acute Assessment and plan: echo unchanged. Conclusion Moderate concentric left ventricular hypertrophy. EF is 60%. Wall motion is normal Normal right ventricualr size and function Left atrium is moderately dilated. Right atrium is mildly dilated Aortic valve is sclerotic and trileaflet without stenosis or regurgitation Normal mitral valve with midl to moderate regurgitation Normal tricuspid vavle with moderate regurgitation Estimated right ventricular systolic pressure is 49 mmHg Echo report is similar to July 2023 monitor I/Os and daily weights. Qualifiers: Heart failure chronicity: acute on chronic Qualified Code(s): I50.33 - Acute on chronic diastolic (congestive) heart failure (4) BPH (benign prostatic hyperplasia): Status: Chronic Assessment and plan: did require catheterization, urology consulted tamsulosin dose increased. (5) Pleural effusion: Status: Acute Assessment and plan: The size of the effusion is stable. Consider thoracenthesis. (6) DVT prophylaxis: Status: Acute Assessment and plan: Sc heparin (7) Discharge planning issues: Status: Acute Assessment and plan: Full code (discussed in the ED). care management will follow for discharge planning discussed with Dr Stiles Subjective Subjective Patient reports: still having pain, tolerating liquids well, tolerating a regular diet, no bowel movement, shortness of breath and afebrile; denies voiding w/o difficulty (caban to gravity drainage) Exam Const General: cooperative, no acute distress, frail appearing and ill appearing chronically Nutritional Appearance: overweight Orientation: alert and awake [facility] Head: normal to inspection and normocephalic Ears: external ears normal Face and sinus: normal facial exam Mouth: moist mucous membranes abnormal (dry) Eyes General: appearance normal, both eyes and all related structures Neck Neck: normal visual inspection Resp Effort & Inspection: normal respiratory effort and able to speak in complete sentences Auscultation: rales (fine, bases) bilaterally Cardio Rate: regular rate Rhythm: regular rhythm GI Palpation: soft and tender Neuro General: patient alert and patient awake Extrem General: full ROM and pedal edema bilaterally Psych Mental Status: mental status grossly normal Objective Last Vital Signs Temp 36.7 C 01/24/24 07:34 Pulse 63 01/24/24 07:34 Resp 14 01/24/24 07:34 BP 102/71 01/24/24 07:34 Pulse Ox 94 01/24/24 07:34 Laboratory Results - last 24 hr 01/24/24 11:36 Add-On Test Request DONE Time Spent with Patient Time Spent with Patient: 35-49 minutes Time was spent: preparing to see the patient(eg.review tests), obtaining and/or reviewing separately otained hiistory, ordering medications,tests, procedures, indepentently interpreting results and counseling the patient
[2024-01-23] MEDS: Lactated Ringers 1,000 ML 125 ML IV (15:00)
--- NOTE | 2024-01-23 15:14 | PT.INTREAT ---
PT Notes Visit Reasons: Acute Renal Failure Inpatient Physical Therapy Treatment Note [facility] Date: 01/23/24 SUBJECTIVE: [place] reports that he is not feeling well. I am sorry but I can't do anything today. He was agreeable to chair ex this pm. OBJECTIVE: []? VITALS: ?monitored by nursing. ? Therapeutic Exercises (51875j7): Direct one-on-one instruction in therapeutic exercises to develop strength, endurance, range of motion and flexibility. ? Exercises ?Seated: AP x10, LAQ x10, SAQ x10, SLR x10, ADD squeeze x10. Heel slides with min A on right x10. ASSESSMENT:? tolerated session well despite not feeling well. He was pretty teary and appeared frustrated with not being able to get himself up. PLAN: will continue to work on his strength and functional mobility following PT POC. TREATMENT CODE/TIME: 12 min. [id number]
[2024-01-23] MEDS: Tamsulosin 0.4 MG CAPCR 0.8 MG PO (21:47)
[2024-01-23] MEDS: QUEtiapine 25 MG TAB 75 MG PO ×2 (21:49→22:07)
[2024-01-24] VITALS (12 sets, daily range): BP systolic 102–146; BP diastolic 66–105; PULSE 63–78; RESP 2–20; TEMP 36.1–38.3; O2SAT 92–98
[2024-01-24] MEDS: Albuterol/Ipratropium 3 ML UPD VIAL UPD ×4 (00:03→22:20)
[2024-01-24] MEDS: Lactated Ringers 1,000 ML 125 ML IV ×2 (01:33→11:21)
[2024-01-24] MEDS: Budesonide/Formoterol 80/4.5 6.9 GM 60 PUFF INH IH ×2 (08:00→19:58)
[2024-01-24] MEDS: Tiotropium Bromide-Respimat 10 PUFF INH IH (08:02)
[2024-01-24] MEDS: oxyCODONE 5 MG TAB PO ×3 (08:13→14:57)
[2024-01-24] MEDS: Gabapentin 600 MG TAB 300 MG PO ×2 (08:14→21:57)
[2024-01-24] MEDS: Heparin 5,000 UNITS/ML VIAL 5000 UNITS SC ×2 (09:18→21:58)
[2024-01-24] MEDS: Polyethylene Glycol 3350 17 GM PACKET PO (09:18)
[2024-01-24] MEDS: Metoprolol CR 100 MG TABCR PO (09:18)
[2024-01-24] MEDS: Latanoprost 0.005% 2.5 ML BTL OU (09:19)
--- NOTE | 2024-01-24 09:22 | PDOC.CMPRO ---
Date of service: 01/24/24 Care Management Progress Note Progress Note Text Progress Note Text: S/O: Jamie was sitting up in a chair eating with assistance with RESIDENT BUYER. CM and Jamie had discussed whether he was agreeable to [facility] who has a bed offer, he said he wanted to wait for his to come. CM called Aydee when in the room who discussed bed offer and decided both would be agreeable. CM let Clinical Talent Acquisition Project Manager know. CM following. A: Jamie is an 88 year old male admitted to [facility] 01/20/26 for acute renal failure. P: SNF referrals pending. SDOH(Care Management) Screening Will the Patient Participate in the Screening?: Yes Do you worry about having a steady place to live?: no In the past 12 months, have you had to go without electric, gas, oil or water in your home?: no Have you or anyone in your house had to go without enough food to eat?: no Has lack of transportation kept you from medical appointments or from doing things needed for daily living?: no Has anyone in your support network made you feel unsafe for any reason?: no
[2024-01-24] MEDS: cefTRIAXone 1 GM/50 ML BAG IVPB (09:55)
--- NOTE | 2024-01-24 11:20 | PT.INTREAT ---
PT Notes Visit Reasons: Acute Renal Failure Inpatient Physical Therapy Treatment Note [facility] Date: 01/24/24 PRECAUTIONS:Standard SUBJECTIVE: Pt reports that his pain is not under control and he is very sore and not doing well today. OBJECTIVE: ? Therapeutic Exercises (47241y[2]): Direct one-on-one instruction in therapeutic exercises to develop strength, endurance, range of motion and flexibility. ? Exercises ? Assist with all seated exercises Seated rowing x 10 Seated horz abd x 10 Seated shoulder flexion x 10 Seated UE circles x 10 Heel slides x 10 Hip abd x 10 Q.S. x 10 Ankle pumps x 10 Pt did not feel up to standing or walking today. ASSESSMENT:? Pt was very sore during his session and required assist with exercises. Nursing was going to look into more pain medication for him. PLAN: Cont as per PT POC. TREATMENT CODE/TIME: :55-11:18 (23) TPx2
[2024-01-24 11:38] LABS: Lab Add On Test DONE
[2024-01-24 11:53] LABS: Anion Gap 12.3 mmol/L (3-11); CO2 22.7 mmol/L (21.0-32.0); Calcium 8.6 mg/dL (8.5-10.1); Chloride 98 mmol/L (98-107); Estimated GFR 15.76 (mL/min/1.73m2); Glucose 159 mg/dL (74-106); Potassium 4.6 mmol/L (3.5-5.1); Sodium 133 mmol/L (136-145)
--- NOTE | 2024-01-24 12:00 | PGE_ITS ---
Date of Service Date of service: 01/24/24 Time of Service: 10:00 Assessment and Plan Assessment and plan (1) Acute renal failure: Status: Acute Assessment and plan: improved after additional IV hydration yesterday continue to hold nephrotoxic drugs. stop IV fluids as he appears euvolemic renal ultrasound: IMPRESSION: 1. No evidence of hydronephrosis. 2. Unremarkable kidneys. 3. Prostatic enlargement. urine with no protein or casts, positive for UTI, no evidence of hydro but having some retention, urology consultation, caban placed. (2) Essential hypertension: Status: Acute Assessment and plan: stable off some home meds (3) (HFpEF) heart failure with preserved ejection fraction: Status: Acute Assessment and plan: echo unchanged. Conclusion Moderate concentric left ventricular hypertrophy. EF is 60%. Wall motion is normal Normal right ventricualr size and function Left atrium is moderately dilated. Right atrium is mildly dilated Aortic valve is sclerotic and trileaflet without stenosis or regurgitation Normal mitral valve with midl to moderate regurgitation Normal tricuspid vavle with moderate regurgitation Estimated right ventricular systolic pressure is 49 mmHg Echo report is similar to July 2023 monitor I/Os and daily weights. Qualifiers: Heart failure chronicity: acute on chronic Qualified Code(s): I50.33 - Acute on chronic diastolic (congestive) heart failure (4) BPH (benign prostatic hyperplasia): Status: Chronic Assessment and plan: did require catheterization, urology consulted tamsulosin dose increased. (5) Pulmonary hypertension: Assessment and plan: RVSP on echo in 08/20 was 48 mmHg. As above (6) Pleural effusion: Status: Acute Assessment and plan: The size of the effusion is stable. Consider thoracenthesis. (7) DVT prophylaxis: Status: Acute Assessment and plan: Sc heparin (8) Discharge planning issues: Status: Acute Assessment and plan: Full code (discussed in the ED). care management will follow for discharge planning discussed with Dr Stiles Subjective Subjective Patient reports: still having pain, tolerating liquids well, tolerating a regular diet, no bowel movement and afebrile; denies voiding w/o difficulty (has indwelling caban) Exam Const General: cooperative, no acute distress, frail appearing and ill appearing chronically Nutritional Appearance: overweight Orientation: alert and awake [facility] Head: normal to inspection and normocephalic Ears: external ears normal Face and sinus: normal facial exam Mouth: moist mucous membranes abnormal (dry) Eyes General: appearance normal, both eyes and all related structures Neck Neck: normal visual inspection Resp Effort & Inspection: normal respiratory effort and able to speak in complete sentences Auscultation: rales (fine, bases) bilaterally Cardio Rate: regular rate Rhythm: regular rhythm GI Palpation: soft and tender Neuro General: patient alert and patient awake Extrem General: full ROM and pedal edema bilaterally Psych Mental Status: mental status grossly normal Objective Last Vital Signs Temp 36.7 C 01/24/24 07:34 Pulse 63 01/24/24 07:34 Resp 14 01/24/24 07:34 BP 102/71 01/24/24 07:34 Pulse Ox 94 01/24/24 07:34 Laboratory Results - last 24 hr 01/24/24 11:36 Add-On Test Request DONE Time Spent with Patient Time Spent with Patient: 35-49 minutes Time was spent: preparing to see the patient(eg.review tests), obtaining and/or reviewing separately otained hiistory, ordering medications,tests, procedures, indepentently interpreting results and counseling the patient
[2024-01-24 12:01] LABS: CREATININE 3.6 mg/dL (0.70-1.30)
[2024-01-24 12:02] LABS: BUN 81 mg/dL (7-18)
[2024-01-24 12:06] LABS: NT-proBNP 19852 pg/mL (<300)
[2024-01-24] MEDS: Methylnaltrexone 12 MG/0.6 ML VIAL SC (12:15)
--- NOTE | 2024-01-24 14:45 | PHA.REVIEW2 ---
Pharmacy Admission Review Admission Clinical Review Admission Pharmacy Review: Discharge planning issues (Acute) DVT prophylaxis (Acute) Pleural effusion (Acute) Acute renal failure (Acute) Essential hypertension (Acute) Urinary retention (Acute) (HFpEF) heart failure with preserved ejection fraction (Acute) Acute UTI (Acute) diclofenac Allergy (Mild, Verified 01/21/24 10:25) Other (See Comment) aspirin Adverse Reaction (Intermediate, Verified 01/21/24 10:25) GI Bleeding NSAIDS (Non-Steroidal Anti-Inflamma Adverse Reaction (Intermediate, Verified 01/21/24 10:25) GI Bleeding Resuscitation Status Full Code Height 5 ft 9 in Weight 105.2 kg Pharmacy Admission Review Renal Dosing Renal Dosing: BUN 81 mg/dL (7-18) H* 01/24/24 11:25 Creatinine 3.6 mg/dL (0.70-1.30) H* 01/24/24 11:25 Medications needing adjustments: Reviewed (CrCl 17.6 mL/min, SCr slightly decreased from 3.8 to 3.6 but BUN increased from 79 to 81) List of meds needing interventions: Current medications are okay Anticoagulation Anticoagulation: Hgb 10.3 g/dL (13.5-17.5) L 01/23/24 06:10 Hct 32.2 % (40.0-50.0) L 01/23/24 06:10 Plt Count 197 10^3/uL (130-400) 01/23/24 06:10 Creatinine 3.6 mg/dL (0.70-1.30) H* 01/24/24 11:25 DVT Prophylaxis: Reviewed Medications: Heparin (BID) Opiate Usage Evaluate Pain Scale/Pains Meds: Reviewed (PRN oxycodone) Scheduled Bowel Reg ordered if on Opiates?: Yes (Miralax) Relevant Labs Relevant Labs: ESR 44 mm/hr (0-20) H 01/21/24 10:30 Sodium 133 mmol/L (136-145) L 01/24/24 11:25 Potassium 4.6 mmol/L (3.5-5.1) 01/24/24 11:25 Chloride 98 mmol/L (98-107) 01/24/24 11:25 Magnesium 2.4 mg/dL (1.8-2.4) 01/21/24 10:30 C-Reactive Protein 1.40 mg/dL (<or=0.5) H 01/21/24 10:30 C-Reactive Protein Cancelled 01/21/24 10:30 Electrolytes, C-Reactive P, ESR: Reviewed (Na 133, glucose 159) Cardiac Review Cardiac Review: Troponin I < 50 ng/L (< or =60) 01/21/24 10:30 NT-Pro-B Natriuret Pep 57305 pg/mL (<300) H 01/24/24 11:25 BP, HR, EF%: Reviewed (BP/HR WNL, NT-Pro-BNP [place] 37115 to [address]79) QTc Review QTc: Reviewed (496 from 01/21/24) IV to PO Switch IV Medications: Reviewed (Ceftriaxone and furosemide) Home Meds Home Med List reviewed: Reviewed Relevent Home Meds Not ordered & why?: Trelegy (formulary substitution to Symbicort + Spiriva), losartan (on hold), Narcan (PRN), Silvadene cream and potassium Current Meds Current Medication Order Review: Reviewed Pharmacy Antibiotic Review Pharmacy Antibiotic Activity: C/S review and Reviewed, no change Comments: Patient continues on ceftriaxone day 3. Blood culture showing no growth, urine culture growing E. cloacae (resistant to cefazolin).
[2024-01-24] MEDS: Furosemide 40 MG/4 ML VIAL IVP (15:12)
[2024-01-24] MEDS: Normal Saline Flush 10 ML SYR IVP (15:13)
--- NOTE | 2024-01-24 15:35 | PT.INTREAT ---
PT Notes Visit Reasons: Acute Renal Failure Date: 01/24/24 PRECAUTIONS:Standard SUBJECTIVE: Pt in bed when approached for therapy this afternoon, pt agreed to participating with therapy but was not able to tolerate BLE contact due to pain, Nurse supervisor concrete block plant updated with pt condition and was able tpo administer pain meds to allow for pt participation with therapy. Objective: ? Therapeutic Exercises [id number] 30mins: Direct one-on-one instruction in therapeutic exercises to develop strength, endurance, range of motion and flexibility. Exercises AAROM with all supine exercises Seated rowing x 10 Seated horz abd x 10 Seated shoulder flexion x 10 Seated UE circles x 10 Heel slides x 10 Hip abd x 10 Q.S. x 10 Ankle pumps x 10 ASSESSMENT:? Pt able to perform AAROM post pain medication, pt not able to participate with OOB activity due to weakness and pain. Nursing informed of pt pain level and will coordinate pain med administration to help maximize pt participation with PT. PLAN: Cont as per PT POC. TREATMENT CODE/TIME: [id number], 3:00-3:30pm (30mins)
--- NOTE | 2024-01-24 16:10 | W.PM.PROGNOT ---
Date of Service Date of service: 01/24/24 Time of Service: 16:11 Assessment and Plan Assessment and plan (1) Urinary retention: Status: Acute Assessment and plan: Unfortunately, his serum creatinine has not improved with catheter drainage. I think it is safe to say that we are not dealing with obstructive uropathy as a source of his increased creatinine That being said, urinary tract infection in the men can often be associated with incomplete bladder emptying. We will leave his catheter in place as we treat his UTI. His tamsulosin has been increased to 0.8 mg/day so he will be ready for a voiding trial after he has been on the higher dose of medication for a minimum of 3 days. Subjective Subjective Interval history since last seen: He is tolerating his indwelling catheter. He is on ceftriaxone for his documented urinary tract infection Exam Narrative Exam Narrative: He does not appear septic or toxic His temperature is up to 38.3 this afternoon His urine is grossly clear He is awake and alert His serum creatinine has not improved significantly with catheter drainage. Objective Last Vital Signs Temp 38.3 C H 01/24/24 15:35 Pulse 78 01/24/24 15:35 Resp 20 01/24/24 15:35 BP 146/105 H 01/24/24 15:35 Pulse Ox 93 01/24/24 15:35 Laboratory Results - last 24 hr 01/24/24 01/24/24 11:25 11:36 Sodium 133 L Potassium 4.6 Chloride 98 Carbon Dioxide 22.7 Anion Gap 12.3 H BUN 81 H* Creatinine 3.6 H* Est GFR (CKD-EPI 2020) 15.76 Glucose 159 H Calcium 8.6 NT-Pro-B Natriuret Pep 61816 H Add-On Test Request DONE Time Spent with Patient Time Spent with Patient: <25 minutes Time was spent: other
[2024-01-24] MEDS: Acetaminophen 325 MG TAB 650 MG PO ×2 (16:11→21:56)
[2024-01-24] MEDS: oxyCODONE 5 MG TAB 10 MG PO (21:52)
[2024-01-24] MEDS: QUEtiapine 25 MG TAB 75 MG PO (21:54)
[2024-01-24] MEDS: Tamsulosin 0.4 MG CAPCR 0.8 MG PO (21:57)
[2024-01-25] VITALS (66 sets, daily range): BP systolic 93–138; BP diastolic 53–87; PULSE 58–89; RESP 9–26; TEMP 36–37.2; O2SAT 87–98
[2024-01-25] MEDS: oxyCODONE 5 MG TAB PO (01:35)
[2024-01-25 06:59] LABS: Abs Immature Grans 0.01 10^3/uL (0.0-0.06); Absolute Basophil Count 0.04 10^3/uL (0.0-0.2); Absolute Eosinophil Count 0.14 10^3/uL (0.0-0.7); Absolute Lymphocyte Count 1.09 10^3/uL (1.2-3.4); Absolute Monocyte Count 1.09 10^3/uL (0.1-0.8); Basophils % 0.7; Eosinophils % 2.6; HCT 27.9 % (40.0-50.0); HGB 9.3 g/dL (13.5-17.5); Immature Grans % 0.2; Lymphocytes % 19.9; MCHC 33.3 % (32.0-36.0); MCV 96 fL (80-95); Monocytes % 19.9; Neutrophils % 56.7; Platelet Count 167 10^3/uL (130-400); RBC 2.91 10^6/uL (4.36-5.78); RDW 15.1 % (11.8-14.1); RDW-SD 52.9 fL; WBC 5.47 10^3/uL (4.4-10.8)
[2024-01-25 07:18] LABS: Anion Gap 10.6 mmol/L (3-11); CO2 23.4 mmol/L (21.0-32.0); Calcium 8.4 mg/dL (8.5-10.1); Chloride 99 mmol/L (98-107); Estimated GFR 15.25 (mL/min/1.73m2); Glucose 110 mg/dL (74-106); Potassium 4.5 mmol/L (3.5-5.1); Sodium 133 mmol/L (136-145)
[2024-01-25 07:26] LABS: BUN 86 mg/dL (7-18); CREATININE 3.7 mg/dL (0.70-1.30)
[2024-01-25] MEDS: Budesonide/Formoterol 80/4.5 6.9 GM 60 PUFF INH IH ×2 (08:14→22:24)
[2024-01-25] MEDS: Tiotropium Bromide-Respimat 10 PUFF INH IH (08:15)
--- NOTE | 2024-01-25 09:05 | PGE_ITS ---
Date of Service Date of service: 01/25/24 Time of Service: 09:05 Assessment and Plan Assessment and plan (1) Acute renal failure: Status: Acute Assessment and plan: BUN/Creat 86/3.7 was 81/3.6 on 01/23. No further hydration as per 01/23 d/t improvement from admission date, but patient does not seem to take good oral intake. Continue to hold nephrotoxic drugs; was on Losartan at home On 2l on oxygen this AM sat 92-94% while appears sedated from oral opiods: Consider adjusting dosing. VBG : 7.30//60- acceptable renal ultrasound completed previously diuring this stay: IMPRESSION: 1. No evidence of hydronephrosis. 2. Unremarkable kidneys. 3. Prostatic enlargement. Seen by urology, please see notes LFT's pending (2) (HFpEF) heart failure with preserved ejection fraction: Status: Acute Assessment and plan: echo unchanged. Conclusion Moderate concentric left ventricular hypertrophy. EF is 60%. Wall motion is normal Normal right ventricualr size and function Left atrium is moderately dilated. Right atrium is mildly dilated Aortic valve is sclerotic and trileaflet without stenosis or regurgitation Normal mitral valve with midl to moderate regurgitation Normal tricuspid vavle with moderate regurgitation Estimated right ventricular systolic pressure is 49 mmHg Echo report is similar to July 2023 monitor I/Os and daily weights. Qualifiers: Heart failure chronicity: acute on chronic Qualified Code(s): I50.33 - Acute on chronic diastolic (congestive) heart failure (3) Pleural effusion: Status: Acute Assessment and plan: POCUS completed by Dr. Stiles R> L side pleural effusion eivdenced by B-lines SBP 100 this AM Give lasix 40 mg IVP STAT Albumin IV Diuril 1000 mg IV Lasix drip at 5 mg/hour Midodrine PO Consider thoracenthesis if medical management not effective . (4) UTI (urinary tract infection): Status: Acute Assessment and plan: urine with no protein or casts, positive for UTI, no evidence of hydro but having some retention, urology consultation,continue caban for urine output monitoring. continue Ceftriaxone C&S : ENTEROBACTER CLOACAE COMPLEX, Blood cultures pending was febrile overnight (5) Essential hypertension: Status: Acute Assessment and plan: No losartan for now Continue metoprolol , has a hx of atrial fibrillation as per spouse (6) BPH (benign prostatic hyperplasia): Status: Chronic Assessment and plan: Continue caban catheterization. Urology consulted and seen by Dr. Mccullough , please read notes Continue increased dose of tamsulosin at 0.8 mg (7) Pulmonary hypertension: Assessment and plan: RVSP on echo in 08/20 was 48 mmHg. As above (8) DVT prophylaxis: Status: Acute Assessment and plan: Continue Sc heparin (9) Discharge planning issues: Status: Acute Assessment and plan: Full code initially but after discussion with spouse this AM the patient would not want life support.Awaiting for effect of sedation d/t pain meds to subside to confirm. Considering ICU transfer if patient's BP dropped below level to allow for MAP to be >65 care management will follow for discharge planning discussed with Dr Stiles Subjective Subjective Patient reports: still having pain, pain is less, voiding w/o difficulty, bowel movement, nausea and shortness of breath; denies tolerating liquids well, tolerating a regular diet, diarrhea, blood in stool, vomiting, afebrile or fever Exam Narrative Exam Narrative: Constitutional The patient is lying in bed in high- forbes, RASS -1 initially improving during interaction. The patient is using accessory muscle, abdominal breathing initially, normaliz ed by the end of the exam- more sustained awakening- has obese body habitus HENMT: Facial structures with normal appearance Eyes: Well aligned once awakened Neuro:alert and oriented to self, person, place, time and situation. No neurological focal deficit Resp: right sided exp. wheezing, decreased left sided basilar breath sounds. POCUS completed by showed evidence of right pleural effusion and smaller effusion to the left side; IVC not collapsing on expiration. Please see image/report for more details. Cardio:Distant S1, S2, capillary refill<3 sec., bilateral radial and dorsalis pedis pulses are positive, edema-anasarca up to upper legs GI: Abdomen is not distended, soft and non tender, bowel sounds are present : no bladder distension Back/spine/Pelvis: No back tenderness, normal alignment Extremities:generalized weakness, strength bilaterally equal to lower and upper extremities Psych: RASS-1 to 0, congruent mood and normal affect once awakened Objective Last Vital Signs Temp 36.0 C L 01/25/24 08:04 Pulse 79 01/25/24 08:04 Resp 18 01/25/24 08:04 BP 100/61 01/25/24 08:04 Pulse Ox 94 01/25/24 08:04 Laboratory Results - last 24 hr 01/24/24 01/24/24 01/25/24 11:25 11:36 06:40 WBC 5.47 RBC 2.91 L Hgb 9.3 L Hct 27.9 L MCV 96 H MCH 32.0 MCHC 33.3 RDW 15.1 H Plt Count 167 MPV 11.0 Immature Gran % 0.2 Neutrophils % 56.7 Lymphocytes % 19.9 Monocytes % 19.9 Eosinophils % 2.6 Basophils % 0.7 Nucleated RBC % 0.0 Absolute Neutrophils 3.10 Absolute Lymphocytes 1.09 L Absolute Monocytes 1.09 H Absolute Eosinophils 0.14 Absolute Basophils 0.04 Sodium 133 L 133 L Potassium 4.6 4.5 Chloride 98 99 Carbon Dioxide 22.7 23.4 Anion Gap 12.3 H 10.6 BUN 81 H* 86 H* Creatinine 3.6 H* 3.7 H* Est GFR (CKD-EPI 2020) 15.76 15.25 Glucose 159 H 110 H Calcium 8.6 8.4 L NT-Pro-B Natriuret Pep 75962 H 97180 H Add-On Test Request DONE Time Spent with Patient Time Spent with Patient: >50 minutes Time was spent: preparing to see the patient(eg.review tests), obtaining and/or reviewing separately otained hiistory, ordering medications,tests, procedures, referring, communicating with other health patient centered care specialist, indepentently interpreting results, counseling the patient and care coordination
--- NOTE | 2024-01-25 09:13 | PDOC.CMPRO ---
Date of service: 01/25/24 Care Management Progress Note Progress Note Text Progress Note Text: S/O: Jamie was lying in bed with daughter Shara bedside when CM met with him. They let CM know Shara is one of three children, and the youngest in the family with two older brothers. Each of Jamie and Linda children had three children themselves so there is a total of nine grandchildren. Jamie reports his was in earlier. Shara discussed her son has been coming to see Jamie each night and reported that he was not doing well last night. Jamie was transferred to ICU this morning. Jamie says he looks forward to feeling better. CM following. A: Jamie is an 88 year old male admitted to [facility] 01/20/26 for acute renal failure. P: SNF referrals pending to [facility](Care Management) Screening Will the Patient Participate in the Screening?: Yes Do you worry about having a steady place to live?: no In the past 12 months, have you had to go without electric, gas, oil or water in your home?: no Have you or anyone in your house had to go without enough food to eat?: no Has lack of transportation kept you from medical appointments or from doing things needed for daily living?: no Has anyone in your support network made you feel unsafe for any reason?: no
[2024-01-25 09:44] LABS: BE (Venous) -4 mmol/L (-2-3); HCO3 (Venous) 23 mmol/L (23-28); O2 Sat (Venous) 90 %; TCO2 (Venous) 22 mmol/L (24-29); pCO2 (Venous) 46 mmHg (41-51); pO2 (Venous) 60 mmHg
[2024-01-25 09:54] LABS: Lab Add On Test DONE
[2024-01-25 10:08] LABS: ALT 10 U/L (16-63); AST 12 U/L (15-37); Albumin 2.9 g/dL (3.4-5.0); Alkaline Phosphatase 97 U/L (46-116); Bilirubin, Direct 0.3 mg/dL (0.0-0.2); Bilirubin, Total 0.6 mg/dL (0.2-1.0); Total Protein 6.7 g/dL (6.4-8.2)
--- NOTE | 2024-01-25 10:17 | W.POCUS ---
Pocus Exam Limited Thoracic Lung Exam DATE OF EXAM: 01/25/24 TIME OF EXAM: 09:37 PROVIDER THAT PERFORMED THE STUDY: Nick Stiles IS THIS A REPEAT EXAM DURING THIS ENCOUNTER: No REASON FOR EXAM: Hypoxia and Shortness ofBreath VISUALIZED STRUCTURES: right anterior, left anterior, right lateral, left lateral, right subcostal and left subcostal PERTINENT FINDINGS/IMPRESSION: B-lines/left side thoracis location: anterior, lateral and posterior, B-lines/right side thoracis location: anterior, lateral and posterior and Right pleural effusion Exam complete
[2024-01-25] MEDS: ALBUMIN HUMAN 25 GM/100 ML BTL IVPB (10:20)
--- NOTE | 2024-01-25 10:20 | W.POCUS ---
Pocus Exam Limited Cardiac Exam DATE OF EXAM: 01/25/24 TIME OF EXAM: 09:49 PROVIDER THAT PERFORMED THE STUDY: Nick Stiles REASON FOR EXAM: Congestive heart failure, Dyspnea and Hypoxia VISUALIZED STRUCTURES: left ventricle, right ventricle, Interventricular septum and IVC VIEW OBTAINED: Subxiphoid PERTINENT FINDINGS/IMPRESSION: Plethoric IVC; no IVC inspiratory collapsability INCIDENTAL FINDINGS: IVC demonstrates dilated IVC 2.5 to 2.6 cm w/ decreased respiratory variation of 8 to 14%. Hepatic venous wave doppler pattern demonstrates systolic flow reversal and renal vein pattern shows venous pulsatility; findings are consistent w/ volume overload and hepatic and renal congestion Exam complete
[2024-01-25] MEDS: Furosemide 40 MG/4 ML VIAL IVP (10:50)
[2024-01-25] MEDS: Midodrine 2.5 MG TAB PO ×3 (11:19→20:58)
[2024-01-25] MEDS: Normal Saline Flush 10 ML SYR IVP (11:55)
[2024-01-25] MEDS: cefTRIAXone 1 GM/50 ML BAG IVPB (12:30)
[2024-01-25] MEDS: Heparin 5,000 UNITS/ML VIAL 5000 UNITS SC (12:39)
--- NOTE | 2024-01-25 16:18 | W.PALLCONSUL ---
Date of service: 01/25/24 Time of Service: 15:00 History of Present Illness History of Present Illness Chief Complaint: acute renal failure, chf, goals of care Narrative: Phoenix Aguilar is an 88 yo man who was admitted with a creatinine of 3.9. His creatinine had been normal at 1.0 on 12/18/23. He does not have a history of CKD. This is a sudden change in his renal function, though he did suffer a bout of GARO in July 2023. He was very tired when I was seeing him. The primary reason I was asked to see him was to determine his code status. He is very worried about his , he says. He thinks that she will not function well without him. She is 83. They started going out when she was 17 and they had their first child when she was 18 and he was 21. They have a son living with them, but he is quite volatile, apparently. Phoenix said that he trusted his to speak for him, and to let his medical team know what he wanted. He doesn't want to go on dialysis, he told me. He doesn't want to be hooked up to machines. He wants to go home. He wants to get things settled for his family. He is afraid his will really fall apart when he dies. He did mention that she had memory problems, but when I brought up this concern with her directly, she became quite offended and called me back later to let me know how upset both she and her son were by my accusation. Consults Consult date: 01/25/24 Requesting physician: Nick Stiles Assessment and Plan Assessment and plan (1) Congestive heart failure: Status: Chronic Assessment and plan: Being managed by hospitalist team. Could result in his if he develops flash pulmonary edema. We did not discuss this today, however. Jamie is a very ill man. (2) (HFpEF) heart failure with preserved ejection fraction: Status: Acute Qualifiers: Heart failure chronicity: acute on chronic Qualified Code(s): I50.33 - Acute on chronic diastolic (congestive) heart failure (3) Acute renal failure: Status: Acute Assessment and plan: Puzzling etiology. Normal at end of Nov and now quite elevated. Son wanted us to know that Phoenix fell on his lower back not long before this admission. Info relayed to Dr Stiles,. (4) Palliative care patient: Status: Acute Assessment and plan: Will need ongoing palliative support. (5) Goals of care, counseling/discussion: Status: Acute Assessment and plan: agreed that Phoenix would not want to have CPR and shocking. Phoenix said his knew what he wanted. Code status changed to reflect DNI. Likely he would not survive a code given the severity of his lung and cardiac disease. (6) Anasarca associated with disorder of kidney: Status: Acute (7) Cardiorenal syndrome with renal failure: Status: Acute (8) DNI (do not intubate): Status: Acute (9) DNR (do not resuscitate): Status: Acute Review of Systems Constitutional Constitutional: Reports daytime sleepiness, Reports fatigue, Reports poor appetite, Reports weakness and Reports weight gain Eyes Eyes: Reports requires corrective lenses ENT Ears, Nose, Mouth, and Throat: Reports abnormal hearing, Reports dizziness and Reports dry mouth Cardiovascular Cardiovascular: Reports dyspnea on exertion Respiratory Respiratory: Reports dyspnea on exertion Gastrointestinal Gastrointestinal: Reports constipation and Reports early satiety Genitourinary Genitourinary: Reports difficulty urinating Musculoskeletal Musculoskeletal: Reports atrophy Neurologic Neurologic: Reports abnormal hearing, Reports dizziness and Reports weakness Psychiatric Psychiatric: Reports anxiety Endocrine Endocrine: Reports fatigue PFSH All Active Problems (Updated 01/29/24 @ 20:39 by Wendi Glover MD) DNI (do not intubate) (Acute) DNR (do not resuscitate) (Acute) Flash pulmonary edema (Acute) Acute exacerbation of CHF (congestive heart failure) (Acute) Atrial fibrillation (Chronic) Cardiorenal syndrome with renal failure (Acute) Anasarca associated with disorder of kidney (Acute) Palliative care patient (Acute) Goals of care, counseling/discussion (Acute) Discharge planning issues (Acute) DVT prophylaxis (Acute) Pleural effusion (Acute) Acute renal failure (Acute) Cardiac murmur (Acute) Essential hypertension (Acute) Anxiety (Chronic) Polyneuropathy (Acute) 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 (Acute) Right foot drop (Acute) Pain in thoracic spine (Acute) Urinary retention (Acute) Dyspnea (Acute) Neuropathic pain (Acute) Idiopathic osteoarthritis (Acute) Glaucoma (Chronic) Pleural plaque (Acute) Actinic keratosis (Acute) Disorder of lung (Acute) Steatosis, liver (Acute) Diastolic heart failure (Acute) Congestive heart failure (Chronic) Dementia (Chronic) Pain in lower limb (Acute) Insomnia (Acute) (HFpEF) heart failure with preserved ejection fraction (Acute) Restless leg syndrome (Acute) Cellulitis of lower extremity (Acute) Constipation (Acute) Decubital ulcer (Acute) Chronic anemia (Acute) 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 exposure (Acute) Respiratory failure with hypoxia (Acute) Bronchiectasis (Chronic) Nocturnal hypoxia (Acute) Dislodged Garcia catheter (Acute) Hematuria (Acute) Acute UTI (Acute) Abdominal pain (Acute) Diabetes mellitus (Chronic) BPH (benign prostatic hyperplasia) (Chronic) Essential hypertension (Acute) Lung infiltrate (Acute) UTI (urinary tract infection) (Acute) 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 Cortes [facility] Total replacement of hip (~1999) Right hip, later revised in 2005 left side 2007 Rotator Cuff Repair (~1996) Right Repair of inguinal hernia (08/31/11) Right sided with orchiectomy Endoscopic Carpal Tunnel release (05/04/15) Right by Dr. Ayala Extraction of cataract (02/15/16) [place] R with IOL; and L as well, Dr. Dickinson in [place] Family History Mother , CVA at age 85. Diabetes age 50 Essential hypertension Stroke Uterine cancer Father , Colon CA at age 87. Colon cancer Sister Breast cancer Sister Ovarian cancer Sister Ovarian cancer Brother Diabetes Son No problems noted. Daughter No problems noted. Son No problems noted. Social History Smoking/Tobacco Use Status: Never Smoking risk assessment performed?: Yes Alcohol Intake: never Drug use: Never Substance use type: does not use Caregiver/Support person: Yes Household members: spouse and children Housing: house Number of Children: 3 Communication Needs: Hard of Hearing and Corrective Lenses Do you need help understanding health information?: Always Do you think of yourself as: straight/heterosexual Current gender identity: male What is your relationship status?: How often do you talk on the phone with friends or family?: three or more times per week How often do you get together with friends or relatives?: three or more times per week Panel score (0-1 are the most socially isolated patients): 2 What type of physical activity do you participate in: sedentary lifestyle Special jesus needs: No Do you feel safe at home: Yes Do you feel safe in your relationship?: Yes Additional Social history: Phoenix lives with , Shawna and their younger son, Isiah. for almost 70 years (Shawna was 16, Phoenix was 21). Son Phoenix Sims visits every day. Lots of support. Exam Narrative Exam Narrative: Chronically ill-appearing older gentleman laying in bed in no acute distress, 2 L nasal cannula, Aox4, heart regular rate rhythm, lungs diminished in bilateral bases though improved airation as compared to previous day, abdomen soft, nontender, nondistended Results Last Vital Signs Temp 97.9 F 01/25/24 13:07 Pulse 89 01/25/24 14:16 Resp 12 01/25/24 14:16 BP 138/87 01/25/24 14:16 Pulse Ox 95 01/25/24 14:16 Labs 01/27/24 05:25 01/29/24 08:37 Labs: Laboratory Results - last 24 hr 01/25/24 01/25/24 01/25/24 06:40 09:40 09:53 WBC 5.47 RBC 2.91 L Hgb 9.3 L Hct 27.9 L MCV 96 H MCH 32.0 MCHC 33.3 RDW 15.1 H Plt Count 167 MPV 11.0 Immature Gran % 0.2 Neutrophils % 56.7 Lymphocytes % 19.9 Monocytes % 19.9 Eosinophils % 2.6 Basophils % 0.7 Nucleated RBC % 0.0 Absolute Neutrophils 3.10 Absolute Lymphocytes 1.09 L Absolute Monocytes 1.09 H Absolute Eosinophils 0.14 Absolute Basophils 0.04 VBG pH 7.30 L VBG pCO2 46 VBG pO2 60 VBG HCO3 23 VBG Total CO2 22 L VBG O2 Saturation 90 VBG Base Excess -4 L Sodium 133 L Potassium 4.5 Chloride 99 Carbon Dioxide 23.4 Anion Gap 10.6 BUN 86 H* Creatinine 3.7 H* Est GFR (CKD-EPI 2020) 15.25 Glucose 110 H Calcium 8.4 L Total Bilirubin 0.6 Conjugated Bilirubin 0.3 H AST 12 L ALT 10 L Alkaline Phosphatase 97 NT-Pro-B Natriuret Pep 04091 H Total Protein 6.7 Albumin 2.9 L Add-On Test Request DONE
[2024-01-25] MEDS: Acetaminophen 325 MG TAB 650 MG PO ×2 (16:35→20:57)
[2024-01-25] MEDS: Tamsulosin 0.4 MG CAPCR 0.8 MG PO (20:57)
[2024-01-25] MEDS: QUEtiapine 25 MG TAB 75 MG PO (20:58)
[2024-01-25] MEDS: Gabapentin 600 MG TAB 300 MG PO (20:58)
[2024-01-26] VITALS (50 sets, daily range): BP systolic 87–121; BP diastolic 46–72; PULSE 57–95; RESP 11–18; TEMP 36.5–37; O2SAT 88–96
[2024-01-26] MEDS: Heparin 5,000 UNITS/ML VIAL 5000 UNITS SC ×3 (01:54→21:25)
[2024-01-26 06:43] LABS: Abs Immature Grans 0.01 10^3/uL (0.0-0.06); Absolute Basophil Count 0.05 10^3/uL (0.0-0.2); Absolute Eosinophil Count 0.33 10^3/uL (0.0-0.7); Absolute Lymphocyte Count 1.08 10^3/uL (1.2-3.4); Absolute Monocyte Count 0.89 10^3/uL (0.1-0.8); Absolute Neutrophil Count 3.32 10^3/uL (1.2-6.7); Basophils % 0.9; Eosinophils % 5.8; HGB 9.5 g/dL (13.5-17.5); Immature Grans % 0.2; MCHC 32.8 % (32.0-36.0); MCV 98 fL (80-95); MPV 11.4 fL (8.0-11.0); Monocytes % 15.7; Neutrophils % 58.4; Platelet Count 187 10^3/uL (130-400); RBC 2.97 10^6/uL (4.36-5.78); RDW-SD 54.3 fL; WBC 5.68 10^3/uL (4.4-10.8)
[2024-01-26 07:05] LABS: Anion Gap 12.3 mmol/L (3-11); CO2 23.7 mmol/L (21.0-32.0); Calcium 8.5 mg/dL (8.5-10.1); Chloride 99 mmol/L (98-107); Estimated GFR 14.77 (mL/min/1.73m2); Glucose 103 mg/dL (74-106); Magnesium 2.4 mg/dL (1.8-2.4); Potassium 4.1 mmol/L (3.5-5.1); Sodium 135 mmol/L (136-145)
[2024-01-26 07:16] LABS: BUN 88 mg/dL (7-18); CREATININE 3.8 mg/dL (0.70-1.30)
[2024-01-26] MEDS: Acetaminophen 325 MG TAB 650 MG PO ×3 (07:50→21:26)
[2024-01-26] MEDS: Gabapentin 600 MG TAB 300 MG PO ×2 (07:50→21:26)
[2024-01-26] MEDS: Midodrine 2.5 MG TAB PO ×3 (07:51→21:26)
[2024-01-26] MEDS: Budesonide/Formoterol 80/4.5 6.9 GM 60 PUFF INH IH ×2 (08:04→20:12)
[2024-01-26] MEDS: Tiotropium Bromide-Respimat 10 PUFF INH IH (08:31)
[2024-01-26] MEDS: cefTRIAXone 1 GM/50 ML BAG IVPB (08:33)
--- NOTE | 2024-01-26 09:59 | W.PM.PROGNOT ---
Date of Service Date of service: 01/26/24 Time of Service: 09:59 Assessment and Plan Assessment and plan (1) (HFpEF) heart failure with preserved ejection fraction: Status: Acute Assessment and plan: Echo report 01/22/24: Moderate concentric left ventricular hypertrophy. EF is 60%. Wall motion is normal Normal right ventricualr size and function Left atrium is moderately dilated. Right atrium is mildly dilated Aortic valve is sclerotic and trileaflet without stenosis or regurgitation Normal mitral valve with midl to moderate regurgitation Normal tricuspid vavle with moderate regurgitation Estimated right ventricular systolic pressure is 49 mmHg Echo report is similar to July 2023 What is not noted on the impression is that he is in grade II diastolic CHF w/ elevated filling pressures (E/A 1.8, E/e' 16.5, TR peak velocity 3.12 m/s, LUISA however is only 26.3 mL/m2) continue w/ aggressive diuresis w/ iv lasix drip and iv diuril, monitor U.O. goal is 150 to 200 mL/hr, I would like him net negative by 2 to 3 liters per day. Critical care time spent interviewing and examining the patient, reviewing studies, discussing case with patient's nurse and consulting physicians was 45 minutes Qualifiers: Heart failure chronicity: acute on chronic Qualified Code(s): I50.33 - Acute on chronic diastolic (congestive) heart failure (2) Acute renal failure: Status: Acute Assessment and plan: BUN and creatinine remain elevated at 88 and 3.8. I will check his UA looking for any casts, but his renal US has ruled out obstructive causes, so this appears to be cardiorenal origin. Qualifiers: Acute renal failure type: unspecified Qualified Code(s): N17.9 - Acute kidney failure, unspecified (3) Pulmonary hypertension: Assessment and plan: patient has underlying bronchiectasis and restrictive lung disease, unsure whether or not he has MINO or COPD. However he has PHTN but no RV dysfunction on his echo. pulmonary pressures may be elevated from diastolic HF (4) Pleural effusion: Status: Acute Assessment and plan: moderate right pleural effusion (5) UTI (urinary tract infection): Status: Acute Assessment and plan: Enterobacter cloacae, sensitive to Rocephin, negative blood cultures. currently on Rocephin 1 gm daily day #5. Can probably stop antibiotics at this point as he has had no fever and no leukocytosis. I will repeat his UA. Qualifiers: Hematuria presence: without hematuria Urinary tract infection type: acute cystitis Qualified Code(s): N30.00 - Acute cystitis without hematuria (6) Essential hypertension: Status: Acute Assessment and plan: No losartan for now Continue metoprolol , has a hx of atrial fibrillation as per spouse (7) BPH (benign prostatic hyperplasia): Status: Chronic Qualifiers: Lower urinary tract symptom detail: incomplete bladder emptying Lower urinary tract symptom presence: symptoms present Qualified Code(s): N40.1 - Benign prostatic hyperplasia with lower urinary tract symptoms; R39.14 - Feeling of incomplete bladder emptying (8) DVT prophylaxis: Status: Acute Assessment and plan: Continue Sc heparin (9) Discharge planning issues: Status: Acute Subjective Subjective Interval history since last seen: Jamie states he is feeling better today and feels that he has a little more strength he was able to sit up and feed himself this morning. He says the dyspnea is improving he has no chest discomfort. Exam Narrative Exam Narrative: Jamie is alert oriented person place and circumstance as well date. He is wearing oxygen at 2 L a minute not acutely dyspneic O2 sat 93%. Weight is down to 103.8 kg per bed scale Lungs with rales at the left base right base is diminished secondary to pleural effusion no rhonchi Heart sounds to be regular with an occasional ectopic beat has a soft systolic murmur over the apex no thrill Abdomen is obese soft nontender Extremities 2+ pitting edema Garcia catheter draining clear yellow urine Review of rhythm shows sinus rhythm with bundle branch block and a prolonged first-degree AV block. MA interval 360 ms. Objective Last Vital Signs Temp 36.8 C 01/26/24 09:26 Pulse 63 01/26/24 09:26 Resp 16 01/26/24 09:26 BP 102/56 L 01/26/24 09:26 Pulse Ox 93 01/26/24 09:26 Laboratory Results - last 24 hr 01/25/24 01/26/24 09:40 05:50 WBC 5.68 RBC 2.97 L Hgb 9.5 L Hct 29.0 L MCV 98 H MCH 32.0 MCHC 32.8 RDW 15.0 H Plt Count 187 MPV 11.4 H Immature Gran % 0.2 Neutrophils % 58.4 Lymphocytes % 19.0 Monocytes % 15.7 Eosinophils % 5.8 Basophils % 0.9 Nucleated RBC % 0.0 Absolute Neutrophils 3.32 Absolute Lymphocytes 1.08 L Absolute Monocytes 0.89 H Absolute Eosinophils 0.33 Absolute Basophils 0.05 Sodium 135 L Potassium 4.1 Chloride 99 Carbon Dioxide 23.7 Anion Gap 12.3 H BUN 88 H* Creatinine 3.8 H* Est GFR (CKD-EPI 2020) 14.77 Glucose 103 Calcium 8.5 Magnesium 2.4 Total Bilirubin 0.6 Conjugated Bilirubin 0.3 H AST 12 L ALT 10 L Alkaline Phosphatase 97 Total Protein 6.7 Albumin 2.9 L Time Spent with Patient Time Spent with Patient: 35-49 minutes Time was spent: preparing to see the patient(eg.review tests), ordering medications,tests, procedures, referring, communicating with other health long term care pharmacist, indepentently interpreting results, counseling the patient and care coordination
[2024-01-26 11:10] LABS: Lab Add On Test DONE
[2024-01-26 11:31] LABS: Bilirubin Negative (Negative); Blood Small (Negative); Clarity Clear (Clear); Glucose Negative (Negative); Ketones Negative (Negative); Leukocyte Esterase Small (Negative); Nitrite Negative (Negative); Urobilinogen 0.2 mg/dL (Up to 0.2)
[2024-01-26 11:36] LABS: Bacteria Few HPF (Negative); Crystals Few Amorphous HPF (Negative); Epithelial Cells Rare HPF (Negative); Mucus Negative (Negative)
[2024-01-26 11:37] LABS: C & S Indicated? Yes
[2024-01-26 12:00] LABS: Procalcitonin 0.3 ng/mL
[2024-01-26] MEDS: QUEtiapine 25 MG TAB 75 MG PO (21:25)
[2024-01-26] MEDS: Tamsulosin 0.4 MG CAPCR 0.8 MG PO (21:26)
[2024-01-27] VITALS (42 sets, daily range): BP systolic 83–134; BP diastolic 45–106; PULSE 64–121; RESP 3–25; TEMP 36.8–37.2; O2SAT 84–95
--- NOTE | 2024-01-27 | DI.CT_ITS ---
Exam(s) CT CHEST/ABD/PEL WO EXAM: CT CHEST WO CLINICAL HISTORY: dyspnea. TECHNIQUE: Imaging protocol: Axial computed tomography images were obtained and coronal and sagittal reformatted images were created and reviewed. COMPARISON: CT CT CHEST WO from 02/06/[address] ABDOMEN PELVIS WO from 01/21/2024 FINDINGS: Tracheobronchial tree: Patent where visualized. Pulmonary parenchyma: There is a large right and moderate left pleural effusion. There is near compl ete collapse of the right lower lobe. There are subjacent infiltrate seen in the right upper, right middle and left lower lobes. These may represent areas of atelectasis or pneumonia. No architectura l distortion. Mediastinum and Flor: Mildly enlarged lymph nodes are seen in the mediastinum which may be reactive. The esophagus is unremarkable. Thyroid gland: Unremarkable. Pleura: No pneumothorax. Pleural plaque calcifications are seen. Heart: Cardiomegaly. Coronary artery calcifications are present. Tiny pericardial effusion. Aorta: Thoracic aorta non-dilated. Atherosclerotic calcification is present. Upper abdomen: Unremarkable. Lymph nodes: Within normal limits. Soft tissues: There is atrophy of the rotator cuff muscles. There is mild edema in the subcutaneous tissues along the lateral and posterior chest wall. Bones:Within normal limits for the patient's age. Marked degenerative changes and joint effusions se en in the shoulders bilaterally. Stable appearance of the visualized lower thoracic and upper lumbar spine. IMPRESSION: 1. Bilateral pleural effusions, large on the right and moderate on the left. There is subjacent infi ltrate seen with near complete collapse of the right lower lobe. This may represent atelectasis or p neumonia. Please correlate clinically. 2. Fatty atrophy of the rotator cuff muscles bilaterally. Bilateral shoulder joint effusions. Marke d degenerative changes in the shoulders. 3. Cutaneous edema in the chest wall. This may reflect anasarca. RADIATION DOSE DELIVERED: Total DLP Total DLP DATA REPOSITORY: All CT scans at this facility are submitted to the National Radiology Data Registry (NRDR) Dose Index Registry (DIR) with the [employer] (ACR). RADIATION OPTIMIZATION: All CT scans at this facility use at least one of these dose optimization te chniques: automated exposure control; mA and/or kV adjustment per patient size (includes targeted exa ms where dose is matched to clinical indication); or iterative reconstruction.
[2024-01-27 05:47] LABS: Abs Immature Grans 0.02 10^3/uL (0.0-0.06); Absolute Basophil Count 0.04 10^3/uL (0.0-0.2); Absolute Eosinophil Count 0.39 10^3/uL (0.0-0.7); Absolute Lymphocyte Count 0.95 10^3/uL (1.2-3.4); Absolute Monocyte Count 0.71 10^3/uL (0.1-0.8); Basophils % 0.8; Eosinophils % 7.6; HCT 30.1 % (40.0-50.0); HGB 9.9 g/dL (13.5-17.5); Immature Grans % 0.4; Lymphocytes % 18.6; MCH 31.8 pg (27.0-33.0); MCHC 32.9 % (32.0-36.0); MCV 97 fL (80-95); MPV 10.8 fL (8.0-11.0); Monocytes % 13.9; Neutrophils % 58.7; Platelet Count 213 10^3/uL (130-400); RBC 3.11 10^6/uL (4.36-5.78); RDW 14.8 % (11.8-14.1); RDW-SD 52.4 fL; WBC 5.11 10^3/uL (4.4-10.8)
[2024-01-27 06:03] LABS: ALT 12 U/L (16-63); AST 12 U/L (15-37); Albumin 2.9 g/dL (3.4-5.0); Alkaline Phosphatase 117 U/L (46-116); Bilirubin, Total 0.3 mg/dL (0.2-1.0); Calcium 8.7 mg/dL (8.5-10.1); Chloride 99 mmol/L (98-107); Estimated GFR 13.89 (mL/min/1.73m2); Glucose 118 mg/dL (74-106); Potassium 3.8 mmol/L (3.5-5.1); Sodium 136 mmol/L (136-145); Total Protein 6.7 g/dL (6.4-8.2)
[2024-01-27 06:13] LABS: BUN 93 mg/dL (7-18)
[2024-01-27] MEDS: Budesonide/Formoterol 80/4.5 6.9 GM 60 PUFF INH IH ×2 (08:22→19:57)
[2024-01-27] MEDS: Tiotropium Bromide-Respimat 10 PUFF INH IH (08:22)
--- NOTE | 2024-01-27 08:52 | PGE_ITS ---
Date of Service Date of service: 01/27/24 Time of Service: 08:52 Assessment and Plan Assessment and plan (1) (HFpEF) heart failure with preserved ejection fraction: Status: Acute Assessment and plan: Echo report 01/22/24: Moderate concentric left ventricular hypertrophy. EF is 60%. Wall motion is normal Normal right ventricualr size and function Left atrium is moderately dilated. Right atrium is mildly dilated Aortic valve is sclerotic and trileaflet without stenosis or regurgitation Normal mitral valve with midl to moderate regurgitation Normal tricuspid vavle with moderate regurgitation Estimated right ventricular systolic pressure is 49 mmHg Echo report is similar to July 2023 What is not noted on the impression is that he is in grade II diastolic CHF w/ elevated filling pressures (E/A 1.8, E/e' 16.5, TR peak velocity 3.12 m/s, LUISA however is only 26.3 mL/m2) I am concerned that despite appropriate diuresis, his renal function continues to worsen. BUN now 93 and creatinine is 4.0. CO2 is still ok at 27 and K 3.8. He seems to have cardiorenal syndrome, despite his having good LVEF. His UA has some fine granular and hyaline casts but no muddly brown casts, although he has some red cells and white cells in the urine but negative for protein. few bacteria (although he was treated for his UTI and completed his Ceftriaxone yesterday. I will do a POCUS echo including checking LV filling pressure and check his VEXUS. We may be at a point where he is no longer tolerant of diuresis. I did POCUS of his lungs and he has moderate right sided pleural effusion (which we knew from his admission CXR and abdominal CT, this apparently started in July 2023 and was small but has progressed since then. He has bilateral B lines c/w interstitial process, proabably CHF, his LV filling pressures are indeterminate Critical care time spent interviewing and examining the patient, reviewing studies, discussing case with patient's nurse and consulting physicians was 60 minutes (outside of time spent performing POCUS studies) Qualifiers: Heart failure chronicity: acute on chronic Qualified Code(s): I50.33 - Acute on chronic diastolic (congestive) heart failure (2) Acute renal failure: Status: Acute Assessment and plan: appears to be cardiorenal. I will complete my POCUS of his heart, liver and kidneys and then give [facility] nephrology a call to discuss management strategy. I spoke w/ Dr. Jes Hart, nephrology from [facility]. She reviewed the patient's presentation, course of renal function and she thinks that Ray presented w/ ATN on admission but d/t him not eating and drinking much prior to admission his UA did not show the casts and now that he has recovered from his sepsis and kidneys have been perfused he is now showing casts and that the ATN is going to take time to recover, in the meantime, I will resume diuresis given his hepatic and renal congestion and pulmonary edema. Qualifiers: Acute renal failure type: unspecified Qualified Code(s): N17.9 - Acute kidney failure, unspecified (3) Pulmonary hypertension: Assessment and plan: patient has underlying bronchiectasis and restrictive lung disease, unsure whether or not he has MINO or COPD. However he has PHTN but no RV dysfunction on his echo. pulmonary pressures may be elevated from diastolic HF (4) Pleural effusion: Status: Acute Assessment and plan: moderate right pleural effusion, may need thoracentesis, I dont think that this is going to resolve w/ diuretics. (5) UTI (urinary tract infection): Status: Acute Assessment and plan: Enterobacter cloacae, sensitive to Rocephin, negative blood cultures. repeat urine culture pending, he now has completed 5 days of Ceftriaxone which was finished yesterday Qualifiers: Hematuria presence: without hematuria Urinary tract infection type: acute cystitis Qualified Code(s): N30.00 - Acute cystitis without hematuria (6) Essential hypertension: Status: Acute Assessment and plan: No losartan for now Continue metoprolol (7) BPH (benign prostatic hyperplasia): Status: Chronic Qualifiers: Lower urinary tract symptom detail: incomplete bladder emptying Lower urinary tract symptom presence: symptoms present Qualified Code(s): N40.1 - Benign prostatic hyperplasia with lower urinary tract symptoms; R39.14 - Feeling of incomplete bladder emptying (8) DVT prophylaxis: Status: Acute Assessment and plan: Continue Sc heparin (9) Discharge planning issues: Status: Acute (10) Atrial fibrillation: Status: Chronic Assessment and plan: per his he has history of afib but has been in SR w/ 1st degree AV block Qualifiers: Atrial fibrillation type: paroxysmal Qualified Code(s): I48.0 - Paroxysmal atrial fibrillation Subjective Subjective Interval history since last seen: Phoenix feels that he is less dyspneic this morning. SPO2 91% on 1 lpm oxygen. He does not seem dyspneic w/ conversation but he tires out easily w/ any activity Exam Narrative Exam Narrative: Phoenix is alert, oriented, not in acute distress but gets tired easily w/ any activity Lungs: basilar rales posteriorly on the left; marked decreased breath sounds on the right base; upper anterior lung patel are clear Heart: regular but controlled rate, soft systolic mumur over apex Abdomen: obese, soft, nontender Extremities: still w/ edema in his arms R>L, edema in his legs has improved Urine clear yellow urine I/O net negative nearly 3 liter yesterday, he has been voiding 150 to 200 mL/h Objective Last Vital Signs Temp 37.2 C 01/27/24 05:01 Pulse 74 01/27/24 07:01 Resp 23 01/27/24 07:01 BP 90/47 L 01/27/24 07:01 Pulse Ox 93 01/27/24 08:23 Laboratory Results - last 24 hr 01/26/24 01/26/24 01/27/24 05:50 11:05 05:25 WBC 5.11 RBC 3.11 L Hgb 9.9 L Hct 30.1 L MCV 97 H MCH 31.8 MCHC 32.9 RDW 14.8 H Plt Count 213 MPV 10.8 Immature Gran % 0.4 Neutrophils % 58.7 Lymphocytes % 18.6 Monocytes % 13.9 Eosinophils % 7.6 Basophils % 0.8 Nucleated RBC % 0.0 Absolute Neutrophils 3.00 Absolute Lymphocytes 0.95 L Absolute Monocytes 0.71 Absolute Eosinophils 0.39 Absolute Basophils 0.04 Sodium 136 Potassium 3.8 Chloride 99 Carbon Dioxide 27.0 Anion Gap 10.0 BUN 93 H* Creatinine 4.0 H* Est GFR (CKD-EPI 2020) 13.89 Glucose 118 H Calcium 8.7 Total Bilirubin 0.3 AST 12 L ALT 12 L Alkaline Phosphatase 117 H Total Protein 6.7 Albumin 2.9 L Procalcitonin 0.3 Urine Color Yellow Urine Clarity Clear Urine pH 5.0 Ur Specific [place] 1.010 Urine Protein Negative Urine Ketones Negative Urine Blood Small H Urine Nitrite Negative Urine Bilirubin Negative Urine Urobilinogen 0.2 Ur Leukocyte Esterase Small H Urine RBC 10-20 H Urine WBC 10-20 H Ur Epithelial Cells Rare Urine Crystals Few Amorphous Urine Bacteria Few Urine Casts Urine Mucus Negative Ur Culture Indicated? Yes Urine Glucose Negative Add-On Test Request DONE Reviewed Pertinent PMH: Yes Time Spent with Patient Time Spent with Patient: >50 minutes Time was spent: preparing to see the patient(eg.review tests), ordering medications,tests, procedures, referring, communicating with other health certified caregiver (case d/w Dr. Hart, nephrology, [facility]), indepentently interpreting results, counseling the patient and care coordination
[2024-01-27] MEDS: Latanoprost 0.005% 2.5 ML BTL OU (09:58)
[2024-01-27] MEDS: Heparin 5,000 UNITS/ML VIAL 5000 UNITS SC ×2 (09:58→22:04)
[2024-01-27] MEDS: Polyethylene Glycol 3350 17 GM PACKET PO (09:58)
[2024-01-27] MEDS: Midodrine 2.5 MG TAB PO ×3 (09:59→20:02)
[2024-01-27] MEDS: Gabapentin 600 MG TAB 300 MG PO ×2 (09:59→20:01)
[2024-01-27] MEDS: Acetaminophen 325 MG TAB 650 MG PO ×3 (09:59→20:00)
--- NOTE | 2024-01-27 10:44 | W.POCUS ---
Pocus Exam Limited Thoracic Lung Exam DATE OF EXAM: 01/27/24 TIME OF EXAM: 08:55 PROVIDER THAT PERFORMED THE STUDY: Nick Stiles IS THIS A REPEAT EXAM DURING THIS ENCOUNTER: No REASON FOR EXAM: Hypoxia and Shortness ofBreath VISUALIZED STRUCTURES: right anterior, left anterior, right lateral, left lateral, right posterior, left posterior, right subcostal and left subcostal PERTINENT FINDINGS/IMPRESSION: B-lines/left side thoracis location: lateral and posterior, B-lines/right side thoracis location: anterior, lateral and posterior and Right pleural effusion (moderate) INCIDENTAL FINDINGS: patient has bilateral B lines and right pleural effusion, finding consistent w/ CHF Exam complete
--- NOTE | 2024-01-27 10:51 | W.POCUS ---
Pocus Exam Limited Cardiac Exam DATE OF EXAM: 01/27/24 TIME OF EXAM: 09:11 PROVIDER THAT PERFORMED THE STUDY: Nick Stiles IS THIS A REPEAT EXAM DURING THIS ENCOUNTER: no REASON FOR EXAM: Congestive heart failure and Dyspnea VISUALIZED STRUCTURES: four chambers, mitral valve, Interventricular septum and IVC VIEW OBTAINED: Apical 4-Chamber and Subxiphoid PERTINENT FINDINGS/IMPRESSION: Plethoric IVC (IVC 2.29 cm w/ 39% inspiratory collapsibility); no IVC inspiratory collapsability, No LV dysfunction, No pericardial effusion, No RV dilation and No RV dysfunction (TAPSE 23 mm (normal)) INCIDENTAL FINDINGS: hepatic venous PW doppler interrogation demonstrate systolic flow reversal, mild poral vein pulsatility, and discontinuous biphasic renal pulsatility MV inflow velocities E wave avg 111 cm/s, A wave 59 cm/s; E/A 1.88, lateral e' avg 10.7, avg E/e' 10.4, TR velocity 2.92 m/s, gradient 34 mm, estimated RVSP 49 mm (based on estimated RAP 15 cm) Based on these findings, his LV filling pressures are probably not high, grade I diastolic HF; however he is still showing congestion of liver and kidneys Exam complete
--- NOTE | 2024-01-27 12:36 | DI.VRAD_ITS ---
PROCEDURE INFORMATION: Exam: CT Chest Without Contrast; Diagnostic Exam date and time: 01/27/2024 11:31 AM Age: 88 years old Clinical indication: Dyspnea TECHNIQUE: Imaging protocol: Diagnostic computed tomography of the chest without contrast. 3D rendering (Not supervised by radiologist): MIP and/or 3D reconstructed images were created by the technologist. COMPARISON: CT CHEST WO 02/06/2022 10:19 AM FINDINGS: Limitations: Images are degraded from streak artifact from the patient's arm in the field of view and overlying devices. Lungs: See Pleural spaces finding. Pleural spaces: Bilateral pleural effusions with adjacent atelectasis, [id number]-left. Calcified pleural plaques. No pneumothorax. Heart: [id number] coronary artery calcifications. Coronary arteries: Trace pericardial fluid. Borderline left atrial enlargement. Lymph nodes: Prominent mediastinal lymph nodes, unchanged from prior. Vasculature: Mild atherosclerotic calcification of the aorta. Bones/joints: Degenerative changes of the spine and shoulders. Soft tissues: Subcutaneous fluid and fat stranding along the lower lateral chest griffiths and upper abdomen, erypr-[id number]-left. No organized fluid collection. Mild gynecomastia. IMPRESSION: 1. Moderate to large right and small left pleural effusions with subjacent atelectasis. 2. Lateral chest and flank subcutaneous fluid and fat stranding which could represent anasarca or cellulitis. Dictated and Authenticated by: Torey Whitten MD. Ordering:[facility] Linsey Romero MD
--- NOTE | 2024-01-27 14:06 | SCONE_ITS ---
Date of service: 01/27/24 Time of Service: 14:06 Assessment and Plan Assessment and plan (1) Pleural effusion: Status: Acute Assessment and plan: Pleural effusion certainly fits with heart failure and con commitment renal failure. In that regard, there may be benefit to therapeutic thoracentesis. Furthermore, the unilateral nature of is a little bit concerning, and I think ruling out malignancy is also probably important here. At the current time, there is no strong indicators for emergent thoracentesis. It is also little difficult to get him appropriately positioned up in the ICU. In that regard, I think it would be more beneficial and safer to perform this in the operating room. I will make arrangements to do this tomorrow, and if there is any acute changes in the meantime, we can certainly do it in a more emergent fashion. History of Present Illness History of Present Illness Chief Complaint: Weakness and fatigue Narrative: Jamie is 88 years old. He was brought to the emergency department 6 days ago with a chief complaint of 2 to 3 days worth of involving fatigue associated with some shortness of breath. He was admitted with acute on chronic renal insufficiency. This was probably compounded by some heart failure with preserved ejection fraction, mild pulmonary hypertension. He was admitted to the hospital and diuresed. He tells me that he was subjectively feeling better each day up until yesterday, when he felt like he plateaued a bit. His chief complaint regarding yesterday involves increasing fatigue again, and some mild exertional dyspnea. He underwent a CT scan of the chest today that demonstrated right-sided pleural effusion, and have been consulted for thoracentesis. Other past medical history includes diabetes, arthritis, and perhaps restrictive lung disease with bronchiectasis. Review of Systems Constitutional Constitutional: Reports fatigue, Denies fever(s) and Reports weakness Eyes Eyes: Reports system reviewed and no additional complaints, except as documented ENT Ears, Nose, Mouth, and Throat: Reports system reviewed and no additional complaints, except as documented Cardiovascular Cardiovascular: Denies chest pain and Reports dyspnea Respiratory Respiratory: Denies chest congestion, Reports cough, Reports excessive phlegm production and Reports dyspnea Gastrointestinal Gastrointestinal: Reports system reviewed and no additional complaints, except as documented Musculoskeletal Musculoskeletal: Denies myalgias and Reports muscle weakness Comments: Bilateral lower extremity swelling Neurologic Neurologic: Reports weakness Psychiatric Psychiatric: Reports system reviewed and no additional complaints, except as documented Endocrine Endocrine: Reports fatigue Hematologic/Lymphatic Hematologic/Lymphatic: Denies easy bleeding and Denies easy bruising PFSH All Active Problems Atrial fibrillation (Chronic) Cardiorenal syndrome with renal failure (Acute) Anasarca associated with disorder of kidney (Acute) Palliative care patient (Acute) Goals of care, counseling/discussion (Acute) Discharge planning issues (Acute) DVT prophylaxis (Acute) Pleural effusion (Acute) Acute renal failure (Acute) Cardiac murmur (Acute) Essential hypertension (Acute) Anxiety (Chronic) Polyneuropathy (Acute) 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 (Acute) Right foot drop (Acute) Pain in thoracic spine (Acute) Urinary retention (Acute) Dyspnea (Acute) Neuropathic pain (Acute) Idiopathic osteoarthritis (Acute) Glaucoma (Chronic) Pleural plaque (Acute) Actinic keratosis (Acute) Disorder of lung (Acute) Steatosis, liver (Acute) Diastolic heart failure (Acute) Congestive heart failure (Chronic) Dementia (Chronic) Pain in lower limb (Acute) Insomnia (Acute) (HFpEF) heart failure with preserved ejection fraction (Acute) Restless leg syndrome (Acute) Cellulitis of lower extremity (Acute) Constipation (Acute) Decubital ulcer (Acute) Chronic anemia (Acute) 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 exposure (Acute) Respiratory failure with hypoxia (Acute) Bronchiectasis (Chronic) Nocturnal hypoxia (Acute) Dislodged Garcia catheter (Acute) Hematuria (Acute) Acute UTI (Acute) Abdominal pain (Acute) Diabetes mellitus (Chronic) BPH (benign prostatic hyperplasia) (Chronic) Essential hypertension (Acute) Lung infiltrate (Acute) UTI (urinary tract infection) (Acute) 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 Cortes [facility] Total replacement of hip (~1999) Right hip, later revised in 2005 left side 2007 Rotator Cuff Repair (~1996) Right Repair of inguinal hernia (08/31/11) Right sided with orchiectomy Endoscopic Carpal Tunnel release (05/04/15) Right by Dr. Ayala Extraction of cataract (02/15/16) [place] R with IOL; and L as well, Dr. Dickinson in [place] Family History Mother , CVA at age 85. Diabetes age 50 Essential hypertension Stroke Uterine cancer Father , Colon CA at age 87. Colon cancer Sister Breast cancer Sister Ovarian cancer Sister Ovarian cancer Brother Diabetes Son No problems noted. Daughter No problems noted. Son No problems noted. Social History Smoking/Tobacco Use Status: Never Smoking risk assessment performed?: Yes Alcohol Intake: never Drug use: Never Substance use type: does not use Caregiver/Support person: Yes Household members: spouse and children Housing: house Number of Children: 3 Communication Needs: Hard of Hearing and Corrective Lenses Do you need help understanding health information?: Always Do you think of yourself as: straight/heterosexual Current gender identity: male What is your relationship status?: How often do you talk on the phone with friends or family?: three or more times per week How often do you get together with friends or relatives?: three or more times per week Panel score (0-1 are the most socially isolated patients): 2 What type of physical activity do you participate in: sedentary lifestyle Special jesus needs: No Do you feel safe at home: Yes Do you feel safe in your relationship?: Yes Additional Social history: Phoenix lives with , Shawna and their younger son, Isiah. for almost 70 years (Shawna was 16, Phoenix was 21). Son Phoenix Sims visits every day. Lots of support. Exam Const General: cooperative and no acute distress Orientation: alert, awake and oriented x3 HENMT Head: normal to inspection Eyes General: appearance normal, both eyes and all related structures Neck Neck: normal visual inspection, full ROM, no lymphadenopathy and no JVD Resp Effort & Inspection: no respiratory distress, no tracheal deviation and no use of accessory muscles Auscultation: bronchial breath sounds and diminished lung sounds on the right Cardio Jugular venous pressure: no JVD Rate: regular rate Results Last Vital Signs Temp 99.0 F 01/27/24 05:01 Pulse 77 01/27/24 11:01 Resp 15 01/27/24 11:01 BP 107/57 L 01/27/24 11:01 Pulse Ox 84 L 01/27/24 11:01 Labs 01/27/24 05:25 01/27/24 05:25 Labs: Laboratory Results - last 24 hr 01/27/24 05:25 WBC 5.11 RBC 3.11 L Hgb 9.9 L Hct 30.1 L MCV 97 H MCH 31.8 MCHC 32.9 RDW 14.8 H Plt Count 213 MPV 10.8 Immature Gran % 0.4 Neutrophils % 58.7 Lymphocytes % 18.6 Monocytes % 13.9 Eosinophils % 7.6 Basophils % 0.8 Nucleated RBC % 0.0 Absolute Neutrophils 3.00 Absolute Lymphocytes 0.95 L Absolute Monocytes 0.71 Absolute Eosinophils 0.39 Absolute Basophils 0.04 Sodium 136 Potassium 3.8 Chloride 99 Carbon Dioxide 27.0 Anion Gap 10.0 BUN 93 H* Creatinine 4.0 H* Est GFR (CKD-EPI 2020) 13.89 Glucose 118 H Calcium 8.7 Total Bilirubin 0.3 AST 12 L ALT 12 L Alkaline Phosphatase 117 H Total Protein 6.7 Albumin 2.9 L
[2024-01-27] MEDS: Albuterol 2.5 MG/3 ML INH SOLN VIAL UPD (18:29)
--- NOTE | 2024-01-27 18:30 | DI.RAD_ITS ---
Exam(s) XR PORTABLE CHEST AP EXAM: XR PORTABLE CHEST AP CLINICAL HISTORY: dyspnea TECHNIQUE: 2D digital imaging was performed of the chest. One image was obtained. An AP view was ob tained. COMPARISON: CR,XR XR CHEST 2V PA LATERAL from 10/07/2023 CR XR PORTABLE CHEST AP from 01/21/[address] CHEST/ABD/PEL WO from 01/27/2024 FINDINGS: MEDIASTINUM: Normal. HEART: Heart is at the upper limits of normal to mildly enlarged. PULMONARY VASCULATURE: Pulmonary venous congestion. LUNGS: There opacity seen in the right lung. There is obscuration of the medial aspect of the left h emidiaphragm and left basilar infiltrate should be considered. The left lung is otherwise clear. PLEURAL SPACE: There is again seen a moderately large right pleural effusion. No left pleural effusi on is seen. No pneumothorax. BONE:Within normal limits for the patient's age. OTHER FINDINGS:Normal. IMPRESSION: 1. Moderately large right pleural effusion. Pulmonary venous congestion. The findings may represent fluid overload/CHF. 2. Opacities are seen in the right lung and question of infiltrate in the left lung base medially. T his may represent atelectasis or pneumonia. DATA REPOSITORY: RADIATION DOSE DELIVERED:
--- NOTE | 2024-01-27 18:42 | CE_ITS ---
Date of service: 01/27/24 Time of Service: 18:42 Event Note: Phoenix went into acute respiratory distress at the time I was giving signout to Dr. Bustamante (air quality instrument specialist), I went to the bedside and evaluated him and discussed his care w/ his nurse Smitha and w/ his respiratory therapist, Kavya. Phoenix has diffuse rales and wheezing, diaphoretic, BP is not high or low, SBP 120's, HR sinus w/1st AV block, rate in 70's I have ordered stat EKG, troponin, CXR, vbg and ordered morphine and bolus of lasix, he is currently getting albuterol nebulizer treatment when I walked into to examine him. DDX: flash pulmonary edema from his HFPEF, although why he would suddenly go into acute edema when he has been on diuril and lasix drip (although I did hold both for awhile this morning until I could perform bedside VEXUS exam this morning and while I was consulting w/ Dr. Hart). Acute coronary ischemia could also explain the sudden change. I have relayed to Dr. Bustamante to follow up on these studies and the patient to see how he responds to BIPAP and increased lasix and the morphine. Time Spent with Patient Time spent in critical care(minutes): 30 Time Spent Included: Coordination of care, Time at immediate bedside and Discussing critically ill care with other medical staff
--- NOTE | 2024-01-27 18:45 | RT.EKG_ITS ---
APPROVED REPORT Exam: Resting ECG Reason for Exam: dyspnea Patient Location: I HR:99 bpm ECG Measurements Heart Rate 99 AXIS GA 67 P 0 QRSd 149 QRS 103 QT 428 T 21 QTc 550 Conclusion Excessive artifact Probably atrial fibrillation RBBB and LPFB...QRSd >120mS, axis(90,210)
[2024-01-27 18:50] LABS: BE (Venous) 4 mmol/L (-2-3); HCO3 (Venous) 27 mmol/L (23-28); pCO2 (Venous) 34 mmHg (41-51); pH (Venous) 7.51 (7.31-7.41); pO2 (Venous) 122 mmHg
[2024-01-27] MEDS: MORPHine 2 MG/ML SYR 1 MG IVP (18:56)
[2024-01-27] MEDS: Normal Saline Flush 10 ML SYR (18:56)
[2024-01-27] MEDS: Furosemide 100 MG/10 ML VIAL IVP (18:56)
--- NOTE | 2024-01-27 19:00 | RT.EKG_ITS ---
APPROVED REPORT Exam: Resting ECG Reason for Exam: rhythm changes Patient Location: I HR:96 bpm ECG Measurements Heart Rate 96 AXIS HI 315 P -11 QRSd 150 QRS -137 QT 400 T -3 QTc 506 Conclusion Sinus rhythm...normal P axis, V-rate 50- 99 Ventricular premature complex...V complex w/ short R-R interval Prolonged HI interval...HI >215, V-rate 91-120 Right bundle branch block...QRSd>120, terminal axis(90,270) ST depr, consider ischemia, anterolateral lds...ST <-0.10mV, I aVL V2-V6 Baseline artifact Unable to determine rhythm Right bundle branch block
[2024-01-27 19:11] LABS: Troponin I < 50 ng/L (< or =60)
--- NOTE | 2024-01-27 19:41 | DI.VRAD_ITS ---
PROCEDURE INFORMATION: Exam: XR Chest Exam date and time: 01/27/2024 6:49 PM Age: 88 years old Clinical indication: Other: Dyspnea TECHNIQUE: Imaging protocol: Radiologic exam of the chest. Views: 1 view. Other technique: Portable exam. COMPARISON: CT CHEST WO 01/27/2024 11:31 AM FINDINGS: Lungs: The pulmonary vascularity appears redistributed. Coarse left lung base markings noted. Pleural spaces: There is a moderate to large right pleural effusion. Heart/Mediastinum: Cardiomegaly. Bones/joints: Unremarkable. IMPRESSION: Moderate to large right pleural effusion. Probable degree of associated congestive heart failure. Next lines impression new. Left lower lobe atelectasis. Dictated and Authenticated by: Aria Shaw MD. Ordering:.[facility] Linsey Romero MD
[2024-01-27 21:47] LABS: Troponin I < 50 ng/L (< or =60)
[2024-01-27] MEDS: Tamsulosin 0.4 MG CAPCR 0.8 MG PO (22:04)
[2024-01-27] MEDS: QUEtiapine 25 MG TAB 75 MG PO (22:11)
[2024-01-27] MEDS: Milk of Magnesia 30 ML CUP PO (23:07)
[2024-01-27] MEDS: Melatonin 3 MG TAB 6 MG PO (23:07)
[2024-01-28] VITALS (58 sets, daily range): BP systolic 91–120; BP diastolic 50–67; PULSE 70–89; RESP 9–24; TEMP 36.6–37.1; O2SAT 85–96
[2024-01-28] MEDS: Albuterol/Ipratropium 3 ML UPD VIAL UPD (00:38)
[2024-01-28 07:30] LABS: Anion Gap 10.2 mmol/L (3-11); CO2 30.8 mmol/L (21.0-32.0); Calcium 8.8 mg/dL (8.5-10.1); Chloride 100 mmol/L (98-107); Estimated GFR 13.48 (mL/min/1.73m2); Glucose 134 mg/dL (74-106); Potassium 3.9 mmol/L (3.5-5.1); Sodium 141 mmol/L (136-145)
[2024-01-28 07:36] LABS: BUN 96 mg/dL (7-18); CREATININE 4.1 mg/dL (0.70-1.30)
[2024-01-28] MEDS: Budesonide/Formoterol 80/4.5 6.9 GM 60 PUFF INH IH ×2 (07:36→19:42)
[2024-01-28] MEDS: Tiotropium Bromide-Respimat 10 PUFF INH IH (07:36)
--- NOTE | 2024-01-28 08:35 | PDOC.CMPRO ---
Date of service: 01/28/24 Care Management Progress Note Progress Note Text Progress Note Text: S/O: Per DIE STORAGE CLERK Jamie was not doing well and per RT he has been sleeping a lot so CM chose to note wake him and allowed to rest. CM spoke with Aydee who reports Jamie is having surgery this afternoon for his kidney and she is hopeful it all goes well. Aydee reports her son Isiah has been staying with her so she is not alone and has been helping go through papers and get some legal documents in place. CM following. A: Jamie is an 88 year old male admitted to [facility] 01/20/26 for acute renal failure. P: SNF referrals pending for [facility] SDOH(Care Management) Screening Will the Patient Participate in the Screening?: Yes Do you worry about having a steady place to live?: no In the past 12 months, have you had to go without electric, gas, oil or water in your home?: no Have you or anyone in your house had to go without enough food to eat?: no Has lack of transportation kept you from medical appointments or from doing things needed for daily living?: no Has anyone in your support network made you feel unsafe for any reason?: no
[2024-01-28] MEDS: Acetaminophen 325 MG TAB 650 MG PO ×3 (08:44→20:36)
[2024-01-28] MEDS: Polyethylene Glycol 3350 17 GM PACKET PO (08:44)
[2024-01-28] MEDS: Midodrine 2.5 MG TAB PO ×2 (08:45→20:36)
[2024-01-28] MEDS: Gabapentin 600 MG TAB 300 MG PO ×2 (08:45→20:36)
[2024-01-28] MEDS: Heparin 5,000 UNITS/ML VIAL 5000 UNITS SC ×2 (10:52→21:19)
[2024-01-28] MEDS: Latanoprost 0.005% 2.5 ML BTL OU (11:47)
--- NOTE | 2024-01-28 12:05 | PGE_ITS ---
Date of Service Date of service: 01/28/24 Time of Service: 12:05 Assessment and Plan Assessment and plan (1) Cardiorenal syndrome with renal failure: Status: Acute Assessment and plan: -worsening renal function likely due to cardiorenal in the setting of acute exacerbation of HFpEF as noted above -previous physican discussed with [facility]: -thinks that [place] presented w/ ATN on admission but d/t him not eating and drinking much prior to admission his UA did not show the casts and now that he has recovered from his sepsis and kidneys have been perfused -now showing casts and that the ATN is going to take time to recover, in the meantime, -resumed diuresis given his hepatic and renal congestion and pulmonary edema. -BUN roughly unchanged today, 4-> 4.1, BUN 93-> 96 -will continue lasix drip as patient had significant UOP overnight (2) Flash pulmonary edema: Status: Acute Assessment and plan: - 1900 last evening patient had event report and was determined to have had significant worsening of his hypoxia and shortness of breath that was determined to be secondary to fluid overload and flash pulmonary edema -He was placed on a Lasix drip and had significant urine output as noted above -Will continue to monitor urine output on Lasix drip -Patient's oxygen requirements also significantly improved back down to 2 L nasal cannula (3) Acute exacerbation of CHF (congestive heart failure): Status: Acute (4) Pulmonary hypertension: Assessment and plan: patient has underlying bronchiectasis and restrictive lung disease, unsure whether or not he has MINO or COPD. However he has PHTN but no RV dysfunction on his echo. pulmonary pressures may be elevated from diastolic HF (5) Pleural effusion: Status: Acute Assessment and plan: moderate right pleural effusion, may need thoracentesis, I dont think that this is going to resolve w/ diuretics. (6) UTI (urinary tract infection): Status: Acute Assessment and plan: -Enterobacter cloacae, sensitive to Rocephin, negative blood cultures. -repeat urine culture pending, he now has completed 5 days of Ceftriaxone which was finished 01/25 Qualifiers: Urinary tract infection type: acute cystitis Hematuria presence: without hematuria Qualified Code(s): N30.00 - Acute cystitis without hematuria (7) Essential hypertension: Status: Acute Assessment and plan: No losartan for now Continue metoprolol (8) BPH (benign prostatic hyperplasia): Status: Chronic Qualifiers: Lower urinary tract symptom presence: symptoms present Lower urinary tract symptom detail: incomplete bladder emptying Qualified Code(s): N40.1 - Benign prostatic hyperplasia with lower urinary tract symptoms; R39.14 - Feeling of incomplete bladder emptying (9) DVT prophylaxis: Status: Acute Assessment and plan: Continue Sc heparin (10) Discharge planning issues: Status: Acute (11) Atrial fibrillation: Status: Chronic Assessment and plan: per his he has history of afib but has been in SR w/ 1st degree AV block Qualifiers: Atrial fibrillation type: paroxysmal Qualified Code(s): I48.0 - Paroxysmal atrial fibrillation Subjective Subjective Interval history since last seen: Patient lethargic, is able to state immediately but quickly falls back to sleep. Exam Narrative Exam Narrative: Chronically ill-appearing older gentleman laying in bed in no acute distress, 2 L [address] cannula in place awakens to verbal stimuli but quickly falls back to sleep, heart regular rate rhythm, lungs diminished in bilateral bases, abdomen soft, nontender, nondistended Objective Last Vital Signs Temp 98.1 F 01/28/24 07:30 Pulse 70 01/28/24 11:01 Resp 16 01/28/24 11:01 BP 110/59 L 01/28/24 11:01 Pulse Ox 95 01/28/24 11:01 Laboratory Results - last 24 hr 01/27/24 01/27/24 01/28/24 18:45 21:10 05:30 VBG pH 7.51 H VBG pCO2 34 L VBG pO2 122 VBG HCO3 27 VBG Total CO2 VBG O2 Saturation VBG Base Excess 4 H Sodium 141 Potassium 3.9 Chloride 100 Carbon Dioxide 30.8 Anion Gap 10.2 BUN 96 H* Creatinine 4.1 H* Est GFR (CKD-EPI 2020) 13.48 Glucose 134 H Calcium 8.8 Troponin I < 50 < 50 Time Spent with Patient Time Spent with Patient: >50 minutes Time was spent: preparing to see the patient(eg.review tests), obtaining and/or reviewing separately otained hiistory, ordering medications,tests, procedures, referring, communicating with other health restorative care technician, indepentently interpreting results, counseling the patient and care coordination
--- NOTE | 2024-01-28 14:00 | PAPNONF_PTH ---
PATIENT: Jamie Aguilar LOC: ICU U#:[id number] AGE/SX: 88/M ROOM: ICU.221 RE01/21/[address]: Nick Stiles : 1935 BED: B DIS: 02/01/2024 SPEC #: [id number] RECD: 01/28/24 17:58 STATUS: RAY REQ #: [id number] DWAIN: 01/28/24 14:[address]: Nick Stiles DEPT: FA Cytology RECD BY: Kadi Sauer ENTERED: 01/28/24 17:59 SP TYPE: PAPALLY MURRIETA DR: Yvonne Solorio MD Brian Smith, MD [facility] Tissues: 1 - BODY FLUID CYTO(NOT S/U/N/EM)[facility] Procedures: BODY FLUID CYTO(NOT SPU/UR/NIP/ENDOM)[facility] Comments: [id number] (TV = 950 ml, SENT FRESH) (REFRIGERATED)
--- NOTE | 2024-01-28 14:05 | ROE_ITS ---
Date of service: 01/28/24 Time of Service: 14:05 Operative Note Operative Note DATE OF PROCEDURE: 01/28/24 PRE-OP DIAGNOSIS: Right-sided pleural effusion POST-OP DIAGNOSIS: same PROCEDURE: Ultrasound-guided right-sided thoracentesis SURGEON: Julián Cruz ANESTHESIA TYPE: Local By Surgeon Refer to Anesthesia Record ESTIMATED BLOOD LOSS: 5 PATHOLOGY: other (Pleural fluid to rule out malignant effusion) COMPLICATIONS: None Patient was transported to: ICU Patient's condition: stable Indications: Jamie is an 88-year-old male with congestive heart failure and acute on chronic renal insufficiency. He has a symptomatic right-sided pleural effusion of uncertain etiology Findings: 1450 mL of straw-colored right-sided pleural effusion Procedure Description: Jamie was met in the preoperative area, and we reviewed the planned procedure, indications, risks and benefits. He was able to provide informed consent. Next, we brought him into the procedure room. He was assisted upright on the bedside, and padded and supported appropriately. Next, I performed a limited ultrasound of the right chest. There was a large right-sided pleural effusion. I then prepped and draped the right chest in usual fashion. Next, using real- time ultrasound guidance, I established a generous field block below the level of the tip of the scapula in line with the midportion of the scapular body. I anesthetized down to the rib, and along the top side of the rib. I then made a small skin incision, and advanced a thoracentesis needle up and over the rib into the pleural space. I aspirated straw-colored fluid. The catheter was gently advanced as the needle was removed. Next, 50 mL of fluid were obtained for diagnostic testing. Vacutainer's were then attached, and the pleural effusion was drained. In total, 1450 mL of fluid were drained. Once the fluid stopped flowing, the catheter was removed under positive expiratory force, and the site was dressed with a Band-Aid. Jamie was assisted back to the supine position, transferred back to the surgical intensive care unit. He tolerated the procedure fine with no complications.
[2024-01-28 14:46] LABS: Clarity Clear; Mononuclear Cells 90 %; Nucleated Cells 223 uL (0); Polynuclear Cells 10 %; Source Thoracic
[2024-01-28] MEDS: QUEtiapine 25 MG TAB 75 MG PO (21:19)
[2024-01-28] MEDS: Tamsulosin 0.4 MG CAPCR 0.8 MG PO (21:19)
[2024-01-28 21:33] LABS: Glucose, Fluid 110 mg/dL (See Note)
[2024-01-29] VITALS (36 sets, daily range): BP systolic 88–130; BP diastolic 44–86; PULSE 70–104; RESP 12–21; TEMP 36.3–37.2; O2SAT 91–96
--- NOTE | 2024-01-29 | DI.RAD_ITS ---
Exam(s) XR KNEE RT 3V AP,LAT,GERA EXAM: XR KNEE RT 3V AP,LAT,GERA CLINICAL HISTORY: right knee plain, ? periprosthetic fracture. TECHNIQUE: 2D digital imaging was performed. COMPARISON: 04/27/2023 x-rays FINDINGS: 3 views No evidence of acute fracture but there is a joint effusion noted. 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 Also in the patellofemoral compartment. Chondrocalcinosis also noted in the medial compartment. 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 This is most evident in the later al compartment DATA REPOSITORY: RADIATION DOSE DELIVERED:
[2024-01-29] MEDS: Budesonide/Formoterol 80/4.5 6.9 GM 60 PUFF INH IH ×2 (07:54→20:10)
[2024-01-29] MEDS: Tiotropium Bromide-Respimat 10 PUFF INH IH (07:54)
[2024-01-29 08:57] LABS: Anion Gap 9.6 mmol/L (3-11); CO2 33.4 mmol/L (21.0-32.0); Calcium 9.1 mg/dL (8.5-10.1); Chloride 100 mmol/L (98-107); Estimated GFR 14.77 (mL/min/1.73m2); Glucose 120 mg/dL (74-106); Potassium 4.1 mmol/L (3.5-5.1); Sodium 143 mmol/L (136-145)
[2024-01-29 09:01] LABS: BUN 96 mg/dL (7-18); CREATININE 3.8 mg/dL (0.70-1.30)
[2024-01-29] MEDS: Heparin 5,000 UNITS/ML VIAL 5000 UNITS SC ×2 (09:33→20:23)
[2024-01-29] MEDS: Latanoprost 0.005% 2.5 ML BTL OU (09:33)
[2024-01-29] MEDS: Gabapentin 600 MG TAB 300 MG PO ×2 (09:34→20:36)
[2024-01-29] MEDS: Polyethylene Glycol 3350 17 GM PACKET PO (09:34)
[2024-01-29] MEDS: Acetaminophen 325 MG TAB 650 MG PO ×4 (09:34→20:22)
[2024-01-29] MEDS: Midodrine 2.5 MG TAB PO ×3 (09:34→20:23)
--- NOTE | 2024-01-29 10:07 | PDOC.CMPRO ---
Date of service: 01/29/24 Care Management Progress Note Progress Note Text Progress Note Text: S/O: Jamie was sitting up in bed singing after just having a visit from volunteer services who he shared played the [employer] music he requested. Jamie shared with CM he has been missing breakfast often since he is sleeping to he requested of his RN to be woken up in the morning so he can eat. CM and Jamie discussed possibly walking today per MD request; Jamie said possibly sitting up on the edge of the bed but was unsure about walking. He described at home he hadn't been walking much either and often sits in his chair. CM and Pt discussed possible SNF placement again if recommended to build strength; is agreeable. HARLEY has discussed this with Aydee as well. Jamie described that Linda cognitive functioning has changed over the last year and her PCP is aware as he reports he describes behaviors when he is able to. Jamie shared Aydee brought him a get well card and a banana this morning and says she likes cards a lot. A: Jamie is an 88 year old male admitted to [facility] 01/20/26 for acute renal failure. P: SNF referrals pending for [facility] for short term rehab. He will likely transport via w/c van, coordinated by HARLEY. He will f/u with his PCP and discharge plan of care. CM will continue to follow. SDOH(Care Management) Screening Will the Patient Participate in the Screening?: Yes Do you worry about having a steady place to live?: no In the past 12 months, have you had to go without electric, gas, oil or water in your home?: no Have you or anyone in your house had to go without enough food to eat?: no Has lack of transportation kept you from medical appointments or from doing things needed for daily living?: no Has anyone in your support network made you feel unsafe for any reason?: no
--- NOTE | 2024-01-29 10:30 | PGE_ITS ---
Date of Service Date of service: 01/29/24 Time of Service: 10:30 Assessment and Plan Assessment and plan (1) Cardiorenal syndrome with renal failure: Status: Acute Assessment and plan: -worsening renal function likely due to cardiorenal in the setting of acute exacerbation of HFpEF as noted above -previous physican discussed with [facility] Nephrology: -thinks that [place] presented w/ ATN on admission but d/t him not eating and drinking much prior to admission his UA did not show the casts and now that he has recovered from his sepsis and kidneys have been perfused -now showing casts and that the ATN is going to take time to recover, in the meantime, -resumed diuresis given his hepatic and renal congestion and pulmonary edema. -BUN mildly improved , 4, 4.1, 3.8 BUN 93, 96, 96 -will continue lasix drip through this afternoon and transition to IV lasix 40mg BID (2) Flash pulmonary edema: Status: Acute Assessment and plan: - 1900 last evening patient had event report and was determined to have had significant worsening of his hypoxia and shortness of breath that was determined to be secondary to fluid overload and flash pulmonary edema -He was placed on a Lasix drip and had significant urine output as noted above -Will continue to monitor urine output on Lasix drip -Patient's oxygen requirements also significantly improved back down to 2 L nasal cannula (3) Acute exacerbation of CHF (congestive heart failure): Status: Acute (4) Pulmonary hypertension: Assessment and plan: patient has underlying bronchiectasis and restrictive lung disease, unsure whether or not he has MINO or COPD. However he has PHTN but no RV dysfunction on his echo. pulmonary pressures may be elevated from diastolic HF (5) Pleural effusion: Status: Acute Assessment and plan: moderate right pleural effusion, may need thoracentesis, I dont think that this is going to resolve w/ diuretics. (6) UTI (urinary tract infection): Status: Acute Assessment and plan: -Enterobacter cloacae, sensitive to Rocephin, negative blood cultures. -repeat urine culture pending, he now has completed 5 days of Ceftriaxone which was finished 01/25 Qualifiers: Urinary tract infection type: acute cystitis Hematuria presence: wit hout hematuria Qualified Code(s): N30.00 - Acute cystitis without hematuria (7) Essential hypertension: Status: Acute Assessment and plan: No losartan for now Continue metoprolol (8) BPH (benign prostatic hyperplasia): Status: Chronic Qualifiers: Lower urinary tract symptom presence: symptoms present Lower urinary t ract symptom detail: incomplete bladder emptying Qualified Code(s): N40.1 - Benign prostatic hyperplasia with lower urinary tract symptoms; R39.14 - Feeling of incomplete bladder emptying (9) DVT prophylaxis: Status: Acute Assessment and plan: Continue Sc heparin (10) Discharge planning issues: Status: Acute (11) Atrial fibrillation: Status: Chronic Assessment and plan: per his he has history of afib but has been in SR w/ 1st degree AV block Qualifiers: Atrial fibrillation type: paroxysmal Qualified Code(s): I48.0 - Paroxysmal atrial fibrillation Subjective Subjective Interval history since last seen: Patient is much more alert and awake this morning and states that he is feeling much better. Exam Narrative Exam Narrative: Chronically ill-appearing older gentleman laying in bed in no acute distress, 2 L nasal cannula, Aox4, heart regular rate rhythm, lungs diminished in bilateral bases though improved airation as compared to previous day, abdomen soft, nontender, nondistended Objective Last Vital Signs Temp 98.8 F 01/29/24 07:41 Pulse 88 01/29/24 10:01 Resp 19 01/29/24 10:01 BP 126/60 01/29/24 10:01 Pulse Ox 92 01/29/24 10:01 Laboratory Results - last 24 hr 01/28/24 01/29/24 14:00 08:37 Sodium 143 Potassium 4.1 Chloride 100 Carbon Dioxide 33.4 H Anion Gap 9.6 BUN 96 H* Creatinine 3.8 H* Est GFR (CKD-EPI 2020) 14.77 Glucose 120 H Calcium 9.1 Fluid Source Thoracic Fluid Color Yellow Fluid Clarity Clear Fluid WBC 223 Fld Polynuclear WBCs % 10 Fluid Mononuclear Cell 90 Fluid Glucose 110 Time Spent with Patient Time Spent with Patient: >50 minutes Time was spent: preparing to see the patient(eg.review tests), obtaining and/or reviewing separately otained hiistory, ordering medications,tests, procedures, referring, communicating with other health animal care giver, indepentently interpreting results, counseling the patient and care coordination
--- NOTE | 2024-01-29 15:27 | IN_ITS ---
PT Notes Visit Reasons: Acute Renal Failure Inpatient Physical Therapy Evaluation Date: 01/29/2024 Referring Doctor: Tulio Hartmann MD PT Orders: PT CONSULT: Eval/Treat Precautions: Fall. Standard. STEDY lift for all transfers for safety. Patient Profile/Admitting Diagnosis: Patient is an 88-year-old male with medical history significant for restrictive lung disease and bronchiectasis, as well as h/o NIDDM2, HTN, BPH, who was brought to [facility] ED on 01/21/2024 due to increasing generalized weakness, difficulty standing up adn inability to walk along with shortness of breath and altered mental status. He is admitted for management of a acute renal failure, essential hypertension, HFpEF, BPH, pulmonary hypertension, and pleural effusion. Patient needed transfer to ICU on 01/25/2024 for close monitoring of of overall status and a new referral for PT was received today to reassess mo bility level. He is S/P US-guided R-sided thoracentesis on 01/27/2024. PMHx: All Active Problems (Updated 01/22/24 @ 16:08 by Desmond Mccullough MD) Discharge planning issues (Acute) DVT prophylaxis (Acute) Pleural effusion (Acute) Acute renal failure (Acute) Cardiac murmur (Acute) Essential hypertension (Acute) Anxiety (Chronic) Polyneuropathy (Acute) 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 (Acute) Right foot drop (Acute) Pain in thoracic spine (Acute) Urinary retention (Acute) Dyspnea (Acute) Neuropathic pain (Acute) Idiopathic osteoarthritis (Acute) Glaucoma (Chronic) Pleural plaque (Acute) Actinic keratosis (Acute) Disorder of lung (Acute) Steatosis, liver (Acute) Diastolic heart failure (Acute) Congestive heart failure (Chronic) Dementia (Chronic) Generalized edema (Acute) Pain in lower limb (Acute) Insomnia (Acute) (HFpEF) heart failure with preserved ejection fraction (Acute) Restless leg syndrome (Acute) Cellulitis of lower extremity (Acute) Constipation (Acute) Decubital ulcer (Acute) Chronic anemia (Acute) 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 exposure (Acute) Respiratory failure with hypoxia (Acute) Bronchiectasis (Chronic) Nocturnal hypoxia (Acute) Dislodged Garcia catheter (Acute) Hematuria (Acute) Acute UTI (Acute) Abdominal pain (Acute) Diabetes mellitus (Chronic) BPH (benign prostatic hyperplasia) (Chronic) Essential hypertension (Acute) Lung infiltrate (Acute) UTI (urinary tract infection) (Acute) 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 Cortes [facility] Total replacement of hip (~1999) Right hip, later revised in 2005 left side 2007 Rotator Cuff Repair (~1996) Right Repair of inguinal hernia (08/31/11) Right sided with orchiectomy Endoscopic Carpal Tunnel release (05/04/15) Right by Dr. Ayala Extraction of cataract (02/15/16) [place] R with IOL; and L as well, Dr. Dickinson in [place] Social History/Home Situation: Patient lives with his in a private home with two steps to enter. Has not been able to walk for over 6 months now. Only had been able to transfer from chair to bed. 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 Has supportive family members. Equipment Owned/DME: FWW, bedside commode, wheelchair, hospital bed Subjective: Complained of significant pain in the R knee that limited ability to tolerate standing. Complained of significant knee pain on the R at least 5-6/10 sitting at edge of bed and worsens if the knee is paced in more than 90 degrees of flexion and with weight bearing. Agreeable to trying out the STEDY lift for increased stability from bed to chair transfer.. Concerned about some mild cognitive issues with . Distantly considering short-term rehab placement. Per Nurse Kemi, patient has been given Tylenol earlier. Objective: General Observation: Sitting on bedside recliner, with LEs elevated. Garcia catheter in place. IV in L UE. Scabbed areas in R anterior lovell noted. Skin to B legs discolored. Mental Status: A&Ox3 Pain: As above ROM: Right Upper Extremity: Shoulder Flexion about 10 degrees only. Shoulder abduction less than 10 degrees. Elbow flexion WFL. Wrist flexion WFL. Functional opening and closing of hand WFL. Left Upper Extremity: Shoulder Flexion WFL. Shoulder abduction WFL. Elbow flexion WFL. Wrist flexion WFL. Functional opening and closing of hand WFL. Right Lower Extremity: Hip flexion WFL. Hip abduction WFL. Knee flexion WFL. Ankle dorsiflexion to neutral only. Ankle plantarflexion WFL. Left Lower Extremity: Hip flexion WFL. Hip abduction WFL. Knee flexion WFL. Ankle dorsiflexion to neutral only. Ankle plantarflexion WFL. Strength: Right Upper Extremity: Shoulder flexors 2-/5. Shoulder abductors 2-/5. Elbow flexors 4-/5. Elbow extensors 4-/5. [employer] strong. Left Upper Extremity: Shoulder flexors 4-/5. Shoulder abductors 4-/5. Elbow flexors 4-/5. Elbow extensors 4-/5. [employer] strong. Right Lower Extremity: Hip flexors 4-/5. Hip abductors 4-/5. Knee flexors 4-/5. Knee extensors 4-/5. Ankle dorsiflexors 3-/5. Ankle plantarflexors 4-/5. Left Lower Extremity: Hip flexors 4-/5. Hip abductors 4-/5. Knee flexors 4-/5. Knee extensors 4-/5. Ankle dorsiflexors 3-/5. Ankle plantarflexors 4-/5. Bed Mobility/Transfers: Moderate verbal cueing provided for movement sequence, posture, and use of B UE for support to reduce fall risk and pain report. Sit-supine: Moderate assist Sit to stand: Moderate assist of 2 using STEDY lift Bed to chair: Moderate assist of 2 using STED Y lift Gait: Deferred. Patient has not been able to walk due to persistent R knee pain for 3-6 months now. Balance: Static Sitting: Fair Dynamic Sitting: Poor Static Standing: Unable Dynamic Standing: Poor Special Tests: Mobility Limitations Standardized Measure [facility] AM-PAC 6 clicks Basic Mobility Inpatient Short Form: Raw Score: 9 CMS Score: 81% impairment Informed Consent/Education: Patient instructed in purpose of PT consult and plan of care, is agreeable with PT intervention focusing on improving safety of transfers as well as on increasing strength, balance, and standing tolerance. ASSESSMENT: Unable to efficiently mobilize and perform transfers and ambulation due to R knee pain and generalized weakness. Use STEDY lift for al transfers at this time. Patient is an 88-year-old male with medical history significant for restrictive lung disease and bronchiectasis, as well as h/o NIDDM2, HTN, BPH, who was brought to [facility] ED on 01/21/2024 due to increasing generalized wekaness, difficulty standing up adn inability to walk along with shortness of breath and altered mental status. He is admitted for management of a acute renal failure, essential hypertension, HFpEF, BPH, pulmonary hypertension, and pleural effusion. Patient presents with clinical signs and symptoms consistent with current/admitting diagnoses that have resulted to mobility limitations, gait instability, generalized weakness, and overall ADL decline as demonstrated by the following impairment level findings: 1. Decreased strength to B UE/LE major muscle groups 2. Impaired sitting/standing balance 3. Impaired activity tolerance 4. Limitation of joint range of motion in B shoulders and knees 5. Shortness of breath 6. Pain in B knees R<<L Impairments are contributing to the following functional limitations: 1. Decline in bed mobility skills 2. Decline in transfer skills 3. Difficulty with ambulation without assistive device and physical assistance 4. Increased completion time for mobility ADL performance 5. Increased risk for falls 6. Difficulty with managing steps alone safely Patient is assessed as Moderate 28965 complexity based on the following: History: Patient is an 88 year old male with extensive medical history, now in acute care for management of CFH with bilat LE edema. He reports recent decline in functional mobility, and requires skilled PT intervention for strengthening and gait training to allow for safe return home once medically stable. Examination: functional limitations as noted above Presentation: evolving Decision Makin moderate complexity Goals: Goals X1 week 1. Supine-Sit: supervision 2. Sit-Supine: supervision 3. Sit-Stand: minimal assist with FWW 4. Stand-Sit: minimal assist with FWW 5. Bed-Chair: minimal assist with FWW 6. Chair-Bed: minimal assist with FWW 7. Gait:minimal assist with FWW x 15 Plan of Care/Treatment Plan: 1-2x/day, 7 days/week x 1 week. Plan of care has been reviewed with the LEARNING AND DEVELOPMENT OFFICER providing the service under Physical Therapy direction. Initiate Physical Therapy intervention for strengthening, bed mobility, transfers, gait, stairs, balance training, use of assistive device. Coordinate with nurse for pain pre-medication. DISCHARGE RECOMMENDATIONS: Short-term rehab vs HH PT vs LTC TREATMENT CODE/TIME: 65683 x 29 minutes for 1 unit (15:27-15:56). Thank you for the opportunity to participate in the care of this patient. Katie Miller PT, DPT, CLT [facility] [place], [place]
[2024-01-29] MEDS: oxyCODONE 10 MG TAB PO ×2 (15:37→22:16)
[2024-01-29] MEDS: Furosemide 40 MG/4 ML VIAL IVP (16:37)
[2024-01-29 16:51] LABS: Fluid Type Pleural; Lactate Dehydrogenase (LD), BF 106 U/L
[2024-01-29] MEDS: Tamsulosin 0.4 MG CAPCR 0.8 MG PO (20:21)
[2024-01-29] MEDS: QUEtiapine 25 MG TAB 75 MG PO (20:22)
[2024-01-29] MEDS: Melatonin 3 MG TAB 6 MG PO (20:32)
[2024-01-30] VITALS (25 sets, daily range): BP systolic 86–121; BP diastolic 48–81; PULSE 77–91; RESP 14–29; TEMP 36.7–37; O2SAT 88–95
[2024-01-30] MEDS: oxyCODONE 10 MG TAB PO ×3 (02:18→16:33)
[2024-01-30 07:04] LABS: HCT 31.8 % (40.0-50.0); HGB 10.2 g/dL (13.5-17.5); MCH 31.7 pg (27.0-33.0); MCHC 32.1 % (32.0-36.0); MCV 99 fL (80-95); Platelet Count 278 10^3/uL (130-400); RBC 3.22 10^6/uL (4.36-5.78); RDW 14.7 % (11.8-14.1); RDW-SD 53.4 fL; WBC 6.12 10^3/uL (4.4-10.8)
[2024-01-30 07:20] LABS: Anion Gap 6.5 mmol/L (3-11); CO2 36.5 mmol/L (21.0-32.0); Chloride 101 mmol/L (98-107); Estimated GFR 15.76 (mL/min/1.73m2); Glucose 111 mg/dL (74-106); Potassium 3.9 mmol/L (3.5-5.1); Sodium 144 mmol/L (136-145)
[2024-01-30 07:23] LABS: BUN 93 mg/dL (7-18)
[2024-01-30 07:24] LABS: CREATININE 3.6 mg/dL (0.70-1.30)
[2024-01-30] MEDS: Budesonide/Formoterol 80/4.5 6.9 GM 60 PUFF INH IH ×2 (07:55→20:25)
[2024-01-30] MEDS: Tiotropium Bromide-Respimat 10 PUFF INH IH (07:55)
[2024-01-30] MEDS: Acetaminophen 325 MG TAB 650 MG PO ×4 (07:58→20:25)
[2024-01-30] MEDS: Midodrine 2.5 MG TAB PO ×3 (07:59→20:25)
[2024-01-30] MEDS: Polyethylene Glycol 3350 17 GM PACKET PO (07:59)
[2024-01-30] MEDS: Gabapentin 600 MG TAB 300 MG PO ×2 (07:59→20:25)
[2024-01-30] MEDS: Furosemide 40 MG/4 ML VIAL IVP ×2 (08:00→16:33)
--- NOTE | 2024-01-30 09:05 | W.PM.PROGNOT ---
Date of Service Date of service: 01/30/24 Time of Service: 09:06 Assessment and Plan Assessment and plan (1) Cardiorenal syndrome with renal failure: Status: Acute Assessment and plan: -worsening renal function likely due to cardiorenal in the setting of acute exacerbation of HFpEF as noted above -previous physican discussed with [facility] [place] Nephrology: -thinks that [place] presented w/ ATN on admission but d/t him not eating and drinking much prior to admission his UA did not show the casts and now that he has recovered from his sepsis and kidneys have been perfused -now showing casts and that the ATN is going to take time to recover, in the meantime, -resumed diuresis given his hepatic and renal congestion and pulmonary edema. -BUN mildly improved , 4, 4.1, 3.8, 3.6 BUN 93, 96, 96 -was on lasix drip through afternoon 01/28 and has since been transitioned to IV lasix 40mg BID (2) Flash pulmonary edema: Status: Acute Assessment and plan: - 1900 last evening patient had event report and was determined to have had significant worsening of his hypoxia and shortness of breath that was determined to be secondary to fluid overload and flash pulmonary edema -He was placed on a Lasix drip and had significant urine output as noted above -Will continue to monitor urine output on in BID lasix -Patient's oxygen requirements also significantly improved back down to 2 L nasal cannula (3) Acute exacerbation of CHF (congestive heart failure): Status: Acute (4) Pulmonary hypertension: Assessment and plan: patient has underlying bronchiectasis and restrictive lung disease, unsure whether or not he has MINO or COPD. However he has PHTN but no RV dysfunction on his echo. pulmonary pressures may be elevated from diastolic HF (5) Pleural effusion: Status: Acute Assessment and plan: moderate right pleural effusion, may need thoracentesis, I dont think that this is going to resolve w/ diuretics. (6) UTI (urinary tract infection): Status: Acute Assessment and plan: -Enterobacter cloacae, sensitive to Rocephin, negative blood cultures. -repeat urine culture pending, he now has completed 5 days of Ceftriaxone which was finished 01/25 Qualifiers: Urinary tract infection type: acute cystitis Hematuria presence: without hematuria Qualified Code(s): N30.00 - Acute cystitis without hematuria (7) Essential hypertension: Status: Acute Assessment and plan: No losartan for now Continue metoprolol (8) BPH (benign prostatic hyperplasia): Status: Chronic Qualifiers: Lower urinary tract symptom presence: symptoms present Lower urinary tract symptom detail: incomplete bladder emptying Qualified Code(s): N40.1 - Benign prostatic hyperplasia with lower urinary tract symptoms; R39.14 - Feeling of incomplete bladder emptying (9) DVT prophylaxis: Status: Acute Assessment and plan: Continue Sc heparin (10) Discharge planning issues: Status: Acute (11) Atrial fibrillation: Status: Chronic Assessment and plan: per his he has history of afib but has been in SR w/ 1st degree AV block Qualifiers: Atrial fibrillation type: paroxysmal Qualified Code(s): I48.0 - Paroxysmal atrial fibrillation Subjective Subjective Interval history since last seen: Patient states that he is feeling significantly better today, though he is having the shakes. It was explained to him that this is likely due to opiate withdrawal as he was unable to safely take his opiates first few days of his hospitalization due to altered mental status. He understands that he is now being given opiates and he would begin to feel better soon. Otherwise he has no other complaints concerns at this time. Exam Narrative Exam Narrative: Chronically ill-appearing older gentleman laying in bed in no acute distress, 2 L nasal cannula, Aox4, heart regular rate rhythm, lungs diminished in bilateral bases though improved airation as compared to previous day, abdomen soft, nontender, nondistended Objective Last Vital Signs Temp 98.6 F 01/30/24 02:55 Pulse 81 01/30/24 04:17 Resp 16 01/30/24 04:17 BP 91/50 L 01/30/24 04:17 Pulse Ox 89 L 01/30/24 07:59 Laboratory Results - last 24 hr 01/28/24 01/30/24 14:00 06:00 WBC 6.12 RBC 3.22 L Hgb 10.2 L Hct 31.8 L MCV 99 H MCH 31.7 MCHC 32.1 RDW 14.7 H Plt Count 278 MPV 10.0 Sodium 144 Potassium 3.9 Chloride 101 Carbon Dioxide 36.5 H Anion Gap 6.5 BUN 93 H* Creatinine 3.6 H* Est GFR (CKD-EPI 2020) 15.76 Glucose 111 H Calcium 9.0 Fluid Type Pleural Fluid LDH 106 Path Cons Comment SEE COMMENT Time Spent with Patient Time Spent with Patient: >50 minutes Time was spent: preparing to see the patient(eg.review tests), obtaining and/or reviewing separately otained hiistory, ordering medications,tests, procedures, referring, communicating with other health health care administrator, indepentently interpreting results, counseling the patient and care coordination
--- NOTE | 2024-01-30 09:15 | PDOC.CMPRO ---
Date of service: 01/30/24 Care Management Progress Note Progress Note Text Progress Note Text: S/O: Jamie was sitting up in a chair when talking with CM. Jamie shared he had a few visitors throughout today; his son and his and one of his brothers. Jamie discussed he is one of 12 children and one of the oldest of four males. Jamie discussed with CM that he was born in [place] but could not find a home to buy so moved to [place]. He reports he will be selling the home in [place] and moving to [facility] where he will rent a place that is more manageable with his health needs. Per RN Pt is now med/surg status and will be moved out of ICU. A: Jamie is an 88 year old male admitted to [facility] 01/20/26 for acute renal failure. P: SNF referrals pending for [facility] and [facility] for [facility] term re[facility]. He will likely transport via w/c van, coordinated by CM. He will f/u with his PCP and discharge plan of care. CM will continue to follow SDOH(Care Management) Screening Will the Patient Participate in the Screening?: Yes Do you worry about having a steady place to live?: no In the past 12 months, have you had to go without electric, gas, oil or water in your home?: no Have you or anyone in your house had to go without enough food to eat?: no Has lack of transportation kept you from medical appointments or from doing things needed for daily living?: no Has anyone in your support network made you feel unsafe for any reason?: no
[2024-01-30 09:35] LABS: Fluid Type Pleural; Protein,Total, BF 3.5 g/dL
[2024-01-30] MEDS: Heparin 5,000 UNITS/ML VIAL 5000 UNITS SC ×2 (09:42→20:26)
--- NOTE | 2024-01-30 10:17 | PT.INTREAT ---
PT Notes Visit Reasons: Acute Renal Failure Inpatient Physical Therapy Treatment Note [facility] Date: 01/30/24 PRECAUTIONS:Standard Fall OBJECTIVE: Therapeutic Activities ([id number][1]): Direct one-on-one instruction in dynamic activities to improve functional performance. ? BED MOBILITY/TRANSFERS? Supine-sit: Max x2 ? Sit-stand: Steady Mod x2 with bed elevated ? Stand-sit: Min/modx3 ? Bed-Chair: Steady ? Pt refused exercises due to having company. Pt reports he will catch me later on that. ? ASSESSMENT:? Pt required a far amount of assist with transfers. Pt seems to be still experiencing a lot of discomfort with transfers. PLAN: Cont as per PT POC. TREATMENT CODE/TIME: 10:15 (15) TA
[2024-01-30] MEDS: Latanoprost 0.005% 2.5 ML BTL OU (10:56)
[2024-01-30] MEDS: Normal Saline Flush 10 ML SYR IVP ×2 (16:33→23:41)
[2024-01-30] MEDS: Tamsulosin 0.4 MG CAPCR 0.8 MG PO (20:25)
[2024-01-30] MEDS: QUEtiapine 25 MG TAB 75 MG PO (20:26)
[2024-01-30] MEDS: Miconazole 2% Topical Powder 85 GM BTL (23:00)
[2024-01-31] VITALS (24 sets, daily range): BP systolic 86–121; BP diastolic 43–72; PULSE 75–93; RESP 20; TEMP 36.5–37.8; O2SAT 86–95
[2024-01-31] MEDS: oxyCODONE 10 MG TAB PO ×4 (02:10→21:41)
[2024-01-31 07:22] LABS: Anion Gap 4.4 mmol/L (3-11); CO2 37.6 mmol/L (21.0-32.0); CREATININE 3.4 mg/dL (0.70-1.30); Calcium 8.9 mg/dL (8.5-10.1); Chloride 102 mmol/L (98-107); Estimated GFR 16.88 (mL/min/1.73m2); Glucose 115 mg/dL (74-106); Potassium 4.4 mmol/L (3.5-5.1); Sodium 144 mmol/L (136-145)
[2024-01-31 07:24] LABS: BUN 96 mg/dL (7-18)
[2024-01-31] MEDS: Furosemide 40 MG/4 ML VIAL IVP ×2 (07:55→15:39)
[2024-01-31] MEDS: Midodrine 2.5 MG TAB PO ×3 (07:56→19:35)
[2024-01-31] MEDS: Acetaminophen 325 MG TAB 650 MG PO ×4 (07:56→19:34)
[2024-01-31] MEDS: Gabapentin 600 MG TAB 300 MG PO ×2 (07:56→19:35)
[2024-01-31] MEDS: Polyethylene Glycol 3350 17 GM PACKET PO (07:57)
[2024-01-31] MEDS: Normal Saline Flush 10 ML SYR IVP (07:58)
[2024-01-31] MEDS: Latanoprost 0.005% 2.5 ML BTL OU (08:09)
[2024-01-31] MEDS: Tiotropium Bromide-Respimat 10 PUFF INH IH (08:35)
[2024-01-31] MEDS: Budesonide/Formoterol 80/4.5 6.9 GM 60 PUFF INH IH ×2 (08:35→20:10)
--- NOTE | 2024-01-31 08:37 | CMPROGNOTE_ITS ---
Date of service: 01/31/24 Care Management Progress Note Progress Note Text Progress Note Text: S/O: Jamie was lying down in bed, reported feeling tired today. He shared his grandson had just left and came to help him eat. CM discussed per Jamie is able to transition to a SNF when a bed is available. CM followed up with [facility] and the [facility]. Jamie shared he is agreeable to [facility] if no other local options are available but his first choice would be [facility] will need to discuss other options if neither local as Jamie is medically cleared to discharge. CM following. A: Jamie is an 88 year old male admitted to [facility] 01/20/26 for acute renal failure. P: SNF referrals pending for [facility] and [facility] for short term rehab. He will likely transport via w/c van, coordinated by CM. He will f/u with his PCP and discharge plan of care. CM will continue to follow SDOH(Care Management) Screening Will the Patient Participate in the Screening?: Yes Do you worry about having a steady place to live?: no In the past 12 months, have you had to go without electric, gas, oil or water in your home?: no Have you or anyone in your house had to go without enough food to eat?: no Has lack of transportation kept you from medical appointments or from doing things needed for daily living?: no Has anyone in your support network made you feel unsafe for any reason?: no
--- NOTE | 2024-01-31 08:56 | W.PM.PROGNOT ---
Date of Service Date of service: 01/31/24 Time of Service: 08:56 Assessment and Plan Assessment and plan (1) Cardiorenal syndrome with renal failure: Status: Acute Assessment and plan: -worsening renal function likely due to cardiorenal in the setting of acute exacerbation of HFpEF as noted above -previous physican discussed with [facility] [place] Nephrology: -thinks that [place] presented w/ ATN on admission but d/t him not eating and drinking much prior to admission his UA did not show the casts and now that he has recovered from his sepsis and kidneys have been perfused -now showing casts and that the ATN is going to take time to recover, in the meantime, -resumed diuresis given his hepatic and renal congestion and pulmonary edema. -BUN mildly improved , 4, 4.1, 3.8, 3.6, 3.4 BUN 93, 96, 96 -was on lasix drip through afternoon 01/28 and has since been transitioned to IV lasix 40mg BID with good UOP (2) Flash pulmonary edema: Status: Acute Assessment and plan: - 1900 evening of 01/26 patient had event report and was determined to have had significant worsening of his hypoxia and shortness of breath that was determined to be secondary to fluid overload and flash pulmonary edema -He was placed on a Lasix drip and had significant urine output as noted above -Will continue to monitor urine output on in BID lasix -Patient's oxygen requirements also significantly improved back down to 1 L nasal cannula (3) Acute on chronic respiratory failure with hypoxia: Status: Acute Assessment and plan: -due to above -normally requires 2L NC at home -required BiPAP but has been been weaned down to his baseline 2L NC (4) Acute exacerbation of CHF (congestive heart failure): Status: Acute (5) Pulmonary hypertension: Assessment and plan: patient has underlying bronchiectasis and restrictive lung disease, unsure whether or not he has MINO or COPD. However he has PHTN but no RV dysfunction on his echo. pulmonary pressures may be elevated from diastolic HF (6) Pleural effusion: Status: Acute Assessment and plan: moderate right pleural effusion, s/p thoracentesis with 1,400ml out (7) UTI (urinary tract infection): Status: Acute Assessment and plan: -Enterobacter cloacae, sensitive to Rocephin, negative blood cultures. -repeat urine culture pending, he now has completed 5 days of Ceftriaxone which was finished 01/25 Qualifiers: Urinary tract infection type: acute cystitis Hematuria presence: without hematuria Qualified Code(s): N30.00 - Acute cystitis without hematuria (8) Essential hypertension: Status: Acute Assessment and plan: No losartan for now Continue metoprolol (9) BPH (benign prostatic hyperplasia): Status: Chronic Qualifiers: Lower urinary tract symptom presence: symptoms present Lower urinary tract symptom detail: incomplete bladder emptying Qualified Code(s): N40.1 - Benign prostatic hyperplasia with lower urinary tract symptoms; R39.14 - Feeling of incomplete bladder emptying (10) DVT prophylaxis: Status: Acute Assessment and plan: Continue Sc heparin (11) Discharge planning issues: Status: Acute (12) Atrial fibrillation: Status: Chronic Assessment and plan: per his he has history of afib but has been in SR w/ 1st degree AV block Qualifiers: Atrial fibrillation type: paroxysmal Qualified Code(s): I48.0 - Paroxysmal atrial fibrillation Subjective Subjective Interval history since last seen: Patient states that he continues to feel better. He understands we are working on subacute rehab placement for him to work on his strength and independence. Otherwise has no other complaints or concerns at Exam Narrative Exam Narrative: Chronically ill-appearing older gentleman laying in bed in no acute distress, 1 L nasal cannula, Aox4, heart regular rate rhythm, lungs diminished in bilateral bases though improved airation as compared to previous day, abdomen soft, nontender, nondistended Objective Last Vital Signs Temp 98.1 F 01/30/24 13:12 Pulse 80 01/31/24 06:01 Resp 16 01/30/24 13:13 BP 99/52 L 01/31/24 06:01 Pulse Ox 93 01/31/24 08:38 Laboratory Results - last 24 hr 01/28/24 01/31/24 14:00 05:38 Sodium 144 Potassium 4.4 Chloride 102 Carbon Dioxide 37.6 H Anion Gap 4.4 BUN 96 H* Creatinine 3.4 H Est GFR (CKD-EPI 2020) 16.88 Glucose 115 H Calcium 8.9 Fluid Type Pleural Fluid Total Protein 3.5 Time Spent with Patient Time Spent with Patient: >50 minutes Time was spent: preparing to see the patient(eg.review tests), obtaining and/or reviewing separately otained hiistory, ordering medications,tests, procedures, referring, communicating with other health palliative care physician, indepentently interpreting results, counseling the patient and care coordination
[2024-01-31] MEDS: Heparin 5,000 UNITS/ML VIAL 5000 UNITS SC ×2 (10:15→21:41)
--- NOTE | 2024-01-31 14:49 | PT.INTREAT ---
PT Notes Visit Reasons: Acute Renal Failure Date: 01/31/24 PRECAUTIONS: Standard SUBJECTIVE: Pt in bed when approached for therapy this afternoon, pt refuse any activity that would demand pt get out of bed, pt agreed to participating with bed level exercises, pt refused multiple offer to get pt to transfer to the recliner. Objective: ? Therapeutic Exercises 22743 30mins: Direct one-on-one instruction in therapeutic exercises to develop strength, endurance, range of motion and flexibility. Exercises AROM on gravity eliminated plane/ AAROM on gravity resisted plane Hip abd x 10 Q.S. x 10 Ankle pumps x 10 AAROM on gravity resisted plane Heel slides x 10 SLR x 10 SKTC x10 Clamshells x10 Supine shoulder flexion extension x 10 Shoulder rows x10 Purse lip breathing ASSESSMENT:? Pt reports the back of his right knee is very itchy, pt able to perform exercises with verbal and tactile cue for guidance, adamant he doesnt want to go to the recliner. PLAN: Cont as per PT POC. TREATMENT CODE/TIME: 32741q6, 2:25-2:50pm (25mins)
--- NOTE | 2024-01-31 19:00 | DI.RAD_ITS ---
Exam(s) XR PORTABLE CHEST AP EXAM: XR PORTABLE CHEST AP CLINICAL HISTORY: poss pneumonia. TECHNIQUE: 2D digital imaging was performed. COMPARISON: CT CT CHEST/ABD/PEL WO from 01/27/2024 FINDINGS: Single AP portable view. There is cardiomegaly again noted. Mediastinum unchanged. Amount of infiltrate and pleural effusion on the right side is relatively stable with minimal improve ment. Left lower lobe infiltrate/retrocardiac also again noted. IMPRESSION: No significant radiographic improvement DATA REPOSITORY: RADIATION DOSE DELIVERED:
[2024-01-31 19:43] LABS: Bilirubin Negative (Negative); Blood Moderate (Negative); Clarity Clear (Clear); Glucose Negative (Negative); Ketones Negative (Negative); Leukocyte Esterase Small (Negative); Nitrite Negative (Negative); Urobilinogen 0.2 mg/dL (Up to 0.2)
[2024-01-31 19:44] LABS: Abs Immature Grans 0.03 10^3/uL (0.0-0.06); Absolute Basophil Count 0.07 10^3/uL (0.0-0.2); Absolute Eosinophil Count 0.64 10^3/uL (0.0-0.7); Absolute Lymphocyte Count 1.25 10^3/uL (1.2-3.4); Absolute Monocyte Count 0.96 10^3/uL (0.1-0.8); Absolute Neutrophil Count 5.31 10^3/uL (1.2-6.7); Basophils % 0.8; Eosinophils % 7.7; HCT 34.1 % (40.0-50.0); HGB 10.9 g/dL (13.5-17.5); Immature Grans % 0.4; Lymphocytes % 15.1; MCH 31.7 pg (27.0-33.0); MCV 99 fL (80-95); MPV 9.7 fL (8.0-11.0); Monocytes % 11.6; Neutrophils % 64.4; Platelet Count 323 10^3/uL (130-400); RBC 3.44 10^6/uL (4.36-5.78); RDW 14.6 % (11.8-14.1); RDW-SD 53.3 fL; WBC 8.26 10^3/uL (4.4-10.8)
[2024-01-31 19:45] LABS: Bacteria Rare HPF (Negative); C & S Indicated? C&S Done As Ordered; Casts Negative LPF (Negative); Crystals Negative HPF (Negative); Epithelial Cells Negative HPF (Negative); Mucus Negative (Negative); RBC 20-50 HPF (0-2)
[2024-01-31 19:56] LABS: Anion Gap 6.9 mmol/L (3-11); CO2 39.1 mmol/L (21.0-32.0); Calcium 9.6 mg/dL (8.5-10.1); Chloride 99 mmol/L (98-107); Estimated GFR 15.25 (mL/min/1.73m2); Glucose 158 mg/dL (74-106); Potassium 4.6 mmol/L (3.5-5.1); Sodium 145 mmol/L (136-145)
[2024-01-31 19:59] LABS: BUN 96 mg/dL (7-18); CREATININE 3.7 mg/dL (0.70-1.30)
[2024-01-31] MEDS: Melatonin 3 MG TAB 6 MG PO (20:46)
--- NOTE | 2024-01-31 20:55 | DI.VRAD_ITS ---
PROCEDURE INFORMATION: Exam: XR Chest Exam date and time: 01/31/2024 8:07 PM Age: 88 years old Clinical indication: Other: Poss pneumonia TECHNIQUE: Imaging protocol: Radiologic exam of the chest. Views: 1 view. COMPARISON: CR XR PORTABLE CHEST AP 01/27/2024 6:49 PM FINDINGS: Lungs: Low lung volumes. Mild central vascular congestion. Moderate right and mild left basilar alveolar opacities consistent with pneumonia, atelectasis, or edema are moderately improved from 01/27/2024. Pleural spaces: Right-sided calcific pleural plaque again noted. Small to moderate right pleural effusion is mildly decreased. Previous small left basilar effusion is not evident radiographically. No pneumothorax. Heart/Mediastinum: Mild cardiomegaly. No tracheal/mediastinal shift. Bones/joints: No acute osseous abnormalities are identified. Osteopenia. IMPRESSION: 1. Overall mild-moderate improvement from 01/27/2024. 2. Mild to moderate right-sided pleural effusion is decreased. Previous small left pleural effusion is not evident radiographically. 3. Moderate right and mild left basilar airspace disease consistent with pneumonia, atelectasis, or edema is decreased. Dictated and Authenticated by: Johnnie Martinez MD. Ordering:ROSETTA Joyce MD
[2024-01-31] MEDS: QUEtiapine 25 MG TAB 75 MG PO (21:41)
[2024-01-31] MEDS: Tamsulosin 0.4 MG CAPCR 0.8 MG PO (21:42)
[2024-01-31] MEDS: CEFEPIME 2 GM in Normal Saline 100 ML IVPB (23:22)
[2024-01-31] MEDS: VANCOMYCIN/WATER (PEG) 2 GM/400 ML BAG IVPB (23:42)
[2024-02-01] VITALS (20 sets, daily range): BP systolic 104–125; BP diastolic 61–90; PULSE 75–87; RESP 3–20; TEMP 36.8–37.2; O2SAT 79–97
[2024-02-01] MEDS: Albuterol/Ipratropium 3 ML UPD VIAL UPD (01:03)
[2024-02-01] MEDS: Normal Saline Flush 10 ML SYR IVP (01:18)
[2024-02-01] MEDS: Lidocaine 2% Jelly 11 ML SYR UR (01:19)
[2024-02-01] MEDS: oxyCODONE 10 MG TAB PO ×2 (06:55→14:23)
[2024-02-01] MEDS: Gabapentin 600 MG TAB 300 MG PO (07:53)
[2024-02-01] MEDS: Acetaminophen 325 MG TAB 650 MG PO ×2 (07:53→11:16)
[2024-02-01] MEDS: Midodrine 2.5 MG TAB PO ×2 (07:53→14:22)
[2024-02-01] MEDS: Polyethylene Glycol 3350 17 GM PACKET PO (07:54)
[2024-02-01] MEDS: Latanoprost 0.005% 2.5 ML BTL OU (07:54)
[2024-02-01] MEDS: Furosemide 40 MG/4 ML VIAL IVP (07:54)
[2024-02-01] MEDS: Tiotropium Bromide-Respimat 10 PUFF INH IH (08:47)
[2024-02-01] MEDS: Budesonide/Formoterol 80/4.5 6.9 GM 60 PUFF INH IH (08:47)
--- NOTE | 2024-02-01 09:42 | DI.RAD_ITS ---
Exam(s) XR PORTABLE CHEST AP EXAM: XR PORTABLE CHEST AP CLINICAL HISTORY: increased O2 requirement. TECHNIQUE: 2D digital imaging was performed. COMPARISON: CT CT CHEST/ABD/PEL WO from 01/27/2024 CR,XR XR PORTABLE CHEST AP from 01/31/2024 FINDINGS: Single AP portable view. Heart size is unchanged. The mediastinum is not widened. There is no radiographic improvement in the right lower lobe infiltrate and moderate size right pleur al effusion. Also persistent left lower lobe infiltrate. There is calcified pleural plaque again noted over the medial aspect of the right lower lobe. IMPRESSION: No radiographic improvement in the bilateral lower lobe infiltrates and moderate size right pleural e ffusion. Calcified pleural plaque noted. Correlation with prior asbestos related exposure recommended. DATA REPOSITORY: RADIATION DOSE DELIVERED:
[2024-02-01] MEDS: Heparin 5,000 UNITS/ML VIAL 5000 UNITS SC (09:48)
--- NOTE | 2024-02-01 11:11 | DSE_ITS ---
Date of service: 02/01/24 Time of Service: 12:07 DS: Diagnosis Discharge Diagnosis (1) Cardiorenal syndrome with renal failure: Status: Acute Asessment and Plan: -worsening renal function likely due to cardiorenal in the setting of acute exacerbation of HFpEF as noted above -previous physican discussed with [facility] [place] [facility]: -thinks that [place] presented w/ ATN on admission but d/t him not eating and d rinking much prior to admission his UA did not show the casts and now that he has recovered from his sepsis and kidneys have been perfused -now showing casts and that the ATN is going to take time to recover, in the meantime, -resumed diuresis given his hepatic and renal congestion and pulmonary edema. -BUN mildly improved , 4, 4.1, 3.8, 3.6, 3.4 BUN 93, 96, 96 -was on lasix drip through afternoon 01/28 and has since been transitioned to IV lasix 40mg BID with good UOP -Restarted losartan at discharge (2) Flash pulmonary edema: Status: Acute Asessment and Plan: - 1900 evening of 01/26 patient had event report and was determined to have had significant worsening of his hypoxia and shortness of breath that was determined to be secondary to fluid overload and flash pulmonary edema -Diuretic regimen as noted above (3) Acute on chronic respiratory failure with hypoxia: Status: Acute Asessment and Plan: - Significant improvement in oxygen requirement down to 1 to 2 L nasal cannula (4) Acute exacerbation of CHF (congestive heart failure): Status: Acute (5) Pulmonary hypertension: (6) Pleural effusion: Status: Acute Asessment and Plan: moderate right pleural effusion, s/p thoracentesis with 1,400ml out (7) UTI (urinary tract infection): Status: Acute (8) Essential hypertension: Status: Acute (9) BPH (benign prostatic hyperplasia): Status: Chronic (10) Atrial fibrillation: Status: Chronic Discharge Plan Disposition Patient Disposition: Residential Facility(SNF) Condition: Good Discharge Details Reason For Visit: Acute Renal Failure Admit Date/Time: 01/21/24 13:39 Admit Provider: Nick Stiles Attending Provider: Nick Stiles Primary Care Provider: Yvonne Solorio Hospital Course Hospital Course: Patient initially presented with community-acquired pneumonia and severe sepsis with during hospitalization developed acute exacerbation of CHF and cardiorenal syndrome. Resulting in flash pulmonary edema and pleural effusion. Had thoracentesis and was aggressively diuresed and had significant improvement of his oxygen requirements back down to a baseline of 2 L nasal cannula. Ultimately was determined that the patient had significant improvement of his symptoms and was determined to be stable for discharge to subacute Home Meds and New Rx's Prescriptions: New midodrine 2.5 mg Tablet 2.5 mg PO TID Qty: 90 0RF cefpodoxime 200 mg tablet 200 mg PO BID Qty: 14 0RF Rx Instructions: must administer with a meal/food losartan 50 mg tablet 50 mg PO DAILY Qty: 90 0RF furosemide [Lasix] 40 mg tablet 60 mg PO BID Qty: 90 0RF Continued Linzess 290 mcg capsule 290 mcg PO DAILY PRN acetaminophen 500 MG tablet 1,000 mg PO Q4H PRN Patient Comments: Not on medication list naloxone [Narcan] 4 MG spray,non-aerosol 4 mg NS as directed 1 Days Qty: 2 0RF Rx Instructions: instill 1 spray into 1 nostril for opioid overdose-may repeat once in opposite nostril if no response sodium chloride 7 % solution for nebulization See Rx Instructions .ROUTE .COMPLEX Qty: 240 12RF Dose Instruction: INHALE THE CONTENTS OF ONE VIAL VIA NEBULIZER TWO TIMES A DAY Rx Instructions: INHALE THE CONTENTS OF ONE VIAL VIA NEBULIZER TWO TIMES A DAY latanoprost 0.005 % drops 1 drp ophthalmic (eye) DAILY silver sulfadiazine [Silvadene] 1 % cream 1 applic topical BID Rx Instructions: apply a 1.5 mm thickness oxycodone 10 MG tablet 10 mg PO QID PRN (Reason: Pain) tamsulosin 0.4 mg Capsule 0.4 mg PO HS albuterol sulfate 2.5 mg /3 mL (0.083 %) Solution For Nebulization 2.5 mg Inhalation Q6H PRN polyethylene glycol 3350 17 gram/dose powder 17 g PO DAILY PRN (Reason: Constipation) Patient Comments: TAKE 17G ONE CAPFUL BY MOUTH MIXED IN 8OZ OF LIQUID AND DRINK ONCE DAILY NEEDED albuterol sulfate [ProAir HFA] 90 mcg/actuation HFA aerosol inhaler 2 inh INHALATION Q4H PRN Patient Comments: INHALE TWO PUFFS BY MOUTH EVERY 4 TO 6 HOURS NEEDED gabapentin 600 mg tablet 600 mg PO QID Patient Comments: TAKE ONE TABLET BY MOUTH FOUR TIMES A DAY DIRECTED metoprolol succinate 100 mg tablet extended release 24 hr 100 mg PO DAILY Patient Comments: TAKE ONE TABLET BY MOUTH EVERY DAY ipratropium-albuterol 0.5 mg-3 mg(2.5 mg base)/3 mL solution for nebulization 3 ml INHALATION DIRECTED Treleketty Ellipta 100-62.5-25 mcg blister with device 1 inh INHALATION QAM Patient Comments: INHALE ONE PUFF BY MOUTH EVERY MORNING quetiapine 25 mg tablet 75 mg PO HS potassium chloride 10 mEq tablet extended release 10 meq PO DAILY Patient Comments: TAKE ONE TABLET BY MOUTH EVERY DAY Discontinued furosemide 40 mg tablet 40 mg PO DAILY losartan 100 mg tablet 100 mg PO DAILY Patient Comments: TAKE ONE TABLET BY MOUTH EVERY DAY Discharge Instructions Activity:: Activity as Tolerated Equipment/Supplies:: No Equipment Needed Diet:: As Tolerated Discharge Orders Discharge Orders: Discharge Order (Routine); Ordered 02/01/24 Ordered By: Tulio Hartmann DS: Summary Time Spent with Patient providing and/or coordinating discharge services: Greater than 30 minutes Status at Discharge Functional status at discharge: independent ambulation Overall status at discharge: patient is back to baseline Mental Status: mental status grossly normal Speech and Movement: speech and movement normal Mood: congruent mood Affect: normal affect Quality:SDOH Health Related Social Needs: No Data to Display Exam Narrative Exam Narrative: Chronically ill-appearing older gentleman laying in bed in no acute distress, 1 L nasal cannula, Aox4, heart regular rate rhythm, lungs diminished in bilateral bases though improved airation as compared to previous day, abdomen soft, nontender, nondistended Psych Mental Status: mental status grossly normal Speech and Movement: speech and movement normal Mood: congruent mood Affect: normal affect DS: Data Vitals/I&O Vitals and I&O: Vital Signs Temperature 98.2 F 02/01/24 08:02 Temperature Source Tympanic 01/31/24 22:51 Pulse 83 02/01/24 08:02 Pulse Rhythm Regular 02/01/24 08:20 Pulse 82 01/30/24 13:13 Respiratory Rate 20 02/01/24 08:02 Respiratory Effort Incrsd Work of Breathing 02/01/24 08:20 Respiratory Depth Normal 02/01/24 08:20 Respiratory Pattern Normal 02/01/24 08:20 Blood Pressure 104/82 02/01/24 08:02 Blood Pressure Mean 89 02/01/24 08:02 Blood Pressure Position Left Lateral 01/30/24 00:03 Pulse Oximetry 95 02/01/24 08:02 Oxygen Delivery Method Nasal Cannula 02/01/24 06:41 Oxygen Flow Rate 4 02/01/24 06:41 Fraction of Inspired Oxygen (FIO2) 35 01/28/24 23:42 Pain Level 8 01/31/24 21:41 Comment nurse notified. 01/24/24 15:35 Intake & Output 01/31/24 02/01/24 02/01/24 17:59 05:59 17:59 Intake Total 840 / 840 650 / 1490 360 / 360 Output Total 1150 / 1150 2200 / 3350 675 / 675 Balance -310 / -310 -1550 / -1860 -315 / -315 Weight 207 lb 7.28 oz Intake: IV 90 / 90 500 / 590 Oral 750 / 750 150 / 900 360 / 360 Output: Urine 1150 / 1150 2200 / 3350 675 / 675 Other: Urine Color Yellow Yellow Yellow Urine Appearance Cloudy Clear Clear Comment small strings of blood noted. aware per discussion earlier in noc Stool Size Moderate Stool Characteristics Soft Brown Data Completed and Pending Labs on day of discharge: Labs from last 24 hours 02/01/24 01/31/24 01/31/24 12:00 19:26 19:10 WBC 8.26 RBC 3.44 L Hgb 10.9 L Hct 34.1 L MCV 99 H MCH 31.7 MCHC 32.0 RDW 14.6 H Plt Count 323 MPV 9.7 Immature Gran % 0.4 Neutrophils % 64.4 Lymphocytes % 15.1 Monocytes % 11.6 Eosinophils % 7.7 Basophils % 0.8 Nucleated RBC % 0.0 Absolute Neutrophils 5.31 Absolute Lymphocytes 1.25 Absolute Monocytes 0.96 H Absolute Eosinophils 0.64 Absolute Basophils 0.07 Sodium 145 Potassium 4.6 Chloride 99 Carbon Dioxide 39.1 H Anion Gap 6.9 BUN 96 H* Creatinine Pending 3.7 H* Est GFR (CKD-EPI 2020) Pending 15.25 Glucose 158 H Calcium 9.6 Urine Color Yellow Urine Clarity Clear Urine pH 7.0 Ur Specific [place] 1.020 Urine Protein Negative Urine Ketones Negative Urine Blood Moderate H Urine Nitrite Negative Urine Bilirubin Negative Urine Urobilinogen 0.2 Ur Leukocyte Esterase Small H Urine RBC 20-50 H Urine WBC 5-10 Ur Epithelial Cells Negative Urine Crystals Negative Urine Bacteria Rare Urine Casts Negative Urine Mucus Negative Ur Culture Indicated? C&S Done As Ordered Urine Glucose Negative Random Vancomycin Pending 01/31/24 19:35 Blood Blood Culture - Pending 01/31/24 19:26 Blood Blood Culture - Pending 01/31/24 19:10 Urine - Cath Garcia Indwelling Urine Culture - Pending 01/28/24 14:00 Pleural - Right Anaerobic Culture - Pending Preliminary micro results at discharge 01/31/24 19:35 Blood Culture - Pending Blood 01/31/24 19:26 Blood Culture - Pending Blood 01/31/24 19:10 Urine Culture - Pending Urine - Cath Garcia Indwelling 01/28/24 14:00 Body Fluid Culture - Preliminary Pleural - Right 01/28/24 14:00 Anaerobic Culture - Pending Pleural - Right PFSH All Active Problems (Updated 01/31/24 @ 08:58 by Tulio Hartmann MD) Acute on chronic respiratory failure with hypoxia (Acute) DNI (do not intubate) (Acute) DNR (do not resuscitate) (Acute) Flash pulmonary edema (Acute) Acute exacerbation of CHF (congestive heart failure) (Acute) Atrial fibrillation (Chronic) Cardiorenal syndrome with renal failure (Acute) Anasarca associated with disorder of kidney (Acute) Palliative care patient (Acute) Goals of care, counseling/discussion (Acute) Discharge planning issues (Acute) DVT prophylaxis (Acute) Pleural effusion (Acute) Acute renal failure (Acute) Cardiac murmur (Acute) Essential hypertension (Acute) Anxiety (Chronic) Polyneuropathy (Acute) 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 (Acute) Right foot drop (Acute) Pain in thoracic spine (Acute) Urinary retention (Acute) Dyspnea (Acute) Neuropathic pain (Acute) Idiopathic osteoarthritis (Acute) Glaucoma (Chronic) Pleural plaque (Acute) Actinic keratosis (Acute) Disorder of lung (Acute) Steatosis, liver (Acute) Diastolic heart failure (Acute) Congestive heart failure (Chronic) Dementia (Chronic) Pain in lower limb (Acute) Insomnia (Acute) (HFpEF) heart failure with preserved ejection fraction (Acute) Restless leg syndrome (Acute) Cellulitis of lower extremity (Acute) Constipation (Acute) Decubital ulcer (Acute) Chronic anemia (Acute) 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 exposure (Acute) Respiratory failure with hypoxia (Acute) Bronchiectasis (Chronic) Nocturnal hypoxia (Acute) Dislodged Garcia catheter (Acute) Hematuria (Acute) Acute UTI (Acute) Abdominal pain (Acute) Diabetes mellitus (Chronic) BPH (benign prostatic hyperplasia) (Chronic) Essential hypertension (Acute) Lung infiltrate (Acute) UTI (urinary tract infection) (Acute) 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 Cortes [facility] [place] Total replacement of hip (~1999) Right hip, later revised in 2005 left side 2007 Rotator Cuff Repair (~1996) Right Repair of inguinal hernia (08/31/11) Right sided with orchiectomy Endoscopic Carpal Tunnel release (05/04/15) Right by Dr. Ayala Extraction of cataract (02/15/16) [place] R with IOL; and L as well, Dr. Dickinson in [place] Family History Mother , CVA at age 85. Diabetes age 50 Essential hypertension Stroke Uterine cancer Father , Colon CA at age 87. Colon cancer Sister Breast cancer Sister Ovarian cancer Sister Ovarian cancer Brother Diabetes Son No problems noted. Daughter No problems noted. Son No problems noted. Social History Smoking/Tobacco Use Status: Never Smoking risk assessment performed?: Yes Alcohol Intake: never Drug use: Never Substance use type: does not use Caregiver/Support person: Yes Household members: spouse and children Housing: house Number of Children: 3 Communication Needs: Hard of Hearing and Corrective Lenses Do you need help understanding health information?: Always Do you think of yourself as: straight/heterosexual Current gender identity: male What is your relationship status?: How often do you talk on the phone with friends or family?: three or more times per week How often do you get together with friends or relatives?: three or more times per week Panel score (0-1 are the most socially isolated patients): 2 What type of physical activity do you participate in: sedentary lifestyle Special jesus needs: No Do you feel safe at home: Yes Do you feel safe in your relationship?: Yes Additional Social history: Phoenix lives with , Shawna and their younger son, Isiah. for almost 70 years (Shanwa was 16, Phoenix was 21). Son Phoenix Jr visits every day. Lots of support. Time Spent with Patient Time Spent with Patient: <45 minutes Time was spent: preparing to see the patient(eg.review tests), obtaining and/or reviewing separately otained hiistory, ordering medications,tests, procedures, referring, communicating with other health regular senior care provider, indepentently interpreting results, counseling the patient and care coordination
[2024-02-01] MEDS: Losartan 50 MG TAB PO (11:16)
--- NOTE | 2024-02-01 11:57 | PDOC.CMDIS ---
Date of service: 02/01/24 LACE Index Scoring Tool Questions: Length of Stay (in days): 7 - 13 Was the patient admitted via the E.D.?: Yes Comorbidities: Diabetes w/o Complication and Congestive Heart Failure E.D. Visits: 0 Answers: Total Score: 11 Risk of Readmission: High Risk Care Management Discharge Plan Reason for Hospitalization: Acute renal failure Discharge Plan: Jamie will discharge to [facility] via [facility] w/c van. He will follow up with his plan of care as prescribed. Patient/Family Education Needs: Review discharge instructions and plan of care. Self care needs including Ask Me Three [facility] Health Related Social Needs: No Data to Display
[2024-02-01 12:57] LABS: CREATININE 3.5 mg/dL (0.70-1.30); Vancomycin, Random 23.4 ug/mL
== END 2024-02-01 15:00 | disposition skilled nursing facility (03) | DRG 291 ==
LOC: ER 13:36 → MS 14:52 → ICU 01-25 13:02
PROVIDERS: Family Medicine; General Practice; Nurse Practitioner Acute Care; Surgery; Admitting Provider Internal Medicine; Emergency Provider Physician Assistant; PCP Family Medicine; Visit Provider Internal Medicine
PROC: 0W993ZX Drainage of Right Pleural Cavity, Percutaneous Approach, Diagnostic (ICD-10-PCS; CPT 32554; principal; 2024-01-28 14:15)
DX: I13.0 Hypertensive heart and chronic kidney disease with heart failure and stage 1 through stage 4 chronic kidney disease, or unspecified chronic kidney disease (principal); I50.33 Acute on chronic diastolic (congestive) heart failure; J96.21 Acute and chronic respiratory failure with hypoxia; N17.0 Acute kidney failure with tubular necrosis; J90 Pleural effusion, not elsewhere classified; N30.00 Acute cystitis without hematuria; F11.23 Opioid dependence with withdrawal; I27.20 Pulmonary hypertension, unspecified; N40.1 Benign prostatic hyperplasia with lower urinary tract symptoms; R39.14 Feeling of incomplete bladder emptying; I48.0 Paroxysmal atrial fibrillation; R53.1 Weakness; F41.9 Anxiety disorder, unspecified; G62.9 Polyneuropathy, unspecified; H40.9 Unspecified glaucoma; K76.0 Fatty (change of) liver, not elsewhere classified; F03.90 Unspecified dementia, unspecified severity, without behavioral disturbance, psychotic disturbance, mood disturbance, and anxiety; G47.00 Insomnia, unspecified; G25.81 Restless legs syndrome; K59.00 Constipation, unspecified; D64.9 Anemia, unspecified; J47.9 Bronchiectasis, uncomplicated; J45.909 Unspecified asthma, uncomplicated; E66.9 Obesity, unspecified; K21.9 Gastro-esophageal reflux disease without esophagitis; M48.00 Spinal stenosis, site unspecified; Z96.643 Presence of artificial hip joint, bilateral; I35.8 Other nonrheumatic aortic valve disorders; Z68.30 Body mass index [BMI] 30.0-30.9, adult; B96.89 Other specified bacterial agents as the cause of diseases classified elsewhere; N18.9 Chronic kidney disease, unspecified; T40.2X5A Adverse effect of other opioids, initial encounter; Z66 Do not resuscitate
CPT/HCPCS: 32555; 51703; 00123; 36415; 71250; 73562; 76604; 76770; 80048; 80053; 80076; 82550; 82805; 83690; 84145; 85027; 85652; 87040; 87077; 87637; 93005; 93306; 93308; 94640; 96360; 97110; 97162; 97163; 97530; 99222; 99231; 99285; 71045; 74176; 80202; 81003; 81015; 81373; 82565; 83605; 83615; 83735; 83880; 84157; 84484; 85025; 85379; 86140; 87070; 87075; 87086; 87186; 87205; 88104; 89051; 93010; 93970; 94660; 94664; 94760; 99232; 99233; 99238; 99291; J0692; J0696; J1205; J1644; J1940; J2212; J2270; J3372; J7613; J7620; P9047

== ENCOUNTER → 2024-01-22 08:18 | Outpatient (BNVA) | payer MEDICARE, SELFPAY | PROVIDERS: PCP Family Medicine; Referring Provider Family Medicine; Visit Provider Urology ==

== ENCOUNTER 2024-07-10 00:30 | Emergency (ER) | payer MEDICARE, SELFPAY ==
[2024-07-10] VITALS (134 sets, daily range): BP systolic 81–130; BP diastolic 38–87; PULSE 57–76; RESP 13–25; O2SAT 91–100
--- NOTE | 2024-07-10 00:15 | RT.EKG_ITS ---
APPROVED REPORT Exam: Resting ECG Reason for Exam: chest pain, sob Patient Location: E HR:75 bpm ECG Measurements Heart Rate 75 AXIS WV [id number] P [id number] QRSd 168 QRS 170 QT 510 T 21 QTc 571 Conclusion RBBB and LPFB...QRSd >120mS, axis(90,210) baseline artifact limits further interpretation
--- NOTE | 2024-07-10 00:15 | DI.RAD_ITS ---
Exam(s) XR PORTABLE CHEST AP EXAM: XR PORTABLE CHEST AP CLINICAL HISTORY: sepsis TECHNIQUE: 2D digital imaging was performed. COMPARISON: No exams were available for comparison FINDINGS: Exam is limited by poor pulmonary inflation and under penetration as well as overlying monitoring le ads and oxygen tubing. LUNGS: Increased density at the lung bases, right greater than left. Small right pleural effusion. HEART: Enlarged. AORTA: Normal diameter. BONES: Severe degenerative changes of both shoulders. Soft tissues: Unremarkable. IMPRESSION: severely limited exam. Increased densities at the lung bases, right greater than left. Infiltrates versus atelectasis. Small right pleural effusion DATA REPOSITORY: RADIATION DOSE DELIVERED:
--- NOTE | 2024-07-10 00:34 | ED.GENADUL_ITS ---
Discharge Plan Discharge Details Chief Complaint: Fever Primary Care Provider: Yvonne Solorio ED Provider: Ami Vogel Home Meds and New Rx's Prescriptions: No Action Linzess 290 mcg capsule 290 mcg PO DAILY PRN acetaminophen 500 MG tablet 1,000 mg PO Q4H PRN Patient Comments: Not on medication list naloxone [Narcan] 4 MG spray,non-aerosol 4 mg NS as directed 1 Days Qty: 2 0RF Rx Instructions: instill 1 spray into 1 nostril for opioid overdose-may repeat once in opposite nostril if no response sodium chloride 7 % solution for nebulization See Rx Instructions .ROUTE .COMPLEX Qty: 240 12RF Dose Instruction: INHALE THE CONTENTS OF ONE VIAL VIA NEBULIZER TWO TIMES A DAY Rx Instructions: INHALE THE CONTENTS OF ONE VIAL VIA NEBULIZER TWO TIMES A DAY latanoprost 0.005 % drops 1 drp ophthalmic (eye) DAILY silver sulfadiazine [Silvadene] 1 % cream 1 applic topical BID Rx Instructions: apply a 1.5 mm thickness oxycodone 10 MG tablet 10 mg PO QID PRN (Reason: Pain) tamsulosin 0.4 mg Capsule 0.4 mg PO HS albuterol sulfate 2.5 mg /3 mL (0.083 %) Solution For Nebulization 2.5 mg Inhalation Q6H PRN polyethylene glycol 3350 17 gram/dose powder 17 g PO DAILY PRN (Reason: Constipation) Patient Comments: TAKE 17G ONE CAPFUL BY MOUTH MIXED IN 8OZ OF LIQUID AND DRINK ONCE DAILY NEEDED albuterol sulfate [ProAir HFA] 90 mcg/actuation HFA aerosol inhaler 2 inh INHALATION Q4H PRN Patient Comments: INHALE TWO PUFFS BY MOUTH EVERY 4 TO 6 HOURS NEEDED gabapentin 600 mg tablet 600 mg PO QID Patient Comments: TAKE ONE TABLET BY MOUTH FOUR TIMES A DAY DIRECTED metoprolol succinate 100 mg tablet extended release 24 hr 100 mg PO DAILY Patient Comments: TAKE ONE TABLET BY MOUTH EVERY DAY ipratropium-albuterol 0.5 mg-3 mg(2.5 mg base)/3 mL solution for nebulization 3 ml INHALATION DIRECTED Trelegy Ellipta 100-62.5-25 mcg blister with device 1 inh INHALATION QAM Patient Comments: INHALE ONE PUFF BY MOUTH EVERY MORNING quetiapine 25 mg tablet 75 mg PO HS potassium chloride 10 mEq tablet extended release 10 meq PO DAILY Patient Comments: TAKE ONE TABLET BY MOUTH EVERY DAY midodrine 2.5 mg Tablet 2.5 mg PO TID Qty: 90 0RF cefpodoxime 200 mg tablet 200 mg PO BID Qty: 14 0RF Rx Instructions: must administer with a meal/food losartan 50 mg tablet 50 mg PO DAILY Qty: 90 0RF furosemide [Lasix] 40 mg tablet 60 mg PO BID Qty: 90 0RF HPI General Mode of arrival: EMS . Date/Time Provider Initiated Documentation: 07/10/24 00:34 . Information obtained by: patient, EMS and old records reviewed . HPI Narrative: 89yo M with hx UTIs, HTN, RAD, pulmonary hypertension, afib, presenting for respiratory distress. Per EMS, patient with upper abdominal after eating dinner tonight, recent treatment for UTI, otherwise in his usual state of health. EMS was called after he was unresponsive; on their arrival he was febrile to 102.1F, unresponsive, RR 34, SpO02 high 70's low 80's. Improved to 90's on 15L NRB. BGL in 100's. Mental status improved during transport, pt able to follow commands. Denies pain currently including chest pain or abdominal pain, does feel short of breath. Confirms DNR/DNI. Related Data Home Medications ?Medication ?Instructions ?Recorded ?Confirmed acetaminophen 500 mg tablet 1,000 mg PO Q4H PRN 07/09/15 07/10/24 naloxone 4 mg/actuation nasal 4 mg NS as directed 1 day #2 sprays 01/23/18 07/10/24 spray (Narcan) oxycodone 10 mg tablet 10 mg PO QID PRN Pain 06/13/18 07/10/24 albuterol sulfate 2.5 mg/3 mL 2.5 mg inhalation Q6H PRN 04/21/19 07/10/24 (0.083 %) solution for nebulization tamsulosin 0.4 mg capsule 0.4 mg PO HS 04/21/19 07/10/24 linaclotide 290 mcg capsule 290 mcg PO DAILY PRN 05/22/19 07/10/24 (Linzess) fluticasone fur. 100 mcg-umeclid 1 inh inhalation QAM 02/24/21 07/10/24 62.5 mcg-vilant 25 mcg inhalat.powder (Trelegy Ellipta) albuterol sulfate 90 mcg/actuation 2 inh inhalation Q4H PRN 03/02/21 07/10/24 aerosol inhaler (ProAir HFA) polyethylene glycol 3350 17 17 g PO DAILY PRN Constipation 03/02/21 07/10/24 gram/dose oral powder gabapentin 600 mg tablet 600 mg PO QID 05/03/23 07/10/24 quetiapine 25 mg tablet 75 mg PO HS 08/03/23 07/10/24 metoprolol succinate 100 mg 100 mg PO DAILY 10/05/23 07/10/24 tablet,extended release 24 hr latanoprost 0.005 % eye drops 1 drp ophthalmic (eye) DAILY 11/21/23 07/10/24 furosemide 40 mg tablet (Lasix) 60 mg (1.5 x 40 mg) PO BID #90 tabs 02/01/24 07/10/24 losartan 50 mg tablet 50 mg PO DAILY #90 tabs 02/01/24 Previous Rx's ?Medication ?Instructions ?Recorded naloxone 4 mg/actuation nasal 4 mg NS as directed 1 day #2 sprays 01/23/18 spray (Narcan) furosemide 40 mg tablet (Lasix) 60 mg (1.5 x 40 mg) PO BID #90 tabs 02/01/24 losartan 50 mg tablet 50 mg PO DAILY #90 tabs 02/01/24 Allergies Allergy/AdvReac Type Severity Reaction Status Date / Time diclofenac Allergy Mild Other (See Verified 01/21/24 10:25 Comment) aspirin AdvReac Intermediate GI Bleeding Verified 01/21/24 10:25 NSAIDS (Non-Steroidal AdvReac Intermediate GI Bleeding Verified 01/21/24 10:25 Anti-Inflamma General Stated Complaint: Fever DIAZ: 1 Review of Systems Narrative: see HPI Exam Narrative Exam Narrative: General: Alert, dyspneic Head: Normocephalic, atraumatic Neck: Trachea midline, ?Neck supple. ENT: ?MMM.? Cardiac: ?RRR, no murmurs appreciated Resp: Increased WOB. Diminished breath sounds in basis. Abd: ?Soft, non-distended, nontender. No RUQ tenderness. Negative jain's. : ?No suprapubic tenderness. No CVA tenderness. Extremities: ?No deformities.? No peripheral edema. Neurologic: GCS 15. ? Moves all extremities freely against gravity Course Vital Signs Vital signs: Pain Level 0 07/10/24 00:32 Lab/Test Results Lab/Test Results: 07/10/24 00:23 Blood Blood Culture - Pending 07/10/24 00:23 Blood Blood Culture - Pending Medical Decision Making 89yo M with hx UTIs, HTN, RAD, pulmonary hypertension, afib, presenting for respiratory distress. Per EMS, patient with upper abdominal after eating dinner tonight, recent treatment for UTI, otherwise in his usual state of health. EMS was called after he was unresponsive; on their arrival he was febrile to 102.1F, unresponsive, RR 34, SpO02 high 70's low 80's. Improved to 90's on 15L NRB. BGL in 100's. Mental status improved during transport, pt able to follow commands. Denies pain currently including chest pain or abdominal pain, does feel short of breath. Confirms DNR/DNI. -Tachypenic with increased WOB on arrival, O2 sat 95% on 15L NRB, GCS 15. Vital signs otherwise reassuring. Placed on BiPAP with immediate improvement in respiratory effort. No abdominal tenderness on exam. Presumed sepsis, fluid resus and broad spectrum abx ordered. -Initial EKG unintelligible 2/t baseline artifact; repeat with rate in 70's (junctional vs afb) and IVD present on prior EKGs, appropriate intervals, no ST segment or T wave abnormalities to suggest occlusive ND. -Labs reviewed as below, CBC with leukocytosis to 15 and Hg at baseline, CMP with mildly elevated Cr at 1.5 and no actionable electrolyte abnormalities. ALP mildly elevated at 195, LFTs otherwise normal. VBG reassuring with normal pH and no CO2 retention. Initial troponins 32, 20, not suggestive of acute coronary syndrome. Will get 3 hour trop. BNP elevated at 13,000 which does not appear atypical for patient on [facility] record review. Regrettably initial lactate not drawn; procal reassuring at 0.1. Lactate after fluids 1.6. UA not suggestive of infection. Respiratory viral swab negative. -CXR on arrival independently reviewed with pneumonia, pleural effusions; no overt pulmonary edema on my view. Patient no floridly volume overloaded, favor pneumonia vs heart failure as etiology of respiratory status. -CT independently reviewed, consistent with pneumonia on my view, no bowel obstruction or free fluid in abd/pelvis. Radiology read below with concern for GB wall thickening; pt did report abdominal pain after eating this evening but has no RUQ tenderness and negative Jain's on my exam with reassuring LFTs. Unlikely to be cholecystitis AND pneumonia. Will trend CMP, consider US when available. On reassessment pt with mild hypotension while sleeping; does improve to MAP >65 when awakened. Will start peripheral norepinephrine, anticipate good response to low dose 2-5mcg. No beds available at [facility]; [facility] [place] [facility] contacted for potential transfer (possibly to [place]). Planned EMR downtime approaching; further charting will be in paper record. Imaging Data Radiologic Study: Imaging: X-Ray and CT Scan Radiologist's impression: CXR: IMPRESSION: 1. Bilateral pulmonary opacities most consistent with pneumonia. 2. Right pleural effusion. 3. Enlarged cardiac. CT chest/abd/pelvis: IMPRESSION: 1. Multifocal consolidation in the lungs most consistent with pneumonia. There is likely a component of atelectasis as well. 2. Bilateral pleural effusions. 3. Mediastinal lymphadenopathy. 4. Additional studies dictated separately. IMPRESSION: 1. Study limitations as above. 2. Rectal thickening, poorly evaluated due to artifact but proctitis and neoplasm should be considered. 3. Mild prominence of the gallbladder wall. This is of indeterminate significance. Right upper quadrant ultrasound may be considered if cholecystitis is of clinical concern. 4. Additional findings as above. 5. Additional studies dictated separately. Lab Data Lab results reviewed: Yes I reviewed the patient's lab results. Labs: 07/10/24 01:00 Blood Blood Culture - Pending 07/10/24 00:50 Blood Blood Culture - Pending 07/10/24 00:50 Urine - Cath Garcia Indwelling Urine Culture - Pending Laboratory Tests Range/Units 07/10/24 07/10/24 07/10/24 00:50 00:55 01:50 WBC (4.4-10.8) 10^3/uL 15.21 H RBC (4.36-5.78) 10^6/uL 3.45 L Hgb (13.5-17.5) g/dL 10.9 L Hct (40.0-50.0) % 33.1 L MCV (80-95) fL 96 H MCH (27.0-33.0) pg 31.6 MCHC (32.0-36.0) % 32.9 RDW (11.8-14.1) % 14.8 H Plt Count (130-400) 10^3/uL 314 MPV (8.0-11.0) fL 10.5 Immature Gran % % 0.0 Neutrophils % % 80.0 Lymphocytes % % 8.0 Monocytes % % 12.0 Eosinophils % % 0.0 Basophils % % 0.0 Nucleated RBC % (0.0-0.3) % 0.0 Absolute Neutrophils (1.2-6.7) 10^3/uL 12.17 H Absolute Lymphocytes (1.2-3.4) 10^3/uL 1.22 Absolute Monocytes (0.1-0.8) 10^3/uL 1.83 H Absolute Eosinophils (0.0-0.7) 10^3/uL 0.00 Absolute Basophils (0.0-0.2) 10^3/uL 0.00 RBC Morphology Normal PT (9.1-11.1) sec 11.1 INR (0.9-1.1) 1.1 APTT (23.6-32.8) sec 28.3 VBG pH (7.31-7.41) 7.41 VBG pCO2 (41-51) mmHg 49 VBG pO2 mmHg 46 VBG HCO3 (23-28) mmol/L 31 H VBG Total CO2 (24-29) mmol/L 28 VBG O2 Saturation % 78 VBG Base Excess (-2-3) mmol/L 6 H VBG Lactate (0.6-1.4) mmol/L Sodium (136-145) mmol/L 140 Potassium (3.5-5.1) mmol/L 4.0 Chloride (98-107) mmol/L 101 Carbon Dioxide (21.0-32.0) mmol/L 30.8 Anion Gap (3-11) mmol/L 8.2 BUN (7-18) mg/dL 41 H Creatinine (0.70-1.30) mg/dL 1.5 H Est GFR (CKD-EPI 2020) (mL/min/1.73m2) 44.78 Glucose (74-106) mg/dL 131 H Calcium (8.5-10.1) mg/dL 9.4 Total Bilirubin (0.2-1.0) mg/dL 0.76 AST (15-37) U/L 35 ALT (16-63) U/L 25 Alkaline Phosphatase (46-116) U/L 195 H Troponin I (<or=76) ng/L 32 30 NT-Pro-B Natriuret Pep (<300) pg/mL 42562 H Total Protein (6.4-8.2) g/dL 8.2 Albumin (3.4-5.0) g/dL 3.7 Procalcitonin ng/mL < 0.1 Urine Color (Yellow) Yellow Urine Clarity (Clear) Clear Urine pH (5-8) 5.5 Ur Specific [place] (1.005-1.025) 1.015 Urine Protein (Neg-Trace) mg/dL Negative Urine Ketones (Negative) mg/dL Negative Urine Blood (Negative) Negative Urine Nitrite (Negative) Negative Urine Bilirubin (Negative) Negative Urine Urobilinogen (Up to 0.2) mg/dL 0.2 Ur Leukocyte Esterase (Negative) Negative Urine Glucose (Negative) mg/dL Negative COVID-19 Source Nasopharynx SARS-CoV-2 (PCR) (Negative) Negative Influenza Type A (PCR) (Negative) Negative Influenza Type B (PCR) (Negative) Negative RSV (PCR) (Negative) Negative Range/Units 07/10/24 04:13 WBC (4.4-10.8) 10^3/uL RBC (4.36-5.78) 10^6/uL Hgb (13.5-17.5) g/dL Hct (40.0-50.0) % MCV (80-95) fL MCH (27.0-33.0) pg MCHC (32.0-36.0) % RDW (11.8-14.1) % Plt Count (130-400) 10^3/uL MPV (8.0-11.0) fL Immature Gran % % Neutrophils % % Lymphocytes % % Monocytes % % Eosinophils % % Basophils % % Nucleated RBC % (0.0-0.3) % Absolute Neutrophils (1.2-6.7) 10^3/uL Absolute Lymphocytes (1.2-3.4) 10^3/uL Absolute Monocytes (0.1-0.8) 10^3/uL Absolute Eosinophils (0.0-0.7) 10^3/uL Absolute Basophils (0.0-0.2) 10^3/uL RBC Morphology PT (9.1-11.1) sec INR (0.9-1.1) APTT (23.6-32.8) sec VBG pH (7.31-7.41) VBG pCO2 (41-51) mmHg VBG pO2 mmHg VBG HCO3 (23-28) mmol/L VBG Total CO2 (24-29) mmol/L VBG O2 Saturation % VBG Base Excess (-2-3) mmol/L VBG Lactate (0.6-1.4) mmol/L 1.6 H Sodium (136-145) mmol/L Potassium (3.5-5.1) mmol/L Chloride (98-107) mmol/L Carbon Dioxide (21.0-32.0) mmol/L Anion Gap (3-11) mmol/L BUN (7-18) mg/dL Creatinine (0.70-1.30) mg/dL Est GFR (CKD-EPI 2020) (mL/min/1.73m2) Glucose (74-106) mg/dL Calcium (8.5-10.1) mg/dL Total Bilirubin (0.2-1.0) mg/dL AST (15-37) U/L ALT (16-63) U/L Alkaline Phosphatase (46-116) U/L Troponin I (<or=76) ng/L NT-Pro-B Natriuret Pep (<300) pg/mL Total Protein (6.4-8.2) g/dL Albumin (3.4-5.0) g/dL Procalcitonin ng/mL Urine Color (Yellow) Urine Clarity (Clear) Urine pH (5-8) Ur Specific [place] (1.005-1.025) Urine Protein (Neg-Trace) mg/dL Urine Ketones (Negative) mg/dL Urine Blood (Negative) Urine Nitrite (Negative) Urine Bilirubin (Negative) Urine Urobilinogen (Up to 0.2) mg/dL Ur Leukocyte Esterase (Negative) Urine Glucose (Negative) mg/dL COVID-19 Source SARS-CoV-2 (PCR) (Negative) Influenza Type A (PCR) (Negative) Influenza Type B (PCR) (Negative) RSV (PCR) (Negative) Quality:SDOH Health Related Social Needs: No Data to Display Critical Care Time Critical Care Time Critical Care Time: Yes Total Critical Care Time: 31 Attestation: Due to a high probability of clinically significant, life threatening deterioration, the patient required my highest level of preparedness to intervene emergently and I personally spent this critical care time directly and personally managing the patient. This critical care time included obtaining a history; examining the patient; pulse oximetry; ordering and review of studies; arranging urgent treatment with development of a ma nagement plan; evaluation of patient's response to treatment; frequent reassessment; and, discussions with other providers. This critical care time was performed to assess and manage the high probabi lity of imminent, life-threatening deterioration that could result in multi- organ failure. It was exclusive of separately billable procedures? PFSH All Active Problems (Updated 02/02/24 @ 00:01 by SURINDER FISCHER) DNI (do not intubate) (Acute) DNR (do not resuscitate) (Acute) Atrial fibrillation (Chronic) Pleural effusion (Acute) Acute renal failure (Acute) Cardiac murmur (Acute) Essential hypertension (Acute) Anxiety (Chronic) Polyneuropathy (Acute) 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 (Acute) Right foot drop (Acute) Pain in thoracic spine (Acute) Urinary retention (Acute) Dyspnea (Acute) Neuropathic pain (Acute) Idiopathic osteoarthritis (Acute) Glaucoma (Chronic) Pleural plaque (Acute) Actinic keratosis (Acute) Disorder of lung (Acute) Steatosis, liver (Acute) Diastolic heart failure (Acute) Congestive heart failure (Chronic) Dementia (Chronic) Pain in lower limb (Acute) Insomnia (Acute) (HFpEF) heart failure with preserved ejection fraction (Acute) Restless leg syndrome (Acute) Cellulitis of lower extremity (Acute) Constipation (Acute) Decubital ulcer (Acute) Chronic anemia (Acute) 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 exposure (Acute) Respiratory failure with hypoxia (Acute) Bronchiectasis (Chronic) Nocturnal hypoxia (Acute) Dislodged Garcia catheter (Acute) Hematuria (Acute) Acute UTI (Acute) Abdominal pain (Acute) Diabetes mellitus (Chronic) BPH (benign prostatic hyperplasia) (Chronic) Essential hypertension (Acute) Lung infiltrate (Acute) UTI (urinary tract infection) (Acute) 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 Cortes [facility] [place] [facility] Total replacement of hip (~1999) Right hip, later revised in 2005 left side 2006 Rotator Cuff Repair (~1996) Right Repair of inguinal hernia (08/31/11) Right sided with orchiectomy Endoscopic Carpal Tunnel release (05/04/15) Right by Dr. Ayala Extraction of cataract (02/15/16) [place] R with IOL; and L as well, Dr. Dickinson in [place] Family History Mother , CVA at age 85. Diabetes age 50 Essential hypertension Stroke Uterine cancer Father , Colon CA at age 87. Colon cancer Sister Breast cancer Sister Ovarian cancer Sister Ovarian cancer Brother Diabetes Son No problems noted. Daughter No problems noted. Son No problems noted. Social History Smoking/Tobacco Use Status: Never Smoking risk assessment performed?: Yes Alcohol Intake: never Drug use: Never Substance use type: does not use Caregiver/Support person: Yes Household members: spouse and children Housing: house Number of Children: 3 Communication Needs: Hard of Hearing and Corrective Lenses Do you need help understanding health information?: Always Do you think of yourself as: straight/heterosexual Current gender identity: male What is your relationship status?: How often do you talk on the phone with friends or family?: three or more times per week How often do you get together with friends or relatives?: three or more times per week Panel score (0-1 are the most socially isolated patients): 2 What type of physical activity do you participate in: sedentary lifestyle Special jesus needs: No Do you feel safe at home: Yes Do you feel safe in your relationship?: Yes Additional Social history: [place] lives with , Shawna and their younger son, Isiah. for almost 70 years (Shawna was 16, Phoenix was 21). Son Phoenix Sims visits every day. Lots of support.
[2024-07-10 00:56] LABS: BE (Venous) 6 mmol/L (-2-3); HCO3 (Venous) 31 mmol/L (23-28); O2 Sat (Venous) 78 %; TCO2 (Venous) 28 mmol/L (24-29); pCO2 (Venous) 49 mmHg (41-51); pH (Venous) 7.41 (7.31-7.41); pO2 (Venous) 46 mmHg
[2024-07-10 00:57] LABS: Abs Immature Grans 0.08 10^3/uL (0.0-0.06); HCT 33.1 % (40.0-50.0); HGB 10.9 g/dL (13.5-17.5); MCH 31.6 pg (27.0-33.0); MCHC 32.9 % (32.0-36.0); MCV 96 fL (80-95); MPV 10.5 fL (8.0-11.0); Platelet Count 314 10^3/uL (130-400); RBC 3.45 10^6/uL (4.36-5.78); RDW 14.8 % (11.8-14.1); RDW-SD 51.5 fL; WBC 15.21 10^3/uL (4.4-10.8)
[2024-07-10 01:04] LABS: Bilirubin Negative (Negative); Blood Negative (Negative); Clarity Clear (Clear); Glucose Negative (Negative); Ketones Negative (Negative); Leukocyte Esterase Negative (Negative); Nitrite Negative (Negative); Specific Gravity 1.015 (1.005-1.025); Urobilinogen 0.2 mg/dL (Up to 0.2); pH 5.5 (5-8)
[2024-07-10 01:10] LABS: INR 1.1 (0.9-1.1); PTT Activated 28.3 sec (23.6-32.8); Prothrombin Time 11.1 sec (9.1-11.1)
[2024-07-10 01:23] LABS: ALT 25 U/L (16-63); AST 35 U/L (15-37); Albumin 3.7 g/dL (3.4-5.0); Alkaline Phosphatase 195 U/L (46-116); Anion Gap 8.2 mmol/L (3-11); BUN 41 mg/dL (7-18); Bilirubin, Total 0.76 mg/dL (0.2-1.0); CO2 30.8 mmol/L (21.0-32.0); CREATININE 1.5 mg/dL (0.70-1.30); Calcium 9.4 mg/dL (8.5-10.1); Chloride 101 mmol/L (98-107); Estimated GFR 44.78 (mL/min/1.73m2); Glucose 131 mg/dL (74-106); Sodium 140 mmol/L (136-145); Total Protein 8.2 g/dL (6.4-8.2); Troponin I 32 ng/L (<or=76)
[2024-07-10 01:30] LABS: Absolute Lymphocyte Count 1.22 10^3/uL (1.2-3.4); Absolute Monocyte Count 1.83 10^3/uL (0.1-0.8); Absolute Neutrophil Count 12.17 10^3/uL (1.2-6.7)
--- NOTE | 2024-07-10 01:30 | DI.CT_ITS ---
Exam(s) CT CHEST/ABD/PEL W EXAM: CT CHEST/ABD/PEL W CLINICAL HISTORY: sepsis, abdominal pain. TECHNIQUE: Imaging Protocol: Axial computed tomography images with coronal and sagittal reformatted images were created and reviewed CONTRAST MATERIAL: Intravenous: Omnipaque 350 Contrast volume:100 ml Oral: yes / no COMPARISON: CT CT CHEST/ABD/PEL WO from 01/27/2024 FINDINGS: CHEST: Exam limited by respiratory motion. Tracheobronchial tree: Patent. Pulmonary parenchyma: Significant bilateral lower lobe atelectasis versus pneumonia, right greater th an left. Interstitial thickening and ground-glass opacities present in right upper lobe.. Pleura: Moderate right and small left pleural effusion. Decrease in size from prior exam. No pneumo thorax. Mediastinum: Enlarged mediastinal lymph nodes again noted. Aorta: Thoracic portion non-dilated. Pulmonary arteries: No visible emboli. Heart: No pericardial effusion. Mildly enlarged. Coronary artery calcifications. Bones: Unremarkable for age. No lytic or blastic lesions.No compression fractures. Soft tissues: Unremarkable. ABDOMEN and PELVIS: Exam limited by streak artifact from patient's arm position. Streak artifact in pelvis secondary to b ilateral hip prostheses. Liver: Mildly heterogeneous enhancement. Mild periportal edema. Cyst again noted. No suspicious measu rable mass. Gallbladder and biliary tract: Somewhat distended. Mild wall thickening. No visible stones. No biliar y dilatation. Pancreas: Somewhat atrophic. No abnormal calcifications or inflammatory process. Spleen: Normal. Kidneys: Normal size, contour and axis. No radiodense stones. No obstructive uropathy. Stable tiny r enal cysts. No follow-up recommended. No suspicious masses seen. Adrenal glands: No masses seen. Aorta: Abdominal portion non-dilated. Lymph nodes: Within normal limits. Soft tissues: Unremarkable. Bladder: Garcia catheter noted. Area of bladder obscured by artifact. Bowel: No obstruction or bowel wall thickening. Bowel in low pelvis obscured by artifact. Peritoneal cavity: Trace amount of fluid around liver. No focal collection. No mesenteric inflammato ry response. No free air. Metallic clips in midline of upper abdomen. Bones: Postsurgical and degenerative changes. Reproductive organs: Area of prostate obscured by artifact. IMPRESSION: Bilateral pleural effusions and adjacent atelectasis/pneumonia. Right upper lobe ground-glass opaciti es. Enlarged mediastinal lymph nodes which could be reactive. Distention and wall thickening of the gallbladder. No biliary dilatation. Consider further evaluation with ultrasound. Trace amount of fluid around liver. RADIATION DOSE DELIVERED: 1,159.84mGy.cm Total DLP DATA REPOSITORY: All CT scans at this facility are submitted to the National Radiology Data Registry (NRDR) Dose Index Registry (DIR) with the [employer] ([employer]). RADIATION OPTIMIZATION: All CT scans at this facility use at least one of these dose optimization te chniques: automated exposure control; mA and/or kV adjustment per patient size (includes targeted exa ms where dose is matched to clinical indication); or iterative reconstruction. [email or web address]
[2024-07-10 01:31] LABS: Diff Comment Manual Differential; RBC Morphology Normal
[2024-07-10] MEDS: Lactated Ringers 1,000 ML 2000 ML IV ×2 (01:33→02:54)
[2024-07-10 01:34] LABS: Procalcitonin < 0.1 ng/mL
[2024-07-10] MEDS: PIPERACILLIN/TAZO 3.375 GM in Normal Saline 100 ML IVPB (01:34)
[2024-07-10 02:14] LABS: Troponin I 30 ng/L (<or=76)
[2024-07-10 02:17] LABS: NT-proBNP 13763 pg/mL (<300)
[2024-07-10] MEDS: Normal Saline - Diluent 50 ML VIAL IJ (02:18)
[2024-07-10] MEDS: Omnipaque 350 MG/ML 100 ML BTL IJ (02:19)
[2024-07-10] MEDS: LINEZOLID 600 MG/300 ML BAG 300 MG IVPB (02:48)
[2024-07-10] MEDS: Normal Saline 1,000 ML 1000 ML IV (02:48)
[2024-07-10 02:52] LABS: COVID-19 PCR Negative (Negative); Influenza A PCR Negative (Negative); Influenza B PCR Negative (Negative); RSV PCR Negative (Negative); Source Nasopharynx
--- NOTE | 2024-07-10 02:58 | DI.VRAD_ITS ---
PROCEDURE INFORMATION: Exam: CT Chest With Contrast; Diagnostic Exam date and time: 07/10/2024 2:16 AM Age: 89 years old Clinical indication: Other: Sepsis, abdominal pain TECHNIQUE: Imaging protocol: Diagnostic computed tomography of the chest with contrast. 3D rendering (Not supervised by radiologist): MIP and/or 3D reconstructed images were created by the technologist. Contrast material: 350; Contrast volume: 100 ml; Contrast route: INTRAVENOUS (IV); COMPARISON: CT CHEST/ABD/PEL WO 01/27/2024 11:31 AM FINDINGS: Limitations: Images degraded due to artifact caused by patient motion, arm positioning, and metallic hardware. Lungs: Interstitial thickening and ground-glass opacities in the right upper lobe. Multifocal consolidation in the right middle and bilateral lower lobes. Pleural spaces: Small left and moderate right pleural effusion. Bilateral pleural calcifications. Heart: No pericardial effusion. Coronary arteries: Coronary artery calcifications. Lymph nodes: Mediastinal lymphadenopathy. Vasculature: No thoracic aortic aneurysm. Bones/joints: No acute pertinent abnormality appreciated. Soft tissues: No acute pertinent abnormality appreciated. Other findings: CT scan of the abdomen pelvis dictated separately. IMPRESSION: 1. Multifocal consolidation in the lungs most consistent with pneumonia. There is likely a component of atelectasis as well. 2. Bilateral pleural effusions. 3. Mediastinal lymphadenopathy. 4. Additional studies dictated separately. PROCEDURE INFORMATION: Exam: CT Abdomen And Pelvis With Contrast Exam date and time: 07/10/2024 2:16 AM Age: 89 years old Clinical indication: Other: Sepsis, abdominal pain TECHNIQUE: Imaging protocol: Computed tomography of the abdomen and pelvis with contrast. 3D rendering (Not supervised by radiologist): MIP and/or 3D reconstructed images were created by the technologist. Contrast material: 350; Contrast volume: 100 ml; Contrast route: INTRAVENOUS (IV); COMPARISON: CT CHEST/ABD/PEL WO 01/27/2024 11:31 AM FINDINGS: Limitations: Images degraded due to artifact caused by patient motion, arm positioning, metallic hardware. Lungs: CT scan of the chest dictated separately. Liver: Heterogeneous enhancement of the liver. 1.5 cm hypodensity in the right hepatic lobe, indeterminate on this examination. Periportal edema. Gallbladder and biliary ducts: Distended gallbladder with mild mural prominence. Pancreas: Fatty infiltration of the pancreas. Spleen: No splenomegaly. Adrenal glands: Nodular adrenal thickening. Kidneys and ureters: Hypodense lesion in the right kidney, statistically likely to represent a cyst but indeterminate on this examination. Cannot exclude hyperdense cyst or solid lesion. Consider nonemergent followup. No hydronephrosis. Stomach and bowel: No intestinal obstruction is evident. Retained fecal material is present in the colon. The rectum appears thickened but is poorly evaluated due to artifact. Appendix: No evidence of appendicitis. Intraperitoneal space: No free air. Vasculature: Atherosclerotic changes in the aorta and its branches. Lymph nodes: Nonspecific mesenteric and retroperitoneal lymph nodes. Urinary bladder: Garcia catheter in the urinary bladder. The bladder is obscured by artifact and not well evaluated. Reproductive: Enlarged prostate. Bones/joints: Bilateral hip prostheses. Artifact limits evaluation of the surrounding tissues. Multilevel spinal fusion and posterior decompression. Soft tissues: No pertinent acute abnormality seen. IMPRESSION: 1. Study limitations as above. 2. Rectal thickening, poorly evaluated due to artifact but proctitis and neoplasm should be considered. 3. Mild prominence of the gallbladder wall. This is of indeterminate significance. Right upper quadrant ultrasound may be considered if cholecystitis is of clinical concern. 4. Additional findings as above. 5. Additional studies dictated separately. Dictated and Authenticated by: Karla Castillo MD. Ordering:ARNULFO Mueller MD
--- NOTE | 2024-07-10 03:01 | DI.VRAD_ITS ---
PROCEDURE INFORMATION: Exam: XR Chest Exam date and time: 07/10/2024 1:16 AM Age: 89 years old Clinical indication: Other: Sepsis TECHNIQUE: Imaging protocol: Radiologic exam of the chest. Views: 1 view. COMPARISON: CR XR PORTABLE CHEST AP 02/01/2024 9:36 AM FINDINGS: Lungs: Low lung volumes. Opacity in the right mid to lower lung and left lung base. Pleural spaces: Right pleural effusion. Heart/Mediastinum: Enlarged cardiac silhouette. Bones/joints: No acute abnormality. IMPRESSION: 1. Bilateral pulmonary opacities most consistent with pneumonia. 2. Right pleural effusion. 3. Enlarged cardiac. Dictated and Authenticated by: Karla Castillo MD. Ordering:ARNULFO Mueller MD
[2024-07-10 04:15] LABS: Lactate 1.6 mmol/L (0.6-1.4)
[2024-07-10] MEDS: Norepinephrine in D5W 8 MG/250 ML BAG 3.7 MG IV (04:28)
[2024-07-10 04:36] LABS: Troponin I 40 ng/L (<or=76)
[2024-07-10 04:46] LABS: BUN 37 mg/dL (7-18); CREATININE 1.4 mg/dL (0.70-1.30); Calcium 8.1 mg/dL (8.5-10.1); Estimated GFR 48.65 (mL/min/1.73m2); Glucose 139 mg/dL (74-106); Total Protein 6.6 g/dL (6.4-8.2)
[2024-07-10 04:47] LABS: ALT 24 U/L (16-63); AST 22 U/L (15-37); Albumin 2.9 g/dL (3.4-5.0); Alkaline Phosphatase 153 U/L (46-116); Anion Gap 6.4 mmol/L (3-11); Bilirubin, Total 0.75 mg/dL (0.2-1.0); CO2 30.6 mmol/L (21.0-32.0); Chloride 102 mmol/L (98-107); Potassium 3.9 mmol/L (3.5-5.1); Sodium 139 mmol/L (136-145)
== END 2024-07-10 08:54 | disposition home or self-care (01) ==
LOC: ER 01:10
PROVIDERS: Emergency Provider Student in an Organized Health Care Education/Training Program; PCP Family Medicine
DX: R40.4 Transient alteration of awareness (principal); J18.9 Pneumonia, unspecified organism; R50.9 Fever, unspecified; I45.2 Bifascicular block; I27.20 Pulmonary hypertension, unspecified; I11.0 Hypertensive heart disease with heart failure; I50.32 Chronic diastolic (congestive) heart failure
CPT/HCPCS: 36415; 74177; 80053; 82805; 82962; 84145; 87040; 87637; 93005; 96365; 96367; 71045; 71260; 81003; 83605; 83880; 84484; 85025; 85610; 85730; 87086; 93010; 94660; 99285; J2020; J2543; J3490

== ENCOUNTER 2024-07-17 20:46 | Outpatient (REF) | payer MEDICARE, SELFPAY ==
[2024-07-17 16:50] LABS: Abs Immature Grans 0.04 10^3/uL (0.0-0.06); Absolute Basophil Count 0.07 10^3/uL (0.0-0.2); Absolute Eosinophil Count 0.57 10^3/uL (0.0-0.7); Absolute Lymphocyte Count 1.96 10^3/uL (1.2-3.4); Absolute Monocyte Count 0.85 10^3/uL (0.1-0.8); Basophils % 0.7 %; Eosinophils % 5.7 %; HCT 36.1 % (40.0-50.0); HGB 11.6 g/dL (13.5-17.5); Immature Grans % 0.4 %; Lymphocytes % 19.6 %; MCH 31.6 pg (27.0-33.0); MCHC 32.1 % (32.0-36.0); MCV 98 fL (80-95); Monocytes % 8.5 %; Neutrophils % 65.1 %; Platelet Count 307 10^3/uL (130-400); RBC 3.67 10^6/uL (4.36-5.78); RDW 14.6 % (11.8-14.1); WBC 9.99 10^3/uL (4.4-10.8)
[2024-07-17 17:24] LABS: Anion Gap 8.6 mmol/L (3-11); BUN 25 mg/dL (7-18); CO2 29.4 mmol/L (21.0-32.0); CREATININE 1.2 mg/dL (0.70-1.30); Calcium 9.2 mg/dL (8.5-10.1); Chloride 101 mmol/L (98-107); Estimated GFR 58.53 (mL/min/1.73m2); Glucose 125 mg/dL (74-106); Potassium 5.4 mmol/L (3.5-5.1); Sodium 139 mmol/L (136-145)
== END 2024-07-17 20:47 | disposition home or self-care (01) ==
LOC: NCHCN 20:46
PROVIDERS: PCP Family Medicine; Visit Provider Family Medicine
DX: J96.01 Acute respiratory failure with hypoxia (principal); I10 Essential (primary) hypertension
CPT/HCPCS: 80048; 85025

== ENCOUNTER 2024-07-24 16:07 | Emergency (ER) | payer MEDICARE, SELFPAY ==
[2024-07-24] VITALS (11 sets, daily range): BP systolic 119–139; BP diastolic 51–83; PULSE 66–74; RESP 13–21; TEMP 36.4; O2SAT 89–92
--- NOTE | 2024-07-24 16:07 | W.ED.GENAD ---
Discharge Plan Disposition Patient Disposition: Home Condition: Good Discharge Details Clinical Impression: Leg edema, Superficial ulcer of lower extremity Primary Care Provider: Yvonne Solorio ED Provider: Sharath Conrad Home Meds and New Rx's Prescriptions: No Action Linzess 290 mcg capsule 290 mcg PO DAILY PRN acetaminophen 500 MG tablet 1,000 mg PO Q4H PRN Patient Comments: Not on medication list naloxone [Narcan] 4 MG spray,non-aerosol 4 mg NS as directed 1 Days Qty: 2 0RF Rx Instructions: instill 1 spray into 1 nostril for opioid overdose-may repeat once in opposite nostril if no response latanoprost 0.005 % drops 1 drp ophthalmic (eye) DAILY oxycodone 10 MG tablet 10 mg PO QID PRN (Reason: Pain) tamsulosin 0.4 mg Capsule 0.4 mg PO HS albuterol sulfate 2.5 mg /3 mL (0.083 %) Solution For Nebulization 2.5 mg Inhalation Q6H PRN polyethylene glycol 3350 17 gram/dose powder 17 g PO DAILY PRN (Reason: Constipation) Patient Comments: TAKE 17G ONE CAPFUL BY MOUTH MIXED IN 8OZ OF LIQUID AND DRINK ONCE DAILY NEEDED albuterol sulfate [ProAir HFA] 90 mcg/actuation HFA aerosol inhaler 2 inh INHALATION Q4H PRN Patient Comments: INHALE TWO PUFFS BY MOUTH EVERY 4 TO 6 HOURS NEEDED gabapentin 600 mg tablet 600 mg PO QID Patient Comments: TAKE ONE TABLET BY MOUTH FOUR TIMES A DAY DIRECTED metoprolol succinate 100 mg tablet extended release 24 hr 100 mg PO DAILY Patient Comments: TAKE ONE TABLET BY MOUTH EVERY DAY Trelegy Ellipta 100-62.5-25 mcg blister with device 1 inh INHALATION QAM Patient Comments: INHALE ONE PUFF BY MOUTH EVERY MORNING quetiapine 25 mg tablet 75 mg PO HS losartan 50 mg tablet 50 mg PO DAILY Qty: 90 0RF furosemide [Lasix] 40 mg tablet 60 mg PO BID Qty: 90 0RF Discharge Instructions Instructions: How to Change a Wet to Dry Dressing Additional Instructions: Try to keep your legs elevated to help with the swelling present. Wet to dry dressing changes once a day. I did speak with [facility] who will coordinate with your home health nurse regarding dressing changes. You have an appointment at [facility] on July 30 and need to be there at 8:25 AM. It would be good if your son could be your transportation/helper. Return to ED for any worsening pain or redness to the legs, fever, confusion, weakness, difficulty breathing, other concerns. Referrals: Yvonne Solorio [Primary Care Provider] - 07/30/24 8:25 am HPI General Mode of arrival: EMS. Date/Time Provider Initiated Documentation: 07/24/24 16:07. Limitations to Documentation: no limitations. Information obtained by: patient, EMS, RN notes reviewed and old records reviewed. HPI Narrative: Patient presents to ED by ambulance with concern for leg infection. Patient himself has no real complaints of. States that home health thought he might need antibiotics. He denies any fever, chills, chest pain, shortness of breath, abdominal pain, confusion. Legs are edematous but much better than previous. He states was unable to get in to see PCP and home health thought he should be evaluated. His therefore called EMS. EMS reports somewhat confusing as to exactly what was going on and why he required transport to ED. He was here in the ED on the . At that time the nurse taking care of him today was his primary nurse then. She reports that he was in much worse condition than on a norepinephrine drip with markedly swollen legs and redness, fever. Related Data Home Medications ?Medication ?Instructions ?Recorded ?Confirmed acetaminophen 500 mg tablet 1,000 mg PO Q4H PRN 07/09/15 07/24/24 naloxone 4 mg/actuation nasal 4 mg NS as directed 1 day #2 sprays 01/23/18 07/24/24 spray (Narcan) oxycodone 10 mg tablet 10 mg PO QID PRN Pain 06/13/18 07/24/24 albuterol sulfate 2.5 mg/3 mL 2.5 mg inhalation Q6H PRN 04/21/19 07/24/24 (0.083 %) solution for nebulization tamsulosin 0.4 mg capsule 0.4 mg PO HS 04/21/19 07/24/24 linaclotide 290 mcg capsule 290 mcg PO DAILY PRN 05/22/19 07/24/24 (Linzess) fluticasone fur. 100 mcg-umeclid 1 inh inhalation QAM 02/24/21 07/24/24 62.5 mcg-vilant 25 mcg inhalat.powder (Trelegy Ellipta) albuterol sulfate 90 mcg/actuation 2 inh inhalation Q4H PRN 03/02/21 07/24/24 aerosol inhaler (ProAir HFA) polyethylene glycol 3350 17 17 g PO DAILY PRN Constipation 03/02/21 07/24/24 gram/dose oral powder gabapentin 600 mg tablet 600 mg PO QID 05/03/23 07/24/24 quetiapine 25 mg tablet 75 mg PO HS 08/03/23 07/24/24 metoprolol succinate 100 mg 100 mg PO DAILY 10/05/23 07/24/24 tablet,extended release 24 hr latanoprost 0.005 % eye drops 1 drp ophthalmic (eye) DAILY 11/21/23 07/24/24 furosemide 40 mg tablet (Lasix) 60 mg (1.5 x 40 mg) PO BID #90 tabs 02/01/24 07/24/24 losartan 50 mg tablet 50 mg PO DAILY #90 tabs 02/01/24 07/24/24 Previous Rx's ?Medication ?Instructions ?Recorded naloxone 4 mg/actuation nasal 4 mg NS as directed 1 day #2 sprays 01/23/18 spray (Narcan) furosemide 40 mg tablet (Lasix) 60 mg (1.5 x 40 mg) PO BID #90 tabs 02/01/24 losartan 50 mg tablet 50 mg PO DAILY #90 tabs 02/01/24 Allergies Allergy/AdvReac Type Severity Reaction Status Date / Time diclofenac Allergy Mild Other (See Verified 01/21/24 10:25 Comment) aspirin AdvReac Intermediate GI Bleeding Verified 01/21/24 10:25 NSAIDS (Non-Steroidal AdvReac Intermediate GI Bleeding Verified 01/21/24 10:25 Anti-Inflamma General DIAZ: 1 Review of Systems Narrative: Per HPI Exam Narrative Exam Narrative: Const: WDWN elderly male in NAD. VS per triage. HEENT: NC/AT. Normal facial exam. Neck: Supple. Trachea midline. Lungs: Normal respiratory effort. Lungs are clear. Cor: RRR with murmur. Good radial pulses. GI: Soft/ND/NT. Neuro: A+O x 3. Normal speech, mentation. Cranial nerves II - XII grossly intact. No gross motor or sensory deficit. Ext: No C/C. BLE edema, 2+ edema present, symmetric. Superficial ulcer right anterior lovell with mild erythema around the margins. No weeping, drainage, smell. Scabbed over ulcers without erythema left medial lovell. Medical Decision Making Patient presenting to ED with concern for leg swelling and possible infection. While he does have bilateral edema it is not overwhelming nor is it weeping and it is symmetric. He does have superficial ulcer right anterior lovell with some erythema around the margins but no overt cellulitis. I did call and speak with the triage nurse at [facility]. She had spoke with the patient's today but patient has not been seen since his discharge from [facility]. Discussed my findings and recommendation for wet-to-dry dressing changes once a day, leg elevation, follow-up. Patient has been made an appointment for July 30 at 8:40 in the morning. [facility] to reach out to his home health agency with recommendation regarding wet-to-dry dressing changes. I do not feel the patient requires oral antibiotics. I have discussed all this with the patient. He will be discharged home with return precautions. Medical Records Medical records reviewed: Yes I reviewed the patient's medical records. 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 (Acute) Right foot drop (Acute) Pain in thoracic spine (Acute) Urinary retention (Acute) Dyspnea (Acute) Neuropathic pain (Acute) Idiopathic osteoarthritis (Acute) Glaucoma (Chronic) Pleural plaque (Acute) Actinic keratosis (Acute) Disorder of lung (Acute) Steatosis, liver (Acute) Diastolic heart failure (Acute) Congestive heart failure (Chronic) Dementia (Chronic) Pain in lower limb (Acute) Insomnia (Acute) (HFpEF) heart failure with preserved ejection fraction (Acute) Restless leg syndrome (Acute) Cellulitis of lower extremity (Acute) Constipation (Acute) Decubital ulcer (Acute) Chronic anemia (Acute) 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 exposure (Acute) Respiratory failure with hypoxia (Acute) Bronchiectasis (Chronic) Nocturnal hypoxia (Acute) Dislodged Garcia catheter (Acute) Hematuria (Acute) Acute UTI (Acute) Abdominal pain (Acute) Diabetes mellitus (Chronic) BPH (benign prostatic hyperplasia) (Chronic) Essential hypertension (Acute) Lung infiltrate (Acute) UTI (urinary tract infection) (Acute) 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 [facility] [place] replacement of [place] (~1999) Right hip, later revised in 2005 left side 2007 Rotator Cuff Repair (~1996) Right Repair of inguinal hernia (08/31/11) Right sided with orchiectomy Endoscopic Carpal Tunnel release (05/04/15) Right by Dr. Ayala Extraction of cataract (02/15/16) [place] R with IOL; and L as well, Dr. Dickinson in [place] Family History Mother , CVA at age 85. Diabetes age 50 Essential hypertension Stroke Uterine cancer Father , Colon CA at age 87. Colon cancer Sister Breast cancer Sister Ovarian cancer Sister Ovarian cancer Brother Diabetes Son No problems noted. Daughter No problems noted. Son No problems noted. Social History Smoking/Tobacco Use Status: Never Smoking risk assessment performed?: Yes Alcohol Intake: never Drug use: Never Substance use type: does not use Caregiver/Support person: Yes Household members: spouse and children Housing: house Number of Children: 3 Communication Needs: Hard of Hearing and Corrective Lenses Do you need help understanding health information?: Always Do you think of yourself as: straight/heterosexual Current gender identity: male What is your relationship status?: How often do you talk on the phone with friends or family?: three or more times per week How often do you get together with friends or relatives?: three or more times per week Panel score (0-1 are the most socially isolated patients): 2 What type of physical activity do you participate in: sedentary lifestyle Special jesus needs: No Do you feel safe at home: Yes Do you feel safe in your relationship?: Yes Additional Social history: [place] lives with , Shawna and their younger son, Isiah. for almost 70 years (Shawna was 16, Phoenix was 21). Son Phoenix Jr visits every day. Lots of support.
== END 2024-07-24 17:57 | disposition home or self-care (01) ==
PROVIDERS: Emergency Provider Emergency Medicine; PCP Family Medicine
DX: R60.0 Localized edema (principal); L97.811 Non-pressure chronic ulcer of other part of right lower leg limited to breakdown of skin
CPT/HCPCS: 99282; 99283

== ENCOUNTER 2024-10-02 00:35 | Emergency (ER) | payer MEDICARE, SELFPAY ==
[2024-10-02] VITALS (28 sets, daily range): BP systolic 88–151; BP diastolic 50–87; PULSE 70–100; RESP 10–28; TEMP 36.3; O2SAT 83–95
--- NOTE | 2024-10-02 00:15 | RT.EKG_ITS ---
APPROVED REPORT Exam: Resting ECG Reason for Exam: AMS Patient Location: E HR:78 bpm ECG Measurements Heart Rate 78 AXIS MI [id number] P [id number] QRSd 161 QRS -167 QT 433 T -9 QTc 493 Conclusion Accelerated junctional rhythm...absent P waves, accele'd V-rate RBBB and LPFB...QRSd >120mS, axis(90,210) Physician: RBBB
--- NOTE | 2024-10-02 00:45 | DI.CT_ITS ---
Exam(s) CT HEAD WO EXAM: CT HEAD WO CLINICAL HISTORY: confused, altered, eval for stroke/bleed. TECHNIQUE: Imaging Protocol: Axial computed tomography images with coronal and sagittal reformatted images were created and reviewed COMPARISON: No exams were available for comparison FINDINGS: Ventricles and Extra axial spaces: Normal in size and morphology for the patient's age. Hemorrhage: None. Cerebral parenchyma: There are areas of decreased attenuation in the white matter which may reflect c hronic microvascular ischemic disease. No mass effect is identified. Midline shift: None. Brainstem/Cerebellum: Normal. Calvarium: Normal. Visualized Paranasal sinuses/Mastoids: Clear. Soft Tissues: Unremarkable. IMPRESSION: No acute intracranial process. RADIATION DOSE DELIVERED: 848.56mGy.cm Total DLP DATA REPOSITORY: All CT scans at this facility are submitted to the National Radiology Data Registry (NRDR) Dose Index Registry (DIR) with the [employer] (A[employer]). RADIATION OPTIMIZATION: All CT scans at this facility use at least one of these dose optimization te chniques: automated exposure control; mA and/or kV adjustment per patient size (includes targeted exa ms where dose is matched to clinical indication); or iterative reconstruction.
[2024-10-02 00:57] LABS: BE (Venous) 6 mmol/L (-2-3); HCO3 (Venous) 32 mmol/L (23-28); Lactate 1.1 mmol/L (0.6-1.4); O2 Sat (Venous) 77 %; TCO2 (Venous) 29 mmol/L (24-29); pCO2 (Venous) 57 mmHg (41-51); pH (Venous) 7.35 (7.31-7.41); pO2 (Venous) 47 mmHg
[2024-10-02 00:58] LABS: Abs Immature Grans 0.02 10^3/uL (0.0-0.06); Absolute Basophil Count 0.08 10^3/uL (0.0-0.2); Absolute Eosinophil Count 0.59 10^3/uL (0.0-0.7); Absolute Lymphocyte Count 1.54 10^3/uL (1.2-3.4); Absolute Monocyte Count 1.07 10^3/uL (0.1-0.8); Absolute Neutrophil Count 4.03 10^3/uL (1.2-6.7); Basophils % 1.1 %; HCT 35.6 % (40.0-50.0); HGB 11.3 g/dL (13.5-17.5); Immature Grans % 0.3 %; MCH 31.4 pg (27.0-33.0); MCHC 31.7 % (32.0-36.0); MCV 99 fL (80-95); MPV 10.1 fL (8.0-11.0); Monocytes % 14.6 %; Platelet Count 290 10^3/uL (130-400); RDW 14.4 % (11.8-14.1); WBC 7.33 10^3/uL (4.4-10.8)
--- NOTE | 2024-10-02 01:02 | W.ED.GENAD ---
Discharge Plan Disposition Patient Disposition: Home Condition: Good Discharge Details Chief Complaint: GenMedical Clinical Impression: Encounter for medical assessment Primary Care Provider: Yvonne Solorio ED Provider: Pasha Carballo Home Meds and New Rx's Prescriptions: No Action Linzess 290 mcg capsule 290 mcg PO DAILY PRN acetaminophen 500 MG tablet 1,000 mg PO Q4H PRN Patient Comments: Not on medication list naloxone [Narcan] 4 MG spray,non-aerosol 4 mg NS as directed 1 Days Qty: 2 0RF Rx Instructions: instill 1 spray into 1 nostril for opioid overdose-may repeat once in opposite nostril if no response latanoprost 0.005 % drops 1 drp ophthalmic (eye) DAILY oxycodone 10 MG tablet 10 mg PO QID PRN (Reason: Pain) tamsulosin 0.4 mg Capsule 0.4 mg PO HS albuterol sulfate 2.5 mg /3 mL (0.083 %) Solution For Nebulization 2.5 mg Inhalation Q6H PRN polyethylene glycol 3350 17 gram/dose powder 17 g PO DAILY PRN (Reason: Constipation) Patient Comments: TAKE 17G ONE CAPFUL BY MOUTH MIXED IN 8OZ OF LIQUID AND DRINK ONCE DAILY NEEDED albuterol sulfate [ProAir HFA] 90 mcg/actuation HFA aerosol inhaler 2 inh INHALATION Q4H PRN Patient Comments: INHALE TWO PUFFS BY MOUTH EVERY 4 TO 6 HOURS NEEDED gabapentin 600 mg tablet 600 mg PO QID Patient Comments: TAKE ONE TABLET BY MOUTH FOUR TIMES A DAY DIRECTED metoprolol succinate 100 mg tablet extended release 24 hr 100 mg PO DAILY Patient Comments: TAKE ONE TABLET BY MOUTH EVERY DAY Trelegy Ellipta 100-62.5-25 mcg blister with device 1 inh INHALATION QAM Patient Comments: INHALE ONE PUFF BY MOUTH EVERY MORNING quetiapine 25 mg tablet 75 mg PO HS losartan 50 mg tablet 50 mg PO DAILY Qty: 90 0RF furosemide [Lasix] 40 mg tablet 60 mg PO BID Qty: 90 0RF Discharge Instructions Additional Instructions: At this time your workup is returned reassuring. Your CAT scan of your brain shows no signs of stroke or bleed. There is no evidence of urinary tract infection. Your electrolytes are normal. If you notice any worsening of your symptoms, or any new symptoms such as vomiting, diarrhea, fever, chills, shortness of breath, chest pain, numbness, weakness, or fainting , please return immediately to the emergency department for reevaluation. Please follow up with your primary care provider as soon as possible for reassessment and reevaluation. As always, it was a pleasure participating in your medical care today. Referrals: Yvonne Solorio [Primary Care Provider] - [facility] General Date/Time Provider Initiated Documentation: 10/02/24 00:47. HPI Narrative: This is an 89-year-old male with a past medical history of GERD, hypertension, diabetes, BPH, congestive heart failure, lung disease chronically on 4 L, chronic right leg weakness, and chronic right upper shoulder arthritis, who presents today for evaluation of altered mental status. Patient states that he did not sleep well yesterday, so he was quite tired this evening. While sleeping at around midnight tonight the patient's attempted to wake him up. She stated that she could not wake him up. She contacted 911/EMS. Upon their arrival they sternal rub the patient and they stated that he woke right up. He was ANO x 3 and had no complaints. Blood sugar was normal, vital signs stable. He was brought into the ER for further evaluation. Patient has no complaints at this time. He denies any dysuria, chest pain, headache, neck pain, shortness of breath. He states he has been eating slightly less than normal but denies any changes otherwise. Related Data Home Medications ?Medication ?Instructions ?Recorded ?Confirmed acetaminophen 500 mg tablet 1,000 mg PO Q4H PRN 07/09/15 10/02/24 naloxone 4 mg/actuation nasal 4 mg NS as directed 1 day #2 sprays 01/23/18 10/02/24 spray (Narcan) oxycodone 10 mg tablet 10 mg PO QID PRN Pain 06/13/18 10/02/24 albuterol sulfate 2.5 mg/3 mL 2.5 mg inhalation Q6H PRN 04/21/19 10/02/24 (0.083 %) solution for nebulization tamsulosin 0.4 mg capsule 0.4 mg PO HS 04/21/19 10/02/24 linaclotide 290 mcg capsule 290 mcg PO DAILY PRN 05/22/19 10/02/24 (Linzess) fluticasone fur. 100 mcg-umeclid 1 inh inhalation QAM 02/24/21 10/02/24 62.5 mcg-vilant 25 mcg inhalat.powder (Trelegy Ellipta) albuterol sulfate 90 mcg/actuation 2 inh inhalation Q4H PRN 03/02/21 10/02/24 aerosol inhaler (ProAir HFA) polyethylene glycol 3350 17 17 g PO DAILY PRN Constipation 03/02/21 10/02/24 gram/dose oral powder gabapentin 600 mg tablet 600 mg PO QID 05/03/23 10/02/24 quetiapine 25 mg tablet 75 mg PO HS 08/03/23 10/02/24 metoprolol succinate 100 mg 100 mg PO DAILY 10/05/23 10/02/24 tablet,extended release 24 hr latanoprost 0.005 % eye drops 1 drp ophthalmic (eye) DAILY 11/21/23 10/02/24 furosemide 40 mg tablet (Lasix) 60 mg (1.5 x 40 mg) PO BID #90 tabs 02/01/24 10/02/24 losartan 50 mg tablet 50 mg PO DAILY #90 tabs 02/01/24 10/02/24 Previous Rx's ?Medication ?Instructions ?Recorded naloxone 4 mg/actuation nasal 4 mg NS as directed 1 day #2 sprays 01/23/18 spray (Narcan) furosemide 40 mg tablet (Lasix) 60 mg (1.5 x 40 mg) PO BID #90 tabs 02/01/24 losartan 50 mg tablet 50 mg PO DAILY #90 tabs 02/01/24 Allergies Allergy/AdvReac Type Severity Reaction Status Date / Time diclofenac Allergy Mild Other (See Verified 10/02/24 00:48 Comment) aspirin AdvReac Intermediate GI Bleeding Verified 10/02/24 00:48 NSAIDS (Non-Steroidal AdvReac Intermediate GI Bleeding Verified 10/02/24 00:48 Anti-Inflamma General Stated Complaint: GenMedical DIAZ: 3 Review of Systems All systems reviewed & are unremarkable except as noted in HPI and below Exam Narrative Exam Narrative: 1.Const: Well-nourished, Well-developed, appearing stated age 2.Eyes: PERRL, no conjunctival injection, and symmetrical lids. 3.ENT: Atraumatic external nose and ears. Dry MM. Neck: Symmetric, trachea midline, No thyromegaly. 4.CVS: +S1/S2, Peripheral pulses 2+ and equal in all extremities. Brisk capillary refill in all extremities. 5.RESP: Unlabored respiratory effort. Clear to auscultation bilaterally. No wheezes rales or rhonchi 6.GI: Soft, Nontender/Nondistended, No hepatosplenomegaly. No guarding or rebound. 7.MSK: Normocephalic/Atraumatic, Extremities w/o deformity or ttp No cyanosis or clubbing, Normal movement of all extremities 8.Skin: Warm, Dry. No rashes or lesions. 9.Neuro: disbursement clerk II-XII grossly intact. Sensation grossly intact, no focal neurologic deficits. All 6 cardinal planes of vision are fully intact. No evidence of rotatory or vertical nystagmus. The patient demonstrated a normal [id number]-[id number], good dexterity. There was no evidence of dysdiadochokinesia. Patient was able to ambulate without difficulty. There was no wide-based gait. Romberg testing was normal. Xqgv-jd-[id number] testing was normal. Sensation was intact bilaterally as well as muscle strength bilaterally for all extremities. Patient was able to verbalize butter cup with no slurring, or miss pronunciation. 10.Psych: (AAO) x3. Appropriate mood and affect Course Vital Signs Vital signs: Vital Signs Temperature 36.3 C L 10/02/24 00:37 Pulse 75 10/02/24 00:37 Respiratory Rate 22 10/02/24 00:37 Blood Pressure 146/74 H 10/02/24 00:37 Pulse Oximetry 95 10/02/24 00:37 Temperature 36.3 C L 10/02/24 00:42 Temperature Source Temporal Artery Scan 10/02/24 00:42 Pulse 81 10/02/24 00:55 Pulse 80 10/02/24 00:55 Respiratory Rate 10 L 10/02/24 00:55 Respiratory Effort Normal, Non-Labored 10/02/24 00:42 Respiratory Depth Normal 10/02/24 00:42 Respiratory Pattern Normal 10/02/24 00:42 Blood Pressure 126/68 10/02/24 00:55 Blood Pressure Mean 85 10/02/24 00:55 Pulse Oximetry 95 10/02/24 00:55 Oxygen Delivery Method Room Air 10/02/24 00:42 Oxygen Flow Rate 0 10/02/24 00:37 Pain Level 0 10/02/24 00:42 Comment 3L NC 10/02/24 00:55 Lab/Test Results Lab/Test Results: Laboratory Tests Range/Units 10/02/24 00:40 WBC (4.4-10.8) 10^3/uL 7.33 RBC (4.36-5.78) 10^6/uL 3.60 L Hgb (13.5-17.5) g/dL 11.3 L Hct (40.0-50.0) % 35.6 L MCV (80-95) fL 99 H MCH (27.0-33.0) pg 31.4 MCHC (32.0-36.0) % 31.7 L RDW (11.8-14.1) % 14.4 H Plt Count (130-400) 10^3/uL 290 MPV (8.0-11.0) fL 10.1 Immature Gran % % 0.3 Neutrophils % % 55.0 Lymphocytes % % 21.0 Monocytes % % 14.6 Eosinophils % % 8.0 Basophils % % 1.1 Nucleated RBC % (0.0-0.3) % 0.0 Absolute Neutrophils (1.2-6.7) 10^3/uL 4.03 Absolute Lymphocytes (1.2-3.4) 10^3/uL 1.54 Absolute Monocytes (0.1-0.8) 10^3/uL 1.07 H Absolute Eosinophils (0.0-0.7) 10^3/uL 0.59 Absolute Basophils (0.0-0.2) 10^3/uL 0.08 VBG pH (7.31-7.41) 7.35 VBG pCO2 (41-51) mmHg 57 H VBG pO2 mmHg 47 VBG HCO3 (23-28) mmol/L 32 H VBG Total CO2 (24-29) mmol/L 29 VBG O2 Saturation % 77 VBG Base Excess (-2-3) mmol/L 6 H VBG Lactate (0.6-1.4) mmol/L 1.1 Medical Decision Making This is an 89-year-old male with a past medical history of GERD, hypertension, diabetes, BPH, congestive heart failure, lung disease chronically on 4 L, chronic right leg weakness, and chronic right upper shoulder arthritis, who presents today for evaluation of altered mental status. Patient states that he did not sleep well yesterday, so he was quite tired this evening. While sleeping at around midnight tonight the patient's attempted to wake him up. She stated that she could not wake him up. She contacted 911/EMS. Upon their arrival they sternal rub the patient and they stated that he woke right up. He was ANO x 3 and had no complaints. Blood sugar was normal, vital signs stable. He was brought into the ER for further evaluation. Patient has no complaints at this time. He denies any dysuria, chest pain, headache, neck pain, shortness of breath. He states he has been eating slightly less than normal but denies any changes otherwise. Exam demonstrates dry mucous membranes, but no acute neurologic deficits. He is ANO x 3 and shows no chest pain headache neck pain shortness of breath. Symptoms inconsistent with meningitis, ACS, urosepsis, or other life-threatening etiology. Differential does include very unlikely stroke, potential infection including urinary, potential hypercarbic respiratory acidosis, but most likely the patient was just sleeping and difficult to arouse because of that. However we will evaluate for other concerning etiologies, monitor closely and reassess. 6:28 AM Laboratory workup has returned unremarkable, no white count, hemoglobin at baseline, VBG demonstrates stability with a stable pH in the setting of mildly elevated pCO2. Electrolytes normal, lactate normal. Urinalysis normal, thyroid function normal, CT scan of the head negative for acute process stroke or bleed. Patient continues to demonstrate normal neurologic exam throughout his time here, he was allowed to sleep for few hours since there is currently a snowstorm and his is not able to drive. He was able to be woken up easily with no signs of altered mental status or difficulty arousing. No evidence to suggest stroke, bleed, meningitis, infection or other acute etiology. Patient stable for discharge home. Discussed red flags for which to return. I have extensively reviewed the treatment plan and discharge instructions with the patient. I have addressed all patient concerns at this time. The patient was made aware of what symptoms to monitor for that would warrant a return to the emergency department. Discussed the plan with the patient, they demonstrate verbal understanding and agreement with our assessment and plan at this time. The documentation in this chart was dictated using [employer] dictation software. Please excuse any dictation errors. FINDINGS: Brain: There are bilateral periventricular white matter and centrum semiovale hypodensities, consistent with chronic ischemic small vessel disease. No recent infarct, intracranial bleed or mass effect. Cerebral ventricles: No ventriculomegaly. Paranasal sinuses: Visualized sinuses are unremarkable. No fluid levels. Mastoid air cells: Visualized mastoid air cells are well aerated. Orbital cavities: Post bilateral cataract surgery. Bones: Unremarkable. No acute fracture. Soft tissues: Unremarkable. IMPRESSION: No large territorial infarct or intracranial bleed. Thank you for allowing us to participate in the care of your patient. 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 (Acute) Right foot drop (Acute) Pain in thoracic spine (Acute) Urinary retention (Acute) Dyspnea (Acute) Neuropathic pain (Acute) Idiopathic osteoarthritis (Acute) Glaucoma (Chronic) Pleural plaque (Acute) Actinic keratosis (Acute) Disorder of lung (Acute) Steatosis, liver (Acute) Diastolic heart failure (Acute) Congestive heart failure (Chronic) Dementia (Chronic) Pain in lower limb (Acute) Insomnia (Acute) (HFpEF) heart failure with preserved ejection fraction (Acute) Restless leg syndrome (Acute) Cellulitis of lower extremity (Acute) Constipation (Acute) Decubital ulcer (Acute) Chronic anemia (Acute) 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 exposure (Acute) Respiratory failure with hypoxia (Acute) Bronchiectasis (Chronic) Nocturnal hypoxia (Acute) Dislodged Garcia catheter (Acute) Hematuria (Acute) Acute UTI (Acute) Abdominal pain (Acute) Diabetes mellitus (Chronic) BPH (benign prostatic hyperplasia) (Chronic) Essential hypertension (Acute) Lung infiltrate (Acute) UTI (urinary tract infection) (Acute) 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 Cortes [facility] [place] [facility] Total replacement of hip (~1999) Right hip, later revised in 2005 left side 2006 Rotator Cuff Repair (~1996) Right Repair of inguinal hernia (08/31/11) Right sided with orchiectomy Endoscopic Carpal Tunnel release (05/04/15) Right by Dr. Ayala Extraction of cataract (02/15/16) [facility] with IOL; and L as well, Dr. Dickinson in [place] Family History Mother , CVA at age 85. Diabetes age 50 Essential hypertension Stroke Uterine cancer Father , Colon CA at age 87. Colon cancer Sister Breast cancer Sister Ovarian cancer Sister Ovarian cancer Brother Diabetes Son No problems noted. Daughter No problems noted. Son No problems noted. Social History Smoking/Tobacco Use Status: Never Smoking risk assessment performed?: Yes Alcohol Intake: never Drug use: Never Substance use type: does not use Caregiver/Support person: Yes Household members: spouse and children Housing: house Number of Children: 3 Communication Needs: Hard of Hearing and Corrective Lenses Do you need help understanding health information?: Always Do you think of yourself as: straight/heterosexual Current gender identity: male What is your relationship status?: How often do you talk on the phone with friends or family?: three or more times per week How often do you get together with friends or relatives?: three or more times per week Panel score (0-1 are the most socially isolated patients): 2 What type of physical activity do you participate in: sedentary lifestyle Special jesus needs: No Do you feel safe at home: Yes Do you feel safe in your relationship?: Yes Additional Social history: Phoenix lives with , Shawna and their younger son, Isiah. for almost 70 years (Shawna was 16, Phoenix was 21). Son Phoenix Sims visits every day. Lots of support.
--- NOTE | 2024-10-02 01:16 | DI.VRAD_ITS ---
PROCEDURE INFORMATION: Exam: CT Head Without Contrast Exam date and time: 10/02/2024 12:58 AM Age: 89 years old Clinical indication: Altered mental status/memory loss and other: Confused, altered, eval for stroke/bleed; Confusion or disorientation TECHNIQUE: Imaging protocol: Computed tomography of the head without contrast. COMPARISON: No relevant prior studies available. FINDINGS: Brain: There are bilateral periventricular white matter and centrum semiovale hypodensities, consistent with chronic ischemic small vessel disease. No recent infarct, intracranial bleed or mass effect. Cerebral ventricles: No ventriculomegaly. Paranasal sinuses: Visualized sinuses are unremarkable. No fluid levels. Mastoid air cells: Visualized mastoid air cells are well aerated. Orbital cavities: Post bilateral cataract surgery. Bones: Unremarkable. No acute fracture. Soft tissues: Unremarkable. IMPRESSION: No large territorial infarct or intracranial bleed. Dictated and Authenticated by: Israel Judge MD. Ordering:WINNIE Pak MD
[2024-10-02 01:23] LABS: ALT 12 U/L (16-63); AST 12 U/L (15-37); Albumin 3.5 g/dL (3.4-5.0); Alkaline Phosphatase 129 U/L (46-116); Anion Gap 7.4 mmol/L (3-11); BUN 29 mg/dL (7-18); Bilirubin, Total 0.48 mg/dL (0.2-1.0); CO2 31.6 mmol/L (21.0-32.0); CREATININE 1.4 mg/dL (0.70-1.30); Calcium 8.9 mg/dL (8.5-10.1); Chloride 102 mmol/L (98-107); Estimated GFR 48.65 (mL/min/1.73m2); Glucose 113 mg/dL (74-106); Sodium 141 mmol/L (136-145); TSH (W/Ref FT4) 3.65 uIU/mL (0.36-3.74); Total Protein 7.6 g/dL (6.4-8.2)
[2024-10-02 05:29] LABS: Bilirubin Negative (Negative); Blood Negative (Negative); Clarity Clear (Clear); Glucose Negative (Negative); Ketones Negative (Negative); Leukocyte Esterase Negative (Negative); Nitrite Negative (Negative); Urobilinogen 0.2 mg/dL (Up to 0.2); pH 5.5 (5-8)
== END 2024-10-02 06:51 | disposition home or self-care (01) ==
PROVIDERS: Emergency Provider Student in an Organized Health Care Education/Training Program; PCP Family Medicine
DX: R41.82 Altered mental status, unspecified (principal); I10 Essential (primary) hypertension; I50.30 Unspecified diastolic (congestive) heart failure; E11.9 Type 2 diabetes mellitus without complications; N40.0 Benign prostatic hyperplasia without lower urinary tract symptoms; J47.9 Bronchiectasis, uncomplicated; R53.1 Weakness; K21.9 Gastro-esophageal reflux disease without esophagitis
CPT/HCPCS: 36415; 80053; 82805; 93005; 99284; 70450; 81003; 83605; 84443; 85025; 93010